=== PATIENT | female | born 1940 | race Caucasian/White ===

== ENCOUNTER → 2016-10-05 | Outpatient (REF) | payer MEDICARE, MEDICAID ==
[~2016-10-05] MED LIST: /ESOM40CA OR; /SUCR1TA OR; ASPI81TA45 OR; CALCTAB22 OR; DRIS50002 PO; TYLE167L PO
[2016-10-05 16:32] LABS: ANION GAP 9 MEQ/L (8-16); BLOOD UREA NITROGEN 12 MG/DL (7-18); CALCIUM LEVEL 8.8 MG/DL (8.8-10.2); CARBON DIOXIDE LEVEL 25 MEQ/L (21-32); CHLORIDE LEVEL 108 MEQ/L (98-107); CREATININE FOR GFR 0.81 MG/DL (0.55-1.02); GLOMERULAR FILTRATION RATE > 60.0 (>39); GLUCOSE, FASTING 89 MG/DL (83-110); POTASSIUM SERUM 4.4 MEQ/L (3.5-5.1); SODIUM LEVEL 142 MEQ/L (136-145)
[2016-10-05 17:11] LABS: BASO % 0.5 % (0.0-1.0); EOS # 0.2 K/mm3 (0.0-0.50); EOS % 3.1 % (0.0-3.0); LARGE UNSTAINED CELL # 0.2 K/mm3 (0.0-0.4); LARGE UNSTAINED CELL % 2.6 % (0.0-4.0); LYMPH # 2.5 K/mm3 (1.5-4.5); LYMPH % 36.2 % (24.0-44.0); MEAN CORPUSCULAR HEMOGLOBIN 28.4 pg (27.0-33.0); MEAN CORPUSCULAR HGB CONC 32.1 g/dl (32.0-36.5); MEAN CORPUSCULAR VOLUME 88.4 fl (80.0-96.0); MONO # 0.5 K/mm3 (0.0-0.8); MONO % 7.6 % (0.0-5.0); NEUTROPHILS # 3.4 K/mm3 (1.8-7.7); NEUTROPHILS % 49.8 % (36.0-66.0); PLATELET COUNT, AUTOMATED 347 k/mm3 (150-450); RED CELL DISTRIBUTION WIDTH 13.1 % (11.5-14.5); WHITE BLOOD COUNT 6.8 K/mm3 (4.0-10.0)
== END ==
LOC: M SFHCPLAZ 13:34
PROVIDERS: ATTEND Physician Assistant Medical
DX: N39.0 Urinary tract infection, site not specified (principal)
CPT/HCPCS: 36415; 80048; 81001; 81002; 85025; 87088; 87186; G0463

== ENCOUNTER → 2016-10-27 | Outpatient (CLI) | payer MEDICARE, MEDICAID ==
--- NOTE | 2016-10-27 11:57 | REPMRS ---
Patient History The patient states she has not had a clinical breast exam in over a year. Patient is postmenopausal. Family history of breast cancer in sister at age 50 or over and ovarian cancer in sister. Digital Woman Screen Mammo: October 27, 2016 - Exam #: [id number] Bilateral CC and MLO view(s) were taken. Technologist: Teri Kaba, Technologist Prior study comparison: November 03, 2015, digital woman screen mammo performed at [facility]. October 31, 2014, digital woman screen mammo performed at [facility]. October 05, 2013, digital woman screen mammo performed at [facility] [place]. FINDINGS: There are scattered fibroglandular densities. There has been no change in the appearance of the mammogram from the prior studies. There is a mild amount of scattered fibroglandular density which is fairly symmetric. There is no interval development of dominant mass, architectural distortion, or clustered microcalcification suggestive of malignancy. ASSESSMENT: BI-RADS/ACR category 1 mammogram. Negative. Recommendation Routine screening mammogram in 1 year (for women over age 40). This mammogram was interpreted with the aid of an FDA-approved computer-aided dectection system. Electronically Signed By: Cosme Lemus MD 10/27/16 0730
== END ==
LOC: M WHC 09:58
PROVIDERS: ATTEND Family Medicine
DX: Z12.31 Encounter for screening mammogram for malignant neoplasm of breast (principal); Z78.0 Asymptomatic menopausal state; Z80.3 Family history of malignant neoplasm of breast
CPT/HCPCS: G0202; G0463

== ENCOUNTER → 2016-12-17 | Outpatient (REF) | payer MEDICARE, MEDICAID ==
[2016-12-17 11:27] LABS: BASO % 0.4 % (0.0-1.0); EOS # 0.3 K/mm3 (0.0-0.50); EOS % 3.9 % (0.0-3.0); LARGE UNSTAINED CELL # 0.1 K/mm3 (0.0-0.4); LARGE UNSTAINED CELL % 1.8 % (0.0-4.0); LYMPH # 2.5 K/mm3 (1.5-4.5); LYMPH % 35.4 % (24.0-44.0); MEAN CORPUSCULAR HEMOGLOBIN 27.4 pg (27.0-33.0); MEAN CORPUSCULAR HGB CONC 31.4 g/dl (32.0-36.5); MEAN CORPUSCULAR VOLUME 87.4 fl (80.0-96.0); MONO # 0.5 K/mm3 (0.0-0.8); MONO % 7.2 % (0.0-5.0); NEUTROPHILS # 3.4 K/mm3 (1.8-7.7); NEUTROPHILS % 51.3 % (36.0-66.0); PLATELET COUNT, AUTOMATED 346 k/mm3 (150-450); RED CELL DISTRIBUTION WIDTH 14.4 % (11.5-14.5); WHITE BLOOD COUNT 6.6 K/mm3 (4.0-10.0)
[2016-12-17 11:39] LABS: ALBUMIN 3.7 GM/DL (3.2-5.2); ALBUMIN/GLOBULIN RATIO 1.19 (1.00-1.93); ALKALINE PHOSPHATASE 92 U/L (45-117); ALT/SGPT 18 U/L (12-78); ANION GAP 7 MEQ/L (8-16); AST/SGOT 13 U/L (15-37); BILIRUBIN,TOTAL 0.4 MG/DL (0.2-1.0); BLOOD UREA NITROGEN 16 MG/DL (7-18); CALCIUM LEVEL 8.8 MG/DL (8.8-10.2); CARBON DIOXIDE LEVEL 28 MEQ/L (21-32); CHLORIDE LEVEL 109 MEQ/L (98-107); CHOLESTEROL LEVEL 176 MG/DL (<200); CREATININE FOR GFR 0.89 MG/DL (0.55-1.02); GLOMERULAR FILTRATION RATE > 60.0 (>39); GLUCOSE, FASTING 85 MG/DL (83-110); POTASSIUM SERUM 4.5 MEQ/L (3.5-5.1); SODIUM LEVEL 144 MEQ/L (136-145); TOTAL PROTEIN 6.8 GM/DL (6.4-8.2); TRIGLYCERIDES LEVEL 73 MG/DL (<150)
== END ==
LOC: M SFHCPLAZ 09:03
PROVIDERS: ATTEND Family Medicine
DX: K21.9 Gastro-esophageal reflux disease without esophagitis (principal); R73.01 Impaired fasting glucose

== ENCOUNTER → 2017-01-25 | Outpatient (REF) | payer MEDICARE, MEDICAID ==
[2017-01-25 18:25] LABS: WHITE BLOOD COUNT 7.5 K/mm3 (4.0-10.0)
[2017-01-25 18:26] LABS: MEAN CORPUSCULAR HEMOGLOBIN 28.7 pg (27.0-33.0); MEAN CORPUSCULAR HGB CONC 32.2 g/dl (32.0-36.5); MEAN CORPUSCULAR VOLUME 89.3 fl (80.0-96.0); RED CELL DISTRIBUTION WIDTH 14.1 % (11.5-14.5)
[2017-01-25 18:53] LABS: ERYTHROCYTE SEDIMENTATION RATE 10 mm/hr (0-30)
[2017-01-25 19:06] LABS: BASOPHILS 1 % (0-4); EOSINOPHILS 4 % (0-5)
[2017-02-03 14:18] LABS: ANTI SCLERODERMA ANTIBODIES <0.2 AI (0.0-0.9)
== END ==
LOC: M SFHCPLAZ 13:36
PROVIDERS: ATTEND Family Medicine
DX: I73.00 Raynaud's syndrome without gangrene (principal); Z79.82 Long term (current) use of aspirin; Z79.899 Other long term (current) drug therapy; M75.41 Impingement syndrome of right shoulder; M16.9 Osteoarthritis of hip, unspecified; M70.61 Trochanteric bursitis, right hip; K21.9 Gastro-esophageal reflux disease without esophagitis; M85.80 Other specified disorders of bone density and structure, unspecified site; E78.2 Mixed hyperlipidemia; R73.01 Impaired fasting glucose; E55.9 Vitamin D deficiency, unspecified; M50.30 Other cervical disc degeneration, unspecified cervical region; Z86.73 Personal history of transient ischemic attack (TIA), and cerebral infarction without residual deficits
CPT/HCPCS: 36415; 83615; 85007; 85027; 85652; 85730; 86021; 86038; 86140; 86235; G0463

== ENCOUNTER → 2017-04-29 | Outpatient (REF) | payer MEDICARE, MEDICAID ==
[2017-04-29 12:13] LABS: ALBUMIN 3.7 GM/DL (3.2-5.2); ALBUMIN/GLOBULIN RATIO 1.32 (1.00-1.93); ALKALINE PHOSPHATASE 71 U/L (45-117); ALT/SGPT 18 U/L (12-78); ANION GAP 8 MEQ/L (8-16); AST/SGOT 10 U/L (15-37); BILIRUBIN,TOTAL 0.4 MG/DL (0.2-1.0); BLOOD UREA NITROGEN 15 MG/DL (7-18); CALCIUM LEVEL 8.5 MG/DL (8.8-10.2); CARBON DIOXIDE LEVEL 27 MEQ/L (21-32); CHLORIDE LEVEL 110 MEQ/L (98-107); CREATININE FOR GFR 0.86 MG/DL (0.55-1.02); FERRITIN 21 NG/ML (8-252); GLOMERULAR FILTRATION RATE > 60.0 (>39); GLUCOSE, FASTING 82 MG/DL (83-110); PERCENT SATURATION 26.4 % (13.2-45.0); POTASSIUM SERUM 4.7 MEQ/L (3.5-5.1); SODIUM LEVEL 145 MEQ/L (136-145); TOTAL IRON BINDING CAPACITY 273 UG/DL (250-450); TOTAL PROTEIN 6.5 GM/DL (6.4-8.2)
== END ==
LOC: M SFHCPLAZ 09:22
PROVIDERS: ATTEND Family Medicine
DX: E55.9 Vitamin D deficiency, unspecified (principal); K21.9 Gastro-esophageal reflux disease without esophagitis; R73.01 Impaired fasting glucose; I44.0 Atrioventricular block, first degree

== ENCOUNTER → 2017-05-11 | Outpatient (REF) | payer MEDICARE, MEDICAID | LOC: M LAB REF 10:41 | PROVIDERS: ATTEND Physician Assistant Medical | DX: J31.0 Chronic rhinitis (principal) ==

== ENCOUNTER → 2017-06-23 | Outpatient (CLI) | payer MEDICARE, MEDICAID ==
--- NOTE | 2017-06-23 14:42 | REP ---
CT of the chest without IV contrast: There are no comparisons. There are no infiltrates, effusions, masses or nodules. There is no mediastinal or axillary adenopathy. No mediastinal hematoma. In the absence of IV contrast the study is insensitive for hilar adenopathy. The thoracic aorta is unremarkable except for occasional calcified atheroma. The cardiac size is normal. There is no pericardial effusion. The visualized upper abdominal contents are unremarkable. Surgical clips in the gallbladder fossa. There is a nondisplaced fracture of the manubrium. There is grade 1 compression deformity of the T3 vertebral body. Impression: Nondisplaced fracture manubrium. Grade 1 compression deformity of the T3 vertebral body. Otherwise, negative CT study of the chest. There is no pneumothorax or hemothorax. No nodules or masses. Signed by Gabriel Mason MD 06/23/2017 02:33 P
== END ==
LOC: M RAD 13:06
PROVIDERS: ATTEND Family Medicine
DX: M79.2 Neuralgia and neuritis, unspecified (principal)

== ENCOUNTER → 2017-08-03 | Outpatient (REF) | payer MEDICARE, MEDICAID | LOC: M LAB REF 16:58 | PROVIDERS: ATTEND Physician Assistant Medical | DX: J31.0 Chronic rhinitis (principal) ==

== ENCOUNTER → 2017-08-31 | Outpatient (REF) | payer MEDICARE, MEDICAID ==
[2017-08-31 11:09] LABS: ALBUMIN 3.8 GM/DL (3.2-5.2); ALBUMIN/GLOBULIN RATIO 1.19 (1.00-1.93); ALKALINE PHOSPHATASE 86 U/L (45-117); ALT/SGPT 17 U/L (12-78); ANION GAP 7 MEQ/L (8-16); AST/SGOT 16 U/L (7-37); BILIRUBIN,TOTAL 0.4 MG/DL (0.2-1.0); BLOOD UREA NITROGEN 13 MG/DL (7-18); CALCIUM LEVEL 8.8 MG/DL (8.8-10.2); CARBON DIOXIDE LEVEL 26 MEQ/L (21-32); CHLORIDE LEVEL 111 MEQ/L (98-107); CHOLESTEROL LEVEL 179 MG/DL (<200); CREATININE FOR GFR 0.72 MG/DL (0.55-1.02); GLOMERULAR FILTRATION RATE > 60.0 (>39); GLUCOSE, FASTING 81 MG/DL (83-110); POTASSIUM SERUM 4.4 MEQ/L (3.5-5.1); SODIUM LEVEL 144 MEQ/L (136-145); TRIGLYCERIDES LEVEL 73 MG/DL (<150)
== END ==
LOC: M SFHCPLAZ 08:49
PROVIDERS: ATTEND Family Medicine
DX: E55.9 Vitamin D deficiency, unspecified (principal); E78.2 Mixed hyperlipidemia; R73.01 Impaired fasting glucose

== ENCOUNTER → 2017-09-05 | Outpatient (REF) | payer MEDICARE, MEDICAID ==
[2017-09-05 16:33] LABS: CALCIUM OXALATE CRYSTALS SMALL
== END ==
LOC: M SFHCPLAZ 12:42
PROVIDERS: ATTEND Family Medicine
DX: R73.01 Impaired fasting glucose (principal); D50.9 Iron deficiency anemia, unspecified; N32.81 Overactive bladder; Z79.82 Long term (current) use of aspirin; Z79.899 Other long term (current) drug therapy

== ENCOUNTER → 2017-09-08 | Outpatient (CLI) | payer MEDICARE, MEDICAID ==
--- NOTE | 2017-09-08 14:48 | REP ---
ULTRASOUND URINARY BLADDER: Real-time sonographic evaluation of the urinary bladder performed. The patient states the bladder is full. It measures 5.5 x 6.7 x 5.7 cm for a total volume of 137 mL. After voiding, volume actually increased, bladder measuring 4.3 x 7.1 x 4.8 cm for a total volume of 147 mL. No bladder wall thickening or mass is seen. No intraluminal calculus is seen. There are bilateral ureteral jets in the urinary bladder with Doppler color evaluation. IMPRESSION: Suboptimal distention of the bladder with no emptying after voiding. No mass or calculus. Signed by Gabriel Hamilton MD 09/08/2017 08:40 P
== END ==
LOC: M RAD 12:28
PROVIDERS: ATTEND Family Medicine
DX: N32.81 Overactive bladder (principal)

== ENCOUNTER 2017-10-10 12:36 | Inpatient (IN) | payer MEDICARE, MEDICAID ==
[2017-10-10] MEDS: PANTOPRAZOLE 40MG TAB (PROTONIX) PO (09:00)
[2017-10-10] MEDS: NS 1,000 ML IV ×3 (13:33→23:33)
[2017-10-10] MEDS: ONDANSETRON 4MG/2ML VIAL (J2405) IV ×2 (13:45→16:23)
[2017-10-10] MEDS ORDERED: MORPHINE 4 MG/ML 1ML SYRINGE IV (13:45)
[2017-10-10] MEDS: fentaNYL 100 MCG/2 ML INJECTION (J3010) IV (13:45)
[2017-10-10] MEDS ORDERED: PERCOCET 5MG/325MG TAB PO (15:30)
[2017-10-10] MEDS ORDERED: BISACODYL 5 MG TAB PO (15:30)
[2017-10-10 15:53] LABS: BASO % 0.3 % (0.0-1.0); EOS % 0.2 % (0.0-3.0); HEMATOCRIT 38.7 % (36.0-47.0); HEMOGLOBIN 12.6 g/dl (12.0-16.0); IMMATURE GRANULOCYTE # 0.1 10^3/uL (0-0); IMMATURE GRANULOCYTE % 0.6 % (0-0); LYMPH % 6.9 % (24.0-44.0); MEAN CORPUSCULAR HEMOGLOBIN 28.6 pg (27.0-33.0); MEAN CORPUSCULAR HGB CONC 32.6 g/dl (32.0-36.5); MONO # 0.8 10^3/uL (0.0-0.8); MONO % 5.3 % (0.0-5.0); NEUTROPHILS # 12.6 10^3/uL (1.8-7.7); NEUTROPHILS % 86.7 % (36.0-66.0); PLATELET COUNT, AUTOMATED 323 10^3/uL (150-450); RED CELL DISTRIBUTION WIDTH 13.5 % (11.5-14.5); WHITE BLOOD COUNT 14.5 10^3/uL (4.0-10.0)
[2017-10-10 15:56] LABS: INR 1.02; PARTIAL THROMBOPLASTIN TIME 28.5 SECONDS (26.8-37.9); PROTHROMBIN TIME 13.5 SECONDS (12.4-14.5)
[2017-10-10 16:11] LABS: ANION GAP 7 MEQ/L (8-16); BLOOD UREA NITROGEN 18 MG/DL (7-18); CALCIUM LEVEL 8.4 MG/DL (8.8-10.2); CARBON DIOXIDE LEVEL 26 MEQ/L (21-32); CHLORIDE LEVEL 108 MEQ/L (98-107); CK-MB VALUE MASS 1.2 NG/ML (0.0-3.6); CPK CREATINE PHOSPHOKINASE 48 U/L (26-192); CREATININE FOR GFR 0.85 MG/DL (0.55-1.02); GLOMERULAR FILTRATION RATE > 60.0 (>39); GLUCOSE, FASTING 114 MG/DL (70-100); POTASSIUM SERUM 3.7 MEQ/L (3.5-5.1); SODIUM LEVEL 141 MEQ/L (136-145); TROPONIN I 0.08 NG/ML (< 0.10)
[2017-10-10] MEDS: PERCOCET 5MG/325MG TAB PO ×2 (16:22→21:16)
[2017-10-10] MEDS: SENOKOT S TAB PO (21:16)
[2017-10-11] MEDS: PERCOCET 5MG/325MG TAB PO ×4 (01:53→18:38)
[2017-10-11] MEDS: NS 1,000 ML IV ×3 (04:22→18:40)
[2017-10-11 07:09] LABS: BASO % 0.5 % (0.0-1.0); EOS # 0.1 10^3/uL (0.0-0.50); EOS % 0.9 % (0.0-3.0); HEMATOCRIT 35.4 % (36.0-47.0); HEMOGLOBIN 11.4 g/dl (12.0-16.0); IMMATURE GRANULOCYTE % 0.2 % (0-0); LYMPH # 1.9 10^3/uL (1.5-4.5); LYMPH % 22.4 % (24.0-44.0); MEAN CORPUSCULAR HEMOGLOBIN 28.4 pg (27.0-33.0); MEAN CORPUSCULAR HGB CONC 32.2 g/dl (32.0-36.5); MEAN CORPUSCULAR VOLUME 88.3 fl (80.0-96.0); MONO # 0.9 10^3/uL (0.0-0.8); MONO % 11.1 % (0.0-5.0); NEUTROPHILS # 5.5 10^3/uL (1.8-7.7); NEUTROPHILS % 64.9 % (36.0-66.0); PLATELET COUNT, AUTOMATED 273 10^3/uL (150-450); RED BLOOD COUNT 4.01 10^6/uL (4.00-5.40); RED CELL DISTRIBUTION WIDTH 13.9 % (11.5-14.5); WHITE BLOOD COUNT 8.5 10^3/uL (4.0-10.0)
[2017-10-11 07:20] LABS: INR 1.07; PROTHROMBIN TIME 14.1 SECONDS (12.4-14.5)
[2017-10-11 07:33] LABS: ANION GAP 4 MEQ/L (8-16); BLOOD UREA NITROGEN 13 MG/DL (7-18); CALCIUM LEVEL 7.8 MG/DL (8.8-10.2); CARBON DIOXIDE LEVEL 27 MEQ/L (21-32); CHLORIDE LEVEL 110 MEQ/L (98-107); CREATININE FOR GFR 0.75 MG/DL (0.55-1.02); GLOMERULAR FILTRATION RATE > 60.0 (>39); GLUCOSE, FASTING 95 MG/DL (70-100); POTASSIUM SERUM 4.2 MEQ/L (3.5-5.1); SODIUM LEVEL 141 MEQ/L (136-145)
[2017-10-11] MEDS: PANTOPRAZOLE 40MG TAB (PROTONIX) PO (09:00)
[2017-10-11] MEDS: MIRALAX *UNIT DOSE* 17GM PACKET PO (09:00)
[2017-10-11] MEDS: SENOKOT S TAB PO (09:00)
[2017-10-11] MEDS: SOLIFENACIN 5 MG TAB PO (09:00)
[2017-10-11] MEDS: ACETAMINOPHEN TAB 650MG DOSE (2X325MG) PO (15:24)
[2017-10-11] MEDS ORDERED: VANCOMYCIN 1000 MG/20 ML VIAL (J3370) As Ordered (19:37)
[2017-10-11] MEDS: VANCOMYCIN HCL 1,000 MG, VIAL MATE ADAPTER 1 EACH in D5W 250 ML IV (19:42)
[2017-10-11] MEDS ORDERED: ePHEDrine INJ 50 MG/ML VIAL As Ordered (21:16)
[2017-10-11] MEDS ORDERED: PROPOFOL 200 MG/20 ML VIAL As Ordered (21:16)
[2017-10-11] MEDS ORDERED: SUCCINYLCHOLINE 100 MG/5 ML SYRINGE (J0330) As Ordered (21:16)
[2017-10-11] MEDS ORDERED: fentaNYL 100 MCG/2 ML INJECTION (J3010) As Ordered ×2 (21:16→22:17)
[2017-10-11] MEDS ORDERED: ONDANSETRON 4MG/2ML VIAL (J2405) As Ordered ×2 (21:43→23:02)
[2017-10-11] MEDS ORDERED: METOCLOPRAMIDE INJ 10MG/2ML VIAL (J2765) As Ordered (23:10)
[2017-10-11] MEDS: ONDANSETRON 4MG/2ML VIAL (J2405) IV (23:15)
[2017-10-11] MEDS: METOCLOPRAMIDE INJ 10MG/2ML VIAL (J2765) IV (23:22)
[2017-10-12] MEDS ORDERED: fentaNYL 100 MCG/2 ML INJECTION (J3010) As Ordered (00:01)
[2017-10-12] MEDS: fentaNYL 100 MCG/2 ML INJECTION (J3010) IV ×2 (00:08→00:15)
[2017-10-12] MEDS: LR 1,000 ML IV ×2 (00:15→00:30)
[2017-10-12] MEDS ORDERED: ONDANSETRON 4MG/2ML VIAL (J2405) IV (00:15)
[2017-10-12] MEDS ORDERED: FLEET ENEMA PR (00:30)
[2017-10-12] MEDS: ACETAMINOPHEN 500 MG TAB PO ×3 (05:28→21:23)
[2017-10-12 05:38] LABS: BASO % 0.1 % (0.0-1.0); EOS % 0.2 % (0.0-3.0); HEMATOCRIT 30.9 % (36.0-47.0); HEMOGLOBIN 9.8 g/dl (12.0-16.0); IMMATURE GRANULOCYTE % 0.3 % (0-0); LYMPH # 1.5 10^3/uL (1.5-4.5); MEAN CORPUSCULAR HEMOGLOBIN 28.2 pg (27.0-33.0); MEAN CORPUSCULAR HGB CONC 31.7 g/dl (32.0-36.5); MEAN CORPUSCULAR VOLUME 88.8 fl (80.0-96.0); MONO # 1.1 10^3/uL (0.0-0.8); MONO % 9.6 % (0.0-5.0); NEUTROPHILS % 76.8 % (36.0-66.0); PLATELET COUNT, AUTOMATED 256 10^3/uL (150-450); RED BLOOD COUNT 3.48 10^6/uL (4.00-5.40); RED CELL DISTRIBUTION WIDTH 13.8 % (11.5-14.5); WHITE BLOOD COUNT 11.8 10^3/uL (4.0-10.0)
[2017-10-12 05:46] LABS: INR 1.24; PROTHROMBIN TIME 15.8 SECONDS (12.4-14.5)
[2017-10-12 06:01] LABS: ANION GAP 6 MEQ/L (8-16); BLOOD UREA NITROGEN 9 MG/DL (7-18); CALCIUM LEVEL 7.6 MG/DL (8.8-10.2); CARBON DIOXIDE LEVEL 27 MEQ/L (21-32); CHLORIDE LEVEL 108 MEQ/L (98-107); CREATININE FOR GFR 0.71 MG/DL (0.55-1.02); GLOMERULAR FILTRATION RATE > 60.0 (>39); GLUCOSE, FASTING 125 MG/DL (70-100); POTASSIUM SERUM 4.1 MEQ/L (3.5-5.1); SODIUM LEVEL 141 MEQ/L (136-145)
[2017-10-12] MEDS: VANCOMYCIN HCL 1,000 MG, VIAL MATE ADAPTER 1 EACH in D5W 250 ML IV (08:11)
[2017-10-12] MEDS: ENOXAPARIN 40 MG/0.4 ML SYRINGE (J1650) SC (08:12)
[2017-10-12] MEDS: MOM 30ML SUSPENSION UDC PO (08:13)
[2017-10-12] MEDS: MIRALAX *UNIT DOSE* 17GM PACKET PO (08:13)
[2017-10-12] MEDS: SENOKOT S TAB PO ×2 (08:13→21:00)
[2017-10-13] MEDS: ACETAMINOPHEN 500 MG TAB PO (05:56)
[2017-10-13 06:55] LABS: BASO % 0.3 % (0.0-1.0); EOS # 0.2 10^3/uL (0.0-0.50); EOS % 1.6 % (0.0-3.0); HEMATOCRIT 28.3 % (36.0-47.0); HEMOGLOBIN 9.1 g/dl (12.0-16.0); IMMATURE GRANULOCYTE % 0.4 % (0-0); LYMPH # 1.3 10^3/uL (1.5-4.5); LYMPH % 13.8 % (24.0-44.0); MEAN CORPUSCULAR HEMOGLOBIN 28.5 pg (27.0-33.0); MEAN CORPUSCULAR HGB CONC 32.2 g/dl (32.0-36.5); MEAN CORPUSCULAR VOLUME 88.7 fl (80.0-96.0); MONO # 0.9 10^3/uL (0.0-0.8); MONO % 9.5 % (0.0-5.0); NEUTROPHILS # 6.9 10^3/uL (1.8-7.7); NEUTROPHILS % 74.4 % (36.0-66.0); PLATELET COUNT, AUTOMATED 225 10^3/uL (150-450); RED BLOOD COUNT 3.19 10^6/uL (4.00-5.40); RED CELL DISTRIBUTION WIDTH 13.8 % (11.5-14.5); WHITE BLOOD COUNT 9.3 10^3/uL (4.0-10.0)
[2017-10-13 07:13] LABS: ANION GAP 6 MEQ/L (8-16); BLOOD UREA NITROGEN 9 MG/DL (7-18); CALCIUM LEVEL 7.5 MG/DL (8.8-10.2); CARBON DIOXIDE LEVEL 24 MEQ/L (21-32); CHLORIDE LEVEL 110 MEQ/L (98-107); CREATININE FOR GFR 0.52 MG/DL (0.55-1.02); GLOMERULAR FILTRATION RATE > 60.0 (>39); GLUCOSE, FASTING 88 MG/DL (70-100); POTASSIUM SERUM 3.9 MEQ/L (3.5-5.1); SODIUM LEVEL 140 MEQ/L (136-145)
[2017-10-13] MEDS: ENOXAPARIN 40 MG/0.4 ML SYRINGE (J1650) SC (08:33)
[2017-10-13] MEDS: traMADol 50 MG TAB PO (08:33)
[2017-10-13] MEDS: MIRALAX *UNIT DOSE* 17GM PACKET PO (08:34)
[2017-10-13] MEDS: MOM 30ML SUSPENSION UDC PO (08:34)
[2017-10-13] MEDS: SENOKOT S TAB PO (08:34)
[2017-10-14] MEDS ORDERED: VITAMIN D 50,000 UNITS CAPSULE (ERGOCALCIFEROL 1.25MG) PO (09:00)
== END 2017-10-13 14:10 | disposition other institution (70) | DRG 482 ==
LOC: M ED 12:36 → M ED INP 16:12 → M MS5PR 21:10
PROC: 0QS606Z Reposition Right Upper Femur with Intramedullary Internal Fixation Device, Open Approach (ICD-10-PCS; principal; 2017-10-11 15:30)
DX: S72.144A Nondisplaced intertrochanteric fracture of right femur, initial encounter for closed fracture (principal); K21.9 Gastro-esophageal reflux disease without esophagitis; J44.9 Chronic obstructive pulmonary disease, unspecified; J30.9 Allergic rhinitis, unspecified; E78.5 Hyperlipidemia, unspecified; Z86.73 Personal history of transient ischemic attack (TIA), and cerebral infarction without residual deficits; W00.0XXA Fall on same level due to ice and snow, initial encounter; Y93.01 Activity, walking, marching and hiking; Z79.899 Other long term (current) drug therapy; Z88.1 Allergy status to other antibiotic agents; Z88.0 Allergy status to penicillin; Z88.2 Allergy status to sulfonamides; Z88.5 Allergy status to narcotic agent; Z88.8 Allergy status to other drugs, medicaments and biological substances; Z87.440 Personal history of urinary (tract) infections; Z90.49 Acquired absence of other specified parts of digestive tract; Z90.710 Acquired absence of both cervix and uterus; Z87.891 Personal history of nicotine dependence

== ENCOUNTER 2017-10-13 14:15 | Inpatient (IN) | payer MEDICARE, MEDICAID ==
[~2017-10-13 14:15] MED LIST changes: -/ESOM40CA OR; -/SUCR1TA OR; -ASPI81TA45 OR; +BISACODYL 5 MG TAB PO; -CALCTAB22 OR; -DRIS50002 PO; +FLEET ENEMA PR; +MIRALAX *UNIT DOSE* 17GM PACKET PO; +MOM 30ML SUSPENSION UDC PO; -TYLE167L PO
[2017-10-13 15:53] LABS: APPEARANCE, URINE CLEAR (CLEAR); BACTERIA, URINE AUTO NEGATIVE (NEGATIVE); BILIRUBIN, URINE AUTO NEGATIVE (NEGATIVE); BLOOD, URINE BLOOD NEGATIVE (NEGATIVE); COLOR, URINE YELLOW (YELLOW); GLUCOSE, URINE (UA) AUTO NEGATIVE (NEGATIVE); KETONE, URINE AUTO 1+ mg/dL (NEGATIVE); LEUKOCYTE ESTERASE, URINE AUTO NEGATIVE (NEGATIVE); MUCUS, URINE SMALL (NEGATIVE); NITRITE, URINE AUTO NEGATIVE (NEGATIVE); PROTEIN, URINE AUTO NEGATIVE (NEGATIVE); RBC, URINE AUTO 2 /HPF (0-3); SPECIFIC GRAVITY URINE AUTO 1.016 (1.002-1.035); SQUAMOUS EPITHELIAL CELL UR AU 2 /HPF (0-6); UROBILINOGEN, URINE AUTO 0.2 mg/dL (0.0-2.0); WBC, URINE AUTO 3 /HPF (0-3)
[2017-10-13] MEDS: OMEPRAZOLE 20 MG CAP PO (16:35)
[2017-10-13] MEDS: ACETAMINOPHEN TAB 650MG DOSE (2X325MG) PO (22:10)
[2017-10-13] MEDS: SENOKOT S TAB PO (22:10)
[2017-10-14] MEDS: ACETAMINOPHEN TAB 650MG DOSE (2X325MG) PO ×2 (06:11→20:22)
[2017-10-14 07:29] LABS: BASO % 0.4 % (0.0-1.0); EOS # 0.2 10^3/uL (0.0-0.50); EOS % 1.9 % (0.0-3.0); HEMATOCRIT 26.4 % (36.0-47.0); HEMOGLOBIN 8.5 g/dl (12.0-16.0); IMMATURE GRANULOCYTE # 0.1 10^3/uL (0-0); IMMATURE GRANULOCYTE % 0.6 % (0-0); LYMPH # 1.7 10^3/uL (1.5-4.5); LYMPH % 18.2 % (24.0-44.0); MEAN CORPUSCULAR HEMOGLOBIN 27.8 pg (27.0-33.0); MEAN CORPUSCULAR HGB CONC 32.2 g/dl (32.0-36.5); MEAN CORPUSCULAR VOLUME 86.3 fl (80.0-96.0); MONO % 10.6 % (0.0-5.0); NEUTROPHILS # 6.4 10^3/uL (1.8-7.7); NEUTROPHILS % 68.3 % (36.0-66.0); PLATELET COUNT, AUTOMATED 275 10^3/uL (150-450); RED BLOOD COUNT 3.06 10^6/uL (4.00-5.40); WHITE BLOOD COUNT 9.4 10^3/uL (4.0-10.0)
[2017-10-14 07:55] LABS: ALBUMIN 2.4 GM/DL (3.2-5.2); ALBUMIN/GLOBULIN RATIO 0.75 (1.00-1.93); ALKALINE PHOSPHATASE 114 U/L (45-117); ALT/SGPT 22 U/L (12-78); ANION GAP 6 MEQ/L (8-16); AST/SGOT 22 U/L (7-37); BILIRUBIN,TOTAL 0.5 MG/DL (0.2-1.0); BLOOD UREA NITROGEN 10 MG/DL (7-18); CALCIUM LEVEL 7.3 MG/DL (8.8-10.2); CARBON DIOXIDE LEVEL 26 MEQ/L (21-32); CHLORIDE LEVEL 108 MEQ/L (98-107); GLOMERULAR FILTRATION RATE > 60.0 (>39); GLUCOSE, FASTING 98 MG/DL (70-100); POTASSIUM SERUM 3.6 MEQ/L (3.5-5.1); SODIUM LEVEL 140 MEQ/L (136-145); TOTAL PROTEIN 5.6 GM/DL (6.4-8.2)
[2017-10-14] MEDS: VITAMIN D 50,000 UNITS CAPSULE (ERGOCALCIFEROL 1.25MG) PO (08:46)
[2017-10-14] MEDS: SENOKOT S TAB PO ×2 (08:46→20:23)
[2017-10-14] MEDS: OMEPRAZOLE 20 MG CAP PO (08:46)
[2017-10-14] MEDS: ENOXAPARIN 40 MG/0.4 ML SYRINGE (J1650) SC (08:47)
[2017-10-15 06:28] LABS: HEMATOCRIT 25.1 % (36.0-47.0); HEMOGLOBIN 8.2 g/dl (12.0-16.0); MEAN CORPUSCULAR HEMOGLOBIN 28.3 pg (27.0-33.0); MEAN CORPUSCULAR HGB CONC 32.7 g/dl (32.0-36.5); MEAN CORPUSCULAR VOLUME 86.6 fl (80.0-96.0); PLATELET COUNT, AUTOMATED 307 10^3/uL (150-450); WHITE BLOOD COUNT 8.5 10^3/uL (4.0-10.0)
[2017-10-15] MEDS: ENOXAPARIN 40 MG/0.4 ML SYRINGE (J1650) SC (08:33)
[2017-10-15] MEDS: OMEPRAZOLE 20 MG CAP PO (08:33)
[2017-10-15] MEDS: SENOKOT S TAB PO ×4 (08:33→21:00)
[2017-10-16] MEDS: ACETAMINOPHEN TAB 650MG DOSE (2X325MG) PO ×2 (02:45→21:31)
[2017-10-16 06:25] LABS: HEMATOCRIT 24.4 % (36.0-47.0); MEAN CORPUSCULAR HEMOGLOBIN 28.3 pg (27.0-33.0); MEAN CORPUSCULAR HGB CONC 32.8 g/dl (32.0-36.5); MEAN CORPUSCULAR VOLUME 86.2 fl (80.0-96.0); PLATELET COUNT, AUTOMATED 365 10^3/uL (150-450); RED BLOOD COUNT 2.83 10^6/uL (4.00-5.40); RED CELL DISTRIBUTION WIDTH 14.1 % (11.5-14.5); WHITE BLOOD COUNT 7.9 10^3/uL (4.0-10.0)
[2017-10-16] MEDS: SENOKOT S TAB PO ×2 (08:15→19:18)
[2017-10-16] MEDS: ENOXAPARIN 40 MG/0.4 ML SYRINGE (J1650) SC (08:15)
[2017-10-16] MEDS: OMEPRAZOLE 20 MG CAP PO (08:15)
[2017-10-17] MEDS: ACETAMINOPHEN TAB 650MG DOSE (2X325MG) PO ×2 (04:07→17:46)
[2017-10-17] MEDS: ENOXAPARIN 40 MG/0.4 ML SYRINGE (J1650) SC (08:35)
[2017-10-17] MEDS: OMEPRAZOLE 20 MG CAP PO (08:35)
[2017-10-17] MEDS: SENOKOT S TAB PO ×2 (08:36→21:00)
[2017-10-17] MEDS: traMADol 50 MG TAB PO (21:14)
[2017-10-18 07:30] LABS: HEMATOCRIT 25.8 % (36.0-47.0); HEMOGLOBIN 8.3 g/dl (12.0-16.0); MEAN CORPUSCULAR HEMOGLOBIN 27.9 pg (27.0-33.0); MEAN CORPUSCULAR HGB CONC 32.2 g/dl (32.0-36.5); MEAN CORPUSCULAR VOLUME 86.6 fl (80.0-96.0); PLATELET COUNT, AUTOMATED 501 10^3/uL (150-450); RED BLOOD COUNT 2.98 10^6/uL (4.00-5.40); RED CELL DISTRIBUTION WIDTH 14.6 % (11.5-14.5); WHITE BLOOD COUNT 7.3 10^3/uL (4.0-10.0)
[2017-10-18] MEDS: ENOXAPARIN 40 MG/0.4 ML SYRINGE (J1650) SC (08:18)
[2017-10-18] MEDS: SENOKOT S TAB PO (08:18)
[2017-10-18] MEDS: OMEPRAZOLE 20 MG CAP PO (08:18)
[2017-10-18] MEDS: traMADol 50 MG TAB PO ×2 (08:18→20:16)
[2017-10-19] MEDS: traMADol 50 MG TAB PO ×3 (02:16→22:19)
[2017-10-19 06:56] LABS: HEMATOCRIT 26.2 % (36.0-47.0); HEMOGLOBIN 8.4 g/dl (12.0-16.0); MEAN CORPUSCULAR HEMOGLOBIN 28.3 pg (27.0-33.0); MEAN CORPUSCULAR HGB CONC 32.1 g/dl (32.0-36.5); MEAN CORPUSCULAR VOLUME 88.2 fl (80.0-96.0); PLATELET COUNT, AUTOMATED 512 10^3/uL (150-450); RED BLOOD COUNT 2.97 10^6/uL (4.00-5.40); RED CELL DISTRIBUTION WIDTH 14.8 % (11.5-14.5); WHITE BLOOD COUNT 8.5 10^3/uL (4.0-10.0)
[2017-10-19] MEDS: OMEPRAZOLE 20 MG CAP PO (08:45)
[2017-10-19] MEDS: ENOXAPARIN 40 MG/0.4 ML SYRINGE (J1650) SC (08:46)
[2017-10-20 06:59] LABS: HEMATOCRIT 25.3 % (36.0-47.0); HEMOGLOBIN 8.1 g/dl (12.0-16.0); MEAN CORPUSCULAR VOLUME 87.5 fl (80.0-96.0); PLATELET COUNT, AUTOMATED 551 10^3/uL (150-450); RED BLOOD COUNT 2.89 10^6/uL (4.00-5.40); RED CELL DISTRIBUTION WIDTH 15.2 % (11.5-14.5); WHITE BLOOD COUNT 8.8 10^3/uL (4.0-10.0)
[2017-10-20 07:18] LABS: ALBUMIN 2.6 GM/DL (3.2-5.2); ALBUMIN/GLOBULIN RATIO 0.81 (1.00-1.93); ALKALINE PHOSPHATASE 100 U/L (45-117); ALT/SGPT 19 U/L (12-78); ANION GAP 6 MEQ/L (8-16); AST/SGOT 14 U/L (7-37); BILIRUBIN,TOTAL 0.6 MG/DL (0.2-1.0); BLOOD UREA NITROGEN 8 MG/DL (7-18); CALCIUM LEVEL 8.3 MG/DL (8.8-10.2); CARBON DIOXIDE LEVEL 28 MEQ/L (21-32); CHLORIDE LEVEL 108 MEQ/L (98-107); CREATININE FOR GFR 0.55 MG/DL (0.55-1.30); GLOMERULAR FILTRATION RATE > 60.0 (>39); GLUCOSE, FASTING 91 MG/DL (70-100); POTASSIUM SERUM 3.5 MEQ/L (3.5-5.1); SODIUM LEVEL 142 MEQ/L (136-145); TOTAL PROTEIN 5.8 GM/DL (6.4-8.2)
[2017-10-20] MEDS: traMADol 50 MG TAB PO (07:26)
[2017-10-20] MEDS: ENOXAPARIN 40 MG/0.4 ML SYRINGE (J1650) SC (08:48)
[2017-10-20] MEDS: OMEPRAZOLE 20 MG CAP PO (08:48)
[2017-10-20] MEDS: SOLIFENACIN 5 MG TAB PO (09:58)
[2017-10-20 14:26] LABS: IMMEDIATE SPIN CROSSMATCH 1 1
[2017-10-20] MEDS: FUROSEMIDE 20 MG TAB PO (15:04)
[2017-10-20] MEDS: ACETAMINOPHEN TAB 650MG DOSE (2X325MG) PO (23:17)
[2017-10-21] MEDS: VITAMIN D 50,000 UNITS CAPSULE (ERGOCALCIFEROL 1.25MG) PO (09:46)
[2017-10-21] MEDS: ENOXAPARIN 40 MG/0.4 ML SYRINGE (J1650) SC (09:46)
[2017-10-21] MEDS: OMEPRAZOLE 20 MG CAP PO (09:46)
[2017-10-21] MEDS: SOLIFENACIN 5 MG TAB PO (09:46)
[2017-10-21 10:52] LABS: HEMATOCRIT 33.1 % (36.0-47.0); MEAN CORPUSCULAR HEMOGLOBIN 28.7 pg (27.0-33.0); MEAN CORPUSCULAR HGB CONC 32.3 g/dl (32.0-36.5); MEAN CORPUSCULAR VOLUME 88.7 fl (80.0-96.0); PLATELET COUNT, AUTOMATED 625 10^3/uL (150-450); RED BLOOD COUNT 3.73 10^6/uL (4.00-5.40); RED CELL DISTRIBUTION WIDTH 15.5 % (11.5-14.5); WHITE BLOOD COUNT 9.3 10^3/uL (4.0-10.0)
[2017-10-21 10:59] LABS: HEMOGLOBIN 10.7 g/dl (12.0-16.0)
[2017-10-21] MEDS: traMADol 50 MG TAB PO (20:07)
[2017-10-22] MEDS: traMADol 50 MG TAB PO (05:44)
[2017-10-22 07:01] LABS: HEMOGLOBIN 10.5 g/dl (12.0-16.0); MEAN CORPUSCULAR HEMOGLOBIN 28.2 pg (27.0-33.0); MEAN CORPUSCULAR HGB CONC 31.8 g/dl (32.0-36.5); MEAN CORPUSCULAR VOLUME 88.5 fl (80.0-96.0); PLATELET COUNT, AUTOMATED 685 10^3/uL (150-450); RED BLOOD COUNT 3.73 10^6/uL (4.00-5.40); RED CELL DISTRIBUTION WIDTH 15.5 % (11.5-14.5); WHITE BLOOD COUNT 8.7 10^3/uL (4.0-10.0)
[2017-10-22 07:17] LABS: ANION GAP 5 MEQ/L (8-16); BLOOD UREA NITROGEN 7 MG/DL (7-18); CALCIUM LEVEL 8.5 MG/DL (8.8-10.2); CARBON DIOXIDE LEVEL 30 MEQ/L (21-32); CHLORIDE LEVEL 107 MEQ/L (98-107); CREATININE FOR GFR 0.69 MG/DL (0.55-1.30); GLOMERULAR FILTRATION RATE > 60.0 (>39); GLUCOSE, FASTING 95 MG/DL (70-100); POTASSIUM SERUM 3.8 MEQ/L (3.5-5.1); SODIUM LEVEL 142 MEQ/L (136-145)
[2017-10-22] MEDS: ENOXAPARIN 40 MG/0.4 ML SYRINGE (J1650) SC (09:42)
[2017-10-22] MEDS: SOLIFENACIN 5 MG TAB PO (09:42)
[2017-10-22] MEDS: OMEPRAZOLE 20 MG CAP PO (09:42)
[2017-10-22] MEDS: ACETAMINOPHEN TAB 650MG DOSE (2X325MG) PO (20:19)
[2017-10-23] MEDS: ENOXAPARIN 40 MG/0.4 ML SYRINGE (J1650) SC (08:44)
[2017-10-23] MEDS: OMEPRAZOLE 20 MG CAP PO (08:45)
[2017-10-23] MEDS: SOLIFENACIN 5 MG TAB PO (08:45)
[2017-10-23] MEDS: traMADol 50 MG TAB PO (20:20)
[2017-10-24] MEDS: OMEPRAZOLE 20 MG CAP PO (08:28)
[2017-10-24] MEDS: SOLIFENACIN 5 MG TAB PO (08:28)
[2017-10-24] MEDS: ENOXAPARIN 40 MG/0.4 ML SYRINGE (J1650) SC (08:29)
== END 2017-10-24 12:30 | disposition home or self-care (01) | DRG 561 ==
LOC: M PM&R 14:15
PROC: 30233N1 Transfusion of Nonautologous Red Blood Cells into Peripheral Vein, Percutaneous Approach (ICD-10-PCS; principal; 2017-10-20)
DX: S72.141D Displaced intertrochanteric fracture of right femur, subsequent encounter for closed fracture with routine healing (principal); K21.9 Gastro-esophageal reflux disease without esophagitis; J44.9 Chronic obstructive pulmonary disease, unspecified; E78.5 Hyperlipidemia, unspecified; I10 Essential (primary) hypertension; L82.1 Other seborrheic keratosis; G43.909 Migraine, unspecified, not intractable, without status migrainosus; M19.90 Unspecified osteoarthritis, unspecified site; Z88.5 Allergy status to narcotic agent; Z79.899 Other long term (current) drug therapy; Z88.0 Allergy status to penicillin; Z88.2 Allergy status to sulfonamides; Z88.8 Allergy status to other drugs, medicaments and biological substances; Z87.891 Personal history of nicotine dependence; I25.10 Atherosclerotic heart disease of native coronary artery without angina pectoris; Z86.73 Personal history of transient ischemic attack (TIA), and cerebral infarction without residual deficits; J32.9 Chronic sinusitis, unspecified; W00.0XXD Fall on same level due to ice and snow, subsequent encounter; Y92.009 Unspecified place in unspecified non-institutional (private) residence as the place of occurrence of the external cause; I70.209 Unspecified atherosclerosis of native arteries of extremities, unspecified extremity; I25.2 Old myocardial infarction; I73.00 Raynaud's syndrome without gangrene; K59.00 Constipation, unspecified; D64.9 Anemia, unspecified

== ENCOUNTER → 2018-01-13 | Outpatient (CLI) | payer MEDICARE, MEDICAID | LOC: M PAIN 08:30 | DX: G89.29 Other chronic pain (principal); M54.2 Cervicalgia; J44.9 Chronic obstructive pulmonary disease, unspecified; K21.9 Gastro-esophageal reflux disease without esophagitis; M85.80 Other specified disorders of bone density and structure, unspecified site; E78.5 Hyperlipidemia, unspecified; R73.01 Impaired fasting glucose; J30.9 Allergic rhinitis, unspecified; M51.36 Other intervertebral disc degeneration, lumbar region; M51.34 Other intervertebral disc degeneration, thoracic region; G43.009 Migraine without aura, not intractable, without status migrainosus; J32.9 Chronic sinusitis, unspecified; I73.00 Raynaud's syndrome without gangrene; M50.31 Other cervical disc degeneration, high cervical region; M50.321 Other cervical disc degeneration at C4-C5 level; M50.322 Other cervical disc degeneration at C5-C6 level; Z79.82 Long term (current) use of aspirin; Z79.899 Other long term (current) drug therapy; Z91.041 Radiographic dye allergy status; Z88.2 Allergy status to sulfonamides; Z88.0 Allergy status to penicillin; Z88.1 Allergy status to other antibiotic agents; Z88.8 Allergy status to other drugs, medicaments and biological substances | CPT/HCPCS: G0463 ==

== ENCOUNTER → 2018-01-17 | Outpatient (REF) | payer MEDICARE, MEDICAID ==
[2018-01-17 15:43] LABS: BASO # 0.1 10^3/uL (0.0-0.2); BASO % 0.8 % (0.0-1.0); EOS # 0.1 10^3/uL (0.0-0.50); EOS % 2.1 % (0.0-3.0); HEMATOCRIT 41.8 % (36.0-47.0); HEMOGLOBIN 13.2 g/dl (12.0-15.5); IMMATURE GRANULOCYTE % 0.2 % (0-3.0); LYMPH # 2.4 10^3/uL (1.5-4.5); LYMPH % 39.6 % (24.0-44.0); MEAN CORPUSCULAR HEMOGLOBIN 27.7 pg (27.0-33.0); MEAN CORPUSCULAR HGB CONC 31.6 g/dl (32.0-36.5); MEAN CORPUSCULAR VOLUME 87.6 fl (80.0-96.0); MONO # 0.5 10^3/uL (0.0-0.8); MONO % 7.6 % (0.0-5.0); NEUTROPHILS # 3.1 10^3/uL (1.8-7.7); NEUTROPHILS % 49.7 % (36.0-66.0); PLATELET COUNT, AUTOMATED 341 10^3/uL (150-450); RED BLOOD COUNT 4.77 10^6/uL (4.00-5.40); RED CELL DISTRIBUTION WIDTH 14.1 % (11.5-14.5); RETICULOCYTE # 20.5 10^9/L (17-77); RETICULOCYTE % 0.4 % (0.5-1.5); WHITE BLOOD COUNT 6.2 10^3/uL (4.0-10.0)
[2018-01-17 16:02] LABS: PTH INTACT 68.6 PG/ML (18.5-88.0); TOTAL 25(OH) VITAMIN D 44.2 NG/ML (30.0-100.0); VITAMIN B12 LEVEL 509 PG/ML (247-911)
[2018-01-17 16:04] LABS: ALBUMIN 3.9 GM/DL (3.2-5.2); ALBUMIN/GLOBULIN RATIO 1.26 (1.00-1.93); ALKALINE PHOSPHATASE 75 U/L (45-117); ALT/SGPT 13 U/L (12-78); ANION GAP 8 MEQ/L (8-16); AST/SGOT 14 U/L (7-37); BILIRUBIN,TOTAL 0.4 MG/DL (0.2-1.0); BLOOD UREA NITROGEN 7 MG/DL (7-18); C REACTIVE PROTEIN QUANTITATIV < 0.30 MG/DL (0.00-0.30); CALCIUM LEVEL 8.9 MG/DL (8.8-10.2); CARBON DIOXIDE LEVEL 29 MEQ/L (21-32); CHLORIDE LEVEL 105 MEQ/L (98-107); CHOLESTEROL LEVEL 158 MG/DL (<200); CHOLESTEROL RISK RATIO 2.872 (<5); CREATININE FOR GFR 0.71 MG/DL (0.55-1.30); ESTIMATED AVERAGE GLUCOSE 117 MG/DL (60-110); FERRITIN 32 NG/ML (8-252); GLOMERULAR FILTRATION RATE > 60.0 (>39); GLUCOSE, FASTING 76 MG/DL (70-100); HDL CHOLESTEROL 55 MG/DL (>40); HEMOGLOBIN A1c 5.7 %; IRON (FE) 69 UG/DL (50-170); LDL CHOLESTEROL 87.8 MG/DL (<100); LIPASE 205 U/L (73-393); NON-HDL-C 103 MG/DL; PERCENT SATURATION 25.7 % (13.2-45.0); POTASSIUM SERUM 3.5 MEQ/L (3.5-5.1); SODIUM LEVEL 142 MEQ/L (136-145); THYROID STIMULATING HORMONE 0.959 uIU/ML (0.358-3.740); TOTAL IRON BINDING CAPACITY 269 UG/DL (250-450); TRIGLYCERIDES LEVEL 76 MG/DL (<150)
[2018-01-17 16:27] LABS: ERYTHROCYTE SEDIMENTATION RATE 6 mm/hr (0-30)
[2018-01-19 14:14] LABS: H PYLORI SERUM QUANT IgG ABY 0.36 (0.00-0.79)
== END ==
LOC: M SFHCPLAZ 13:02
DX: R13.10 Dysphagia, unspecified (principal); E55.9 Vitamin D deficiency, unspecified; R73.01 Impaired fasting glucose; E78.2 Mixed hyperlipidemia; D50.1 Sideropenic dysphagia
CPT/HCPCS: 83550

== ENCOUNTER → 2018-01-26 | Outpatient (REF) | payer MEDICARE, MEDICAID ==
[2018-02-05 14:11] LABS: ACETYLCHOLINE RCPTOR BLOCK AB 44 % (0-25); ACETYLCHOLINE RCPTOR MODULATIN 55 % (0-20); ANTI-SMOOTH MUSCLE ANTIBODY 6 Units (0-19); STRIATIONAL ANTIBODIES Negative (Neg:<1:40)
== END ==
LOC: M SFHCPLAZ 13:11
DX: R13.10 Dysphagia, unspecified (principal)
CPT/HCPCS: 86255

== ENCOUNTER → 2018-02-01 | Outpatient (CLI) | payer MEDICARE, MEDICAID | LOC: M RAD 12:45 | DX: Z86.73 Personal history of transient ischemic attack (TIA), and cerebral infarction without residual deficits (principal); R63.4 Abnormal weight loss; E13.10 Other specified diabetes mellitus with ketoacidosis without coma | CPT/HCPCS: 70551 ==

== ENCOUNTER → 2018-02-03 | Outpatient (CLI) | payer MEDICARE, MEDICAID | LOC: M RAD 13:01 | DX: R13.10 Dysphagia, unspecified (principal); R63.4 Abnormal weight loss | CPT/HCPCS: 71250 ==

== ENCOUNTER → 2018-03-20 | Outpatient (REF) | payer MEDICARE, MEDICAID ==
[2018-03-20 15:59] LABS: BASO # 0.1 10^3/uL (0.0-0.2); BASO % 0.7 % (0.0-1.0); EOS # 0.2 10^3/uL (0.0-0.50); EOS % 2.5 % (0.0-3.0); HEMATOCRIT 39.1 % (36.0-47.0); HEMOGLOBIN 12.4 g/dl (12.0-15.5); IMMATURE GRANULOCYTE % 0.1 % (0-3.0); LYMPH # 2.7 10^3/uL (1.5-4.5); LYMPH % 40.3 % (24.0-44.0); MEAN CORPUSCULAR HGB CONC 31.7 g/dl (32.0-36.5); MEAN CORPUSCULAR VOLUME 88.3 fl (80.0-96.0); MONO # 0.7 10^3/uL (0.0-0.8); MONO % 9.9 % (0.0-5.0); NEUTROPHILS # 3.1 10^3/uL (1.8-7.7); NEUTROPHILS % 46.5 % (36.0-66.0); PLATELET COUNT, AUTOMATED 368 10^3/uL (150-450); RED BLOOD COUNT 4.43 10^6/uL (4.00-5.40); RED CELL DISTRIBUTION WIDTH 15.5 % (11.5-14.5); WHITE BLOOD COUNT 6.7 10^3/uL (4.0-10.0)
[2018-03-20 16:10] LABS: ALBUMIN 3.9 GM/DL (3.2-5.2); ALBUMIN/GLOBULIN RATIO 1.26 (1.00-1.93); ALKALINE PHOSPHATASE 75 U/L (45-117); ALT/SGPT 19 U/L (12-78); ANION GAP 6 MEQ/L (8-16); AST/SGOT 14 U/L (7-37); BILIRUBIN,TOTAL 0.6 MG/DL (0.2-1.0); BLOOD UREA NITROGEN 14 MG/DL (7-18); C REACTIVE PROTEIN QUANTITATIV < 0.30 MG/DL (0.00-0.30); CARBON DIOXIDE LEVEL 31 MEQ/L (21-32); CHLORIDE LEVEL 106 MEQ/L (98-107); CREATININE FOR GFR 0.82 MG/DL (0.55-1.30); GLOMERULAR FILTRATION RATE > 60.0 (>39); GLUCOSE, FASTING 79 MG/DL (70-100); MAGNESIUM LEVEL 2.3 MG/DL (1.8-2.4); SODIUM LEVEL 143 MEQ/L (136-145)
[2018-03-20 16:11] LABS: ESTIMATED AVERAGE GLUCOSE 117 MG/DL (60-110); HEMOGLOBIN A1c 5.7 %
== END ==
LOC: M SFHCPLAZ 12:58
DX: R73.01 Impaired fasting glucose (principal); D50.9 Iron deficiency anemia, unspecified; R63.4 Abnormal weight loss
CPT/HCPCS: 83735

== ENCOUNTER → 2018-08-29 | Outpatient (REF) | payer MEDICARE, MEDICAID ==
[2018-08-29 11:58] LABS: BASO % 0.6 % (0.0-1.0); EOS # 0.3 10^3/uL (0.0-0.50); EOS % 4.7 % (0.0-3.0); HEMATOCRIT 41.5 % (36.0-47.0); HEMOGLOBIN 12.9 g/dl (12.0-15.5); IMMATURE GRANULOCYTE % 0.3 % (0-3.0); LYMPH # 2.3 10^3/uL (1.5-4.5); LYMPH % 35.7 % (24.0-44.0); MEAN CORPUSCULAR HEMOGLOBIN 28.3 pg (27.0-33.0); MEAN CORPUSCULAR HGB CONC 31.1 g/dl (32.0-36.5); MONO # 0.5 10^3/uL (0.0-0.8); MONO % 7.9 % (0.0-5.0); NEUTROPHILS # 3.3 10^3/uL (1.8-7.7); NEUTROPHILS % 50.8 % (36.0-66.0); PLATELET COUNT, AUTOMATED 372 10^3/uL (150-450); RED BLOOD COUNT 4.56 10^6/uL (4.00-5.40); WHITE BLOOD COUNT 6.4 10^3/uL (4.0-10.0)
[2018-08-29 12:18] LABS: INR 0.94; PROTHROMBIN TIME 12.7 SECONDS (12.1-14.4)
[2018-08-29 12:27] LABS: ESTIMATED AVERAGE GLUCOSE 123 MG/DL (60-110); HEMOGLOBIN A1c 5.9 %
[2018-08-29 12:35] LABS: ALBUMIN 3.7 GM/DL (3.2-5.2); ALBUMIN/GLOBULIN RATIO 1.23 (1.00-1.93); ALKALINE PHOSPHATASE 74 U/L (45-117); ALT/SGPT 22 U/L (12-78); ANION GAP 7 MEQ/L (8-16); AST/SGOT 15 U/L (7-37); BILIRUBIN,TOTAL 0.3 MG/DL (0.2-1.0); BLOOD UREA NITROGEN 15 MG/DL (7-18); CALCIUM LEVEL 8.7 MG/DL (8.8-10.2); CARBON DIOXIDE LEVEL 29 MEQ/L (21-32); CHLORIDE LEVEL 107 MEQ/L (98-107); CREATININE FOR GFR 0.74 MG/DL (0.55-1.30); GLOMERULAR FILTRATION RATE > 60.0 (>32); GLUCOSE, FASTING 89 MG/DL (70-100); POTASSIUM SERUM 4.7 MEQ/L (3.5-5.1); SODIUM LEVEL 143 MEQ/L (136-145); TOTAL PROTEIN 6.7 GM/DL (6.4-8.2)
[2018-08-29 12:36] LABS: PTH INTACT 59.1 PG/ML (18.5-88.0)
== END ==
LOC: M SFHCPLAZ 09:33
DX: G70.00 Myasthenia gravis without (acute) exacerbation (principal); R73.01 Impaired fasting glucose; E55.9 Vitamin D deficiency, unspecified; Z79.01 Long term (current) use of anticoagulants
CPT/HCPCS: 80053

== ENCOUNTER 2019-01-12 14:54 | Emergency (ER) | payer MEDICARE, MEDICAID ==
[~2019-01-12] VITALS: Ht 167.6 cm; Wt 57.7 kg
[~2019-01-12 14:54] MED LIST changes: +ACET1TAB55 PO; +ASPI81TA45 OR; -BISACODYL 5 MG TAB PO; +CALCTAB22 OR; +DRIS50003 PO; -FLEET ENEMA PR; -MIRALAX *UNIT DOSE* 17GM PACKET PO; -MOM 30ML SUSPENSION UDC PO; +NEXI1CAP3 PO; +RECL5INJ2 IV; +SUCR1TAB56 OR; +TRAM50TA2 PO; +TYLE167L PO; +VESI5TAB2 PO; +XARE10TA PO
[2019-01-12 17:58] VITALS: BP 142/63
== END 2019-01-12 17:59 | disposition home or self-care (01) ==
LOC: M ED 14:54
DX: M62.838 Other muscle spasm (principal); Z79.02 Long term (current) use of antithrombotics/antiplatelets; Z79.899 Other long term (current) drug therapy; Z88.0 Allergy status to penicillin; Z88.2 Allergy status to sulfonamides; Z88.8 Allergy status to other drugs, medicaments and biological substances; Z91.041 Radiographic dye allergy status

== ENCOUNTER 2019-01-28 11:35 | Inpatient (IN) | payer MEDICARE, MEDICAID ==
[2019-01-28] VITALS (7 sets, daily range): BP systolic 124–160; BP diastolic 61–70
[~2019-01-28] VITALS: Ht 170.2 cm; Wt 54.1 kg
[2019-01-28] MEDS ORDERED: CALCCAP4 PO (11:58)
[2019-01-28] MEDS ORDERED: PYRI60TA2 PO (11:58)
[2019-01-28] MEDS ORDERED: ASPI81TA85 PO (11:58)
[2019-01-28] MEDS ORDERED: NS 500 ML IV ONE (12:30)
[2019-01-28 13:02] LABS: BASO % 0.4 % (0.0-1.0); EOS # 0.1 10^3/uL (0.0-0.50); EOS % 0.8 % (0.0-3.0); HEMOGLOBIN 12.3 g/dl (12.0-15.5); LYMPH # 1.9 10^3/uL (1.5-4.5); LYMPH % 25.5 % (24.0-44.0); MEAN CORPUSCULAR HEMOGLOBIN 26.4 pg (27.0-33.0); MEAN CORPUSCULAR HGB CONC 30.8 g/dl (32.0-36.5); MEAN CORPUSCULAR VOLUME 85.8 fl (80.0-96.0); MONO # 0.7 10^3/uL (0.0-0.8); NEUTROPHILS # 4.7 10^3/uL (1.8-7.7); PLATELET COUNT, AUTOMATED 427 10^3/uL (150-450); RED BLOOD COUNT 4.66 10^6/uL (4.00-5.40); WHITE BLOOD COUNT 7.4 10^3/uL (4.0-10.0)
[2019-01-28 13:18] LABS: ALBUMIN 3.8 GM/DL (3.2-5.2); ALT/SGPT 19 U/L (12-78); BILIRUBIN,DIRECT < 0.1 MG/DL (0.0-0.2); BILIRUBIN,TOTAL 0.4 MG/DL (0.2-1.0); BLOOD UREA NITROGEN 9 MG/DL (7-18); CALCIUM LEVEL 9.1 MG/DL (8.8-10.2); CARBON DIOXIDE LEVEL 28 MEQ/L (21-32); CHLORIDE LEVEL 107 MEQ/L (98-107); CREATININE FOR GFR 0.77 MG/DL (0.55-1.30); GLOMERULAR FILTRATION RATE > 60.0 (>32); GLUCOSE, FASTING 92 MG/DL (70-100); MAGNESIUM LEVEL 2.1 MG/DL (1.8-2.4); POTASSIUM SERUM 4.2 MEQ/L (3.5-5.1); SODIUM LEVEL 142 MEQ/L (136-145); TOTAL PROTEIN 7.3 GM/DL (6.4-8.2)
--- NOTE | 2019-01-28 13:53 | REP ---
CHEST X-RAY: TWO VIEWS. HISTORY: Abdomen pain. FINDINGS: The lungs are well inflated and clear. The pleural angles are sharp. Heart size is normal. EKG electrodes are seen. Pulmonary vasculature is not increased. There are mild degenerative changes in the thoracic spine. IMPRESSION: No active disease. Electronically Signed by Davin Lemus MD 01/28/2019 02:46 P
[2019-01-28] MEDS ORDERED: ACET-897 PO (14:04)
[2019-01-28] MEDS ORDERED: NEXI40CA PO (14:04)
[2019-01-28] MEDS: IMMUNE GLOBULIN 10% 20 GM in APPROPRIATE DILUENT 1 EA IV SCH ×2 (14:46→15:50)
[2019-01-28] MEDS: D5W/0.9% SODIUM CHLORIDE 1,000 ML IV SCH (15:30)
[2019-01-28] MEDS ORDERED: PANTOPRAZOLE 40MG INJ (PROTONIX) (C9113) IV SCH (16:00)
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
[2019-01-28] MEDS: PYRIDOSTIGMINE 60 MG TAB PO SCH ×2 (19:22→20:40)
[2019-01-28] MEDS: ENOXAPARIN 40 MG/0.4 ML SYRINGE (J1650) SC SCH (20:41)
[2019-01-28] MEDS ORDERED: CHLORHEXIDINE GLUCONATE 0.12 % 15ML UDC (PERIDEX ORAL RINSE) MT SCH (21:00)
[2019-01-29] VITALS (11 sets, daily range): BP systolic 111–167; BP diastolic 54–71
[2019-01-29 05:53] LABS: BASO # 0.1 10^3/uL (0.0-0.2); BASO % 1.1 % (0.0-1.0); EOS # 0.2 10^3/uL (0.0-0.50); EOS % 4.5 % (0.0-3.0); HEMATOCRIT 36.2 % (36.0-47.0); HEMOGLOBIN 11.2 g/dl (12.0-15.5); LYMPH # 1.9 10^3/uL (1.5-4.5); LYMPH % 40.6 % (24.0-44.0); MEAN CORPUSCULAR HEMOGLOBIN 27.1 pg (27.0-33.0); MEAN CORPUSCULAR HGB CONC 30.9 g/dl (32.0-36.5); MEAN CORPUSCULAR VOLUME 87.7 fl (80.0-96.0); MONO # 0.4 10^3/uL (0.0-0.8); NEUTROPHILS # 2.1 10^3/uL (1.8-7.7); NEUTROPHILS % 44.6 % (36.0-66.0); PLATELET COUNT, AUTOMATED 331 10^3/uL (150-450); RED BLOOD COUNT 4.13 10^6/uL (4.00-5.40); WHITE BLOOD COUNT 4.7 10^3/uL (4.0-10.0)
[2019-01-29 06:30] LABS: ALT/SGPT 15 U/L (12-78); BILIRUBIN,TOTAL 0.4 MG/DL (0.2-1.0); BLOOD UREA NITROGEN 8 MG/DL (7-18); CALCIUM LEVEL 7.9 MG/DL (8.8-10.2); CARBON DIOXIDE LEVEL 28 MEQ/L (21-32); CHLORIDE LEVEL 113 MEQ/L (98-107); CREATININE FOR GFR 0.65 MG/DL (0.55-1.30); GLOMERULAR FILTRATION RATE > 60.0 (>32); GLUCOSE, FASTING 93 MG/DL (70-100); POTASSIUM SERUM 3.6 MEQ/L (3.5-5.1); SODIUM LEVEL 144 MEQ/L (136-145); TOTAL PROTEIN 6.7 GM/DL (6.4-8.2)
--- NOTE | 2019-01-29 07:47 | IPNPDOC ---
Subjective Date Seen The patient was seen on 01/29/19. Subjective Chief Complaint/HPI Admitted for myasthenia gravis. Events since last encounter Myasthenia gravis flare. Admitted weakness. Patient denies change in dysphagia. Neuro consult placed. Immune globulin ordered daily x 5 days. Patient admits to weakness. Remains NPO with IVF infusing. Constitutional: Denies: Chills, Fever, Night Sweats Pulmonary: Denies: Dyspnea, Cough Cardiovascular: Denies: Chest Pain, Palpitations, Orthopnea, Paroxysmal Noc. Dyspnea, Lt Headedness Gastrointestinal: Denies: Nausea, Vomiting, Abdominal Pain, Diarrhea, Constipation Psych: Reports: Mood Normal; Denies: Depression, Memory Issues Objective Physical Examination General Exam: Positive: Alert, No Acute Distress Neck Exam: Positive: Supple; Negative: JVD, thyromegaly Chest Exam: Positive: Clear to auscultation, Normal air movement Heart Exam: Positive: Rate Normal, Regular Rhythm, Normal S1, Normal S2; Negative: Murmurs, Rubs Telemetry: Positive: No significant arrhythmia Abdomen Exam: Positive: Normal bowel sounds, Soft; Negative: Tenderness, Hepatospenomegaly Extremity Exam: Positive: Normal pulses; Negative: Clubbing, Cyanosis, Edema Neuro Exam: Positive: Normal Speech, Other Psych Exam: Positive: Mental status NL Other physical findings generalized weakness noted. A-FIB/CHADSVASC A-FIB History Current/History of A-Fib/PAF?: No Current Oral Anticoagulant The: No Assessment /Plan Problems (1) Myasthenia exacerbation Status: Acute Problem Specific Plan: Consult Specialist Problem Text: Appreciate Neuro consult. Continue with Immunoglobulin. (2) Raynauds disease Status: Chronic Response to Treatment: Stable (3) GERD (gastroesophageal reflux disease) Status: Chronic Response to Treatment: Stable Problem Text: IV protonix ordered (4) CAD (coronary artery disease) Status: Chronic Response to Treatment: Stable Problem Text: currently on aspirin. Plan/VTE VTE Prophylaxis Ordered?: Yes Plan Family Medicine Attending Note: I saw and examined Ms. Little, discussed with MAYNOR Apodaca. Agree with her note as documented. The patient is making improvements throughout the day. Her NIF is down to -20. She was able to advance her diet to mechanical soft by working with speech pathology again. We confirmed at the pharmacy will have enough doses to give her a full treatment of IVIG. I spoke with Dr. Mejia of neurology. I shared with him what I was able to find on her eCW chart; specifically that we had tested and she had all 3 types of acetylcholinesterase receptor antibody/dysfunction. She did not have the MuSK or striated muscle antibodies. She also had been screened for thymoma with a CT of the chest which was negative. All of this is on the record from January 2018. She had been treated with Mestinon only as far as I am able to tell. He carefully explained to me why symptomatic treatment (Mestinon) must go along with disease guided treatment (CellCept, methotrexate, prednisone). Each of these certainly comes with the symptoms of side effects. He recommended starting CellCept 500 mg by mouth twice a day for at least 2 weeks. At that point may be intensified to 1000 mg twice a day if she is able to tolerate it. I did start this medication today. 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) VS, I&O, 24H, Fishbone Vital Signs/I&O Vital Signs Date Time Temp Pulse Resp B/P (MAP) Pulse Ox O2 Delivery O2 Flow Rate FiO2 01/29/19 04:00 98.1 69 19 140/61 (87) 98 01/28/19 11:36 Room Air I&O- Last 24 Hours up to 6 AM 01/29/19 06:00 Intake Total 910 ml Output Total 600 ml Balance 310 ml Laboratory Data 24H LABS Laboratory Tests 2 01/28/19 12:42: Immature Granulocyte % (Auto) 0.3, White Blood Count 7.4, Red Blood Count 4.66, Hemoglobin 12.3, Hematocrit 40.0, Mean Corpuscular Volume 85.8, Mean Corpuscular Hemoglobin 26.4L, Mean Corpuscular Hemoglobin Concent 30.8L, Red Cell Distribution Width 13.7, Platelet Count 427, Neutrophils (%) (Auto) 64.0, Lymphocytes (%) (Auto) 25.5, Monocytes (%) (Auto) 9.0H, Eosinophils (%) (Auto) 0.8, Basophils (%) (Auto) 0.4, Neutrophils # (Auto) 4.7, Lymphocytes # (Auto) 1.9, Monocytes # (Auto) 0.7, Eosinophils # (Auto) 0.1, Basophils # (Auto) 0.0, Nucleated Red Blood Cells % (auto) 0.0, Anion Gap 7L, Glomerular Filtration Rate > 60.0, Calcium Level 9.1, Magnesium Level 2.1, Aspartate Amino Transf ( AST/SGOT) 15, Alanine Aminotransferase (ALT/SGPT) 19, Alkaline Phosphatase 93, Total Bilirubin 0.4, Direct Bilirubin < 0.1, Total Protein 7.3, Albumin 3.8, Albumin/Globulin Ratio 1.09 01/29/19 05:42: Immature Granulocyte % (Auto) 0.2, White Blood Count 4.7, Red Blood Count 4.13, Hemoglobin 11.2L, Hematocrit 36.2, Mean Corpuscular Volume 87.7, Mean Corpuscular Hemoglobin 27.1, Mean Corpuscular Hemoglobin Concent 30.9L, Red Cell Distribution Width 13.5, Platelet Count 331, Neutrophils (%) (Auto) 44.6, Lymphocytes (%) (Auto) 40.6, Monocytes (%) (Auto) 9.0H, Eosinophils (%) (Auto) 4.5H, Basophils (%) (Auto) 1.1H, Neutrophils # (Auto) 2.1, Lymphocytes # (Auto) 1.9, Monocytes # (Auto) 0.4, Eosinophils # (Auto) 0.2, Basophils # (Auto) 0.1, Nucleated Red Blood Cells % (auto) 0.0, Anion Gap 3L, Glomerular Filtration Rate > 60.0, Calcium Level 7.9L, Magnesium Level 2.0, Aspartate Amino Transf (AST/SGOT) 15, Alanine Aminotransferase (ALT/SGPT) 15, Alkaline Phosphatase 73, Total Bilirubin 0.4, Total Protein 6.7, Albumin 3.0#L, Albumin/Globulin Ratio 0.81L, Blood Urea Nitrogen 8, Creatinine 0.65, Sodium Level 144, Potassium Level 3.6, Chloride Level 113H, Carbon Dioxide Level 28 CBC/BMP Laboratory Tests 01/28/19 12:42 Red Blood Count 4.66, Mean Corpuscular Volume 85.8, Mean Corpuscular Hemoglobin 26.4 L, Mean Corpuscular Hemoglobin Concent 30.8 L, Red Cell Distribution Width 13.7, Neutrophils (%) (Auto) 64.0, Lymphocytes (%) (Auto) 25.5, Monocytes (%) (Auto) 9.0 H, Eosinophils (%) (Auto) 0.8, Basophils (%) (Auto) 0.4, Neutrophils # (Auto) 4.7, Lymphocytes # (Auto) 1.9, Monocytes # (Auto) 0.7, Eosinophils # (Auto) 0.1, Basophils # (Auto) 0.0 01/29/19 05:42 Red Blood Count 4.13, Mean Corpuscular Volume 87.7, Mean Corpuscular Hemoglobin 27.1, Mean Corpuscular Hemoglobin Concent 30.9 L, Red Cell Distribution Width 13.5, Neutrophils (%) (Auto) 44.6, Lymphocytes (%) (Auto) 40.6, Monocytes (%) (Auto) 9.0 H, Eosinophils (%) (Auto) 4.5 H, Basophils (%) (Auto) 1.1 H, Neutrophils # (Auto) 2.1, Lymphocytes # (Auto) 1.9, Monocytes # (Auto) 0.4, Eosinophils # (Auto) 0.2, Basophils # (Auto) 0.1, Calcium Level 7.9 L, Aspartate Amino Transf (AST/SGOT) 15, Alanine Aminotransferase (ALT/SGPT) 15, Alkaline Phosphatase 73, Total Bilirubin 0.4, Total Protein 6.7, Albumin 3.0 #L Microbiology Microbiology 01/28/19 MRSA Screen, Received Pending Mary George January 29, 2019 7:47 am Hubert Anderson MD January 29, 2019 11:34 pm
--- NOTE | 2019-01-29 08:52 | CR ---
DATE OF CONSULTATION: 01/29/2019 REFERRING PROVIDER: Dr. Jaime Guy. REASON FOR CONSULTATION: Emergency evaluation and management for acute myasthenia gravis exacerbation. HISTORY OF PRESENT ILLNESS: Marisol Eric is an 78-year-old female who was diagnosed with IV gravis approximately 1 year ago who became symptomatic with ptosis diplopia, dysarthria approximately a year and a half ago. The patient has been on Mestinon therapy without any supportive immunotherapy for the past year. The patient has had progressive dysphagia throughout the morning. She has been feeling a little bit weak over the last couple days. She does complain of some drooping of the eyelids. The patient has been admitted to [facility]. Her NIF was reported to be low at -15. The patient had so far is breathing well on room air. She does not appear to be any respiratory distress. She has been started on IVIG 20 grams per day for 5 days for the treatment of her myasthenia exacerbation. The patient and her son were both explained that she probably treatment myasthenia gravis Mestinon will likely take away some of the acute symptoms but will not treat the underlying neurological attack on the neuromuscular junction. The patient would benefit from starting medications such as CellCept, methotrexate or prednisone for long-term care. The patient has discussed these options with the primary care team. Dr. Jaime Guy and Dr. Wali Ramsey primary care provider. At the present time the patient feels fairly well. She is able to swallow fairly well at bedside. She did not choke on any with the provided to her by the nursing staff. The patient has a sip of water and swallowed it without complication. PAST MEDICAL HISTORY: Myasthenia gravis unclear which antibodies are positive. Unclear if the patient has been ruled out for thymoma. Urinary tract infection next. Keratosis. Gastroesophageal reflux disease. COPD. Migraine headaches. Hyperlipidemia. Hypertension. History of right sided hemispheric TIA with left-sided symptoms. Allergic rhinitis. Sinusitis. Degenerative joint disease. Partial right supraspinatus tear. Raynaud's phenomenon. PAST SURGICAL HISTORY: Left hip fracture status post open reduction internal fixation, right rotator cuff repair arthroscopy, for gastritis several hernia evaluation. Dermatologic biopsies cholecystectomy in showing diverticulosis, hysterectomy, appendectomy. ALLERGIES: Histamines, diphenhydramine, cephalosporin, clarithromycin, codeine, contrast media, estrogens, famotidine, lidocaine, penicillin, penicillin cross reactors, procaine, quinolones, sulfa, tetracycline, sulfa drugs and cross reactors. MEDICATIONS: Aspirin 81 mg daily, Protonix 40 mg daily, Lovenox 40 mg subcu daily for DVT prophylaxis, Mestinon 60 mg by mouth three times a day, IVIG 20 grams per day. PHYSICAL EXAMINATION: Blood pressure is 132/71, pulse rate 69, respiratory rate is 18, temperature is 97.2 degrees Fahrenheit, oxygenation 96% on room air. Current height 5 feet 7 inches, current weight is 55 kg. The patient is awake, alert, oriented to person, place and time. Speech, repetition are intact. Pupils are 2.5 mm round, reactive to light. Extraocular movements are intact in all directions and end gaze diplopia is noted with fatigue involving the right end gaze, mild ptosis is noted bilateral eyelids there is some bulbar weakness in extension of air within her cheeks, tongue appears midline. The patient is able to whistle there is no pronator drift. Sensation V1, V2-V3 is intact to light touch. There is no facial asymmetry activation. Hearing is subjectively equal to finger rub. Next there is no pronator drift. Strength is appears to be 5/5 in the bilateral deltoids, biceps, triceps, handgrip, iliopsoas, quadriceps, anterior tibialis at this time. Sensory is intact to light touch in all four extremities. Deep tendon reflexes are twos throughout this Achilles reflexes. Coordination: Normal [id number] without any signs of gross ataxia or dysmetria. Gait deferred. ASSESSMENT: 1. Suspected acute exacerbation of myasthenia gravis. PLAN: 1. Recommend monitoring of the NIF every 8 hours. Continue IVIG 20 grams daily for 5 days. PT/OT evaluation. 2. Recommend long-term immunosuppression with either CellCept methotrexate or prednisone. Recommend confirming whether the patient has been ruled out for thymoma recommend confirm presence of receptor antibodies. 3. Continue pyridostigmine 60 mg by mouth three times a day. History obtained from both the patient the patient's son. The patient to follow up in the [facility] in 4-6 weeks after discharge.
[2019-01-29] MEDS: ASPIRIN 81 MG ENTERIC TAB PO SCH (09:57)
[2019-01-29] MEDS: PANTOPRAZOLE 40MG INJ (PROTONIX) (C9113) IV SCH (09:57)
[2019-01-29] MEDS: PYRIDOSTIGMINE 60 MG TAB PO SCH ×3 (09:57→20:02)
[2019-01-29] MEDS: D5W/0.9% SODIUM CHLORIDE 1,000 ML IV SCH ×2 (10:07→23:37)
--- NOTE | 2019-01-29 12:46 | NUR ---
Recommend pureed solids and thin liquids, medications administered crushed in puree assist, please provide Ensure supplements and calorie-dense food options, GERD management w/ Rx. Pt educated on following compensatory strategies: small bite/sip, alternate bite/sip, upright positioning during and 30min post-meal. Addendum: 01/29/[address] [facility] Amended: Links added.
[2019-01-29] MEDS: IMMUNE GLOBULIN 10% 20 GM in APPROPRIATE DILUENT 1 EA IV SCH (15:08)
--- NOTE | 2019-01-29 15:39 | NUR ---
Recommend upgrade to level 2 solids, continue thin liquids, provide Ensure supplements & high calorie food options, energy conservation needs. Addendum: 01/29/19 at [address] [facility] Amended: Links added.
[2019-01-29] MEDS: ENOXAPARIN 40 MG/0.4 ML SYRINGE (J1650) SC SCH (20:02)
[2019-01-29] MEDS: MYCOPHENOLATE MOFETIL 250 MG CAP (J7517) PO SCH (20:34)
[2019-01-30] VITALS (9 sets, daily range): BP systolic 123–153; BP diastolic 59–72
[2019-01-30] MEDS: PYRIDOSTIGMINE 60 MG TAB PO SCH ×3 (08:10→20:12)
[2019-01-30] MEDS: ASPIRIN 81 MG ENTERIC TAB PO SCH (08:10)
[2019-01-30] MEDS: PANTOPRAZOLE 40MG INJ (PROTONIX) (C9113) IV SCH (08:10)
[2019-01-30] MEDS: MYCOPHENOLATE MOFETIL 250 MG CAP (J7517) PO SCH ×2 (08:10→20:13)
--- NOTE | 2019-01-30 09:15 | IPNPDOC ---
Subjective Date Seen The patient was seen on 01/30/19. Subjective Chief Complaint/HPI Patient reports to be feeling better each day. She states she is still weak. She moved her bowels this morning Constitutional: Denies: Chills, Fever Pulmonary: Denies: Dyspnea, Cough Cardiovascular: Denies: Chest Pain, Palpitations, Orthopnea, Edema Gastrointestinal: Denies: Nausea, Vomiting, Abdominal Pain Psych: Reports: Mood Normal Objective Physical Examination General Exam: Positive: Alert, Cooperative, No Acute Distress Neck Exam: Positive: Supple; Negative: JVD, thyromegaly Chest Exam: Positive: Clear to auscultation, Normal air movement Heart Exam: Positive: Rate Normal, Regular Rhythm, Normal S1, Normal S2; Negative: Murmurs, Rubs Telemetry: Positive: No significant arrhythmia Abdomen Exam: Positive: Normal bowel sounds, Soft; Negative: Tenderness, Hepatospenomegaly Extremity Exam: Positive: Normal pulses; Negative: Clubbing, Cyanosis, Edema Neuro Exam: Positive: Normal Speech, Other Psych Exam: Positive: Mental status NL A-FIB/CHADSVASC A-FIB History Current/History of A-Fib/PAF?: No Assessment /Plan Problems (1) Myasthenia exacerbation Status: Acute Problem Specific Plan: Consult Specialist Problem Text: 01/30/19: Neurology consulted. Recommendations below. Day #3 of IVIG. CellCept was started yesterday. PLAN: 1. Recommend monitoring of the NIF every 8 hours. Continue IVIG 20 grams daily for 5 days. PT/OT evaluation. 2. Recommend long-term immunosuppression with either CellCept methotrexate or prednisone. Recommend confirming whether the patient has been ruled out for thymoma recommend confirm presence of receptor antibodies. 3. Continue pyridostigmine 60 mg by mouth three times a day. History obtained from both the patient the patient's son. The patient to follow up in the [facility] in 4-6 weeks after discharge. Appreciate Neuro consult. Continue with Immunoglobulin. (2) Raynauds disease Status: Chronic Response to Treatment: Stable (3) GERD (gastroesophageal reflux disease) Status: Chronic Response to Treatment: Stable Problem Text: IV protonix ordered (4) CAD (coronary artery disease) Status: Chronic Response to Treatment: Stable Problem Text: currently on aspirin. Plan/VTE VTE Prophylaxis Ordered?: Yes (Lovenox ) Plan Family Medicine Attending Note: I saw and examined Ms. Little, discussed with Alyson Benites DNP. Agree with her note as documented. She seems to continue to make slow improvement. Despite this this evening her NIF dropped to -15. I suspect this is more effort related then a decompensation. None the less we need to monitor her closely to make sure that she isn't decompensating. 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
[2019-01-30] MEDS ORDERED: IMMUNE GLOBULIN 10% 20 GM in APPROPRIATE DILUENT 1 EA IV SCH (15:00)
[2019-01-30] MEDS: ENOXAPARIN 40 MG/0.4 ML SYRINGE (J1650) SC SCH (20:13)
[2019-01-31] VITALS: BP 168/74
[2019-01-31 04:00] VITALS: BP 140/70
[2019-01-31 08:00] VITALS: BP 130/67
[2019-01-31] MEDS: MYCOPHENOLATE MOFETIL 250 MG CAP (J7517) PO SCH ×2 (09:01→20:02)
[2019-01-31] MEDS: PYRIDOSTIGMINE 60 MG TAB PO SCH ×3 (09:01→20:03)
[2019-01-31] MEDS: PANTOPRAZOLE 40MG INJ (PROTONIX) (C9113) IV SCH (09:01)
[2019-01-31] MEDS: ASPIRIN 81 MG ENTERIC TAB PO SCH (09:01)
--- NOTE | 2019-01-31 09:19 | IPNPDOC ---
Subjective Date Seen The patient was seen on 01/31/19. Subjective Chief Complaint/HPI Patient reports to be feeling worse today. When questioned further, she stated she just generally doesn't feel as well today compared to yesterday. Per nursing patient has been having a little more difficulty with swallowing foods. She has been taking her oral medications without difficulty. Speech therapy continues to work with patient. Patient refused to see respiratory this morning because she was eating. NIF score yesterday -15 Constitutional: Reports: Weakness; Denies: Chills, Fever Pulmonary: Denies: Dyspnea, Cough, Pleuritic Chest Pain Cardiovascular: Denies: Chest Pain, Palpitations, Orthopnea, Edema Gastrointestinal: Denies: Nausea, Vomiting, Abdominal Pain, Constipation Genitourinary: Denies: Dysuria Objective Physical Examination General Exam: Positive: Alert, Cooperative, No Acute Distress Neck Exam: Positive: Supple; Negative: JVD, thyromegaly Chest Exam: Positive: Clear to auscultation, Normal air movement Heart Exam: Positive: Rate Normal, Regular Rhythm, Normal S1, Normal S2; Negative: Murmurs, Rubs Telemetry: Positive: No significant arrhythmia Abdomen Exam: Positive: Normal bowel sounds, Soft; Negative: Tenderness, Hepatospenomegaly Extremity Exam: Positive: Normal pulses; Negative: Clubbing, Cyanosis, Edema Neuro Exam: Positive: Normal Speech, Other Psych Exam: Positive: Mental status NL, Mood NL A-FIB/CHADSVASC A-FIB History Current/History of A-Fib/PAF?: No Assessment /Plan Problems (1) Myasthenia exacerbation Status: Acute Problem Specific Plan: Consult Specialist Problem Text: 01/31/19: Patient progressing slowly. Day #4 of IVIG. Remains on CellCept. We are awaiting NIF score to be <-25 to downgrade her status and move her out of ICU. PT continues to work with patient. Speech therapy continues to work with patient. She remains on a pureed/mechanical soft diet. We will need to continue to monitor 01/30/19: Neurology consulted. Recommendations below. Day #3 of IVIG. CellCept was started yesterday. PLAN: 1. Recommend monitoring of the NIF every 8 hours. Continue IVIG 20 grams daily for 5 days. PT/OT evaluation. 2. Recommend long-term immunosuppression with either CellCept methotrexate or prednisone. Recommend confirming whether the patient has been ruled out for thymoma recommend confirm presence of receptor antibodies. 3. Continue pyridostigmine 60 mg by mouth three times a day. History obtained from both the patient the patient's son. The patient to follow up in the [facility] in 4-6 weeks after discharge. Appreciate Neuro consult. Continue with Immunoglobulin. (2) Raynauds disease Status: Chronic Response to Treatment: Stable (3) GERD (gastroesophageal reflux disease) Status: Chronic Response to Treatment: Stable Problem Text: IV protonix ordered (4) CAD (coronary artery disease) Status: Chronic Response to Treatment: Stable Problem Text: currently on aspirin. Plan/VTE VTE Prophylaxis Ordered?: Yes (Lovenox ) Plan Family Medicine Attending Note: I saw and examined Ms. Little, discussed with Alyson Benites DNP. Agree with her note as documented. She has generally felt more weak and shaky today. Her negative inspiratory force dropped to as low as -12. She does not visibly seem to be decompensating, I am concerned about some of the signs she is given. She has one more day of IVIG left. We will need to monitor carefully. 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
[2019-01-31 12:00] VITALS: BP 120/62
[2019-01-31] MEDS ORDERED: VARIBAR PUDDING 40% w/v 230ML TUBE As Ordered ONE (12:04)
[2019-01-31] MEDS ORDERED: BARIUM SULFATE 700 MG TABLET (E-Z-DISK) As Ordered ONE (12:04)
[2019-01-31] MEDS ORDERED: VARIBAR NECTAR 40% w/v 240ML SUSP BTL As Ordered ONE (12:04)
[2019-01-31] MEDS ORDERED: E-Z-PAQUE 96% w/w SUSP 176GM BTL As Ordered ONE (12:04)
[2019-01-31 16:00] VITALS: BP 142/74
--- NOTE | 2019-01-31 16:26 | NUR ---
Recommend continue level 2 mechanically altered (NDD) solids and thin liquids, medications w/ puree assist. Recommend the following compensatory strategies: upright positioning w/ chin tuck, small bites/sips, small frequent meals, calorie-dense food options, do not eat when fatigued. Pt w/ moderate oropharyngeal phase dysphagia characterized by penetration and trace aspiration of thin liquids with unrestricted straw sips, premature spillage, and pharyngeal residues requiring multiple swallows and liquid wash to clear. Addendum: 01/31/19 at 1629 by [facility] Amended: Links added. Addendum: 01/31/19 at 1645 by DELGADO THOMPSON [facility] No straws
[2019-01-31] MEDS: IMMUNE GLOBULIN 10% 20GM 200ML 20 GM in APPROPRIATE DILUENT 1 EA IV SCH (16:32)
--- NOTE | 2019-01-31 16:38 | REP ---
Examination Requested: Cookie Swallow Reason For Exam: Dysphasia Upper GI Air Contrast The procedure was performed by ISATU Akers, under the direct supervision of Dr. Lemus. The procedure was performed with Venessa Varela from speech pathology present. 5 ml aliquots of thin, pudding, mixed fruit, soft food, and pill consistency barium was administered. Penetration was noted with thin liquids, penetration with aspiration was noted with thin liquid while drinking from a straw. Mixed fruit consistency demonstrated flash penetration, and a soft food consistencies demonstrated premature spill. The detailed report of this examination will be provided by speech pathology. 3.0 minutes of fluoroscopy time was utilized for this procedure. Reviewed by ISATU Scott 01/31/2019 04:14 P Electronically Signed by Davin Lemus MD 01/31/2019 04:29 P
[2019-01-31] MEDS ORDERED: ACETAMINOPHEN TAB 650MG DOSE (2X325MG) PO PRN (18:30)
[2019-01-31 20:00] VITALS: BP 146/73
[2019-01-31] MEDS: ENOXAPARIN 40 MG/0.4 ML SYRINGE (J1650) SC SCH (20:03)
[2019-02-01] VITALS: BP 136/74
[2019-02-01 04:00] VITALS: BP 130/79
[2019-02-01 05:17] LABS: HEMATOCRIT 39.1 % (36.0-47.0); MEAN CORPUSCULAR HEMOGLOBIN 26.8 pg (27.0-33.0); MEAN CORPUSCULAR HGB CONC 30.7 g/dl (32.0-36.5); MEAN CORPUSCULAR VOLUME 87.3 fl (80.0-96.0); PLATELET COUNT, AUTOMATED 312 10^3/uL (150-450); RED BLOOD COUNT 4.48 10^6/uL (4.00-5.40); WHITE BLOOD COUNT 3.9 10^3/uL (4.0-10.0)
[2019-02-01 05:41] LABS: ALBUMIN 3.1 GM/DL (3.2-5.2); ALT/SGPT 16 U/L (12-78); BILIRUBIN,TOTAL 0.3 MG/DL (0.2-1.0); BLOOD UREA NITROGEN 7 MG/DL (7-18); CALCIUM LEVEL 8.8 MG/DL (8.8-10.2); CARBON DIOXIDE LEVEL 30 MEQ/L (21-32); CHLORIDE LEVEL 108 MEQ/L (98-107); CREATININE FOR GFR 0.66 MG/DL (0.55-1.30); GLOMERULAR FILTRATION RATE > 60.0 (>32); GLUCOSE, FASTING 88 MG/DL (70-100); POTASSIUM SERUM 3.6 MEQ/L (3.5-5.1); SODIUM LEVEL 141 MEQ/L (136-145); TOTAL PROTEIN 8.4 GM/DL (6.4-8.2)
[2019-02-01 08:00] VITALS: BP 127/81
[2019-02-01] MEDS: ASPIRIN 81 MG ENTERIC TAB PO SCH (08:44)
[2019-02-01] MEDS: MYCOPHENOLATE MOFETIL 250 MG CAP (J7517) PO SCH ×2 (08:44→20:37)
[2019-02-01] MEDS: PYRIDOSTIGMINE 60 MG TAB PO SCH ×3 (08:44→20:37)
[2019-02-01] MEDS: PANTOPRAZOLE 40MG INJ (PROTONIX) (C9113) IV SCH (08:44)
--- NOTE | 2019-02-01 11:50 | NUR ---
Recommend downgrade to pureed solids for energy conservation. Continue thin liquids no straws with small sips and chin tuck. Recommend medications in pureed assist. Please provide small portions with calorie-dense food items and encourage snacks throughout the day. Please provide Ensure. Addendum: 02/01/[address] [facility] Amended: Links added.
[2019-02-01 12:00] VITALS: BP 116/67
[2019-02-01] MEDS: IMMUNE GLOBULIN 10% 20GM 200ML 20 GM in APPROPRIATE DILUENT 1 EA IV SCH (15:20)
[2019-02-01 16:00] VITALS: BP 117/66
--- NOTE | 2019-02-01 17:22 | IPNPDOC ---
Subjective Date Seen The patient was seen on 02/01/19. Subjective Chief Complaint/HPI Ms. Little reports that she feels a little stronger than she did yesterday, but she still not feeling great. She reports recurrence of her diplopia, and the nurses report she was requesting an eye patch. Speech pathology felt she might be fatiguing with the mechanical soft diet and found it necessary to reduce her to pureds. General: Reports: Normal Appetite Eyes: Reports: Vision change (diplopia in the afternoon) Pulmonary: Denies: Dyspnea, Cough Neurological: Reports: Weakness Psych: Reports: Mood Normal Objective Physical Examination General Exam: Positive: Alert, Cooperative (sitting up preparing to eat her dinner when I entered the room), No Acute Distress Eye Exam: Positive: Conjunctiva & lids normal, Ptosis (? L slightly greater than R); Negative: Sclera icteric ENT Exam: Positive: Mucous membr. moist/pink Neck Exam: Positive: Supple; Negative: JVD, thyromegaly, Lymphadenopathy Chest Exam: Positive: Clear to auscultation, Normal air movement Heart Exam: Positive: Rate Normal, Regular Rhythm, Normal S1, Normal S2 Telemetry: Positive: No significant arrhythmia Abdomen Exam: Positive: Normal bowel sounds, Soft; Negative: Tenderness, Hepatospenomegaly Extremity Exam: Positive: Normal pulses; Negative: Edema Neuro Exam: Positive: Normal Speech, Other Psych Exam: Positive: Mental status NL, Mood NL A-FIB/CHADSVASC A-FIB History Current/History of A-Fib/PAF?: No Assessment /Plan Problems (1) Myasthenia exacerbation Status: Acute Problem Specific Plan: Consult Specialist Problem Text: 02/01/19: Day #5 of IVIG. Remains on CellCept. Her NIF has fluctuated between -10 and -20 today. She may very well be at her baseline, and I frequently hear the comment that these fluctuations are effort dependent. However, I would expect that the same person performing the same task 3 times a day for 5 days would begin to get better at it. Therefore these inconsistencies concern me that she is truly having fluctuating function. The fact that she has redeveloped diplopia, a symptom which went away 4 days ago, is also concerning. The fact that her diet had to be stepped down for safety and a concern of fatigue also concerns me. I have asked neurology to reevaluate the patient and offer additional suggestions for optimization of her treatment if appropriate. 01/31/19: Patient progressing slowly. Day #4 of IVIG. Remains on CellCept. We are awaiting NIF score to be <-25 to downgrade her status and move her out of ICU. PT continues to work with patient. Speech therapy continues to work with patient. She remains on a pureed/mechanical soft diet. We will need to continue to monitor 01/30/19: Neurology consulted. Recommendations below. Day #3 of IVIG. CellCept was started yesterday. PLAN: 1. Recommend monitoring of the NIF every 8 hours. Continue IVIG 20 grams daily for 5 days. PT/OT evaluation. 2. Recommend long-term immunosuppression with either CellCept methotrexate or prednisone. Recommend confirming whether the patient has been ruled out for thymoma recommend confirm presence of receptor antibodies. 3. Continue pyridostigmine 60 mg by mouth three times a day. History obtained from both the patient the patient's son. The patient to follow up in the [facility] in 4-6 weeks after discharge. Appreciate Neuro consult. Continue with Immunoglobulin. (2) Raynauds disease Status: Chronic Response to Treatment: Stable (3) GERD (gastroesophageal reflux disease) Status: Chronic Response to Treatment: Stable Problem Text: IV protonix ordered (4) CAD (coronary artery disease) Status: Chronic Response to Treatment: Stable Problem Text: currently on aspirin. Plan/VTE VTE Prophylaxis Ordered?: Yes (Lovenox ) VS, I&O, 24H, Fishbone Vital Signs/I&O Vital Signs Date Time Temp Pulse Resp B/P (MAP) Pulse Ox O2 Delivery O2 Flow Rate FiO2 02/01/19 12:00 99.6 102 18 116/67 (83) 98 01/28/19 11:36 Room Air I&O- Last 24 Hours up to 6 AM 02/01/19 06:00 Intake Total 820 ml Output Total 1430 ml Balance -610 ml Laboratory Data 24H LABS Laboratory Tests 2 02/01/19 04:59: Nucleated Red Blood Cells % (auto) 0.0, Anion Gap 3L, Glomerular Filtration Rate > 60.0, Blood Urea Nitrogen 7, Creatinine 0.66, Sodium Level 141, Potassium Level 3.6, Chloride Level 108H, Carbon Dioxide Level 30, Calcium Level 8.8, Aspartate Amino Transf (AST/SGOT) 18, Alanine Aminotransferase (ALT/SGPT) 16, Alkaline Phosphatase 66, Total Bilirubin 0.3, Total Protein 8.4#H, Albumin 3.1L, Albumin/Globulin Ratio 0.58L CBC/BMP Laboratory Tests 02/01/19 04:59 Red Blood Count 4.48, Mean Corpuscular Volume 87.3, Mean Corpuscular Hemoglobin 26.8 L, Mean Corpuscular Hemoglobin Concent 30.7 L, Red Cell Distribution Width 13.6, Calcium Level 8.8, Aspartate Amino Transf (AST/SGOT) 18, Alanine Aminotransferase (ALT/SGPT) 16, Alkaline Phosphatase 66, Total Bilirubin 0.3, Total Protein 8.4 #H, Albumin 3.1 L Microbiology Microbiology 01/28/19 MRSA Screen - Final, Complete Hubert Anderson MD February 01, 2019 17:22
[2019-02-01] MEDS ORDERED: methylPREDNISolone INJ 125 MG/2 ML VIAL (J2930) IV SCH (18:00)
[2019-02-01 20:00] VITALS: BP 126/60
[2019-02-01] MEDS: NS IV SCH (20:36)
[2019-02-01] MEDS: METHYLPREDNISOLONE IV SCH (20:36)
[2019-02-01] MEDS: ENOXAPARIN 40 MG/0.4 ML SYRINGE (J1650) SC SCH (20:37)
[2019-02-01] MEDS ORDERED: SENOKOT S TAB PO PRN (22:30)
[2019-02-02] VITALS: BP 133/71
[2019-02-02 04:00] VITALS: BP 156/77
[2019-02-02 08:00] VITALS: BP 124/63
[2019-02-02] MEDS: ASPIRIN 81 MG ENTERIC TAB PO SCH (09:43)
[2019-02-02] MEDS: PYRIDOSTIGMINE 60 MG TAB PO SCH ×4 (09:43→20:12)
[2019-02-02] MEDS: MYCOPHENOLATE MOFETIL 250 MG CAP (J7517) PO SCH ×2 (09:44→20:12)
[2019-02-02] MEDS: PANTOPRAZOLE 40MG INJ (PROTONIX) (C9113) IV SCH (09:44)
--- NOTE | 2019-02-02 11:45 | IPNPDOC ---
Subjective Date Seen The patient was seen on 02/02/19. Subjective Chief Complaint/HPI Patient sitting in chair speaking with speech therapy as I entered the room. She reports to be feeling well, still a little weak Constitutional: Denies: Chills, Fever Pulmonary: Denies: Dyspnea, Cough, Pleuritic Chest Pain Cardiovascular: Denies: Chest Pain, Palpitations, Orthopnea, Edema Gastrointestinal: Denies: Nausea, Vomiting, Abdominal Pain Psych: Reports: Mood Normal Objective Physical Examination General Exam: Positive: Alert, Cooperative (sitting up preparing to eat her dinner when I entered the room), No Acute Distress Eye Exam: Positive: Conjunctiva & lids normal, Ptosis (? L slightly greater than R); Negative: Sclera icteric ENT Exam: Positive: Mucous membr. moist/pink Neck Exam: Positive: Supple; Negative: JVD, thyromegaly, Lymphadenopathy Chest Exam: Positive: Clear to auscultation, Normal air movement Heart Exam: Positive: Rate Normal, Regular Rhythm, Normal S1, Normal S2 Telemetry: Positive: No significant arrhythmia Abdomen Exam: Positive: Normal bowel sounds, Soft; Negative: Tenderness, Hepatospenomegaly Extremity Exam: Positive: Normal pulses; Negative: Edema Neuro Exam: Positive: Normal Speech, Other Psych Exam: Positive: Mental status NL, Mood NL A-FIB/CHADSVASC A-FIB History Current/History of A-Fib/PAF?: No Assessment /Plan Problems (1) Myasthenia exacerbation Status: Acute Problem Specific Plan: Consult Specialist Problem Text: 02/02/19: Neurology ordered another 2 days of IVIG. She remains on CellCept. We will continue to monitor her NIF. She will continue to work with PT 02/01/19: Day #5 of IVIG. Remains on CellCept. Her NIF has fluctuated between -10 and -20 today. She may very well be at her baseline, and I frequently hear the comment that these fluctuations are effort dependent. However, I would expect that the same person performing the same task 3 times a day for 5 days would begin to get better at it. Therefore these inconsistencies concern me that she is truly having fluctuating function. The fact that she has redeveloped di plopia, a symptom which went away 4 days ago, is also concerning. The fact that her diet had to be stepped down for safety and a concern of fatigue also concerns me. I have asked neurology to reevaluate the patient and offer additional suggestions for optimization of her treatment if appropriate. 01/31/19: Patient progressing slowly. Day #4 of IVIG. Remains on CellCept. We are awaiting NIF score to be <-25 to downgrade her status and move her out of ICU. PT continues to work with patient. Speech therapy continues to work with patient. She remains on a pureed/mechanical soft diet. We will need to continue to monitor 01/30/19: Neurology consulted. Recommendations below. Day #3 of IVIG. CellCept was started yesterday. PLAN: 1. Recommend monitoring of the NIF every 8 hours. Continue IVIG 20 grams daily for 5 days. PT/OT evaluation. 2. Recommend long-term immunosuppression with either CellCept methotrexate or prednisone. Recommend confirming whether the patient has been ruled out for thymoma recommend confirm presence of receptor antibodies. 3. Continue pyridostigmine 60 mg by mouth three times a day. History obtained from both the patient the patient's son. The patient to follow up in the [facility] in 4-6 weeks after discharge. Appreciate Neuro consult. Continue with Immunoglobulin. (2) Raynauds disease Status: Chronic Response to Treatment: Stable (3) GERD (gastroesophageal reflux disease) Status: Chronic Response to Treatment: Stable Problem Text: IV protonix ordered (4) CAD (coronary artery disease) Status: Chronic Response to Treatment: Stable Problem Text: currently on aspirin. Plan/VTE VTE Prophylaxis Ordered?: Yes (Lovenox ) Plan Family Medicine Attending Note: I saw and examined Ms. Little, discussed with Alyson Benites DNP. Agree with her note as documented. She reports she is doing a bit better today than yesterday. I am concerned because she continues to fluctuate between almost stable and questionably unstable. She has received one more dose of IVIG per neurology's recommendations. They were anticipating she received a total of 7, but she will not be able to receive the last one as the facility is completely out of that substance. 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
[2019-02-02 12:00] VITALS: BP 115/59
[2019-02-02] MEDS ORDERED: IMMUNE GLOBULIN IV SCH (15:00)
[2019-02-02] MEDS ORDERED: DILUENT IV SCH (15:00)
[2019-02-02 16:00] VITALS: BP 133/63
[2019-02-02 20:00] VITALS: BP 124/62
[2019-02-02] MEDS: METHYLPREDNISOLONE IV SCH (20:12)
[2019-02-02] MEDS: ENOXAPARIN 40 MG/0.4 ML SYRINGE (J1650) SC SCH (20:12)
[2019-02-02] MEDS: NS IV SCH (20:12)
[2019-02-03] VITALS (7 sets, daily range): BP systolic 111–139; BP diastolic 58–73
[2019-02-03 05:00] LABS: HEMATOCRIT 37.2 % (36.0-47.0); HEMOGLOBIN 11.6 g/dl (12.0-15.5); MEAN CORPUSCULAR HEMOGLOBIN 27.1 pg (27.0-33.0); MEAN CORPUSCULAR HGB CONC 31.2 g/dl (32.0-36.5); MEAN CORPUSCULAR VOLUME 86.9 fl (80.0-96.0); PLATELET COUNT, AUTOMATED 219 10^3/uL (150-450); RED BLOOD COUNT 4.28 10^6/uL (4.00-5.40); WHITE BLOOD COUNT 4.4 10^3/uL (4.0-10.0)
[2019-02-03 05:31] LABS: ALBUMIN 2.8 GM/DL (3.2-5.2); BLOOD UREA NITROGEN 14 MG/DL (7-18); CALCIUM LEVEL 8.1 MG/DL (8.8-10.2); CARBON DIOXIDE LEVEL 27 MEQ/L (21-32); CHLORIDE LEVEL 109 MEQ/L (98-107); CREATININE FOR GFR 0.72 MG/DL (0.55-1.30); GLOMERULAR FILTRATION RATE > 60.0 (>32); GLUCOSE, FASTING 139 MG/DL (70-100); PHOSPHORUS LEVEL 3.3 MG/DL (2.5-4.9); POTASSIUM SERUM 4.3 MEQ/L (3.5-5.1); SODIUM LEVEL 142 MEQ/L (136-145)
[2019-02-03] MEDS: MYCOPHENOLATE MOFETIL 250 MG CAP (J7517) PO SCH ×2 (08:17→21:16)
[2019-02-03] MEDS: ASPIRIN 81 MG ENTERIC TAB PO SCH (08:18)
[2019-02-03] MEDS: PYRIDOSTIGMINE 60 MG TAB PO SCH ×4 (08:18→21:16)
[2019-02-03] MEDS: PANTOPRAZOLE 40MG INJ (PROTONIX) (C9113) IV SCH (08:18)
[2019-02-03] MEDS ORDERED: FLEET ENEMA PR PRN (08:45)
[2019-02-03] MEDS ORDERED: MIRALAX *UNIT DOSE* 17GM PACKET PO PRN (08:45)
--- NOTE | 2019-02-03 16:15 | IPNPDOC ---
Subjective Date Seen The patient was seen on 02/03/19. Subjective Chief Complaint/HPI She states that she is tired, but feeling better than she previously was. She has been up and walking, with no signs of respiratory distress. She has been a bit constipated. Nursing and respiratory both feel that her NIFs have been low mostly secondary to misunderstanding desired technique rather than true respiratory muscle weakness/fatigue. She notes some persistent diplopia, states it is improving. Nursing notes that she was shakey earlier today, which seemed associated with Solumedrol administration; she was stable ambulating, as long as she used a walker. Constitutional: Reports: Weakness, Fatigue; Denies: Chills, Fever ENT: Reports: Other Symptoms (diplopia) Pulmonary: Denies: Dyspnea, Cough Cardiovascular: Denies: Chest Pain Gastrointestinal: Reports: Constipation; Denies: Nausea, Vomiting Psych: Reports: Mood Normal Objective Physical Examination General Exam: Positive: Alert, Cooperative, No Acute Distress Eye Exam: Positive: Conjunctiva & lids normal, Ptosis (? L slightly greater than R); Negative: Sclera icteric ENT Exam: Positive: Mucous membr. moist/pink Neck Exam: Positive: Supple; Negative: JVD, thyromegaly, Lymphadenopathy Chest Exam: Positive: Clear to auscultation, Normal air movement Heart Exam: Positive: Rate Normal, Regular Rhythm, Normal S1, Normal S2 Telemetry: Positive: No significant arrhythmia Abdomen Exam: Positive: Normal bowel sounds, Soft; Negative: Tenderness, Hepatospenomegaly Extremity Exam: Positive: Normal pulses; Negative: Edema Neuro Exam: Positive: Normal Speech, Other Psych Exam: Positive: Mental status NL, Mood NL A-FIB/CHADSVASC A-FIB History Current/History of A-Fib/PAF?: No Assessment /Plan Problems (1) Myasthenia exacerbation Status: Acute Problem Specific Plan: Consult Specialist Problem Text: 02/03: On Solumedrol, per neurology, with plans for a long prednisone taper. Recheck NIF this morning (-18) better than prior (-12) and does not seem to correlate with clinical situation. I watched respiratory therapy try a couple times with her today, getting variable results. She inhales but doesn't seem to understand the desired technique. She can ambulate without dyspnea, and I'll transfer her to the PCU with continuous pulse oximetry. Diplopia persists, but she states it is improving. 02/02/19: Neurology ordered another 2 days of IVIG. She remains on CellCept. We will continue to monitor her NIF. She will continue to work with PT 02/01/19: Day #5 of IVIG. Remains on CellCept. Her NIF has fluctuated between -10 and -20 today. She may very well be at her baseline, and I frequently hear the comment that these fluctuations are effort dependent. However, I would expect that the same person performing the same task 3 times a day for 5 days would begin to get better at it. Therefore these inconsistencies concern me that she is truly having fluctuating function. The fact that she has redeveloped diplopia, a symptom which went away 4 days ago, is also concerning. The fact that her diet had to be stepped down for safety and a concern of fatigue also concerns me. I have asked neurology to reevaluate the patient and offer additional suggestions for optimization of her treatment if appropriate. 01/31/19: Patient progressing slowly. Day #4 of IVIG. Remains on CellCept. We are awaiting NIF score to be <-25 to downgrade her status and move her out of ICU. PT continues to work with patient. Speech therapy continues to work with patient. She remains on a pureed/mechanical soft diet. We will need to continue to monitor 01/30/19: Neurology consulted. Recommendations below. Day #3 of IVIG. CellCept was started yesterday. PLAN: 1. Recommend monitoring of the NIF every 8 hours. Continue IVIG 20 grams daily for 5 days. PT/OT evaluation. 2. Recommend long-term immunosuppression with either CellCept methotrexate or prednisone. Recommend confirming whether the patient has been ruled out for thymoma recommend confirm presence of receptor antibodies. 3. Continue pyridostigmine 60 mg by mouth three times a day. History obtained from both the patient the patient's son. The patient to follow up in the [facility] in 4-6 weeks after discharge. Appreciate Neuro consult. Continue with Immunoglobulin. (2) Constipation Status: Acute Problem Text: 02/04 -- She now has Miralax, Fleet's enema, and Sennokot prn constipation (3) Raynauds disease Status: Chronic Response to Treatment: Stable (4) GERD (gastroesophageal reflux disease) Status: Chronic Response to Treatment: Stable Problem Text: 02/03 -- switched to PO Protonix IV protonix ordered (5) CAD (coronary artery disease) Status: Chronic Response to Treatment: Stable Problem Text: currently on aspirin. Plan/VTE VTE Prophylaxis Ordered?: Yes (Lovenox ) VS, I&O, 24H, Fishbone Vital Signs/I&O Vital Signs Date Time Temp Pulse Resp B/P (MAP) Pulse Ox O2 Delivery O2 Flow Rate FiO2 02/03/19 12:00 99.0 77 20 124/61 (82) 98 01/28/19 11:36 Room Air I&O- Last 24 Hours up to 6 AM 02/03/19 06:00 Intake Total 1094 ml Output Total 1150 ml Balance -56 ml Laboratory Data 24H LABS Laboratory Tests 2 02/03/19 04:41: Nucleated Red Blood Cells % (auto) 0.0, Blood Urea Nitrogen 14#, Creatinine 0.72, Sodium Level 142, Potassium Level 4.3, Chloride Level 109H, Carbon Dioxide Level 27, Anion Gap 6L, Glomerular Filtration Rate > 60.0, Calcium Level 8.1L, Phosphorus Level 3.3, Albumin 2.8L CBC/BMP Laboratory Tests 02/03/19 04:41 Red Blood Count 4.28, Mean Corpuscular Volume 86.9, Mean Corpuscular Hemoglobin 27.1, Mean Corpuscular Hemoglobin Concent 31.2 L, Red Cell Distribution Width 13.8, Anion Gap 6 L Microbiology Microbiology 01/28/19 MRSA Screen - Final, Complete ROXANN ORELLANA DO February 03, 2019 16:15
[2019-02-03] MEDS ORDERED: SLF 3 ML SYR IV PRN (17:15)
[2019-02-03] MEDS: SLF 3 ML SYR IV SCH (21:15)
[2019-02-03] MEDS: ENOXAPARIN 40 MG/0.4 ML SYRINGE (J1650) SC SCH (21:16)
[2019-02-04] VITALS (7 sets, daily range): BP systolic 111–139; BP diastolic 57–65; O2SAT 97–99
[2019-02-04 05:20] LABS: HEMATOCRIT 39.2 % (36.0-47.0); MEAN CORPUSCULAR HEMOGLOBIN 26.8 pg (27.0-33.0); MEAN CORPUSCULAR HGB CONC 30.6 g/dl (32.0-36.5); MEAN CORPUSCULAR VOLUME 87.5 fl (80.0-96.0); PLATELET COUNT, AUTOMATED 305 10^3/uL (150-450); RED BLOOD COUNT 4.48 10^6/uL (4.00-5.40); WHITE BLOOD COUNT 6.9 10^3/uL (4.0-10.0)
[2019-02-04 05:57] LABS: ALBUMIN 2.9 GM/DL (3.2-5.2); ALT/SGPT 22 U/L (12-78); BILIRUBIN,TOTAL 0.5 MG/DL (0.2-1.0); BLOOD UREA NITROGEN 14 MG/DL (7-18); CALCIUM LEVEL 8.4 MG/DL (8.8-10.2); CARBON DIOXIDE LEVEL 31 MEQ/L (21-32); CHLORIDE LEVEL 108 MEQ/L (98-107); CREATININE FOR GFR 0.74 MG/DL (0.55-1.30); GLOMERULAR FILTRATION RATE > 60.0 (>32); GLUCOSE, FASTING 80 MG/DL (70-100); POTASSIUM SERUM 3.7 MEQ/L (3.5-5.1); SODIUM LEVEL 142 MEQ/L (136-145); TOTAL PROTEIN 7.8 GM/DL (6.4-8.2)
[2019-02-04] MEDS: SLF 3 ML SYR IV SCH ×3 (06:08→20:23)
[2019-02-04] MEDS: ASPIRIN 81 MG ENTERIC TAB PO SCH (09:11)
[2019-02-04] MEDS: METOPROLOL TART 25 MG TABLET PO SCH ×2 (09:11→20:22)
[2019-02-04] MEDS: MYCOPHENOLATE MOFETIL 250 MG CAP (J7517) PO SCH ×2 (09:12→20:21)
[2019-02-04] MEDS: PYRIDOSTIGMINE 60 MG TAB PO SCH ×4 (09:12→20:22)
[2019-02-04] MEDS: PANTOPRAZOLE 40MG TAB (PROTONIX) PO SCH (09:12)
[2019-02-04] MEDS: predniSONE 20 MG TAB PO SCH (12:18)
--- NOTE | 2019-02-04 16:09 | IPNPDOC ---
Subjective Date Seen The patient was seen on 02/04/19. Subjective Chief Complaint/HPI She reports that she is feeling OK. Overnight she had an episode of atrial fibrillation, which appears to be her first. She was briefly dyspneic, which resolved while she remained in atrial fibrillation; denies palpitations. Rate remained at most in the low 100s, and she spontaneously converted back to normal sinus rhythm. Chart review suggests that this was her first episode of a. fib. She is eager to return home. Constitutional: Denies: Chills, Fever, Malaise Cardiovascular: Denies: Chest Pain, Palpitations Gastrointestinal: Denies: Nausea, Vomiting, Abdominal Pain, Diarrhea, Constipation Psych: Reports: Mood Normal Objective Physical Examination General Exam: Positive: Alert, Cooperative, No Acute Distress Eye Exam: Positive: Conjunctiva & lids normal, Ptosis (? L slightly greater than R); Negative: Sclera icteric ENT Exam: Positive: Mucous membr. moist/pink Neck Exam: Positive: Supple; Negative: JVD, thyromegaly, Lymphadenopathy Chest Exam: Positive: Clear to auscultation, Normal air movement Heart Exam: Positive: Rate Normal, Regular Rhythm, Normal S1, Normal S2 Telemetry: Positive: No significant arrhythmia Abdomen Exam: Positive: Normal bowel sounds, Soft; Negative: Tenderness, Hepatospenomegaly Extremity Exam: Positive: Normal pulses; Negative: Edema Neuro Exam: Positive: Normal Speech, Other Psych Exam: Positive: Mental status NL, Mood NL A-FIB/CHADSVASC A-FIB History Current/History of A-Fib/PAF?: Yes Current Oral Anticoagulant The: No Age/Risk Factor Scoring CHADSVASC: CHADSVASC Response (Comments) Value Age Risk Factor Age >/= 75 years old 2 Gender Risk Factor Female 1 Hx of CHF No 0 Hx of HTN No 0 Hx of Stroke/TIA/or VTE No 0 Hx of Diabetes No 0 Hx of Vascular Disease No (Xarelto sent to the pharmacy to check coverage) 0 Total 3 Assessment /Plan Problems (1) Paroxysmal atrial fibrillation Status: Acute Problem Text: Spontaneously terminated, now in NSR. I started some metoprolol for rate control, and sent Xarelto to the pharmacy to check her coverage. She is being watched on telemetry, and I've requested an EKG if she goes back into a. fib. (2) Myasthenia exacerbation Status: Acute Problem Specific Plan: Consult Specialist Problem Text: 02/04: She is off Solumedrol, now on oral prednisone. States diplopia unchanged. 02/03: On Solumedrol, per neurology, with plans for a long prednisone taper. Recheck NIF this morning (-18) better than prior (-12) and does not seem to correlate with clinical situation. I watched respiratory therapy try a couple times with her today, getting variable results. She inhales but doesn't seem to understand the desired technique. She can ambulate without dyspnea, and I'll transfer her to the PCU with continuous pulse oximetry. Diplopia persists, but she states it is improving. 02/02/19: Neurology ordered another 2 days of IVIG. She remains on CellCept. We will continue to monitor her NIF. She will continue to work with PT 02/01/19: Day #5 of IVIG. Remains on CellCept. Her NIF has fluctuated between -10 and -20 today. She may very well be at her baseline, and I frequently hear the comment that these fluctuations are effort dependent. However, I would expect that the same person performing the same task 3 times a day for 5 days would begin to get better at it. Therefore these inconsistencies concern me that she is truly having fluctuating function. The fact that she has redeveloped diplopia, a symptom which went away 4 days ago, is also concerning. The fact that her diet had to be stepped down for safety and a concern of fatigue also concerns me. I have asked neurology to reevaluate the patient and offer additional suggestions for optimization of her treatment if appropriate. 01/31/19: Patient progressing slowly. Day #4 of IVIG. Remains on CellCept. We are awaiting NIF score to be <-25 to downgrade her status and move her out of ICU. PT continues to work with patient. Speech therapy continues to work with patient. She remains on a pureed/mechanical soft diet. We will need to continue to monitor 01/30/19: Neurology consulted. Recommendations below. Day #3 of IVIG. CellCept was started yesterday. PLAN: 1. Recommend monitoring of the NIF every 8 hours. Continue IVIG 20 grams daily for 5 days. PT/OT evaluation. 2. Recommend long-term immunosuppression with either CellCept methotrexate or prednisone. Recommend confirming whether the patient has been ruled out for thymoma recommend confirm presence of receptor antibodies. 3. Continue pyridostigmine 60 mg by mouth three times a day. History obtained from both the patient the patient's son. The patient to follow up in the [facility] in 4-6 weeks after discharge. Appreciate Neuro consult. Continue with Immunoglobulin. (3) Constipation Status: Acute Problem Text: 02/04 -- She now has Miralax, Fleet's enema, and Sennokot prn constipation (4) Raynauds disease Status: Chronic Response to Treatment: Stable (5) GERD (gastroesophageal reflux disease) Status: Chronic Response to Treatment: Stable Problem Text: 02/03 -- switched to PO Protonix IV protonix ordered (6) CAD (coronary artery disease) Status: Chronic Response to Treatment: Stable Problem Text: currently on aspirin. Plan/VTE VTE Prophylaxis Ordered?: Yes (Lovenox ) VS, I&O, 24H, Fishbone Vital Signs/I&O Vital Signs Date Time Temp Pulse Resp B/P (MAP) Pulse Ox O2 Delivery O2 Flow Rate FiO2 02/04/19 12:00 97 Room Air 02/04/19 09:11 86 126/68 02/04/19 08:00 98.7 20 I&O- Last 24 Hours up to 6 AM 02/04/19 06:00 Intake Total 1200 ml Output Total 700 ml Balance 500 ml Laboratory Data 24H LABS Laboratory Tests 2 02/04/19 04:59: Nucleated Red Blood Cells % (auto) 0.0, Anion Gap 3L, Glomerular Filtration Rate > 60.0, Blood Urea Nitrogen 14, Creatinine 0.74, Sodium Level 142, Potassium Level 3.7, Chloride Level 108H, Carbon Dioxide Level 31, Calcium Level 8.4L, Aspartate Amino Transf (AST/SGOT) 21, Alanine Aminotransferase (ALT/SGPT) 22, Alkaline Phosphatase 66, Total Bilirubin 0.5#, Total Protein 7.8, Albumin 2.9L, Albumin/Globulin Ratio 0.59L CBC/BMP Laboratory Tests 02/04/19 04:59 Red Blood Count 4.48, Mean Corpuscular Volume 87.5, Mean Corpuscular Hemoglobin 26.8 L, Mean Corpuscular Hemoglobin Concent 30.6 L, Red Cell Distribution Width 14.0, Calcium Level 8.4 L, Aspartate Amino Transf (AST/SGOT) 21, Alanine Aminotransferase (ALT/SGPT) 22, Alkaline Phosphatase 66, Total Bilirubin 0.5 #, Total Protein 7.8, Albumin 2.9 L Microbiology Microbiology 01/28/19 MRSA Screen - Final, Complete ROXANN ORELLANA DO February 04, 2019 16:09
[2019-02-04] MEDS: ENOXAPARIN 40 MG/0.4 ML SYRINGE (J1650) SC SCH (20:23)
[2019-02-05] VITALS (11 sets, daily range): BP systolic 103–153; BP diastolic 51–72; O2SAT 97–100
[2019-02-05] MEDS: SLF 3 ML SYR IV SCH ×3 (05:27→21:04)
[2019-02-05] MEDS: ASPIRIN 81 MG ENTERIC TAB PO SCH ×2 (08:10→09:00)
[2019-02-05] MEDS: predniSONE 20 MG TAB PO SCH (08:10)
[2019-02-05] MEDS: PYRIDOSTIGMINE 60 MG TAB PO SCH ×5 (08:10→21:03)
[2019-02-05] MEDS: PANTOPRAZOLE 40MG TAB (PROTONIX) PO SCH ×2 (08:10→09:00)
[2019-02-05] MEDS: MYCOPHENOLATE MOFETIL 250 MG CAP (J7517) PO SCH ×2 (08:10→21:03)
[2019-02-05] MEDS: METOPROLOL TART 25 MG TABLET PO SCH ×2 (08:11→21:04)
--- NOTE | 2019-02-05 09:18 | IPNPDOC ---
Subjective Date Seen The patient was seen on 02/05/19. Subjective Chief Complaint/HPI Nursing at bedside this morning. Pt didn't sleep well overnight and is quite fatigued this morning. Nursing reports noticing increased difficulty swallowing when more tired. Difficulty getting her pills in her this morning. Pt without concerns except for feeling tired. General: Reports: Fatigue Constitutional: Denies: Chills, Fever ENT: Denies: Head Aches Pulmonary: Denies: Dyspnea, Cough Cardiovascular: Denies: Chest Pain, Palpitations Gastrointestinal: Denies: Nausea, Vomiting, Diarrhea Neurological: Reports: Weakness Psych: Reports: Mood Normal Objective Physical Examination General Exam: Positive: Alert, Cooperative (in bedside chair), No Acute Distress Eye Exam: Positive: Conjunctiva & lids normal, Ptosis (? L slightly greater than R); Negative: Sclera icteric ENT Exam: Positive: Mucous membr. moist/pink Neck Exam: Positive: Supple; Negative: JVD, thyromegaly, Lymphadenopathy Chest Exam: Positive: Clear to auscultation, Normal air movement Heart Exam: Positive: Rate Normal, Regular Rhythm, Normal S1, Normal S2 Telemetry: Positive: No significant arrhythmia Abdomen Exam: Positive: Normal bowel sounds, Soft; Negative: Tenderness, Hepatospenomegaly Extremity Exam: Positive: Normal pulses; Negative: Edema Neuro Exam: Positive: Normal Speech, Other Psych Exam: Positive: Mental status NL, Mood NL A-FIB/CHADSVASC A-FIB History Current/History of A-Fib/PAF?: Yes Current Oral Anticoagulant The: No Age/Risk Factor Scoring CHADSVASC: CHADSVASC Response (Comments) Value Age Risk Factor Age >/= 75 years old 2 Gender Risk Factor Female 1 Hx of CHF No 0 Hx of HTN No 0 Hx of Stroke/TIA/or VTE Yes 2 Hx of Diabetes No 0 Hx of Vascular Disease No (Xarelto sent to the pharmacy to check coverage) 0 Total 5 Treatment Treatment ordered: Rivaroxaban Assessment /Plan Assessment 02/05 -- Agree with below. Patient is pleasantly confused today, which is a change for her. I ordered a UA, though I expect it might be medication related, perhaps secondary to steroids. Most of her pills are now being crushed and mixed with applesauce, as swallowing them was difficult for her. -- CDT Problems (1) Paroxysmal atrial fibrillation Status: Acute Problem Text: 02/05 EUFEMIA 5, start Xarelto. 02/04 Spontaneously terminated, now in NSR. I started some metoprolol for rate control, and sent Xarelto to the pharmacy to check her coverage. She is being watched on telemetry, and I've requested an EKG if she goes back into a. fib. (2) Myasthenia exacerbation Status: Acute Problem Specific Plan: Consult Specialist Problem Text: 02/05 mgmt per Neuro. Now on Pred taper. 02/04: She is off Solumedrol, now on oral prednisone. States diplopia unchanged. 02/03: On Solumedrol, per neurology, with plans for a long prednisone taper. Recheck NIF this morning (-18) better than prior (-12) and does not seem to correlate with clinical situation. I watched respiratory therapy try a couple times with her today, getting variable results. She inhales but doesn't seem to understand the desired technique. She can ambulate without dyspnea, and I'll transfer her to the PCU with continuous pulse oximetry. Diplopia persists, but she states it is improving. 02/02/19: Neurology ordered another 2 days of IVIG. She remains on CellCept. We will continue to monitor her NIF. She will continue to work with PT 02/01/19: Day #5 of IVIG. Remains on CellCept. Her NIF has fluctuated between -10 and -20 today. She may very well be at her baseline, and I frequently hear the comment that these fluctuations are effort dependent. However, I would expect that the same person performing the same task 3 times a day for 5 days would begin to get better at it. Therefore these inconsistencies concern me that she is truly having fluctuating function. The fact that she has redeveloped diplopia, a symptom which went away 4 days ago, is also concerning. The fact that her diet had to be stepped down for safety and a concern of fatigue also concerns me. I have asked neurology to reevaluate the patient and offer additional suggestions for optimization of her treatment if appropriate. 01/31/19: Patient progressing slowly. Day #4 of IVIG. Remains on CellCept. We are awaiting NIF score to be <-25 to downgrade her status and move her out of ICU. PT continues to work with patient. Speech therapy continues to work with patient. She remains on a pureed/mechanical soft diet. We will need to continue to monitor 01/30/19: Neurology consulted. Recommendations below. Day #3 of IVIG. CellCept was started yesterday. PLAN: 1. Recommend monitoring of the NIF every 8 hours. Continue IVIG 20 grams daily for 5 days. PT/OT evaluation. 2. Recommend long-term immunosuppression with either CellCept methotrexate or prednisone. Recommend confirming whether the patient has been ruled out for thymoma recommend confirm presence of receptor antibodies. 3. Continue pyridostigmine 60 mg by mouth three times a day. History obtained from both the patient the patient's son. The patient to follow up in the [facility] in 4-6 weeks after discharge. Appreciate Neuro consult. Continue with Immunoglobulin. (3) Dysphagia Status: Chronic Problem Text: Pt currently being following by ST. Diet adjusted accordingly. (4) Constipation Status: Acute Problem Text: 02/04 -- She now has Miralax, Fleet's enema, and Sennokot prn constipation (5) Raynauds disease Status: Chronic Response to Treatment: Stable (6) GERD (gastroesophageal reflux disease) Status: Chronic Response to Treatment: Stable Problem Text: 02/03 -- switched to PO Protonix IV protonix ordered (7) CAD (coronary artery disease) Status: Chronic Response to Treatment: Stable Problem Text: currently on aspirin. Plan/VTE VTE Prophylaxis Ordered?: Yes (Lovenox ) VS, I&O, 24H, Fishbone Vital Signs/I&O Vital Signs Date Time Temp Pulse Resp B/P (MAP) Pulse Ox O2 Delivery O2 Flow Rate FiO2 02/05/19 08:11 96 153/72 02/05/19 07:56 97.9 19 90 02/05/19 06:00 Room Air I&O- Last 24 Hours up to 6 AM 02/05/19 06:00 Intake Total 1480 ml Output Total 600 ml Balance 880 ml Laboratory Data Microbiology Microbiology 01/28/19 MRSA Screen - Final, Complete ASHLEY RODARTE PA-C February 05, 2019 09:18 ROXANN ORELLANA DO February 05, 2019 17:49
[2019-02-05] MEDS: ASPIRIN 81 MG CHEW TABLET PO SCH (16:17)
--- NOTE | 2019-02-05 16:20 | NUR ---
RN reported increased fatigue & confusion, w/ difficulty swallowing pills whole in puree today. Recommend pills crushed in puree assist moving forward. Addendum: 02/05/19 at 1621 by DELGADO THOMPSON [facility] Amended: Links added.
[2019-02-05] MEDS: diphenhydrAMINE 25 MG CAP PO PRN (21:03)
[2019-02-05] MEDS: ENOXAPARIN 40 MG/0.4 ML SYRINGE (J1650) SC SCH (21:04)
[2019-02-06] MEDS: SLF 3 ML SYR IV SCH ×3 (05:08→20:40)
[2019-02-06 06:08] LABS: BASO % 0.5 % (0.0-1.0); EOS # 0.1 10^3/uL (0.0-0.50); EOS % 0.8 % (0.0-3.0); HEMATOCRIT 36.7 % (36.0-47.0); HEMOGLOBIN 11.4 g/dl (12.0-15.5); LYMPH % 53.1 % (24.0-44.0); MEAN CORPUSCULAR HGB CONC 31.1 g/dl (32.0-36.5); MEAN CORPUSCULAR VOLUME 86.8 fl (80.0-96.0); MONO # 0.7 10^3/uL (0.0-0.8); MONO % 9.3 % (0.0-5.0); NEUTROPHILS # 2.7 10^3/uL (1.8-7.7); NEUTROPHILS % 36.2 % (36.0-66.0); PLATELET COUNT, AUTOMATED 316 10^3/uL (150-450); RED BLOOD COUNT 4.23 10^6/uL (4.00-5.40); WHITE BLOOD COUNT 7.5 10^3/uL (4.0-10.0)
[2019-02-06 06:37] LABS: BLOOD UREA NITROGEN 16 MG/DL (7-18); CALCIUM LEVEL 8.7 MG/DL (8.8-10.2); CARBON DIOXIDE LEVEL 31 MEQ/L (21-32); CHLORIDE LEVEL 107 MEQ/L (98-107); CREATININE FOR GFR 0.71 MG/DL (0.55-1.30); GLOMERULAR FILTRATION RATE > 60.0 (>32); GLUCOSE, FASTING 83 MG/DL (70-100); POTASSIUM SERUM 3.7 MEQ/L (3.5-5.1); SODIUM LEVEL 143 MEQ/L (136-145)
[2019-02-06 08:00] VITALS: BP 126/63
[2019-02-06] MEDS: predniSONE 20 MG TAB PO SCH (08:59)
[2019-02-06] MEDS: ASPIRIN 81 MG CHEW TABLET PO SCH (08:59)
[2019-02-06] MEDS ORDERED: PANTOPRAZOLE 40MG INJ (PROTONIX) (C9113) IV SCH (09:00)
[2019-02-06] MEDS: PYRIDOSTIGMINE 60 MG TAB PO SCH ×4 (09:00→20:40)
[2019-02-06] MEDS: MYCOPHENOLATE MOFETIL 250 MG CAP (J7517) PO SCH ×2 (09:00→20:40)
[2019-02-06] MEDS: METOPROLOL TART 25 MG TABLET PO SCH ×2 (09:00→20:40)
--- NOTE | 2019-02-06 10:19 | IPNPDOC ---
Subjective Date Seen The patient was seen on 02/06/19. Subjective Chief Complaint/HPI Pt this morning states that she is feeling much better. SHe slept well last night. Nursing reports that she has eaten well this morning and did well taking her pills. General: Denies: Fatigue Constitutional: Denies: Chills, Fever ENT: Denies: Head Aches Pulmonary: Denies: Dyspnea, Cough Cardiovascular: Denies: Chest Pain, Palpitations Gastrointestinal: Denies: Nausea, Vomiting, Diarrhea Neurological: Denies: Weakness Psych: Reports: Mood Normal Objective Physical Examination General Exam: Positive: Alert, Cooperative (in bedside chair), No Acute Distress Eye Exam: Negative: Sclera icteric ENT Exam: Positive: Mucous membr. moist/pink Neck Exam: Positive: Supple; Negative: JVD, thyromegaly, Lymphadenopathy Chest Exam: Positive: Clear to auscultation, Normal air movement Heart Exam: Positive: Rate Normal, Regular Rhythm, Normal S1, Normal S2 Telemetry: Positive: No significant arrhythmia Abdomen Exam: Positive: Normal bowel sounds, Soft; Negative: Tenderness, Hepatospenomegaly Extremity Exam: Positive: Normal pulses; Negative: Edema Neuro Exam: Positive: Normal Speech, Other Psych Exam: Positive: Mental status NL, Mood NL A-FIB/CHADSVASC A-FIB History Current/History of A-Fib/PAF?: Yes Current Oral Anticoagulant The: Yes Age/Risk Factor Scoring CHADSVASC: CHADSVASC Response (Comments) Value Age Risk Factor Age >/= 75 years old 2 Gender Risk Factor Female 1 Hx of CHF No 0 Hx of HTN No 0 Hx of Stroke/TIA/or VTE Yes 2 Hx of Diabetes No 0 Hx of Vascular Disease No (Xarelto sent to the pharmacy to check coverage) 0 Total 5 Assessment /Plan Problems (1) Paroxysmal atrial fibrillation Status: Acute Problem Text: 02/06, tele remains NSR, likely can dc tele in AM and transfer to [place] for continued PT 02/05 EUFEMIA 5, start Xarelto. 02/04 Spontaneously terminated, now in NSR. I started some metoprolol for rate control, and sent Xarelto to the pharmacy to check her coverage. She is being watched on telemetry, and I've requested an EKG if she goes back into a. fib. (2) Myasthenia exacerbation Status: Acute Problem Specific Plan: Consult Specialist Problem Text: 02/05 mgmt per Neuro. Now on Pred taper. 02/04: She is off Solumedrol, now on oral prednisone. States diplopia unchanged. 02/03: On Solumedrol, per neurology, with plans for a long prednisone taper. Recheck NIF this morning (-18) better than prior (-12) and does not seem to correlate with clinical situation. I watched respiratory therapy try a couple times with her today, getting variable results. She inhales but doesn't seem to understand the desired technique. She can ambulate without dyspnea, and I'll transfer her to the PCU with continuous pulse oximetry. Diplopia persists, but she states it is improving. 02/02/19: Neurology ordered another 2 days of IVIG. She remains on CellCept. We will continue to monitor her NIF. She will continue to work with PT 02/01/19: Day #5 of IVIG. Remains on CellCept. Her NIF has fluctuated between -10 and -20 today. She may very well be at her baseline, and I frequently hear the comment that these fluctuations are effort dependent. However, I would expect that the same person performing the same task 3 times a day for 5 days would begin to get better at it. Therefore these inconsistencies concern me that she i s truly having fluctuating function. The fact that she has redeveloped diplopia, a symptom which went away 4 days ago, is also concerning. The fact that her diet had to be stepped down for safety and a concern of fatigue also concerns me. I have asked neurology to reevaluate the patient and offer additional suggestions for optimization of her treatment if appropriate. 01/31/19: Patient progressing slowly. Day #4 of IVIG. Remains on CellCept. We are awaiting NIF score to be <-25 to downgrade her status and move her out of ICU. PT continues to work with patient. Speech therapy continues to work with patient. She remains on a pureed/mechanical soft diet. We will need to continue to monitor 01/30/19: Neurology consulted. Recommendations below. Day #3 of IVIG. CellCept was started yesterday. PLAN: 1. Recommend monitoring of the NIF every 8 hours. Continue IVIG 20 grams daily for 5 days. PT/OT evaluation. 2. Recommend long-term immunosuppression with either CellCept methotrexate or prednisone. Recommend confirming whether the patient has been ruled out for thymoma recommend confirm presence of receptor antibodies. 3. Continue pyridostigmine 60 mg by mouth three times a day. History obtained from both the patient the patient's son. The patient to follow up in the [facility] in 4-6 weeks after discharge. Appreciate Neuro consult. Continue with Immunoglobulin. (3) Dysphagia Status: Chronic Problem Text: Pt currently being following by ST. Diet adjusted accordingly. (4) Constipation Status: Acute Problem Text: 02/04 -- She now has Miralax, Fleet's enema, and Sennokot prn constipation (5) Raynauds disease Status: Chronic Response to Treatment: Stable (6) GERD (gastroesophageal reflux disease) Status: Chronic Response to Treatment: Stable Problem Text: 02/03 -- switched to PO Protonix IV protonix ordered (7) CAD (coronary artery disease) Status: Chronic Response to Treatment: Stable Problem Text: currently on aspirin. Plan/VTE VTE Prophylaxis Ordered?: Yes (Lovenox ) VS, I&O, 24H, Fishbone Vital Signs/I&O Vital Signs Date Time Temp Pulse Resp B/P (MAP) Pulse Ox O2 Delivery O2 Flow Rate FiO2 02/06/19 09:00 76 02/06/19 08:00 98.4 20 126/63 (84) 95 02/05/19 06:00 Room Air I&O- Last 24 Hours up to 6 AM 02/06/19 06:00 Intake Total 480 ml Output Total 100 ml Balance 380 ml Laboratory Data 24H LABS Laboratory Tests 2 02/06/19 05:52: Immature Granulocyte % (Auto) 0.1, White Blood Count 7.5, Red Blood Count 4.23, Hemoglobin 11.4L, Hematocrit 36.7, Mean Corpuscular Volume 86.8, Mean Corpuscular Hemoglobin 27.0, Mean Corpuscular Hemoglobin Concent 31.1L, Red Cell Distribution Width 13.7, Platelet Count 316, Neutrophils (%) (Auto) 36.2, Lymphocytes (%) (Auto) 53.1H, Monocytes (%) (Auto) 9.3H, Eosinophils (%) (Auto) 0.8, Basophils (%) (Auto) 0.5, Neutrophils # (Auto) 2.7, Lymphocytes # (Auto) 4.0, Monocytes # (Auto) 0.7, Eosinophils # (Auto) 0.1, Basophils # (Auto) 0.0, Nucleated Red Blood Cells % (auto) 0.0, Anion Gap 5L, Glomerular Filtration Rate > 60.0, Blood Urea Nitrogen 16, Creatinine 0.71, Sodium Level 143, Potassium Level 3.7, Chloride Level 107, Carbon Dioxide Level 31, Calcium Level 8.7L CBC/BMP Laboratory Tests 02/06/19 05:52 Red Blood Count 4.23, Mean Corpuscular Volume 86.8, Mean Corpuscular Hemoglobin 27.0, Mean Corpuscular Hemoglobin Concent 31.1 L, Red Cell Distribution Width 13.7, Neutrophils (%) (Auto) 36.2, Lymphocytes (%) (Auto) 53.1 H, Monocytes (%) (Auto) 9.3 H, Eosinophils (%) (Auto) 0.8, Basophils (%) (Auto) 0.5, Neutrophils # (Auto) 2.7, Lymphocytes # (Auto) 4.0, Monocytes # (Auto) 0.7, Eosinophils # (Auto) 0.1, Basophils # (Auto) 0.0, Calcium Level 8.7 L Microbiology Microbiology 01/28/19 MRSA Screen - Final, Complete ASHLEY RODARTE PA-C February 06, 2019 10:19
[2019-02-06 10:58] LABS: BASO # 0.1 10^3/uL (0.0-0.2); BASO % 0.7 % (0.0-1.0); EOS # 0.1 10^3/uL (0.0-0.50); HEMATOCRIT 38.5 % (36.0-47.0); HEMOGLOBIN 11.7 g/dl (12.0-15.5); LYMPH # 2.8 10^3/uL (1.5-4.5); LYMPH % 39.4 % (24.0-44.0); MEAN CORPUSCULAR HEMOGLOBIN 26.4 pg (27.0-33.0); MEAN CORPUSCULAR HGB CONC 30.4 g/dl (32.0-36.5); MEAN CORPUSCULAR VOLUME 86.9 fl (80.0-96.0); MONO # 0.5 10^3/uL (0.0-0.8); MONO % 6.8 % (0.0-5.0); NEUTROPHILS # 3.7 10^3/uL (1.8-7.7); NEUTROPHILS % 51.8 % (36.0-66.0); PLATELET COUNT, AUTOMATED 379 10^3/uL (150-450); RED BLOOD COUNT 4.43 10^6/uL (4.00-5.40); WHITE BLOOD COUNT 7.1 10^3/uL (4.0-10.0)
[2019-02-06 11:22] LABS: ALBUMIN 3.1 GM/DL (3.2-5.2); ALT/SGPT 33 U/L (12-78); BILIRUBIN,TOTAL 0.4 MG/DL (0.2-1.0); BLOOD UREA NITROGEN 19 MG/DL (7-18); CALCIUM LEVEL 8.7 MG/DL (8.8-10.2); CARBON DIOXIDE LEVEL 27 MEQ/L (21-32); CHLORIDE LEVEL 107 MEQ/L (98-107); CREATININE FOR GFR 0.82 MG/DL (0.55-1.30); GLOMERULAR FILTRATION RATE > 60.0 (>32); GLUCOSE, FASTING 108 MG/DL (70-100); POTASSIUM SERUM 3.5 MEQ/L (3.5-5.1); SODIUM LEVEL 141 MEQ/L (136-145); TOTAL PROTEIN 7.8 GM/DL (6.4-8.2)
[2019-02-06 12:00] VITALS: BP 130/61
[2019-02-06 16:00] VITALS: BP 127/60
[2019-02-06] MEDS: RIVAROXABAN 20 MG TAB (XARELTO) PO SCH (17:17)
--- NOTE | 2019-02-06 18:19 | ECHO ---
DATE OF STUDY: 02/06/2019 REFERRING PHYSICIAN: Dr. Jaime Guy INDICATION: Cardiac dysrhythmia, abnormal ECG. Height: 170 cm Weight: 54 kg DIMENSIONS: IVS: 0.7 LV: 3.6 LVPW: 0.7 LA: 3.0 Aorta: 2.6 IVC: 1.7 Mitral E wave velocity: 81 A wave: 81 E prime septal: 11.4 E prime lateral: 10.4 FINDINGS: The study is of acceptable technical quality. Patient is in sinus rhythm. Left ventricle is of normal size and systolic function with estimated left ventricular ejection fraction (LVEF) 60-65%. No segmental wall motion abnormalities are appreciated. Right ventricle is also normal size and systolic function. Both atria appear normal. Aortic, mitral and tricuspid valves appear normal for patient's age. The pulmonic valve was not well seen. No pericardial effusion is present. Inferior vena cava is normal size. Aortic root and aortic arch appear normal. Abdominal aorta was not visualized. Doppler interrogation of aortic valve reveals no stenosis or insufficiency. There is trace mitral insufficiency and trace tricuspid insufficiency. Estimated pulmonary artery pressure is within normal limits. Mitral inflow pattern and tissue Doppler imaging of mitral annulus revealed normal diastolic function. CONCLUSIONS: 1. Study is of acceptable technical quality. 2. Normal left ventricular (LV) size and systolic function, likely normal diastolic function. 3. No significant valvular disease. 4. Normal central venous pressure and likely normal pulmonary artery pressure. COMMENT: Subacute bacterial endocarditis (SBE) prophylaxis is not recommended.
[2019-02-06 20:00] VITALS: BP 131/73
[2019-02-06] MEDS: diphenhydrAMINE 25 MG CAP PO PRN (20:40)
[2019-02-07] VITALS (7 sets, daily range): BP systolic 113–140; BP diastolic 54–77
[2019-02-07] MEDS: SLF 3 ML SYR IV SCH ×3 (05:22→21:58)
[2019-02-07] MEDS: ASPIRIN 81 MG CHEW TABLET PO SCH (09:24)
[2019-02-07] MEDS: PYRIDOSTIGMINE 60 MG TAB PO SCH ×4 (09:24→21:58)
[2019-02-07] MEDS: predniSONE 20 MG TAB PO SCH (09:24)
[2019-02-07] MEDS: MYCOPHENOLATE MOFETIL 250 MG CAP (J7517) PO SCH ×2 (09:24→21:58)
[2019-02-07] MEDS: METOPROLOL TART 25 MG TABLET PO SCH ×2 (09:25→21:59)
--- NOTE | 2019-02-07 09:28 | IPN ---
DATE: 02/07/2019 Jacqui is making slow, steady progress. I visited with her and her sister and her sister thinks that she is progressing as well. She had an echocardiogram yesterday that was essentially normal. Ejection fraction is 60 to 65%. No valvular disease. She is strikingly normal for someone who is 78. Her strength is improving. Physical therapy (PT) cleared her as well. PHYSICAL EXAMINATION: Vital signs are stable. LUNGS: Clear. HEART: Regular rhythm. ABDOMEN: Soft and nontender. EXTREMITIES: No peripheral edema. LABORATORIES: From yesterday. IMPRESSION: 1. Exacerbation of myasthenia gravis. She is improved and we will probably plan to discharge her tomorrow. 2. Paroxysmal atrial fibrillation. Rate is controlled. She is anticoagulated. She converted to sinus rhythm spontaneously and is maintained in sinus rhythm so we can move her off telemetry.
[2019-02-07] MEDS: PANTOPRAZOLE 40MG TAB (PROTONIX) PO SCH (09:38)
--- NOTE | 2019-02-07 14:36 | NUR ---
Recommend upgrade to level 2 mechanically altered (NDD) solids and continue thin liquids no straw. Will f/u tolerance diet upgrade. Addendum: 02/07/19 at 1436 by [facility] Amended: Links added.
[2019-02-07] MEDS: RIVAROXABAN 20 MG TAB (XARELTO) PO SCH (18:53)
[2019-02-08] MEDS: SLF 3 ML SYR IV SCH ×2 (06:31→14:00)
[2019-02-08 06:35] LABS: HEMATOCRIT 37.7 % (36.0-47.0); HEMOGLOBIN 11.6 g/dl (12.0-15.5); MEAN CORPUSCULAR HEMOGLOBIN 26.4 pg (27.0-33.0); MEAN CORPUSCULAR HGB CONC 30.8 g/dl (32.0-36.5); MEAN CORPUSCULAR VOLUME 85.7 fl (80.0-96.0); PLATELET COUNT, AUTOMATED 356 10^3/uL (150-450); WHITE BLOOD COUNT 10.2 10^3/uL (4.0-10.0)
[2019-02-08 06:57] LABS: BLOOD UREA NITROGEN 14 MG/DL (7-18); CALCIUM LEVEL 8.4 MG/DL (8.8-10.2); CARBON DIOXIDE LEVEL 32 MEQ/L (21-32); CHLORIDE LEVEL 107 MEQ/L (98-107); GLOMERULAR FILTRATION RATE > 60.0 (>32); GLUCOSE, FASTING 91 MG/DL (70-100); MAGNESIUM LEVEL 2.2 MG/DL (1.8-2.4); POTASSIUM SERUM 3.9 MEQ/L (3.5-5.1); SODIUM LEVEL 141 MEQ/L (136-145)
--- NOTE | 2019-02-08 09:32 | NUR ---
Discharge recommendations: pureed solids, thin liquids no straws, Ensure, calorie-dense meals, smaller and more frequent meals, small bite/sip, alternate bite/sip, chin tuck during swallow. Pt has been educated on above compensatory strategies and implements these independently w/ 80% accuracy. Although pt does not prefer pureed solids, attempts at diet upgrade to level 2 mechanically altered (NDD) diet have not been successful. Pt tolerates some level 2 food items, while others are inefficient for intake d/t need for extremely small bite size. Discussed that d/t energy conservation needs, pureed diet is safest and least restrictive at this time. Pt is aware of dysphagia and is cognitively capable of self-modifying her diet as tolerated on discharge from hospital. It was recommended pt that she f/u w/ AUTOTRANSFUSIONIST prn if dysphagia persists. Discharged from dysphagia tx this date. Addendum: 02/08/[address] [facility] Amended: Links added.
[2019-02-08 10:15] VITALS: BP 131/78
[2019-02-08] MEDS: METOPROLOL TART 25 MG TABLET PO SCH (10:15)
[2019-02-08] MEDS: MYCOPHENOLATE MOFETIL 250 MG CAP (J7517) PO SCH (10:15)
[2019-02-08] MEDS: PANTOPRAZOLE 40MG TAB (PROTONIX) PO SCH (10:15)
[2019-02-08] MEDS: PYRIDOSTIGMINE 60 MG TAB PO SCH ×2 (10:15→13:38)
[2019-02-08] MEDS: predniSONE 20 MG TAB PO SCH (10:15)
[2019-02-08] MEDS: ASPIRIN 81 MG CHEW TABLET PO SCH (10:15)
[2019-02-08] MEDS ORDERED: PRED20TA PO (10:46)
[2019-02-08] MEDS ORDERED: MEST60TA PO (10:46)
[2019-02-08] MEDS ORDERED: METO1TAB87 PO (10:46)
[2019-02-08] MEDS ORDERED: CELL250C PO (10:46)
[2019-02-08] MEDS ORDERED: XARE20TA PO (10:46)
[2019-02-08 14:00] VITALS: BP 120/55
--- NOTE | 2019-02-08 21:46 | DSES ---
DATE OF ADMISSION: 01/28/2019 DATE OF DISCHARGE: 02/08/2019 PRIMARY CARE PROVIDER: Dr. Wali Ramsey ATTENDING TODAY: Dr. Omari Mckeon. HISTORY: This is an 78-year-old female patient with a history of myasthenia gravis who was brought by her son to the office on 01/25/2019 with a complaint of increased weakness and some low back pain, as well as difficulty swallowing. Although her speech had been okay, she had trouble with occasional double vision, felt as though her legs, back and upper arms were weaker than normal. She was admitted to the hospital for worsening myasthenia gravis with the concern for airway compromise, difficulty swallowing. She was admitted to the intensive care unit (ICU) and neurology was consulted for further management and monitoring. During her hospitalization, she has, in fact, remained medically stable. Dr. Mejia evaluated the patient. He recommended IVIG. She was also started on Solu-Medrol, which has been successfully transitioned to oral prednisone. Her respiratory status has remained stable. Her strength has improved. She has been cleared by physical therapy. She has been working with speech therapy, who at this time recommends a puree diet with thin liquids. Patient resides at home with her sister who can assist with providing care. During her hospitalization, she underwent echocardiogram, which revealed normal left ventricular (LV) size and function, normal diastolic function, normal central venous pressure (CVP). DISCHARGE DIAGNOSES: Paroxysmal atrial fibrillation. Myasthenia gravis exacerbation. Dysphagia. Constipation. Raynaud's. Gastroesophageal reflux disease. Coronary artery disease. DISCHARGE MEDICATIONS: Include: - metoprolol 25 mg by mouth twice a day - Cellcept 500 mg by mouth twice a day - prednisone 60 mg by mouth daily, taper per neurology or primary care provider (PCP). - Mestinon 60 mg by mouth four times a day - Xarelto 20 mg by mouth daily - acetaminophen 1000 mg by mouth four times a day - aspirin 81 mg daily - calcium with D 600/400 one tablet by mouth twice a day - vitamin D 50,000 units by mouth weekly - Nexium 40 mg by mouth daily - pyridostigmine bromide 60 mg by mouth three times a day - Reclast IV annually DISCHARGE PLAN: Will be to followup with Dr. Ramsey in 1 week, followup with neurology in 1 week. Diet should be pureed with thin liquids. edited: 02/09/2019 0722 millicent CLOUD
== END 2019-02-08 15:18 | disposition home health service (06) | DRG 57 ==
LOC: M ED 11:35 → M ED INP 14:17 → M ICU 15:51 → M PCU 02-03 16:28 → M MSPAV 02-07 11:45
PROVIDERS: ADMIT Family Medicine; ATTEND Family Medicine
DX: G70.01 Myasthenia gravis with (acute) exacerbation (principal); I48.0 Paroxysmal atrial fibrillation; K59.00 Constipation, unspecified; R13.10 Dysphagia, unspecified; K21.9 Gastro-esophageal reflux disease without esophagitis; Z79.899 Other long term (current) drug therapy; G43.909 Migraine, unspecified, not intractable, without status migrainosus; E78.5 Hyperlipidemia, unspecified; Z86.73 Personal history of transient ischemic attack (TIA), and cerebral infarction without residual deficits; M19.90 Unspecified osteoarthritis, unspecified site; Z79.82 Long term (current) use of aspirin; I73.00 Raynaud's syndrome without gangrene; I25.10 Atherosclerotic heart disease of native coronary artery without angina pectoris

== ENCOUNTER 2019-02-28 15:23 | Emergency (ER) | payer MEDICARE, MEDICAID ==
[~2019-02-28] VITALS: Ht 167.6 cm; Wt 53.2 kg
[~2019-02-28 15:23] MED LIST changes: +ACET-897 PO; +ASPI81TA85 PO; +CALCCAP4 PO; +CELL250C PO; +MEST60TA PO; +METO1TAB87 PO; +NEXI40CA PO; +PRED20TA PO; +PYRI60TA2 PO; +XARE20TA PO
[2019-02-28 16:30] VITALS: BP 118/58
[2019-02-28] MEDS ORDERED: PRED20TA PO (17:04)
[2019-02-28] MEDS ORDERED: predniSONE 20 MG TAB PO ONE (17:15)
== END 2019-02-28 17:41 | disposition home or self-care (01) ==
LOC: M ED 15:23
DX: G70.01 Myasthenia gravis with (acute) exacerbation (principal); Z79.82 Long term (current) use of aspirin; Z79.899 Other long term (current) drug therapy; Z88.8 Allergy status to other drugs, medicaments and biological substances; Z88.0 Allergy status to penicillin; Z88.2 Allergy status to sulfonamides; Z88.1 Allergy status to other antibiotic agents; Z91.041 Radiographic dye allergy status

== ENCOUNTER → 2019-03-12 | Outpatient (REF) | payer MEDICARE, MEDICAID ==
[2019-03-12 12:54] LABS: CHOLESTEROL RISK RATIO 2.148 (<5); FREE T4 1.24 NG/DL (0.76-1.46); THYROID STIMULATING HORMONE 2.21 uIU/ML (0.358-3.740)
== END ==
LOC: M SFHCPLAZ 09:45
PROVIDERS: ATTEND Family Medicine
DX: R73.01 Impaired fasting glucose (principal); G70.00 Myasthenia gravis without (acute) exacerbation; R19.7 Diarrhea, unspecified; E78.2 Mixed hyperlipidemia
CPT/HCPCS: 36415; 80061; 84439; 84443; 85025; G0463

== ENCOUNTER → 2019-03-12 | Outpatient (REF) | payer MEDICARE, MEDICAID ==
[2019-03-12 12:40] LABS: BASO # 0.1 10^3/uL (0.0-0.2); BASO % 0.4 % (0.0-1.0); EOS # 0.2 10^3/uL (0.0-0.50); EOS % 1.5 % (0.0-3.0); HEMATOCRIT 39.3 % (36.0-47.0); LYMPH # 2.4 10^3/uL (1.5-4.5); LYMPH % 18.3 % (24.0-44.0); MEAN CORPUSCULAR HEMOGLOBIN 27.2 pg (27.0-33.0); MEAN CORPUSCULAR HGB CONC 30.5 g/dl (32.0-36.5); MEAN CORPUSCULAR VOLUME 89.1 fl (80.0-96.0); MONO # 0.7 10^3/uL (0.0-0.8); MONO % 5.3 % (0.0-5.0); NEUTROPHILS # 9.5 10^3/uL (1.8-7.7); NEUTROPHILS % 73.9 % (36.0-66.0); PLATELET COUNT, AUTOMATED 414 10^3/uL (150-450); RED BLOOD COUNT 4.41 10^6/uL (4.00-5.40); WHITE BLOOD COUNT 12.9 10^3/uL (4.0-10.0)
== END ==
LOC: M LABNEURO 09:58 → M LABDRAWP 09:58
PROVIDERS: ATTEND Psychiatry & Neurology Neurology
DX: G70.00 Myasthenia gravis without (acute) exacerbation (principal)

== ENCOUNTER → 2019-03-14 | Outpatient (REF) | payer MEDICARE, MEDICAID | LOC: M SFHCPLAZ 09:55 | PROVIDERS: ATTEND Family Medicine | DX: R19.7 Diarrhea, unspecified (principal) ==

== ENCOUNTER → 2019-03-19 | Outpatient (CLI) | payer MEDICARE, MEDICAID ==
--- NOTE | 2019-03-19 11:25 | REP ---
Clinical: Diarrhea. Technique: Two supine views of the abdomen and pelvis. Findings: Fecal stasis suggested. No bowel obstruction or evidence for perforation. No organomegaly. No abnormal calcifications. Phleboliths noted in the pelvis. Skeletal structures demonstrate age-related changes. Evidence for prior cholecystectomy and bilateral hip placement. Impression: Fecal stasis. No bowel obstruction or obvious perforation. Electronically Signed by Swapnil Zendejas MD 03/19/2019 11:17 A
== END ==
LOC: M RAD 10:41
PROVIDERS: ATTEND Family Medicine
DX: R19.5 Other fecal abnormalities (principal); I87.8 Other specified disorders of veins; R19.7 Diarrhea, unspecified; G70.00 Myasthenia gravis without (acute) exacerbation

== ENCOUNTER → 2019-03-19 | Outpatient (REF) | payer MEDICARE, MEDICAID ==
[2019-03-19 12:15] LABS: BASO % 0.2 % (0.0-1.0); EOS # 0.1 10^3/uL (0.0-0.50); EOS % 0.3 % (0.0-3.0); HEMOGLOBIN 11.2 g/dl (12.0-15.5); LYMPH # 1.7 10^3/uL (1.5-4.5); LYMPH % 10.3 % (24.0-44.0); MEAN CORPUSCULAR HEMOGLOBIN 26.7 pg (27.0-33.0); MEAN CORPUSCULAR HGB CONC 30.3 g/dl (32.0-36.5); MEAN CORPUSCULAR VOLUME 88.3 fl (80.0-96.0); MONO # 0.6 10^3/uL (0.0-0.8); MONO % 3.6 % (0.0-5.0); NEUTROPHILS # 13.6 10^3/uL (1.8-7.7); NEUTROPHILS % 84.8 % (36.0-66.0); PLATELET COUNT, AUTOMATED 428 10^3/uL (150-450); RED BLOOD COUNT 4.19 10^6/uL (4.00-5.40)
== END ==
LOC: M LABDRAWP 09:58
PROVIDERS: ATTEND Psychiatry & Neurology Neurology
DX: G70.00 Myasthenia gravis without (acute) exacerbation (principal)

== ENCOUNTER → 2019-03-26 | Outpatient (REF) | payer MEDICARE, MEDICAID ==
[2019-03-26 12:52] LABS: BASO % 0.3 % (0.0-1.0); EOS % 0.1 % (0.0-3.0); HEMATOCRIT 37.2 % (36.0-47.0); HEMOGLOBIN 11.3 g/dl (12.0-15.5); LYMPH # 1.2 10^3/uL (1.5-4.5); LYMPH % 8.5 % (24.0-44.0); MEAN CORPUSCULAR HGB CONC 30.4 g/dl (32.0-36.5); MONO # 0.3 10^3/uL (0.0-0.8); MONO % 2.3 % (0.0-5.0); NEUTROPHILS # 12.1 10^3/uL (1.8-7.7); NEUTROPHILS % 87.8 % (36.0-66.0); PLATELET COUNT, AUTOMATED 417 10^3/uL (150-450); RED BLOOD COUNT 4.18 10^6/uL (4.00-5.40); WHITE BLOOD COUNT 13.8 10^3/uL (4.0-10.0)
== END ==
LOC: M LABDRAWP 10:11
PROVIDERS: ATTEND Psychiatry & Neurology Neurology
DX: G70.00 Myasthenia gravis without (acute) exacerbation (principal)

== ENCOUNTER → 2019-04-02 | Outpatient (REF) | payer MEDICARE, MEDICAID ==
[2019-04-02 12:19] LABS: BASO % 0.3 % (0.0-1.0); EOS % 0.3 % (0.0-3.0); HEMATOCRIT 37.2 % (36.0-47.0); HEMOGLOBIN 11.4 g/dl (12.0-15.5); LYMPH # 1.3 10^3/uL (1.5-4.5); LYMPH % 9.5 % (24.0-44.0); MEAN CORPUSCULAR HEMOGLOBIN 26.5 pg (27.0-33.0); MEAN CORPUSCULAR HGB CONC 30.6 g/dl (32.0-36.5); MEAN CORPUSCULAR VOLUME 86.3 fl (80.0-96.0); MONO # 0.5 10^3/uL (0.0-0.8); MONO % 3.3 % (0.0-5.0); NEUTROPHILS % 85.3 % (36.0-66.0); PLATELET COUNT, AUTOMATED 401 10^3/uL (150-450); RED BLOOD COUNT 4.31 10^6/uL (4.00-5.40)
== END ==
LOC: M LABDRAWP 11:49
PROVIDERS: ATTEND Psychiatry & Neurology Neurology
DX: G70.00 Myasthenia gravis without (acute) exacerbation (principal)

== ENCOUNTER → 2019-04-16 | Outpatient (REF) | payer MEDICARE, MEDICAID ==
[2019-04-16 13:08] LABS: BASO # 0.1 10^3/uL (0.0-0.2); BASO % 0.5 % (0.0-1.0); EOS # 0.1 10^3/uL (0.0-0.50); EOS % 0.6 % (0.0-3.0); HEMATOCRIT 38.8 % (36.0-47.0); HEMOGLOBIN 11.8 g/dl (12.0-15.5); LYMPH # 1.3 10^3/uL (1.5-4.5); LYMPH % 10.1 % (24.0-44.0); MEAN CORPUSCULAR HEMOGLOBIN 27.1 pg (27.0-33.0); MEAN CORPUSCULAR HGB CONC 30.4 g/dl (32.0-36.5); MEAN CORPUSCULAR VOLUME 89.2 fl (80.0-96.0); MONO # 0.6 10^3/uL (0.0-0.8); MONO % 4.5 % (0.0-5.0); NEUTROPHILS # 10.8 10^3/uL (1.8-7.7); NEUTROPHILS % 82.9 % (36.0-66.0); PLATELET COUNT, AUTOMATED 391 10^3/uL (150-450); RED BLOOD COUNT 4.35 10^6/uL (4.00-5.40)
== END ==
LOC: M LABDRAWP 11:39
PROVIDERS: ATTEND Psychiatry & Neurology Neurology
DX: G70.00 Myasthenia gravis without (acute) exacerbation (principal)

== ENCOUNTER → 2019-04-26 | Outpatient (REF) | payer MEDICARE, MEDICAID ==
[2019-04-26 18:29] LABS: BASO % 0.3 % (0.0-1.0); EOS % 0.1 % (0.0-3.0); HEMATOCRIT 34.5 % (36.0-47.0); HEMOGLOBIN 10.5 g/dl (12.0-15.5); LYMPH % 10.4 % (24.0-44.0); MEAN CORPUSCULAR HEMOGLOBIN 26.7 pg (27.0-33.0); MEAN CORPUSCULAR HGB CONC 30.4 g/dl (32.0-36.5); MEAN CORPUSCULAR VOLUME 87.8 fl (80.0-96.0); MONO # 0.4 10^3/uL (0.0-0.8); NEUTROPHILS # 8.4 10^3/uL (1.8-7.7); NEUTROPHILS % 83.7 % (36.0-66.0); PLATELET COUNT, AUTOMATED 390 10^3/uL (150-450); RED BLOOD COUNT 3.93 10^6/uL (4.00-5.40)
[2019-04-26 18:36] LABS: ALBUMIN 3.3 GM/DL (3.2-5.2); ALT/SGPT 26 U/L (12-78); BILIRUBIN,TOTAL 0.2 MG/DL (0.2-1.0); BLOOD UREA NITROGEN 18 MG/DL (7-18); C REACTIVE PROTEIN QUANTITATIV 0.37 MG/DL (0.00-0.30); CALCIUM LEVEL 8.4 MG/DL (8.8-10.2); CARBON DIOXIDE LEVEL 29 MEQ/L (21-32); CHLORIDE LEVEL 108 MEQ/L (98-107); CREATININE FOR GFR 0.75 MG/DL (0.55-1.30); GLOMERULAR FILTRATION RATE > 60.0 (>32); GLUCOSE, FASTING 143 MG/DL (70-100); NT-PRO BNP 535 PG/ML (<450); POTASSIUM SERUM 4.4 MEQ/L (3.5-5.1); SODIUM LEVEL 141 MEQ/L (136-145); TOTAL PROTEIN 6.1 GM/DL (6.4-8.2)
== END ==
LOC: M SFHCPLAZ 14:28
PROVIDERS: ATTEND Family Medicine
DX: R60.9 Edema, unspecified (principal)
CPT/HCPCS: 36415; 80053; 83880; 85025; 86140; G0463

== ENCOUNTER → 2019-04-30 | Outpatient (REF) | payer MEDICARE, MEDICAID ==
[2019-04-30 11:59] LABS: BASO % 0.3 % (0.0-1.0); EOS % 0.2 % (0.0-3.0); HEMATOCRIT 36.5 % (36.0-47.0); HEMOGLOBIN 11.4 g/dl (12.0-15.5); LYMPH # 1.1 10^3/uL (1.5-4.5); LYMPH % 9.4 % (24.0-44.0); MEAN CORPUSCULAR HEMOGLOBIN 27.1 pg (27.0-33.0); MEAN CORPUSCULAR HGB CONC 31.2 g/dl (32.0-36.5); MEAN CORPUSCULAR VOLUME 86.7 fl (80.0-96.0); MONO # 0.4 10^3/uL (0.0-0.8); MONO % 3.5 % (0.0-5.0); NEUTROPHILS # 9.8 10^3/uL (1.8-7.7); NEUTROPHILS % 85.4 % (36.0-66.0); PLATELET COUNT, AUTOMATED 421 10^3/uL (150-450); RED BLOOD COUNT 4.21 10^6/uL (4.00-5.40); WHITE BLOOD COUNT 11.4 10^3/uL (4.0-10.0)
== END ==
LOC: M LABDRAWP 10:07
PROVIDERS: ATTEND Psychiatry & Neurology Neurology
DX: G70.00 Myasthenia gravis without (acute) exacerbation (principal)

== ENCOUNTER → 2019-05-04 | Outpatient (REF) | payer MEDICARE, MEDICAID ==
[2019-05-04 12:00] LABS: ALBUMIN 3.9 GM/DL (3.2-5.2); BLOOD UREA NITROGEN 16 MG/DL (7-18); CALCIUM LEVEL 9.2 MG/DL (8.8-10.2); CARBON DIOXIDE LEVEL 33 MEQ/L (21-32); CHLORIDE LEVEL 104 MEQ/L (98-107); CREATININE FOR GFR 0.81 MG/DL (0.55-1.30); GLOMERULAR FILTRATION RATE > 60.0 (>32); GLUCOSE, FASTING 93 MG/DL (70-100); MAGNESIUM LEVEL 2.5 MG/DL (1.8-2.4); NT-PRO BNP 626 PG/ML (<450); PHOSPHORUS LEVEL 3.4 MG/DL (2.5-4.9); POTASSIUM SERUM 4.2 MEQ/L (3.5-5.1); SODIUM LEVEL 142 MEQ/L (136-145)
== END ==
LOC: M SFHCPLAZ 10:26
PROVIDERS: ATTEND Nurse Practitioner Family
DX: R60.9 Edema, unspecified (principal)

== ENCOUNTER → 2019-05-14 | Outpatient (REF) | payer MEDICARE, MEDICAID ==
[2019-05-14 11:12] LABS: BASO % 0.4 % (0.0-1.0); EOS # 0.2 10^3/uL (0.0-0.50); EOS % 1.5 % (0.0-3.0); HEMATOCRIT 36.6 % (36.0-47.0); HEMOGLOBIN 11.3 g/dl (12.0-15.5); LYMPH # 1.2 10^3/uL (1.5-4.5); LYMPH % 12.8 % (24.0-44.0); MEAN CORPUSCULAR HEMOGLOBIN 27.3 pg (27.0-33.0); MEAN CORPUSCULAR HGB CONC 30.9 g/dl (32.0-36.5); MEAN CORPUSCULAR VOLUME 88.4 fl (80.0-96.0); MONO # 0.7 10^3/uL (0.0-0.8); MONO % 7.2 % (0.0-5.0); NEUTROPHILS # 7.5 10^3/uL (1.8-7.7); NEUTROPHILS % 77.3 % (36.0-66.0); PLATELET COUNT, AUTOMATED 408 10^3/uL (150-450); RED BLOOD COUNT 4.14 10^6/uL (4.00-5.40); WHITE BLOOD COUNT 9.7 10^3/uL (4.0-10.0)
== END ==
LOC: M LABDRAWP 09:51
PROVIDERS: ATTEND Psychiatry & Neurology Neurology
DX: G70.00 Myasthenia gravis without (acute) exacerbation (principal)

== ENCOUNTER → 2019-05-28 | Outpatient (REF) | payer MEDICARE, MEDICAID ==
[2019-05-28 14:02] LABS: BASO # 0.1 10^3/uL (0.0-0.2); BASO % 0.4 % (0.0-1.0); EOS # 0.1 10^3/uL (0.0-0.5); EOS % 0.9 % (0.0-3.0); HEMATOCRIT 38.6 % (36.0-47.0); HEMOGLOBIN 11.6 g/dl (12.0-15.5); LYMPH # 1.5 10^3/uL (1.5-5.0); LYMPH % 11.4 % (24.0-44.0); MEAN CORPUSCULAR HEMOGLOBIN 26.9 pg (27.0-33.0); MEAN CORPUSCULAR HGB CONC 30.1 g/dl (32.0-36.5); MEAN CORPUSCULAR VOLUME 89.6 fl (80.0-96.0); MONO # 0.8 10^3/uL (0.0-0.8); NEUTROPHILS # 10.3 10^3/uL (1.5-8.5); NEUTROPHILS % 80.4 % (36.0-66.0); PLATELET COUNT, AUTOMATED 408 10^3/uL (150-450); RED BLOOD COUNT 4.31 10^6/uL (4.00-5.40); WHITE BLOOD COUNT 12.8 10^3/uL (4.0-10.0)
== END ==
LOC: M LABNEURO 10:06
PROVIDERS: ATTEND Psychiatry & Neurology Neurology
DX: G70.00 Myasthenia gravis without (acute) exacerbation (principal)

== ENCOUNTER → 2019-06-18 | Outpatient (CLI) | payer MEDICARE, MEDICAID ==
--- NOTE | 2019-06-18 10:49 | REPMRS ---
Patient History The patient states she has not had a clinical breast exam in over a year. Family history of breast cancer at age 50 or over in sister, ovarian cancer in sister. 3D TOMOSYNTHESIS WAS PERFORMED. [facility] lifetime [facility] for [facility] is 1.8%. Digital Woman Screen Mammo: June 18, 2019 - Exam #: [id number] Bilateral CC and MLO view(s) were taken. Technologist: Kiki Marie Technologist Prior study comparison: October 27, 2016, digital woman screen mammo performed at [facility]. November 03, 2015, digital woman screen mammo performed at [facility]. FINDINGS: The breast tissue is heterogeneously dense. This may lower the sensitivity of mammography. There has been no change in the appearance of the mammogram from the prior studies. There is a moderate amount of residual fibroglandular tissue which is fairly symmetric. There is no interval development of dominant mass, areas of architectural distortion, or clustered microcalcification typical of malignancy. Assessment: BI-RADS/ACR category 1 mammogram. Negative Mammogram. Recommendation Routine screening mammogram in 1 year (for women over age 40). This mammogram was interpreted with the aid of an FDA-approved computer-aided dectection system. Electronically Signed By: Gabriel Hamilton MD 06/18/19 [id number]
--- NOTE | 2019-06-19 14:38 | DEXA ---
AP SPINE L1 - L4 1.008 -1.5 0.3 LT FEMUR TOTAL LT NECK RT FEMUR TOTAL RT NECK TOTAL BODY TOTAL LEFT FOREARM 0.640 -2.7 0.1 COMMENTS: There is low bone density of the spine. 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 The decreased density of the spine does represent a significant change. The density of the spine is increased 6.0% since the initial exam on 05/16/2003. The spine density has decreased 10.7% since the most recent exam on 06/17/2016. FOLLOW-UP: Recommendation for the next bone density exam: 2 years.. JANELLED
== END ==
LOC: M WHC 09:00
PROVIDERS: ATTEND Family Medicine
DX: Z12.31 Encounter for screening mammogram for malignant neoplasm of breast (principal); M85.80 Other specified disorders of bone density and structure, unspecified site; Z80.3 Family history of malignant neoplasm of breast

== ENCOUNTER → 2019-06-25 | Outpatient (REF) | payer MEDICARE, MEDICAID ==
[~2019-06-25] MED LIST changes: +CELL500T PO; +FURO40TA2 PO; +PRED10TA2 PO; +QUET1TAB7 PO
[2019-06-25 13:28] LABS: HEMOGLOBIN A1c 5.9 %
[2019-06-25 13:44] LABS: ALBUMIN 3.7 GM/DL (3.2-5.2); ALT/SGPT 21 U/L (12-78); BILIRUBIN,TOTAL 0.3 MG/DL (0.2-1.0); BLOOD UREA NITROGEN 14 MG/DL (7-18); CALCIUM LEVEL 8.9 MG/DL (8.8-10.2); CARBON DIOXIDE LEVEL 32 MEQ/L (21-32); CHLORIDE LEVEL 104 MEQ/L (98-107); CREATININE FOR GFR 0.94 MG/DL (0.55-1.30); GLOMERULAR FILTRATION RATE > 60.0 (>32); GLUCOSE, FASTING 92 MG/DL (70-100); MAGNESIUM LEVEL 2.1 MG/DL (1.8-2.4); NT-PRO BNP 715 PG/ML (<450); POTASSIUM SERUM 4.1 MEQ/L (3.5-5.1); SODIUM LEVEL 141 MEQ/L (136-145); TOTAL PROTEIN 6.5 GM/DL (6.4-8.2)
== END ==
LOC: M SFHCPLAZ 09:50
PROVIDERS: ATTEND Family Medicine
DX: I50.32 Chronic diastolic (congestive) heart failure (principal); Z79.899 Other long term (current) drug therapy; Z79.82 Long term (current) use of aspirin

== ENCOUNTER → 2019-07-20 | Outpatient (REF) | payer MEDICARE, MEDICAID ==
[~2019-07-20] MED LIST changes: -CELL500T PO; -FURO40TA2 PO; -PRED10TA2 PO; -QUET1TAB7 PO
[2019-07-20 11:57] LABS: BASO # 0.1 10^3/uL (0.0-0.2); BASO % 0.7 % (0.0-1.0); EOS # 0.1 10^3/uL (0.0-0.5); EOS % 1.4 % (0.0-3.0); HEMATOCRIT 38.1 % (36.0-47.0); HEMOGLOBIN 11.1 g/dl (12.0-15.5); LYMPH # 1.9 10^3/uL (1.5-5.0); LYMPH % 20.6 % (24.0-44.0); MEAN CORPUSCULAR HGB CONC 29.1 g/dl (32.0-36.5); MEAN CORPUSCULAR VOLUME 89.2 fl (80.0-96.0); MONO # 0.9 10^3/uL (0.0-0.8); MONO % 9.7 % (0.0-5.0); NEUTROPHILS # 6.1 10^3/uL (1.5-8.5); NEUTROPHILS % 67.2 % (36.0-66.0); PLATELET COUNT, AUTOMATED 441 10^3/uL (150-450); RED BLOOD COUNT 4.27 10^6/uL (4.00-5.40); WHITE BLOOD COUNT 9.1 10^3/uL (4.0-10.0)
[2019-07-20 12:12] LABS: ALBUMIN 3.7 GM/DL (3.2-5.2); ALT/SGPT 22 U/L (12-78); BILIRUBIN,TOTAL 0.4 MG/DL (0.2-1.0); BLOOD UREA NITROGEN 12 MG/DL (7-18); C REACTIVE PROTEIN QUANTITATIV 0.35 MG/DL (0.00-0.30); CALCIUM LEVEL 8.9 MG/DL (8.8-10.2); CARBON DIOXIDE LEVEL 32 MEQ/L (21-32); CHLORIDE LEVEL 105 MEQ/L (98-107); CREATININE FOR GFR 0.89 MG/DL (0.55-1.30); GLOMERULAR FILTRATION RATE > 60.0 (>32); GLUCOSE, FASTING 92 MG/DL (70-100); NT-PRO BNP 421 PG/ML (<450); POTASSIUM SERUM 3.8 MEQ/L (3.5-5.1); SODIUM LEVEL 142 MEQ/L (136-145); TOTAL PROTEIN 6.6 GM/DL (6.4-8.2)
== END ==
LOC: M SFHCPLAZ 09:27
PROVIDERS: ATTEND Family Medicine
DX: M85.80 Other specified disorders of bone density and structure, unspecified site (principal); E78.2 Mixed hyperlipidemia; Z86.73 Personal history of transient ischemic attack (TIA), and cerebral infarction without residual deficits; I50.32 Chronic diastolic (congestive) heart failure
CPT/HCPCS: 36415; 80053; 83880; 85025; 86140; G0463

== ENCOUNTER → 2019-07-30 | Outpatient (REF) | payer MEDICARE, MEDICAID ==
[2019-07-30 12:15] LABS: BASO # 0.1 10^3/uL (0.0-0.2); BASO % 0.7 % (0.0-1.0); EOS # 0.1 10^3/uL (0.0-0.5); HEMATOCRIT 37.1 % (36.0-47.0); HEMOGLOBIN 11.3 g/dl (12.0-15.5); LYMPH # 1.4 10^3/uL (1.5-5.0); LYMPH % 18.7 % (24.0-44.0); MEAN CORPUSCULAR HEMOGLOBIN 26.7 pg (27.0-33.0); MEAN CORPUSCULAR HGB CONC 30.5 g/dl (32.0-36.5); MEAN CORPUSCULAR VOLUME 87.5 fl (80.0-96.0); MONO # 0.5 10^3/uL (0.0-0.8); MONO % 7.3 % (0.0-5.0); NEUTROPHILS # 5.2 10^3/uL (1.5-8.5); NEUTROPHILS % 71.9 % (36.0-66.0); PLATELET COUNT, AUTOMATED 406 10^3/uL (150-450); RED BLOOD COUNT 4.24 10^6/uL (4.00-5.40); WHITE BLOOD COUNT 7.2 10^3/uL (4.0-10.0)
[2019-07-30 12:19] LABS: ALBUMIN 3.9 GM/DL (3.2-5.2); BILIRUBIN,TOTAL 0.4 MG/DL (0.2-1.0); CALCIUM LEVEL 9.5 MG/DL (8.8-10.2); CREATININE FOR GFR 0.98 MG/DL (0.55-1.30); GLOMERULAR FILTRATION RATE 58.1 (>32); POTASSIUM SERUM 3.5 MEQ/L (3.5-5.1)
[2019-07-30 12:25] LABS: TOTAL 25(OH) VITAMIN D 122.1 NG/ML (30.0-100.0)
[2019-07-30 12:26] LABS: PTH INTACT 83.4 PG/ML (18.5-88.0)
== END ==
LOC: M SFHCPLAZ 09:04
PROVIDERS: ATTEND Family Medicine
DX: I50.32 Chronic diastolic (congestive) heart failure (principal); E55.9 Vitamin D deficiency, unspecified; M81.0 Age-related osteoporosis without current pathological fracture
CPT/HCPCS: 36415; 80053; 82306; 82607; 83880; 83970; 85025; 85046; 96372; G0463; J0897

== ENCOUNTER → 2019-08-20 | Outpatient (CLI) | payer MEDICARE, MEDICAID ==
[2019-08-20 13:34] LABS: BASO # 0.1 10^3/uL (0.0-0.2); BASO % 0.5 % (0.0-1.0); EOS # 0.2 10^3/uL (0.0-0.5); EOS % 1.6 % (0.0-3.0); HEMATOCRIT 36.2 % (36.0-47.0); HEMOGLOBIN 10.9 g/dl (12.0-15.5); LYMPH # 2.4 10^3/uL (1.5-5.0); LYMPH % 21.5 % (24.0-44.0); MEAN CORPUSCULAR HGB CONC 30.1 g/dl (32.0-36.5); MEAN CORPUSCULAR VOLUME 86.4 fl (80.0-96.0); MONO # 0.9 10^3/uL (0.0-0.8); MONO % 7.8 % (0.0-5.0); NEUTROPHILS # 7.5 10^3/uL (1.5-8.5); NEUTROPHILS % 68.1 % (36.0-66.0); PLATELET COUNT, AUTOMATED 410 10^3/uL (150-450); RED BLOOD COUNT 4.19 10^6/uL (4.00-5.40)
== END ==
LOC: M PLALAB 10:15
PROVIDERS: ATTEND Psychiatry & Neurology Neurology
DX: G70.00 Myasthenia gravis without (acute) exacerbation (principal)

== ENCOUNTER → 2019-08-23 | Outpatient (REF) | payer MEDICARE, MEDICAID ==
[2019-08-23 12:31] LABS: ALBUMIN 4.1 GM/DL (3.2-5.2); ALT/SGPT 19 U/L (12-78); BILIRUBIN,TOTAL 0.4 MG/DL (0.2-1.0); BLOOD UREA NITROGEN 15 MG/DL (7-18); CALCIUM LEVEL 8.6 MG/DL (8.8-10.2); CARBON DIOXIDE LEVEL 31 MEQ/L (21-32); CHLORIDE LEVEL 104 MEQ/L (98-107); CREATININE FOR GFR 0.94 MG/DL (0.55-1.30); GLOMERULAR FILTRATION RATE > 60.0 (>32); GLUCOSE, FASTING 99 MG/DL (70-100); MAGNESIUM LEVEL 2.3 MG/DL (1.8-2.4); NT-PRO BNP 471 PG/ML (<450); POTASSIUM SERUM 3.3 MEQ/L (3.5-5.1); SODIUM LEVEL 141 MEQ/L (136-145); TOTAL PROTEIN 6.8 GM/DL (6.4-8.2)
[2019-08-23 12:36] LABS: PTH INTACT 238.4 PG/ML (18.5-88.0); TOTAL 25(OH) VITAMIN D 90.7 NG/ML (30.0-100.0)
[2019-08-23 13:22] LABS: HEMOGLOBIN A1c 6.2 %
== END ==
LOC: M SFHCPLAZ 10:01
PROVIDERS: ATTEND Family Medicine
DX: I50.32 Chronic diastolic (congestive) heart failure (principal); R73.01 Impaired fasting glucose; E55.9 Vitamin D deficiency, unspecified; D50.9 Iron deficiency anemia, unspecified

== ENCOUNTER 2019-10-01 10:53 | Emergency (ER) | payer MEDICARE, MEDICAID ==
[~2019-10-01] VITALS: Ht 170.2 cm; Wt 59.7 kg
[2019-10-01] MEDS ORDERED: CELL500T PO (11:57)
[2019-10-01] MEDS ORDERED: PRED10TA2 PO (11:57)
[2019-10-01] MEDS ORDERED: FURO40TA2 PO (12:03)
[2019-10-01] MEDS ORDERED: QUET1TAB7 PO (12:03)
[2019-10-01 14:24] LABS: BASO % 0.2 % (0.0-1.0); EOS % 0.2 % (0.0-3.0); HEMATOCRIT 36.2 % (36.0-47.0); HEMOGLOBIN 10.9 g/dl (12.0-15.5); LYMPH # 1.2 10^3/uL (1.5-5.0); LYMPH % 9.6 % (24.0-44.0); MEAN CORPUSCULAR HEMOGLOBIN 25.9 pg (27.0-33.0); MEAN CORPUSCULAR HGB CONC 30.1 g/dl (32.0-36.5); MONO # 0.7 10^3/uL (0.0-0.8); MONO % 5.5 % (0.0-5.0); NEUTROPHILS # 10.8 10^3/uL (1.5-8.5); PLATELET COUNT, AUTOMATED 414 10^3/uL (150-450); RED BLOOD COUNT 4.21 10^6/uL (4.00-5.40); WHITE BLOOD COUNT 12.8 10^3/uL (4.0-10.0)
[2019-10-01 14:48] LABS: ALT/SGPT 23 U/L (12-78); BILIRUBIN,DIRECT < 0.1 MG/DL (0.0-0.2); BILIRUBIN,TOTAL 0.4 MG/DL (0.2-1.0); LIPASE 296 U/L (73-393); TOTAL PROTEIN 6.9 GM/DL (6.4-8.2)
--- NOTE | 2019-10-01 15:19 | REP ---
RIGHT RIB SERIES WITH PA CHEST X-RAY: FIVE VIEWS. HISTORY: Right rib pain. The patient status post fall. FINDINGS: The lungs are symmetrically aerated and clear. Pleural angles are sharp. Heart is not enlarged. Aorta is calcific and tortuous. Multiple views of the right ribcage show diffuse osteopenia. There are clips in the right upper quadrant of the abdomen, and mild osteoarthritic spurring is seen at the shoulder. No rib fracture or bony destructive rib lesion is appreciated. IMPRESSION: No rib fracture seen. Diffuse osteopenia. Electronically Signed by Davin Lemus MD 10/01/2019 06:56 P
--- NOTE | 2019-10-01 16:53 | REP ---
CT abdomen and pelvis without IV or oral contrast: History: Injury in a fall. Trauma. Findings: Preliminary digital professional builder radiograph demonstrates clips in right upper quadrant, bilateral hip arthroplasties, and a normal bowel gas pattern. The lung bases are essentially clear on axial CT images. The liver and the spleen are normal in size homogeneous in texture. Normal adrenals are noted bilaterally. No abnormalities noted in the pancreas. The gallbladder is surgically absent. The kidneys are morphologically intact. No retroperitoneal hematoma or mass is seen. The small and large bowel loops are unremarkable. The appendix is surgically absent as is the uterus. There is a small low-density cyst in the right pelvis consistent with a right ovarian cyst. This measures 2.3 cm in greatest diameter. There is spray artifact across the pelvic images from the hip prostheses. No pelvic mass lesion is seen. Small and large intestinal bowel loops are unremarkable. Bone window settings show no evidence of collapse or fracture. Impression: No traumatic abnormality noted. Status post cholecystectomy, appendectomy, hysterectomy, and bilateral hip arthroplasties. 2.3 cm cysts right pelvis consistent with right ovarian cyst. No acute abnormality. Electronically Signed by Davin Lemus MD 10/01/2019 06:57 P
[2019-10-01] MEDS ORDERED: ACETAMINOPHEN 500 MG TAB PO ONE (17:15)
[2019-10-01 17:18] VITALS: BP 112/59
== END 2019-10-01 17:29 | disposition home or self-care (01) ==
LOC: M ED 10:53
DX: S20.219A Contusion of unspecified front wall of thorax, initial encounter (principal); S33.5XXA Sprain of ligaments of lumbar spine, initial encounter; W01.190A Fall on same level from slipping, tripping and stumbling with subsequent striking against furniture, initial encounter; Y92.019 Unspecified place in single-family (private) house as the place of occurrence of the external cause; M85.88 Other specified disorders of bone density and structure, other site; N83.291 Other ovarian cyst, right side; I11.9 Hypertensive heart disease without heart failure; K21.9 Gastro-esophageal reflux disease without esophagitis; J44.9 Chronic obstructive pulmonary disease, unspecified; Z86.73 Personal history of transient ischemic attack (TIA), and cerebral infarction without residual deficits; N32.81 Overactive bladder; G70.00 Myasthenia gravis without (acute) exacerbation; Z96.643 Presence of artificial hip joint, bilateral; Z90.49 Acquired absence of other specified parts of digestive tract; Z90.89 Acquired absence of other organs; Z88.9 Allergy status to unspecified drugs, medicaments and biological substances; Z91.041 Radiographic dye allergy status; Z88.0 Allergy status to penicillin; Z88.2 Allergy status to sulfonamides; Z88.1 Allergy status to other antibiotic agents; Z79.82 Long term (current) use of aspirin; Z79.899 Other long term (current) drug therapy

== ENCOUNTER → 2019-10-16 | Outpatient (REF) | payer MEDICARE, MEDICAID ==
[~2019-10-16] MED LIST changes: +CELL500T PO; +FURO40TA2 PO; +PRED10TA2 PO; +QUET1TAB7 PO
[2019-10-16 12:18] LABS: BASO % 0.5 % (0.0-1.0); EOS # 0.1 10^3/uL (0.0-0.5); EOS % 1.4 % (0.0-3.0); HEMOGLOBIN 10.6 g/dl (12.0-15.5); LYMPH # 1.5 10^3/uL (1.5-5.0); LYMPH % 17.8 % (24.0-44.0); MEAN CORPUSCULAR HEMOGLOBIN 25.8 pg (27.0-33.0); MEAN CORPUSCULAR HGB CONC 29.4 g/dl (32.0-36.5); MEAN CORPUSCULAR VOLUME 87.6 fl (80.0-96.0); MONO # 0.7 10^3/uL (0.0-0.8); MONO % 8.9 % (0.0-5.0); NEUTROPHILS # 5.9 10^3/uL (1.5-8.5); NEUTROPHILS % 70.9 % (36.0-66.0); PLATELET COUNT, AUTOMATED 415 10^3/uL (150-450); RED BLOOD COUNT 4.11 10^6/uL (4.00-5.40); WHITE BLOOD COUNT 8.3 10^3/uL (4.0-10.0)
== END ==
LOC: M SFHCPLAZ 10:10
PROVIDERS: ATTEND Nurse Practitioner Family
DX: K64.9 Unspecified hemorrhoids (principal)

== ENCOUNTER 2019-11-07 15:25 | Emergency (ER) | payer MEDICARE, MEDICAID ==
[~2019-11-07] VITALS: Ht 167.6 cm; Wt 59.5 kg
[2019-11-07 15:25] VITALS: BP 116/57
[2019-11-07] MEDS ORDERED: ESOM1CAP5 PO (15:39)
--- NOTE | 2019-11-07 16:13 | REP ---
Clinical: Trauma. Technique: AP, lateral, bilateral oblique views of the left wrist. Findings: Comminuted fractures of the distal radius and ulna with posterior displacement of the fracture fragments is appreciated with overlying soft tissue swelling. The carpal bones are grossly intact and normal. Impression: Comminuted fractures of the distal radius and ulna with posterior displacement. Electronically Signed by Swapnil Zendejas MD 11/07/2019 04:04 P
[2019-11-07] MEDS ORDERED: NS 500 ML IV ONE (17:30)
[2019-11-07] MEDS ORDERED: LIDOCAINE 2% MDV 20 ML VIAL SC ONE (17:30)
[2019-11-07] MEDS ORDERED: MORPHINE 2 MG/ML 1ML VIAL (J2270) IV ONE (18:00)
[2019-11-07] MEDS ORDERED: LIDOCAINE 1% MDV 20ML VIAL SC ONE (18:00)
[2019-11-07] MEDS ORDERED: TYLETAB14 PO (20:30)
--- NOTE | 2019-11-07 20:47 | ECGEPIP ---
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 Order Number: [id number] Reading MD: Wagner Kirkpatrick Measurements Intervals [place]man Rate: 66 P: 97 IN: 202 QRS: -9 QRSD: 86 T: 31 QT: 395 QTc: 414 Interpretive Statements SINUS RHYTHM WITH SINUS ARRHYTHMIA POOR R WAVE PROGRESSION NSTTW ABNORMALITIES SIMILAR TO 10/10/17 Electronically Signed on 11-07-2019 20:47:11 EST by Wagner Kirkpatrick
--- NOTE | 2019-11-08 08:09 | REP ---
Left wrist series: Three views. History: Post reduction. Comparison study is from 3:59 p.m. on this same date. Findings: Three views are obtained through overlying cast material. An impacted comminuted distal radial fracture is again seen. The dorsal displacement is resolved. Alignment is improved. Distal ulnar fracture is again noted essentially unchanged. Electronically Signed by Davin Lemus MD 11/08/2019 10:28 A
--- NOTE | 2019-11-08 08:11 | REP ---
Left wrist series: 12 views. History: Intraprocedural imaging. 12 seconds of fluoroscopy time is reported. Findings: A sequence of 12 last image hold fluoroscopically obtained spot radiographs of the left wrist document closed reduction of distal radial and ulnar fracture. Electronically Signed by Davin Lemus MD 11/08/2019 10:28 A
--- NOTE | 2019-11-08 10:10 | CR ---
DATE OF CONSULTATION: 11/07/2019 INDICATION: Left wrist fracture. HISTORY OF PRESENT ILLNESS: Jacqui is an 79-year-old, [id number] female, a cane ambulator, who suffered a mechanical fall earlier today landing on her outstretched left arm. She had immediate pain and deformity. She suffered abrasions to the DIP joints, but otherwise no open wounds. She denied numbness or tingling. The pain was overall rated at mild despite the deformity. X-rays revealed a significantly displaced and comminuted distal radius and ulna fracture. Past medical history is notable for coronary artery disease with myocardial infarction on Xarelto. For the rest of the patient's full past medical history, past surgical history, medications, allergies, social history and review of systems, please see the ER intake form which was reviewed. PHYSICAL EXAMINATION: Reveals an elderly female in no distress. She was alert and oriented x3. She answered all questions appropriately. She was pleasant to talk to. Pulmonary: Nonlabored breathing. Cardiovascular: 2+ radial pulse. Skin: There are superficial abrasions over the DIP joints of the index and long fingers. No open wounds at the wrist. Musculoskeletal: There is an obvious deformity at the left wrist consistent with a distal radial fracture. She was able to fire EPL, FPL and IO. Sensation to light touch grossly intact. Of note, there is a transverse incision over the dorsal aspect of the radial carpal joint. The patient does not recall any surgery, but there is a clear well-healed incision. The patient had no pain or swelling in her forearm. The elbow was nontender. X-rays of the left wrist from [facility] ER revealed an extensively comminuted fracture of the distal radius as well as a fracture of the distal ulna with significant shortening and angulation. ASSESSMENT/PLAN: Jacqui Little is an 79-year-old female with a badly displaced distal left ulna and radial fracture. I had a long conversation with the patient and her son about operative and nonoperative treatment. This is her nondominant arm. I recommended a closed reduction and hematoma block and casting and, if we could obtain successful alignment, then trying to treat this with a cast. We did discuss external fixation versus open reduction internal fixation with plate and screws. Neither of them were interested in surgery and I agreed. The risks and benefits of the closed reduction and casting of her fracture was discussed and written informed consent obtained. PROCEDURE NOTE: The left wrist was marked. We confirmed the patient's name and medical record number. She received 2 mg of IV morphine. Using sterile technique, I prepped the dorsal aspect of the wrist with chlorhexidine and then I injected a total of 12 mL of 1% lidocaine without epinephrine. Ten mL when into the distal radius fracture via dorsal approach per hematoma block technique. The other 2 mL went into the distal ulna fracture. The medication was allowed to set for 5 minutes. I then confirmed acceptable analgesia. I then applied traction and counter traction to fatigue the musculature. I then performed a closed reduction by exaggerating the deformity, applying distal traction and ulnar deviation and a posterior to anterior force on the distal radial fragment. Successful reduction was heard and felt. The patient was then placed into a well-padded short-arm fiberglass cast and I applied a vigorous three-point mold with axial traction, ulnar deviation and palmar translation of the carpus. Once the cast was set, I obtained postreduction x-rays on the C-arm. This showed excellent alignment on the lateral view, essentially neutral angulation and on AP view dramatically improved radial height and inclination. We got formal post reduction x-rays which show maintained fracture reduction on the lateral view. The angle of the x-ray beam on AP was suboptimal creating the appearance of significant radial shortening, but based on the lateral view and C-arm films there is dramatically improved radial height and inclination. We discussed signs and symptoms of acute carpal tunnel syndrome. I discussed the importance of elevation and keeping the cast clean, dry and intact. The patient will follow up with one of my physician assistants in one week, get x-rays in the cast and show them to the one my partners to make sure there is still acceptable alignment. She will then follow up with me a week later and we will again get repeat x-rays in the cast. The ER provided a script for Tylenol with codeine. I should have mentioned that the patient is on Xarelto. All the patient and son's questions were answered to their satisfaction.
== END 2019-11-07 21:02 | disposition home or self-care (01) ==
LOC: M ED 15:25
DX: S52.501A Unspecified fracture of the lower end of right radius, initial encounter for closed fracture (principal); S52.251A Displaced comminuted fracture of shaft of ulna, right arm, initial encounter for closed fracture; W00.0XXA Fall on same level due to ice and snow, initial encounter; Y92.9 Unspecified place or not applicable; R94.31 Abnormal electrocardiogram [ECG] [EKG]; G70.00 Myasthenia gravis without (acute) exacerbation; Z88.0 Allergy status to penicillin; Z88.1 Allergy status to other antibiotic agents; Z88.2 Allergy status to sulfonamides; Z91.041 Radiographic dye allergy status; Z88.8 Allergy status to other drugs, medicaments and biological substances; Z79.82 Long term (current) use of aspirin; Z79.899 Other long term (current) drug therapy
CPT/HCPCS: 25605; 73100; 73110; 93005; 96372; 96374; 99284; J2270

== ENCOUNTER → 2019-11-22 | Outpatient (REF) | payer MEDICARE, MEDICAID ==
[~2019-11-22] MED LIST changes: +ESOM1CAP5 PO; +TYLETAB14 PO
[2019-11-22 12:57] LABS: BASO % 0.5 % (0.0-1.0); EOS # 0.1 10^3/uL (0.0-0.5); EOS % 1.4 % (0.0-3.0); HEMATOCRIT 34.8 % (36.0-47.0); HEMOGLOBIN 10.4 g/dl (12.0-15.5); LYMPH # 0.9 10^3/uL (1.5-5.0); LYMPH % 10.2 % (24.0-44.0); MEAN CORPUSCULAR HEMOGLOBIN 26.6 pg (27.0-33.0); MEAN CORPUSCULAR HGB CONC 29.9 g/dl (32.0-36.5); MONO # 0.6 10^3/uL (0.0-0.8); MONO % 7.2 % (0.0-5.0); NEUTROPHILS % 80.2 % (36.0-66.0); PLATELET COUNT, AUTOMATED 513 10^3/uL (150-450); RED BLOOD COUNT 3.91 10^6/uL (4.00-5.40); WHITE BLOOD COUNT 8.7 10^3/uL (4.0-10.0)
[2019-11-22 13:02] LABS: ALBUMIN 3.6 GM/DL (3.2-5.2); ALT/SGPT 20 U/L (12-78); BILIRUBIN,TOTAL 0.3 MG/DL (0.2-1.0); BLOOD UREA NITROGEN 15 MG/DL (7-18); CALCIUM LEVEL 8.2 MG/DL (8.8-10.2); CARBON DIOXIDE LEVEL 32 MEQ/L (21-32); CHLORIDE LEVEL 107 MEQ/L (98-107); CREATININE FOR GFR 0.83 MG/DL (0.55-1.30); GLOMERULAR FILTRATION RATE > 60.0 (>32); GLUCOSE, FASTING 95 MG/DL (70-100); NT-PRO BNP 274 PG/ML (<450); POTASSIUM SERUM 3.6 MEQ/L (3.5-5.1); SODIUM LEVEL 143 MEQ/L (136-145); TOTAL PROTEIN 6.4 GM/DL (6.4-8.2)
[2019-11-22 13:11] LABS: PTH INTACT 216.7 PG/ML (18.5-88.0); TOTAL 25(OH) VITAMIN D 96.4 NG/ML (30.0-100.0)
[2019-11-22 14:08] LABS: HEMOGLOBIN A1c 5.8 %
== END ==
LOC: M SFHCPLAZ 10:24
PROVIDERS: ATTEND Family Medicine
DX: D50.9 Iron deficiency anemia, unspecified (principal); E55.9 Vitamin D deficiency, unspecified; R73.01 Impaired fasting glucose; I48.0 Paroxysmal atrial fibrillation; I50.32 Chronic diastolic (congestive) heart failure
CPT/HCPCS: 36415; 80053; 82306; 83036; 83880; 83970; 85025; 85046; G0463

== ENCOUNTER → 2019-11-27 | Outpatient (CLI) | payer MEDICARE, MEDICAID ==
--- NOTE | 2019-11-27 11:49 | REPPI ---
LUMBAR SPINE SERIES: Three views. HISTORY: Hip osteoarthritis. Upright lateral views. FINDINGS: Lumbar vertebral body heights are preserved. Alignment is normal. There is disc space narrowing at L4-5. Slight disc space narrowing is seen and L2-3 and L3-4. There is discogenic spurring at the thoracolumbar junction. Bilateral hip prosthesis sees are noted. Pedicles and posterior elements are intact. There is diffuse osteopenia. There are surgical clips in right upper quadrant and sutures are visible to the right of midline overlying the sacrum on the frontal view. There is no evidence of spondylolysis or spondylolisthesis. IMPRESSION: Degenerative spondylosis changes. Diffuse osteopenia. Electronically Signed by Davin Lemus MD 11/27/2019 12:56 P
--- NOTE | 2019-11-27 11:51 | REPPI ---
PELVIS BILATERAL HIP STUDY: Five views. HISTORY: Hip osteoarthritis. FINDINGS: AP and frog-leg views of both hips and AP of the pelvis demonstrate bilateral total hip arthroplasties in position. There is minimal heterotopic bone formation adjacent to the greater trochanter on the right. There is diffuse osteopenia. The bony pelvic ring is intact. The prosthetic hip joints are normally aligned. Sacrum and SI joints are intact. Symphysis pubis is unremarkable. The visualized bowel gas pattern is normal. IMPRESSION: There is some diffuse osteoporosis. Status post bilateral hip arthroplasties. No acute abnormality. Unreviewed
== END ==
LOC: M PLAIMG 09:14
PROVIDERS: ATTEND Family Medicine
DX: M16.9 Osteoarthritis of hip, unspecified (principal)

== ENCOUNTER → 2020-02-28 | Outpatient (REF) | payer MEDICARE, MEDICAID ==
[2020-02-28 17:44] LABS: ALBUMIN 3.6 GM/DL (3.2-5.2); ALT/SGPT 19 U/L (12-78); BILIRUBIN,TOTAL 0.3 MG/DL (0.2-1.0); BLOOD UREA NITROGEN 11 MG/DL (7-18); CALCIUM LEVEL 8.3 MG/DL (8.8-10.2); CARBON DIOXIDE LEVEL 29 MEQ/L (21-32); CHLORIDE LEVEL 106 MEQ/L (98-107); CREATININE FOR GFR 0.92 MG/DL (0.55-1.30); GLOMERULAR FILTRATION RATE > 60.0 (>32); GLUCOSE, FASTING 92 MG/DL (70-100); POTASSIUM SERUM 4.3 MEQ/L (3.5-5.1); SODIUM LEVEL 139 MEQ/L (136-145); TOTAL PROTEIN 6.3 GM/DL (6.4-8.2)
[2020-02-28 17:45] LABS: FREE T4 1.05 NG/DL (0.76-1.46); MAGNESIUM LEVEL 2.2 MG/DL (1.8-2.4); NT-PRO BNP 480 PG/ML (<450); THYROID STIMULATING HORMONE 0.701 uIU/ML (0.358-3.740)
[2020-02-28 17:47] LABS: VITAMIN B12 LEVEL 565 PG/ML (247-911)
== END ==
LOC: M SFHCPLAZ 14:21
PROVIDERS: ATTEND Family Medicine
DX: I50.32 Chronic diastolic (congestive) heart failure (principal); E78.2 Mixed hyperlipidemia; D50.9 Iron deficiency anemia, unspecified
CPT/HCPCS: 36415; 80053; 82607; 83735; 83880; 84439; 84443; G0463

== ENCOUNTER 2020-06-16 21:44 | Inpatient (IN) | payer MEDICARE, MEDICAID ==
[~2020-06-16] VITALS: Ht 165.1 cm; Wt 55.5 kg
[~2020-06-16 21:44] MED LIST changes: -ACET325C5 PO; -ASPI-161 PO; -ASPI81CH33 PO; -BUDE3CAP PO; -CALC600T18 PO; -ESOM40CA35 PO; -NYST10CR TOP; -PANT40TA29 PO; -PREG50CA PO; -TUMS500C PO; -VALG1TAB PO; -VITA50005 PO
[2020-06-16] MEDS ORDERED: PREG50CA PO (21:59)
--- NOTE | 2020-06-16 22:42 | REPVR ---
PROCEDURE INFORMATION: Exam: XR Chest, 1 View Exam date and time: 06/16/2020 10:07 PM Age: 79 years old Clinical indication: Shortness of breath; Additional info: Chest pain TECHNIQUE: Imaging protocol: XR of the chest Views: 1 view. COMPARISON: CR Ribs uni W-PA CHEST ONLY 10/01/2019 1:42 PM FINDINGS: Lungs: Degree of lung inflation is normal. No evidence of pulmonary edema. No focal consolidation or parenchymal lung mass. Pleural space: No pleural effusion or pneumothorax. Heart/Mediastinum: Cardiac silhouette appears normal. No adenopathy or hilar mass. Bones/joints: Osseous structures show no concerning abnormality. IMPRESSION: No acute or focal cardiopulmonary process. Electronically signed by: Brody Foster On 06/16/2020 22:42:16 PM
[2020-06-16 23:05] LABS: BASO % 0.1 % (0.0-1.0); EOS % 0.2 % (0.0-3.0); HEMATOCRIT 21.3 % (36.0-47.0); LYMPH # 2.1 10^3/uL (1.5-5.0); LYMPH % 23.6 % (24.0-44.0); MEAN CORPUSCULAR HEMOGLOBIN 21.3 pg (27.0-33.0); MEAN CORPUSCULAR HGB CONC 28.2 g/dl (32.0-36.5); MEAN CORPUSCULAR VOLUME 75.5 fl (80.0-96.0); MONO # 0.9 10^3/uL (0.0-0.8); MONO % 10.5 % (0.0-5.0); NEUTROPHILS # 5.7 10^3/uL (1.5-8.5); NEUTROPHILS % 64.7 % (36.0-66.0); PLATELET COUNT, AUTOMATED 502 10^3/uL (150-450); RED BLOOD COUNT 2.82 10^6/uL (4.00-5.40); WHITE BLOOD COUNT 8.8 10^3/uL (4.0-10.0)
[2020-06-16 23:28] LABS: BLOOD UREA NITROGEN 13 MG/DL (7-18); CALCIUM LEVEL 8.2 MG/DL (8.8-10.2); CARBON DIOXIDE LEVEL 30 MEQ/L (21-32); CHLORIDE LEVEL 103 MEQ/L (98-107); CK-MB VALUE MASS < 1.0 NG/ML (<3.6); CPK CREATINE PHOSPHOKINASE 62 U/L (26-192); GLOMERULAR FILTRATION RATE > 60.0 (>32); GLUCOSE, FASTING 86 MG/DL (70-100); MB/CK RELATIVE INDEX 1.61 (< OR =4); POTASSIUM SERUM 3.1 MEQ/L (3.5-5.1); SODIUM LEVEL 138 MEQ/L (136-145); TROPONIN I < 0.02 NG/ML (< 0.10)
[2020-06-17] VITALS (22 sets, daily range): BP systolic 100–126; BP diastolic 43–71
[2020-06-17] MEDS ORDERED: FURO40TA2 PO (00:29)
[2020-06-17] MEDS ORDERED: PREG50CA PO (00:29)
[2020-06-17] MEDS ORDERED: QUET1TAB7 PO (00:29)
[2020-06-17] MEDS ORDERED: ASPI-161 PO (00:29)
[2020-06-17] MEDS ORDERED: CALC600T18 PO (00:29)
[2020-06-17] MEDS ORDERED: VITA50005 PO (00:29)
[2020-06-17] MEDS ORDERED: METO1TAB87 PO (00:29)
[2020-06-17] MEDS ORDERED: MEST60TA PO (00:29)
[2020-06-17] MEDS ORDERED: NEXI40CA PO (00:29)
[2020-06-17] MEDS ORDERED: CELL500T PO (00:29)
[2020-06-17] MEDS ORDERED: PRED20TA PO (00:29)
[2020-06-17] MEDS ORDERED: XARE20TA PO (00:29)
[2020-06-17] MEDS ORDERED: ACETAMINOPHEN TAB 650MG DOSE (2X325MG) PO PRN (00:30)
--- NOTE | 2020-06-17 00:39 | HPEPDOC ---
[facility] Medical History & Physical Date of Admission Jun 16, 2020 Date of Service: Jun 16, 2020 Primary Care Physician: Wali Ramsey M.D. Attending Physician: LINDA MAGANA DO History and Physical CHIEF COMPLAINT: Sent from Dr. Ramsey's office for anemia HISTORY OF PRESENT ILLNESS: Jacqui Little is an 79-year-old female with history of myasthenia gravis, paroxysmal atrial fibrillation on Xarelto who presents to the ED after her primary care provider found low hemoglobin earlier today. The patient reports that for the past 2-3 days she has been feeling more fatigued and lightheaded. She has noticed bright red blood per rectum each time she has had a bowel movement. She has also had very painful bowel movements due to known history of hemorrhoids. She reports that she has previously had her hemorrhoids ligated several times in the past. Recently she noticed that her hemorrhoids if larger and more painful. She denies any black tarry stools, or maroon-colored stools, only bright red blood that drips into the toilet after her bowel movements. Her bowel movements have been soft recently. Otherwise she denies any shortness of breath, chest pain, palpitations. She also denies any nausea, vomiting, hematemesis or hemoptysis. She has been taking all medications as prescribed. She does also report somewhat worsening lower extremity edema. Her son Costa is present on admission and assists in providing history as the patient is hard of hearing. 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 REVIEW OF SYSTEMS: Constitutional: No Weight Change, No Fever, No Chills, No Night Sweats, ports fatigue ENT/Mouth: No Hearing Changes, No Ear Pain, No Nasal Congestion, No Sinus Pain, No Hoarseness, No sore throat, No Rhinorrhea, No Swallowing Difficulty Eyes: No Eye Pain, No Swelling, No Redness, No Foreign Body, No Discharge, No Vision Changes Cardiovascular: No Chest Pain, No SOB, No PND, No Dyspnea on Exertion, No Orthopnea, No Claudication, No Edema, No Palpitations Respiratory: No Cough, No Wheezing, No Smoke Exposure, No Dyspnea Gastrointestinal: No Nausea, No Vomiting, soft stools reported, no constipation, pain with bowel movements, bright red blood per rectum with bowel movements Genitourinary: No Dysmenorrhea, No DUB, No Dyspareunia, No Dysuria Musculoskeletal: No Arthralgias, No Myalgias, No Joint Swelling, No Joint Stiffness, No Back Pain, No Neck Pain, No Injury History Skin: No Skin Lesions, No Pruritis, No Hair Changes, No Breast/Skin Changes, No Nipple Discharge Neuro: No Weakness, No Numbness, No Paresthesias, No Loss of Consciousness, No Syncope, No Dizziness, No Headache, No Coordination Changes, No Recent Falls Psych: No Anxiety/Panic, No Depression, No Insomnia, No Personality Changes, No Delusions Heme/Lymph: No Bruising, No Bleeding, No Transfusions History, No Lymphadenopathy Endocrine: No Polyuria, No Polydipsia, No Temperature Intolerance HOME MEDICATIONS: Please see below. VITAL SIGNS: see below GENERAL: alert and oriented, in no apparent distress, pleasant and conversant in full sentences. HEENT: PERRL, EOMI, Oral mucous membranes are moist without lesions, normocephalic, atraumatic NECK: The patient has no noted JVD. No adenopathy is appreciated. No thyromegaly CHEST/LUNGS: Lungs are clear bilaterally without rhonchi, rales, or wheezes. There is no subcutaneous air appreciated. There is no tenderness to the chest wall. HEART: Regular rate and rhythm. No murmurs, rubs, or gallops are appreciated. Distal pulses are 2+. No carotid bruits appreciated. ABDOMEN: Soft, lightly tender to palpation in all 4 quadrants. Bowel sounds are positive. No organomegaly is appreciated. No masses are appreciated. There are no peritoneal signs. There is no Prescott sign. RECTAL: several medium-sized hemorrhoids present, no active bleeding EXTREMITIES: No peripheral edema. There is no focal long bone tenderness or deformity. SKIN: The patients skin is warm and dry, without rashes or lesions. PSYCHIATRIC: AAO x 3, normal mood/affect NEUROLOGIC: The patient has 5/5 strength to the upper and lower extremities bilaterally. Sensation is intact throughout. Deep tendon reflexes are 2+ in all four extremities. There are no deficits to the cranial nerves. LABORATORY DATA: See below. IMAGING: CXR: FINDINGS: Lungs: Degree of lung inflation is normal. No evidence of pulmonary edema. No focal consolidation or parenchymal lung mass. Pleural space: No pleural effusion or pneumothorax. Heart/Mediastinum: Cardiac silhouette appears normal. No adenopathy or hilar mass. Bones/joints: Osseous structures show no concerning abnormality. IMPRESSION: No acute or focal cardiopulmonary process. MICROBIOLOGY: Please see below. ASSESSMENT: This is an 79-year-old female with myasthenia gravis, paroxysmal atrial fibrillation on Xarelto who presents to the ED after primary care physician found her to be anemic in the setting of ongoing possible hemorrhoidal bleed. PLAN: 1. Symptomatic Anemia secondary to possible bleeding hemorrhoids: -Hemoglobin found to be 6.0. 1 unit PRBC ordered an ED. Will order additional 1 unit. Hgb goal >7 -Consider consultation with GI or surgery in AM. -Holding Xarelto for now 2. Paroxysmal atrial fibrillation: -Continuous telemetry -Patient is in normal sinus rhythm per EKG on admission. -Holding Xarelto as stated above -Continue home metoprolol 25 mg BID 3. History of myasthenia gravis: No signs of acute myasthenia crisis. -Continue home CellCept -Continue home prednisone 20 mg daily. Unsure of whether patient is on daily Prednisone at this point. If so, she will need PCP prophylaxis. -Continue home pyridostigmine bromide 60 mg 4 times a day 4. Mood disorder/Chronic pain: -Continue Seroquel, Lyrica 5. Lower extremity edema: likely 2/2 increased fluid intake -Last Echocardiogram done 01/2019 demonstrates normal LVEF 60-65% and normal systolic/diastolic function, normal pulmonary artery pressure -Will continue home Lasix 40mg daily Ms. Little's son, Costa, has requested updates on the patient periodically. He can be reached at DVT ppx: TEDs/SCDs GI ppx: Protonix Vital Signs Vital Signs Date Time Temp Pulse Resp B/P (MAP) Pulse Ox O2 Delivery O2 Flow Rate FiO2 06/16/20 21:46 98.1 65 16 123/57 (79) 100 Room Air Laboratory Data Labs 24H Laboratory Tests 2 06/16/20 22:58: Immature Granulocyte % (Auto) 0.9, Neutrophils (%) (Auto) 64.7, Lymphocytes (%) (Auto) 23.6L, Monocytes (%) (Auto) 10.5H, Eosinophils (%) (Auto) 0.2, Basophils (%) (Auto) 0.1, Neutrophils # (Auto) 5.7, Lymphocytes # (Auto) 2.1, Monocytes # (Auto) 0.9H, Eosinophils # (Auto) 0.0, Basophils # (Auto) 0.0, Nucleated Red Blood Cells % (auto) 0.0, Anion Gap 5L, Glomerular Filtration Rate > 60.0, Calcium Level 8.2L, Total Creatine Kinase 62, Creatine Kinase MB < 1.0, Creatine Kinase MB Relative Index 1.61, Troponin I < 0.02, RB-Bar-H-Type Natriuretic Peptide 540H CBC/BMP Laboratory Tests 06/16/20 22:58 Home Medications Scheduled Aspirin (Aspirin EC) 81 Mg Tablet.dr, 81 MG PO QHS Calcium Carbonate/Vitamin D3 (Calcium 600-Vit D3 400 Tablet) 1 Each Tablet, 1 TAB PO BID Ergocalciferol (Vitamin D2) (Vitamin D2) 50,000 Units Cap, 50,000 UNITS PO 1XWK ZANE Esomeprazole Magnesium (Nexium) 40 Mg Capsule.dr, 40 MG PO DAILY Furosemide (Furosemide) 40 Mg Tablet, 40 MG PO DAILY Metoprolol Tartrate (Metoprolol Tartrate) 25 Mg Tablet, 25 MG PO BID Mycophenolate Mofetil (Cellcept) 500 Mg Tablet, 1,000 MG PO BID Prednisone (Prednisone) 20 Mg Tablet, 20 MG PO DAILY STARTED ON 06/09/2020 Pregabalin (Lyrica) 50 Mg Capsule, 50 MG PO BID Pyridostigmine [place] (Mestinon) 60 Mg Tablet, 60 MG PO QID Quetiapine Fumarate (Quetiapine Fumarate) 25 Mg Tablet, 25 MG PO QHS Rivaroxaban (Xarelto) 20 Mg Tablet, 20 MG PO QHS Allergies Coded Allergies: Contrast Media (Verified Allergy, Severe, cant breathe, 02/05/19) Penicillins (Verified Allergy, Severe, anaphlaxis, 02/05/19) cephalexin (Verified Allergy, Severe, anaphylaxis, 02/05/19) Sulfa (Sulfonamide Antibiotics) (Verified Allergy, Intermediate, rash, h namita, 02/05/19) levofloxacin (Verified Allergy, Intermediate, hives, 02/05/19) Antihistamines - Alkylamine (Verified Allergy, Mild, rash, 02/05/19) nitrofurantoin (Verified Adverse Reaction, Intermediate, parasthesis, 02/05/19) clarithromycin (Verified Adverse Reaction, Mild, dyspepsia, 02/05/19) doxycycline (Verified Adverse Reaction, Mild, N/V, 02/05/19) famotidine (Verified Adverse Reaction, Mild, Vomiting, 02/05/19) meloxicam (Verified Adverse Reaction, Mild, N/V, 02/05/19) A-FIB/CHADSVASC A-FIB History Current/History of A-Fib/PAF?: Yes Current PO Anticoag Therapy: Yes GME ATTESTATION GME ATTESTATION My faculty preceptor for this patient encounter was physically present during the encounter and was fully available. All aspects of the patient interview, examination, medical decision making process, and medical care plan development were reviewed and approved by the faculty preceptor. The faculty preceptor is aware and concurs with the plan as stated in the body of this note and will attest to such by his/her cosignature. STEVE WAKEFIELD MD Jun 16, 2020 23:34 LINDA MAGANA DO Jun 17, 2020 06:33
[2020-06-17] MEDS: POTASSIUM CHLORIDE 10 MEQ SR TABLET PO SCH ×2 (02:43→03:51)
[2020-06-17] MEDS: QUEtiapine FUMARATE 25 MG TAB PO SCH ×2 (02:44→21:31)
[2020-06-17] MEDS: PREGABALIN 50 MG CAP (LYRICA) PO SCH ×3 (02:44→21:31)
[2020-06-17] MEDS: METOPROLOL TART 25 MG TABLET PO SCH ×3 (02:46→21:32)
[2020-06-17] MEDS: PYRIDOSTIGMINE 60 MG TAB PO SCH ×5 (02:46→21:31)
[2020-06-17] MEDS: MYCOPHENOLATE MOFETIL 250 MG CAP (J7517) PO SCH ×3 (02:46→21:31)
[2020-06-17] MEDS ORDERED: FUROSEMIDE 40 MG TAB PO SCH (09:00)
[2020-06-17 09:13] LABS: BASO % 0.3 % (0.0-1.0); EOS # 0.1 10^3/uL (0.0-0.5); HEMATOCRIT 27.8 % (36.0-47.0); HEMOGLOBIN 8.7 g/dl (12.0-15.5); LYMPH # 1.8 10^3/uL (1.5-5.0); LYMPH % 24.7 % (24.0-44.0); MEAN CORPUSCULAR HEMOGLOBIN 24.2 pg (27.0-33.0); MEAN CORPUSCULAR HGB CONC 31.3 g/dl (32.0-36.5); MEAN CORPUSCULAR VOLUME 77.2 fl (80.0-96.0); MONO # 0.8 10^3/uL (0.0-0.8); NEUTROPHILS # 4.5 10^3/uL (1.5-8.5); NEUTROPHILS % 62.3 % (36.0-66.0); PLATELET COUNT, AUTOMATED 462 10^3/uL (150-450); WHITE BLOOD COUNT 7.2 10^3/uL (4.0-10.0)
[2020-06-17] MEDS: predniSONE 20 MG TAB PO SCH (09:14)
[2020-06-17] MEDS: PANTOPRAZOLE 40MG TAB (PROTONIX) PO SCH (09:14)
[2020-06-17 09:24] LABS: ALBUMIN 2.7 GM/DL (3.2-5.2); ALT/SGPT 13 U/L (12-78); BILIRUBIN,TOTAL 1.3 MG/DL (0.2-1.0); BLOOD UREA NITROGEN 10 MG/DL (7-18); CALCIUM LEVEL 7.7 MG/DL (8.8-10.2); CARBON DIOXIDE LEVEL 27 MEQ/L (21-32); CHLORIDE LEVEL 111 MEQ/L (98-107); CREATININE FOR GFR 0.74 MG/DL (0.55-1.30); GLOMERULAR FILTRATION RATE > 60.0 (>32); GLUCOSE, FASTING 79 MG/DL (70-100); POTASSIUM SERUM 3.8 MEQ/L (3.5-5.1); SODIUM LEVEL 143 MEQ/L (136-145)
--- NOTE | 2020-06-17 09:43 | ECGEPIP ---
[facility] - ED Test Date: 2020-06-16 Pat Name: COLBY MULLER Department: Room: [place] [address] Gender: Female Independent Living Specialist: FRANSISCO : 1940 Requested By: LUKASZ Tovar Order Number: [id number] Reading MD: Wagner Kirkpatrick Measurements Intervals [place] Rate: 60 P: 91 VT: 187 QRS: -9 QRSD: 88 T: 31 QT: 416 QTc: 417 Interpretive Statements SINUS RHYTHM NSTTW ABNORMALITY(S) SIMILAR TO 11/07/19 Electronically Signed on 06-17-2020 9:42:48 EDT by Wagner Kirkpatrick
[2020-06-17] MEDS ORDERED: FUROSEMIDE 20MG/2ML VIAL (J1940) IV ONE ×2 (11:30→18:00)
--- NOTE | 2020-06-17 11:39 | IPNPDOC ---
Date Seen The patient was seen on 06/17/20. Progress Note Hospitalist Attending Physician 06/17/20 Progress note dictated. Dictation job#[id number] If urgent written documentation is needed, please 1) call [facility] [phone] for STAT equipment maintenance supervisor, and 2)Medical Records [phone] to STAT scan into EMR. thank you. VS, I&O, 24H, Fishbone Vital Signs/I&O Vital Signs Date Time Temp Pulse Resp B/P (MAP) Pulse Ox O2 Delivery O2 Flow Rate FiO2 06/17/20 07:28 97.2 76 18 110/54 95 Room Air I&O- Last 24 Hours up to 6 AM 06/17/20 06:00 Intake Total 850 ml Output Total 0 ml Balance 850 ml Laboratory Data 24H LABS Laboratory Tests 2 06/16/20 22:58: Immature Granulocyte % (Auto) 0.9, Neutrophils (%) (Auto) 64.7, Lymphocytes (%) (Auto) 23.6L, Monocytes (%) (Auto) 10.5H, Eosinophils (%) (Auto) 0.2, Basophils (%) (Auto) 0.1, Neutrophils # (Auto) 5.7, Lymphocytes # (Auto) 2.1, Monocytes # (Auto) 0.9H, Eosinophils # (Auto) 0.0, Basophils # (Auto) 0.0, Nucleated Red Blood Cells % (auto) 0.0, Anion Gap 5L, Glomerular Filtration Rate > 60.0, Calcium Level 8.2L, Total Creatine Kinase 62, Creatine Kinase MB < 1.0, Creatine Kinase MB Relative Index 1.61, Troponin I < 0.02, WI-Fue-T-Type Natriuretic Peptide 540H 06/17/20 08:07: Immature Granulocyte % (Auto) 0.7, Neutrophils (%) (Auto) 62.3, Lymphocytes (%) (Auto) 24.7, Monocytes (%) (Auto) 11.0H, Eosinophils (%) (Auto) 1.0, Basophils (%) (Auto) 0.3, Neutrophils # (Auto) 4.5, Lymphocytes # (Auto) 1.8, Monocytes # (Auto) 0.8, Eosinophils # (Auto) 0.1, Basophils # (Auto) 0.0, Nucleated Red Blood Cells % (auto) 0.0, Anion Gap 5L, Glomerular Filtration Rate > 60.0, Calcium Level 7.7L, Total Bilirubin 1.3#H, Aspartate Amino Transf (AST/SGOT) 14, Alanine Aminotransferase (ALT/SGPT) 13, Alkaline Phosphatase 40L, Total Protein 5.0L, Albumin 2.7L, Albumin/Globulin Ratio 1.2 CBC/BMP Laboratory Tests 06/16/20 22:58 06/17/20 08:07 BIB JAMESON MD Jun 17, 2020 11:39
[2020-06-17] MEDS ORDERED: MIRALAX *UNIT DOSE* 17GM PACKET PO PRN (11:45)
[2020-06-17] MEDS: DOCUSATE SODIUM 100 MG CAP PO SCH ×2 (13:01→21:31)
[2020-06-18 06:00] VITALS: BP 113/62
[2020-06-18 06:56] LABS: HEMATOCRIT 36.5 % (36.0-47.0); MEAN CORPUSCULAR HEMOGLOBIN 24.9 pg (27.0-33.0); MEAN CORPUSCULAR VOLUME 80.6 fl (80.0-96.0); PLATELET COUNT, AUTOMATED 431 10^3/uL (150-450); RED BLOOD COUNT 4.53 10^6/uL (4.00-5.40); WHITE BLOOD COUNT 10.8 10^3/uL (4.0-10.0)
[2020-06-18 07:01] LABS: HEMOGLOBIN 11.3 g/dl (12.0-15.5)
[2020-06-18 07:26] LABS: ALBUMIN 2.7 GM/DL (3.2-5.2); ALT/SGPT 15 U/L (12-78); BILIRUBIN,TOTAL 0.6 MG/DL (0.2-1.0); BLOOD UREA NITROGEN 16 MG/DL (7-18); CARBON DIOXIDE LEVEL 25 MEQ/L (21-32); CHLORIDE LEVEL 111 MEQ/L (98-107); CREATININE FOR GFR 0.82 MG/DL (0.55-1.30); GLOMERULAR FILTRATION RATE > 60.0 (>32); GLUCOSE, FASTING 82 MG/DL (70-100); MAGNESIUM LEVEL 2.2 MG/DL (1.8-2.4); POTASSIUM SERUM 3.2 MEQ/L (3.5-5.1); SODIUM LEVEL 140 MEQ/L (136-145); TOTAL PROTEIN 5.5 GM/DL (6.4-8.2)
[2020-06-18] MEDS ORDERED: POTASSIUM CHLORIDE 10 MEQ SR TABLET PO ONE (08:30)
[2020-06-18] MEDS: METOPROLOL TART 25 MG TABLET PO SCH ×3 (09:00→20:46)
[2020-06-18] MEDS: MYCOPHENOLATE MOFETIL 250 MG CAP (J7517) PO SCH ×2 (09:41→21:16)
[2020-06-18] MEDS: predniSONE 20 MG TAB PO SCH (09:41)
[2020-06-18] MEDS: DOCUSATE SODIUM 100 MG CAP PO SCH ×2 (09:41→21:15)
[2020-06-18] MEDS: PREGABALIN 50 MG CAP (LYRICA) PO SCH ×2 (09:41→21:15)
[2020-06-18] MEDS: PYRIDOSTIGMINE 60 MG TAB PO SCH ×4 (09:42→21:18)
[2020-06-18] MEDS: PANTOPRAZOLE 40MG TAB (PROTONIX) PO SCH (09:42)
[2020-06-18 13:36] VITALS: BP 113/57
[2020-06-18] MEDS: QUEtiapine FUMARATE 25 MG TAB PO SCH (21:15)
[2020-06-18 22:00] VITALS: BP 119/58
[2020-06-19 06:00] VITALS: BP 121/58
[2020-06-19 06:32] LABS: HEMATOCRIT 39.1 % (36.0-47.0); HEMOGLOBIN 12.3 g/dl (12.0-15.5); MEAN CORPUSCULAR HEMOGLOBIN 25.6 pg (27.0-33.0); MEAN CORPUSCULAR HGB CONC 31.5 g/dl (32.0-36.5); MEAN CORPUSCULAR VOLUME 81.5 fl (80.0-96.0); PLATELET COUNT, AUTOMATED 490 10^3/uL (150-450); WHITE BLOOD COUNT 10.8 10^3/uL (4.0-10.0)
[2020-06-19 06:48] LABS: ALBUMIN 2.9 GM/DL (3.2-5.2); ALT/SGPT 14 U/L (12-78); BILIRUBIN,TOTAL 0.6 MG/DL (0.2-1.0); BLOOD UREA NITROGEN 12 MG/DL (7-18); CALCIUM LEVEL 8.4 MG/DL (8.8-10.2); CARBON DIOXIDE LEVEL 25 MEQ/L (21-32); CHLORIDE LEVEL 114 MEQ/L (98-107); CREATININE FOR GFR 0.78 MG/DL (0.55-1.30); GLOMERULAR FILTRATION RATE > 60.0 (>32); GLUCOSE, FASTING 77 MG/DL (70-100); POTASSIUM SERUM 3.7 MEQ/L (3.5-5.1); SODIUM LEVEL 142 MEQ/L (136-145); TOTAL PROTEIN 5.7 GM/DL (6.4-8.2)
[2020-06-19] MEDS ORDERED: MOM 30ML SUSPENSION UDC PO ONE (08:00)
[2020-06-19] MEDS: PREGABALIN 50 MG CAP (LYRICA) PO SCH ×2 (09:23→20:52)
[2020-06-19] MEDS: MYCOPHENOLATE MOFETIL 250 MG CAP (J7517) PO SCH ×2 (09:23→20:53)
[2020-06-19] MEDS: DOCUSATE SODIUM 100 MG CAP PO SCH ×2 (09:23→20:52)
[2020-06-19] MEDS: PYRIDOSTIGMINE 60 MG TAB PO SCH ×4 (09:23→20:52)
[2020-06-19] MEDS: PANTOPRAZOLE 40MG TAB (PROTONIX) PO SCH (09:23)
[2020-06-19] MEDS: predniSONE 20 MG TAB PO SCH (09:24)
[2020-06-19] MEDS: METOPROLOL TART 25 MG TABLET PO SCH ×2 (09:29→20:54)
[2020-06-19] MEDS ORDERED: POLYETHYLENE GLYCOL (MIRALAX) 238GM BOTTLE PO ONE (13:00)
[2020-06-19 14:00] VITALS: BP 116/58
[2020-06-19] MEDS: QUEtiapine FUMARATE 25 MG TAB PO SCH (20:52)
[2020-06-19 22:00] VITALS: BP 113/61
[2020-06-20] MEDS ORDERED: POLYETHYLENE GLYCOL (MIRALAX) 238GM BOTTLE PO ONE (05:00)
[2020-06-20 06:00] VITALS: BP 118/58
[2020-06-20 08:15] LABS: HEMATOCRIT 46.2 % (36.0-47.0); HEMOGLOBIN 13.8 g/dl (12.0-15.5); MEAN CORPUSCULAR HEMOGLOBIN 25.2 pg (27.0-33.0); MEAN CORPUSCULAR HGB CONC 29.9 g/dl (32.0-36.5); MEAN CORPUSCULAR VOLUME 84.3 fl (80.0-96.0); PLATELET COUNT, AUTOMATED 268 10^3/uL (150-450); RED BLOOD COUNT 5.48 10^6/uL (4.00-5.40); WHITE BLOOD COUNT 9.6 10^3/uL (4.0-10.0)
[2020-06-20] MEDS: predniSONE 20 MG TAB PO SCH (08:16)
[2020-06-20] MEDS: PYRIDOSTIGMINE 60 MG TAB PO SCH ×3 (08:16→16:52)
[2020-06-20] MEDS: MYCOPHENOLATE MOFETIL 250 MG CAP (J7517) PO SCH (08:16)
[2020-06-20] MEDS: PREGABALIN 50 MG CAP (LYRICA) PO SCH (08:16)
[2020-06-20] MEDS: PANTOPRAZOLE 40MG TAB (PROTONIX) PO SCH (08:16)
[2020-06-20 08:17] VITALS: BP 118/58
[2020-06-20] MEDS: METOPROLOL TART 25 MG TABLET PO SCH (08:17)
[2020-06-20 08:44] LABS: ALBUMIN 3.1 GM/DL (3.2-5.2); ALT/SGPT 16 U/L (12-78); BILIRUBIN,TOTAL 0.6 MG/DL (0.2-1.0); BLOOD UREA NITROGEN 8 MG/DL (7-18); CALCIUM LEVEL 7.9 MG/DL (8.8-10.2); CARBON DIOXIDE LEVEL 25 MEQ/L (21-32); CHLORIDE LEVEL 113 MEQ/L (98-107); GLOMERULAR FILTRATION RATE > 60.0 (>32); GLUCOSE, FASTING 82 MG/DL (70-100); SODIUM LEVEL 141 MEQ/L (136-145); TOTAL PROTEIN 6.1 GM/DL (6.4-8.2)
[2020-06-20] MEDS: DOCUSATE SODIUM 100 MG CAP PO SCH (08:57)
--- NOTE | 2020-06-20 10:58 | IPN ---
DATE: 06/18/2020 SUBJECTIVE: Patient denies any lightheadedness, dizziness, near syncopal episode, chest pain, pressure, tightness, or shortness of breath. She still notes a little bit of blood when she moves her mouth, especially yesterday. No other issues per nursing. No abdominal pain, nausea, or vomiting, dysuria, urgency, frequency, fever, or chills. OBJECTIVE: PHYSICAL EXAMINATION: Vital signs: Temperature 99, pulse 60, respiratory rate 16, blood pressure 110/64, 97% on room air. Generally: Awake, alert, oriented to person, place, and time, answering questions appropriately. No jugular venous distension (JVD), no thyromegaly, no cervical lymphadenopathy. Lungs: Clear to auscultation. No wheezing, rales, or rhonchi. Heart: S1, S2, irregularly irregular. Abdomen: Soft, nontender, nondistended. Positive bowel sounds. Extremities: No pitting edema. LABORATORY DATA: White count 10, hemoglobin 11, hematocrit 36, platelet count 431, sodium 140, potassium 3.2, chloride 111, bicarbonate 25, BUN 16, creatinine 0.82, glucose of 82. ASSESSMENT AND PLAN: This is an 79-year-old female with a history of paroxysmal atrial fibrillation, myasthenia gravis with difficulty swallowing, receives intravenous immunoglobulin (IVIG), Raynauds phenomenon, reflux, migraines, osteopenia, hyperlipidemia, history of transient ischemic attack (TIA) in right hemisphere with small vessel ischemic disease, presents to the emergency room due to severe anemia, fatigue, and lightheadedness for about 3 days, found to have chronic anemia due to hemorrhoidal bleeding with a hemoglobin of 6.0 on admission status post four units red blood cells (RBC) transfusion. CURRENT ISSUES: 1. Chronic gastrointestinal (GI) bleed most likely due to hemorrhoids. 2. Acute blood loss anemia requiring four units red blood cells (RBC) transfusion. 3. Acute gastrointestinal (GI) bleed in the setting of Xarelto. 4. Paroxysmal atrial fibrillation on chronic anticoagulation with Xarelto, currently held. 5. History of myasthenia gravis. 6. History of Raynauds phenomenon. 7. History of migraines. 8. History of reflux. 9. History of hyperlipidemia. 10. History of allergic rhinitis. 11. History of transient ischemic attack (TIA) in right hemisphere. PLAN: Since the patient is off the Xarelto for her paroxysmal atrial fibrillation, she is at increased risk of CVA. After discussion with home health clinical supervisor, Dr. Lopez, and Dr. Amos outpatient schedule, it would be unlikely that patient will be seen as an outpatient any sooner than 1 1/2 months. Therefore, it has been decided that patient should have her scope during this admission in order to resume her Xarelto. She has been off Xarelto since hospital admission. Currently, just on her home medications. Her atrial fibrillation is rate controlled currently. She is kept on her CellCept and Mestinon for her chronic myasthenia gravis. She otherwise has no complaints today. Did not appear to be orthostatic and is agreeable to proceeding with scope. Compression stockings for deep venous thrombosis (DVT) prophylaxis. MTDD
--- NOTE | 2020-06-20 10:59 | IPN ---
DATE: 06/19/2020 SUBJECTIVE: Patient seen and examined at the bedside. Chart has been reviewed. Patient denies any recurrent episodes of bright red blood per rectum, melena, or black, tarry stools. No nausea, vomiting, or abdominal pain. No fever or chills. Denies dysuria, urgency, frequency. Patient says that she walked with physical therapy up and down the hallway yesterday. Whitney comfortable with her walker. She is scheduled to have a colonoscopy done on 06/20/[address] Lopez. OBJECTIVE: PHYSICAL EXAMINATION: VITAL SIGNS: Temperature 98.9, pulse 67, respiratory rate 16, blood pressure 118/50, 92% on room air. GENERAL: Awake, alert, oriented to person, place, and time, answering questions appropriately. No jugular venous distention (JVD). No thyromegaly. No cervical lymphadenopathy. LUNGS: Clear to auscultation. No wheezing, rales, or rhonchi. HEART: S1, S2, irregularly irregular. Nondisplaced point of maximal impulse. ABDOMEN: Soft, nontender, nondistended. Positive bowel sounds. EXTREMITIES: No cyanosis or clubbing. LABORATORY DATA: White count 10.8, hemoglobin 12, hematocrit 39, platelet count 490. Sodium 142, potassium 3.7, chloride 114, bicarbonate 25, BUN 12, creatinine 0.78, glucose 77, albumin 2.9. Microbiology: Hemoccult stool 06/18/2020 negative. ASSESSMENT AND PLAN: This is an 79-year-old female admitted on June 17 with complaints of 2-3 days of lightheadedness and dizziness, found to have a hemoglobin of 6, sent by Dr. Ramsey's office to the emergency room for further evaluation. ACUTE ISSUES: 1. Acute blood loss anemia/symptomatic anemia secondary to gastrointestinal (GI) bleed from possible chronic hemorrhoidal bleeding. Patient is off of the Xarelto currently and has been transfused 4 units of red blood cells (RBC) with resultant hemoglobin of 12. No recurrent episodes of GI bleed. Personnel Consultant, Dr. Lopez, has been consulted for endoscopy. 2. Paroxysmal atrial fibrillation. Patient's Xarelto has been held due to acute blood loss anemia due to acute GI bleed. She is currently rate controlled with her home medications. 3. History of myasthenia gravis with dysphagia, status post IVIG during previous hospital admission. On Mestinon. No other acute issues currently. 4. History of reflux, on proton pump inhibitor (PPI). 5. History of migraines. No acute complaints. 6. Dyslipidemia and impaired fasting glucose. Continue monitoring. No acute issues. 7. History of right hemispheric transient ischemic attack (TIA) with small- vessel disease. Patient's anticoagulant has been held until endoscopy is performed. [facility]
--- NOTE | 2020-06-20 12:31 | IPNPDOC ---
Date Seen The patient was seen on 06/20/20. Progress Note SUBJECTIVE: Patient complains of having a restless night due to bowel prep. She has been having loose stools in order to clear for colonoscopy today. She otherwise denies any dizziness, lightheadedness, chest pain, pressure, tightness or shortness of breath. She's had no recurrent episodes of bright red blood per rectum, melena, black tarry stools. Denies nausea or vomiting. No fever or chills overnight. Patient has passed her physical therapy home safety evaluation and is anxious to go home soon after colonoscopy if okay with group art supervisor, Dr. LOPEZ patient may be discharged home. OBJECTIVE: PHYSICAL EXAMINATION: VITAL SIGNS: see below GENERAL: Awake, alert, oriented to person, place, and time, speaks in full sentences answering questions appropriately. HEENT: Anicteric, no pallor, no jaundice. No pharyngeal erythema No jugular venous distention (JVD). No thyromegaly. No cervical lymphadenopathy. LUNGS: Clear to auscultation. No wheezing, rales, or rhonchi. HEART: S1, S2, irregularly irregular. Nondisplaced point of maximal impulse. ABDOMEN: Soft, nontender, nondistended. Positive bowel sounds. EXTREMITIES: No cyanosis or clubbing. LABORATORY DATA: see below Microbiology: Hemoccult stool 06/18/2020 negative. ASSESSMENT AND PLAN: This is an 79-year-old female admitted on June 17 with complaints of 2-3 days of lightheadedness and dizziness, found to have a hemoglobin of 6, sent by Dr. Ramsey's office to the emergency room for further evaluation. ACUTE ISSUES: 1. Acute blood loss anemia/symptomatic anemia secondary to gastrointestinal (GI)bleed from possible chronic hemorrhoidal bleeding. 2. Paroxysmal atrial fibrillation. 3. History of myasthenia gravis with dysphagia, status post IVIG during previous hospital admission. 4. History of reflux, on proton pump inhibitor (PPI). 5. History of migraines. No acute complaints. 6. Dyslipidemia and impaired fasting glucose. 7. History of right hemispheric transient ischemic attack (TIA) with small- vessel disease. 8. Preoperative medical clearance PLAN: Patient is medically optimized to proceed to endoscopy. She exhibits no acute ischemic symptoms. Denies prior history of IA, CAD, or congestive heart failure. Currently denies any nausea, epigastric discomfort, shortness of breath, chest p ain, pressure, tightness, lightheadedness or dizziness. Patient is off of the Xarelto.currently and has been transfused 4 units of red blood cells (RBC) with resultant hemoglobin of 12. No recurrent episodes of GI bleed. Senior Behavioral Scientist, Dr. Lopez, has been consulted for endoscopy. If okay with group art supervisor, Dr. Schmitt patient may be discharged home since she has been cleared by physical therapy. She'll be continued on her home medications except for her anticoagulant and antiplatelet therapy. VS, I&O, 24H, Fishbone Vital Signs/I&O Vital Signs Date Time Temp Pulse Resp B/P (MAP) Pulse Ox O2 Delivery O2 Flow Rate FiO2 06/20/20 08:17 68 118/58 06/20/20 06:00 97.5 19 97 Room Air I&O- Last 24 Hours up to 6 AM 06/20/20 06:00 Intake Total 2220 ml Output Total 1050 ml Balance 1170 ml Laboratory Data 24H LABS Laboratory Tests 2 06/20/20 08:03: Nucleated Red Blood Cells % (auto) 0.0, Anion Gap 3L, Glomerular Filtration Rate > 60.0, Calcium Level 7.9L, Total Bilirubin 0.6, Aspartate Amino Transf (AST/SGO T) 19, Alanine Aminotransferase (ALT/SGPT) 16, Alkaline Phosphatase 58, Total Protein 6.1L, Albumin 3.1L, Albumin/Globulin Ratio 1.0L 06/20/20 10:47: CBC/BMP Laboratory Tests 06/20/20 08:03 Microbiology Microbiology 06/18/20 Stool Occult Blood ([facility]) - Final, Complete BIB JAMESON MD Jun 20, 2020 12:31
[2020-06-20] MEDS ORDERED: propofoL 500 MG/50 ML VIAL As Ordered ONE (13:21)
[2020-06-20] MEDS ORDERED: LIDOCAINE 2% 100MG/5ML SDV (FOR ANES.) As Ordered ONE (13:21)
--- NOTE | 2020-06-20 15:24 | ROOR ---
Patient Name: Jacqui Little Procedure Date: 06/20/2020 1:43 PM Date of : 1940 Age: 79 Room: [facility] Gender: Female Note Status: Finalized Procedure: Upper GI endoscopy Indications: Acute post hemorrhagic anemia, Functional Dyspepsia, Heartburn Providers: Robin LOPEZ MD Referring MD: 2. Inpatient 2. Inpatient Requesting Provider: Medicines: Monitored Anesthesia Care Complications: No immediate complications. Procedure: Pre-Anesthesia Assessment: - The heart rate, respiratory rate, oxygen saturations, blood pressure, adequacy of pulmonary ventilation, and response to care were monitored throughout the procedure. The Endoscope was introduced through the mouth, and advanced to the second part of duodenum. The upper GI endoscopy was accomplished without difficulty. The patient tolerated the procedure well. Findings: The examined esophagus was normal. Scattered mild inflammation characterized by erosions and erythema was found in the gastric antrum. Biopsies were taken with a cold forceps for histology. The exam of the stomach was otherwise normal. The examined duodenum was normal. Impression: - Normal esophagus. - Mild scattered antral gastritis. Biopsied. - Stomach is otherwise normal. - Normal examined duodenum. -(Source for BRBPR not seen on this exam) Recommendation: - Telephone endoscopist for pathology results in 2 weeks. Robin Lopez MD Robin LOPEZ MD 06/20/2020 3:24:18 PM Electronically signed by Robin LOPEZ MD Number of Addenda: 0 Note Initiated On: 06/20/2020 1:43 PM Estimated Blood Loss: Estimated blood loss: none.
--- NOTE | 2020-06-20 15:34 | ROOR ---
Patient Name: Jacqui Little Procedure Date: 06/20/2020 1:44 PM Date of : 1940 Age: 79 Room: [facility] Gender: Female Note Status: Finalized Procedure: Colonoscopy Indications: Hematochezia Providers: Robin LOPEZ MD Referring MD: 2. Inpatient 2. Inpatient Requesting Provider: Medicines: Monitored Anesthesia Care Complications: No immediate complications. Procedure: Pre-Anesthesia Assessment: - The heart rate, respiratory rate, oxygen saturations, blood pressure, adequacy of pulmonary ventilation, and response to care were monitored throughout the procedure. The Colonoscope was introduced through the anus and advanced to 10 cm into the ileum. The colonoscopy was performed without difficulty. The patient tolerated the procedure well. The quality of the bowel preparation was adequate. Findings: Hemorrhoids were found on perianal exam. Inflammation characterized by erosions, erythema and granularity was found as patches surrounded by normal mucosa in the sigmoid colon, in the descending colon, in the transverse colon, in the ascending colon and in the terminal ileum. This was mild in severity, and when compared to previous examinations, the findings are new. Biopsies were taken with a cold forceps for histology. Internal hemorrhoids were found during retroflexion. The hemorrhoids were large. Impression: - Hemorrhoids found on perianal exam. - Suspect Crohn's disease (probable), with ileitis and colitis. Mild erythema, Inflammation and scattered mucosal ulcerations was found in the sigmoid colon, in the descending colon, in the transverse colon, in the ascending colon and in the terminal ileum. This was mild to moderate in severity. Biopsied to r/o infectious/viral/ischemic. - Large Internal/external hemorrhoids. - The exam was otherwise normal. Recommendation: - Use Pentasa 1 gram PO QID. - Return to my office in 1 month. Robin Lopez MD Robin LOPEZ MD 06/20/2020 3:33:14 PM Electronically signed by Robin LOPEZ MD Number of Addenda: 0 Note Initiated On: 06/20/2020 1:44 PM Estimated Blood Loss: Estimated blood loss: none.
[2020-06-20 16:15] VITALS: BP 116/56
[2020-06-20 16:45] VITALS: BP 115/56
[2020-06-20] MEDS ORDERED: MESALAMINE 250 MG CR CAP PO SCH (21:00)
== END 2020-06-20 18:54 | disposition home or self-care (01) | DRG 813 ==
LOC: M ED 21:44 → M ED INP 06-17 00:24 → ENRESERV 06-17 01:26 → M MSPAV 06-17 02:14
PROVIDERS: ADMIT Internal Medicine; ATTEND General Practice
PROC: 30233N1 Transfusion of Nonautologous Red Blood Cells into Peripheral Vein, Percutaneous Approach (ICD-10-PCS; principal; 2020-06-17)
PROC: 0DB68ZX Excision of Stomach, Via Natural or Artificial Opening Endoscopic, Diagnostic (ICD-10-PCS; 2020-06-20)
PROC: 0DBB8ZX Excision of Ileum, Via Natural or Artificial Opening Endoscopic, Diagnostic (ICD-10-PCS; 2020-06-20)
DX: D68.32 Hemorrhagic disorder due to extrinsic circulating anticoagulants (principal); K92.2 Gastrointestinal hemorrhage, unspecified; D62 Acute posthemorrhagic anemia; K63.3 Ulcer of intestine; G70.00 Myasthenia gravis without (acute) exacerbation; R73.01 Impaired fasting glucose; I48.0 Paroxysmal atrial fibrillation; E78.5 Hyperlipidemia, unspecified; K21.9 Gastro-esophageal reflux disease without esophagitis; G43.909 Migraine, unspecified, not intractable, without status migrainosus; Z86.73 Personal history of transient ischemic attack (TIA), and cerebral infarction without residual deficits; Z87.891 Personal history of nicotine dependence; Z79.82 Long term (current) use of aspirin; Z79.899 Other long term (current) drug therapy; Z88.0 Allergy status to penicillin; Z91.041 Radiographic dye allergy status; Z88.2 Allergy status to sulfonamides; Z88.8 Allergy status to other drugs, medicaments and biological substances; Z79.01 Long term (current) use of anticoagulants; K64.8 Other hemorrhoids; K64.4 Residual hemorrhoidal skin tags

== ENCOUNTER → 2020-06-16 | Outpatient (CLI) | payer MEDICARE, MEDICAID ==
[~2020-06-16] MED LIST changes: +ACET325C5 PO; +ASPI-161 PO; +ASPI81CH33 PO; -ASPI81TA85 PO; +ASPI81TA86 PO; +BUDE3CAP PO; +CALC600T18 PO; +ESOM40CA35 PO; +NYST10CR TOP; +PANT40TA29 PO; +PREG50CA PO; +TUMS500C PO; +VALG1TAB PO; +VITA50005 PO
[2020-06-16 16:28] LABS: BASO % 0.1 % (0.0-1.0); HEMATOCRIT 22.5 % (36.0-47.0); LYMPH # 0.7 10^3/uL (1.5-5.0); LYMPH % 7.6 % (24.0-44.0); MEAN CORPUSCULAR HEMOGLOBIN 21.4 pg (27.0-33.0); MEAN CORPUSCULAR VOLUME 76.3 fl (80.0-96.0); MONO # 0.3 10^3/uL (0.0-0.8); MONO % 3.4 % (0.0-5.0); NEUTROPHILS # 7.7 10^3/uL (1.5-8.5); NEUTROPHILS % 88.1 % (36.0-66.0); PLATELET COUNT, AUTOMATED 568 10^3/uL (150-450); RED BLOOD COUNT 2.95 10^6/uL (4.00-5.40); WHITE BLOOD COUNT 8.7 10^3/uL (4.0-10.0)
[2020-06-16 16:42] LABS: ALBUMIN 3.2 GM/DL (3.2-5.2); ALT/SGPT 15 U/L (12-78); BILIRUBIN,TOTAL 0.3 MG/DL (0.2-1.0); BLOOD UREA NITROGEN 13 MG/DL (7-18); CALCIUM LEVEL 8.2 MG/DL (8.8-10.2); CARBON DIOXIDE LEVEL 31 MEQ/L (21-32); CHLORIDE LEVEL 101 MEQ/L (98-107); CHOLESTEROL LEVEL 143 MG/DL (<200); CHOLESTEROL RISK RATIO 2.803 (<5); FREE T4 1.21 NG/DL (0.76-1.46); GLOMERULAR FILTRATION RATE 56.6 (>32); GLUCOSE, FASTING 110 MG/DL (70-100); HDL CHOLESTEROL 51 MG/DL (>40); LDL CHOLESTEROL 68 MG/DL (<100); NON-HDL-C 92 MG/DL; NT-PRO BNP 852 PG/ML (<450); POTASSIUM SERUM 3.5 MEQ/L (3.5-5.1); SODIUM LEVEL 136 MEQ/L (136-145); THYROID STIMULATING HORMONE 0.792 uIU/ML (0.358-3.740); TOTAL PROTEIN 5.9 GM/DL (6.4-8.2); TRIGLYCERIDES LEVEL 118 MG/DL (<150)
[2020-06-16 16:44] LABS: PTH INTACT 114.5 PG/ML (18.5-88.0); VITAMIN B12 LEVEL 836 PG/ML (247-911)
[2020-06-16 16:45] LABS: FOLATE > 24.0 NG/ML (>5.4)
[2020-06-16 17:07] LABS: HEMOGLOBIN 6.3 g/dl (12.0-15.5)
== END ==
LOC: M PLALAB 12:37
PROVIDERS: ATTEND Nurse Practitioner Family
DX: R60.9 Edema, unspecified (principal); E55.9 Vitamin D deficiency, unspecified; G70.00 Myasthenia gravis without (acute) exacerbation; K64.9 Unspecified hemorrhoids; R63.4 Abnormal weight loss; R73.01 Impaired fasting glucose; R68.0 Hypothermia, not associated with low environmental temperature

== ENCOUNTER → 2020-07-01 | Outpatient (REF) | payer MEDICARE, MEDICAID ==
[~2020-07-01] MED LIST changes: +ACET325C5 PO; +ASPI-161 PO; +ASPI81CH33 PO; +BUDE3CAP PO; +CALC600T18 PO; +ESOM40CA35 PO; +NYST10CR TOP; +PANT40TA29 PO; +PREG50CA PO; +TUMS500C PO; +VALG1TAB PO; +VITA50005 PO
[2020-07-01 15:17] LABS: BASO % 0.3 % (0.0-1.0); EOS % 0.1 % (0.0-3.0); HEMATOCRIT 41.8 % (36.0-47.0); HEMOGLOBIN 12.2 g/dl (12.0-15.5); LYMPH # 0.7 10^3/uL (1.5-5.0); LYMPH % 6.8 % (24.0-44.0); MEAN CORPUSCULAR HEMOGLOBIN 24.8 pg (27.0-33.0); MEAN CORPUSCULAR HGB CONC 29.2 g/dl (32.0-36.5); MEAN CORPUSCULAR VOLUME 85.1 fl (80.0-96.0); MONO # 0.4 10^3/uL (0.0-0.8); MONO % 3.9 % (0.0-5.0); NEUTROPHILS # 8.9 10^3/uL (1.5-8.5); NEUTROPHILS % 87.9 % (36.0-66.0); PLATELET COUNT, AUTOMATED 463 10^3/uL (150-450); RED BLOOD COUNT 4.91 10^6/uL (4.00-5.40); WHITE BLOOD COUNT 10.2 10^3/uL (4.0-10.0)
[2020-07-01 15:46] LABS: ALBUMIN 3.1 GM/DL (3.2-5.2); ALT/SGPT 16 U/L (12-78); BILIRUBIN,TOTAL 0.3 MG/DL (0.2-1.0); BLOOD UREA NITROGEN 10 MG/DL (7-18); CALCIUM LEVEL 8.7 MG/DL (8.8-10.2); CARBON DIOXIDE LEVEL 34 MEQ/L (21-32); CHLORIDE LEVEL 100 MEQ/L (98-107); CREATININE FOR GFR 0.86 MG/DL (0.55-1.30); GLOMERULAR FILTRATION RATE > 60.0 (>32); GLUCOSE, FASTING 110 MG/DL (70-100); NT-PRO BNP 559 PG/ML (<450); POTASSIUM SERUM 3.9 MEQ/L (3.5-5.1); SODIUM LEVEL 140 MEQ/L (136-145); TOTAL PROTEIN 5.9 GM/DL (6.4-8.2)
[2020-07-03 18:08] LABS: Chitobioside Carbohydrat (ACCA 30 units (0-90); H PYLORI SERUM QUANT IgG ABY 0.18 (0.00-0.79); Laminaribioside Carbohyd (ALCA 4 units (0-60); Mannobioside Carbohydrat (AMCA 13 units (0-100); Saccharomyces cerevisiae IgG A 2 units (0-50)
== END ==
LOC: M SFHCPLAZ 12:20
PROVIDERS: ATTEND Family Medicine
DX: K50.10 Crohn's disease of large intestine without complications (principal); I50.32 Chronic diastolic (congestive) heart failure
CPT/HCPCS: 36415; 80053; 83516; 83880; 85025; 85046; 86677; G0463

== ENCOUNTER 2020-07-03 07:57 | Observation (INO) | payer MEDICARE, MEDICAID ==
[~2020-07-03] VITALS: Ht 165.1 cm; Wt 59.1 kg
[~2020-07-03 07:57] MED LIST changes: -ACET325C5 PO; -ASPI81CH33 PO; -BUDE3CAP PO; -ESOM40CA35 PO; -NYST10CR TOP; -PANT40TA29 PO; -TUMS500C PO; -VALG1TAB PO
[2020-07-03] MEDS ORDERED: ASPI81CH33 PO (08:09)
[2020-07-03] MEDS ORDERED: XARE20TA PO (08:09)
[2020-07-03 09:19] LABS: BASO # 0.1 10^3/uL (0.0-0.2); BASO % 0.6 % (0.0-1.0); EOS # 0.1 10^3/uL (0.0-0.5); EOS % 0.7 % (0.0-3.0); HEMATOCRIT 41.1 % (36.0-47.0); HEMOGLOBIN 12.3 g/dl (12.0-15.5); LYMPH % 18.9 % (24.0-44.0); MEAN CORPUSCULAR HEMOGLOBIN 25.4 pg (27.0-33.0); MEAN CORPUSCULAR HGB CONC 29.9 g/dl (32.0-36.5); MEAN CORPUSCULAR VOLUME 84.9 fl (80.0-96.0); MONO % 9.5 % (0.0-5.0); NEUTROPHILS # 7.3 10^3/uL (1.5-8.5); NEUTROPHILS % 68.7 % (36.0-66.0); PLATELET COUNT, AUTOMATED 474 10^3/uL (150-450); RED BLOOD COUNT 4.84 10^6/uL (4.00-5.40); WHITE BLOOD COUNT 10.6 10^3/uL (4.0-10.0)
--- NOTE | 2020-07-03 09:21 | REPVR ---
PROCEDURE INFORMATION: Exam: CT Abdomen And Pelvis Without Contrast Exam date and time: 07/03/2020 8:33 AM Age: 79 years old Clinical indication: Abdominal pain; Localized; Left lower quadrant (LLQ) TECHNIQUE: Imaging protocol: Computed tomography of the abdomen and pelvis without contrast. Coronal and sagittal reformats were created and reviewed. Radiation optimization: All CT scans at this facility use at least one of these dose optimization techniques: automated exposure control; mA and/or kV adjustment per patient size (includes targeted exams where dose is matched to clinical indication); or iterative reconstruction. COMPARISON: CT ABD PELVIS W/O CONTRAST 10/01/2019 2:23 PM FINDINGS: Limitations: Artifacts from the bilateral metallic hip prostheses limit evaluation of the pelvis and its contents. Lungs: The visualized lung bases are unremarkable. Liver: Liver is unremarkable. Gallbladder and bile ducts: The gallbladder is absent. No intrahepatic or extrahepatic bile duct dilation. Pancreas: Pancreas is unremarkable. Spleen: Spleen is unremarkable. Adrenals: Adrenal glands are unremarkable. Kidneys and ureters: No nephrolithiasis. Bilateral extrarenal pelves redemonstrated. New mild bilateral renal pelviectasis. Evaluation of the bilateral distal ureters is markedly limited by streak artifact. No ureteral calculus or abnormal dilation is identified. Stomach and bowel: The stomach is decompressed; this limits evaluation of its wall thickness. Duodenal diverticulum redemonstrated. Liquid stool is present within the colon. A long region of the transverse colon through the descending colon is decompressed with minimal pericolonic fat stranding and suspicion for diffuse colonic wall thickening here. No evidence of bowel obstruction. Appendix: The appendix is not identified. Intraperitoneal space: No free intraperitoneal fluid. No pneumoperitoneum. Vasculature: Aortic root calcifications are present. Abdominal and pelvic atherosclerosis. No abdominal aortic aneurysm. Lymph nodes: No enlarged lymph nodes. Urinary bladder: Evaluation of the urinary bladder is limited by streak artifact. The visualized urinary bladder is unremarkable. Reproductive: The uterus is absent. Unchanged right adnexal 2.4 cm homogeneous hypoattenuating ovoid simple-appearing cyst; no further imaging is recommended for this cyst. (Reference: Espinosa) Bones/joints: Bilateral hip prostheses. The bones are diffusely demineralized. New vertically oriented sclerosis of the right sacral ala consistent with a healing nondisplaced fracture. New sclerosis of the left superior and inferior pubic rami consistent with healing nondisplaced fractures. Degenerative spine disease. Soft tissues: Anterior abdominal wall surgical sutures. IMPRESSION: 1. Suspected colitis involving the transverse and descending colon. Liquid stool is present within the colon. Clinical correlation for diarrheal illness is needed. 2. New mild bilateral renal pelviectasis. 3. Healing fractures of the right sacrum and left pubic rami. 4. Please see the body of the report for other findings as described. REFERENCES: Jesús et al. Management of Incidental Adnexal Findings on CT and MRI: A White Paper of the ACR Incidental Findings Committee, J Am Dave Radiol. 2019;17(2):248-254. Electronically signed by: Caleb Pena On 07/03/2020 09:22:01 AM
[2020-07-03 09:30] LABS: INR 1.09; PROTHROMBIN TIME 14.3 SECONDS (12.5-14.3)
[2020-07-03 09:39] LABS: ALT/SGPT 15 U/L (12-78); BILIRUBIN,DIRECT < 0.1 MG/DL (0.0-0.2); BILIRUBIN,TOTAL 0.2 MG/DL (0.2-1.0); CK-MB VALUE MASS < 1.0 NG/ML (<3.6); CPK CREATINE PHOSPHOKINASE 34 U/L (26-192); LIPASE 213 U/L (73-393); MB/CK RELATIVE INDEX 2.94 (< OR =4); TOTAL PROTEIN 5.8 GM/DL (6.4-8.2); TROPONIN I < 0.02 NG/ML (< 0.10)
[2020-07-03] MEDS: NS 1,000 ML IV SCH ×2 (10:08→22:09)
[2020-07-03] MEDS ORDERED: ASPI-161 PO (10:51)
[2020-07-03] MEDS ORDERED: TUMS500C PO (10:51)
[2020-07-03 14:49] VITALS: BP 107/50
[2020-07-03] MEDS ORDERED: GLUCOSE 4GM CHEW TABLET PO PRN (15:30)
[2020-07-03] MEDS ORDERED: DEXTROSE 50% 50 ML SYRINGE IV PRN (15:30)
[2020-07-03] MEDS ORDERED: GLUCAGON INJ 1MG VIAL SC PRN (15:30)
--- NOTE | 2020-07-03 15:30 | HPEPDOC ---
[facility] Medical History & Physical Date of Admission Jul 03, 2020 Date of Service: Jul 03, 2020 History and Physical CHIEF COMPLAINT: lower gastrointestinal bleeding HISTORY OF PRESENT ILLNESS: Mrs. Little is an 79-year-old female with history of myasthenia gravis, paroxysmal A. fib on Xarelto, hyperlipidemia, TIA, prese nts to [facility] ED complaining of 2-3 day history of bright red blood per rectum as well as copious runny/semi-formed diarrhea, which has improved mildly in past day. Per caregiver at bedside, having episodes of bloody diarrhea with cramping abdominal apin for the past few months. In the past few days noting bright red blood. Blood is seen in the bedside commode during the examination. Patient also complains of 8 out of 10 abdominal pain in the left lower quadrant. She denies fevers, chills, nausea, vomiting. She was last admitted on June 16 for workup of symptomatic anemia. Reviewed colonoscopy report from June [address] Kunz, hemorrhoids found on perianal exam, anil pected Crohn's with ileitis and colitis, mild erythema and inflammation with scattered mucosal ulceration in front of the sigmoid colon, descending colon, transverse colon and ascending colon and the terminal ileum with moderate intensity. Large internal hemorrhoids were seen. She was prescribed Pentasa 1 g 4 times daily. EGD performed on the same date, showed mild scattered antral gastritis, otherwise normal exam. I discussed further with Dr. Cm he aborted. Patient not being able to tolerate mesalamine, thought to be due to diarrhea and for that reason was discontinued. 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 SOCIAL HISTORY: former smoker, quit 50 years ago denies illicits denies etoh use FAMILY HISTORY: Hypertension Heart disease unspecified Cancer in father Mother at 101 years old ALLERGIES: Please see below. REVIEW OF SYSTEMS: CONSTITUTIONAL: patient denies fevers, chills HEENT: patient denies blurred vision, loss of vision, headache,. CARDIOVASCULAR: patient denies chest pain, palpitations. RESPIRATORY: patient denies shortness of breath, cough, hemoptysis. GASTROINTESTINAL: reports bright red blood in stool, abdominal pain in the left lower quadrant. GENITOURINARY: patient denies dysuria, discharge. SKIN: patient denies rashes. MUSCULOSKELETAL: patient denies joint pain, neck pain. NEUROLOGICAL: patient denies focal weakness, numbness, seizures. PSYCHIATRIC: patient denies SI/HI. ENDOCRINE: patient denies polyuria, heat intolerance, cold intolerance. HEMATOLOGIC/LYMPHATIC: patient denies easy bruising. HOME MEDICATIONS: Please see below. PHYSICAL EXAMINATION: VITAL SIGNS: please see below General: comfortable, hard of hearing HEENT: PERRLA, EOMI, sclerae clear Neck: supple, normal ROM, no JVD Respiratory: lungs CTAB, no wheeze, no rales, no crackles CVS: RRR, normal S1, S2, no murmurs Abdo: soft, no masses, no hepatosplenomegaly, BS+, abdomen, painful to palpation left lower quadrant. Extremities: 2+ lower extremity pitting edema, pulses 2+ MSK: no joint deformities, normal ROM Neuro: no focal neuro deficits, moving all 4 extremities, CN2-12 intact. Strength 5/5 in all 4 extremities. No nystagmus. Psych: calm, cooperative, AAO x 3 LABORATORY DATA: See below. IMAGING: CT abdo/pelvis (07/03/20): FINDINGS: Limitations: Artifacts from the bilateral metallic hip prostheses limit evaluation of the pelvis and its contents. Lungs: The visualized lung bases are unremarkable. Liver: Liver is unremarkable. Gallbladder and bile ducts: The gallbladder is absent. No intrahepatic or extrahepatic bile duct dilation. Pancreas: Pancreas is unremarkable. Spleen: Spleen is unremarkable. Adrenals: Adrenal glands are unremarkable. Kidneys and ureters: No nephrolithiasis. Bilateral extrarenal pelves redemonstrated. New mild bilateral renal pelviectasis. Evaluation of the bilateral distal ureters is markedly limited by streak artifact. No ureteral calculus or abnormal dilation is identified. Stomach and bowel: The stomach is decompressed; this limits evaluation of its wall thickness. Duodenal diverticulum redemonstrated. Liquid stool is present within the colon. A long region of the transverse colon through the descending colon is decompressed with minimal pericolonic fat stranding and suspicion for diffuse colonic wall thickening here. No evidence of bowel obstruction. Appendix: The appendix is not identified. Intraperitoneal space: No free intraperitoneal fluid. No pneumoperitoneum. Vasculature: Aortic root calcifications are present. Abdominal and pelvic atherosclerosis. No abdominal aortic aneurysm. Lymph nodes: No enlarged lymph nodes. Urinary bladder: Evaluation of the urinary bladder is limited by streak artifact. The visualized urinary bladder is unremarkable. Reproductive: The uterus is absent. Unchanged right adnexal 2.4 cm homogeneous hypoattenuating ovoid simple-appearing cyst; no further imaging is recommended for this cyst. (Reference: Espinosa) Bones/joints: Bilateral hip prostheses. The bones are diffusely demineralized. New vertically oriented sclerosis of the right sacral ala consistent with a healing nondisplaced fracture. New sclerosis of the left superior and inferior pubic rami consistent with healing nondisplaced fractures. Degenerative spine disease. Soft tissues: Anterior abdominal wall surgical sutures. IMPRESSION: 1. Suspected colitis involving the transverse and descending colon. Liquid stool is present within the colon. Clinical correlation for diarrheal illness is needed. 2. New mild bilateral renal pelviectasis. 3. Healing fractures of the right sacrum and left pubic rami. 4. Please see the body of the report for other findings as described. MICROBIOLOGY: Please see below. ASSESSMENT: 79-year-old female with a history of atrial fibrillation and recurrent GI bleeding, presents to ED with ongoing bloody diarrhea as well as better blood per rectum. Reviewed colonoscopy from June 20, GI suspicion for Crohn's disease. Scattered mucosal ulcerations throughout the colon. Pathology report nonspecific. I discussed this further with Dr. Cm. It is unclear whether the patient has a specific diagnosis for inflammatory bowel disease. Likely nonspecific inflammatory or possibly infectious colitis. At this time. W ill defer antibiotics. Will treat with IV steroids. Monitor progress. PLAN: #Lower GI bleeding: likely multifactorial. bleeding internal hemorrhoids vs colitis (possibly Crohn's/IBD vs idiopathic?) Pathology non diagnostic. Discussed with Dr. Lopez. Patient was discharged on mesalamine, but could not tolerate due to diarrhea, therefore was stopped. Agrees with solumedrol 60 mg IV TID for 1 day, followed by entecort 9 mg PO daily. Will follow up with patient in clinic. C/w mycophenolate. Start solumedol 60 mg IV TID. ISS for expected hyperglycemia. PPI IV. #Diarrhea: ongoing for approximately 1 week. possibly related to mesalamine which was DC. check GI panel, which will be a send out. ordered a c diff pcr test which is quicker. Monitor #paroxysmal Afib: rate controlled on metoprolol 25 mg BID. AC on xarelto. Hold AC given acute GIB. Hold metoprolol as borderline BP. #Myasthenia gravis: home med cellcept, continue on admission. If inflammatory colitis, will help with flare. Hold home prednisone. Solumedrol 60 mg IV TID. c/w pyridostigmine 60 mg qid #Bilateral lower extremity edema: echo shows normal LVEF 60-65%, with normal systolic and diastolic function, no pulm hypertension. Lasix 40 mg PO once BP improves. #Mood disorder: seroquel 25 mg QHS. #GERD: will give protonix IV once daily given solumedrol #hx TIA: takes ASA/stain. will hold asa for now. #DVT ppx: SCDs, TEDs in setting of LGIB. Vital Signs Vital Signs Date Time Temp Pulse Resp B/P (MAP) Pulse Ox O2 Delivery O2 Flow Rate FiO2 07/03/20 14:00 117 07/03/20 13:45 97.1 99/54 (69) 98 07/03/20 07:58 20 Room Air Laboratory Data Labs 24H Laboratory Tests 2 07/03/20 09:01: Prothrombin Time 14.3H, Prothromb Time International Ratio 1.09 07/03/20 09:02: Immature Granulocyte % (Auto) 1.6, Neutrophils (%) (Auto) 68.7H, Lymphocytes (%) (Auto) 18.9L, Monocytes (%) (Auto) 9.5H, Eosinophils (%) (Auto) 0.7, Basophils (%) (Auto) 0.6, Neutrophils # (Auto) 7.3, Lymphocytes # (Auto) 2.0, Monocytes # (Auto) 1.0H, Eosinophils # (Auto) 0.1, Basophils # (Auto) 0.1, Nucleated Red Blood Cells % (auto) 0.0, POC Glucose (Misc Panel) 84, POC Sodium (Misc Panel) 140, POC Potassium (Misc Panel) 4.0, POC Chloride (Misc Panel) 99, POC Total CO2 (Misc Panel) 32.0H, POC Blood Urea Nitrogen (Misc Panel 14, POC Ionized Calcium (Misc Panel) 4.3L, POC Creatinine (Misc Panel) 0.8, POC Hematocrit (Misc Panel) 40.0, Total Bilirubin 0.2, Direct Bilirubin < 0.1, Aspartate Amino Transf (AST/SGOT) 14, Alanine Aminotransferase (ALT/SGPT) 15, Alkaline Phosphatase 57, Total Creatine Kinase 34, Creatine Kinase MB < 1.0, Creatine Kinase MB Relative Index 2.94, Troponin I < 0.02, Total Protein 5.8L, Albumin 3.0L, Albumin/Globulin Ratio 1.1L, Lipase 213 CBC/BMP Laboratory Tests 07/03/20 09:02 Microbiology Microbiology 07/03/20 Campylobacter (PCR), Received Pending 07/03/20 Clostridium difficile Toxin A&B PCR, Received Pending 07/03/20 Plesiomonas shigelloides (PCR), Received Pending 07/03/20 Salmonella (PCR)(BEVERLEY), Received Pending 07/03/20 Vibrio Species (PCR), Received Pending 07/03/20 Vibrio Cholerae (PCR), Received Pending 07/03/20 Yersinia enterocolitica (PCR), Received Pending 07/03/20 Enteroaggregative E. coli (PCR), Received Pending 07/03/20 Enteropathogenic E. coli (PCR), Received Pending 07/03/20 Enterotoxigenic E. coli (PCR), Received Pending 07/03/20 E. coli Shiga-like Toxin (PCR), Received Pending 07/03/20 Escherichia coli 0157 (PCR), Received Pending 07/03/20 Enteroinvasive E. coli/Shigella PCR, Received Pending 07/03/20 Cryptosporidium (PCR), Received Pending 07/03/20 Cyclospora cayetanensis (PCR), Received Pending 07/03/20 Entamoeba histolytica (PCR), Received Pending 07/03/20 Giardia lamblia (PCR), Received Pending 07/03/20 Adenovirus Type F 40/41 (PCR), Received Pending 07/03/20 Astrovirus (PCR), Received Pending 07/03/20 Norovirus GI/GII (PCR), Received Pending 07/03/20 Rotavirus A (PCR), Received Pending 07/03/20 Sapovirus I/II/IV/V (PCR), Received Pending Home Medications Scheduled Aspirin (Aspirin EC) 81 Mg Tablet.dr, 81 MG PO QHS Calcium Carbonate (Tums) 200 Mg Tab.chew, 500 MG PO BID LUNCH AND BEDTIME Ergocalciferol (Vitamin D2) (Vitamin D2) 50,000 Units Cap, 50,000 UNITS PO 1XWK ZANE Esomeprazole Magnesium (Nexium) 40 Mg Capsule.dr, 40 MG PO DAILY Furosemide (Furosemide) 40 Mg Tablet, 40 MG PO DAILY Metoprolol Tartrate (Metoprolol Tartrate) 25 Mg Tablet, 25 MG PO BID Mycophenolate Mofetil (Cellcept) 500 Mg Tablet, 1,000 MG PO BID Prednisone (Prednisone) 20 Mg Tablet, 20 MG PO DAILY Pyridostigmine [place] (Mestinon) 60 Mg Tablet, 60 MG PO QID Quetiapine Fumarate (Quetiapine Fumarate) 25 Mg Tablet, 25 MG PO QHS Rivaroxaban (Xarelto) 20 Mg Tablet, 20 MG PO QPM JUST RESTARTED TAKING ON 07/01/20 Allergies Coded Allergies: Contrast Media (Verified Allergy, Severe, cant breathe, 07/03/20) Penicillins (Verified Allergy, Severe, anaphlaxis, 07/03/20) cephalexin (Verified Allergy, Severe, anaphylaxis, 07/03/20) Sulfa (Sulfonamide Antibiotics) (Verified Allergy, Intermediate, rash, hives, 07/03/20) levofloxacin (Verified Allergy, Intermediate, hives, 07/03/20) Antihistamines - Alkylamine (Verified Allergy, Mild, rash, 07/03/20) nitrofurantoin (Verified Adverse Reaction, Intermediate, parasthesis, 07/03/20) clarithromycin (Verified Adverse Reaction, Mild, dyspepsia, 07/03/20) doxycycline (Verified Adverse Reaction, Mild, N/V, 07/03/20) famotidine (Verified Adverse Reaction, Mild, Vomiting, 07/03/20) meloxicam (Verified Adverse Reaction, Mild, N/V, 07/03/20) A-FIB/CHADSVASC A-FIB History Current/History of A-Fib/PAF?: No Current PO Anticoag Therapy: No HANNAH MACEDO MD Jul 03, 2020 15:30
[2020-07-03 16:33] LABS: HEMATOCRIT 36.1 % (36.0-47.0); HEMOGLOBIN 10.7 g/dl (12.0-15.5)
[2020-07-03] MEDS: HumaLOG INSULIN (NovoLOG) PER UNIT SC SCH (18:32)
[2020-07-03] MEDS: methylPREDNISolone 125MG 2ML VIAL IV SCH (18:37)
[2020-07-03] MEDS: PANTOPRAZOLE 40MG VIAL (C9113 PER 1) IV SCH (18:37)
[2020-07-03] MEDS: PYRIDOSTIGMINE 60 MG TAB PO SCH ×2 (18:59→22:08)
--- NOTE | 2020-07-03 19:26 | ECGEPIP ---
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
[2020-07-03] MEDS ORDERED: QUEtiapine FUMARATE 25 MG TAB PO SCH (21:00)
[2020-07-03] MEDS ORDERED: METOPROLOL TART 25 MG TABLET PO SCH (21:00)
[2020-07-03] MEDS ORDERED: HumaLOG INSULIN (NovoLOG) PER UNIT SC SCH (21:00)
[2020-07-03 22:00] VITALS: BP 110/50
[2020-07-03] MEDS: CALCIUM CARBONATE 500 MG CHEW U/D PO SCH (22:07)
[2020-07-03] MEDS: MYCOPHENOLATE MOFETIL 250 MG CAP (J7517) PO SCH (22:08)
[2020-07-04] MEDS: methylPREDNISolone 125MG 2ML VIAL IV SCH ×3 (00:25→16:00)
[2020-07-04 04:04] LABS: CLOSTRIDIUM DIFFICILE PCR NEGATIVE (NEGATIVE)
[2020-07-04 06:00] VITALS: BP 114/53
[2020-07-04 06:37] LABS: BASO % 0.1 % (0.0-1.0); HEMATOCRIT 39.1 % (36.0-47.0); HEMOGLOBIN 11.8 g/dl (12.0-15.5); LYMPH # 0.9 10^3/uL (1.5-5.0); LYMPH % 9.7 % (24.0-44.0); MEAN CORPUSCULAR HEMOGLOBIN 25.1 pg (27.0-33.0); MEAN CORPUSCULAR HGB CONC 30.2 g/dl (32.0-36.5); MEAN CORPUSCULAR VOLUME 83.2 fl (80.0-96.0); MONO # 0.2 10^3/uL (0.0-0.8); MONO % 2.4 % (0.0-5.0); NEUTROPHILS # 8.3 10^3/uL (1.5-8.5); NEUTROPHILS % 86.2 % (36.0-66.0); PLATELET COUNT, AUTOMATED 423 10^3/uL (150-450); WHITE BLOOD COUNT 9.6 10^3/uL (4.0-10.0)
[2020-07-04 07:00] LABS: ALBUMIN 2.3 GM/DL (3.2-5.2); ALT/SGPT 13 U/L (12-78); BILIRUBIN,TOTAL 0.2 MG/DL (0.2-1.0); BLOOD UREA NITROGEN 7 MG/DL (7-18); CALCIUM LEVEL 7.5 MG/DL (8.8-10.2); CARBON DIOXIDE LEVEL 26 MEQ/L (21-32); CHLORIDE LEVEL 114 MEQ/L (98-107); CREATININE FOR GFR 0.59 MG/DL (0.55-1.30); GLOMERULAR FILTRATION RATE > 60.0 (>32); GLUCOSE, FASTING 125 MG/DL (70-100); MAGNESIUM LEVEL 2.1 MG/DL (1.8-2.4); POTASSIUM SERUM 3.5 MEQ/L (3.5-5.1); SODIUM LEVEL 145 MEQ/L (136-145); TOTAL PROTEIN 5.2 GM/DL (6.4-8.2)
[2020-07-04] MEDS: NS 1,000 ML IV SCH (07:27)
[2020-07-04 09:00] VITALS: BP 96/50
[2020-07-04] MEDS ORDERED: FUROSEMIDE 40 MG TAB PO SCH (09:00)
[2020-07-04] MEDS ORDERED: predniSONE 20 MG TAB PO SCH (09:00)
[2020-07-04] MEDS: MYCOPHENOLATE MOFETIL 250 MG CAP (J7517) PO SCH (09:09)
[2020-07-04] MEDS: PYRIDOSTIGMINE 60 MG TAB PO SCH ×3 (09:09→17:27)
[2020-07-04] MEDS: HumaLOG INSULIN (NovoLOG) PER UNIT SC SCH ×3 (09:10→17:25)
[2020-07-04] MEDS: PANTOPRAZOLE 40MG VIAL (C9113 PER 1) IV SCH (09:10)
[2020-07-04] MEDS: CALCIUM CARBONATE 500 MG CHEW U/D PO SCH (13:21)
[2020-07-04 14:00] VITALS: BP 118/48
[2020-07-04] MEDS ORDERED: PANT40TA29 PO (15:25)
[2020-07-04] MEDS ORDERED: BUDE3CAP PO (15:25)
--- NOTE | 2020-07-04 15:27 | DS.PDOC ---
Discharge Summary General Date of Admission Jul 03, 2020 at 12:21 Discharge Summary PROCEDURES PERFORMED DURING STAY: [None]. ADMITTING DIAGNOSES: 1. . DISCHARGE DIAGNOSES: 1. . COMPLICATIONS/CHIEF COMPLAINT: Colitis, Gi Bleeding. HISTORY OF PRESENT ILLNESS: . HOSPITAL COURSE: . DISCHARGE MEDICATIONS: Please see below. ALLERGIES: Please see below. PHYSICAL EXAMINATION ON DISCHARGE: VITAL SIGNS: Please see below. GENERAL: HEENT: NECK: CARDIOVASCULAR EXAMINATION: RESPIRATORY EXAMINATION: ABDOMINAL EXAMINATION: EXTREMITIES: SKIN: NEUROLOGICAL EXAMINATION: PSYCHIATRIC EXAMINATION: LABORATORY DATA: Please see below. IMAGING: PROGNOSIS: ACTIVITY: [As tolerated]. DIET: DISCHARGE PLAN: DISPOSITION: . DISCHARGE INSTRUCTIONS: 1. . ITEMS TO FOLLOWUP ON ON OUTPATIENT: 1. . DISCHARGE CONDITION: [Stable]. TIME SPENT ON DISCHARGE: Greater than minutes. Vital Signs/I&Os Vital Signs Date Time Temp Pulse Resp B/P (MAP) Pulse Ox O2 Delivery O2 Flow Rate FiO2 07/04/20 14:00 97.4 55 16 118/48 (71) 96 Room Air I&O- Last 24 Hours up to 6 AM 07/04/20 06:00 Intake Total 3215 ml Output Total 475 ml Balance 2740 ml Laboratory Data Labs 24H Laboratory Tests 2 07/03/20 16:42: Bedside Glucose (Misc Panel) 112H 07/03/20 20:13: Bedside Glucose (Misc Panel) 96 07/04/20 02:57: Clostridium difficile [id number] PRESUMPTIVE NEGATIVE, Clostridium difficile Toxin (PCR) NEGATIVE 07/04/20 06:22: Immature Granulocyte % (Auto) 1.6, Neutrophils (%) (Auto) 86.2H, Lymphocytes (%) (Auto) 9.7L, Monocytes (%) (Auto) 2.4, Eosinophils (%) (Auto) 0.0, Basophils (%) (Auto) 0.1, Neutrophils # (Auto) 8.3, Lymphocytes # (Auto) 0.9L, Monocytes # (Auto) 0.2, Eosinophils # (Auto) 0.0, Basophils # (Auto) 0.0, Nucleated Red Blood Cells % (auto) 0.0, Anion Gap 5L, Glomerular Filtration Rate > 60.0, Calcium Level 7.5L, Magnesium Level 2.1, Total Bilirubin 0.2, Aspartate Amino Transf (AST/SGOT) 10, Alanine Aminotransferase (ALT/SGPT) 13, Alkaline Phosphatase 54, Total Protein 5.2L, Albumin 2.3#L, Albumin/Globulin Ratio 0.8L 07/04/20 11:45: Bedside Glucose (Misc Panel) 140H CBC/BMP Laboratory Tests 07/03/20 16:21 07/04/20 06:22 FSBS Laboratory Tests Test 07/03/20 16:42 07/03/20 20:13 07/04/20 11:45 Range/Units Bedside Glucose (Misc Panel) 112 96 140 83-110 MG/DL Microbiology Microbiology 07/03/20 Campylobacter (PCR), Received Pending 07/03/20 Clostridium difficile Toxin A&B PCR, Received Pending 07/03/20 Plesiomonas shigelloides (PCR), Received Pending 07/03/20 Salmonella (PCR)(BEVERLEY), Received Pending 07/03/20 Vibrio Species (PCR), Received Pending 07/03/20 Vibrio Cholerae (PCR), Received Pending 07/03/20 Yersinia enterocolitica (PCR), Received Pending 07/03/20 Enteroaggregative E. coli (PCR), Received Pending 07/03/20 Enteropathogenic E. coli (PCR), Received Pending 07/03/20 Enterotoxigenic E. coli (PCR), Received Pending 07/03/20 E. coli Shiga-like Toxin (PCR), Received Pending 07/03/20 Escherichia coli 0157 (PCR), Received Pending 07/03/20 Enteroinvasive E. coli/Shigella PCR, Received Pending 07/03/20 Cryptosporidium (PCR), Received Pending 07/03/20 Cyclospora cayetanensis (PCR), Received Pending 07/03/20 Entamoeba histolytica (PCR), Received Pending 07/03/20 Giardia lamblia (PCR), Received Pending 07/03/20 Adenovirus Type F 40/41 (PCR), Received Pending 07/03/20 Astrovirus (PCR), Received Pending 07/03/20 Norovirus GI/GII (PCR), Received Pending 07/03/20 Rotavirus A (PCR), Received Pending 07/03/20 Sapovirus I/II/IV/V (PCR), Received Pending Discharge Medications Scheduled Aspirin (Aspirin EC) 81 Mg Tablet.dr, 81 MG PO QHS, (Reported) Budesonide (Budesonide EC) 3 Mg Capdr...er, 3 CAP PO DAILY Calcium Carbonate (Tums) 200 Mg Tab.chew, 500 MG PO BID, (Reported) LUNCH AND BEDTIME Ergocalciferol (Vitamin D2) (Vitamin D2) 50,000 Units Cap, 50,000 UNITS PO 1XWK, (Reported) TUESDAY Esomeprazole Magnesium (Nexium) 40 Mg Capsule.dr, 40 MG PO DAILY, (Reported) Furosemide (Furosemide) 40 Mg Tablet, 40 MG PO DAILY, (Reported) Metoprolol Tartrate (Metoprolol Tartrate) 25 Mg Tablet, 25 MG PO BID, (Reported) Mycophenolate Mofetil (Cellcept) 500 Mg Tablet, 1,000 MG PO BID, (Reported) Pantoprazole Sodium (Pantoprazole Sodium) 40 Mg Tablet.dr, 40 MG PO BID Prednisone (Prednisone) 20 Mg Tablet, 20 MG PO DAILY, (Reported) Pyridostigmine [place] (Mestinon) 60 Mg Tablet, 60 MG PO QID, (Reported) Quetiapine Fumarate (Quetiapine Fumarate) 25 Mg Tablet, 25 MG PO QHS, (Reported) Allergies Coded Allergies: Contrast Media (Verified Allergy, Severe, cant breathe, 07/03/20) Penicillins (Verified Allergy, Severe, anaphlaxis, 07/03/20) cephalexin (Verified Allergy, Severe, anaphylaxis, 07/03/20) Sulfa (Sulfonamide Antibiotics) (Verified Allergy, Intermediate, rash, hives, 07/03/20) levofloxacin (Verified Allergy, Intermediate, hives, 07/03/20) Antihistamines - Alkylamine (Verified Allergy, Mild, rash, 07/03/20) nitrofurantoin (Verified Adverse Reaction, Intermediate, parasthesis, 07/03/20) clarithromycin (Verified Adverse Reaction, Mild, dyspepsia, 07/03/20) doxycycline (Verified Adverse Reaction, Mild, N/V, 07/03/20) famotidine (Verified Adverse Reaction, Mild, Vomiting, 07/03/20) meloxicam (Verified Adverse Reaction, Mild, N/V, 07/03/20) HANNAH MACEDO MD Jul 04, 2020 15:27
--- NOTE | 2020-07-07 10:07 | CR ---
DATE OF CONSULTATION: 07/03/2020 REASON FOR CONSULTATION: Probable hemorrhoidal bleeding. HISTORY OF PRESENT ILLNESS: The patient is an 79-year-old woman who has an underlying history of myasthenia gravis and paroxysmal atrial fibrillation. She has hyperlipidemia, a history of a transient ischemic attack (TIA), and presented to the emergency department complaining of a 2-3 day history of red blood per rectum as well as some diarrhea. The patient had been admitted back on June 17 with anemia after being seen in her primary physician's office. At that time, her hemoglobin and hematocrit were 6 and 21, and she received transfusion. She underwent evaluation with an esophagogastroduodenoscopy (EGD) and colonoscopy by Dr. Lopez on June 20. The upper endoscopy showed some minimal scattered antral gastritis. The colonoscopy revealed some inflammation of the colon and terminal ileum and patchy in distribution. She was also noted to have large internal hemorrhoids. Biopsies taken at that time showed fragments of mucosa with some inflammatory changes of unclear etiology. Because of her recurrent bleeding I was asked to see her. She describes primarily bleeding when she strains to have a bowel movement. She does have some hemorrhoidal tags exteriorly. MEDICATIONS: Prior to admission include: - 81 mg aspirin - budesonide - calcium carbonate chews - vitamin D - esomeprazole - Lasix - metoprolol tartrate - mycophenolate mofetil - pantoprazole - prednisone 20 mg daily - Mestinon - quetiapine fumarate ALLERGIES: Multiple and as listed in her [facility] record. MEDICAL HISTORY: Significant for: 1. Myasthenia gravis. 2. She has a history of paroxysmal atrial fibrillation. 3. She has gastroesophageal reflux. 4. She has a history of migraines. 5. She has osteopenia and hyperlipidemia. 6. She has a history of right hemispheric transient ischemic attack (TIA). SURGICAL HISTORY: Significant for: 1. Total hip replacement. 2. Cholecystectomy. 3. Hysterectomy with unilateral salpingo-oophorectomy. 4. Intertrochanteric nail for a fracture in September 2017. SOCIAL HISTORY: Patient is a former smoker who quit many years ago. She denies any alcohol use. FAMILY HISTORY: Without evidence of significant heritable disease. Her mother had lived to be 101 years old. REVIEW OF SYSTEMS: Patient denies any chest pain or palpitations. She has had no cough, wheezing, or sputum production. She denies any neurologic symptoms. She has noted red blood, which would drip when straining for a bowel movement. She is a little unclear as to how much tissue might prolapse with straining. She has been having bowel movements that have been recently somewhat loose. She denies urinary symptoms. PHYSICAL EXAMINATION: Reveals an elderly woman who is alert and seems to be appropriately oriented. She often asks me to repeat things, and I do not know if this is related to hearing or difficulty understanding me in my mask. Skin is warm and dry. Sclerae are anicteric. Heart exam reveals a regular rate and rhythm. The lungs are clear bilaterally. The abdomen is soft. The abdomen is nontender to palpation. There is no appreciable mass and no definite hernia is identified. Examination of the perineum shows three skin tags protruding at the anal verge. The largest of these is about 1.5 cm maximally. I see no evidence of definite fissure, and there are no definite external hemorrhoids present. I did not perform a digital exam given her recent colonoscopy. IMPRESSION: History of recent rectal bleeding with a colonoscopy 2 weeks ago, showing large internal hemorrhoids and some patchy inflammatory changes. I suspect based on her history that the bleeding occurs primarily with straining, that it is her hemorrhoids that are causing her bleeding. Her hematocrit has not dropped significantly, and she is not having any bleeding at this time. PLAN: I discussed with the patient that her bleeding is likely to be from her hemorrhoids. I discussed with her that for large hemorrhoids, it may be necessary to consider an operative hemorrhoidectomy in the operating room. She does not express enthusiasm at having surgery for her hemorrhoids at this point. We discussed that if she does not have further bleeding while off Xarelto, that it would be reasonable to at least address the possibility of stopping the Xarelto with her primary physician. It may not be possible to do so, and it may be that even stopping the Xarelto will not stop her bleeding. We agreed that we will monitor for any further bleeding overnight and re-discuss plans in the morning of July 04. AI
--- NOTE | 2020-07-07 11:15 | IPN ---
DATE: 07/04/2020 HISTORY: Patient is an 79-year-old woman who was admitted on the with evidence for rectal bleeding. I saw her yesterday evening in consultation. She had undergone colonoscopy about 2-1/2 weeks earlier for rectal bleeding and was found to have some patchy areas of inflammation in the terminal ileum and colon. She was also noted to have what were described as large internal hemorrhoids. Patient is normally on Xarelto for atrial fibrillation. Her Xarelto has been on hold at least since admission to the hospital. She reports no further bleeding since admission. VITAL SIGNS: Show that she has been afebrile. Her pulse is in the 60s generally. Blood pressure is good. INTAKE AND OUTPUT: Show that yesterday she had 2,400 in, half of it oral, and 475 of urine output was measured. She had two bowel movements overnight and this morning, which were described as small loose brown bowel movements. PHYSICAL EXAMINATION: Patient is sitting up looking quite comfortable in a chair at the bedside. She is alert and appears oriented. Repeat perineal exam is not performed today. LABORATORY STUDIES: CBC this morning showed white count 10, hemoglobin 12, hematocrit 39, which is actually slightly improved from yesterday evening. IMPRESSION: Patient was admitted because of a history of rectal bleeding with a drop in her hematocrit from recent levels. She has not had any bleeding overnight while off her Xarelto. It is likely that her bleeding is from her internal hemorrhoids. She does describe that when she strains to have a bowel movement, she will note bleeding, which is red blood dripping in the toilet. PLAN: The patient and I discussed the option of proceeding with some sort of surgical treatment for her hemorrhoids. She is not currently having any bleeding while off her Xarelto, so this is not an urgent requirement for treatment. I think it is likely that she will require something done to prevent recurrence of her bleeding. She indicated she would like to go home before considering any intervention. I recommended that she monitor for further bleeding. She should follow-up with her primary physician, who I believe is Dr. Ramsey to discuss the strength of her need for Xarelto ongoing into the future. If he feels that the Xarelto is necessary and she wishes to avoid further bleeding, then she should follow-up with me in the office to arrange for either banding of her hemorrhoids or possible hemorrhoidectomy. AI
[2020-07-08 16:08] LABS: CYTOMEGALOVIRUS IgG ANTIBODY >10.00 U/mL (0.00-0.59); CYTOMEGALOVIRUS IgM ANTIBODY <30.0 AU/mL (0.0-29.9); HSV TYPE I IgG SPECIFIC >62.20 index (0.00-0.90); HSV TYPE I IgM AB <1:10 titer (<1:10); HSV TYPE II IgM ABY <1:10 titer (<1:10)
[2020-07-09 15:08] LABS: CYTOMEGALOVIRUS IgM ANTIBODY <30.0 AU/mL (0.0-29.9); HSV TYPE I IgM AB <1:10 titer (<1:10); HSV TYPE II IgM ABY <1:10 titer (<1:10)
== END 2020-07-04 18:02 | disposition home or self-care (01) ==
LOC: M ED 07:57 → M ED INP 12:21 → ENRESERV 14:40 → M MSPAV 14:49
PROVIDERS: ADMIT Family Medicine; ATTEND Family Medicine
DX: K92.2 Gastrointestinal hemorrhage, unspecified (principal); G70.00 Myasthenia gravis without (acute) exacerbation; I48.0 Paroxysmal atrial fibrillation; Z79.01 Long term (current) use of anticoagulants; E78.5 Hyperlipidemia, unspecified; Z86.73 Personal history of transient ischemic attack (TIA), and cerebral infarction without residual deficits; K21.9 Gastro-esophageal reflux disease without esophagitis; R10.32 Left lower quadrant pain; R73.01 Impaired fasting glucose; Z87.891 Personal history of nicotine dependence; Z79.52 Long term (current) use of systemic steroids; Z79.82 Long term (current) use of aspirin; Z79.899 Other long term (current) drug therapy; Z91.041 Radiographic dye allergy status; Z88.0 Allergy status to penicillin; Z88.2 Allergy status to sulfonamides; Z88.8 Allergy status to other drugs, medicaments and biological substances
CPT/HCPCS: 36415; 74176; 80047; 80053; 80076; 82550; 82553; 83690; 83735; 84484; 85014; 85018; 85025; 85610; 86644; 86645; 86695; 86696; 86850; 86900; 86901; 87493; 87507; 93005; 93041; 96361; 96374; 96376; 97161; 99285; C9113; G0378; J2930; J7517

== ENCOUNTER → 2020-07-14 | Outpatient (REF) | payer MEDICARE, MEDICAID ==
[~2020-07-14] MED LIST changes: +ASPI81CH33 PO; +BUDE3CAP PO; +ESOM40CA35 PO; +NYST10CR TOP; +PANT40TA29 PO; +TUMS500C PO; +VALG1TAB PO
[2020-07-14 14:14] LABS: BASO % 0.3 % (0.0-1.0); EOS # 0.1 10^3/uL (0.0-0.5); EOS % 0.7 % (0.0-3.0); HEMATOCRIT 37.7 % (36.0-47.0); HEMOGLOBIN 11.3 g/dl (12.0-15.5); LYMPH # 1.4 10^3/uL (1.5-5.0); LYMPH % 11.8 % (24.0-44.0); MEAN CORPUSCULAR HEMOGLOBIN 25.5 pg (27.0-33.0); MEAN CORPUSCULAR VOLUME 85.1 fl (80.0-96.0); MONO # 0.9 10^3/uL (0.0-0.8); MONO % 7.3 % (0.0-5.0); NEUTROPHILS # 9.3 10^3/uL (1.5-8.5); NEUTROPHILS % 79.2 % (36.0-66.0); PLATELET COUNT, AUTOMATED 356 10^3/uL (150-450); RED BLOOD COUNT 4.43 10^6/uL (4.00-5.40); WHITE BLOOD COUNT 11.7 10^3/uL (4.0-10.0)
[2020-07-14 14:23] LABS: ALBUMIN 2.9 GM/DL (3.2-5.2); ALT/SGPT 16 U/L (12-78); BILIRUBIN,TOTAL 0.3 MG/DL (0.2-1.0); BLOOD UREA NITROGEN 15 MG/DL (7-18); C REACTIVE PROTEIN QUANTITATIV 1.86 MG/DL (0.00-0.30); CALCIUM LEVEL 8.2 MG/DL (8.8-10.2); CARBON DIOXIDE LEVEL 34 MEQ/L (21-32); CHLORIDE LEVEL 100 MEQ/L (98-107); GLOMERULAR FILTRATION RATE > 60.0 (>32); GLUCOSE, FASTING 116 MG/DL (70-100); NT-PRO BNP 499 PG/ML (<450); SODIUM LEVEL 140 MEQ/L (136-145); TOTAL PROTEIN 5.5 GM/DL (6.4-8.2)
[2020-07-14 14:57] LABS: ERYTHROCYTE SEDIMENTATION RATE 10 mm/hr (0-30)
== END ==
LOC: M PLALAB 11:13
PROVIDERS: ATTEND Family Medicine
DX: B25.8 Other cytomegaloviral diseases (principal)

== ENCOUNTER → 2020-07-18 | Outpatient (REF) | payer MEDICARE, MEDICAID ==
[~2020-07-18] MED LIST changes: +ACET325C5 PO
[2020-07-18 13:03] LABS: BASO % 0.3 % (0.0-1.0); EOS # 0.1 10^3/uL (0.0-0.5); EOS % 0.5 % (0.0-3.0); HEMOGLOBIN 11.1 g/dl (12.0-15.5); LYMPH # 0.9 10^3/uL (1.5-5.0); LYMPH % 8.3 % (24.0-44.0); MEAN CORPUSCULAR HEMOGLOBIN 25.2 pg (27.0-33.0); MEAN CORPUSCULAR HGB CONC 29.2 g/dl (32.0-36.5); MEAN CORPUSCULAR VOLUME 86.4 fl (80.0-96.0); MONO # 0.1 10^3/uL (0.0-0.8); MONO % 1.1 % (0.0-5.0); NEUTROPHILS # 9.3 10^3/uL (1.5-8.5); PLATELET COUNT, AUTOMATED 414 10^3/uL (150-450); WHITE BLOOD COUNT 10.5 10^3/uL (4.0-10.0)
[2020-07-18 13:32] LABS: ALBUMIN 2.9 GM/DL (3.2-5.2); ALT/SGPT 14 U/L (12-78); BILIRUBIN,TOTAL 0.3 MG/DL (0.2-1.0); BLOOD UREA NITROGEN 10 MG/DL (7-18); C REACTIVE PROTEIN QUANTITATIV 0.72 MG/DL (0.00-0.30); CALCIUM LEVEL 8.7 MG/DL (8.8-10.2); CARBON DIOXIDE LEVEL 34 MEQ/L (21-32); CHLORIDE LEVEL 104 MEQ/L (98-107); GLOMERULAR FILTRATION RATE > 60.0 (>32); GLUCOSE, FASTING 90 MG/DL (70-100); MAGNESIUM LEVEL 2.3 MG/DL (1.8-2.4); POTASSIUM SERUM 3.5 MEQ/L (3.5-5.1); SODIUM LEVEL 142 MEQ/L (136-145); TOTAL PROTEIN 5.7 GM/DL (6.4-8.2)
== END ==
LOC: M SFHCPLAZ 10:41
PROVIDERS: ATTEND Family Medicine
DX: B25.8 Other cytomegaloviral diseases (principal)
CPT/HCPCS: 36415; 80053; 83735; 85025; 86140; G0463

== ENCOUNTER 2020-07-23 06:33 | Inpatient (IN) | payer MEDICARE, MEDICAID ==
[~2020-07-23] VITALS: Ht 165.1 cm; Wt 59.3 kg
[~2020-07-23 06:33] MED LIST changes: -ACET325C5 PO; -ESOM40CA35 PO; -NYST10CR TOP; -VALG1TAB PO
[2020-07-23] MEDS ORDERED: ESOM40CA35 PO (07:05)
--- NOTE | 2020-07-23 08:39 | REP ---
INDICATION: FALL. COMPARISON: 06/16/2020.. TECHNIQUE: Single AP view. FINDINGS: The lungs are symmetrically aerated. No infiltrate is seen. Pulmonary vasculature slightly cephalized. Heart size is borderline. Pleural angles are sharp. No acute bony abnormality. There clips in right upper quadrant of the abdomen. IMPRESSION: No active cardiopulmonary disease seen. Mild cephalization of the pulmonary vasculature. Borderline heart size. <Electronically signed by Cosme Lemus > 07/23/20 0844
--- NOTE | 2020-07-23 08:41 | REP ---
INDICATION: pain/fall. COMPARISON: Comparison radiographs October 12, 2017.. TECHNIQUE: Four views. FINDINGS: Four views of the right femur demonstrate a right hip arthroplasty in place with components in good position with respect to each other in the [place] bones. No proximal femur fracture is seen.. However, there is a obliquely oriented fracture in the distal femoral diametaphyseal region with override. There is diffuse osteopenia.. . IMPRESSION: Obliquely oriented acute fracture of the distal femoral diametaphyseal region with slight override. Status post right hip arthroplasty.. <Electronically signed by Cosme Lemus > 07/23/20 0837
[2020-07-23 09:30] LABS: HEMATOCRIT 30.1 % (36.0-47.0); HEMOGLOBIN 8.9 g/dl (12.0-15.5); MEAN CORPUSCULAR HEMOGLOBIN 25.7 pg (27.0-33.0); MEAN CORPUSCULAR HGB CONC 29.6 g/dl (32.0-36.5); PLATELET COUNT, AUTOMATED 308 10^3/uL (150-450); RED BLOOD COUNT 3.46 10^6/uL (4.00-5.40); WHITE BLOOD COUNT 12.4 10^3/uL (4.0-10.0)
[2020-07-23 09:43] LABS: INR 0.96
[2020-07-23 09:44] LABS: PARTIAL THROMBOPLASTIN TIME 21.6 SECONDS (24.2-38.5)
--- NOTE | 2020-07-23 09:47 | REP ---
INDICATION: fall. COMPARISON: MRI brain 02/01/2018. TECHNIQUE: Standard noncontrast brain protocol with coronal reconstructions in soft tissue windows. FINDINGS: Lateral ventricles are midline, symmetric and moderately dilated, in proportion to the diffuse cerebral atrophy. Some heterogeneous low-attenuation white matter changes are noted bilaterally. Third and 4th ventricles were unremarkable. There is no evidence of an acute infarct, intracranial hemorrhage, mass or mass effect. Basal cisterns are intact. The cerebellum shows some atrophy but no hemorrhage or mass the posterior fossa bone windows show the mastoids frontal and sphenoid sinuses clear. There is some minor ethmoid sinus mucosal thickening. No fracture or focal bone lesion of the skull base or calvarium. Nasal septum is deviated towards the right. The orbits and contents unremarkable. IMPRESSION: 1. Cerebral and cerebellar atrophy with proportionate ventricular size and no acute infarct, intracranial hemorrhage mass or edema. 2. Chronic small vessel white matter ischemic changes. 3. No fracture skull base or calvarium. Some minor ethmoid sinus mucosal thickening. <Electronically signed by Flaco Ortiz > 07/23/20 0911
--- NOTE | 2020-07-23 09:49 | REP ---
INDICATION: fall. COMPARISON: Comparison CT study is from May 15, 2018.. TECHNIQUE: Helical scanning is acquired and overlapping 2 mm high resolution axial images were generated and reviewed at bone and soft tissue window settings. Coronal and sagittal multiplanar re-formations images are generated. FINDINGS: There is no evidence of cervical spine element fracture. No skull base fracture is seen. Cervical vertebral body heights are preserved. Alignment is normal. Facet joints are normally aligned bilaterally at each cervical level on multiplanar re-formations images. There is no evidence of intraspinal or paraspinal hematoma. No extra vertebral abnormality is seen. Degenerative disc disease is noted, most pronounced at C4-5 C5-6 and C6-7. There is osteoarthritis at the articulation between the dens and anterior arch of C1. Mild osteoarthritic facet hypertrophy is present diffusely. There is a small arthritis associated subcortical cyst on the left at C7. These findings are unchanged from the 2018 prior study. IMPRESSION: Degenerative spondylosis changes as noted above. No traumatic abnormality noted. No fracture seen. <Electronically signed by Cosme Lemus > 07/23/20 0913
[2020-07-23 10:21] LABS: ALBUMIN 2.6 GM/DL (3.2-5.2); ALT/SGPT 15 U/L (12-78); BILIRUBIN,TOTAL 0.5 MG/DL (0.2-1.0); BLOOD UREA NITROGEN 16 MG/DL (7-18); CALCIUM LEVEL 8.3 MG/DL (8.8-10.2); CARBON DIOXIDE LEVEL 31 MEQ/L (21-32); CHLORIDE LEVEL 107 MEQ/L (98-107); CK-MB VALUE MASS < 1.0 NG/ML (<3.6); CPK CREATINE PHOSPHOKINASE 34 U/L (26-192); GLOMERULAR FILTRATION RATE > 60.0 (>32); GLUCOSE, FASTING 109 MG/DL (70-100); MB/CK RELATIVE INDEX 2.94 (< OR =4); SODIUM LEVEL 143 MEQ/L (136-145); TOTAL PROTEIN 4.9 GM/DL (6.4-8.2); TROPONIN I < 0.02 NG/ML (< 0.10)
[2020-07-23] MEDS ORDERED: NS 1,000 ML IV ONE (10:30)
--- NOTE | 2020-07-23 10:32 | REP ---
INDICATION: fall. COMPARISON: X-ray 07/23/2020 TECHNIQUE: Axial CT images with coronal and sagittal reconstructions in bone window setting FINDINGS: There is no bleed fracture of the distal femoral diaphysis with a small butterfly fragment anteriorly. The distal fragment is displaced anteriorly the fracture line extends from the diaphysis into the metaphysis of the lateral femoral condyle. It does not extend into the intercondylar notch. The medial femoral condyle is preserved. Tibial plateau and proximal fibula show no fracture. There is no patellar subluxation or dislocation. Small joint effusion noted. IMPRESSION: 1. Linear oblique fracture of the distal femur from the distal diaphysis into the metaphysis of the lateral femoral condyle extending from medial to lateral. There is a small butterfly fragment anteriorly. The distal fragment is displaced anteriorly by about a half shaft width on the axial images and is slightly angulated medially. Patella, proximal tibia and fibula were intact. There is a small joint effusion. No other findings. <Electronically signed by Flaco Ortiz > 07/23/20 1020
[2020-07-23] MEDS ORDERED: NYST10CR TOP (10:49)
[2020-07-23] MEDS ORDERED: VALG1TAB PO (10:49)
[2020-07-23] MEDS ORDERED: MOM 30ML SUSPENSION UDC PO PRN (11:15)
--- NOTE | 2020-07-23 12:38 | HPEPDOC ---
General Date of Admission 07/23/20 Date of Service: Jul 23, 2020 Chief Complaint The patient is a 79-year-old female admitted with a reason for visit of FELL. 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 She complains of right thigh pain and stiffness, and muscle spasms on mild movement. She had 8/10 pain, sharp throbbing pain on moving her right leg. She was found to have right distal femoral fracture. Home Medications Scheduled Aspirin (Aspirin EC) 81 Mg Tablet.dr, 81 MG PO QHS, (Reported) Calcium Carbonate (Tums) 200 Mg Tab.chew, 500 MG PO BID, (Reported) LUNCH AND BEDTIME Ergocalciferol (Vitamin D2) (Vitamin D2) 50,000 Units Cap, 50,000 UNITS PO 1XWK, (Reported) TUESDAY Esomeprazole Magnesium (Esomeprazole Magnesium Dr) 40 Mg Capsule.dr, 40 MG PO DAILY, (Reported) Furosemide (Furosemide) 40 Mg Tablet, 40 MG PO DAILY, (Reported) Metoprolol Tartrate (Metoprolol Tartrate) 25 Mg Tablet, 25 MG PO BID, (Reported) Mycophenolate Mofetil (Cellcept) 500 Mg Tablet, 1,000 MG PO BID, (Reported) Nystatin (Nystatin) 15 Gm Cream..g., 1 DOSE TOP TID, (Reported) APPLY TO PERIANAL AREA Prednisone (Prednisone) 20 Mg Tablet, 20 MG PO DAILY, (Reported) Pyridostigmine [place] (Mestinon) 60 Mg Tablet, 60 MG PO QID, (Reported) Quetiapine Fumarate (Quetiapine Fumarate) 25 Mg Tablet, 25 MG PO QHS, (Reported) Valganciclovir HCl (Valganciclovir HCl) 450 Mg Tablet, 900 MG PO BID, (Reported) FILLED 07/11 FOR 21 DAYS Allergies Coded Allergies: Contrast Media (Verified Allergy, Severe, cant breathe, 07/03/20) Penicillins (Verified Allergy, Severe, anaphlaxis, 07/03/20) cephalexin (Verified Allergy, Severe, anaphylaxis, 07/03/20) Sulfa (Sulfonamide Antibiotics) (Verified Allergy, Intermediate, rash, hives, 07/03/20) levofloxacin (Verified Allergy, Intermediate, hives, 07/03/20) Antihistamines - Alkylamine (Verified Allergy, Mild, rash, 07/03/20) nitrofurantoin (Verified Adverse Reaction, Intermediate, parasthesis, 07/03/20) clarithromycin (Verified Adverse Reaction, Mild, dyspepsia, 07/03/20) doxycycline (Verified Adverse Reaction, Mild, N/V, 07/03/20) famotidine (Verified Adverse Reaction, Mild, Vomiting, 07/03/20) meloxicam (Verified Adverse Reaction, Mild, N/V, 07/03/20) Past Medical History Medical History 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 Gastritis Hemorrhoids MG, GENERALIZED-ONSET 01/2018 ATRIAL FIBRILLATION, PAROXYSMAL-NEW ONSET 01/2019-NORMAL TTE (LA 30)- [facility] 01/2019 GERD/DYSPEPSIA HIATAL HERNIA, MILD TERTIARY WAVES/ MIGRAINE HEADACHE OSTEOPENIA HYPERLIPIDEMIA 2B IMPAIRED FASTING GLUCOSE H/O RIGHT HEMISPHERIC TIA-2008 ALLERGIC RHINITIS THORACIC/LUMBER DJD CERVICAL [id number] C3-7, R C5/6 MILD NF NARROWING BY 09/2015 XRAY RIGHT SHOULDER PARTIAL SUPRASPINATUS TEAR, A.C. JOINT ARTHRITIS AND IMPINGEMENT BY MRI FEBRUARY 2011 B MARKED HIP OA SP B/L THR RAYNAUD'S PHENOMENON L DISTAL RADIUS, ULNA COMMINUTED FX C POSTERIOR DISPLACEMENT 11/07/19 S/P MECHANICAL FALL ON ICE Had Cast. Surgical History TOTAL HYSTERECTOMY, WITH USO CHOLECYSTECTOMY APPENDECTOMY COLONOSCOPY/EGD WITH GASTRITIS, GASTRIC POLYP, DUODENITIS, REDUNDANT COLON, INTERNAL HEMORRHOIDS-SADE 07/2006 EGD/COLONOSCOPY-GRADE II INTERNAL HEMORRHOIDS, BILE GASTRITIS-MILD CHRONIC GASTRITIS, - H PYLORI-SADE 12/2013 R ROTATOR CUFF REPAIR-DEVANTE 06/2012 L [id number] 06/29/2016 OPEN REDUCTION R HIP IT FRACTURE C CEPHALOMEDDULLARY NAIL PLACEMENT- JUSTIN (SONYA) 10/11/17 R THR AND REMOVAL OF INTRAMEDULLARY DEVICE-DR. UZMA LONGO 11/20/18 Family History FATHER: , DIAGNOSED WITH HYPERTENSION, HEART DISEASE, LUNG CA MOTHER: 101 YRS, 2 LUNG CANCER Social History * Smoker: Denies Alcohol: Denies Drugs: denies A-FIB/CHADSVASC A-FIB History Current/History of A-Fib/PAF?: Yes Current PO Anticoag Therapy: No Review of Systems Constitutional: Denies: Chills, Fever, Night Sweats Eyes: Denies: Pain, Vision change ENT: Reports: Sinus Congestion, Post Nasal Drip Skin: Denies: Rash, Lesions, Breakdown Pulmonary: Denies: Dyspnea, Cough Cardiovascular: Denies: Chest Pain, Palpitations, Orthopnea, Paroxysmal Noc. Dyspnea Gastrointestinal: Denies: Nausea, Vomiting, Abdominal Pain, Diarrhea Genitourinary: Denies: Dysuria, Frequency, Incontinence, Retention Hematologic: Denies: Bruising, Bleeding Excessively Musculoskeletal: Reports: Leg Pain (right) Physical Examination General Exam: Positive: Alert, Cooperative, No Acute Distress Eye Exam: Positive: PERRLA, Conjunctiva & lids normal, EOMI; Negative: Sclera icteric ENT Exam: Positive: Atraumatic, Mucous membr. moist/pink, Pharynx Normal Neck Exam: Positive: Supple; Negative: JVD, thyromegaly Chest Exam: Positive: Clear to auscultation, Normal air movement Heart Exam: Positive: Bradycardic, Regular Rhythm, Normal S1, Normal S2; Negative: Murmurs, Rubs Abdomen Exam: Positive: Normal bowel sounds, Soft; Negative: Tenderness, Hepatospenomegaly Extremity Exam: Positive: Edema, Swelling (right thigh) Skin Exam: Positive: Nl turgor and temperature; Negative: Breakdown, Lesion Vital Signs Vital Signs Date Time Temp Pulse Resp B/P (MAP) Pulse Ox O2 Delivery O2 Flow Rate FiO2 07/23/20 07:00 96.9 57 19 98 Room Air 07/23/20 06:46 143/64 Laboratory Data Labs 24H Laboratory Tests 2 07/23/20 08:15: Nucleated Red Blood Cells % (auto) 0.0, Prothrombin Time 13.0, Prothromb Time International Ratio 0.96, Activated Partial Thromboplast Time 21.6L, Anion Gap 5L, Glomerular Filtration Rate > 60.0, Calcium Level 8.3L, Total Bilirubin 0.5, Aspartate Amino Transf (AST/SGOT) 10, Alanine Aminotransferase (ALT/SGPT) 15, Alkaline Phosphatase 38L, Total Creatine Kinase 34, Creatine Kinase MB < 1.0, Creatine Kinase MB Relative Index 2.94, Troponin I < 0.02, Total Protein 4.9L, Albumin 2.6L, Albumin/Globulin Ratio 1.1L, Thyroid Stimulating Hormone (TSH) 1.520 CBC/BMP Laboratory Tests 07/23/20 08:15 Assessment/Plan 79 year old female with multiple medical problems including Paroxysmal Afib,TIA, Myasthenia gravis on chronic immunosuppression, 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 She complains of right thigh pain and stiffness, and muscle spasms on mild movement. She had 8/10 pain, sharp throbbing pain on moving her right leg. She was found to have right distal femoral fracture. Medical clearance patient has h/o TIA, No h/o CAD, No CHF, no CKD, no DM Moderate risk for cardiac events. EKG sinus bradycardia Patient will need stress dose steroids 1 dose before surgery then for 24 hours after surgery as she is on chronic prednisone therapy. Patient medically optimized for surgery Right distal femoral fracture planned for OR today by Dr Rowdy Tolbert Post op dvt prophylaxis and pain control as per orhto Paroxysmal Afib now with sinus bradycardia will hold metoprolol Acute blood loss Anemia due to blood loss in fracture hematoma will transfuse 2 units. Myasthenia gravis continue steroid and pyridostigmine will hold cellcept for 1 week for wound healing CMV ileocolitis continue Valganciclovir GERD/Hiatal hernia continue PPI Plan / VTE VTE Prophylaxis Ordered?: Yes CRISTIN ROMAN MD Jul 23, 2020 10:39
[2020-07-23] MEDS ORDERED: HYDROCORTISONE 100 MG/2 ML VIAL (J1720 PER 1) IV ONE (14:00)
[2020-07-23] MEDS: PYRIDOSTIGMINE 60 MG TAB PO SCH ×3 (14:14→22:54)
[2020-07-23] MEDS ORDERED: ceFAZolin 1GM VIAL (J0690 PER 500MG) As Ordered ONE (14:31)
[2020-07-23 15:10] VITALS: BP 121/53
[2020-07-23] MEDS ORDERED: MIDAZOLAM INJ 2MG/2ML VIAL (J2250 PER 1MG) As Ordered ONE (15:16)
[2020-07-23] MEDS ORDERED: LIDOCAINE 2% 100MG/5ML SDV (FOR ANES.) As Ordered ONE (15:16)
[2020-07-23] MEDS ORDERED: fentaNYL 100 MCG/2 ML INJECTION (J3010) As Ordered ONE (15:16)
[2020-07-23] MEDS ORDERED: propofoL 200 MG/20 ML VIAL As Ordered ONE ×2 (15:16→18:09)
[2020-07-23] MEDS ORDERED: KETAMINE HCL 200 MG/20 ML VIAL As Ordered ONE (15:16)
[2020-07-23 15:29] VITALS: BP 105/47
[2020-07-23] MEDS ORDERED: VANCOMYCIN 1000MG/20ML VIAL As Ordered ONE (16:15)
[2020-07-23] MEDS ORDERED: CLINDAMYCIN INJ 900MG/6ML VIAL As Ordered ONE (16:17)
[2020-07-23] MEDS ORDERED: VANCOMYCIN HCL 1,000 MG, VIAL MATE ADAPTER 1 EACH in D5W 250 ML IV ONE (16:20)
[2020-07-23] MEDS ORDERED: ePHEDrine SULFATE 25 MG/5 ML(5MG/ML) SYRINGE As Ordered ONE (17:09)
[2020-07-23] MEDS ORDERED: PHENYLephrine HCL 500 MCG/5 ML (100MCG/ML) SYRINGE (J2370) As Ordered ONE ×2 (17:09→18:01)
[2020-07-23] MEDS ORDERED: ONDANSETRON 4MG/2ML VIAL As Ordered ONE (17:15)
[2020-07-23] MEDS ORDERED: ACETAMINOPHEN 1000MG 100ML IV BTL (OFIRMEV) (J0131 PER 10MG) As Ordered ONE (17:17)
[2020-07-23] MEDS ORDERED: LR 1,000 ML IV SCH ×2 (20:00→20:30)
[2020-07-23] MEDS ORDERED: ONDANSETRON 4MG/2ML VIAL IV PRN (20:00)
[2020-07-23] MEDS ORDERED: fentaNYL 100 MCG/2 ML INJECTION (J3010) IV PRN (20:00)
--- NOTE | 2020-07-23 20:02 | REP ---
INDICATION: POST OP ORIF PACU 2239. COMPARISON: Earlier same day TECHNIQUE: AP and lateral views FINDINGS: Internal fixation plate and multiple of fixing screws are seen with the fixing wires reducing a previously described distal femoral fracture. The alignment is near anatomical. A skin staple line is seen laterally. IMPRESSION: Status post ORIF <Electronically signed by Thierry Hill > 07/23/201957
[2020-07-23 20:30] VITALS: BP 120/54
[2020-07-23] MEDS ORDERED: MORPHINE 2 MG/ML 1ML VIAL (J2270) IV PRN (20:30)
[2020-07-23] MEDS ORDERED: NORCO, ANEXSIA 5/325MG TABLET (HYDROcodone/ACETAMINOPHEN) PO PRN ×2 (20:30)
--- NOTE | 2020-07-23 20:38 | ECGEPIP ---
[facility] - ED Test Date: 2020-07-23 Pat Name: COLBY MULLER Department: Room: - Gender: Female Materials Director: sergio : 1940 Requested By: LUKASZ Tovar Order Number: [id number] Reading MD: Lukasz Phoenix Measurements Intervals [place] Rate: 50 P: NE: 0 QRS: -10 QRSD: 84 T: 5 QT: 428 QTc: 392 Interpretive Statements Sinus bradycardia Electronically Signed on 07-23-2020 20:38:22 EST by Lukasz Phoenix
[2020-07-23 21:00] VITALS: BP 119/54
[2020-07-23 22:00] VITALS: BP 114/55
[2020-07-23] MEDS: QUEtiapine FUMARATE 25 MG TAB PO SCH (22:54)
[2020-07-23] MEDS: ValGANciclovir HYDROCHLORIDE 450MG TABLET PO SCH (22:56)
[2020-07-23] MEDS: HYDROCORTISONE 100 MG/2 ML VIAL (J1720 PER 1) IV SCH (22:56)
[2020-07-23] MEDS: SENOKOT S TAB PO SCH (22:56)
[2020-07-23 23:00] VITALS: BP 118/58
[2020-07-24] VITALS: BP 122/60
[2020-07-24 02:00] VITALS: BP 120/62
[2020-07-24] MEDS: VANCOMYCIN HCL 1,000 MG, VIAL MATE ADAPTER 1 EACH in D5W 250 ML IV SCH ×2 (03:28→16:30)
[2020-07-24] MEDS: HYDROCORTISONE 100 MG/2 ML VIAL (J1720 PER 1) IV SCH ×3 (05:53→21:04)
[2020-07-24 06:00] VITALS: BP 112/45
[2020-07-24] MEDS: ACETAMINOPHEN 500 MG TAB PO SCH ×3 (06:23→21:05)
--- NOTE | 2020-07-24 06:56 | CR ---
DATE OF CONSULTATION: 07/23/2020 REASON FOR CONSULTATION: Right distal femur fracture. HISTORY OF PRESENT ILLNESS: She is an 79-year-old female who took a fall at home where she lives with her two sons and complains of pain and soreness of her right knee. She was brought to the Emergency Room and was seen by Dr. Robin Phoenix, the Emergency Room physician. X-rays showed a distal femur fracture and he called me because of that injury. She complains only of isolated soreness of the right hip. Denies loss of consciousness or other injury or other complaints of pain or soreness. Relevant orthopedic history is she two years ago underwent open reduction, internal fixation (ORIF) of a right intertrochanteric hip fracture and that healed but subsequently went on to needing a right total hip replacement on the same side. 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 She is on some antiviral medications for that presently. She has been on it for about ten days. PAST MEDICAL HISTORY: Otherwise significant for myasthenia gravis, history of atrial fibrillation, but she is no longer in atrial fibrillation. History of hyperlipidemia, history of a TIA. PAST SURGICAL HISTORY: She had a right hip ORIF followed by total hip replacement. She has had a cholecystectomy and a total abdominal hysterectomy. SOCIAL HISTORY: She does not smoke or drink alcohol excessively. Lives with her sons as mentioned. ALLERGIES: There are multiple, PENICILLIN, CEPHALEXINS, SULFA as well as to LEVOFLOXACIN, ANTIHISTAMINES, NITROFURANTOIN, CLARITHROMYCIN, DOXYCYCLINE, FAMOTIDINE, MELOXICAM, CONTRAST MEDIA. MEDICATIONS: - Baby aspirin - Calcium - Vitamin D - Omeprazole - Furosemide - Metoprolol - CellCept - Nystatin - Prednisone - Mestinon - Quetiapine - Valganciclovir She is not on anticoagulants. PHYSICAL EXAMINATION: She is an elderly pleasant female lying in her bed in the Emergency Room. She does not seem to be in much acute distress. She is alert. She answers her questions but somewhat hard of hearing. Vital signs: Temperature 96.9, pulse 57, respirations 19, O2 saturations were 98%, blood pressure 143/64. HEENT: She is normocephalic, atraumatic. Extraocular muscles grossly unremarkable. Oropharynx is benign. There is no trauma or tenderness noted to her neck or head. She can elevate her arms up over her head. There is no acute pain of her shoulders, elbows, wrists, or hands. Abdomen was nontender. Chest was nontender. Pelvis was nontender but her right leg was externally rotated with some tenderness and swelling of the distal thigh. The skin was intact distally. She had dorsalis pedis pulses and she could actually dorsiflex and plantar flex her ankle and her toes, and she has sensation to the dorsum and plantar surface of her foot. It was well perfused. LABORATORY DATA: Hematocrit was 30.1, white count 12.4, platelets 308. Sodium 143, potassium 3.0, chloride 107, bicarb 31, BUN 10, creatinine 0.7, glucose 109, calcium 8.3. Albumin 2.6. EKG showed bradycardia. Chest x-ray showed no acute disease. Head CT showed no acute disease. C spine CT scan showed no acute disease. Her femur x-ray however showed the long oblique fracture of the distal femur. It seemed to be metaphyseal. It does not seem to enter into the intercondylar notch. The CT scan confirmed that there is no intercondylar displacement or fracture. IMPRESSION: Right distal femur fracture in an elderly female. This is below a total hip replacement stem. She is on immune suppressants and she is high risk for infection. She is also on Prednisone which I failed to mention in her medication report for myasthenia. PLAN: I discussed the case with Dr. Ocampo but she feels that she is medically optimized presently for surgery. I do recommended getting her some blood transfusion given her relatively low hematocrit. This operation will likely lose some blood. I discussed this also with her son and that there is a risk of doing these types of surgeries in elderly patients, the risk of infection, damage to nerves, blood vessels, anesthetic complications, phlebitis, embolism, heart attack, and amongst others. He understands that but we got a telephone consent from the son with Catherine Silverman the nurse to help with the telephone consent witness as well as permission to do blood transfusion if needed. I asked Dr. Ocampo if it is okay to hold her immune suppressant medications in the perioperative period to help minimize risk of infection and to help and allow better chance for wound and bone healing, and I also discussed with her managing the steroids perioperatively. AI
[2020-07-24 07:33] LABS: BASO % 0.2 % (0.0-1.0); HEMATOCRIT 30.3 % (36.0-47.0); HEMOGLOBIN 9.3 g/dl (12.0-15.5); LYMPH # 1.3 10^3/uL (1.5-5.0); LYMPH % 11.1 % (24.0-44.0); MEAN CORPUSCULAR HEMOGLOBIN 26.1 pg (27.0-33.0); MEAN CORPUSCULAR HGB CONC 30.7 g/dl (32.0-36.5); MEAN CORPUSCULAR VOLUME 84.9 fl (80.0-96.0); MONO # 0.1 10^3/uL (0.0-0.8); MONO % 0.7 % (0.0-5.0); NEUTROPHILS # 10.5 10^3/uL (1.5-8.5); NEUTROPHILS % 87.4 % (36.0-66.0); PLATELET COUNT, AUTOMATED 223 10^3/uL (150-450); RED BLOOD COUNT 3.57 10^6/uL (4.00-5.40)
[2020-07-24 07:55] LABS: BLOOD UREA NITROGEN 8 MG/DL (7-18); CALCIUM LEVEL 7.9 MG/DL (8.8-10.2); CARBON DIOXIDE LEVEL 28 MEQ/L (21-32); CHLORIDE LEVEL 110 MEQ/L (98-107); GLOMERULAR FILTRATION RATE > 60.0 (>32); GLUCOSE, FASTING 122 MG/DL (70-100); POTASSIUM SERUM 3.2 MEQ/L (3.5-5.1); SODIUM LEVEL 144 MEQ/L (136-145)
--- NOTE | 2020-07-24 07:56 | REP ---
INDICATION: ORIF RIGHT DISTAL FEMUR. FINDINGS: Internal fixation plate with multiple internally fixing screws and wires are noted affixing a previously described femoral fracture. The alignment is near anatomical. 38.9 seconds of fluoroscopy time was provided for the examination. IMPRESSION: As above <Electronically signed by Thierry Hill > 07/24/20 0751
[2020-07-24] MEDS ORDERED: POTASSIUM CHLORIDE 10 MEQ SR TABLET PO ONE (08:30)
[2020-07-24] MEDS: PYRIDOSTIGMINE 60 MG TAB PO SCH ×4 (08:40→21:04)
[2020-07-24] MEDS: ValGANciclovir HYDROCHLORIDE 450MG TABLET PO SCH ×2 (08:40→17:10)
[2020-07-24] MEDS: PANTOPRAZOLE 40MG TAB (PROTONIX) PO SCH (08:40)
[2020-07-24] MEDS: MIRALAX *UNIT DOSE* 17GM PACKET PO SCH (08:51)
[2020-07-24] MEDS: SENOKOT S TAB PO SCH ×2 (08:52→21:00)
--- NOTE | 2020-07-24 10:21 | RO ---
DATE OF OPERATION: 07/23/2020 PREOPERATIVE DIAGNOSIS: Right distal femur fracture. POSTOPERATIVE DIAGNOSIS: Right distal femur fracture. PROCEDURE: Open reduction, internal fixation of right distal femur fracture using a Synthes distal femoral locking condylar plate with eight holes. SURGEON: Petr Johnson MD PLANTING MATERIAL CARRIER: Dr. Silvestre Bertrand and Ms. Shira Ruelas ANESTHESIA: Spinal. ESTIMATED BLOOD LOSS: 300 mL; Replaced two units of packed red blood cells. COMPLICATIONS: None. FINDINGS: She had a long, oblique, comminuted fracture of the distal femur. DESCRIPTION OF PROCEDURE: Vancomycin was given intravenously preoperatively. Discussion with the hospitalist regarding need for stress-dose steroids and holding immunosuppressant medications was made and she was felt to be cleared for the operating room. She was taken to the operating room where she underwent a spinal anesthetic. She was placed on a Geraldo table with a bump under the right hip and then the right lower extremity was very carefully prepped and draped in the usual sterile fashion. Stockinette was used over the foot. Ioban covered any exposed skin of the femur. After appropriate timeout, we then made a longitudinal incision laterally beginning just at the lateral joint line extending proximally. Bovie cautery was used to coagulate crossing vessels down to the deep fascia. The deep tensor fascia was then divided and underlying this, the vastus lateralis musculature was identified. Distally, an arthrotomy was performed. The distal spike of the fracture was protruding just at the lateral epicondyle. Then, I carefully worked from distal to proximal carefully reflecting the vastus lateralis muscle over the anterior aspect of the femur. I carefully removed the muscle tissue from the posterior ostium septum and I advanced proximally taking great care to identify any perforating neurovascular bundles. I did identify one computer customer support specialist very proximally which was clamped and then tied with a Vicryl reel and Bovie cauterized. Once adequate exposure of the entire fracture site was felt to be obtained adequately, we copiously irrigated out the fracture fragment. There was an anterior comminuted, long oblique spike anteriorly and a bit medially and proximally, and there was a cortical piece absent more distally and laterally. Dr. Silvestre Bertrand was present at this point in the procedure and to help me perform an anatomic open reduction of the fracture. Initially, we could get an anatomic reduction, held it with two bone clamps and actually was able to piece in the loose cortical proximal anterior fragment such that we used that as a template to make sure our reduction was anatomic. It actually keyed in anatomically once we had adequate reduction of the fracture. At this point, then I estimated an eight-hole plate would be adequate and then we had to secure the stability of the fracture to release the clamps to allow the plate to be applied. It looked as if the oblique nature of this fracture would allow lag fixation through the plate. Thus, I felt it best to hold the fracture reduced was to place two 18-gauge cerclage wires circumferentially around the femur using the cable-passing set. Very carefully, I first placed the proximal cerclage wire making sure I ran it against bone posteriorly and then used the Jet Wire small business director to secure the fracture site and then more distally to this I secured a second 18-gauge wire. At this point, we could release the clamps and then confirmed anatomic reduction with the fluoroscope both in the AP plane and the lateral plane. I then applied the plate across the fracture site and held it with a plate- holding clamp and adjusted the plate proximally and distally, and anteriorly and posteriorly with the help of the fluoroscope to make sure it was anatomically placed. Once I was satisfied with the placement, the distal locking holes were filled with the K-wire guides and threaded into the anterior distal hole as well as the central condylar hole and then K-wires placed and under fluoroscopic imaging, we confirmed that they were in good position with a true lateral of the knee and an AP view of the knee. I measured with the assistance of the fluoroscope as well as the measuring guide and first placed the locking screw distally and anteriorly and then the condylar locking screw was then placed. I then placed a third locking screw more posteriorly. I avoided the far posterior flange because it appeared it might go through the posterior intercondylar notch. This was done again using the K-wire drill guides and then measuring under fluoroscopic guidance and then placing the screw. At this point then we secured most proximal hole using a 4.5 cortical screw thereby securing the plate solidly to the bone across the fracture site. I then addressed the lag screw fixation through the plate distally. This was done by using the drill and by palpating digitally along the medial side of the femur. Three 4.5 cortical lag screws were placed across the fracture site in this location. And then I placed two locking screws more proximally using the drill guides and then the measuring devices, and then another locking screw was placed more distally right at the metaphyseal flange again using the K-wire and the measuring guide and confirming good position with the fluoroscope. Excellent secure fixation of the fracture was felt to have been obtained. At this point, the knee was stable as I brought the knee through a range of motion and rotation. Fluoroscopic final images were then provided in both AP and lateral planes confirming a good reduction. A copious amount of sterile saline irrigant solution with clindamycin was instilled in the wound throughout the operation as well as at the conclusion making sure there was a good thorough debridement and then we closed the tensor fascia with a running and interrupted #1 PDS sutures including distally the joint was closed using #1 PDS sutures. Subdermal tissues were closed with interrupted 2-0 PDS sutures and gregoria were used in the skin covered by adaptic; dry, sterile, bulky dressing and a large knee immobilizer applied. She was then transferred to the recovery room in stable condition. There were no intraoperative complications. Dr. Bertrand was critical for the success of this very difficult and long operation by helping with the reduction of the fracture, helping hold the clamps, held the drill, measure and help to pass screws as needed so I could perform the operating smoothly, efficiently and safely, and accurately as was Ms. Shira Ruelas. AI
--- NOTE | 2020-07-24 11:46 | IPNPDOC ---
Subjective Date Seen The patient was seen on 07/24/20. Subjective Chief Complaint/HPI No issues overnight. Appeared a little confused this morning was trying to pull down the dressing thinking it is her pants. I reminded her about her surgery but did not seem to comprehend it. Had difficulty with PT difficulty in remembering instructions and learning. Pain controlled Objective Physical Examination General Exam: Positive: Alert, Cooperative, No Acute Distress Eye Exam: Positive: PERRLA, Conjunctiva & lids normal, EOMI; Negative: Sclera icteric ENT Exam: Positive: Atraumatic, Mucous membr. moist/pink, Pharynx Normal Neck Exam: Positive: Supple; Negative: JVD, thyromegaly Chest Exam: Positive: Clear to auscultation, Normal air movement Heart Exam: Positive: Bradycardic, Regular Rhythm, Normal S1, Normal S2; Negative: Murmurs, Rubs Abdomen Exam: Positive: Normal bowel sounds, Soft; Negative: Tenderness, Hepatospenomegaly Extremity Exam: Positive: Edema, Swelling (right thigh) Skin Exam: Positive: Nl turgor and temperature; Negative: Breakdown, Lesion Assessment /Plan Assessment 79 year old female with multiple medical problems including Paroxysmal Afib,TIA, Myasthenia gravis on chronic immunosuppression, 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 She complains of right thigh pain and stiffness, and muscle spasms on mild movement. She had 8/10 pain, sharp throbbing pain on moving her right leg. She was found to have right distal femoral fracture. Right distal femoral long comminuted fracture s/p OR on 07/23/20 Open reduction, internal fixation of right distal femur fracture using a Synthes distal femoral locking condylar plate with eight holes. Post op dvt prophylaxis and pain control as per ortho Paroxysmal Afib now with sinus bradycardia will hold metoprolol Acute blood loss Anemia due to blood loss in fracture hematoma transfused 1 units. post op HH stable Myasthenia gravis continue steroid and pyridostigmine will hold cellcept for 1 week for wound healing current on stress dose steroid for today then will change to prednisone from tomorrow. CMV ileocolitis continue Valganciclovir GERD/Hiatal hernia continue PPI Delirium with age related dementia On iv steroid which can cause some delirium and recently postoperative. As per son she does have some memory issues worse in the morning. Plan/VTE VTE Prophylaxis Ordered?: Yes VS, I&O, 24H, Fishbone Vital Signs/I&O Vital Signs Date Time Temp Pulse Resp B/P (MAP) Pulse Ox O2 Delivery O2 Flow Rate FiO2 07/24/20 06:00 98.4 71 18 112/45 (67) 98 Room Air 07/23/20 19:50 2 I&O- Last 24 Hours up to 6 AM 07/24/20 06:00 Intake Total 6460 ml Output Total 1500 ml Balance 4960 ml Laboratory Data 24H LABS Laboratory Tests 2 07/23/20 11:56: Urine Color YELLOW, Urine Appearance TURBIDH, Urine pH 7.0, Urine Specific [place] 1.013, Urine Protein NEGATIVE, Urine Glucose (UA) NEGATIVE, Urine Ketones NEGATIVE, Urine Blood NEGATIVE, Urine Nitrite NEGATIVE, Urine Bilirubin NEGATIVE, Urine Urobilinogen 0.2, Urine Leukocyte Esterase NEGATIVE, Urine WBC (Auto) 1, Urine RBC (Auto) 1, Urine Hyaline Casts (Auto) 0, Urine Bacteria (Auto) 2+H, Urine Squamous Epithelial Cells 0, Urine Amorphous Sediment SMALLH, Urine Sperm (Auto) 07/24/20 06:20: Immature Granulocyte % (Auto) 0.6, Neutrophils (%) (Auto) 87.4H, Lymphocytes (%) (Auto) 11.1L, Monocytes (%) (Auto) 0.7, Eosinophils (%) (Auto) 0.0, Basophils (%) (Auto) 0.2, Neutrophils # (Auto) 10.5H, Lymphocytes # (Auto) 1.3L, Monocytes # (Auto) 0.1, Eosinophils # (Auto) 0.0, Basophils # (Auto) 0.0, Nucleated Red Blood Cells % (auto) 0.0, Anion Gap 6L, Glomerular Filtration Rate > 60.0, Calcium Level 7.9L CBC/BMP Laboratory Tests 07/24/20 06:20 CRISTIN ROMAN MD Jul 24, 2020 11:46
[2020-07-24 14:00] VITALS: BP 120/70
[2020-07-24] MEDS ORDERED: OLANZapine 5 MG TAB PO ONE (16:15)
[2020-07-24] MEDS: traMADol 50 MG TAB PO PRN (17:10)
[2020-07-24 20:00] VITALS: BP 136/71
[2020-07-24] MEDS: QUEtiapine FUMARATE 25 MG TAB PO SCH (21:05)
[2020-07-25] MEDS: traMADol 50 MG TAB PO PRN (02:53)
[2020-07-25] MEDS: ACETAMINOPHEN 500 MG TAB PO SCH ×4 (06:03→22:00)
[2020-07-25] MEDS: HYDROCORTISONE 100 MG/2 ML VIAL (J1720 PER 1) IV SCH (06:03)
[2020-07-25 07:48] LABS: BASO % 0.1 % (0.0-1.0); EOS % 0.1 % (0.0-3.0); HEMATOCRIT 28.8 % (36.0-47.0); HEMOGLOBIN 8.9 g/dl (12.0-15.5); LYMPH # 1.4 10^3/uL (1.5-5.0); LYMPH % 10.7 % (24.0-44.0); MEAN CORPUSCULAR HEMOGLOBIN 26.4 pg (27.0-33.0); MEAN CORPUSCULAR HGB CONC 30.9 g/dl (32.0-36.5); MEAN CORPUSCULAR VOLUME 85.5 fl (80.0-96.0); MONO # 0.1 10^3/uL (0.0-0.8); MONO % 0.9 % (0.0-5.0); NEUTROPHILS # 11.1 10^3/uL (1.5-8.5); NEUTROPHILS % 87.4 % (36.0-66.0); PLATELET COUNT, AUTOMATED 198 10^3/uL (150-450); RED BLOOD COUNT 3.37 10^6/uL (4.00-5.40); WHITE BLOOD COUNT 12.7 10^3/uL (4.0-10.0)
[2020-07-25 08:05] LABS: BLOOD UREA NITROGEN 8 MG/DL (7-18); CALCIUM LEVEL 7.8 MG/DL (8.8-10.2); CARBON DIOXIDE LEVEL 27 MEQ/L (21-32); CHLORIDE LEVEL 115 MEQ/L (98-107); CREATININE FOR GFR 0.64 MG/DL (0.55-1.30); GLOMERULAR FILTRATION RATE > 60.0 (>32); GLUCOSE, FASTING 84 MG/DL (70-100); POTASSIUM SERUM 3.4 MEQ/L (3.5-5.1); SODIUM LEVEL 147 MEQ/L (136-145)
[2020-07-25] MEDS: MIRALAX *UNIT DOSE* 17GM PACKET PO SCH (09:00)
[2020-07-25] MEDS: predniSONE 20 MG TAB PO SCH ×2 (09:00→10:09)
[2020-07-25] MEDS: SENOKOT S TAB PO SCH ×2 (09:00→21:00)
[2020-07-25] MEDS: PYRIDOSTIGMINE 60 MG TAB PO SCH ×5 (10:09→21:00)
[2020-07-25] MEDS: PANTOPRAZOLE 40MG TAB (PROTONIX) PO SCH (10:09)
[2020-07-25] MEDS: OLANZapine 2.5MG TABLET PO SCH ×2 (10:09→21:00)
[2020-07-25] MEDS: ValGANciclovir HYDROCHLORIDE 450MG TABLET PO SCH ×2 (10:10→17:04)
--- NOTE | 2020-07-25 12:45 | IPNPDOC ---
Subjective Date Seen The patient was seen on 07/25/20. Subjective Chief Complaint/HPI Was very agitated, combative trying to get out of bed, trying to hit nurses worse since yesterday afternoon . Needed olanzepine and seroquel. No fevers overnight. Still very confused this am. Son has been allowed to stay at beds [facility]. Objective Physical Examination General Exam: Positive: Alert, No Acute Distress, Other (intermittently combative. ) Eye Exam: Positive: PERRLA, Conjunctiva & lids normal, EOMI; Negative: Sclera icteric ENT Exam: Positive: Atraumatic, Mucous membr. moist/pink, Pharynx Normal Neck Exam: Positive: Supple; Negative: JVD, thyromegaly Chest Exam: Positive: Clear to auscultation, Normal air movement Heart Exam: Positive: Bradycardic, Regular Rhythm, Normal S1, Normal S2; Negative: Murmurs, Rubs Abdomen Exam: Positive: Normal bowel sounds, Soft; Negative: Tenderness, Hepatospenomegaly Extremity Exam: Positive: Edema, Other (right lateral thingh surgical incision with gregoria. 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 She complains of right thigh pain and stiffness, and muscle spasms on mild movement. She had 8/10 pain, sharp throbbing pain on moving her right leg. She was found to have right distal femoral fracture. Right distal femoral long comminuted fracture s/p OR on 07/23/20 Open reduction, internal fixation of right distal femur fracture using a Synthes distal femoral locking condylar plate with eight holes. Post op dvt prophylaxis and pain control as per ortho Acute Delirium on the background of dementia. On iv steroid which can cause some delirium and recently postoperative. As per son she does have memory issues worse in the morning. will put on olanzepine. Paroxysmal Afib now with sinus bradycardia will hold metoprolol Acute blood loss Anemia due to blood loss in fracture hematoma transfused 1 units. post op HH stable Myasthenia gravis continue steroid and pyridostigmine will hold cellcept for 1 week for wound healing prednisone. CMV ileocolitis continue Valganciclovir GERD/Hiatal hernia continue PPI Plan/VTE VTE Prophylaxis Ordered?: Yes VS, I&O, 24H, Fishbone Vital Signs/I&O Vital Signs Date Time Temp Pulse Resp B/P (MAP) Pulse Ox O2 Delivery O2 Flow Rate FiO2 07/24/20 20:00 98.1 72 20 136/71 (92) 96 Room Air 07/23/20 19:50 2 I&O- Last 24 Hours up to 6 AM 07/25/20 07:00 Intake Total 770 ml Output Total 800 ml Balance -30 ml CRISTIN ROMAN MD Jul 25, 2020 07:10
[2020-07-25 14:00] VITALS: BP 129/69
[2020-07-25] MEDS ORDERED: POTASSIUM CHLORIDE 10 MEQ SR TABLET PO ONE (14:00)
[2020-07-25 20:32] VITALS: BP 156/72
[2020-07-25] MEDS: QUEtiapine FUMARATE 25 MG TAB PO SCH (21:00)
[2020-07-26] MEDS: ACETAMINOPHEN 500 MG TAB PO SCH ×3 (06:00→22:22)
[2020-07-26] MEDS: ValGANciclovir HYDROCHLORIDE 450MG TABLET PO SCH ×2 (08:00→18:13)
[2020-07-26] MEDS: SENOKOT S TAB PO SCH ×2 (08:19→22:23)
[2020-07-26] MEDS: MIRALAX *UNIT DOSE* 17GM PACKET PO SCH (08:19)
[2020-07-26 08:27] VITALS: BP 134/61
[2020-07-26] MEDS: OLANZapine 2.5MG TABLET PO SCH ×2 (08:30→18:13)
[2020-07-26] MEDS: predniSONE 20 MG TAB PO SCH (08:30)
[2020-07-26] MEDS: PYRIDOSTIGMINE 60 MG TAB PO SCH ×4 (08:30→22:23)
[2020-07-26] MEDS: PANTOPRAZOLE 40MG TAB (PROTONIX) PO SCH (08:30)
[2020-07-26 09:05] LABS: BASO % 0.2 % (0.0-1.0); EOS % 0.3 % (0.0-3.0); HEMATOCRIT 29.6 % (36.0-47.0); HEMOGLOBIN 8.9 g/dl (12.0-15.5); LYMPH # 1.1 10^3/uL (1.5-5.0); LYMPH % 9.1 % (24.0-44.0); MEAN CORPUSCULAR HEMOGLOBIN 26.3 pg (27.0-33.0); MEAN CORPUSCULAR HGB CONC 30.1 g/dl (32.0-36.5); MEAN CORPUSCULAR VOLUME 87.6 fl (80.0-96.0); MONO # 0.1 10^3/uL (0.0-0.8); MONO % 0.8 % (0.0-5.0); NEUTROPHILS % 88.7 % (36.0-66.0); PLATELET COUNT, AUTOMATED 240 10^3/uL (150-450); RED BLOOD COUNT 3.38 10^6/uL (4.00-5.40); WHITE BLOOD COUNT 12.4 10^3/uL (4.0-10.0)
[2020-07-26 09:30] LABS: BLOOD UREA NITROGEN 12 MG/DL (7-18); CALCIUM LEVEL 7.9 MG/DL (8.8-10.2); CARBON DIOXIDE LEVEL 26 MEQ/L (21-32); CHLORIDE LEVEL 116 MEQ/L (98-107); CREATININE FOR GFR 0.61 MG/DL (0.55-1.30); GLOMERULAR FILTRATION RATE > 60.0 (>32); GLUCOSE, FASTING 70 MG/DL (70-100); SODIUM LEVEL 150 MEQ/L (136-145)
[2020-07-26] MEDS ORDERED: dexameTHASONE 4 MG/ML 1ML VIAL (J1100 PER 1MG) IV ONE (10:30)
--- NOTE | 2020-07-26 10:32 | IPNPDOC ---
Subjective Date Seen The patient was seen on 07/26/20. Subjective Chief Complaint/HPI Deeply asleep this morning. On trying to wake her up her she is pushing away my hand and turning her face to the other side and mumbling some thing. No fever or chills. Refusing breakfast she is too somnolent to be given her morning medications and her breakfast Objective Physical Examination General Exam: Positive: Other (somnolent) Eye Exam: Positive: Conjunctiva & lids normal; Negative: Sclera icteric Neck Exam: Positive: Supple; Negative: JVD, thyromegaly Chest Exam: Positive: Clear to auscultation, Normal air movement Heart Exam: Positive: Rate Normal, Regular Rhythm, Normal S1, Normal S2; Negative: Murmurs, Rubs Abdomen Exam: Positive: Normal bowel sounds, Soft; Negative: Tenderness, Hepatospenomegaly Extremity Exam: Positive: Edema, Other (right lateral thigh surgical incision with gregoria. 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 She complains of right thigh pain and stiffness, and muscle spasms on mild movement. She had 8/10 pain, sharp throbbing pain on moving her right leg. She was found to have right distal femoral fracture. Hypernatremia and hypokalemia due to poor oral intake patient has been agitated for 2 days with minimal oral intake and now she is sleeping deeply and refusing breakfast. will start on dex and K IV. Acute Delirium on the background of dementia. On iv steroid which can cause some delirium and recently postoperative. As per son she does have memory issues worse in the morning. Sleeping since last night after 2 days. Had received olanzapine and seroquel yesterday morning and the night before Right distal femoral long comminuted fracture s/p OR on 07/23/20 Open reduction, internal fixation of right distal femur fracture using a Synthes distal femoral locking condylar plate with eight holes. Post op dvt prophylaxis and pain control as per ortho Paroxysmal Afib now with sinus bradycardia will hold metoprolol Acute blood loss Anemia due to blood loss in fracture hematoma transfused 1 units. post op HH stable Myasthenia gravis continue steroid and pyridostigmine will hold cellcept for 1 week for wound healing prednisone. CMV ileocolitis continue Valganciclovir GERD/Hiatal hernia continue PPI Plan/VTE VTE Prophylaxis Ordered?: Yes VS, I&O, 24H, Fishbone Vital Signs/I&O Vital Signs Date Time Temp Pulse Resp B/P (MAP) Pulse Ox O2 Delivery O2 Flow Rate FiO2 07/26/20 08:27 99.8 81 18 134/61 (85) 99 Room Air 07/23/20 19:50 2 I&O- Last 24 Hours up to 6 AM 07/26/20 05:59 Intake Total 0 ml Output Total 0 ml Balance 0 ml Laboratory Data 24H LABS Laboratory Tests 2 07/26/20 08:36: Immature Granulocyte % (Auto) 0.9, Neutrophils (%) (Auto) 88.7H, Lymphocytes (%) (Auto) 9.1L, Monocytes (%) (Auto) 0.8, Eosinophils (%) (Auto) 0.3, Basophils (%) (Auto) 0.2, Neutrophils # (Auto) 11.0H, Lymphocytes # (Auto) 1.1L, Monocytes # (Auto) 0.1, Eosinophils # (Auto) 0.0, Basophils # (Auto) 0.0, Nucleated Red Blood Cells % (auto) 0.0, Anion Gap 8, Glomerular Filtration Rate > 60.0, Calcium Level 7.9L CBC/BMP Laboratory Tests 07/26/20 08:36 CRISTIN ROMAN MD Jul 26, 2020 10:32
[2020-07-26] MEDS: POTASSIUM CHLORIDE INJ 40 MEQ in D5W 1,000 ML IV SCH (11:32)
[2020-07-26 14:00] VITALS: BP 126/61
[2020-07-26 18:20] LABS: CLOSTRIDIUM DIFFICILE PCR NEGATIVE (NEGATIVE)
[2020-07-26 22:00] VITALS: BP 131/65
[2020-07-26] MEDS: traMADol 50 MG TAB PO PRN (22:23)
[2020-07-27] MEDS: POTASSIUM CHLORIDE INJ 40 MEQ in D5W 1,000 ML IV SCH (00:45)
[2020-07-27 06:00] VITALS: BP 152/65
[2020-07-27] MEDS: ACETAMINOPHEN 500 MG TAB PO SCH ×5 (06:00→22:01)
[2020-07-27 06:52] LABS: BASO % 0.2 % (0.0-1.0); EOS # 0.1 10^3/uL (0.0-0.5); EOS % 0.5 % (0.0-3.0); HEMATOCRIT 29.1 % (36.0-47.0); HEMOGLOBIN 8.7 g/dl (12.0-15.5); LYMPH # 1.7 10^3/uL (1.5-5.0); LYMPH % 16.4 % (24.0-44.0); MEAN CORPUSCULAR HGB CONC 29.9 g/dl (32.0-36.5); MEAN CORPUSCULAR VOLUME 87.1 fl (80.0-96.0); MONO # 0.1 10^3/uL (0.0-0.8); MONO % 1.1 % (0.0-5.0); NEUTROPHILS # 8.4 10^3/uL (1.5-8.5); NEUTROPHILS % 81.3 % (36.0-66.0); PLATELET COUNT, AUTOMATED 251 10^3/uL (150-450); RED BLOOD COUNT 3.34 10^6/uL (4.00-5.40); WHITE BLOOD COUNT 10.3 10^3/uL (4.0-10.0)
[2020-07-27 07:12] LABS: BLOOD UREA NITROGEN 7 MG/DL (7-18); CALCIUM LEVEL 7.8 MG/DL (8.8-10.2); CARBON DIOXIDE LEVEL 27 MEQ/L (21-32); CHLORIDE LEVEL 114 MEQ/L (98-107); CREATININE FOR GFR 0.62 MG/DL (0.55-1.30); GLOMERULAR FILTRATION RATE > 60.0 (>32); GLUCOSE, FASTING 102 MG/DL (70-100); POTASSIUM SERUM 3.1 MEQ/L (3.5-5.1); SODIUM LEVEL 145 MEQ/L (136-145)
[2020-07-27] MEDS: SENOKOT S TAB PO SCH ×3 (09:00→22:02)
[2020-07-27] MEDS: MIRALAX *UNIT DOSE* 17GM PACKET PO SCH (09:00)
[2020-07-27] MEDS: ValGANciclovir HYDROCHLORIDE 450MG TABLET PO SCH ×2 (09:57→17:23)
[2020-07-27] MEDS: METOPROLOL TART 25 MG TABLET PO SCH ×3 (09:58→22:02)
[2020-07-27] MEDS: PANTOPRAZOLE 40MG TAB (PROTONIX) PO SCH (09:58)
[2020-07-27] MEDS: predniSONE 20 MG TAB PO SCH (09:58)
[2020-07-27] MEDS: PYRIDOSTIGMINE 60 MG TAB PO SCH ×5 (09:58→22:01)
--- NOTE | 2020-07-27 10:09 | IPNPDOC ---
Subjective Date Seen The patient was seen on 07/27/20. Subjective Chief Complaint/HPI Has been calm and cooperative overnight, better than before. Took her night time meds. Cooperative and more lucid this morning. Still says something is wrong with her leg and does not remember having surgery. Barrier to understanding is that she is very hard of hearing also. Needs to be frequently reoriented. Objective Physical Examination General Exam: Positive: Alert, Cooperative, No Acute Distress, Other (pleasantly confused today) Eye Exam: Positive: Conjunctiva & lids normal; Negative: Sclera icteric Neck Exam: Positive: Supple; Negative: JVD, thyromegaly Chest Exam: Positive: Clear to auscultation, Normal air movement Heart Exam: Positive: Rate Normal, Regular Rhythm, Normal S1, Normal S2; Negative: Murmurs, Rubs Abdomen Exam: Positive: Normal bowel sounds, Soft; Negative: Tenderness, Hepatospenomegaly Extremity Exam: Positive: Edema, Other (right lateral thigh surgical incision with gregoria. 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 She complains of right thigh pain and stiffness, and muscle spasms on mild movement. She had 8/10 pain, sharp throbbing pain on moving her right leg. She was found to have right distal femoral fracture. Hypernatremia and hypokalemia patient had been agitated for 2 days with minimal oral intake Hypernatremia better today will sotp IVF po potassium. Acute Delirium on the background of dementia. On iv steroid which can cause some delirium and recently postoperative. Sleeping since last night after 2 days. Had received olanzapine and seroquel yesterday morning and the night before Now will continue only olanzapine at night. Right distal femoral long comminuted fracture s/p OR on 07/23/20 Open reduction, internal fixation of right distal femur fracture using a Synthes distal femoral locking condylar plate with eight holes. Post op dvt prophylaxis and pain control as per ortho Paroxysmal Afib now with sinus metoprolol Acute blood loss Anemia due to blood loss in fracture hematoma transfused 1 units. post op HH stable Myasthenia gravis continue steroid and pyridostigmine will hold cellcept for 1 week for wound healing prednisone continued CMV ileocolitis continue Valganciclovir GERD/Hiatal hernia continue PPI Plan/VTE VTE Prophylaxis Ordered?: Yes VS, I&O, 24H, Fishbone Vital Signs/I&O Vital Signs Date Time Temp Pulse Resp B/P (MAP) Pulse Ox O2 Delivery O2 Flow Rate FiO2 07/27/20 06:00 99.3 82 20 152/65 (94) 92 Room Air 07/23/20 19:50 2 I&O- Last 24 Hours up to 6 AM 07/27/20 07:00 Intake Total 940 ml Output Total 200 ml Balance 740 ml Laboratory Data 24H LABS Laboratory Tests 2 07/26/20 08:36: Immature Granulocyte % (Auto) 0.9, Neutrophils (%) (Auto) 88.7H, Lymphocytes (%) (Auto) 9.1L, Monocytes (%) (Auto) 0.8, Eosinophils (%) (Auto) 0.3, Basophils (%) (Auto) 0.2, Neutrophils # (Auto) 11.0H, Lymphocytes # (Auto) 1.1L, Monocytes # (Auto) 0.1, Eosinophils # (Auto) 0.0, Basophils # (Auto) 0.0, Nucleated Red Blood Cells % (auto) 0.0, Anion Gap 8, Glomerular Filtration Rate > 60.0, Calcium Level 7.9L 07/26/20 17:30: Clostridium difficile [id number] PRESUMPTIVE NEGATIVE, Clostridium difficile Toxin (PCR) NEGATIVE CBC/BMP Laboratory Tests 07/26/20 08:36 CRISTIN ROMAN MD Jul 27, 2020 06:34
[2020-07-27] MEDS ORDERED: POTASSIUM CHLORIDE 10 MEQ SR TABLET PO ONE (10:15)
[2020-07-27 14:00] VITALS: BP 102/53
[2020-07-27] MEDS: OLANZapine 2.5MG TABLET PO SCH (17:23)
[2020-07-27] MEDS: traMADol 50 MG TAB PO PRN (17:30)
[2020-07-27 22:00] VITALS: BP 156/69
[2020-07-28 06:00] VITALS: BP 157/70
[2020-07-28] MEDS: ACETAMINOPHEN 500 MG TAB PO SCH (06:00)
[2020-07-28] MEDS ORDERED: ACET325C5 PO (07:33)
[2020-07-28] MEDS ORDERED: TRAM50TA2 PO (07:33)
[2020-07-28] MEDS ORDERED: XARE10TA PO (07:35)
[2020-07-28 08:56] LABS: BASO % 0.2 % (0.0-1.0); EOS # 0.1 10^3/uL (0.0-0.5); EOS % 0.7 % (0.0-3.0); HEMATOCRIT 29.1 % (36.0-47.0); HEMOGLOBIN 8.9 g/dl (12.0-15.5); LYMPH % 18.2 % (24.0-44.0); MEAN CORPUSCULAR HEMOGLOBIN 26.7 pg (27.0-33.0); MEAN CORPUSCULAR HGB CONC 30.6 g/dl (32.0-36.5); MEAN CORPUSCULAR VOLUME 87.4 fl (80.0-96.0); MONO # 0.2 10^3/uL (0.0-0.8); MONO % 1.9 % (0.0-5.0); NEUTROPHILS # 8.4 10^3/uL (1.5-8.5); NEUTROPHILS % 78.3 % (36.0-66.0); PLATELET COUNT, AUTOMATED 309 10^3/uL (150-450); RED BLOOD COUNT 3.33 10^6/uL (4.00-5.40); WHITE BLOOD COUNT 10.8 10^3/uL (4.0-10.0)
[2020-07-28] MEDS: MIRALAX *UNIT DOSE* 17GM PACKET PO SCH (09:00)
[2020-07-28] MEDS ORDERED: QUEtiapine FUMARATE 12.5 MG HALF-TAB PO SCH (09:00)
[2020-07-28] MEDS: SENOKOT S TAB PO SCH (09:00)
[2020-07-28] MEDS: ValGANciclovir HYDROCHLORIDE 450MG TABLET PO SCH (09:24)
[2020-07-28] MEDS: PANTOPRAZOLE 40MG TAB (PROTONIX) PO SCH (09:25)
[2020-07-28] MEDS: PYRIDOSTIGMINE 60 MG TAB PO SCH (09:25)
[2020-07-28] MEDS: predniSONE 20 MG TAB PO SCH (09:25)
[2020-07-28 09:26] LABS: BLOOD UREA NITROGEN 8 MG/DL (7-18); CARBON DIOXIDE LEVEL 25 MEQ/L (21-32); CHLORIDE LEVEL 115 MEQ/L (98-107); CREATININE FOR GFR 0.56 MG/DL (0.55-1.30); GLOMERULAR FILTRATION RATE > 60.0 (>32); GLUCOSE, FASTING 73 MG/DL (70-100); POTASSIUM SERUM 3.6 MEQ/L (3.5-5.1); SODIUM LEVEL 146 MEQ/L (136-145)
[2020-07-28 09:29] VITALS: BP 130/81
[2020-07-28] MEDS: METOPROLOL TART 25 MG TABLET PO SCH (09:29)
[2020-07-28] MEDS ORDERED: CELL500T PO (10:42)
--- NOTE | 2020-07-29 03:00 | DS.PDOC ---
Discharge Summary General Date of Admission Jul 23, 2020 at 11:13 Date of Discharge 07/28/20 Discharge Summary PROCEDURES PERFORMED DURING STAY: Open reduction, internal fixation of right distal femur fracture using a Synthes distal femoral locking condylar plate with eight holes on 07/23/20 DISCHARGE DIAGNOSES: Right distal femoral fracture s/p ORIF Acute delirium on the background of Dementia Hypernatremia and hypokalemia Acute Blood loss anemia SECONDARY DIAGNOSIS: Dementia Paroxysmal Afib Myasthenia Gravis CMV ileocolitis TIA GERD Hiatal Hernia COMPLICATIONS/CHIEF COMPLAINT: Femur Fracture, Right. 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 She was found to have right distal femoral fracture. Right distal femoral long comminuted fracture s/p OR on 07/23/20 Open reduction, internal fixation of right distal femur fracture using a Synthes distal femoral locking condylar plate with eight holes. Post op dvt prophylaxis and pain control as per ortho Hypernatremia and hypokalemia patient had been agitated for 2 days with minimal oral intake better Acute Delirium on the background of dementia. Was On iv steroid which can cause some delirium and recently postoperative. will continue seroquel. Paroxysmal Afib now with sinus metoprolol Acute blood loss Anemia due to blood loss in fracture hematoma transfused 1 units. post op HH stable Myasthenia gravis continue steroid and pyridostigmine will hold Cellcept for 1 week for wound healing prednisone continued CMV ileocolitis continue Valganciclovir till 08/01/[address] Lopez. GERD/Hiatal hernia continue PPI DISCHARGE MEDICATIONS: Please see below. ALLERGIES: Please see below. PHYSICAL EXAMINATION ON DISCHARGE: VITAL SIGNS: Please see below. General Exam: Positive: Alert, Cooperative, No Acute Distress, Other (pleasantly confused today) Eye Exam: Positive: Conjunctiva & lids normal; Negative: Sclera icteric Neck Exam: Positive: Supple; Negative: JVD, thyromegaly Chest Exam: Positive: Clear to auscultation, Normal air movement Heart Exam: Positive: Rate Normal, Regular Rhythm, Normal S1, Normal S2; Negative: Murmurs, Rubs Abdomen Exam: Positive: Normal bowel sounds, Soft; Negative: Tenderness, Hepatosplenomegaly Extremity Exam: Positive: Edema, Other (right lateral thigh surgical incision with gregoria. ) Skin Exam: Positive: Nl turgor and temperature; Negative: Breakdown, Lesion Psych Exam: Positive: Other (dementia) LABORATORY DATA: Please see below. ACTIVITY: [As tolerated]. DIET: As tolerated DISPOSITION: [facility]. DISCHARGE INSTRUCTIONS: Follow up with Orthopedics in 2 weeks DISCHARGE CONDITION: [Stable]. TIME SPENT ON DISCHARGE: 35 minutes. Vital Signs/I&Os Vital Signs Date Time Temp Pulse Resp B/P (MAP) Pulse Ox O2 Delivery O2 Flow Rate FiO2 07/28/20 09:29 83 130/81 07/28/20 06:00 98.8 20 93 Room Air 07/23/20 19:50 2 I&O- Last 24 Hours up to 6 AM0 07/29/20 07:00 Intake Total 60 ml Balance 60 ml Laboratory Data Labs 24H Laboratory Tests 2 07/28/20 08:14: Immature Granulocyte % (Auto) 0.7, Neutrophils (%) (Auto) 78.3H, Lymphocytes (%) (Auto) 18.2L, Monocytes (%) (Auto) 1.9, Eosinophils (%) (Auto) 0.7, Basophils (%) (Auto) 0.2, Neutrophils # (Auto) 8.4, Lymphocytes # (Auto) 2.0, Monocytes # (Auto) 0.2, Eosinophils # (Auto) 0.1, Basophils # (Auto) 0.0, Nucleated Red Blood Cells % (auto) 0.0, Anion Gap 6L, Glomerular Filtration Rate > 60.0, Calcium Level 8.0L CBC/BMP Laboratory Tests 07/28/20 08:14 Discharge Medications Scheduled Calcium Carbonate (Tums) 200 Mg Tab.chew, 500 MG PO BID, (Reported) LUNCH AND BEDTIME Ergocalciferol (Vitamin D2) (Vitamin D2) 50,000 Units Cap, 50,000 UNITS PO 1XWK, (Reported) TUESDAY Esomeprazole Magnesium (Esomeprazole Magnesium Dr) 40 Mg Capsule.dr, 40 MG PO DAILY, (Reported) Metoprolol Tartrate (Metoprolol Tartrate) 25 Mg Tablet, 25 MG PO BID, (Reported) Mycophenolate Mofetil (Cellcept) 500 Mg Tablet, 1,000 MG PO BID restart on 08/01/20 Nystatin (Nystatin) 15 Gm Cream..g., 1 DOSE TOP TID, (Reported) APPLY TO PERIANAL AREA Prednisone (Prednisone) 20 Mg Tablet, 20 MG PO DAILY, (Reported) Pyridostigmine [place] (Mestinon) 60 Mg Tablet, 60 MG PO QID, (Reported) Quetiapine Fumarate (Quetiapine Fumarate) 25 Mg Tablet, 25 MG PO QHS, (Reported) Rivaroxaban (Xarelto) 10 Mg Tablet, 10 MG PO DAILY Valganciclovir HCl (Valganciclovir HCl) 450 Mg Tablet, 900 MG PO BID, (Reported) FILLED 07/11 FOR 21 DAYS Scheduled PRN Acetaminophen (Tylenol) 325 Mg Capsule, 1,000 MG PO Q8H PRN for SCHEDULED Tramadol HCl (Tramadol HCl) 50 Mg Tablet, 1-2 TAB PO Q4H PRN for PAIN Allergies Coded Allergies: Contrast Media (Verified Allergy, Severe, cant breathe, 07/03/20) Penicillins (Verified Allergy, Severe, anaphlaxis, 07/03/20) cephalexin (Verified Allergy, Severe, anaphylaxis, 07/03/20) Sulfa (Sulfonamide Antibiotics) (Verified Allergy, Intermediate, rash, hives, 07/03/20) levofloxacin (Verified Allergy, Intermediate, hives, 07/03/20) Antihistamines - Alkylamine (Verified Allergy, Mild, rash, 07/03/20) nitrofurantoin (Verified Adverse Reaction, Intermediate, parasthesis, 07/03/20) clarithromycin (Verified Adverse Reaction, Mild, dyspepsia, 07/03/20) doxycycline (Verified Adverse Reaction, Mild, N/V, 07/03/20) famotidine (Verified Adverse Reaction, Mild, Vomiting, 07/03/20) meloxicam (Verified Adverse Reaction, Mild, N/V, 07/03/20) CRISTIN ROMAN MD Jul 29, 2020 03:00
== END 2020-07-28 11:55 | DRG 481 ==
LOC: M ED 06:33 → EDBD 06:33 → M ED INP 11:13 → ENRESERV 12:48 → M MS5PR 13:16
PROVIDERS: ADMIT Internal Medicine Nephrology; ATTEND Internal Medicine Nephrology
PROC: 30233N1 Transfusion of Nonautologous Red Blood Cells into Peripheral Vein, Percutaneous Approach (ICD-10-PCS; 2020-07-23)
PROC: 0QSB04Z Reposition Right Lower Femur with Internal Fixation Device, Open Approach (ICD-10-PCS; principal; 2020-07-23 15:30)
DX: S72.401A Unspecified fracture of lower end of right femur, initial encounter for closed fracture (principal); B25.8 Other cytomegaloviral diseases; D62 Acute posthemorrhagic anemia; E87.0 Hyperosmolality and hypernatremia; F03.91 Unspecified dementia, unspecified severity, with behavioral disturbance; E87.1 Hypo-osmolality and hyponatremia; G70.00 Myasthenia gravis without (acute) exacerbation; I48.0 Paroxysmal atrial fibrillation; Z79.82 Long term (current) use of aspirin; Z79.899 Other long term (current) drug therapy; Z88.0 Allergy status to penicillin; Z91.041 Radiographic dye allergy status; Z88.2 Allergy status to sulfonamides; Z88.8 Allergy status to other drugs, medicaments and biological substances; K21.9 Gastro-esophageal reflux disease without esophagitis; E78.5 Hyperlipidemia, unspecified; Z96.643 Presence of artificial hip joint, bilateral; K44.9 Diaphragmatic hernia without obstruction or gangrene; Z86.73 Personal history of transient ischemic attack (TIA), and cerebral infarction without residual deficits; E87.6 Hypokalemia; W18.30XA Fall on same level, unspecified, initial encounter; Y92.009 Unspecified place in unspecified non-institutional (private) residence as the place of occurrence of the external cause

== ENCOUNTER → 2020-07-31 | Outpatient (REF) ==
[~2020-07-31] MED LIST changes: +ACET325C5 PO; +ESOM40CA35 PO; +NYST10CR TOP; +VALG1TAB PO
== END ==
LOC: SKLAB3 10:59
DX: Z20.828 Contact with and (suspected) exposure to other viral communicable diseases (principal)

== ENCOUNTER → 2020-08-04 | Outpatient (REF) | payer MEDICAID, MEDICARE ==
[2020-08-04 13:34] LABS: HEMATOCRIT 34.9 % (36.0-47.0); HEMOGLOBIN 10.4 g/dl (12.0-15.5); MEAN CORPUSCULAR HEMOGLOBIN 27.4 pg (27.0-33.0); MEAN CORPUSCULAR HGB CONC 29.8 g/dl (32.0-36.5); MEAN CORPUSCULAR VOLUME 91.8 fl (80.0-96.0); PLATELET COUNT, AUTOMATED 743 10^3/uL (150-450)
[2020-08-04 14:03] LABS: BLOOD UREA NITROGEN 16 MG/DL (7-18); CALCIUM LEVEL 8.3 MG/DL (8.8-10.2); CARBON DIOXIDE LEVEL 23 MEQ/L (21-32); CHLORIDE LEVEL 113 MEQ/L (98-107); CREATININE FOR GFR 0.63 MG/DL (0.55-1.30); GLOMERULAR FILTRATION RATE > 60.0 (>32); GLUCOSE, FASTING 129 MG/DL (70-100); POTASSIUM SERUM 4.3 MEQ/L (3.5-5.1); SODIUM LEVEL 143 MEQ/L (136-145)
[2020-08-04 14:14] LABS: TOTAL 25(OH) VITAMIN D 87.6 NG/ML (30.0-100.0)
== END ==
LOC: SKLAB3 07:00
DX: M81.0 Age-related osteoporosis without current pathological fracture (principal); E87.8 Other disorders of electrolyte and fluid balance, not elsewhere classified

== ENCOUNTER → 2020-08-09 | Outpatient (REF) | payer MEDICAID, MEDICARE ==
[2020-08-09 09:21] LABS: HEMATOCRIT 36.5 % (36.0-47.0); HEMOGLOBIN 10.8 g/dl (12.0-15.5); MEAN CORPUSCULAR HEMOGLOBIN 27.9 pg (27.0-33.0); MEAN CORPUSCULAR HGB CONC 29.6 g/dl (32.0-36.5); MEAN CORPUSCULAR VOLUME 94.3 fl (80.0-96.0); PLATELET COUNT, AUTOMATED 774 10^3/uL (150-450); RED BLOOD COUNT 3.87 10^6/uL (4.00-5.40); WHITE BLOOD COUNT 12.6 10^3/uL (4.0-10.0)
[2020-08-09 11:38] LABS: BASO # 0.1 10^3/uL (0.0-0.2); BASO % 0.8 % (0.0-1.0); EOS # 0.1 10^3/uL (0.0-0.5); EOS % 0.4 % (0.0-3.0); LYMPH # 3.2 10^3/uL (1.5-5.0); LYMPH % 26.2 % (24.0-44.0); MONO # 0.7 10^3/uL (0.0-0.8); MONO % 5.4 % (0.0-5.0); NEUTROPHILS # 7.9 10^3/uL (1.5-8.5); NEUTROPHILS % 65.3 % (36.0-66.0)
[2020-08-09 15:56] LABS: APPEARANCE, URINE HAZY (CLEAR); BACTERIA, URINE AUTO 1+ (NEGATIVE); BILIRUBIN, URINE AUTO NEGATIVE (NEGATIVE); BLOOD, URINE BLOOD 1+ (NEGATIVE); COLOR, URINE YELLOW (YELLOW); GLUCOSE, URINE (UA) AUTO NEGATIVE (NEGATIVE); KETONE, URINE AUTO NEGATIVE (NEGATIVE); LEUKOCYTE ESTERASE, URINE AUTO NEGATIVE (NEGATIVE); NITRITE, URINE AUTO POSITIVE (NEGATIVE); PROTEIN, URINE AUTO NEGATIVE (NEGATIVE); RBC, URINE AUTO 3 /HPF (0-3); SPECIFIC GRAVITY URINE AUTO 1.008 (1.002-1.035); SQUAMOUS EPITHELIAL CELL UR AU 0 /HPF (0-6); UROBILINOGEN, URINE AUTO 0.2 mg/dL (0.0-2.0); WBC, URINE AUTO 1 /HPF (0-3)
== END ==
LOC: SKLAB3 15:38
PROVIDERS: ATTEND Nurse Practitioner Adult Health
DX: R30.9 Painful micturition, unspecified (principal)

== ENCOUNTER → 2020-08-11 | Outpatient (REF) ==
[2020-08-11 10:12] LABS: BLOOD UREA NITROGEN 19 MG/DL (7-18); CALCIUM LEVEL 8.3 MG/DL (8.8-10.2); CARBON DIOXIDE LEVEL 26 MEQ/L (21-32); CHLORIDE LEVEL 111 MEQ/L (98-107); CREATININE FOR GFR 0.77 MG/DL (0.55-1.30); GLOMERULAR FILTRATION RATE > 60.0 (>32); GLUCOSE, FASTING 124 MG/DL (70-100); POTASSIUM SERUM 4.2 MEQ/L (3.5-5.1); SODIUM LEVEL 141 MEQ/L (136-145)
== END ==
LOC: SKLAB3 07:00
DX: I10 Essential (primary) hypertension (principal); D64.9 Anemia, unspecified

== ENCOUNTER → 2020-08-13 | Outpatient (REF) | LOC: SKLAB3 08:00 | DX: Z20.828 Contact with and (suspected) exposure to other viral communicable diseases (principal) ==

== ENCOUNTER → 2020-08-18 | Outpatient (REF) | payer MEDICAID, MEDICARE ==
[2020-08-18 11:46] LABS: HEMATOCRIT 38.9 % (36.0-47.0); HEMOGLOBIN 11.5 g/dl (12.0-15.5); MEAN CORPUSCULAR HEMOGLOBIN 27.9 pg (27.0-33.0); MEAN CORPUSCULAR HGB CONC 29.6 g/dl (32.0-36.5); MEAN CORPUSCULAR VOLUME 94.4 fl (80.0-96.0); PLATELET COUNT, AUTOMATED 400 10^3/uL (150-450); RED BLOOD COUNT 4.12 10^6/uL (4.00-5.40); WHITE BLOOD COUNT 15.1 10^3/uL (4.0-10.0)
[2020-08-18 12:24] LABS: BLOOD UREA NITROGEN 16 MG/DL (7-18); CALCIUM LEVEL 8.6 MG/DL (8.8-10.2); CARBON DIOXIDE LEVEL 24 MEQ/L (21-32); CHLORIDE LEVEL 109 MEQ/L (98-107); CREATININE FOR GFR 0.69 MG/DL (0.55-1.30); GLOMERULAR FILTRATION RATE > 60.0 (>32); GLUCOSE, FASTING 96 MG/DL (70-100); POTASSIUM SERUM 4.5 MEQ/L (3.5-5.1); SODIUM LEVEL 138 MEQ/L (136-145)
== END ==
LOC: SKLAB3 07:00
PROVIDERS: ATTEND Internal Medicine
DX: D64.9 Anemia, unspecified (principal)

== ENCOUNTER → 2020-08-20 | Outpatient (REF) | LOC: SKLAB3 08:00 | DX: Z20.828 Contact with and (suspected) exposure to other viral communicable diseases (principal) ==

== ENCOUNTER → 2020-08-25 | Outpatient (REF) ==
[2020-08-25 08:42] LABS: HEMATOCRIT 36.2 % (36.0-47.0); HEMOGLOBIN 10.9 g/dl (12.0-15.5); MEAN CORPUSCULAR HGB CONC 30.1 g/dl (32.0-36.5); MEAN CORPUSCULAR VOLUME 96.3 fl (80.0-96.0); PLATELET COUNT, AUTOMATED 299 10^3/uL (150-450); RED BLOOD COUNT 3.76 10^6/uL (4.00-5.40); WHITE BLOOD COUNT 12.9 10^3/uL (4.0-10.0)
[2020-08-25 09:09] LABS: BLOOD UREA NITROGEN 12 MG/DL (7-18); CARBON DIOXIDE LEVEL 29 MEQ/L (21-32); CHLORIDE LEVEL 112 MEQ/L (98-107); GLOMERULAR FILTRATION RATE > 60.0 (>32); GLUCOSE, FASTING 82 MG/DL (70-100); POTASSIUM SERUM 3.8 MEQ/L (3.5-5.1); SODIUM LEVEL 143 MEQ/L (136-145)
== END ==
LOC: SKLAB3 07:00
DX: D64.9 Anemia, unspecified (principal); I10 Essential (primary) hypertension

== ENCOUNTER → 2020-08-27 | Outpatient (REF) | LOC: SKLAB3 06:51 | DX: Z20.828 Contact with and (suspected) exposure to other viral communicable diseases (principal) ==

== ENCOUNTER → 2020-09-03 | Outpatient (REF) | LOC: SKLAB3 10:03 | DX: Z20.828 Contact with and (suspected) exposure to other viral communicable diseases (principal) ==

== ENCOUNTER → 2020-09-10 | Outpatient (REF) | LOC: SKLAB3 07:00 | DX: Z20.828 Contact with and (suspected) exposure to other viral communicable diseases (principal) ==

== ENCOUNTER → 2020-09-17 | Outpatient (REF) | LOC: SKLAB3 06:58 | DX: Z20.828 Contact with and (suspected) exposure to other viral communicable diseases (principal) ==

== ENCOUNTER → 2020-09-24 | Outpatient (REF) | LOC: SKLAB3 09:34 | PROVIDERS: ATTEND Internal Medicine | DX: Z11.52 Encounter for screening for COVID-19 (principal) ==

== ENCOUNTER → 2020-10-01 | Outpatient (REF) | LOC: SKLAB3 07:00 | PROVIDERS: ATTEND Internal Medicine | DX: Z20.822 Contact with and (suspected) exposure to COVID-19 (principal) ==

== ENCOUNTER → 2020-11-05 | Outpatient (REF) | payer MEDICARE, MEDICAID ==
[~2020-11-05] MED LIST changes: +MYCO500T PO; +PROC1CRE5 PR; -QUET1TAB7 PO; +QUET25TA3 PO; +[UNRECOGNIZED DRUG - REMARK]
[2020-11-05 15:32] LABS: BASO % 0.3 % (0.0-1.0); EOS % 0.2 % (0.0-3.0); HEMOGLOBIN 7.6 g/dl (12.0-15.5); LYMPH # 0.9 10^3/uL (1.5-5.0); LYMPH % 8.4 % (24.0-44.0); MEAN CORPUSCULAR HEMOGLOBIN 25.2 pg (27.0-33.0); MEAN CORPUSCULAR HGB CONC 28.1 g/dl (32.0-36.5); MEAN CORPUSCULAR VOLUME 89.7 fl (80.0-96.0); MONO # 0.4 10^3/uL (0.0-0.8); MONO % 3.7 % (2.0-8.0); NEUTROPHILS # 9.3 10^3/uL (1.5-8.5); NEUTROPHILS % 85.6 % (36.0-66.0); PLATELET COUNT, AUTOMATED 544 10^3/uL (150-450); RED BLOOD COUNT 3.01 10^6/uL (4.00-5.40); WHITE BLOOD COUNT 10.9 10^3/uL (4.0-10.0)
[2020-11-05 15:56] LABS: HEMOGLOBIN A1c 5.9 %
[2020-11-05 15:58] LABS: ERYTHROCYTE SEDIMENTATION RATE 64 mm/hr (0-30)
[2020-11-05 15:59] LABS: ALBUMIN 3.2 GM/DL (3.2-5.2); ALT/SGPT 19 U/L (12-78); BILIRUBIN,TOTAL 0.1 MG/DL (0.2-1.0); BLOOD UREA NITROGEN 20 MG/DL (7-18); C REACTIVE PROTEIN QUANTITATIV 0.54 MG/DL (0.00-0.30); CALCIUM LEVEL 8.1 MG/DL (8.8-10.2); CARBON DIOXIDE LEVEL 33 MEQ/L (21-32); CHLORIDE LEVEL 106 MEQ/L (98-107); FERRITIN 12 NG/ML (8-252); GLOMERULAR FILTRATION RATE > 60.0 (>32); GLUCOSE, FASTING 123 MG/DL (70-100); NT-PRO BNP 657 PG/ML (<450); POTASSIUM SERUM 3.9 MEQ/L (3.5-5.1); SODIUM LEVEL 143 MEQ/L (136-145)
[2020-11-05 16:06] LABS: PTH INTACT 107.3 PG/ML (18.5-88.0); TOTAL 25(OH) VITAMIN D 65.7 NG/ML (30.0-100.0)
[2020-11-07 06:11] LABS: CYTOMEGALOVIRUS IgG ANTIBODY >10.00 U/mL (0.00-0.59); CYTOMEGALOVIRUS IgM ANTIBODY <30.0 AU/mL (0.0-29.9)
== END ==
LOC: M SFHCPLAZ 13:49
PROVIDERS: ATTEND Family Medicine
DX: I50.32 Chronic diastolic (congestive) heart failure (principal); R73.01 Impaired fasting glucose; D50.9 Iron deficiency anemia, unspecified; E55.9 Vitamin D deficiency, unspecified; B25.8 Other cytomegaloviral diseases

== ENCOUNTER 2020-11-06 11:14 | Inpatient (IN) | payer MEDICARE, MEDICAID ==
[~2020-11-06] VITALS: Ht 157.5 cm; Wt 56.8 kg
[2020-11-06] VITALS (8 sets, daily range): BP systolic 116–137; BP diastolic 56–74
[~2020-11-06 11:14] MED LIST changes: -MYCO500T PO; -PROC1CRE5 PR; -[UNRECOGNIZED DRUG - REMARK]
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
--- OUTSIDE RECORDS SUMMARY | 2020-11-06 11:41 | CCD | Continuity of Care Document ---
Author Author [facility] Organization [facility] Address [address] [place] [address] Phone Support Name Relationship Address Phone Wali Ramsey PRS [address] [place] [address] Max Coffey PRS [address] [place] [address] Alexis Spangler PRS [address] [place] [address] Allergies, Adverse Reactions, Alerts Allergen Type Severity Reaction Last Updated Verified Status Antihistamines - Alkylamine Allergy Rash October 04, 2020 4:05pm Yes Active cephalexin Allergy Anaphylaxis October 04, 2020 4:05pm Yes Active clarithromycin Allergy Nausea/Vomit/Gastric October 04, 2020 4:05pm Yes Active doxycycline Allergy Nausea/Vomit/Gastric October 04, 2020 4:05pm Yes Active famotidine Allergy Nausea/Vomit/Gastric October 04, 2020 4:05pm Yes Active gabapentin Allergy Rash October 04, 2020 4:05pm Yes Active Iodinated Contrast Media Allergy Anaphylaxis October 04, 2020 4:05p m Yes Active levofloxacin Allergy Hives October 04, 2020 4:05pm Yes Active meloxicam Allergy Nausea/Vomit/Gastric October 04, 2020 4:05pm Yes Active nitrofurantoin Allergy Other, not listed October 04, 2020 4:05pm Yes Active Penicillins Allergy Anaphylaxis October 04, 2020 4:05pm Yes Active procaine Allergy October 04, 2020 4:05pm Yes Active Sulfa (Sulfonamide Antibiotics) Allergy Hives October 04, 2020 4:05pm Yes Active Medications Medication Status Dose Units Route Directions Qty Days Start Date End Date Instructions Prednisone Active 20 MG PO Once Per Day October 04, 2020 2:53pm Quetiapine Active 12.5 MG PO At Bedtime October 04, 2020 2:56pm Furosemide Active 40 MG PO Once Per Day October 04, 2020 2:56pm Mycophenolate Mofetil Active 1000 MG PO 2 Times Per Day October 04, 2020 2 :56pm Pyridostigmine [place] Active 60 MG PO Four Times a Day October 04, 2020 2 :56pm Calcium Carbonate (Tums) 200 mg calcium (500 mg) Tablet,Chewable Active 400 MG PO 2 Times Per Day October 04, 2020 2:56pm Aspirin Active 81 MG PO At Bedtime October 04, 2020 2:56pm Ergocalciferol (Vitamin D2) (Vitamin D2) 1,250 mcg (50,000 unit) Capsule Active 1250 MCG PO Every Week October 04, 2020 2:56pm Metoprolol Tartrate Active 25 MG PO 2 Times Per Day October 04, 2020 2:56pm Rivaroxaban (Xarelto) 20 mg tablet Active 20 MG PO Once Per Day October 04, 2020 2 :56pm Esomeprazole Magnesium Active 40 MG PO Once Per Day October 04, 2020 3:48pm L. Acidophilus-L. Rhamnosus (Probiotic) 15 billion cell capsule Active 1 CAP PO Once Per Day October 06, 2020 10:38am Metronidazole Active 500 MG PO Every 8 hours October 06, 2020 11:00am Cefpodoxime Active 200 MG PO 2 Times Per Day October 06, 2020 11:05am must administer with a meal/food start at 9 pm on 10/06/20 to complete the course of antibiotics. Problems No problem information available. Procedures Procedure Date Performed Status Xray Chest One View October 04 10:09am completed CT Abd/pel w/o contrast September 5:41pm completed CT Thorax without contrast September 192020 5:43pm completed Blood Culture October 04, 2020 active Influenza-Like Illness (PCR) October 04, 2020 completed October 04, 2020 com pleted Relevant Diagnostic Tests and/or Laboratory Data Laboratory Results Test Date/Time Result Interpretation Reference Range Result Comment Performing Site White Blood Count October 06, 2020 5:43a m 7.9 10e3/uL 4.45-10.71 [facility], [address] [place] [address] Red Blood Count October 06, 2020 5:43am 3.17 10e6/uL 4.20-5.40 [facility], [address] [place] [address] Hemoglobin October 06, 2020 5:43am 9.1 g/dL 10.7-15.4 [facility], [address] [place] [address] Hematocrit October 06, 2020 5:43am 30.0 % 37-47 [facility], [address] [place] [address] Mean Corpuscular Volume September 5:43am 94.6 fl 80-96 [facility], [address] [place] [address] Mean Corpuscular Hemoglobin October 06, 2020 5:43am 28.7 pg 27-31 [facility], [address] [place] [address] Mean Corpuscular Hemoglobin Concent October 06, 2020 5:43am 30.3 g/dl 33-37 [facility], [address] [place] [address] Red Cell Distribution Width October 06, 2020 5:43am 15 % 11-15 [facility], [address] [place] [address] Platelet Count October 06, 2020 5:43am 454 10e3/ul 130-472 [facility], [address] [place] [address] Mean Platelet Volume October 06 021 5:43am 9.5 fl 9.1-13.1 [facility], [address] [place] [address] Neutrophils (%) (Auto) October 06, 2020 5:43am 71.2 % 41-77 [facility], [address] [place] [address] Absolute Neutrophil October 06 5:43am 5.6 # 1.7-7.6 [facility], [address] [place] [address] Lymphocytes (%) (Auto) October 06, 2020 5:43am 18.7 % 14-46 [facility], [address] [place] [address] Lymphocytes # (Auto) October 06, 021 5:43am 1.5 # 0.6-4.6 [facility], [address] [place] [address] Monocytes (%) (Auto) October 06 5:43am 8.5 % 4-12 [facility], [address] [place] [address] Monocytes # October 06, 2020 5:43am 0.7 # 0.2-1.2 [facility], [address] [place] [address] Eosinophils (%) (Auto) October 06, 2020 5:43am 0.5 % 0-7 [facility], [address] [place] [address] Absolute Eosinophils (CBC) September 192020 5:43am 0.0 # 0.0-0.5 [facility], [address] [place] [address] Basophils (%) (Auto) October 06 5:43am 0.1 % 0.4-1.3 [facility], [address] [place] [address] Absolute Basophils (CBC) September 5:43am 0.0 # 0.0-0.2 [facility], [address] [place] [address] Immature Granulocyte % (Auto) 2020 5:43am 1.0 % 0-2 [facility], [address] [place] [address] Absolute Immature Granulocyte (auto October 06, 2020 5:43am 0.1 # 0-0.1 [facility], [address] [place], [place] [id number] Add Manual Differential September 5:43am No [facility], [address] [place] [address] Differential Total Cells Counted Sep 10:40am 100 [facility], [address] [place] [address] Neutrophils (Manual) October 04 10:40am 83 % 41-77 [facility], [address] [place] [address]605 Band Neutrophils October 04, 2020 10:40a m 2 % 0-5 [facility], [address] [place] [address] Lymphocytes (Manual) October 04 10:40am 10 % 14-46 [facility], [address] [place] [address] 17827 Monocytes (Manual) October 04 10:40am 4 % 4-12 [facility], [address] [place] [address] 07560 Eosinophils (Manual) October 04, 021 10:40am 1 % 0-7 [facility], [address] [place] [address]98[address] Platelet Estimate October 04, 2020 10:40am Appears normal NORMAL [facility], [address] [place] [address] 38869 RBC Morphology 2 October 04, 2020 10:40a m Appears normal NORMAL [facility], [address] [place] [address]40 Prothrombin Time October 04, 2020 10:40a m 11.4 SECONDS 9.6-12.3 [facility], [address] [place] [address] 42989 INR International Normalized Ratio J anuary 2020 10:40am 1.1 0.9-1.1 THE INR IS OPERATIONALLY DEFINED FOR [place] SH PLASMA FROMPATIENTS STABILIZED ON ORAL ANTICOAGULANTS. ROUTINE ANTICOAGULANT THERAPY 2.0-3.0RECURRENT SYSTEMIC EMBOLISM/HEART VALVE REPLACEMENT 2.5-3.5 [facility], [address] [place] [address] 60753 Partial Thromboplastin Time - Arabella J anuary 2020 10:40am 25.5 SECONDS 22.7-31.6 [facility], [address] [place] [address] 24341 Blood Urea Nitrogen October 06 5:43am 9 mg/dL 06-11 [facility], [address] [place] [address] Sodium Level October 06, 2020 5:43am 142 mmol/L 132-146 [facility], [address] [place] [address] 78127 Potassium Level October 06, 2020 5:43am 3.2 mmol/L 3.5-5.5 [facility], [address] [place] [address] Chloride Level October 06, 2020 5:43am 108 mmol/l 99-109 [facility], [address] [place] [address] 93630 Carbon Dioxide Level October 06 5:43am 28 mmol/l [facility], [address] [place] [address] 31248 Anion Gap October 06, 2020 5:43am 9 mmol/l - [facility], [address] [place] [address] 43572 Glucose Level October 06, 2020 5:43am 80 mg/dL 74-106 [facility], [address] [place] [address] 65166 Bedside Glucose October 05, 2020 4:45pm 309 70-110 PATEL PCX (POC GLUCOSE) Creatinine October 06, 2020 5:43am 0.6 mg/dL 0.5-1.1 [facility], [address] [place] [address] 02288 Glomerular Filtration Rate Calc Louis ferrell 2020 5:43am Greater than 60 ml/min ABOVE 60 [facility], [address] [place] [address] 92687 Alanine Aminotransferase (ALT/SGPT) October 06, 2020 5:43am 13 U/L 10-49 [facility], [address] [place] [address] 21255 Aspartate Amino Transf (AST/SGOT) [facility] 2020 5:43am 11 U/L 0-33 [facility], [address] [place] [address] 98807 Alkaline Phosphatase October 06 5:43am 49 U/L 45-129 [facility], [address] [place] [address] 17211 Calcium Level October 06, 2020 5:43am 7.9 mg/dL 8.5-10.1 [facility], [address] [place] [address] 39635 Total Bilirubin October 06, 2020 5:43am 0.2 mg/dL 0.3-1.2 [facility], [address] [place] [address] 52110 Albumin October 06, 2020 5:43am 2.4 g/dL 3.2-4.8 [facility], [address] [place] [address] 28470 Serum Total Protein October 06 5:43am 5.0 g/dL 5.7-8.2 [facility], [address] [place] [address] 75923 Lactic Acid Level October 04, 2020 12:40pm 2.0 mmol/L 0.5-2.2 [facility], [address] [place] [address] 19895 Troponin I October 04, 2020 10:40am Less than 0.015 ng/mL 0.00-0.09 Less than 0.09 NG/ML Negative0.10 - 0.77 NG/ML High Risk0.78 NG/ML or Greater Positive The WHO defined the cutoff (definition for diagnosis of IA)for this method as 0.78 ng/ml. [facility], [address] [place] [address] 28216 Microbiology Results Procedure Source Result Collection Date/Time Result Date/Time Result Comment Performing Site Influenza-Like Illness (PCR) Nasopharyngea l No Organisms Detected October 04, 2020 10:45am October 04, 2020 11:17am [facility], [address] [place], [place] [address] Nasopharyngeal October 04, 2020 10:45am October 04, 2020 11:17am [facility], [address] [place] [address] 39296 Diagnostic Imaging Reports Report Dictated Date/Time Dictated By Status Radiology Report October 04, 2020 10:59a m Papo Montoya MD [place] [address] [place] [place] [id number] [phone] NAME SEX PT STATUS ACCOUNT NUMBER [facility] ER [id number] ORDERING PHYSICIAN LOCATION MEDICAL RECORD NO. Max Coffey MD ER [id number] ATTENDING PHYSICIAN DATE OF DATE OF EXAM/TIME BraulioWali 1940 10[birth year]/201008 TYPE / EXAM Xray Chest One View REASON FOR EXAM r/o pneumonia; covid pending Clinical History/Indication for Exam: r/o pneumonia; covid pending RADIOGRAPH OF THE CHEST 1 VIEW INDICATION: r/o pneumonia; covid pending COMPARISON: No relevant prior studies available. FINDINGS: Lungs: Suspect perihilar infiltrates. Pleural space: Left effusion No pneumothorax. Heart: Unremarkable. No cardiomegaly. Mediastinum: Unremarkable. Bones/joints: Unremarkable. IMPRESSION: Suspect perihilar infiltrates. REPORT SIGNATURE ON FILE 10/04/2020 (10:59 Eastern Time ) Signed by: Papo Montoya M.D. Reported By Papo Montoya MD on 10/04/20 105 Signed By Papo Montoya MD on 10/04/201058 Date Time CC: Wali Ramsey M.D.; Papo Montoya MD Techn: EBEBR Trans Dt/Tm: Trans by: DT Prt Dt/Tm: 6043-1050: Total DLP = 0.00 mGy-cm Fluoroscopy Time (in secs): Health Concerns Health Concerns may be documented in an alternate section. Advance Directives Advance Directive Response Recorded Date/Time Advanced Directive No Jose Raul herb 2020 2:35pm Does Patient have a DNR? No October 04, 2020 2:35pm Healthcare Proxy No Louis mariaelena 2020 2:35pm Health Care Proxy Name Costa Villalobos October 04, 2020 2:35pm Health Care Proxy October 04, 2020 2:35pm Living Will No November 02, 2017 6:13pm Chief Complaint and Reason for Visit Chief Complaint PNEUMONIA Encounters Encounter Location(s) Ar rival/Admit Date Discharge/Depart Date Provider(s) Discharged Inpatient [facility] October 04, 2020 12:07pm September 192020 12:50pm Alexis Spangler MD Assessments No Assessments Information Available Functional Status Observation Response Ignacio e Recorded Functional Status Moderate Assistance October 04, 2020 2:35pm Goals Goals may be documented in an alternate section. Immunizations No Immunization Information Available Mental Status Observation Response Ignacio e Recorded Impairments Mental/Cognitive October 04, 2020 9:58am Medical Equipment No Medical Equipment Information available Insurance Providers Guarantor Colby Little Address [address] [place] [address] Contact Info. Home Phone: Payer Policy Id Coverage Id Subscriber's Name Subscriber Id Effective Date Expiration Date MEDICARE [employer] [id number] [employer] [id number] MEDICAID [place] [id number] [employer] [id number] MEDICAID [id number] [employer] [id number] MEDICARE [id number] [employer] [id number] Self Pay Self N/A Plan of Treatment Future Tests Future scheduled test information is unavailable Pending Tests Pending diagnostic test information is unavailable Future Visits Future appointment information is unavailable Referrals to Other Providers Reason for Referral Referral Start Date Provider Provider Conta ct Information Provider Address We will call you with an appointment Wali Ramsey Work Phone: [phone] [facility] [address] Future Procedures Future procedure information is unavailable Future Medications Future medication information is unavailable Patient Instructions Pneumonia (DC) Social History Smoking Status Status Date of Observation Unknown if ever smoked October 06, 2020 11:09am Observation Status Observation Response Ignacio e of Response Smoking Status Unknown if ever smoked October 06, 2020 11:09am Assigned Sex Female Vital Signs Vital Reading Result Ref erence Range Collection Date/Time Height 64 [in_i] October 06, 2020 11:09am Weight 123.00 [lb_av] October 06, 2020 11:09am Body Temperature 98.4 [degF] 97.6-99.5 October 06, 2020 9:00am Heart Rate 78 /min 60-100 October 06, 2020 9:38am Respiratory rate 18 /min 12-24 October 06, 2020 9:00am Oxygen saturation by Pulse oximetry 98 % 95- 100 October 06, 2020 9:00am BP Systolic 131 mm[Hg] October 06, 2020 9:38am BP Diastolic 60 mm[Hg] October 06, 2020 9:38am BMI (Body Mass Index) 21.1 kg/m2 October 06, 2020 11:09am Hospital Discharge Instructions Additional Instructions f/u with PMD for stool culture result f/u with PMD for pulmonary referral for CT finding of "Right middle lobe 8.6 mm and medial left lung base 9.7 mm noncalcified nodules" take medication as prescribed
--- OUTSIDE RECORDS SUMMARY | 2020-11-06 11:41 | CCD | Continuity of Care Document ---
Author Author Jacqui EPPS MD Organization Unknown Address [address] [place] [address], [address] [address] Phone [phone] Care Team Providers Care Pullman Clerk Name Role Phone Wali Ramsey MD [facility] [phone] Wagner Kirkpatrick MD [facility] Unavailable Problems Active Problems Provider Date Anemia Onset: Constipation Onset: Contusion of rib Onset: Coronary arteriosclerosis Onset: 000 Dysphagia Onset: Patient encounter status Onset: 00 Fall Onset: Gastroesophageal reflux disease Onset: 0 Intertrochanteric fracture Onset: Migraine Onset: Strain of back muscle Onset: Myasthenic crisis Onset: Paroxysmal atrial fibrillation Onset: Raynaud's disease Onset: Raynaud's phenomenon Onset: Spasm of cervical paraspinous muscle Ons et: History of operative procedure on hip On set: History of myocardial infarction Onset: Low back strain Onset: Social History Type Date Description Comments Sex Unknown ETOH Use Denies alcohol use Tobacco Use Start: Unknown End: Unknown Patient is a former smoker Allergies, Adverse Reactions, Alerts Active Allergies Reaction Severity Comments Date Contrast Dye 10/22/2015 Meloxicam N/V Mild 10/02/2019 Doxycycline 10/22/2015 Nitrofurantoin parasthesis Moderate 10/02/2019 Gabapentin 10/22/2015 Pepcid 10/22/2015 Levaquin 10/22/2015 sulfa drugs 10/22/2015 Biaxin 10/22/2015 Novocain 10/22/2015 Penicillins 10/22/2015 Keflex 10/22/2015 Antihistamines 10/22/2015 Medications Active Medications SIG Qnty Indications Ordering Provide r Date Voltaren 1% Gel Apply 2 grams to left wrist 4 times a day as needed 200gm S52.512D Silvestre Bertrand MD 02/18/2020 Metoprolol Tartrate 25mg Tablets Twice A Day 20tabs Unknown 02/08/2019 Pyridostigmine Eudora 60mg Tablet s Four Times Daily 40tabs Unknown 02/08/2019 Xarelto 20mg Tablets Daily@18 10tabs Unknown 02/08/2019 Zoledronic Acid 5mg/100ML Solution As Directed Unknown Quetiapine Fumarate 25mg Tablets Every Evening 30tabs Unknown Prednisone 10mg Tablets Daily 5tabs Unknown Mycophenolate Mofetil 500mg Tablet s Twice A Day 120tabs Unknown Furosemide 40mg Tablets Daily 30tabs Unknown Aspirin 81mg Tablets DR Daily At Bedtime Unknown Vesicare 5mg Tablets Unknown Tramadol HCL 50mg Tablets 1 every 4-6 hours as needed pain Unknown Xarelto 10mg Tablets 1 by mouth every day Unknown Drisdol [id number] Capsules take 1 tab by mouth once weekly. Unknown Nexium 40mg Capsules DR 1 by mouth every day Unknown Reclast 5mg/100ML Solution iv yearly Unknown Acetaminophen Extra Strength 500mg/15ML Liquid Unknown Immunizations Description No Information Available Vital Signs Date Vital Result Comment 09/15/2020 11:15am Body Temperature 97.5 F 10/01/2019 10:54am Weight 131.62 lb BMI (Body Mass Index) 20.0 kg/m2 Results Description No Information Available Procedures Date Code Description Status 10/27/2020 78639 X-Ray Femur Minimum 2 Views Comp leted 09/15/2020 56563 X-Ray Femur Minimum 2 Views Comp leted 08/21/2020 84700 X-Ray Femur Minimum 2 Views Comp leted 07/23/2020 11132 FX Femur Shaft W/Plate/Screws Co mpleted 07/23/2020 65023 FX Femur Shaft W/Plate/Screws Co mpleted Medical Devices Description No Information Available Encounters Type Date Location Provider Dx Diagnosis Office Visit 07/23/2020 3:44p [facility] Petr Epps MD S7 2.331A Displaced oblique fracture of shaft of right femur, init Assessments Date Code Description Provider 10/27/2020 S72.331D Displaced oblique fr acture of shaft of right femur, subsequent encounter for closed fracture with routine healing Petr Epps MD 09/15/2020 S72.331D Displaced oblique fr acture of shaft of right femur, subsequent encounter for closed fracture with routine healing Petr Epps MD 08/21/2020 S72.331D Displaced oblique fr acture of shaft of right femur, subsequent encounter for closed fracture with routine healing Petr Epps MD 07/23/2020 S72.331A Displaced oblique fr acture of shaft of right femur, initial encounter for closed fracture Silvestre Bertrand MD 07/23/2020 S72.331A Displaced oblique fr acture of shaft of right femur, initial encounter for closed fracture Petr Epps MD Plan of Treatment 10/27/2020 - Petr Epps MD* S72.331D Displaced oblique fracture of shaft of right femur, subsequent encounter for closed fracture with routine healing* Follow up:* 8 weeks with DPV rt femur re-check w/xrays Functional Status Description No Information Available Mental Status Description No Information Available Referrals Description No Information Available
--- OUTSIDE RECORDS SUMMARY | 2020-11-06 11:41 | CCD ---
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 Active confirmed 297910053 Problem Overactive bladder N32.81 Active confirmed 2 54531472 Problem Post-traumatic osteoarthritis of left hand M19.142 Active confirmed 102363373 Problem Hand pain, left M79.642 Active confirmed 316 521147667621 Problem 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 Active confirmed 57999855 Problem Closed fracture of right hip with routin e healing, subsequent encounter S72.001D Active confirmed 686638867 Problem Constipation, chronic K59.09 Active confirmed 201272698 Problem Impingement syndrome of right shoulder M75.41 A ctive confirmed 408676568 Problem Hallucination R44.3 Active confirmed 598847 1 Problem Sensorineural hearing loss (SNHL) of both ears H90 .3 Active confirmed 102325515 Problem Raynaud's phenomenon (secondary) I73.00 Active confirmed 515826203 Problem H/O TIA (transient ischemic attack) and stroke Z86 .73 Active confirmed 213005080 Problem Recurrent sinusitis J32.9 Active confirmed 695043337 Problem Myasthenia gravis G70.00 Active confirmed 91 891230 Problem Muscle spasticity M62.838 Active confirmed 2 61507403 Problem DJD (degenerative joint disease), cervical M50.30 Active confirmed 11193325 Problem Primary osteoarthritis of both knees M17.0 Act srikanth confirmed 789971032 Problem Vitamin D deficiency E55.9 Active confirmed 22880179 Problem Bilateral hearing loss, unspecified hearing loss type H91.93 Active confirmed 78915383 Problem Trochanteric bursitis of both hips M70.61 Activ e confirmed 5696318 Problem Non-seasonal allergic rhinitis, unspecified trigger J30.89 Active confirmed 04468390 Problem IFG (impaired fasting glucose) R73.01 Active confir med 288823082 Problem Chronic diastolic congestive heart failure I50.32 Active confirmed 254018196 Problem First degree atrioventricular block I44.0 Acti ve confirmed 902906483 Problem Paroxysmal atrial fibrillation I48.0 Active confir med 206628048 Problem Hip osteoarthritis M16.9 Active confirmed 2 60949026 Problem Leukocytosis, unspecified type D72.829 Active confi rmed 604797248 Problem Age related osteoporosis M81.0 Active confirmed 72351930 Problem Peripheral sensory neuropathy G62.9 Active confirm ed 160952087 Problem Metatarsalgia, right foot M77.41 Active confir med 17246134728157826 Problem Dysphagia R13.10 Active confirmed 36075186 Problem Mixed hyperlipidemia E78.2 Active confirmed 107858820 Problem Other cytomegaloviral diseases B25.8 Active confir med 09252532 Problem Esophageal dysphagia R13.10 Active confirmed 24621343 Problem Osteopenia M85.80 Active confirmed 379709751 Problem Ptosis of both eyelids H02.403 Active confirmed 52249986 Problem Gastro-esophageal reflux disease without esophagitis K21.9 Active confirmed 271642441 Problem Bleeding hemorrhoids K64.9 Active confirmed 85971510 Problem Sensory peripheral neuropathy G62.9 Active confirm ed 846028689 Problem Breast cancer screening Z12.39 Active confirmed 940512038 Problem Perleche K13.0 Active confirmed 905311023 Problem Candidiasis of skin B37.2 Active confirmed 35813352 ALLERGIES Allergen (clinical drug ingredient) Drug/Non Drug Allergy do cumented on EMR Reaction Allergy Type Onset Date Status macrodantin , paresthesias Non Drug Allergy Act srikanth Sulfa (for allergy use only) Rash, Hives Drug Allergy Active Gabapentin 100 Rash Drug Allergy Active famotidine Pepcid(NDC Code:[address]-90) vomiting Drug Allergy Active Novocain passed out Drug Allergy Active cephalexin Keflex(NDC Code:[address]-24) Anaphylaxis Drug Allergy Active meloxicam Mobic([facility] Code:[address]-65) Nausea/Vomiting Drug Allergy Active clarithromycin Biaxin dyspepsia Drug Allergy Active Penicillin (For Allergies Use Only) Anaphylaxis Drug Aller gy Active doxycycline Doxycycline Hyclate([facility] Code:[address]-92) N/V Dr ug Allergy Active antihistamines Rash Non Drug Allergy Acti ve contrast dye can't breathe Non Drug Allergy Act srikanth Levaquin Hives Drug Allergy Active ENCOUNTERS from 1940 to 2020-10-20 Encounter Location Date Provider Diagnosis [facility] [place] [address] Oct, Wali Ramsey IMMUNIZATIONS Vaccine Route Administration Date [...] Education Language: Question Answer Notes Languages spoken: [place] Sudanese Taoist: Question Answer Notes Taoist 13 Judaism Sexual Hx: Question Answer Notes Had sex [...] % as directed Orally Daily Active Pyridostigmine [place] 60 MG 1 tablet Orally qid for [...] a day for 90 day(s) Active Ergocalciferol 31575 UNIT 1 capsule Orally weekly Active Nystatin 044816 UNIT/GM 1 application Externally TID perianal for [...] Information RESULTS No Results REASON FOR VISIT PA prednisone 20mg tab, QD MEDICAL (GENERAL) HISTORY Type Description Date Medical [...] 06/2016 Dr. 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, -serology Surgical History hysterectomy, total with USO Surgical History cholecystectomy Surgical History appendectomy Surgical History colonoscopy/EGD with gastrit is, gastric polyp, duodenitis, redundant colon, internal hemorrhoids-Davina 07/2006 Surgical History R rotator cuff repair-Moraima 06/2012 Surgical History EGD/colonoscopy-grade II int ernal hemorrhoids, bile gastritis- mild chronic gastritis, - H pylori-Davina 12/2013 Surgical History L ZYI-Jkznphg-LOM 06/29/2016 Surgical History open reduction R hip IT frac ture c cephalomeddullary nail placement-Aiden ([facility]) 10/11/17 Surgical History R THR and removal [...] PRBC t o 13.8 and -HO at ri, EGD/colon c scattered ileal/colonic ulcer, gastritis-by path cw apthous stomatitis, rivarox held at ri, CXR PA/LAT NAD 06/16-06/20/2020 Hospitalization History 3D persistent diarrhea c BRB s FC, abdomina pain, CT AP liquid stool in transv/desc colon, mild diffuse colonic wall thickening, no drop in hgb, WBC 10.6stool PCR CX 07/03- Hospitalization History [facility]-mechancial fall c R dist al humeral fx sp ORIF-Van, then rehab -10/01/20 Hospitalization History [facility] 10/04- Goals Section No Information Health [...] a day for 90 da y(s) Pyridostigmine [place] 60 MG 1 tablet Orally qid for 90 day(s) Anusol-HC 2.5 % 1 application Rectal tid for 90 day(s) Dec, 020 Quetiapine Fumarate 25 MG 1 tab Orally at bedtime for 90 day(s) Depend Pant Medium 1 ea dx code n32/81 Weight 131 da vinny size M MDD 25 for 30 days Nov, Ergocalciferol 31761 UNIT 1 capsule Orally weekly Tums Ultra 1000 1000 MG 1 tablet Orally bid for 90 day(s) Prolia 60 MG/ML as directed Subcutaneous Metoprolol Tartrate 25 mg 1 tablet with food Orally Twice a day for 90 day(s) Nystatin 348803 UNIT/GM 1 application Externally TID perianal fo r 30 Days Metamucil 48.57 % as directed Orally Daily Esomeprazole Magnesium 40 MG 1 capsule Orally every morning for 30 days Next Appt Details Provider Name:Wali Ramsey, 2020-12-22 0 3:00:00 PM, [address] [place], [address], Insurance Providers Payer Name Payer Address Payer Phone Insured Name Patient Relati onship to Insured Coverage Start Date Coverage End Date MEDICARE Part A and B [address] [facility] [address] COLBY MULLER MEDICAID [employer] [address] [facility] [address] COLBY MULLER
--- OUTSIDE RECORDS SUMMARY | 2020-11-06 11:41 | CCD ---
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 Active 741200663 Problem Overactive bladder N32.81 Active 237083534 Problem Post-traumatic osteoarthritis of left hand M19.142 Active 541890740 Problem Hand pain, left M79.642 Active 521738188762374 Problem 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 Active 62708835 Problem Closed fracture of right hip with routin e healing, subsequent encounter S72.001D Active 817058076 Problem Constipation, chronic K59.09 Active 058400120 Problem Impingement syndrome of right shoulder M75.41 A ctive 386000906 Problem Hallucination R44.3 Active 4095320 Problem Sensorineural hearing loss (SNHL) of both ears H90 .3 Active 034111506 Problem Raynaud's phenomenon (secondary) I73.00 Active 403489111 Problem H/O TIA (transient ischemic attack) and stroke Z86 .73 Active 807814687 Problem Recurrent sinusitis J32.9 Active 017072553 Problem Myasthenia gravis G70.00 Active 17123348 Problem Muscle spasticity M62.838 Active 596697848 Problem DJD (degenerative joint disease), cervical M50.30 Active 69751898 Problem Primary osteoarthritis of both knees M17.0 Act srikanth 407316782 Problem Vitamin D deficiency E55.9 Active 29948424 Problem Bilateral hearing loss, unspecified hearing loss type H91.93 Active 29104813 Problem Trochanteric bursitis of both hips M70.61 Activ e 5321092 Problem Non-seasonal allergic rhinitis, unspecified trigger J30.89 Active 48423249 Problem IFG (impaired fasting glucose) R73.01 Active 3 57223044 Problem Chronic diastolic congestive heart failure I50.32 Active 026862423 Problem First degree atrioventricular block I44.0 Acti ve 034752289 Problem Paroxysmal atrial fibrillation I48.0 Active 2 54375361 Problem Hip osteoarthritis M16.9 Active 766363916 Problem Leukocytosis, unspecified type D72.829 Active 1 17311014 Problem Age related osteoporosis M81.0 Active 9533127 1 Problem Peripheral sensory neuropathy G62.9 Active 23 9165681 Problem Metatarsalgia, right foot M77.41 Active 875331 33170437578 Problem Dysphagia R13.10 Active 81183558 Problem Mixed hyperlipidemia E78.2 Active 744179903 Problem Other cytomegaloviral diseases B25.8 Active 2 6622622 Problem Esophageal dysphagia R13.10 Active 05375016 Problem Osteopenia M85.80 Active 655505975 Problem Ptosis of both eyelids H02.403 Active 94012846 Problem Gastro-esophageal reflux disease without esophagitis K21.9 Active 911883328 Problem Bleeding hemorrhoids K64.9 Active 33773073 Problem Sensory peripheral neuropathy G62.9 Active 26 7226211 Problem Breast cancer screening Z12.39 Active 36847306 8 Problem Perleche K13.0 Active 239405888 Problem Candidiasis of skin B37.2 Active 72241121 ALLERGIES Allergen (clinical drug ingredient) Drug/Non Drug Allergy do cumented on EMR Reaction Allergy Type Onset Date Status macrodantin , paresthesias Non Drug Allergy Act srikanth Sulfa (for allergy use only) Rash, Hives Drug Allergy Active Gabapentin 100 Rash Drug Allergy Active famotidine Pepcid([facility]C Code:[address]-59) vomiting Drug Allergy Active Novocain passed out Drug Allergy Active cephalexin Keflex([facility]C Code:[address]-00) Anaphylaxis Drug Allergy Active meloxicam Mobic([facility] Code:[address]-45) Nausea/Vomiting Drug Allergy Active clarithromycin Biaxin dyspepsia Drug Allergy Active Penicillin (For Allergies Use Only) Anaphylaxis Drug Aller gy Active doxycycline Doxycycline Hyclate([facility] Code:[address]-81) N/V Dr alexis Allergy Active antihistamines Rash Non Drug Allergy Acti ve contrast dye can't breathe Non Drug Allergy Act srikanth Levaquin Hives Drug Allergy Active ENCOUNTERS from 1940 to 2020-10-07 Encounter Location Date Provider Diagnosis [address] [place] [address] Sep, Wali Ramsey IMMUNIZATIONS Vaccine Route Administration Date Status Influenza (Denied) Unknown Jul 20, 2019 Administered [...] Education Language: Question Answer Notes Languages spoken: French Samaritan: Question Answer Notes Samaritan 13 Buddhism Sexual Hx: Question Answer Notes Had sex [...] Notes Start Da te End Date Status Metamucil 48.57 % as directed Orally Daily Active Esomeprazole Magnesium 40 MG 1 capsule Orally every morning Active PredniSONE 20 MG 1 tablet Orally Once a day Active Aspirin EC 81 MG 1 tablet by mouth Once a day Active Metoprolol Tartrate 25 MG 1 tablet with food Orally Twice a day Active Ergocalciferol 15446 UNIT 1 capsule Orally weekly Active Prolia 60 MG/ML as directed Subcutaneous Active Furosemide 40 MG 1 tablet Orally every morning for 90 day(s) Active Tums Ultra 1000 1000 MG 1 tablet Orally bid for 90 day(s) Active Nystatin 851211 UNIT/GM 1 application Externally TID perianal for 30 Days Active Acetaminophen 500 MG 1 capsule by mouth bid prn, MDD 2 Active Quetiapine Fumarate 25 MG 1 tab Orally at bedtime for 90 day(s) Active Diclofenac Sodium 1 % 4 gm Transdermal QID to B knees for 30 day(s) Active Mycophenolate Mofetil 250 MG 2 capsules Orally bid Active Esomeprazole Magnesium 40 MG 1 capsule Orally every morning for 30 da ys Active Depend Pant Medium 1 ea Dx Code Weight 123 as needed for MDD 24 for 30 days Nov, Active Fluticasone Propionate 50 MCG/ACT 2 sprays each nostri l qam Nasally every morning for 90 day(s) Active Valganciclovir HCl 450 MG 2 tablets with a meal Orally bid for 21 day s Active Ensure - 240 ml Orally bid for 90 day(s) Active Pyridostigmine Chadron 60 MG 1 tablet Orally qid Active Anusol-HC 2.5 % 1 application Rectal Twice a day for 30 day(s) Dec, Active PROCEDURES No Information RESULTS No Results REASON FOR VISIT Eye closing MEDICAL (GENERAL) HISTORY Type Description Date Medical History MG, 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 joint arthritis and impingement by MRI February 2011 Medical History B marked hip OA sp L THR 06/2016 Dr. Guillermo mosley Medical History cervical TLT-cpzhc-gxsxj C3- 7, R C5/6 mild NF narrowing [...] - H pylori-Davina 12/2013 Surgical History L UQX-Seyouxc-IYV 06/29/2016 Surgical History open reduction R hip IT frac ture c cephalomeddullary nail placement-Aiden ([facility]) 10/11/17 Surgical History R THR and removal of intramedullary swapna ce-Dr. Burt Ruiz 11/20/18 Hospitalization History R IT hip fracture sp [...] in hgb, WBC 10.6stool PCR CX 07/03- Goals Section No Information Health Concerns No Information MEDICAL EQUIPMENT No Information MENTAL STATUS No Information FUNCTIONAL STATUS No Information ASSESSMENTS No Information PLAN OF TREATMENT Medication Medication Name Sig Start Date Stop Date Nystatin 322545 UNIT/GM 1 application Externally TID perianal fo r 30 Days Ensure - 240 ml Orally bid for 90 day(s) Tums Ultra 1000 1000 MG 1 tablet Orally bid for 90 day(s) Furosemide 40 MG 1 tablet Orally every morning for 90 day(s) Acetaminophen 500 MG 1 capsule by mouth bid prn, MDD 2 Valganciclovir HCl 450 MG 2 tablets with a meal Orally bid for 2 1 days Quetiapine Fumarate 25 MG 1 tab Orally at bedtime for 90 day(s) Prolia 60 MG/ML as directed Subcutaneous Esomeprazole Magnesium 40 MG 1 capsule Orally every morning for 30 days Diclofenac Sodium 1 % 4 gm Transdermal QID to B knees for 30 day (s) Ergocalciferol 94892 UNIT 1 capsule Orally weekly Aspirin EC 81 MG 1 tablet by mouth Once a day Pyridostigmine Chadron 60 MG 1 tablet Orally qid Fluticasone Propionate 50 MCG/ACT 2 sprays each nostri l qam Nasally every morning for 90 day(s) Metamucil 48.57 % as directed Orally Daily Mycophenolate Mofetil 250 MG 2 capsules Orally bid PredniSONE 20 MG 1 tablet Orally Once a day Metoprolol Tartrate 25 MG 1 tablet with food Orally Twice a day Next Appt Details Provider Name:Wali Ramsey, 2020-10-17 0 2:00:00 PM, [facility] [place], [address], Insurance Providers Payer Name Payer Address Payer Phone Insured Name Patient Relati onship to Insured Coverage Start Date Coverage End Date MEDICARE Part A and B [address] [facility] [address] COLBY MULLER MEDICAID [employer] [address] [facility] [address] COLBY MULLER
--- OUTSIDE RECORDS SUMMARY | 2020-11-06 11:41 | CCD ---
Author Author [facility] Organization 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 Active 12055889 Problem Closed fracture of right hip with routin e healing, subsequent encounter S72.001D Active 742900510 Problem Constipation, chronic K59.09 Active 344629106 Problem Impingement syndrome of right shoulder M75.41 A ctive 207877011 Problem Hallucination R44.3 Active 8555739 Problem Sensorineural hearing loss (SNHL) of both ears H90 .3 Active 942180585 Problem Raynaud's phenomenon (secondary) I73.00 Active 433777555 Problem H/O TIA (transient ischemic attack) and stroke Z86 .73 Active 610259598 Problem Recurrent sinusitis J32.9 Active 740878202 Problem Myasthenia gravis G70.00 Active 12232508 Problem Muscle spasticity M62.838 Active 322512059 Problem DJD (degenerative joint disease), cervical M50.30 Active 41965935 Problem Primary osteoarthritis of both knees M17.0 Act srikanth 320075172 Problem Vitamin D deficiency E55.9 Active 33631148 Problem Bilateral hearing loss, unspecified hearing loss type H91.93 Active 43042484 Problem Trochanteric bursitis of both hips M70.61 Activ e 2944114 Problem Non-seasonal allergic rhinitis, unspecified trigger J30.89 Active 19804730 Problem IFG (impaired fasting glucose) R73.01 Active 3 74688514 Problem Chronic diastolic congestive heart failure I50.32 Active 593479128 Problem First degree atrioventricular block I44.0 Acti ve 455928341 Problem Paroxysmal atrial fibrillation I48.0 Active 2 90186054 Problem Hip osteoarthritis M16.9 Active 464605811 Problem Leukocytosis, unspecified type D72.829 Active 1 08425831 Problem Age related osteoporosis M81.0 Active 9606819 1 Problem Peripheral sensory neuropathy G62.9 Active 23 8955216 Problem Metatarsalgia, right foot M77.41 Active 605997 19223589306 Problem Dysphagia R13.10 Active 37937685 Problem Mixed hyperlipidemia E78.2 Active 273627336 Problem Other cytomegaloviral diseases 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.8 Active 2 8002273 Problem Esophageal dysphagia R13.10 Active 46332336 Problem Osteopenia M85.80 Active 760722204 Problem Ptosis of both eyelids H02.403 Active 22342976 Problem Gastro-esophageal reflux disease without esophagitis K21.9 Active 060735925 Problem Bleeding hemorrhoids K64.9 Active 04286169 Problem Sensory peripheral neuropathy G62.9 Active 26 5240292 Problem Breast cancer screening Z12.39 Active 48556358 8 Problem Perleche K13.0 Active 871026568 Problem Candidiasis of skin B37.2 Active 51310250 ALLERGIES Allergen (clinical drug ingredient) Drug/Non Drug Allergy do cumented on EMR Reaction Allergy Type Onset Date Status macrodantin , paresthesias Non Drug Allergy Act srikanth Sulfa (for allergy use only) Rash, Hives Drug Allergy Active Gabapentin 100 Rash Drug Allergy Active famotidine Pepcid(NDC Code:[address]-41) vomiting Drug Allergy Active Novocain passed out Drug Allergy Active cephalexin Keflex([facility]C Code:[address]-96) Anaphylaxis Drug Allergy Active meloxicam Mobic([facility] Code:[address]-51) Nausea/Vomiting Drug Allergy Active clarithromycin Biaxin dyspepsia Drug Allergy Active Penicillin (For Allergies Use Only) Anaphylaxis Drug Aller gy Active doxycycline Doxycycline Hyclate([facility] Code:[address]-15) N/V Dr alexis Allergy Active antihistamines Rash Non Drug Allergy Acti ve contrast dye can't breathe Non Drug Allergy Act srikanth Levaquin Hives Drug Allergy Active ENCOUNTERS from 1940 to 2020-10-17 Encounter Location Date Provider Diagnosis [address] [address] Sep, Wali Ramsey IMMUNIZATIONS Vaccine Route Administration [...] Education Language: Question Answer Notes Languages spoken: Lao Cheondoism: Question Answer Notes Cheondoism 13 Religion Sexual Hx: Question Answer Notes Had sex [...] % as directed Orally Daily Active Pyridostigmine [place] 60 MG 1 tablet Orally qid for [...] a day for 90 day(s) Active Ergocalciferol 96518 UNIT 1 capsule Orally weekly Active Nystatin 675229 UNIT/GM 1 application Externally TID perianal for [...] Information RESULTS No Results REASON FOR VISIT change date on order MEDICAL (GENERAL) HISTORY Type Description Date Medical [...] 06/2016 Dr. Guillermo mosley Medical History cervical BNI-gzski-jnucp C3- 7, R C5/6 mild NF narrowing [...] - H pylori-Davina 12/2013 Surgical History L EPE-Tewrdrq-JFB 06/29/2016 Surgical History open reduction R hip IT frac ture c cephalomeddullary nail placement-Aiden ([facility]) 10/11/17 Surgical History R THR and removal of intramedullary swapna ce-Dr. Burt Ruiz 11/20/18 Surgical History R distal femur fracture sp mechanical fa ll sp ORIF c plate-[facility] 07/23/21 Hospitalization History R IT hip fracture [...] sp ORIF-[facility], then rehab -10/01/20 Hospitalization History [facility] 10/04- Goals Section No Information Health Concerns [...] a day for 90 da y(s) Pyridostigmine [place] 60 MG 1 tablet Orally qid for 90 day(s) Anusol-HC 2.5 % 1 application Rectal tid for 90 day(s) 20 Apr, 2 020 Quetiapine Fumarate 25 MG 1 tab Orally at bedtime for 90 day(s) Depend Pant Medium 1 ea dx code n32/81 Weight 131 da vinny size M MDD 25 for 30 days Nov, Ergocalciferol 86382 UNIT 1 capsule Orally weekly Tums Ultra 1000 1000 MG 1 tablet Orally bid for 90 day(s) Prolia 60 MG/ML as directed Subcutaneous Metoprolol Tartrate 25 mg 1 tablet with food Orally Twice a day for 90 day(s) Nystatin 175866 UNIT/GM 1 application Externally TID perianal fo r 30 Days Metamucil 48.57 % as directed Orally Daily Esomeprazole Magnesium 40 MG 1 capsule Orally every morning for 30 days Next Appt Details Provider Name:Wali Ramsey, 2020-12-22 0 3:00:00 PM, [address] [place], [address], Insurance Providers Payer Name Payer Address Payer Phone Insured Name Patient Relati onship to Insured Coverage Start Date Coverage End Date MEDICAID [employer] [address] [facility] [id number] COLBY MULLER MEDICARE Part A and B [address] [facility] [address] [phone] COLBY MULLER self
--- OUTSIDE RECORDS SUMMARY | 2020-11-06 11:42 | CCD | Continuity of Care Document ---
Author Author [facility] Address [address] [place] [address] Phone Support Name Relationship Address Phone Wali Ramsey PRS [address] [place] [address] Max Coffey PRS [address] [place] [address] Alexis Spangler PRS [address] [place] [address] Allergies, Adverse Reactions, Alerts No known allergies. Medications No medication information available. Problems No problem information available. Procedures Procedure Date Performed Status Xray Chest One View October 04 10:09am completed Blood Culture October 04, 2020 active Influenza-Like Illness (PCR) October 04, 2020 completed October 04, 2020 com pleted Relevant Diagnostic Tests and/or Laboratory Data Laboratory Results Test Date/Time Result Interpretation Reference Range Result Comment Performing Site White Blood Count October 04, 2020 10:40am 11.5 10e3/uL 4.45-10.71 [facility], [address] [place] [address]76 Red Blood Count October 04, 2020 10:40am 3.61 10e6/uL 4.20-5.40 [facility], [address] [place] [address] 14351 Hemoglobin October 04, 2020 10:40am 10.3 g/dL 10.7-15.4 [facility], [address] [place] [address] 82823 Hematocrit October 04, 2020 10:40am 33.9 % 37-47 [facility], [address] [place] [address] 66915 Mean Corpuscular Volume September 10:40am 93.9 fl 80-96 [facility], [address] [place] [address] 18207 Mean Corpuscular Hemoglobin October 04, 2020 10:40am 28.5 pg 27-31 [facility], [address] [place] [address] 78152 Mean Corpuscular Hemoglobin Concent October 04, 2020 10:40am 30.4 g/dl 33-37 [facility], [address] [place] [address] 11306 Red Cell Distribution Width October 04, 2020 10:40am 15 % 11-15 [facility], [address] [place] [address] 60643 Platelet Count October 04, 2020 10:40am 430 10e3/ul 130-472 [facility], [address] [place], [place] [address] Mean Platelet Volume October 04 10:40am 9.1 fl 9.1-13.1 [facility], [address] [place] [address] 39390 Neutrophils (%) (Auto) October 04, 2020 10:40am 87.0 % 41-77 [facility], [address] [place] [address] 35004 Absolute Neutrophil October 04 10:40am 10.0 # 1.7-7.6 [facility], [address] [place] [address] 07380 Lymphocytes (%) (Auto) October 04, 2020 10:40am 6.8 % 14-46 [facility], [address] [place] [address] 41946 Lymphocytes # (Auto) October 04 10:40am 0.8 # 0.6-4.6 [facility], [address] [place] [address] 05094 Monocytes (%) (Auto) October 04 10:40am 4.5 % 4-12 [facility], [address] [place] [address] 81885 Monocytes # October 04, 2020 10:40am 0.5 # 0.2-1.2 [facility], [address] [place] [address] 16217 Eosinophils (%) (Auto) October 04, 2020 10:40am 0.1 % 0-7 [facility], [address] [place] [address] 84407 Absolute Eosinophils (CBC) September 192020 10:40am 0.0 # 0.0-0.5 [facility], [address] [place] [address] 02682 Basophils (%) (Auto) October 04 10:40am 0.3 % 0.4-1.3 [facility], [address] [place] [address] 60581 Absolute Basophils (CBC) September 10:40am 0.0 # 0.0-0.2 [facility], [address] [place] [address] 78521 Immature Granulocyte % (Auto) Sepuar y 2020 10:40am 1.3 % 0-2 [facility], [address] [place] [address] 20213 Absolute Immature Granulocyte (auto October 04, 2020 10:40am 0.2 # 0-0.1 [facility], [address] [place] [address] 76220 Add Manual Differential September 10:40am Manual diff added [facility], [address] [place] [address] 12031 Differential Total Cells Counted Jose A uary 2020 10:40am 100 [facility], [address] [place] [address] 63216 Neutrophils (Manual) October 04 10:40am 83 % 41-77 [facility], [address] [place] [address] 24674 Band Neutrophils October 04, 2020 10:40a m 2 % 0-5 [facility], [address] [place] [address] 05236 Lymphocytes (Manual) October 04 10:40am 10 % 14-46 [facility], [address] [place] [address] 49175 Monocytes (Manual) October 04 10:40am 4 % 4-12 [facility], [address] [place] [address] 40720 Eosinophils (Manual) October 04 10:40am 1 % 0-7 [facility], [address] [place] [address] 38008 Platelet Estimate October 04, 2020 10:40am Appears normal NORMAL [facility], [address] [place] [address] 88467 RBC Morphology 2 October 04, 2020 10:40a m Appears normal NORMAL [facility], [address] [place] [address] 99924 Prothrombin Time October 04, 2020 10:40a m 11.4 SECONDS 9.6-12.3 [facility], [address] [place] [address] 59252 INR International Normalized Ratio J anuary 2020 10:40am 1.1 0.9-1.1 THE INR IS OPERATIONALLY DEFINED FOR EMERSON SH PLASMA FROMPATIENTS STABILIZED ON ORAL ANTICOAGULANTS. ROUTINE ANTICOAGULANT THERAPY 2.0-3.0RECURRENT SYSTEMIC EMBOLISM/HEART VALVE REPLACEMENT 2.5-3.5 [facility], [address] [place] [address] 77954 Partial Thromboplastin Time - Arabella Zabala [facility] 2020 10:40am 25.5 SECONDS 22.7-31.6 [facility], [address] [place] [address] 77310 Blood Urea Nitrogen October 04 10:40am 10 mg/dL 9-23 [facility], [address] [place] [address] 58565 Sodium Level October 04, 2020 10:40am 137 mmol/L 132-146 [facility], [address] [place] [address] 17715 Potassium Level October 04, 2020 10:40am 3.4 mmol/L 3.5-5.5 [facility], [address] [place] [address] 30826 Chloride Level October 04, 2020 10:40am 104 mmol/l 99-109 [facility], [address] [place] [address] 63258 Carbon Dioxide Level October 04, 021 10:40am 25 mmol/l 20-31 [facility], [address] [place] [address] 18405 Anion Gap October 04, 2020 10:40am 11 mmol/l 8-16 [facility], [address] [place] [address] 60236 Glucose Level October 04, 2020 10:40am 100 mg/dL 74-106 [facility], [address] [place] [address] 50627 Creatinine October 04, 2020 10:40am 0.8 mg/dL 0.5-1.1 [facility], [address] [place] [address] 25661 Glomerular Filtration Rate Deepak ferrell 2020 10:40am Greater than 60 ml/min ABOVE 60 [facility], [address] [place] [address] 46895 Alanine Aminotransferase (ALT/SGPT) October 04, 2020 10:40am 16 U/L 10-49 [facility], [address] [place] [address] 51270 Aspartate Amino Transf (AST/SGOT) Jose Raul estevez 2020 10:40am 9 U/L 0-33 [facility], [address] [place] [address] Alkaline Phosphatase October 04 021 10:40am 55 U/L 45-129 [facility], [address] [place] [address] Calcium Level October 04, 2020 10:40am 7.7 mg/dL 8.5-10.1 [facility], [address] [place] [address] Total Bilirubin October 04, 2020 10:40am 0.3 mg/dL 0.3-1.2 [facility], [address] [place] [address] Albumin October 04, 2020 10:40am 2.5 g/dL 3.2-4.8 [facility], [address] [place] [address] Serum Total Protein October 04 10:40am 5.5 g/dL 5.7-8.2 [facility], [address] [place] [address] Lactic Acid Level October 04, 2020 12:40pm 2.0 mmol/L 0.5-2.2 [facility], [address] [place] [address] Troponin I October 04, 2020 10:40am Less than 0.015 ng/mL 0.00-0.09 Less than 0.09 NG/ML Negative0.10 - 0.77 NG/ML High Risk0.78 NG/ML or Greater Positive The WHO defined the cutoff (definition for diagnosis of AL)for this method as 0.78 ng/ml. [facility], [address] [place] [address] Microbiology Results Procedure Source Result Collection Date/Time Result Date/Time Result Comment Performing Site Influenza-Like Illness (PCR) Nasopharyngea l No Organisms Detected October 04, 2020 10:45am October 04, 2020 11:17am [facility], [address] [place], [place] [address] Nasopharyngeal October 04, 2020 10:45am October 04, 2020 11:17am [facility], [address] [place] [address] Health Concerns Health Concerns may be documented in an alternate section. Advance Directives Advance Directive Response Recorded Date/Time Advanced Directive No Jose Raul estevez 16th, 2021 11:22am Does Patient have a DNR? No October 04, 2020 11:22am Healthcare Proxy No Louis mariaelena 2020 11:22am Living Will No November 02, 2017 6:13pm Chief Complaint and Reason for Visit Chief Complaint PNEUMONIA Encounters Encounter Location(s) Ar rival/Admit Date Discharge/Depart Date Provider(s) Admitted Inpatient [facility] October 04, 2020 12:07pm lAexis Spangler MD Assessments No Assessments Information Available Functional Status No Functional Status information available Goals Goals may be documented in an alternate section. Immunizations No Immunization Information Available Mental Status Observation Response Ignacio e Recorded Impairments Mental/Cognitive October 04, 2020 9:58am Medical Equipment No Medical Equipment Information available Insurance Providers Guarantor Colby wDyerlivan Address [address] [place] [address] Contact Info. Home Phone: Payer Policy Id Coverage Id Subscriber's Name Subscriber Id Effective Date Expiration Date MEDICARE [employer] [id number] COLBY LITTLE [id number] MEDICAID [place] [id number] COLBY LITTLE [id number] MEDICAID [id number] COLBY LITTLE [id number] MEDICARE [id number] COLBY LITTLE [id number] Self Pay Self N/A Social History Smoking Status Status Date of Observation Unknown if ever smoked October 04, 2020 11:22am Observation Status Observation Response Ignacio e of Response Smoking Status Unknown if ever smoked October 04, 2020 11:22am Assigned Sex Female Vital Signs Vital Reading Result Ref erence Range Collection Date/Time Height 64 [in_i] October 04, 2020 11:22am Weight 135.00 [lb_av] October 04, 2020 11:22am Body Temperature 102.2 [degF] 97.6-99.5 October 04, 2020 9:58am Heart Rate 72 /min 60-100 October 04, 2020 9:58am Respiratory rate 16 /min 12-24 October 04, 2020 9:58am Oxygen saturation by Pulse oximetry 98 % 95- 100 Brandie 16th, 2021 9:58am BP Systolic 104 mm[Hg] October 04, 2020 9:58am BP Diastolic 54 mm[Hg] October 04, 2020 9:58am
--- OUTSIDE RECORDS SUMMARY | 2020-11-06 11:42 | CCD ---
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 Active 769937826 Problem Overactive bladder N32.81 Active 856379976 Problem Post-traumatic osteoarthritis of left hand M19.142 Active 520812602 Problem Hand pain, left M79.642 Active 852751927437205 Problem 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 Active 53780234 Problem Closed fracture of right hip with routin e healing, subsequent encounter S72.001D Active 298005585 Problem Constipation, chronic K59.09 Active 812324086 Problem Impingement syndrome of right shoulder M75.41 A ctive 970368872 Problem Hallucination R44.3 Active 1825312 Problem Sensorineural hearing loss (SNHL) of both ears H90 .3 Active 636233300 Problem Raynaud's phenomenon (secondary) I73.00 Active 844241730 Problem H/O TIA (transient ischemic attack) and stroke Z86 .73 Active 494747954 Problem Recurrent sinusitis J32.9 Active 089976206 Problem Myasthenia gravis G70.00 Active 71028448 Problem Muscle spasticity M62.838 Active 641957698 Problem DJD (degenerative joint disease), cervical M50.30 Active 53362299 Problem Primary osteoarthritis of both knees M17.0 Act srikanth 540003702 Problem Vitamin D deficiency E55.9 Active 08653953 Problem Bilateral hearing loss, unspecified hearing loss type H91.93 Active 08823914 Problem Trochanteric bursitis of both hips M70.61 Activ e 6806078 Problem Non-seasonal allergic rhinitis, unspecified trigger J30.89 Active 20645764 Problem IFG (impaired fasting glucose) R73.01 Active 3 79324338 Problem Chronic diastolic congestive heart failure I50.32 Active 478020254 Problem First degree atrioventricular block I44.0 Acti ve 387826087 Problem Paroxysmal atrial fibrillation I48.0 Active 2 49594970 Problem Hip osteoarthritis M16.9 Active 470551849 Problem Leukocytosis, unspecified type D72.829 Active 1 96056438 Problem Age related osteoporosis M81.0 Active 8365205 1 Problem Peripheral sensory neuropathy G62.9 Active 23 9129219 Problem Metatarsalgia, right foot M77.41 Active 441562 96351167299 Problem Dysphagia R13.10 Active 45295201 Problem Mixed hyperlipidemia E78.2 Active 529563160 Problem Other cytomegaloviral diseases B25.8 Active 2 1155765 Problem Esophageal dysphagia R13.10 Active 91744474 Problem Osteopenia M85.80 Active 487115924 Problem Ptosis of both eyelids H02.403 Active 76527627 Problem Gastro-esophageal reflux disease without esophagitis K21.9 Active 776152311 Problem Bleeding hemorrhoids K64.9 Active 15970629 Problem Sensory peripheral neuropathy G62.9 Active 26 2145770 Problem Breast cancer screening Z12.39 Active 73729070 8 Problem Perleche K13.0 Active 170240063 Problem Candidiasis of skin B37.2 Active 34134057 ALLERGIES Allergen (clinical drug ingredient) Drug/Non Drug Allergy do cumented on EMR Reaction Allergy Type Onset Date Status macrodantin , paresthesias Non Drug Allergy Act srikanth Sulfa (for allergy use only) Rash, Hives Drug Allergy Active Gabapentin 100 Rash Drug Allergy Active famotidine Pepcid(NDC Code:[address]-22) vomiting Drug Allergy Active Novocain passed out Drug Allergy Active cephalexin Keflex(NDC Code:[address]-07) Anaphylaxis Drug Allergy Active meloxicam Mobic(NDC Code:[address]-37) Nausea/Vomiting Drug Allergy Active clarithromycin Biaxin dyspepsia Drug Allergy Active Penicillin (For Allergies Use Only) Anaphylaxis Drug Aller gy Active doxycycline Doxycycline Hyclate([facility] Code:[address]-23) N/V Dr alexis Allergy Active antihistamines Rash Non Drug Allergy Acti ve contrast dye can't breathe Non Drug Allergy Act srikanth Levaquin Hives Drug Allergy Active ENCOUNTERS from 1938 to 2020-10-03 Encounter Location Date Provider Diagnosis [address] [place] [address] Sep, Wali Ramsey IMMUNIZATIONS Vaccine Route Administration [...] Education Language: Question Answer Notes Languages spoken: Greenlandic Shinto: Question Answer Notes Shinto 13 Catholic Sexual Hx: Question Answer Notes Had sex [...] food Orally Twice a day Active Ergocalciferol 93697 UNIT 1 capsule Orally weekly Active Prolia 60 MG/ML as directed Subcutaneous Active Furosemide 40 MG 1 tablet Orally every morning for 90 day(s) Active Tums Ultra 1000 1000 MG 1 tablet Orally bid for 90 day(s) Active Nystatin 070430 UNIT/GM 1 application Externally TID perianal for [...] Orally bid for 90 day(s) Active Pyridostigmine Purdys 60 MG 1 tablet Orally qid Active Anusol-HC 2.5 % 1 application Rectal Twice a day for 30 day(s) Dec, Active PROCEDURES No Information RESULTS No Results REASON FOR VISIT medication Tums MEDICAL (GENERAL) HISTORY Type Description Date Medical [...] 06/2016 Dr. Guillermo mosley Medical History cervical UFF-tjrqk-qtpbq C3- 7, R C5/6 mild NF narrowing [...] fibrillation, paroxys mal-new onset 01/2019-normal TTE (LA 30)-Ayleenka 01/2019 Medical History L distal radius, ulna [...] hemorrhoids-[facility] 07/2006 Surgical History R rotator cuff repair-[facility] 06/2012 Surgical History EGD/colonoscopy-grade II int ernal hemorrhoids, bile gastritis- mild chronic gastritis, - H pylori-[facility] 12/2013 Surgical History L UCL-Lijoidm-[facility] 06/29/2016 Surgical History open reduction R hip [...] Name Sig Start Date Stop Date Nystatin 617912 UNIT/GM 1 application Externally TID perianal fo [...] B knees for 30 day (s) Ergocalciferol 39873 UNIT 1 capsule Orally weekly Aspirin EC 81 MG 1 tablet by mouth Once a day Pyridostigmine Purdys 60 MG 1 tablet Orally qid Fluticasone Propionate 50 MCG/ACT 2 sprays each nostri l qam Nasally every morning for 90 day(s) Metamucil 48.57 % as directed Orally Daily Mycophenolate Mofetil 250 MG 2 capsules Orally bid PredniSONE 20 MG 1 tablet Orally Once a day Metoprolol Tartrate 25 MG 1 tablet with food Orally Twice a day Next Appt Details Provider Name:Wali Nunezer, 2020-10-17 0 2:00:00 PM, [address] [place] [address], [phone], Insurance Providers Payer Name Payer Address Payer Phone Insured Name Patient Relati onship to Insured Coverage Start Date Coverage End Date MEDICAID Money Forward [address] [facility] [address] COLBY MULLER MEDICARE Part A and B [address] [facility] [address] COLBY MULELR
--- OUTSIDE RECORDS SUMMARY | 2020-11-06 11:42 | CCD | Continuity of Care Document ---
Author Author Jacqui EPPS MD Organization Unknown Address [address] [place] [address], [address] [address] Phone [phone] Care Team Providers Care Content Development Specialist Name Role Phone Wali Ramsey MD AUTM [phone] Wagner Kirkpatrick MD AUTM Unavailable Problems Active [...] Twice A Day 20tabs Unknown 02/08/2019 Pyridostigmine Daykin 60mg Tablet s Four Times Daily 40tabs [...] 1 by mouth every day Unknown Drisdol [id number] Capsules take 1 tab by mouth once [...] Information Available Procedures Date Code Description Status 09/15/2020 48152 X-Ray Femur Minimum 2 Views Comp leted 08/21/2020 64694 X-Ray Femur Minimum 2 Views Comp leted 07/23/2020 88627 FX Femur Shaft W/Plate/Screws Co mpleted 07/23/2020 23245 FX Femur Shaft W/Plate/Screws Co mpleted Medical Devices Description No Information Available Encounters Type Date Location Provider Dx Diagnosis Office Visit 07/23/2020 3:44p [place] Petr Epps MD S7 2.331A Displaced oblique fracture of shaft of right femur, init Assessments Date Code Description Provider 09/15/2020 S72.331D Displaced oblique fr acture of shaft of right femur, subsequent encounter for closed fracture with routine healing Petr Epps MD 08/21/2020 S72.331D Displaced oblique fr acture of shaft of right femur, subsequent encounter for closed fracture with routine healing Petr Epps MD 07/23/2020 S72.331A Displaced oblique fr acture of shaft of right femur, initial encounter for closed fracture Silvestre eBrtrand MD 07/23/2020 S72.331A Displaced oblique fr acture of shaft of right femur, initial encounter for closed fracture Petr Epps MD Plan of Treatment Future Appointment(s):* 10/06/2020 10:45 am - Petr Epps MD at [place] 09/15/2020 - Petr Epps MD* S72.331D Displaced oblique fracture of shaft of right femur, subsequent encounter for closed fracture with routine healing* Follow up:* in 3 weeks with DPV with xrays Functional Status Description No Information Available Mental Status Description No Information Available Referrals Description No Information Available
--- OUTSIDE RECORDS SUMMARY | 2020-11-06 11:42 | CCD | Continuity of Care Document ---
Author Author Jacqui EPPS MD Organization Unknown Address [address] [place] [address], [address] [address] Phone [phone] Care Team Providers Care Research And Development Manager Name Role Phone Wali Ramsey MD AUTM [phone] Wagner Kirkpatrick MD AUTM Unavailable Problems Active [...] Twice A Day 20tabs Unknown 02/08/2019 Pyridostigmine [place] 60mg Tablet s Four Times Daily 40tabs [...] 1 by mouth every day Unknown Drisdol [id number] Capsules take 1 tab by mouth once [...] Available Procedures Date Code Description Status 09/15/2020 88944 X-Ray Femur Minimum 2 Views Comp leted 08/21/2020 15658 X-Ray Femur Minimum 2 Views Comp leted 07/23/2020 62750 FX Femur Shaft W/Plate/Screws Co mpleted 07/23/2020 28627 FX Femur Shaft W/Plate/Screws Co mpleted 03/25/2020 12221 X-Ray Wrist Ap & Lateral 2 Views Completed Medical Devices Description No Information Available Encounters Type Date Location Provider Dx Diagnosis Office Visit 07/23/2020 3:44p [facility] Vistakavita Epps MD S7 2.331A Displaced oblique fracture of shaft of right femur, init Office Visit 03/25/2020 10:30a Bella Vistakavita Bertrand MD S52. 512D Disp fx of l radial styloid pro, 7thD S52.612D Disp fx of l ulna styloid pr o, subs for clos fx w routn heal M25.532 Pain in left wrist Assessments Date Code Description Provider 09/15/2020 S72.331D [...] encounter for closed fracture Petr Epps MD 03/25/2020 S52.512D Displaced fracture o f left radial styloid process, subsequent encounter for closed fracture with routine healing Silvestre Bertrand MD 03/25/2020 S52.612D Displaced fracture o f left ulna styloid process, subsequent encounter for closed fracture with routine healing Silvestre Bertrand MD 03/25/2020 M25.532 Pain in left wrist Silvestre davis MD Plan of Treatment Future Appointment(s):* 10/06/2020 10:45 am - Petr Epps MD at [place] 09/15/2020 - Petr Epps MD* S72.331D Displaced oblique fracture of shaft of right femur, subsequent encounter for closed fracture with routine healing* Follow up:* in 3 weeks with DPV with xrays Functional Status Description No Information Available Mental Status Description No Information Available Referrals Description No Information Available
--- OUTSIDE RECORDS SUMMARY | 2020-11-06 11:42 | CCD ---
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 Active 813485058 Problem Overactive bladder N32.81 Active 949645700 Problem Post-traumatic osteoarthritis of left hand M19.142 Active 021572207 Problem Hand pain, left M79.642 Active 112717232857164 Problem 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 Active 43315460 Problem Closed fracture of right hip with routin e healing, subsequent encounter S72.001D Active 049944664 Problem Constipation, chronic K59.09 Active 868764500 Problem Impingement syndrome of right shoulder M75.41 A ctive 412333772 Problem Hallucination R44.3 Active 0308523 Problem Sensorineural hearing loss (SNHL) of both ears H90 .3 Active 679148415 Problem Raynaud's phenomenon (secondary) I73.00 Active 423079652 Problem H/O TIA (transient ischemic attack) and stroke Z86 .73 Active 735704242 Problem Recurrent sinusitis J32.9 Active 930450412 Problem Myasthenia gravis G70.00 Active 48323896 Problem Muscle spasticity M62.838 Active 362197197 Problem DJD (degenerative joint disease), cervical M50.30 Active 78788086 Problem Primary osteoarthritis of both knees M17.0 Act srikanth 694152123 Problem Vitamin D deficiency E55.9 Active 51609305 Problem Bilateral hearing loss, unspecified hearing loss type H91.93 Active 51266600 Problem Trochanteric bursitis of both hips M70.61 Activ e 4866208 Problem Non-seasonal allergic rhinitis, unspecified trigger J30.89 Active 42248708 Problem IFG (impaired fasting glucose) R73.01 Active 3 80676527 Problem Chronic diastolic congestive heart failure I50.32 Active 982544533 Problem First degree atrioventricular block I44.0 Acti ve 465994090 Problem Paroxysmal atrial fibrillation I48.0 Active 2 45197894 Problem Hip osteoarthritis M16.9 Active 358236147 Problem Leukocytosis, unspecified type D72.829 Active 1 71085490 Problem Age related osteoporosis M81.0 Active 0566312 1 Problem Peripheral sensory neuropathy G62.9 Active 23 1250684 Problem Metatarsalgia, right foot M77.41 Active 378353 40492197527 Problem Dysphagia R13.10 Active 83919331 Problem Mixed hyperlipidemia E78.2 Active 231158374 Problem Other cytomegaloviral diseases B25.8 Active 2 9959605 Problem Esophageal dysphagia R13.10 Active 96359312 Problem Osteopenia M85.80 Active 356262465 Problem Ptosis of both eyelids H02.403 Active 74676025 Problem Gastro-esophageal reflux disease without esophagitis K21.9 Active 726682112 Problem Bleeding hemorrhoids K64.9 Active 56275858 Problem Sensory peripheral neuropathy G62.9 Active 26 6277546 Problem Breast cancer screening Z12.39 Active 67826588 8 Problem Perleche K13.0 Active 497240682 Problem Candidiasis of skin B37.2 Active 13956493 ALLERGIES Allergen (clinical drug ingredient) Drug/Non Drug Allergy do cumented on EMR Reaction Allergy Type Onset Date Status macrodantin , paresthesias Non Drug Allergy Act srikanth Sulfa (for allergy use only) Rash, Hives Drug Allergy Active Gabapentin 100 Rash Drug Allergy Active famotidine Pepcid([facility] Code:[address]-36) vomiting Drug Allergy Active Novocain passed out Drug Allergy Active cephalexin Keflex([facility]C Code:[address]-85) Anaphylaxis Drug Allergy Active meloxicam Mobic([facility] Code:[address]-02) Nausea/Vomiting Drug Allergy Active clarithromycin Biaxin dyspepsia Drug Allergy Active Penicillin (For Allergies Use Only) Anaphylaxis Drug Aller gy Active doxycycline Doxycycline Hyclate([facility] Code:[address]-23) N/V Dr alexis Allergy Active antihistamines Rash Non Drug Allergy Acti ve contrast dye can't breathe Non Drug Allergy Act srikanth Levaquin Hives Drug Allergy Active ENCOUNTERS from 1938 to 2020-09-05 Encounter Location Date Provider Diagnosis [address] [address] Aug, 020 Wali Ramsey IMMUNIZATIONS Vaccine Route Administration Date [...] Education Language: Question Answer Notes Languages spoken: Persian Oriental Orthodox: Question Answer Notes Oriental Orthodox 13 Yazidi Sexual Hx: Question Answer Notes Had sex [...] food Orally Twice a day Active Ergocalciferol 65182 UNIT 1 capsule Orally weekly Active Prolia 60 MG/ML as directed Subcutaneous Active Furosemide 40 MG 1 tablet Orally every morning for 90 day(s) Active Tums Ultra 1000 1000 MG 1 tablet Orally bid for 90 day(s) Active Nystatin 057969 UNIT/GM 1 application Externally TID perianal for [...] Orally bid for 90 day(s) Active Pyridostigmine Crozier 60 MG 1 tablet Orally qid Active Anusol-HC 2.5 % 1 application Rectal Twice a day for 30 day(s) Dec, Active PROCEDURES No Information RESULTS No Results REASON FOR VISIT covid 19 vaccine MEDICAL (GENERAL) HISTORY Type Description Date Medical [...] 06/2016 Dr. Guillermo mosley Medical History cervical ABC-obiih-ejnxc C3- 7, R C5/6 mild NF narrowing [...] - H pylori-Davina 12/2013 Surgical History L [id number] 06/29/2016 Surgical History open reduction R hip [...] Name Sig Start Date Stop Date Nystatin 654118 UNIT/GM 1 application Externally TID perianal fo [...] B knees for 30 day (s) Ergocalciferol 20125 UNIT 1 capsule Orally weekly Aspirin EC 81 MG 1 tablet by mouth Once a day Pyridostigmine Crozier 60 MG 1 tablet Orally qid Fluticasone Propionate 50 MCG/ACT 2 sprays each nostri l qam Nasally every morning for 90 day(s) Metamucil 48.57 % as directed Orally Daily Mycophenolate Mofetil 250 MG 2 capsules Orally bid PredniSONE 20 MG 1 tablet Orally Once a day Metoprolol Tartrate 25 MG 1 tablet with food Orally Twice a day Insurance Providers Payer Name Payer Address Payer Phone Insured Name Patient Relati onship to Insured Coverage Start Date Coverage End Date MEDICARE Part A and B [address] [facility] [id number] [phone] [employer] MEDICAID [place] [address] [facility] [id number] COLBY MULLER Y judy
--- OUTSIDE RECORDS SUMMARY | 2020-11-06 11:43 | CCD ---
Author Author [facility] Organization [facility] Address Unknown Phone Unavailable Care Team Providers Care Senior Accounting Specialist Name Role Phone WILLIAM, H KENJI FURNACE CHARGING MACHINE OPERATOR Unavailable Unavailable WILLIAM, H KENJI FURNACE CHARGING MACHINE OPERATOR Unavailable Unavailable WILLIAM, H KENJI FURNACE CHARGING MACHINE OPERATOR Unavailable Unavailable WILLIAM, H KENJI FURNACE CHARGING MACHINE OPERATOR Unavailable Unavailable WILLIAM, H KENJI FURNACE CHARGING MACHINE OPERATOR Unavailable Unavailable WILLIAM, H KENJI FURNACE CHARGING MACHINE OPERATOR Unavailable Unavailable WILLIAM, H KENJI FURNACE CHARGING MACHINE OPERATOR Unavailable Unavailable WILLIAM, H KENJI FURNACE CHARGING MACHINE OPERATOR Unavailable Unavailable WILLIAM, H KENJI FURNACE CHARGING MACHINE OPERATOR Unavailable Unavailable WILLIAM, H KENJI FURNACE CHARGING MACHINE OPERATOR Unavailable Unavailable WILLIAM, H KENJI FURNACE CHARGING MACHINE OPERATOR Unavailable Unavailable WILLIAM, H KENJI FURNACE CHARGING MACHINE OPERATOR Unavailable Unavailable WILLIAM, H KENJI FURNACE CHARGING MACHINE OPERATOR Unavailable Unavailable WILLIAM, H KENJI FURNACE CHARGING MACHINE OPERATOR Unavailable Unavailable WILLIAM, H KENJI FURNACE CHARGING MACHINE OPERATOR Unavailable Unavailable WILLIAM, H KENJI FURNACE CHARGING MACHINE OPERATOR Unavailable Unavailable WILLIAM, H KENJI FURNACE CHARGING MACHINE OPERATOR Unavailable Unavailable WILLIAM, H KENJI FURNACE CHARGING MACHINE OPERATOR Unavailable Unavailable WILLIAM, H KENJI FURNACE CHARGING MACHINE OPERATOR Unavailable Unavailable WILLIAM, H KENJI FURNACE CHARGING MACHINE OPERATOR Unavailable Unavailable WILLIAM, H KENJI FURNACE CHARGING MACHINE OPERATOR Unavailable Unavailable WILLIAM, H KENJI FURNACE CHARGING MACHINE OPERATOR Unavailable Unavailable WILLIAM, H KENJI FURNACE CHARGING MACHINE OPERATOR Unavailable Unavailable WILLIAM, H KENJI FURNACE CHARGING MACHINE OPERATOR Unavailable Unavailable WILLIAM, H KENJI FURNACE CHARGING MACHINE OPERATOR Unavailable Unavailable WILLIAM, H KENJI FURNACE CHARGING MACHINE OPERATOR Unavailable Unavailable WILLIAM, H KENJI FURNACE CHARGING MACHINE OPERATOR Unavailable Unavailable WILLIAM, H KENJI FURNACE CHARGING MACHINE OPERATOR Unavailable Unavailable WILLIAM, H KENJI FURNACE CHARGING MACHINE OPERATOR Unavailable Unavailable WILLIAM, H KENJI FURNACE CHARGING MACHINE OPERATOR Unavailable Unavailable WILLIAM, H KENJI FURNACE CHARGING MACHINE OPERATOR Unavailable Unavailable WILLIAM, H KENJI FURNACE CHARGING MACHINE OPERATOR Unavailable Unavailable WILLIAM, H KENJI FURNACE CHARGING MACHINE OPERATOR Unavailable Unavailable WILLIAM, H KENJI FURNACE CHARGING MACHINE OPERATOR Unavailable Unavailable WILLIAM, H KENJI FURNACE CHARGING MACHINE OPERATOR Unavailable Unavailable WILLIAM, H KENJI FURNACE CHARGING MACHINE OPERATOR Unavailable Unavailable WILLIAM, H KENJI FURNACE CHARGING MACHINE OPERATOR Unavailable Unavailable WILLIAM, H KENJI FURNACE CHARGING MACHINE OPERATOR Unavailable Unavailable WILLIAM, H KENJI FURNACE CHARGING MACHINE OPERATOR Unavailable Unavailable WILLIAM, H KENJI FURNACE CHARGING MACHINE OPERATOR Unavailable Unavailable WILLIAM, H KENJI FURNACE CHARGING MACHINE OPERATOR Unavailable Unavailable WILLIAM, H KENJI FURNACE CHARGING MACHINE OPERATOR Unavailable Unavailable WILLIAM, H KENJI FURNACE CHARGING MACHINE OPERATOR Unavailable Unavailable WILLIAM, H KENJI FURNACE CHARGING MACHINE OPERATOR Unavailable Unavailable WILLIAM, H KENJI FURNACE CHARGING MACHINE OPERATOR Unavailable Unavailable WILLIAM, H KENJI FURNACE CHARGING MACHINE OPERATOR Unavailable Unavailable WILLIAM, H KENJI FURNACE CHARGING MACHINE OPERATOR Unavailable Unavailable WILLIAM, H KENJI FURNACE CHARGING MACHINE OPERATOR Unavailable Unavailable WILLIAM, H KENJI FURNACE CHARGING MACHINE OPERATOR Unavailable Unavailable WILLIAM, H KENJI FURNACE CHARGING MACHINE OPERATOR Unavailable Unavailable WILLIAM, H KENJI FURNACE CHARGING MACHINE OPERATOR Unavailable Unavailable WILLIAM, H KENJI FURNACE CHARGING MACHINE OPERATOR Unavailable Unavailable WILLIAM, H KENJI FURNACE CHARGING MACHINE OPERATOR Unavailable Unavailable WILLIAM, H KENJI FURNACE CHARGING MACHINE OPERATOR Unavailable Unavailable WILLIAM, H KENJI FURNACE CHARGING MACHINE OPERATOR Unavailable Unavailable BraulioClaire wong MD Unavailable Unavailable BraulioClaire wong MD Unavailable Unavailable BraulioClaire wong MD Unavailable Unavailable BraulioClaire wong MD Unavailable Unavailable BraulioClaire wong MD Unavailable Unavailable BraulioClaire wong MD Unavailable Unavailable BraulioClaire wong MD Unavailable Unavailable BraulioClaire wong MD Unavailable Unavailable BraulioClaire wong MD Unavailable Unavailable BraulioClaire wong MD Unavailable Unavailable BraulioClaire wong MD Unavailable Unavailable BraulioClaire wong MD Unavailable Unavailable BraulioClaire wong MD Unavailable Unavailable BraulioClaire wong MD Unavailable Unavailable BraulioClaire wong MD Unavailable Unavailable BraulioClaire wong MD Unavailable Unavailable BraulioClaire wong MD Unavailable Unavailable BraulioClaire wong MD Unavailable Unavailable BraulioClaire wong MD Unavailable Unavailable BraulioClaire wong MD Unavailable Unavailable BraulioClaire wong MD Unavailable Unavailable BraulioClaire wong MD Unavailable Unavailable BraulioClaire wong MD Unavailable Unavailable BraulioClaire wong MD Unavailable Unavailable BraulioClaire wong MD Unavailable Unavailable BraulioClaire wong MD Unavailable Unavailable BraulioClaire wong MD Unavailable Unavailable BraulioClaire wong MD Unavailable Unavailable Claire Ramsey MD Unavailable Unavailable BraulioClaire wong MD Unavailable Unavailable BraulioClaire wong MD Unavailable Unavailable BraulioClaire wong MD Unavailable Unavailable BraulioClaire wong MD Unavailable Unavailable BraulioClaire wong MD Unavailable Unavailable BraulioClaire wong MD Unavailable Unavailable BraulioClaire wong MD Unavailable Unavailable BraulioClaire wong MD Unavailable Unavailable BraulioClaire wong MD Unavailable Unavailable BraulioClaire wong MD Unavailable Unavailable BraulioClaire wong MD Unavailable Unavailable Braulio, E Wali MD Unavailable Unavailable Claire Ramsey MD Unavailable Unavailable Claire Ramsey MD Unavailable Unavailable Claire Ramsey MD Unavailable Unavailable Claire Ramsey MD Unavailable Unavailable Claire Ramsey MD Unavailable Unavailable Claire Ramsey MD Unavailable Unavailable Claire Ramsey MD Unavailable Unavailable Claire Ramsey MD Unavailable Unavailable Claire Ramsey MD Unavailable Unavailable Claire Ramsey MD Unavailable Unavailable Claire Ramsey MD Unavailable Unavailable Claire Ramsey MD Unavailable Unavailable Claire Ramsey MD Unavailable Unavailable Claire Ramsey MD Unavailable Unavailable Claire Ramsey MD Unavailable Unavailable Claire Ramsey MD Unavailable Unavailable Dipti Mejia MD Unavailable Unavailable Dipti Mejia MD Unavailable Unavailable Dipti Mejia MD Unavailable Unavailable Dipti Mejia MD Unavailable Unavailable Dipti Mejia MD Unavailable Unavailable Dipti Mejia MD Unavailable Unavailable Dipti Mejia MD Unavailable Unavailable Dipti Mejia MD Unavailable Unavailable Dipti Mejia MD Unavailable Unavailable Dipti Mejia MD Unavailable Unavailable Dipti Mejia MD Unavailable Unavailable Dipti Mejia MD Unavailable Unavailable Dipti Mejia MD Unavailable Unavailable Dipti Mejia MD Unavailable Unavailable Dipti Mejia MD Unavailable Unavailable Dipti Mejia MD Unavailable Unavailable Dipti Mejia MD Unavailable Unavailable Dipti Mejia MD Unavailable Unavailable Dipti Mejia MD Unavailable Unavailable Dipti Mejia MD Unavailable Unavailable Dipti Mejia MD Unavailable Unavailable Dipti Mejia MD Unavailable Unavailable Dipti Mejia MD Unavailable Unavailable Dipti Mejia MD Unavailable Unavailable Dipti Mejia MD Unavailable Unavailable Dipti Mejia MD Unavailable Unavailable Dipti Mejia MD Unavailable Unavailable Dipti Mejia MD Unavailable Unavailable Dipti Mejia MD Unavailable Unavailable Dipti Mejia MD Unavailable Unavailable Dipti Mejia MD Unavailable Unavailable Dipti Mejia MD Unavailable Unavailable Dipti Mejia MD Unavailable Unavailable Dipti Mejia MD Unavailable Unavailable Dipti Mejia MD Unavailable Unavailable Dipti Mejia MD Unavailable Unavailable Dipti Mejia MD Unavailable Unavailable Dipti Mejia MD Unavailable Unavailable Dipti Mejia MD Unavailable Unavailable Dipti Mejia MD Unavailable Unavailable Dipti Mejia MD Unavailable Unavailable Dipti Mejia MD Unavailable Unavailable Dipti Mejia MD Unavailable Unavailable Dipti Mejia MD Unavailable Unavailable Dipti Mejia MD Unavailable Unavailable Dipti Mejia MD Unavailable Unavailable Dipti Mejia MD Unavailable Unavailable Dipti Mejia MD Unavailable Unavailable Dipti Mejia MD Unavailable Unavailable Dipti Mejia MD Unavailable Unavailable Dipti Mejia MD Unavailable Unavailable Dipti Mejia MD Unavailable Unavailable Dipti Mejia MD Unavailable Unavailable Dipti Mejia MD Unavailable Unavailable iDpti Mejia MD Unavailable Unavailable Dipti Mejia MD Unavailable Unavailable Dipti Mejia MD Unavailable Unavailable Dipti Mejia MD Unavailable Unavailable Dipti Mejia MD Unavailable Unavailable Dipti Mejia MD Unavailable Unavailable Dipti Mejia MD Unavailable Unavailable Dipti Mejia MD Unavailable Unavailable Dipti Mejia MD Unavailable Unavailable Dipti Mejia MD Unavailable Unavailable Dipti Mejia MD Unavailable Unavailable Dipti Mejia MD Unavailable Unavailable Dipti Mejia MD Unavailable Unavailable Dipti Mejia MD Unavailable Unavailable Dipti Mejia MD Unavailable Unavailable Dipti Mejia MD Unavailable Unavailable Dipti Mejia MD Unavailable Unavailable Dipti Mejia MD Unavailable Unavailable Dipti Mejia MD Unavailable Unavailable Dipti Mejia MD Unavailable Unavailable Dipti Mejia MD Unavailable Unavailable Roberto O Sami BHARDWAJ Unavailable Unavailable Max Coffey MD Unavailable Unavailable Chela Epps MD Unavailable Unavailable Chela Epps MD Unavailable Unavailable Vaneenenaam, Chela Reno MD Unavailable Unavailable Vaneenenaam, Chela Reno MD Unavailable Unavailable Vaneenenaam, Chela Reno MD Unavailable Unavailable Vaneenenaam, Chela Reno MD Unavailable Unavailable Vaneenenaam, Chela Reno MD Unavailable Unavailable Vaneenenaam, Chela Reno MD Unavailable Unavailable Vaneenenaam, Chela Reno MD Unavailable Unavailable Vaneenenaam, Chela Reno MD Unavailable Unavailable Vaneenenaam, Chela Reno MD Unavailable Unavailable Vaneenenaam, Chela Reno MD Unavailable Unavailable Vaneenenaam, Chela Reno MD Unavailable Unavailable Vaneenenaam, Chela Reno MD Unavailable Unavailable Vaneenenaam, Chela Reno MD Unavailable Unavailable Vaneenenaam, Chela Reno MD Unavailable Unavailable Vaneenenaam, Chela Reno MD Unavailable Unavailable Vaneenenaam, Chela Reno MD Unavailable Unavailable Vaneenenaam, Chela Reno MD Unavailable Unavailable Vaneenenaam, Chela Reno MD Unavailable Unavailable Vaneenenaam, Chela Reno MD Unavailable Unavailable Vaneenenaam, Chela Reno MD Unavailable Unavailable Vaneenenaam, Chela Reno MD Unavailable Unavailable Vaneenenaam, Chela Reno MD Unavailable Unavailable Vaneenenaam, Chela Reno MD Unavailable Unavailable Vaneenenaam, Chela Reno MD Unavailable Unavailable Vaneenenaam, Chela Reno MD Unavailable Unavailable Vaneenenaam, Chela Reno MD Unavailable Unavailable Vaneenenaam, Chela Reno MD Unavailable Unavailable Vaneenenaam, Chela Reno MD Unavailable Unavailable Vaneenenaam, Chela Reno MD Unavailable Unavailable Vaneenenaam, Chela Reno MD Unavailable Unavailable Vaneenenaam, Chela Reno MD Unavailable Unavailable Vaneenenaam, Chela Reno MD Unavailable Unavailable Vaneenenaam, Chela Reno MD Unavailable Unavailable Vaneenenaam, Chela Reno MD Unavailable Unavailable Vaneencinthiaam, Chela Reno MD Unavailable Unavailable Vaneenenaam, Chela Reno MD Unavailable Unavailable Vaneenenaam, Chela Reno MD Unavailable Unavailable Vaneenenaam, Chela Reno MD Unavailable Unavailable Vaneencinthiaam, Chela Reno MD Unavailable Unavailable Vaneencinthiaam, Chela Reno MD Unavailable Unavailable Dipti Mejia MD Unavailable Unavailable Dipti Mejia MD Unavailable Unavailable Dipti Mejia MD Unavailable Unavailable Dipti Mejia MD Unavailable Unavailable Dipti Mejia MD Unavailable Unavailable Dipti Mejia MD Unavailable Unavailable Dipti Mejia MD Unavailable Unavailable Dipti Mejia MD Unavailable Unavailable Dipti Mejia MD Unavailable Unavailable Dipti Mejia MD Unavailable Unavailable Dipti Mejia MD Unavailable Unavailable Dipti Mejia MD Unavailable Unavailable Dipti Mejia MD Unavailable Unavailable Dipti Mejia MD Unavailable Unavailable Dipti Mejia MD Unavailable Unavailable Dipti Mejia MD Unavailable Unavailable Dipti Mejia MD Unavailable Unavailable Dipti Mejia MD Unavailable Unavailable Dipti Mejia MD Unavailable Unavailable Dipti Mejia MD Unavailable Unavailable Dipti Mejia MD Unavailable Unavailable Dipti Mejia MD Unavailable Unavailable Dipti Mejia MD Unavailable Unavailable Dipti Mejia MD Unavailable Unavailable Dipti Mejia MD Unavailable Unavailable Dipti Mejia MD Unavailable Unavailable Dipti Mejia MD Unavailable Unavailable Dipti Mejia MD Unavailable Unavailable Dipti Mejia MD Unavailable Unavailable Dipti Mejia MD Unavailable Unavailable Dipti Mejia MD Unavailable Unavailable Dipti Mejia MD Unavailable Unavailable Dipti Mejia MD Unavailable Unavailable Dipti Mejia MD Unavailable Unavailable Dipti Mejia MD Unavailable Unavailable Dipti Mejia MD Unavailable Unavailable Dipti Mejia MD Unavailable Unavailable Dipti Mejia MD Unavailable Unavailable Dipti Mejia MD Unavailable Unavailable Dipti Mejia MD Unavailable Unavailable Dipti Mejia MD Unavailable Unavailable Dipti Mejia MD Unavailable Unavailable Dipti Mejia MD Unavailable Unavailable Dipti Mejia MD Unavailable Unavailable Dipti Mejia MD Unavailable Unavailable Dipti Mejia MD Unavailable Unavailable Dipti Mejia MD Unavailable Unavailable Dipti Mejia MD Unavailable Unavailable Dipti Mejia MD Unavailable Unavailable Dipti Mejia MD Unavailable Unavailable Dipti Mejia MD Unavailable Unavailable Dipti Mejia MD Unavailable Unavailable Dipti Mejia MD Unavailable Unavailable Dipti Mejia MD Unavailable Unavailable Roberto, O Samah MD Unavailable Unavailable Roberto, O Samah MD Unavailable Unavailable Roberto, O Samah MD Unavailable Unavailable Roberto, O Samah MD Unavailable Unavailable Roberto, O Samah MD Unavailable Unavailable Roberto, O Samah MD Unavailable Unavailable Roberto, O Samah MD Unavailable Unavailable Roberto, O Samah MD Unavailable Unavailable Roberto, O Samah MD Unavailable Unavailable Roberot, O Samah MD Unavailable Unavailable Roberto, O Samah MD Unavailable Unavailable Roberto, O Samah MD Unavailable Unavailable Roberto, O Samah MD Unavailable Unavailable Roberto, O Samah MD Unavailable Unavailable Roberto, O Samah MD Unavailable Unavailable Roberto, O Samah MD Unavailable Unavailable Roberto, O Samah MD Unavailable Unavailable Roberto, O Samah MD Unavailable Unavailable Roberto, O Samah MD Unavailable Unavailable Roberto, O Samah MD Unavailable Unavailable Roberto, O Samah MD Unavailable Unavailable Roberto, O Samah MD Unavailable Unavailable JERRELL SPANGLER MD Unavailable Unavailable JERRELL SPANGLER MD Unavailable Unavailable BALWINDERJERRELL MCNEAL MD Unavailable Unavailable BALWINDERJERRELL MCNEAL MD Unavailable Unavailable BALWINDERJERRELL MCNEAL MD Unavailable Unavailable JERRELL SPANGLER MD Unavailable Unavailable JRERELL SPANGLER MD Unavailable Unavailable DARLENE NARANJO MD Unavailable Unavailable DARLENE NARANJO MD Unavailable Unavailable DARLENE NARANJO MD Unavailable Unavailable DARLENE NARANJO MD Unavailable Unavailable DARLENE NARANJO MD Unavailable Unavailable DARLENE NARANJO MD Unavailable Unavailable DARLENE NARANJO MD Unavailable Unavailable DARLENE NARANJO MD Unavailable Unavailable DARLENE NARANJO MD Unavailable Unavailable DARLENE NARANJO MD Unavailable Unavailable DARLENE NARANJO MD Unavailable Unavailable DARLENE NARANJO MD Unavailable Unavailable DARLENE NARANJO MD Unavailable Unavailable DARLENE NARANJO MD Unavailable Unavailable DARLENE NARANJO MD Unavailable Unavailable DARLENE NARANJO MD Unavailable Unavailable DARLENE NARANJO MD Unavailable Unavailable DARLENE NARANJO MD Unavailable Unavailable DARLENE NARAJNO MD Unavailable Unavailable DARLENE NARANJO MD Unavailable Unavailable DARLENE NARANJO MD Unavailable Unavailable DARLENE NARANJO MD Unavailable Unavailable DARLENE NARANJO MD Unavailable Unavailable DARLENE NARANJO MD Unavailable Unavailable DARLENE NARANJO MD Unavailable Unavailable MARKWITH, DARLENE BHARDWAJ Unavailable Unavailable MARKWITH, DARLENE BHARDWAJ Unavailable Unavailable MARKWITH, DARLENE BHARDWAJ Unavailable Unavailable MARKWITH, DARLENE BHARDWAJ Unavailable Unavailable MARKWITH, DARLENE BHARDWAJ Unavailable Unavailable MARKWITH, DARLENE BHARDWAJ Unavailable Unavailable MARKWITH, DARLENE BHARDWAJ Unavailable Unavailable MARKWITH, DARLENE BHARDWAJ Unavailable Unavailable Re-disclosure Warning The records that you are about to access may contain information from federally-assisted alcohol or drug abuse programs. If such information is present, then the following federally mandated warning applies: This information has been disclosed to you from records protected by federal confidentiality rules (42 CFR part 2). The federal rules prohibit you from making any further disclosure of this information unless further disclosure is expressly permitted by the written consent of the person to whom it pertains or as otherwise permitted by 42 CFR part 2. A general authorization for the release of medical or other information is NOT sufficient for this purpose. The Federal rules restrict any use of the information to criminally investigate or prosecute any alcohol or drug abuse patient.The records that you are about to access may contain highly sensitive health information, the redisclosure of which is protected by Article 27-F of the [facility] Public Health law. If you continue you may have access to information: Regarding HIV / AIDS; Provided by facilities licensed or operated by the [facility] Office of Mental Health; or Provided by the [facility] Office for People With Developmental Disabilities. If such information is present, then the following [facility] mandated warning applies: This information has been disclosed to you from confidential records which are protected by state law. State law prohibits you from making any further disclosure of this information without the specific written consent of the person to whom it pertains, or as otherwise permitted by law. Any unauthorized further disclosure in violation of state law may result in a fine or custodial sentence or both. A general authorization for the release of medical or other information is NOT sufficient authorization for further disc losure. Allergies and Adverse Reactions Type Description Substance Reaction Status Data Source(s ) Drug allergy levofloxacin Levofloxacin Hives [facility] Drug allergy meloxicam meloxicam Nausea/Vomit/Gastric U [facility] Drug allergy procaine procaine [facility] Drug allergy gabapentin gabapentin Rash U [facility] Drug allergy clarithromycin Clarithromycin Nausea/Vomit/Gastric U [facility] Drug allergy famotidine famotidine Nausea/Vomit/Gastric U [facility] Drug allergy nitrofurantoin nitrofurantoin Other, not listed [facility] Drug allergy doxycycline doxycycline Nausea/Vomit/Gastric U [facility] Drug allergy cephalexin cephalexin Anaphylaxis U [facility] Drug allergy Antihistamines - Alkylamine Antihistamines - Alkylamine Rash U [facility] Drug allergy Sulfa (Sulfonamide Antibiotics) Sulfa (Sulfonami de Antibiotics) [facility] Penicillins Penicillin Anaphylaxis [facility] Drug allergy Iodinated Contrast Media Iodinated Contrast Media Anaphy laxis U [facility] Drug allergy No Known Drug Allergies No Known Drug Allergies [facility] Drug allergy contrast dye contrast dye [facility] BRANDNAME ANTIHISTAMINE ANTIHISTAMINE [facility] BRANDNAME PEPCID PEPCID [facility] BRANDNAME NOVOCAIN NOVOCAIN [facility] BRANDNAME LEVUIN LEVUIN [facility] BRANDNAME KEFLEX KEFLEX [facility] BRANDNAME BIAXIN BIAXIN [facility] Drug allergy DOXYCYCLINE DOXYCYCLINE [facility] CLASS PENICILLINS (CLASS) PENICILLINS (CLASS) [facility] CLASS SULFA (sulfonamide) SULFA (sulfonamide) [facility] Drug allergy Levaquin Drug allergy Hives Active eCW1 ([facility]) Drug allergy Doxycycline Hyclate Doxycycline N/V Active eC W1 ([facility]) Drug allergy Mobic meloxicam Nausea/Vomiting Active eCW1 ( [facility]) Drug allergy Pepcid Famotidine vomiting Active eCW1 ([facility]) Drug allergy Keflex Cephalexin Anaphylaxis Active eCW1 ([facility]) Novocain Novocain Novocain passed out Active eCW1 ([facility]) Biaxin Biaxin Clarithromycin 250 MG Oral Tablet [Biaxin] dysp epsia Active eCW1 ([facility]) antihistamines antihistamines antihistamines Rash Active eC W1 ([facility]) contrast dye contrast dye contrast dye can't breathe Active eCW1 ([facility]) macrodantin macrodantin NITROFURANTOIN, MACR OCRYSTALS 50 MG Oral Capsule [Macrodantin] , paresthesias Active eCW1 ([facility]) Novocain Novocain Novocain passed out Active eCW1 ([facility]) Biaxin Biaxin Clarithromycin 250 MG Oral Tablet [Biaxin] dysp epsia Active eCW1 ([facility]) Levaquin Levaquin Levofloxacin 750 MG Oral Tablet [Levaquin] Hive s Active eCW1 ([facility]) macrodantin macrodantin NITROFURANTOIN, MACR OCRYSTALS 50 MG Oral Capsule [Macrodantin] , paresthesias Active eCW1 ([facility]) antihistamines antihistamines antihistamines Rash Active eC W1 ([facility]) contrast dye contrast dye contrast dye can't breathe Active eCW1 ([facility]) Novocain Novocain Novocain passed out Active eCW1 ([facility]) Biaxin Biaxin Biaxin dyspepsia Active eCW1 ([facility]) contrast dye contrast dye contrast dye can't breathe Active eCW1 ([facility]) antihistamines antihistamines antihistamines Rash Active eC W1 ([facility]) macrodantin macrodantin macrodantin , paresthesias Active eCW1 ( [facility]) Novocain Novocain Novocain passed out Active eCW1 ([facility]) Biaxin Biaxin Clarithromycin 250 MG Oral Tablet [Biaxin] dysp epsia Active eCW1 ([facility]) antihistamines antihistamines antihistamines Rash Active eC W1 ([facility]) contrast dye contrast dye contrast dye can't breathe Active eCW1 ([facility]) macrodantin macrodantin NITROFURANTOIN, MACR OCRYSTALS 50 MG Oral Capsule [Macrodantin] , paresthesias Active eCW1 ([facility]) Family History Family Member Name Family Member Gender Family Member Status Date o f Status Description Data Source(s) Unknown Unknown Problem [facility] ([facility] Unknown Female Problem [facility] ([facility]) Unknown Female Problem [facility] ([facility]) Unknown Female Problem [facility] ([facility]) Encounters Encounter Providers Location Date Indications Data Source(s ) Unknown [id number] [facility] [address] 10/20/2020 12:00:00 AM EST eCW1 ([facility]) [place] [id number] [facility] [address] 10/17/2020 12:00:00 AM EST eCW1 ([facility]) [place] [address] [facility] [address] 10/17/2020 12:00:00 AM EST eCW1 ([facility]) Unknown [address] [facility] [address] 10/16/2020 12:00:00 AM EST eCW1 ([facility]) Unknown [address] [facility] [address] 10/09/2020 12:00:00 AM EST eCW1 ([facility]) Inpatient Attender: JERRELL Mallory nder: Max Coffey MDAdmitter: JERRELL SPANGLER MD 10/04/2020 12:07:00 PM EST - 10/06/2020 12:50:00 PM EST PNEUMONIA [facility] PNEUMONIA Patient discharged. Unknown [address] [facility] [address] 10/03/2020 12:00:00 AM EST eCW1 ([facility]) Unknown [address] [facility] [address] 10/03/2020 12:00:00 AM EST eCW1 ([facility]) Unknown [address] [facility] [address] 09/04/2020 12:00:00 AM EST eCW1 ([facility]) Unknown [address] [facility] [address] 07/29/2020 12:00:00 AM EST eCW1 ([facility]) Outpatient Attender: Chela Epps MD Physical Therap y 07/23/2020 02:44:00 PM EST MEDENT ([facility]) Office Visit Attender: Sami Mejia MD Main office - [facility] 07/22/2020 12:15:00 PM EST MEDENT ([facility]) Outpatient [address] [facility] [address] 07/18/2020 12:00:00 AM EDT eCW1 ([facility]) Unknown [address] [facility] [address] 07/18/2020 12:00:00 AM EDT eCW1 ([facility]) Unknown [address] [facility] [address] 07/14/2020 12:00:00 AM EDT eCW1 ([facility]) Unknown [address] [facility] [address] 07/14/2020 12:00:00 AM EDT eCW1 ([facility]) Unknown [address] [facility] [address] 07/11/2020 12:00:00 AM EDT eCW1 ([facility]) Outpatient [address] [facility] [address] 07/10/2020 12:00:00 AM EDT eCW1 ([facility]) Unknown [address] [facility] [address] 07/09/2020 12:00:00 AM EDT eCW1 ([facility]) Unknown [address] [facility] [address] 07/04/2020 12:00:00 AM EDT eCW1 ([facility]) Outpatient [address] [facility] [address] 07/01/2020 12:00:00 AM EDT eCW1 ([facility]) Unknown [address] [facility] [address] 06/27/2020 12:00:00 AM EDT eCW1 ([facility]) Outpatient Attender: Sami Mejia MDConsultant: Wail wong MD 04/30/2020 10:25:54 AM EDT [facility] Office Visit Attender: Sami Mejia MD Main office - [facility] 04/16/2020 10:30:00 AM EDT MEDENT ([facility]) Unknown [address] [facility] [address] 04/07/2020 12:00:00 AM EDT eCW1 ([facility]) Unknown [address] [facility] [address] 03/28/2020 12:00:00 AM EDT eCW1 ([facility]) Outpatient Attender: DARLENE NARANJO MD Physical Therapy 10:30:00 AM EDT MEDENT ([facility]) Office Visit Attender: Sami Mejia MD [facility] office - [facility] 03/03/2020 01:45:00 PM EDT MEDENT ([facility]) Unknown [address] [facility] [address] 02/29/2020 12:00:00 AM EDT eCW1 ([facility]) Unknown [address] [facility] [address] 02/28/2020 12:00:00 AM EDT eCW1 ([facility]) Outpatient [address] [facility] [address] 02/28/2020 12:00:00 AM EDT eCW1 ([facility]) [place] [address] [facility] [address] 02/26/2020 12:00:00 AM EDT eCW1 ([facility]) Unknown [address] [facility] [address] 02/25/2020 12:00:00 AM EDT eCW1 ([facility]) Outpatient Attender: DARLENE NARANJO MD Physical Therapy 10:00:00 AM EDT MEDENT ([facility]) [address] [address] 02/07/2020 12:00:00 AM EDT eCW1 ([facility]) [address] [address] 01/24/2020 12:00:00 AM EDT eCW1 ([facility]) [address] [address] 01/14/2020 12:00:00 AM EDT eCW1 ([facility]) [address] [address] 01/14/2020 12:00:00 AM EDT eCW1 ([facility]) [address] [address] 01/10/2020 12:00:00 AM EDT eCW1 ([facility]) [address] [address] 01/07/2020 12:00:00 AM EDT eCW1 ([facility]) [address] [address] 12/24/2019 12:00:00 AM EDT eCW1 ([facility]) [address] [address] 12/06/2019 12:00:00 AM EDT eCW1 ([facility]) Outpatient Attender: Sami Mejia MD Main office [facility] 11/30/2019 11:30:00 AM EDT MEDENT ([facility]) [address] [address] 11/28/2019 12:00:00 AM EDT eCW1 ([facility]) [address] [address] 11/23/2019 12:00:00 AM EST eCW1 ([facility]) [address] [address] 11/22/2019 12:00:00 AM EST [facility] [address] [address] 11/22/2019 12:00:00 AM EST eCW1 ([facility]) [address] [address] 11/22/2019 12:00:00 AM EST eCW1 ([facility]) [address] [address] 11/22/2019 12:00:00 AM EST eCW1 ([facility]) Outpatient Referrer: KENJI WILLIAM NP 11/15/2019 06:29:00 PM E [facility] [address] [address] 11/08/2019 12:00:00 AM EST eCW1 ([facility]) Emergency Attender: DARLENE NARANJO MD Physical Therapy 03:26:00 PM EST MEDENT ([facility]) [address] [address] 11/01/2019 12:00:00 AM EST eCW1 ([facility]) [address] [address] 11/01/2019 12:00:00 AM EST eCW1 ([facility]) [address] [address] 10/25/2019 12:00:00 AM EST eCW1 ([facility]) [address] [address] 10/16/2019 12:00:00 AM EST eCW1 ([facility]) [address] [address] 10/16/2019 12:00:00 AM EST eCW1 ([facility]) [facility] [address] [place] [address], [place] [address] 10/15/2019 12:00:00 AM EST eCW1 ([facility]) [facility] [address] [place] [address], [place] [address] 10/03/2019 12:00:00 AM EST eCW1 (Count includes the [facility]) [facility] [address] [place] [address], [place] [address] 10/02/2019 12:00:00 AM EST eCW1 ([facility]) [address] [address] 10/01/2019 12:00:00 AM EST eCW1 ([facility]) [facility] [address] [place] [address], [place] [address] 09/28/2019 12:00:00 AM EST eCW1 ([facility]) [address] [address] 09/20/2019 12:00:00 AM EST eCW1 ([facility]) [address] [address] 09/11/2019 12:00:00 AM EST eCW1 ([facility]) [address] [address] 09/10/2019 12:00:00 AM EST eCW1 ([facility]) Functional Status Immunizations Vaccine Date Status Description Data Source(s) COVID-19(given elsewhere) Unspecified 10/14/2020 02:53:00 PM EST co mpleted eCW1 ([facility]) COVID-19(given elsewhere) Unspecified 10/14/2020 02:53:00 PM EST co mpleted eCW1 ([facility]) COVID-19(given elsewhere) Unspecified 10/14/2020 02:53:00 PM EST co mpleted eCW1 ([facility]) COVID-19(given elsewhere) Unspecified 10/14/2020 02:53:00 PM EST co mpleted eCW1 ([facility]) COVID-19(given elsewhere) Unspecified 09/19/2020 02:52:00 PM EST co mpleted eCW1 ([facility]) COVID-19(given elsewhere) Unspecified 09/19/2020 02:52:00 PM EST co mpleted eCW1 ([facility]) COVID-19(given elsewhere) Unspecified 09/19/2020 02:52:00 PM EST co mpleted eCW1 ([facility]) COVID-19(given elsewhere) Unspecified 09/19/2020 02:52:00 PM EST co mpleted eCW1 ([facility]) Prolia 60mg/1mL (Denosumab) 01/24/2020 05:16:00 PM EDT completed eCW1 ([facility]) Prolia 60mg/1mL (Denosumab) 01/24/2020 05:16:00 PM EDT completed eCW1 ([facility]) Prolia 60mg/1mL (Denosumab) 01/24/2020 05:16:00 PM EDT completed eCW1 ([facility]) Prolia 60mg/1mL (Denosumab) 01/24/2020 05:16:00 PM EDT completed eCW1 ([facility]) Prolia 60mg/1mL (Denosumab) 01/24/2020 05:16:00 PM EDT completed eCW1 ([facility]) Prolia 60mg/1mL (Denosumab) 01/24/2020 05:16:00 PM EDT completed eCW1 ([facility]) Prolia 60mg/1mL (Denosumab) 01/24/2020 05:16:00 PM EDT completed eCW1 ([facility]) Prolia 60mg/1mL (Denosumab) 01/24/2020 05:16:00 PM EDT completed eCW1 ([facility]) Prolia 60mg/1mL (Denosumab) 01/24/2020 05:16:00 PM EDT completed eCW1 ([facility]) Prolia 60mg/1mL (Denosumab) 01/24/2020 05:16:00 PM EDT completed eCW1 ([facility]) Prolia 60mg/1mL (Denosumab) 01/24/2020 05:16:00 PM EDT completed eCW1 ([facility]) Prolia 60mg/1mL (Denosumab) 01/24/2020 05:16:00 PM EDT completed eCW1 ([facility]) Prolia 60mg/1mL (Denosumab) 01/24/2020 05:16:00 PM EDT completed eCW1 ([facility]) Prolia 60mg/1mL (Denosumab) 01/24/2020 05:16:00 PM EDT completed eCW1 ([facility]) Prolia 60mg/1mL (Denosumab) 01/24/2020 05:16:00 PM EDT completed eCW1 ([facility]) Prolia 60mg/1mL (Denosumab) 01/24/2020 05:16:00 PM EDT completed eCW1 ([facility]) Prolia 60mg/1mL (Denosumab) 01/24/2020 05:16:00 PM EDT completed eCW1 ([facility]) Prolia 60mg/1mL (Denosumab) 01/24/2020 05:16:00 PM EDT completed eCW1 ([facility]) Prolia 60mg/1mL (Denosumab) 01/24/2020 05:16:00 PM EDT completed eCW1 ([facility]) Prolia 60mg/1mL (Denosumab) 01/24/2020 05:16:00 PM EDT completed eCW1 ([facility]) Prolia 60mg/1mL (Denosumab) 01/24/2020 05:16:00 PM EDT completed eCW1 ([facility]) Prolia 60mg/1mL (Denosumab) 01/24/2020 05:16:00 PM EDT completed eCW1 ([facility]) Medications Medication Brand Name Start Date Product Form Dose Route Admi nistrative Instructions Pharmacy Instructions Status Indications Reaction Description Data Source(s) cefpodoxime 200 MG Oral Tablet Cefpodoxime Cefpodoxime 10/06/2020 11:05:51 AM EST 200 MG [facility] Metronidazole 500 MG Oral Tablet Metronidazole 10/06/2020 11:00:36 AM EST 500 MG [facility] L. Acidophilus-L. Rhamnosus (Probiotic) 15 billion cell caps ule 10/06/2020 10:38:24 AM EST 1 CAP active [facility] Esomeprazole 40 MG Delayed Release Oral Capsule Esomep razole Magnesium Esomeprazole Magnesium 10/04/2020 03:48:00 PM EST 40 MG [facility] mycophenolate mofetil 500 MG Oral Tablet Mycophenolate Mofetil Mycophenolate Mofetil 10/04/2020 02:56:16 PM EST 1000 MG [facility] Ergocalciferol 03167 UNT Oral Capsule Er gocalciferol (Vitamin D2) (Vitamin D2) 1,250 mcg (50,000 unit) Capsule Ergocalciferol (Vitamin D2) (Vitamin D2) 1,250 mcg (50,000 unit) Capsule 10/04/2020 02:56:16 PM EST [address] [facility] Cal[facility] Carbonate 500 MG Chewable Tablet Calcium Carbonate (Tums) 200 mg calcium (500 mg) Tablet,Chewable Calcium Carbonate (Tums) 200 mg calcium (500 mg) Tablet,Chewable 10/04/2020 02:56:16 PM EST 400 MG [facility] Aspirin 10/04/2020 02:56:16 PM EST 81 MG [facility] rivaroxaban 20 MG Oral Tablet Rivaroxaban (Xarelto) 20 mg tablet Rivaroxaban (Xarelto) 20 mg tablet 10/04/2020 02:56:16 PM EST 20 MG [facility] quetiapine 25 MG Oral Tablet Quetiapine Quetiapine 10/04/2020 02: 56:16 PM EST 12.5 MG [facility] Pyridostigmine [place] 60 MG Oral Tablet Pyridostigmine Brom kelvin 10/04/2020 02:56:16 PM EST 60 MG [facility] Furosemide 40 MG Oral Tablet Furosemide 10/04/2020 02:56:16 PM EST 40 MG active [facility] Metoprolol Tartrate 25 MG Oral Tablet Metoprolol Tartrate 02:56:16 PM EST 25 MG active [facility] Prednisone 20 MG Oral Tablet Prednisone 10/04/2020 02:53:54 PM EST 20 MG active [facility] valganciclovir 450 MG Oral Tablet Valganciclovir HCl 4 50 MG Valganciclovir HCl 450 MG 07/10/2020 12:00:00 AM EDT 2.0 {tablets_with_a_meal} active Valganciclovir HCl 450 MG eCW1 ([facility]) valganciclovir 450 MG Oral Tablet Valganciclovir HCl 4 50 MG Valganciclovir HCl 450 MG 07/10/2020 12:00:00 AM EDT 2.0 {tablets_with_a_meal} active Valganciclovir HCl 450 MG eCW1 ([facility]) valganciclovir 450 MG Oral Tablet Valganciclovir HCl 4 50 MG Valganciclovir HCl 450 MG 07/10/2020 12:00:00 AM EDT 2.0 {tablets_with_a_meal} active Valganciclovir HCl 450 MG eCW1 ([facility]) Nystatin 516031 UNT/ML Topical Cream Nystatin 528297 U NIT/GM Nystatin 858041 UNIT/GM 07/10/2020 12:00:00 AM EDT 1.0 {application} active Nystatin 758731 UNIT/GM eCW1 ([facility]) valganciclovir 450 MG Oral Tablet Valganciclovir HCl 4 50 MG Valganciclovir HCl 450 MG 07/10/2020 12:00:00 AM EDT 2.0 {tablets_with_a_meal} active Valganciclovir HCl 450 MG eCW1 ([facility]) Nystatin 503320 UNT/ML Topical Cream Nystatin 612072 U NIT/GM Nystatin 618428 UNIT/GM 07/10/2020 12:00:00 AM EDT 1.0 {application} active Nystatin 365593 UNIT/GM eCW1 ([facility]) Nystatin 776495 UNT/ML Topical Cream Nystatin 522081 U NIT/GM Nystatin 216586 UNIT/GM 07/10/2020 12:00:00 AM EDT 1.0 {application} active Nystatin 374953 UNIT/GM eCW1 ([facility]) Nystatin 961086 UNT/ML Topical Cream Nystatin 933883 U NIT/GM Nystatin 339149 UNIT/GM 07/10/2020 12:00:00 AM EDT 1.0 {application} active Nystatin 737344 UNIT/GM eCW1 ([facility]) Nystatin 769760 UNT/ML Topical Cream Nystatin 952784 U NIT/GM Nystatin 516964 UNIT/GM 07/10/2020 12:00:00 AM EDT 1.0 {application} active Nystatin 397301 UNIT/GM eCW1 ([facility]) valganciclovir 450 MG Oral Tablet Valganciclovir HCl 4 50 MG Valganciclovir HCl 450 MG 07/10/2020 12:00:00 AM EDT 2.0 {tablets_with_a_meal} active Valganciclovir HCl 450 MG eCW1 ([facility]) Rivaroxaban 20 MG UNK 07/01/2020 12:00:00 AM EDT 1.0 {tablet _with_food} active Rivaroxaban 20 MG eCW1 ([facility]) Rivaroxaban 20 MG UNK 07/01/2020 12:00:00 AM EDT 1.0 {tablet _with_food} active Rivaroxaban 20 MG eCW1 ([facility]) mesalamine 1200 MG Delayed Release Oral Tablet Mesalam ine 1.2 GM Mesalamine 1.2 GM 06/24/2020 12:00:00 AM EDT 2.0 {tablets} acti ve Mesalamine 1.2 GM eCW1 ([facility]) Diazepam 5 MG Oral Tablet Diazepam 04/17/2020 12:00:00 AM EDT active MEDENT ([facility]) Prednisone 20 MG Oral Tablet Prednisone 04/16/2020 12:00:00 AM EDT active MEDENT ([facility]) pregabalin 50 MG Oral Capsule [Lyrica] Lyrica 50 MG Lyrica 5 0 MG 04/01/2020 12:00:00 AM EDT 1.0 {capsule} active L yrica 50 MG eCW1 ([facility]) pregabalin 50 MG Oral Capsule [Lyrica] Lyrica 50 MG Lyrica 5 0 MG 04/01/2020 12:00:00 AM EDT 1.0 {capsule} active L yrica 50 MG eCW1 ([facility]) pregabalin 50 MG Oral Capsule [Lyrica] Lyrica 50 MG Lyrica 5 0 MG 04/01/2020 12:00:00 AM EDT 1.0 {capsule} active L yrica 50 MG eCW1 ([facility]) Diclofenac Sodium 0.01 MG/MG Topical Gel Voltaren 02/18/2020 12 :00:00 AM EDT active MEDENT ([facility]) Docusate Sodium 100 MG Oral Capsule [Colace] Colace 100 MG C olace 100 MG 01/14/2020 12:00:00 AM EDT 1.0 {capsule_as_needed} active Colace 100 MG eCW1 ([facility]) Docusate Sodium 100 MG Oral Capsule [Colace] Colace 100 MG C olace 100 MG 01/14/2020 12:00:00 AM EDT active 1 capsule as needed eCW1 ([facility]) Hydrocortisone 25 MG/ML Topical Cream [Anusol HC] Anus ol-HC 2.5 % Anusol-HC 2.5 % 01/07/2020 12:00:00 AM EDT 1.0 {application} active Anusol-HC 2.5 % eCW1 ([facility]) Hydrocortisone 25 MG/ML Topical Cream [Anusol HC] Anus ol-HC 2.5 % Anusol-HC 2.5 % 01/07/2020 12:00:00 AM EDT 1.0 {application} active Anusol-HC 2.5 % eCW1 ([facility]) Hydrocortisone 25 MG/ML Topical Cream [Anusol HC] Anus ol-HC 2.5 % Anusol-HC 2.5 % 01/07/2020 12:00:00 AM EDT 1.0 {application} active Anusol-HC 2.5 % eCW1 ([facility]) Hydrocortisone 25 MG/ML Topical Cream [Anusol HC] Anus ol-HC 2.5 % Anusol-HC 2.5 % 01/07/2020 12:00:00 AM EDT 1.0 {application} active Anusol-HC 2.5 % eCW1 ([facility]) Hydrocortisone 25 MG/ML Topical Cream [Anusol HC] Anus ol-HC 2.5 % Anusol-HC 2.5 % 01/07/2020 12:00:00 AM EDT 1.0 {application} active Anusol-HC 2.5 % eCW1 ([facility]) Hydrocortisone 25 MG/ML Topical Cream [Anusol HC] Anus ol-HC 2.5 % Anusol-HC 2.5 % 01/07/2020 12:00:00 AM EDT active 1 application eCW1 ([facility]) Hydrocortisone 25 MG/ML Topical Cream [Anusol HC] Anus ol-HC 2.5 % Anusol-HC 2.5 % 01/07/2020 12:00:00 AM EDT 1.0 {application} active Anusol-HC 2.5 % eCW1 ([facility]) Hydrocortisone 25 MG/ML Topical Cream [Anusol HC] Anus ol-HC 2.5 % Anusol-HC 2.5 % 01/07/2020 12:00:00 AM EDT 1.0 {application} active Anusol-HC 2.5 % eCW1 ([facility]) Hydrocortisone 25 MG/ML Topical Cream [Anusol HC] Anus ol-HC 2.5 % Anusol-HC 2.5 % 01/07/2020 12:00:00 AM EDT 1.0 {application} active Anusol-HC 2.5 % eCW1 ([facility]) Hydrocortisone 25 MG/ML Topical Cream [Anusol HC] Anus ol-HC 2.5 % Anusol-HC 2.5 % 01/07/2020 12:00:00 AM EDT 1.0 {application} active Anusol-HC 2.5 % eCW1 ([facility]) Hydrocortisone 25 MG/ML Topical Cream [Anusol HC] Anus ol-HC 2.5 % Anusol-HC 2.5 % 01/07/2020 12:00:00 AM EDT 1.0 {application} active Anusol-HC 2.5 % eCW1 ([facility]) Hydrocortisone 25 MG/ML Topical Cream [Anusol HC] Anus ol-HC 2.5 % Anusol-HC 2.5 % 01/07/2020 12:00:00 AM EDT 1.0 {application} active Anusol-HC 2.5 % eCW1 ([facility]) Hydrocortisone 25 MG/ML Topical Cream [Anusol HC] Anus ol-HC 2.5 % Anusol-HC 2.5 % 01/07/2020 12:00:00 AM EDT 1.0 {application} active Anusol-HC 2.5 % eCW1 ([facility]) Hydrocortisone 25 MG/ML Topical Cream [Anusol HC] Anus ol-HC 2.5 % Anusol-HC 2.5 % 01/07/2020 12:00:00 AM EDT 1.0 {application} active Anusol-HC 2.5 % eCW1 ([facility]) Hydrocortisone 25 MG/ML Topical Cream [Anusol HC] Anus ol-HC 2.5 % Anusol-HC 2.5 % 01/07/2020 12:00:00 AM EDT 1.0 {application} active Anusol-HC 2.5 % eCW1 ([facility]) Hydrocortisone 25 MG/ML Topical Cream [Anusol HC] Anus ol-HC 2.5 % Anusol-HC 2.5 % 01/07/2020 12:00:00 AM EDT 1.0 {application} active Anusol-HC 2.5 % eCW1 ([facility]) Hydrocortisone 25 MG/ML Topical Cream [Anusol HC] Anus ol-HC 2.5 % Anusol-HC 2.5 % 01/07/2020 12:00:00 AM EDT 1.0 {application} active Anusol-HC 2.5 % eCW1 ([facility]) Hydrocortisone 25 MG/ML Topical Cream [Anusol HC] Anus ol-HC 2.5 % Anusol-HC 2.5 % 01/07/2020 12:00:00 AM EDT 1.0 {application} active Anusol-HC 2.5 % eCW1 ([facility]) Hydrocortisone 25 MG/ML Topical Cream [Anusol HC] Anus ol-HC 2.5 % Anusol-HC 2.5 % 01/07/2020 12:00:00 AM EDT 1.0 {application} active Anusol-HC 2.5 % eCW1 ([facility]) Hydrocortisone 25 MG/ML Topical Cream [Anusol HC] Anus ol-HC 2.5 % Anusol-HC 2.5 % 01/07/2020 12:00:00 AM EDT 1.0 {application} active Anusol-HC 2.5 % eCW1 ([facility]) Hydrocortisone 25 MG/ML Topical Cream [Anusol HC] Anus ol-HC 2.5 % Anusol-HC 2.5 % 01/07/2020 12:00:00 AM EDT 1.0 {application} active Anusol-HC 2.5 % eCW1 ([facility]) Hydrocortisone 25 MG/ML Topical Cream [Anusol HC] Anus ol-HC 2.5 % Anusol-HC 2.5 % 01/07/2020 12:00:00 AM EDT 1.0 {application} active Anusol-HC 2.5 % eCW1 ([facility]) Hydrocortisone 25 MG/ML Topical Cream [Anusol HC] Anus ol-HC 2.5 % Anusol-HC 2.5 % 01/07/2020 12:00:00 AM EDT 1.0 {application} active Anusol-HC 2.5 % eCW1 ([facility]) Hydrocortisone 25 MG/ML Topical Cream [Anusol HC] Anus ol-HC 2.5 % Anusol-HC 2.5 % 01/07/2020 12:00:00 AM EDT 1.0 {application} active Anusol-HC 2.5 % eCW1 ([facility]) Hydrocortisone 25 MG/ML Topical Cream [Anusol HC] Anus ol-HC 2.5 % Anusol-HC 2.5 % 01/07/2020 12:00:00 AM EDT 1.0 {application} active Anusol-HC 2.5 % eCW1 ([facility]) Hydrocortisone 25 MG/ML Topical Cream [Anusol HC] Anus ol-HC 2.5 % Anusol-HC 2.5 % 01/07/2020 12:00:00 AM EDT 1.0 {application} active Anusol-HC 2.5 % eCW1 ([facility]) doxycycline hyclate 100 MG Oral Capsule Doxycycline Hy clate 100 MG Doxycycline Hyclate 100 MG 12/24/2019 12:00:00 AM EDT 1.0 {capsule} active Doxycycline Hyclate 100 MG eCW1 ([facility]) doxycycline hyclate 100 MG Oral Capsule Doxycycline Hy clate 100 MG Doxycycline Hyclate 100 MG 12/24/2019 12:00:00 AM EDT 1.0 {capsule} active Doxycycline Hyclate 100 MG eCW1 ([facility]) Depend Pant Medium 1 ea [facility] 11/22/2019 12:00:00 AM EST active Depend Pant Medium 1 ea eCW1 ([facility]) Depend Pant Medium 1 ea [facility] 11/22/2019 12:00:00 AM EST active Depend Pant Medium 1 ea eCW1 ([facility]) Depend Pant Medium 1 ea [facility] 11/22/2019 12:00:00 AM EST active Depend Pant Medium 1 ea eCW1 ([facility]) Depend Pant Medium 1 ea K 11/22/2019 12:00:00 AM EST active Depend Pant Medium 1 ea eCW1 ([facility]) Depend Pant Medium 1 ea K 11/22/2019 12:00:00 AM EST active Depend Pant Medium 1 ea eCW1 ([facility]) Depend Pant Medium 1 ea K 11/22/2019 12:00:00 AM EST active Depend Pant Medium 1 ea eCW1 ([facility]) Depend Pant Medium 1 ea K 11/22/2019 12:00:00 AM EST active Depend Pant Medium 1 ea eCW1 ([facility]) Depend Pant Medium 1 ea UNK 11/22/2019 12:00:00 AM EST active Depend Pant Medium 1 ea eCW1 ([facility]) Depend Pant Medium 1 ea UNK 11/22/2019 12:00:00 AM EST active Depend Pant Medium 1 ea eCW1 ([facility]) Depend Pant Medium 1 ea UNK 11/22/2019 12:00:00 AM EST active Depend Pant Medium 1 ea eCW1 ([facility]) Depend Pant Medium 1 ea UNK 11/22/2019 12:00:00 AM EST active Depend Pant Medium 1 ea eCW1 ([facility]) Depend Pant Medium 1 ea UNK 11/22/2019 12:00:00 AM EST active Depend Pant Medium 1 ea eCW1 ([facility]) Depend Pant Medium 1 ea UNK 11/22/2019 12:00:00 AM EST active Depend Pant Medium 1 ea eCW1 ([facility]) Depend Pant Medium 1 ea UNK 11/22/2019 12:00:00 AM EST active Depend Pant Medium 1 ea eCW1 ([facility]) Depend Pant Medium 1 ea UNK 11/22/2019 12:00:00 AM EST active Depend Pant Medium 1 ea eCW1 ([facility]) Depend Pant Medium 1 ea UNK 11/22/2019 12:00:00 AM EST active Dx Code eCW1 ([facility]) Depend Pant Medium 1 ea UNK 11/22/2019 12:00:00 AM EST active Depend Pant Medium 1 ea eCW1 ([facility]) Calcium Carbonate 1000 MG Chewable Tablet [Tums] Tums Ultra 1000 1000 MG Tums Ultra 1000 1000 MG 11/22/2019 12:00:00 AM EST 1.0 {tablet} active Tums Ultra 1000 1000 MG eCW1 ([facility]) Depend Pant Medium 1 ea UNK 11/22/2019 12:00:00 AM EST active Depend Pant Medium 1 ea eCW1 ([facility]) Depend Pant Medium 1 ea UNK 11/22/2019 12:00:00 AM EST active Depend Pant Medium 1 ea eCW1 ([facility]) Depend Pant Medium 1 ea UNK 11/22/2019 12:00:00 AM EST active Depend Pant Medium 1 ea eCW1 ([facility]) Depend Pant Medium 1 ea UNK 11/22/2019 12:00:00 AM EST active Depend Pant Medium 1 ea eCW1 ([facility]) Depend Pant Medium 1 ea UNK 11/22/2019 12:00:00 AM EST active Depend Pant Medium 1 ea eCW1 ([facility]) Depend Pant Medium 1 ea UNK 11/22/2019 12:00:00 AM EST active Depend Pant Medium 1 ea eCW1 ([facility]) Calcium Carbonate 1000 MG Chewable Tablet [Tums] Tums Ultra 1000 1000 MG Tums Ultra 1000 1000 MG 11/22/2019 12:00:00 AM EST acti ve 1 tablet eCW1 ([facility]) Depend Pant Medium 1 ea UNK 11/22/2019 12:00:00 AM EST active Depend Pant Medium 1 ea eCW1 ([facility]) Depend Pant Medium 1 ea UNK 11/22/2019 12:00:00 AM EST active Depend Pant Medium 1 ea eCW1 ([facility]) Depend Pant Medium 1 ea UNK 11/22/2019 12:00:00 AM EST active Depend Pant Medium 1 ea eCW1 ([facility]) Hydrocortisone 25 MG/ML Topical Cream [Anusol HC] Anus ol-HC 2.5 % Anusol-HC 2.5 % 10/16/2019 12:00:00 AM EST active 1 application eCW1 ([facility]) calcium polycarbophil 625 MG Oral Tablet [FiberCon] Fi berCon 625 MG FiberCon 625 MG 10/16/2019 12:00:00 AM EST active 2 tablets as needed eCW1 ([facility]) Calamine 80 MG/ML / Pramoxine hydrochlor kelvin 10 MG/ML Topical Lotion [Caladryl] Caladryl 1-8 % Caladryl 1-8 % 09/11/2019 12:00:00 AM EST active 1 application to left lower back as needed eCW1 ([facility]) Valcyclovir-1000 mg TID 500 mg UNK 09/11/2019 12:00:00 AM EST active 2 tabs eCW1 ([facility]) Insurance Providers Payer name Policy type / Coverage type Policy ID Covered green party ID Covered green party's relationship to benitez Policy Benitez Plan Information EMEDNY [id number] SP [id number] MEDICARE [id number] SP [id number] [id number] SELF PAY MEDICARE C [id number] S [id number] U94 MEDICAID M [id number] S [id number] MEDICARE [id number] SP [id number] MEDICARE -RECURRING [id number] 18 [id number] MEDICAID -RECURRING [id number] 1 [id number] MEDICAID [id number] SP [id number] ANSI-Medicaid [id number] ANSI-Medicare Part B [id number] ANSI-Medicare Part B [id number] ANSI-Medicaid [id number] ANSI-Medicaid [id number] ANSI-Medicare Part B [id number] ANSI-Medicare Part B [id number] ANSI-Medicaid [id number] [facility]-Medicaid [id number] ANSI-Medicare Part B [id number] [facility] [id number] ANSI-Medicaid [id number] [facility]-Medicaid [id number] ANSI-Medicare Part B [id number] [facility]-Medicaid [id number] ANSI-Medicare Part B [id number] [facility]-Medicaid [id number] ANSI-Medicare Part B [id number] ANSI-Medicare Part B [id number] ANSI-Medicaid [id number] ANSI-Medicare Part B [id number] ANSI-Medicaid [id number] ANSI-Medicaid [id number] ANSI-Medicare Part B [id number] ANSI-Medicare Part B [id number] ANSI-Medicaid [id number] ANSI-Medicaid [id number] ANSI-Medicare Part B [id number] ANSI-Medicare Part B [id number] ANSI-Medicaid [id number] ANSI-Medicaid [id number] ANSI-Medicare Part B [id number] ANSI-Medicaid [id number] ANSI-Medicare Part B [id number] ANSI-Medicare Part B [id number] ANSI-Medicaid [id number] ANSI-Medicare Part B [id number] ANSI-Medicaid [id number] ANSI-Medicare Part B [id number] ANSI-Medicaid [id number] ANSI-Medicaid [id number] ANSI-Medicare Part B [id number] ANSI-Medicaid [id number] ANSI-Medicare Part B [id number] ANSI-Medicaid [id number] ANSI-Medicare Part B [id number] Medicaid [place] [id number] Self [id number] [place] Medicare Primary [id number] Self [id number] ANSI-Medicare Part B [id number] ANSI-Medicaid [id number] ANSI-Medicaid [id number] ANSI-Medicare Part B [id number] ANSI-Medicare Part B [id number] ANSI-Medicaid [id number] ANSI-Medicare Part B [id number] ANSI-Medicaid [id number] ANSI-Medicare Part B [id number] ANSI-Medicaid [id number] ANSI-Medicaid [id number] ANSI-Medicare Part B [id number] ANSI-Medicaid [id number] ANSI-Medicare Part B [id number] ANSI-Medicaid [id number] ANSI-Medicare Part B [id number] Medicaid [facility] Healthcare S D [id number] SELF [id number] Medicare C [id number] SELF [id number] U94 DME Jurisdiction A NHIC C [id number] SELF [id number] ANSI-Medicare Part B [id number] ANSI-Medicaid [id number] MEDICARE PART A-O/P [id number] MEDICARE [id number] Diana [id number] U94 MEDICAID [id number] Diana [id number] MEDICARE [id number] Diana [id number] ANSI-Medicaid [id number] ANSI-Medicare Part B [id number] ANSI-Medicare Part B [id number] ANSI-Medicaid [id number] ANSI-Medicare Part B [id number] ANSI-Medicaid [id number] ANSI-Medicare Part B [id number] ANSI-Medicaid [id number] ANSI-Medicaid [id number] ANSI-Medicare Part B [id number] ANSI-Medicaid [id number] ANSI-Medicare Part B [id number] MEDICAID PI PI MEDICARE PI PI Medicaid [facility] Healthcare S D [id number] SELF [id number] ANSI-Medicare Part B [id number] ANSI-Medicaid [id number] ANSI-Medicare Part B [id number] ANSI-Medicaid [id number] ANSI-Medicaid [id number] ANSI-Medicare Part B [id number] ANSI-Medicare Part B [id number] ANSI-Medicaid [id number] Medicaid [place] [id number] Self [id number] [place] Primary [id number] Self [id number] ANSI-Medicaid [id number] ANSI-Medicare Part B [id number] ANSI-Medicare Part B [id number] ANSI-Medicaid [id number] ANSI-Medicare Part B [id number] ANSI-Medicaid [id number] ANSI-Medicaid [id number] ANSI-Medicare Part B [id number] Medicare C [id number] SELF [id number] ANSI-Medicaid [id number] ANSI-Medicare Part B [id number] ANSI-Medicare Part B [id number] ANSI-Medicaid [id number] MEDICAID -RECURRING [id number] MEDICARE -RECURRING [id number] 18 [id number] ANSI-Medicare Part B [id number] ANSI-Medicaid [id number] ANSI-Medicare Part B [id number] ANSI-Medicaid [id number] ANSI-Medicare Part B [id number] ANSI-Medicaid [id number] ANSI-Medicaid [id number] ANSI-Medicare Part B [id number] Ghi FHP-(DO Not Use) Medigap Part B [id number] Self [id number] [place] [id number] Self [id number] [place] [id number] Self [id number] ANSI-Medicare Part B [id number] ANSI-Medicaid [id number] ANSI-Medicare Part B [id number] ANSI-Medicaid [id number] ANSI-Medicaid [id number] ANSI-Medicare Part B [id number] ANSI-Medicaid [id number] ANSI-Medicare Part B [id number] MEDICARE [id number] SP [id number] DME Jurisdiction A [facility] C [id number] SELF [id number] Medicare C [id number] SELF [id number] MEDICARE C [id number] S [id number] Ghi FHP-(DO Not Use) Medigap Part B [id number] Self [id number] [place] [id number] Self [id number] MEDICAID-O/P [id number] Ghi FHP-(DO Not Use) Medigap Part B [id number] Self [id number] [place] [id number] Self [id number] MEDICAID M [id number] MEDICAID [id number] SP [id number] [place] Part B [id number] Self [id number] [place] Medicare Primary [id number] Self [id number] [place] [id number] Self [id number] [place] Medicare Primary [id number] Self [id number] [place] NO FAULT O [id number] S [id number] [place] [id number] Self [id number] [place] Medicare Primary [id number] Self [id number] [place] [id number] Self [id number] [place] Primary [id number] Self [id number] [place] Medicare Primary Self Ghi FHP-(DO Not Use) [place] Part B [place] Self [employer] PPO [id number] SP [id number] MEDICAID-PHYSICIAN [id number] 18 A [id number] MEDICARE PART B-PHYSICIAN [id number] 18 [id number] MEDICAID - CLINIC [id number] AM [id number] MEDICARE PART A-CLINIC [id number] 18 [id number] [employer] GOLD P [id number] S [id number] [employer] PPO [id number] SP [id number] [employer] GOLD [id number] MEDICAID - O/P EMERGENCY ROOM [id number] Problems, Conditions, and Diagnoses Code Display Name Description Problem Type Effective Dates Data Source(s) B37.2 [id number] Candidiasis of skin Problem 07/10/2020 12:00 :00 AM EDT eCW1 ([facility]) K13.0 [id number] Perleche Problem 07/10/2020 12:00:00 AM ED T eCW1 ([facility]) B25.8 Cytomegalovirus infection Other cytomegaloviral diseas es Problem 07/10/2020 12:00:00 AM EDT eCW1 ([facility]) M77.41 [id number] Metatarsalgia, right foot Problem 07/10/2020 12:00:00 AM EDT eCW1 ([facility]) 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 Sensory peripheral n europathy Problem 07/01/2020 12:00:00 AM EDT eCW1 ([facility]) K50.10 Crohn's disease of colon Crohn's disease of colon Prob gerri 07/01/2020 12:00:00 AM EDT eCW1 ([facility]) K64.9 [id number] Bleeding hemorrhoids Problem 11/22/2019 12:0 0:00 AM EST eCW1 ([facility]) K64.9 [id number] Bleeding hemorrhoids Problem 11/22/2019 12:0 0:00 AM EST eCW1 ([facility]) J30.9 Allergic rhinitis Allergic rhinitis Problem 10/03/2019 12:00:00 AM EST eCW1 ([facility]) J30.9 Allergic rhinitis Allergic rhinitis Problem 10/03/2019 12:00:00 AM EST eCW1 ([facility]) G7001 Myasthenia gravis with (acute) exacerbat ion Myasthenia gravis with (acute) exacerbation Diagnosis 04/30/2020 10:28:00 AM EDT [facility] Surgeries/Procedures Procedure Description Date Indications Data Source(s) X-Ray Femur Minimum 2 Views 10/27/2020 12:00:00 AM EST [facility] ([facility]) CT Thorax without contrast 10/04/2020 05:43:[address] [facility] [address] Abd/pel w/o contrast 10/04/2020 05:41:00 PM [facility] Plain chest X-ray (procedure) 10/04/2020 10:09:00 AM E [facility] Plain chest X-ray (procedure) 10/04/2020 10:09:00 AM E [facility] 10/04/2020 12:00:00 AM [facility] Influenza-Like Illness (PCR) 10/04/2020 12:00:00 AM [facility] Blood culture for bacteria, including anaerobic screen (proc edure) 10/04[facility]2020 [facility] Influenza-Like Illness (PCR) 10/04/2020 12:00:00 AM [facility] Blood Culture 10/04/2020 12:00:00 AM [facility] X-Ray Femur Minimum 2 Views 09/15/2020 12:00:00 AM EST [facility] ([facility]) X-Ray Femur Minimum 2 Views 08/21/2020 12:00:00 AM EST [facility] ([facility]) FX Femur Shaft W/Plate/Screws 07/23/2020 12:00:[address] [facility] ([facility]) FX Femur Shaft W/Plate/Screws 07/23/2020 12:00:[address] [facility] ([facility]) Magnetic Resonance Angiogtaphy Head W/O Contrast Material(S) 04/25/2020 12:00:00 AM EDT [facility] ([facility]) Magnetic Resonance Angiogtaphy Head W/O Contrast Material(S) 04/25/2020 12:00:00 AM EDT [facility] ([facility]) Magnetic Resonance Angiography Neck W/O Contrast Materials 04/25/2020 12:00:00 AM EDT [facility] ([facility]) Magnetic Resonance Angiography Neck W/O Contrast Materials 04/25/2020 12:00:00 AM EDT [facility] ([facility]) MRI BRAIN BRAIN STEM W/O CONTRAST MATERIAL 04/25/2020 12:00:00 AM EDT [facility] ([facility] ) MRI BRAIN BRAIN STEM W/O CONTRAST MATERIAL 04/25/2020 12:00:00 AM EDT [facility] ([facility] ) RADEX WRIST 2 VIEWS 03/25/2020 12:00:00 AM EDT [facility] ([facility] ) RADEX WRIST COMPLETE MINIMUM 3 VIEWS 02/18/2020 12:00: 00 AM EDT [facility] ([facility] ) THER/PROPH/DIAG INJ, SC/IM 01/24/2020 12:00:00 AM EDT eCW1 ([facility]) Injection, denosumab, 1 mg 01/24/2020 12:00:00 AM EDT eCW1 ([facility]) RADEX WRIST COMPLETE MINIMUM 3 VIEWS 12/17/2019 12:00: 00 AM EDT [facility] ([facility]) RADEX WRIST COMPLETE MINIMUM 3 VIEWS 12/12/2019 12:00: 00 AM EDT [facility] ([facility]) APPLICATION CAST ELBOW FINGER SHORT ARM 11/27/2019 12: 00:00 AM EDT [facility] ([facility]) RADEX WRIST COMPLETE MINIMUM 3 VIEWS 11/27/2019 12:00: 00 AM EDT [facility] ([facility]) Office Visit, Est Pt., Level 4 PC 11/22/2019 12:00:00 AM EST eCW1 ([facility]) Office Visit, Est Pt., Level 2 FC 11/22/2019 12:00:00 AM EST eCW1 ([facility]) RADEX WRIST COMPLETE MINIMUM 3 VIEWS 11/21/2019 12:00: 00 AM EST [facility] ([facility]) CLTX DSTL RDL FX/EPIPHYSL SEP W/MANJ WHEN PERF 020 12:00:00 AM EST [facility] ([facility] ) Office Visit, Est Pt., Level 3 PC 10/16/2019 12:00:00 AM EST eCW1 ([facility]) Results ID Date Data Source [id number] 10/06/2020 11:15:00 AM EST [facility] Therapy Department COLBY MULLER: 1940 Date: 10/06/20 [id number] Attending: Jerrell Spangler MD Physical Therapy Inpatient [facility] - Therapy Evaluation Date PT Order Received:: 10/04/20 Time:: 17:44 Date Started:: 10/06/20 Time Started:: 09:20 Diagnosis:: Pneumonia Reason for Evaluation: New Admission Rehab Diagnosis:: Difficulty walking PMH and Social Hx. Reviewed per MD, Nursing, and ER Assess.: Yes - Subjective/History Subjective:: Pt states she is used to using a walker with 2 wheels. Reports she is feeling better this AM. Hx pertinent to PT concerns:: S/p Right femoral fx ORIF (recently d/c'd on 10-01-[address] [facility]), Afib, Dementia, Myasthenia gravis Prior Level of Function:: Pt is a poor historian. Based on pt report: lives with son/sons who assistwith meals and IADL's. Using 2WW for mobility. Type of Dwelling: unclear Does the patient have pain?: No - Objective Heari ng Ability: Use of Hearing Aid - Pt remains LOWER [place] with B hearing aids. Visual Assistive Devices: None Observations: Cooperative - Unable to determine if pt confused vs unable to correctly hear questions, therefore difficulty giving appropriate response. - Transfer Sit<>Stand:: Supervision Bed<>Chair:: Stand By Assistance Supine<>Sit:: Independent Bed Mobility:: Independent - Ambulation Ambulation Assistance:: Stand By Assistance # Required to Assist:: 1 - Assist needed for IV pole as well. Assistive Devices: Standard Walker Distance (ft):: 60 Ambulation Comments: Pt uses a 2WW at home, none available at time of this Eval. Pt slowed by need to roller picker walker, however demonstrates good safety. Amb distance also limited by use of pick-up walker, not fatigue or pain. - Balance Balance comments: Pt demonstrates good static and dynamic sit. Demonstrates good static stand without UE support, and good dynamic with B UE support of walker. - Assessment Physical Therapy Impressions/Assessment: Pt is an 80 y/o female seen for PT eval to assess safety to return home. Pt demonstrates need for SBA with standing mobility at this time. Pt I'ly completed bed mobility and transfers. No further inpatient PT needs are a nticipated at this time and Supervision for home amb is recommended. - Plan of Care Short Term Goal #1: - Short Term Goal #2: - Short Term Goal #3: - correction goal #1: - Records Section Supervisor Goal #2: - correction goal #3: - - End Date Ended:: 10/06/20 Time Ended:: 09:55 Elapsed Time (minutes): 35 Elapsed Time Minutes: 35 - PT Orders Current Equipment: Walker - 2WW per pt. ROM - ROM Extremities: Leg ROM: Active and Passive ROM Reason Not Measured: Within Functional Limits Therapist Angela Mayes 10/06/20 1115 I certify this plan of care Jerrell Bowers MD 10/06/20 1336 Date Time LAST EDIT: Name Value Range Interpretation Code Description Data Poonam rce(s) Supporting Document(s) ID Date Data Source [id number] 10/06/2020 11:08:00 AM [facility] Name: COLBY MULLER : 1940 Age: 80 MR#: [id number] Admit Date: 10/04/20 Provider: Jerrell Spangler MD Room #: 291 Consulting Provider: Dictation Date: 10/06/20 Discharge Summary Discharge Summary Admit Info/Diagnoses/Course Date of service:: 10/06/20 Admission Information: Patient, COLBY MULLER, a 80 year old F, admitted on 10/04/20 12:07 by Jerrell Spangler MD for PNEUMONIA Family Wali Terrazas M.D. Discharge Date: 10/06/20 Most Recent Lab Results: 10/06/20 05:43 10/06/20 05:43 Laboratory Results Last 24 hours 10/05/20 16:45: POC Glucose 309 H 10/06/20 05:43: WBC 7.9, RBC 3.17 L, Hgb 9.1 L, Hct 30.0 L, MCV 94.6, MCH 28.7, MCHC 30.3 L, RDW 15,Plt Count 454, MPV 9.5, Immature Gran % (Auto) 1.0, Neut % (Auto) 71.2, Lymph % (Auto) 18.7, Green % (Auto) 8.5, Eos % (Auto) 0.5, Baso % (Auto) 0.1 L, Lymph # (Auto) 1.5, Abs Immat Gran (auto) 0.1, Add Manual Diff No, Absolute Neutrophils 5.6, Monocytes # 0.7, Absolute Eosinophils 0.0, Absolute Basophils 0.0 10/06/20 05:43: Sodium 142, Potassium 3.2 L, Chloride 108, Carbon Dioxide 28, Anion Gap 9, BUN 9, Creatinine 0.6, GFR Calculation Greater than 60, Glucose 80, Calcium 7.9 L, Total Bilirubin 0.2 L, AST 11, ALT 13, Alkaline Phosphatase 49, Serum Total Protein 5.0 L, Albumin 2.4 L Microbiology 10/04/20 12:40 Venous blood Blood Culture - Preliminary NO GROWTH AFTER 24 HOURS 10/04/20 12:40 Venous blood Blood Culture - Preliminary NO GROWTH AFTER 24 HOURS 10/04/20 10:45 Nasopharyngeal Influenza-Like Illness (PCR) - Final No Organisms Detected 10/04/20 10:45 Nasopharyngeal - Final INR Results 10/04/20 10:40 INR 1.1 (0.9- 1.1) Hospital Course: 80 y/o F was brought to ER c/o cough, diarrhea and abdominal pain at home. CT chest did not show any infiltrate but showed Right middle lobe 8.6 mm and medial left lung base 9.7 mm noncalcified nodules are indeterminant. CT abdomen was suggestive of colitis. Pt was started on IV Ceftriaxone for suspected pneumonia and oral Metronidazole for colitis. Over the course of treatment pt' clinical condition improved. Throughout hospital stay pt remained asymptomatic, did not have diarrhea and regular bowel movement. Pt was also evaluated by PT and was found stable to be discharged home. Pt was seen and examined at bedside on day of discharge. Pt stated that she is feeling fine and did not have any complaint. Pt was oriented to person only- at her baseline mental status. I called pt's son Mr Muller and updated him about hospital stay and instructed him to f/u with PMDfor pending stool culture result. Pt was clinically and vitally stable at the time of discharge. I spent 35 minutes in coordinating discharge. Exam Condition Vital Signs - Most Recent: Last Vital Signs Temp 97.5 F L 10/05/20 19:00 Pulse 78 10/06/20 09:38 Resp 18 10/05/20 19:00 BP 131/60 10/06/20 09:38 Pulse Ox 99 10/05/20 19:00 Ht Wt BMI Current Height 5 ft 4 in Current Weight 123 lb Body Mass Index (BMI) 21.1 Body Mass Index (BMI) Normal Classification General: positive Alert, positive Cooperative and positive No acute distress HEENT: Mucous membr. moist/pink Neck: Supple Lungs: Clear to auscultation Cardiovascular: Regular rate, Normal S1 and Normal S2 Abdomen: Normal bowel sounds and Soft; negative for Tend erness Extremities: No edema Skin: Skin warm and dry, Mucus membranes moist Neurological: Normal speech and Strength at 5/5 X4 ext Psych/Mental Status: Mood NL Discharge Plan Discharge Education Printouts: Pneumonia (DC) Medications Home Medications Xarelto 20 mg PO DAILY 10/04/20 [History] aspirin 81 mg PO HS 10/04/20 [History] calcium carbonate [Tums] 400 mg PO BID 10/04/20 [History] ergocalciferol (vitamin D2) [Vitamin D2] 1,250 mcg PO QWEEK 10/04/20 [History] esomeprazole magnesium 40 mg PO DAILY 10/04/20 [History] furosemide 40 mg PO DAILY 10/04/20 [History] metoprolol tartrate 25 mg PO BID 10/04/20 [History] mycophenolate mofetil 1,000 mg PO BID 10/04/20 [History] prednisone 20 mg PO DAILY 10/04/20 [History] pyridostigmine bromide 60 mg PO QID 10/04/20 [History] quetiapine 12.5 mg PO HS 10/04/20 [History] L. acidophilus-L. rhamnosus [Probiotic] 1 cap PO DAILY #10 cap 10/06/20 [Rx] cefpodoxime 200 mg PO BID #3 tab 10/06/20 [Rx] metronidazole 500 mg PO Q8HR #27 tab 10/06/20 [Rx] Quality Measures Tobacco Use Smoking Status: Unknown if ever smoked BMI Screening: Current Height: 5 ft 4 in Current Weight: 123 lb Body Mass Index (BMI): 21.1 Safety Future fall risk?: Patient screens as a future fall risk Diabetes Care Measures Glucose/POC Glucose: POC Glucose last 48 hrs 10/05/20 16:45 POC Glucose 309 H Glucose last 48 hrs 10/04/20 10/05/20 10/06/20 10:40 07:05 05:43 Glucose 100 92 80 Discharge Plan Admission/Discharge Dx Primary DC Diagnosis: Improved suspected pneumonia and colitis Condition Condition: Good Discharge Detail Disposition: Home, Self-Care Med Rec New Prescriptions: New Probiotic 15 billion cell capsule 1 cap PO DAILY Qty: 10 RF: 0 metronidazole 500 mg Tablet 500 mg PO Q8HR Qty: 27 RF: 0 cefpodoxime 200 mg tablet 200 mg PO BID Qty: 3 RF: 0 Continued prednisone 20 mg tablet 20 mg PO DAILY RF: 0 quetiapine 25 mg Tablet 12.5 mg PO HS RF: 0 furosemide 40 mg Tablet 40 mg PO DAILY RF: 0 mycophenolate mofetil 500 mg Tablet 1,000 mg PO BID RF: 0 pyridostigmine bromide 60 mg Tablet 60 mg PO QID RF: 0 calcium carbonate [Tums] 200 mg calcium (500 mg) Tablet,Chewable 400 mg PO BID RF: 0 aspirin 81 mg Tablet 81 mg PO HS RF: 0 ergocalciferol (vitamin D2) [Vitamin D2] 1,250 mcg (50,000 unit) Capsule 1,250 mcg PO QWEEK RF: 0 metoprolol tartrate 25 mg Tablet 25 mg PO BID RF: 0 Xarelto 20 mg tablet 20 mg PO DAILY RF: 0 esomeprazole magnesium 40 mg Capsule,Delayed Release(Dr/Ec) 40 mg PO DAILY RF: 0 Discharge Education Printouts: Pneumonia (DC) Follow Up Visit/Referrals: Wali Ramsey [Primary Care Provider] - 1 Week (We will call you with an appointment) Medications Medication reconciliation performed by provider at discharge: Yes Follow Up Care/Instructions Diet/Activity/Wound Care..: f/u with PMD for stool culture result f/u with PMD for pulmonary referral for CT finding of "Right middle lobe 8.6 mm and medial left lungbase 9.7 mm noncalcified nodules" take medication as prescribed *Discharge Patient* Discharge Orders: Discharge Order (Routine); Ordered 10/06/20 Ordered By: Jerrell Spangler Discharge Date/Time: 10/06/20 12:50 Dictated by: <Electronically signed by Jerrell Spangler MD> Jerrell Spangler MD 10/06/20 1457 Jerrell Spangler MD SIGNATURE DA Report Cosigners: D: MARIETTA 10/06/20 1108 T: MARIETTA 10/06/208 CC: Name Value Range Interpretation Code Description Data Poonam rce(s) Supporting Document(s) ID Date Data Source [id number] 10/06/2020 06:14:00 AM EST [facility] Name Value Range Interpretation Code Description Data Poonam rce(s) Supporting Document(s) Leukocytes [#/volume] in Blood by Automated count 7.9 10*3/uL 4.45-10 .71 N [facility] Erythrocytes [#/volume] in Blood by Automated count 3.17 10*6/uL 4.20-5.40 Below low normal [facility] Hemoglobin [Moles/volume] in Blood 9.1 g/dL 10.7-15.4 Below low no rmal [facility] Hematocrit [Volume Fraction] of Blood by Automated count 30.0 % 37-47 Below low normal [facility] Erythrocyte mean corpuscular volume [Ent itic volume] in Cord blood by Automated count 94.6 fL 80-96 N [facility] Erythrocyte mean corpuscular hemoglobin [Entitic mass] by Automated count 28.7 pg 27-31 N [facility] l Erythrocyte mean corpuscular hemoglobin concentration [Mass/volume] in Cord blood 30.3 g/dL 33-37 Below low normal [facility] Erythrocyte distribution width [Entitic volume] by Automated count 15 % 11-15 N [facility] Platelets [#/volume] in Blood by Automated count 454 10*3/uL 130-472 N [facility] Platelet mean volume [Entitic volume] in Blood 9.5 fL 9.1-13.1 N [facility] Neutrophils/100 leukocytes in Blood by Automated count 71.2 % 41- 77 N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 supportive care 6. h/o ambulatory dysfunction pt uses a walker at home PT eval fall precautions 7. in view of h/o diverticulitis, c/o abdominal pain and diarrhea will get CT abdomen/pelvis will f/u stool studies 8. h/o HTN will continue home med 9. Hypokalemia will replete as needed will get medical records from PMD DVT ppx- Xarelto Dictated by: <Electronically signed by Jerrell Spangler MD> Jerrell Spangler MD 10/04/201809 Jerrell Spangler MD SIGNATURE DA Report Cosigners: D: MARIETTA 10/04/201621 T: MARIETTA 10/04/201621 CC: Name Value Range Interpretation Code Description Data Poonam rce(s) Supporting Document(s) ID Date Data Source [id number] 10/04/2020 01:06:00 PM [facility] Special Instructions: Lab may order repe at test if initial test elevatedPhysician If elevated, reflex second test in 4-6 hrs Name Value Range Interpretation Code Description Data Poonam rce(s) Supporting Document(s) Lactic w Rfx (if elevated) 2.0 mmol/L 0.5-2.0 [facility] ID Date Data Source [id number] 10/09/2020 12:44:00 PM [facility] Special Instructions: Lab may order repe at test if initial test elevatedPhysician If elevated, reflex second test in 4-6 hrs Name Value Range Interpretation Code Description Data Poonam rce(s) Supporting Document(s) Bacteria identified in Blood by Culture [facility] NO GROWTH AFTER 5 DAYS ID Date Data Source [id number] 10/04/2020 10:59:00 AM [facility] [address] [place] [address] [phone] NAME SEX PT STATUS ACCOUNT NUMBER COLBY MULLER [facility] ER [id number] ORDERING PHYSICIAN LOCATION MEDICAL RECORD NO. Max Coffey MD ER [id number] ATTENDING PHYSICIAN DATE OF DATE OF EXAM/TIME [...] Trans Dt/Tm: Trans by: DT Prt Dt/Tm: [id number]: Total DLP = 0.00 mGy-cm Fluoroscopy Time (in secs): Name Value Range Interpretation Code Description Data Poonam rce(s) Supporting Document(s) ID Date Data Source [id number] 10/04/2020 10:53:00 AM [facility] ED Physician Documentation NAME: COLBY MULLER : 1940 AGE: 80 MR#: [id number] SERVICE DATE: 10/04/[address]: Max Coffey MD PRIMARY CARE DR: Wali Ramsey M.D. ROOM#: 291 HPI (Adult, General) General Chief Complaint: Multi system (Adult) Stated Complaint: WEAKNESS Resident LTC, travel outisde home, exposure to hot tubs:: No Time Seen by Provider: 10/04/20 10:00 Source: patient Exam Limitations: no limitations History of Present Illness Narrative: 80 yo woman with mild dementia, brought to the ER today by family due to weakness for the past few days associated with diarrhea and SOB. The patient says shehas diarrhea for the past 2 weeks. She denies cough but is actively coughing in the ER. Allergies/Home Meds Allergies Allergy/AdvReac Type Severity Reaction Status Date / Time Antihistamines - Alkylamine Allergy Rash Verified 10/04/20 16:05 cephalexin [From Keflex] Allergy Anaphylaxis Verified 10/04/20 16:05 clarithromycin [From Biaxin] Allergy Nausea/Vomi Verified 10/04/20 16:05 t/Gastric doxycycline Allergy Nausea/Vomi Verified 10/04/20 16:05 t/Gastric famotidine [From Pepcid] Allergy Nausea/Vomi Verified 10/04/20 16:05 t/Gastric gabapentin Allergy Rash Verified 10/04/20 16:05 Iodinated Contrast Media Allergy Anaphylaxis Verified 10/04/20 16:05 levofloxacin [From Levaquin] Allergy Hives Verified 10/04/20 16:05 meloxicam [From Mobic] Allergy Nausea/Vomi Verified 10/04/20 16:05 t/Gastric nitrofurantoin Allergy Other, not Verified 10/04/20 16:05 listed Penicillins Allergy Anaphylaxis Verified 10/04/20 16:05 procaine [From Novocain] Allergy Verified 10/04/20 16:05 Sulfa (Sulfonamide Allergy Hives Verified 10/04/20 16:05 Antibiotics) Home Medications Medication Instructions Recorded Confirmed Last Taken Type aspirin 81 mg PO HS 10/04/20 10/04/20 10/03/20 21:00 History calciu m carbonate [Tums] 400 mg PO BID 10/04/20 10/04/20 10/04/20 History ergocalciferol (vitamin D2) 1,250 mcg PO QWEEK 10/04/20 10/04/20 10/03/20 History [Vitamin D2] esomeprazole magnesium 40 mg PO DAILY 10/04/20 10/04/20 10/04/20 08:00 History furosemide 40 mg PO DAILY 10/04/20 10/04/20 10/04/20 History metoprolol tartrate 25 mg PO BID 10/04/20 10/04/20 10/04/20 08:00 History mycophenolate mofetil 1,000 mg PO BID 10/04/20 10/04/20 10/04/20 08:00 History prednisone 20 mg PO DAILY 10/04/20 10/04/20 10/04/20 08:00 History pyridostigmine bromide 60 mg PO QID 10/04/20 10/04/20 10/04/20 08:00 History quetiapine 12.5 mg PO HS 10/04/20 10/04/20 10/03/20 History rivaroxaban [Xarelto] 20 mg PO DAILY 10/04/20 10/04/20 10/04/20 08:00 History PMH (from Triage) Patient Medical History PMH Reviewed/Updated as Needed: Yes PMH/PSH from Triage: Medical History (Updated 10/04/20 @ 12:34 by Alyson Higgins) Dementia (Medical) F03.90 Diverticula of colon (Medical) K57.30 Myasthenia gravis (Medical) G70.00 PFSH Medical History Dementia Diverticula of colon Myasthenia gravis Social History Does the Patient have a Healthcare Proxy: No (PNP) Does Patient have a DNR?: No (PNP) Does Patient have a Living Will?: No Hx Recent Travel (where): No Smoking Status: Unknown if ever smoked Sickle cell Sickle Cell Screening:: Not indicated ROS Review of Systems Limitations: ROS limited due to patients medical condition Constitutional: Reports weakness; Denies fever Respiratory: Reports cough and SOB Gastrointestinal: Reports diarrhea; Denies vomiting Skin/Breasts: Denies rash Allergic/Immunologic: Denies rash Physical Exam General Physical Exam Narrative: Very thin elderly woman, awake and alert, sitting upright on the stretcher, coughing noted but no respiratory distress Limitations: no limitations General appearance: alert and in no apparent distress Head Head exam: Present atraumatic, normocephalic and normal inspection Eye Eye exam: Present normal apperance and EOMI; Absent scleral icterus and conjunctival injection ENT ENT exam: Present mucous membranes dry; Absent normal exam Neck Neck exam: Present normal inspection and tenderness; Absent full ROM Respiratory Respiratory exam: Present normal lung sounds bilaterally; Absent respiratory distress, wheezes, rales and rhonchi Cardiovascular Cardiovascular Exam: Present regular rate and normal rhythm GI/Abdominal GI/Abdominal exam: Present Abd soft, bowel sounds present all quadrents; Absent tenderness Extremities Exam Extremities exam: Present normal inspection and full ROM; Absent tenderness Back Exam Back exam: Present normal inspection and full ROM; Absent tenderness Neurological Exam Neurological exam: Present alert; Absent oriented X3 and motor sensory deficit Psychiatric Psychiatric exam: Present normal affect and normal mood Skin Skin exam: Present warm, dry, intact and normal color Vital Signs Vital Signs: Vital Signs 10/04/20 09:58 10/04/20 14:35 Temperature 102.2 F H 98.7 F Pulse Rate 72 75 Respiratory Rate 16 18 Blood Pressure 104/54 94/55 O2 Sat by Pulse Oximetry 98 100 MDM (comprehensive) Lab Data Labs: 10/04/20 10:40 10/04/20 10:40 Laboratory Results Last 24 hours 10/04/20 10:40: WBC 11.5 H, RBC 3.61 L, Hgb 10.3 L, Hct 33.9 L, MCV 93.9, MCH 28.5, MCHC 30.4 L, RDW 15, Plt Count 430, MPV 9.1, Immature Gran % (Auto) 1.3, Neut % (Auto) 87.0 H, Lymph % (Auto) 6.8 L, Green % (Auto) 4.5, Eos % (Auto) 0.1, Baso % (Auto) 0.3 L, Lymph # (Auto) 0.8, Abs Immat Gran (auto) 0.2 H, Add Manual Diff Manual diff added, Total Counted 100, Neutrophils (Manual) 83 H, Absolute Neutrophils 10.0 H, Band Neutrophils 2, Lymphocytes (Manual) 10 L, Monocytes (Manual) 4, Monocytes # 0.5, Eosinophils (Manual) 1, Absolute Eosinophils 0.0, Absolute Basophils 0.0, Platelet Estimate Appears normal, RBC Morphology Appears normal 10/04/20 10:40: PT 11.4, INR 1.1, PTT ([place]) 25.5 10/04/20 10:40: Sodium 137, Potassium 3.4 L, Chloride 104, Carbon Dioxide 25, Anion Gap 11, BUN 10, Creatinine 0.8, GFR Calculation Greater than 60, Glucose 100, Calcium 7.7 L, Total Bilirubin 0.3, AST 9, ALT 16, Alkaline Phosphatase 55, Troponin I Less than 0.015, Serum Total Protein 5.5 L, Albumin 2.5 L Microbiology 10/04/20 10:45 Nasopharyngeal Influenza-Like Illness (PCR) - Final No Organisms Detected 10/04/20 10:45 Nasopharyngeal - Final Radiology Data Radiology results: report reviewed Medical Decision Making Free Text/Narative:: The patient was evaluated for constitutional symptoms. The PE was significant for elevated temperature and dry oral mucosa. CXR showed b/l infiltrates. COVID testing was negative. The patient will be started on Ceftriaxone and admitted to the medical service for CAP. Plan Plan Plan: Admit to Medical Service Plan of care: Plan of care discussed with patient and or family, Patient encouraged to ask questions about plan and Patient agrees with plan of care Visit Medications Administered ED medications:: Medications Discontinued Medications Generic Name Dose Route Start Last Admin Trade Name Freq PRN Reason Stop Dose Admin Ceftriaxone Sodium/Dextrose 1 gm in 50 mls @ 100 mls/hr 10/04/20 11:23 10/04/20 12:14 Rocephin 1gm (Premix) Piggyback IV 10/04/20 11:52 Infused ONCE ONE Infusion Sodium Chloride 1,000 mls @ 999 mls/hr 10/04/20 11:23 10/04/20 11:44 Ns 0.9% IV 10/04/20 12:23 999 mls/hr .Q1H1M ONE Administration Discharge Plan Admission/Discharge Dx Primary (Admit) Diagnosis: CAP ED Provider: Max Coffey ED Status: Discharge to ADM Time Seen by Provider: 10/04/20 10:00 Triaged At: 10/04/20 09:58 Condition Condition: Stable Discharge Detail Disposition: Admit to [facility] Medications Medication reconciliation performed by provider at discharge: Yes *Discharge Patient* Discharge Orders: Provider hand off (NOW); Ordered 10/04/20 Ordered By: Max Coffey Discharge Date/Time: 10/04/20 14:51 Interventions Interventions: ED Admission/Handoff Last Done: 10/04/20 14:52 ED General Adult Last Done: 10/04/20 11:22 Report Signers: <Electronically signed by Max Coffey MD> Max Coffey MD 10/04/20 1716 Max Coffey MD SIGNATURE DA Report Cosigners: D: YADIRA 10/04/20 1053 T: YADIRA 10/04/20 1053 CC: Wali Ramsey M.D. Name Value Range Interpretation Code Description Data Poonam rce(s) Supporting Document(s) ID Date Data Source [id number] 10/04/2020 11:17:00 AM [facility] Diana Marie is a rapid, automated qualita tive anddifferentiation of Influenza type A,B and QPGO-CIF-9HCFD-RT-PCR testNORMAL VALUE IS "NOT DETECTED".Limitations of the diana marie Influenza A/B & PKXH-BYB-2wqwdh method.Modifications to manufacturers recommendation and proceduresmay alter performance of the test.Negative results do not preclude Influenza A,B or SARS- DUB2btetizxqgt and should not be used as the sole basis fortreatment or other management decisions. Results from theCobas Marie Influenza A/B & COV2 should be interpeted inconjunction with other laboratory and clinical dataavailable to the clinician.False negative results may occur if a specimen is improperlycollected, transported or handled. False negatives may occurif inadequate numbers of organisms are present in thespecimen.This test has not been evaluated for patients without signsand systoms of influenza and SARS-COV-2 infection.This assay has not been evaluated for patients receivingintranasal administered influenza vaccine.This assay has not been evaluated for immunocompromisedindividuals.This test cannot rule out diseases caused by other bacterialor viral pathogens.SARS-CoV-2 RNA Resp Ql VEE+probe Name Value Range Interpretation Code Description Data Poonam rce(s) Supporting Document(s) ID Date Data Source [id number] 10/04/2020 11:17:00 AM [facility] Diana Marie is a rapid, automated qualita tive anddifferentiation of Influenza type A,B and ILSI-BQK-7OFCN-RT-PCR testNORMAL VALUE IS "NOT DETECTED".Limitations of the diana marie Influenza A/B & DJVE-GPP-2cjyfp method.Modifications to manufacturers recommendation and proceduresmay alter performance of the test.Negative results do not preclude Influenza A,B or SARS- GAR9iibmlnraoi and should not be used as the sole basis fortreatment or other management decisions. Results from theCobas Marie Influenza A/B & COV2 should be interpeted inconjunction with other laboratory and clinical dataavailable to the clinician.False negative results may occur if a specimen is improperlycollected, transported or handled. False negatives may occurif inadequate numbers of organisms are present in thespecimen.This test has not been evaluated for patients without signsand systoms of influenza and SARS-COV-2 infection.This assay has not been evaluated for patients receivingintranasal administered influenza vaccine.This assay has not been evaluated for immunocompromisedindividuals.This test cannot rule out diseases caused by other bacterialor viral pathogens.SARS-CoV-2 RNA Resp Ql VEE+probe Name Value Range Interpretation Code Description Data Poonam rce(s) Supporting Document(s) Extended hours FLU/COV2 NAAT [facility] ID Date Data Source [id number] 10/04/2020 11:08:00 AM [facility] @10/04/20 1101: MANUAL DIFF added. RFLXG = DIFF. @10/04/20 1101: MANUAL DIFF added. RFLXG = DIFF. Name Value Range Interpretation Code Description Data Poonam rce(s) Supporting Document(s) Prothrombin Time (Patient) 11.4 s 9.6-12.3 N [facility] INR 1.1 0.9-1.1 N [facility] THE INR IS OPERATIONALLY DEFINED FOR EMERSON SH PLASMA FROMPATIENTS STABILIZED ON ORAL ANTICOAGULANTS.ROUTINE ANTICOAGULANT THERAPY 2.0-3.0RECURRENT SYSTEMIC EMBOLISM/HEART VALVE REPLACEMENT 2.5-3.5 aPTT.lupus sensitive (LA screen) 25.5 s 22.7-31.6 N [facility] ID Date Data Source [id number] 10/04/2020 11:14:00 AM EST [facility] @10/04/20 1101: MANUAL DIFF added. RFLXG = DIFF. @10/04/20 1101: MANUAL DIFF added. RFLXG = DIFF. Name Value Range Interpretation Code Description Data Poonam rce(s) Supporting Document(s) Urea nitrogen [Mass/volume] in Serum or Plasma 10 mg/dL 9-23 [facility] Sodium [Moles/volume] in Serum or Plasma 137 mmol/L 132-146 [facility] Potassium [Moles/volume] in Serum or Plasma 3.4 mmol/L 3.5-5.5 Below low normal [facility] Chloride [Moles/volume] in Serum or Plasma 104 mmol/L 99-109 [facility] Carbon dioxide, total [Moles/volume] in Serum or Plasma 25 mmol/L 20 -31 [facility] Anion gap in Serum or Plasma 11 mmol/L 8-16 [facility] Glucose [Mass/volume] in Serum or Plasma 100 mg/dL 74-106 [facility] Creatinine 0.8 mg/dL 0.5-1.1 [facility] Glomerular filtration rate/1.73 sq M.pre dicted [Volume Rate/Area] in Serum or Plasma Greater Than 60 ABOVE 60 [facility] Alanine aminotransferase [Enzymatic acti vity/volume] in Serum or Plasma by With P-5'-P 16 U/L 10-49 [facility] ital Aspartate aminotransferase [Enzymatic ac tivity/volume] in Serum or Plasma by With P-5'-P 9 U/L 0-33 [facility] Alkaline phosphatase [Enzymatic activity/volume] in Serum or Plasma 55 U/L 45-129 [facility] Calcium [Mass/volume] in Serum or Plasma 7.7 mg/dL 8.5-10.1 Below low normal [facility] Bilirubin.total [Mass/volume] in Serum or Plasma 0.3 mg/dL 0.3-1.2 [facility] Albumin [Mass/volume] in Serum or Plasma by Bromocresol purple (BCP) dye binding method 2.5 g/dL 3.2-4.8 Below low normal [facility] Protein [Mass/volume] in Serum or Plasma 5.5 g/dL 5.7-8.2 Below low normal [facility] ID Date Data Source [id number] 10/04/2020 11:37:00 AM EST [facility] @10/04/20 1101: MANUAL DIFF added. RFLXG = DIFF. @10/04/20 1101: MANUAL DIFF added. RFLXG = DIFF. Name Value Range Interpretation Code Description Data Poonam rce(s) Supporting Document(s) Leukocytes [#/volume] in Blood by Automated count 11.5 10*3/uL 4.45-10.71 Above high normal [facility] Erythrocytes [#/volume] in Blood by Automated count 3.61 10*6/uL 4.20-5.40 Below low normal [facility] Hemoglobin [Moles/volume] in Blood 10.3 g/dL 10.7-15.4 Below low no rmal [facility] Hematocrit [Volume Fraction] of Blood by Automated count 33.9 % 37-47 Below low normal [facility] Erythrocyte mean corpuscular volume [Ent itic volume] in Cord blood by Automated count 93.9 fL 80-96 [facility] Erythrocyte mean corpuscular hemoglobin [Entitic mass] by Automated count 28.5 pg 27-31 [facility] Erythrocyte mean corpuscular hemoglobin concentration [Mass/volume] in Cord blood 30.4 g/dL 33-37 Below low normal [facility] Erythrocyte distribution width [Entitic volume] by Automated count 15 % 11-15 [facility] Platelets [#/volume] in Blood by Automated count 430 10*3/uL 130-472 [facility] Platelet mean volume [Entitic volume] in Blood 9.1 fL 9.1-13.1 [facility] Neutrophils/100 leukocytes in Blood by Automated count 87.0 % 41-77 Above high normal [facility] Neutrophils [#/volume] in Blood by Automated count 10.0 U 1.7-7.6 Above high normal [facility] Lymphocytes/100 leukocytes in Blood by Automated count 6.8 % 14-46 Below low normal [facility] Lymphocytes [#/volume] in Blood by Automated count 0.8 U 0.6-4.6 [facility] Monocytes/100 leukocytes in Blood by Automated count 4.5 % 4-12 [facility] Monocytes [#/volume] in Blood by Automated count 0.5 U 0.2-1.2 [facility] Eosinophils/100 leukocytes in Blood by Automated count 0.1 % 0-7 [facility] Eosinophils [#/volume] in Blood by Automated count 0.0 U 0.0-0.5 [facility] Basophils/100 leukocytes in Blood by Automated count 0.3 % 0.4-1.3 Below low normal [facility] Basophils [#/volume] in Blood by Automated count 0.0 U 0.0-0.2 [facility] NUCLEATED RED BLOOD CELL 0 % [facility] NUCLEATED RED BLOOD CELL# [address] [facility] Immature granulocytes [Presence] in Blood by Automated count 0-2 [facility] Immature granulocytes [#/volume] in Blood by Automated count 0.2 U 0-0.1 Above high normal [facility] Manual Differential panel - Blood Manual Diff Added [facility] ID Date Data Source [id number] 10/04/2020 11:14:00 AM EST [facility] @10/04/20 1101: MANUAL DIFF added. RFLXG = DIFF. @10/04/20 1101: MANUAL DIFF added. RFLXG = DIFF. Name Value Range Interpretation Code Description Data Poonam rce(s) Supporting Document(s) Troponin I.cardiac [Mass/volume] in Serum or Plasma Less Than 0.015 0.00-0.09 [facility] Less than 0.09 NG/ML Negative0.10 - 0.77 NG/ML High Risk0.78 NG/ML or Greater PositiveThe WHO defined the cutoff (definition for diagnosis of [place])for this method as 0.78 ng/ml. ID Date Data Source [id number] 10/04/2020 11:37:00 AM EST [facility] @10/04/20 1101: MANUAL DIFF added. RFLXG = DIFF. @10/04/20 1101: MANUAL DIFF added. RFLXG = DIFF. Name Value Range Interpretation Code Description Data Poonam rce(s) Supporting Document(s) Cells counted [#] 100 [facility] Neutrophils [#/volume] in Blood by Manual count 83 % 41-77 Above high normal [facility] Band form neutrophils [#/volume] in Blood by Manual count 2 % 0-5 [facility] Lymphocytes [#/volume] in Blood by Manual count 10 % 14-46 Below low normal [facility] Monocytes [#/volume] in Blood by Manual count 4 % 4-12 [facility] Eosinophils [#/volume] in Blood by Manual count 1 % 0-7 [facility] Platelets [#/volume] in Blood by Estimate APPEARS NORMAL NORMAL [facility] Morphology [Interpretation] in Blood Narrative APPEARS NORMAL NORMAL [facility] ID Date Data Source [id number] 10/04/2020 12:00:00 [facility] Name Value Range Interpretation Code Description Data Poonam rce(s) Supporting Document(s) SARS-CoV2 Rapid PCR Not Detected [facility] This lab was ordered by [facility] and reported by [facility]. ID Date Data Source [id number] 09/24/2020 07:36:00 AM EST [facility] Name Value Range Interpretation Code Description Data Poonam rce(s) Supporting Document(s) SARS coronavirus 2 RNA Not Detected [facility] This lab was ordered by [facility] and reported by [facility]. ID Date Data Source [id number] 09/17/2020 09:00:00 AM EST [facility] Name Value Range Interpretation Code Description Data Poonam rce(s) Supporting Document(s) SARS coronavirus 2 RNA [facility] This lab was ordered by [facility] and reported by [facility]. ID Date Data Source [id number] 09/10/2020 10:00:00 AM EST [facility] Name Value Range Interpretation Code Description Data Poonam rce(s) Supporting Document(s) SARS coronavirus 2 RNA [facility] This lab was ordered by [facility] and reported by [facility]. ID Date Data Source [id number] 09/03/2020 07:30:00 AM EST [facility] Name Value Range Interpretation Code Description Data Poonam rce(s) Supporting Document(s) SARS coronavirus 2 RNA [facility] This lab was ordered by [facility] and reported by [facility]. ID Date Data Source [id number] 08/27/2020 06:15:00 AM EST [facility] Name Value Range Interpretation Code Description Data Poonam rce(s) Supporting Document(s) SARS coronavirus 2 RNA [facility] This lab was ordered by [facility] and reported by [facility]. ID Date Data Source [id number] 08/20/2020 10:10:00 AM EST [facility] Name Value Range Interpretation Code Description Data Poonam rce(s) Supporting Document(s) SARS coronavirus 2 RNA [facility] This lab was ordered by [facility] and reported by [facility]. ID Date Data Source [id number] 08/13/2020 11:00:00 AM EST [facility] Name Value Range Interpretation Code Description Data Poonam rce(s) Supporting Document(s) SARS coronavirus 2 RNA [facility] This lab was ordered by [facility] and reported by [facility]. ID Date Data Source [id number] 08/06/2020 08:00:00 AM EST [facility] Name Value Range Interpretation Code Description Data Poonam rce(s) Supporting Document(s) SARS coronavirus 2 RNA [facility] This lab was ordered by [facility] and reported by [facility]. ID Date Data Source [id number] 07/31/2020 11:55:00 AM EST [facility] Name Value Range Interpretation Code Description Data Poonam rce(s) Supporting Document(s) SARS coronavirus 2 RNA [facility] This lab was ordered by [facility] and reported by [facility]. ID Date Data Source [id number] LEVEL 07/18/2020 04:55:10 AM EDT eCW1 ([facility]) Name Value Range Interpretation Code Description Data Poonam rce(s) Supporting Document(s) 2.3 MAGNESIUM LEVEL eCW1 ([facility]) ID Date Data Source C REACTIVE PROTEIN QUANTITATIV (At [facility]) 07/18/2020 04:55 :07 AM EDT eCW1 ([facility]) Name Value Range Interpretation Code Description Data Poonam rce(s) Supporting Document(s) 0.72 C REACTIVE PROTEIN QUANTITATIV eCW1 ([facility]) ID Date Data Source Comprehensive Metabolic Profile (CMP) 07/18/2020 04:55:05 AM EDT eCW1 ([facility]) Name Value Range Interpretation Code Description Data Poonam rce(s) Supporting Document(s) 10 BLOOD UREA NITROGEN eCW1 ([facility]) 90 GLUCOSE, FASTING eCW1 ([facility]) 142 SODIUM LEVEL eCW1 ([facility]) > 60.0 GLOMERULAR FILTRATION RATE eCW 1 ([facility]) 0.80 CREATININE FOR GFR eCW1 ([facility]) 34 CARBON DIOXIDE LEVEL eCW1 ([facility]) 104 CHLORIDE LEVEL eCW1 ([facility]) 8.7 CALCIUM LEVEL eCW1 ([facility]) 3.5 POTASSIUM SERUM eCW1 ([facility]) 52 ALKALINE PHOSPHATASE eCW1 ([facility]) 11 AST/SGOT eCW1 ([facility]) 14 ALT/SGPT eCW1 ([facility]) 0.3 BILIRUBIN,TOTAL eCW1 ([facility]) 1.0 ALBUMIN/GLOBULIN RATIO eCW1 ([facility]) 2.9 ALBUMIN eCW1 ([facility]) 5.7 TOTAL PROTEIN eCW1 ([facility]) ID Date Data Source CBC with Differential 07/18/2020 02:29:56 AM EDT eCW1 ([facility]) Name Value Range Interpretation Code Description Data Poonam rce(s) Supporting Document(s) 10.5 WHITE BLOOD COUNT eCW1 ([facility]) 4.40 RED BLOOD COUNT eCW1 ([facility]) 86.4 MEAN CORPUSCULAR VOLUME eCW1 ( [facility]) 11.1 HEMOGLOBIN eCW1 ([facility]) 38.0 HEMATOCRIT eCW1 ([facility]) 20.8 RED CELL DISTRIBUTION WIDTH eC W1 ([facility]) 25.2 MEAN CORPUSCULAR HEMOGLOBIN eC W1 ([facility]) 414 PLATELET COUNT, AUTOMATED eCW1 ([facility]) 29.2 MEAN CORPUSCULAR HGB CONC eCW1 ([facility]) 8.3 LYMPH % eCW1 ([facility]) 0.5 EOS % eCW1 ([facility]) 89.0 NEUTROPHILS % eCW1 ([facility]) 1.1 MONO % eCW1 ([facility]) 0.3 BASO % eCW1 ([facility]) 0.9 LYMPH # eCW1 ([facility]) 9.3 NEUTROPHILS # eCW1 ([facility]) 0.1 MONO # eCW1 ([facility]) 0.1 EOS # eCW1 ([facility]) 0.0 BASO # eCW1 ([facility]) ID Date Data Source H PYLORI SERUM QUANT IgG LAST 07/04/2020 03:11:07 AM EDT eCW1 ([facility]) Name Value Range Interpretation Code Description Data Poonam rce(s) Supporting Document(s) 0.18 H PYLORI SERUM QUANT IgG LAST e CW1 ([facility]) ID Date Data Source IBD SEROLOGY PANEL 07/04/2020 03:11:03 AM EDT eCW1 ([facility]) Name Value Range Interpretation Code Description Data Poonam rce(s) Supporting Document(s) IBD SEROLOGY PANEL eCW1 ([facility]) ID Date Data Source NT-PRO BNP 07/01/2020 07:56:13 AM EDT eCW1 ([facility]) Name Value Range Interpretation Code Description Data Poonam rce(s) Supporting Document(s) 559 NT-PRO BNP eCW1 ([facility]) ID Date Data Source Reticulocyte Count [employer]mex 07/01/2020 07:56:04 AM EDT eCW1 ([facility]) Name Value Range Interpretation Code Description Data Poonam rce(s) Supporting Document(s) 0.8 RETICULOCYTE % eCW1 ([facility]) ID Date Data Source VITAMIN [id number] 11/22/2019 12:00:00 AM EST eCW1 ([facility]) Name Value Range Interpretation Code Description Data Poonam rce(s) Supporting Document(s) 96.4 30.0-100.0 TOTAL 25(OH) VITAMIN D eC W1 ([facility]) ID Date Data Source PTH INTACT 11/22/2019 12:00:00 AM EST eCW1 ([facility]) Name Value Range Interpretation Code Description Data Poonam rce(s) Supporting Document(s) 216.7 18.5-88.0 PTH INTACT eCW1 ([facility]) ID Date Data Source [id number] 11/22/2019 12:00:00 AM EST eCW1 ([facility]) Name Value Range Interpretation Code Description Data Poonam rce(s) Supporting Document(s) Hemoglobin A1c/Hemoglobin.total in Blood 5.8 HEMOGLOBIN A1c eCW1 ([facility]) ID Date Data Source [id number] 10/01/2019 02:04:00 PM EST [facility] ([facility]) Name Value Range Interpretation Code Description Data Poonam rce(s) Supporting Document(s) Creatinine [Mass/volume] in Blood 1.1 0.6-1.3 [facility] ([facility]) ID Date Data Source [id number] 10/01/2019 02:04:00 PM EST [facility] ([facility]) Name Value Range Interpretation Code Description Data Poonam rce(s) Supporting Document(s) Urea nitrogen [Mass/volume] in Blood 15 8-26 [facility] ([facility]) ID Date Data Source [id number] 10/01/2019 02:04:00 PM EST [facility] ([facility]) Name Value Range Interpretation Code Description Data Poonam rce(s) Supporting Document(s) Carbon dioxide, total [Moles/volume] in Blood 30.0 23.0-27.0 [facility] ([facility]) ID Date Data Source [id number] 10/01/2019 02:04:00 PM EST [facility] ([facility] ) Name Value Range Interpretation Code Description Data Poonam rce(s) Supporting Document(s) Chloride [Moles/volume] in Blood 100 98-109 [facility] ([facility]) ID Date Data Source [id number] 10/01/2019 02:04:00 PM EST [facility] ([facility] ) Name Value Range Interpretation Code Description Data Poonam rce(s) Supporting Document(s) Calcium.ionized [Moles/volume] in Blood 4.2 4.5-5.3 [facility] ([facility] ) ID Date Data Source [id number] 10/01/2019 02:04:00 PM EST [facility] ([facility] ) Name Value Range Interpretation Code Description Data Poonam rce(s) Supporting Document(s) Potassium [Moles/volume] in Blood 3.6 3.5-5.1 [facility] ([facility] ) ID Date Data Source [id number] 10/01/2019 02:04:00 PM EST [facility] ([facility] ) Name Value Range Interpretation Code Description Data Poonam rce(s) Supporting Document(s) Sodium [Moles/volume] in Blood 139 136-145 [facility] ([facility] ) ID Date Data Source [id number] 10/01/2019 02:04:00 PM EST [facility] ([facility] ) Name Value Range Interpretation Code Description Data Poonam rce(s) Supporting Document(s) Glucose [Mass/volume] in Blood 107 70-105 [facility] ([facility]) ID Date Data Source [id number] 10/01/2019 02:04:00 PM EST [facility] ([facility] ) Name Value Range Interpretation Code Description Data Poonam rce(s) Supporting Document(s) Hematocrit [Volume Fraction] of Blood 35.0 38.0-51.0 [facility] ([facility]) ID Date Data Source [id number] 10/01/2019 01:58:00 PM EST [facility] ([facility] ) Name Value Range Interpretation Code Description Data Poonam rce(s) Supporting Document(s) Basophils/100 leukocytes in Blood by Automated count 0.2 0.0-1 .0 [facility] ([facility]) ID Date Data Source [id number] 10/01/2019 01:58:00 PM EST [facility] ([facility]) Name Value Range Interpretation Code Description Data Poonam rce(s) Supporting Document(s) Eosinophils/100 leukocytes in Blood by Automated count 0.2 0.0 -3.0 [facility] ([facility]) ID Date Data Source [id number] 10/01/2019 01:58:00 PM EST [facility] ([facility]) Name Value Range Interpretation Code Description Data Poonam rce(s) Supporting Document(s) Monocytes/100 leukocytes in Blood by Automated count 5.5 0.0-5 .0 [facility] ([facility]) ID Date Data Source [id number] 10/01/2019 01:58:00 PM EST [facility] ([facility]) Name Value Range Interpretation Code Description Data Poonam rce(s) Supporting Document(s) Lymphocytes/100 leukocytes in Blood by Automated count 9.6 24. 0-44.0 [facility] ([facility]) ID Date Data Source [id number] 10/01/2019 01:58:00 PM EST [facility] ([facility]) Name Value Range Interpretation Code Description Data Poonam rce(s) Supporting Document(s) Neutrophils [#/volume] in Blood by Automated count 84.0 36.0-66 .0 [facility] ([facility]) ID Date Data Source [id number] 10/01/2019 01:58:00 PM EST [facility] ([facility]) Name Value Range Interpretation Code Description Data Poonam rce(s) Supporting Document(s) Platelets [#/volume] in Blood by Automated count 414 150-450 [facility] ([facility]) ID Date Data Source [id number] 10/01/2019 01:58:00 PM EST [facility] ([facility]) Name Value Range Interpretation Code Description Data Poonam rce(s) Supporting Document(s) Erythrocyte distribution width [Ratio] by Automated count 16.9 11.5-14.5 [facility] ([facility]) ID Date Data Source [id number] 10/01/2019 01:58:00 PM EST [facility] ([facility]) Name Value Range Interpretation Code Description Data Poonam rce(s) Supporting Document(s) Erythrocyte mean corpuscular hemoglobin concentration [Mass/volume] by Automated count 30.1 32.0-36.5 [facility] ID Date Data Source [id number] 10/01/2019 01:58:00 PM EST [facility] ([facility]) Name Value Range Interpretation Code Description Data Poonam rce(s) Supporting Document(s) Erythrocyte mean corpuscular hemoglobin [Entitic mass] by Au tomated count 25.9 27.0-33.0 [facility] ([facility]) ID Date Data Source [id number] 10/01/2019 01:58:00 PM EST [facility] ([facility]) Name Value Range Interpretation Code Description Data Poonam rce(s) Supporting Document(s) Erythrocyte mean corpuscular volume [Entitic volume] by Auto mated count 86.0 80.0-96.0 [facility] ([facility]) ID Date Data Source [id number] 10/01/2019 01:58:00 PM EST [facility] ([facility]) Name Value Range Interpretation Code Description Data Poonam rce(s) Supporting Document(s) Hematocrit [Volume Fraction] of Blood by Automated count 36.2 3 6.0-47.0 [facility] ([facility]) ID Date Data Source [id number] 10/01/2019 01:58:00 PM EST [facility] ([facility]) Name Value Range Interpretation Code Description Data Poonam rce(s) Supporting Document(s) Hemoglobin [Mass/volume] in Blood 10.9 12.0-15.5 [facility] ([facility]) ID Date Data Source [id number] 10/01/2019 01:58:00 PM EST [facility] ([facility]) Name Value Range Interpretation Code Description Data Poonam rce(s) Supporting Document(s) Erythrocytes [#/volume] in Blood by Automated count 4.21 4.00-5 .40 [facility] ([facility]) ID Date Data Source [id number] 10/01/2019 01:58:00 PM EST [facility] ([facility]) Name Value Range Interpretation Code Description Data Poonam rce(s) Supporting Document(s) Leukocytes [#/volume] in Blood by Automated count 12.8 4.0-10.0 [facility] ([facility]) ID Date Data Source [id number] 10/01/2019 01:58:00 PM EST [facility] ([facility]) Name Value Range Interpretation Code Description Data Poonam rce(s) Supporting Document(s) Lipase [Enzymatic activity/volume] in Serum or Plasma 296 73-3 93 [facility] ([facility]) ID Date Data Source [id number] 10/01/2019 01:58:00 PM EST [facility] ([facility]) Name Value Range Interpretation Code Description Data Poonam rce(s) Supporting Document(s) Albumin/Globulin [Mass Ratio] in Serum or Plasma 1.38 1.00-1.93 [facility] ([facility]) ID Date Data Source [id number] 10/01/2019 01:58:00 PM EST [facility] ([facility]) Name Value Range Interpretation Code Description Data Poonam rce(s) Supporting Document(s) Albumin [Mass/volume] in Serum or Plasma 4.0 3.2-5.2 [facility] ([facility]) ID Date Data Source [id number] 10/01/2019 01:58:00 PM EST [facility] ([facility]) Name Value Range Interpretation Code Description Data Poonam rce(s) Supporting Document(s) Protein [Mass/volume] in Serum or Plasma 6.9 6.4-8.2 [facility] ([facility]) ID Date Data Source [id number] 10/01/2019 01:58:00 PM EST [facility] ([facility]) Name Value Range Interpretation Code Description Data Poonam rce(s) Supporting Document(s) Bilirubin.direct [Mass/volume] in Serum or Plasma Laboratory test result 0.0-0.2 [facility] ([facility]) ID Date Data Source [id number] 10/01/2019 01:58:00 PM EST [facility] ([facility]) Name Value Range Interpretation Code Description Data Poonam rce(s) Supporting Document(s) Bilirubin.total [Mass/volume] in Serum or Plasma 0.4 0.2-1.0 [facility] ([facility]) ID Date Data Source [id number] 10/01/2019 01:58:00 PM EST [facility] ([facility]) Name Value Range Interpretation Code Description Data Poonam rce(s) Supporting Document(s) Alkaline phosphatase [Enzymatic activity/volume] in Serum or [place] sma 43 45-117 [facility] ([facility]) ID Date Data Source [id number] 10/01/2019 01:58:00 PM EST [facility] ([facility]) Name Value Range Interpretation Code Description Data Poonam rce(s) Supporting Document(s) Alanine aminotransferase [Enzymatic activity/volume] in Seru m or Plasma 23 12-78 [facility] ([facility]) ID Date Data Source [id number] 10/01/2019 01:58:00 PM EST [facility] ([facility]) Name Value Range Interpretation Code Description Data Poonam rce(s) Supporting Document(s) Aspartate aminotransferase [Enzymatic activity/volume] in Se rum or Plasma 15 7-37 [facility] ([facility]) ID Date Data Source [id number] 10/01/2019 01:58:00 PM EST [facility] ([facility]) Name Value Range Interpretation Code Description Data Poonam rce(s) Supporting Document(s) Neutrophils [#/volume] in Blood by Automated count 10.8 1.5-8.5 [facility] ([facility]) ID Date Data Source [id number] 10/01/2019 01:58:00 PM EST [facility] ([facility]) Name Value Range Interpretation Code Description Data Poonam rce(s) Supporting Document(s) Nucleated erythrocytes/100 leukocytes [Ratio] in Blood by Au tomated count 0.0 0-0 [facility] ([facility]) ID Date Data Source [id number] 10/01/2019 01:58:00 PM EST [facility] ([facility]) Name Value Range Interpretation Code Description Data Poonam rce(s) Supporting Document(s) Immature granulocytes/100 leukocytes in Blood by Automated count 0.5 0-3.0 MEDENT ([facility]) ID Date Data Source [id number] 10/01/2019 01:58:00 PM EST MEDENT ([facility]) Name Value Range Interpretation Code Description Data Poonam rce(s) Supporting Document(s) Urine Color Laboratory test result MEDEN T ([facility]) Urine Appearance Laboratory test result MEDENT ([facility]) pH of Urine 8.0 5.0-9.0 MEDENT ([facility]) Urine Protein Laboratory test result MEDENT ([facility]) Urine Specific Serena 1.002 1.002-1.035 M EDENT ([facility]) Urine Glucose (Ua) Laboratory test result MEDENT ([facility]) Urine Bilirubin Laboratory test result MEDENT ([facility]) Urine Ketones Laboratory test result MEDENT ([facility] ) Urine Urobilinogen 0.2 0.0-2.0 MEDENT ([facility]) Urine Nitrite Laboratory test result MEDENT ([facility]) Urine Leukocyte Esterase Laboratory test result MEDENT ([facility]) Urine Blood Laboratory test result MEDEN T ([facility]) Urine Bacteria (Auto) Laboratory test result MEDENT ([facility]) Urine RBC (Auto) 0 0-3 MEDENT ([facility]) Urine WBC (Auto) 0 0-3 MEDENT ([facility]) Urine Squamous Epithelial Cells 0 0-6 MEDENT ([facility]) Urine Mucus (Auto) Laboratory test result MEDENT ([facility]) Urine Hyaline Casts (Auto) 0 0-1 MED ENT ([facility]) Amorphous sediment [Presence] in Urine sediment by Lig ht microscopy Laboratory test result MEDENT ([facility]) ID Date Data Source [id number] 10/01/2019 01:58:00 PM EST MEDENT ([facility]) Name Value Range Interpretation Code Description Data Poonam rce(s) Supporting Document(s) Basophils [#/volume] in Blood by Automated count 0.0 0.0-0.2 MEDENT ([facility]) ID Date Data Source [id number] 10/01/2019 01:58:00 PM EST MEDENT ([facility]) Name Value Range Interpretation Code Description Data Poonam rce(s) Supporting Document(s) Eosinophils [#/volume] in Blood by Automated count 0.0 0.0-0.5 MEDENT ([facility]) ID Date Data Source [id number] 10/01/2019 01:58:00 PM EST MEDENT ([facility]) Name Value Range Interpretation Code Description Data Poonam rce(s) Supporting Document(s) Monocytes [#/volume] in Blood by Automated count 0.7 0.0-0.8 MEDENT ([facility]) ID Date Data Source [id number] 10/01/2019 01:58:00 PM EST MEDENT ([facility]) Name Value Range Interpretation Code Description Data Poonam rce(s) Supporting Document(s) Lymphocytes [#/volume] in Blood by Automated count 1.2 1.5-5.0 MEDENT ([facility]) Procedure Social History Code Duration Value Status Description Data Source(s ) Smoking 10/17/2020 12:00:00 AM EST Never Smoker completed Never S moker eCW1 ([facility]) Smoking 10/17/2020 12:00:00 AM EST Never Smoker completed Never S moker eCW1 ([facility]) Smoking 10/17/2020 12:00:00 AM EST Never Smoker completed Never S moker eCW1 ([facility]) Smoking 10/17/2020 12:00:00 AM EST Never Smoker completed Never S moker eCW1 ([facility]) 10/06/2020 11:09:21 AM EST Unknown if ever smoked comp leted Unknown if ever smoked [facility] Smoking 10/06/2020 11:09:00 AM EST Unknown if ever smoked comp leted Unknown if ever smoked [facility] 10/04/2020 11:22:00 AM EST Unknown if ever smoked comp leted Unknown if ever smoked [facility] Smoking 10/04/2020 11:22:00 AM EST Unknown if ever smoked comp leted Unknown if ever smoked [facility] Smoking 07/18/2020 12:00:00 AM EDT Never Smoker completed Never S moker eCW1 ([facility]) Smoking 07/18/2020 12:00:00 AM EDT Never Smoker completed Never S moker eCW1 ([facility]) Smoking 07/18/2020 12:00:00 AM EDT Never Smoker completed Never S moker eCW1 ([facility]) Smoking 07/18/2020 12:00:00 AM EDT Never Smoker completed Never S moker eCW1 ([facility]) Smoking 07/18/2020 12:00:00 AM EDT Never Smoker completed Never S moker eCW1 ([facility]) Smoking 07/18/2020 12:00:00 AM EDT Never Smoker completed Never S moker eCW1 ([facility]) Smoking 07/18/2020 12:00:00 AM EDT Never Smoker completed Never S moker eCW1 ([facility]) Smoking 07/10/2020 12:00:00 AM EDT Never Smoker completed Never S moker eCW1 ([facility]) Smoking 07/10/2020 12:00:00 AM EDT Never Smoker completed Never S moker eCW1 ([facility]) Smoking 07/10/2020 12:00:00 AM EDT Never Smoker completed Never S moker eCW1 ([facility]) Smoking 07/10/2020 12:00:00 AM EDT Never Smoker completed Never S moker eCW1 ([facility]) Smoking 07/10/2020 12:00:00 AM EDT Never Smoker completed Never S moker eCW1 ([facility]) Smoking 07/01/2020 12:00:00 AM EDT Never Smoker completed Never S moker eCW1 ([facility]) Smoking 07/01/2020 12:00:00 AM EDT Never Smoker completed Never S moker eCW1 ([facility]) Smoking 02/28/2020 12:00:00 AM EDT Never Smoker completed Never S moker eCW1 ([facility]) Smoking 02/28/2020 12:00:00 AM EDT Never Smoker completed Never S moker eCW1 ([facility]) Smoking 02/28/2020 12:00:00 AM EDT Never Smoker completed Never S moker eCW1 ([facility]) Smoking 02/28/2020 12:00:00 AM EDT Never Smoker completed Never S moker eCW1 ([facility]) Smoking 02/28/2020 12:00:00 AM EDT Never Smoker completed Never S moker eCW1 ([facility]) Smoking 02/28/2020 12:00:00 AM EDT Never Smoker completed Never S moker eCW1 ([facility]) Smoking 11/22/2019 12:00:00 AM EST Never Smoker completed Never S moker eCW1 ([facility]) Vital Signs ID Date Data Source UNK Name Value Range Interpretation Code Description Data Source(s) Diastolic blood pressure 58 mm[Hg] 58 mm[Hg] eCW1 ([facility]) Systolic blood pressure 102 mm[Hg] 102 mm[Hg] e CW1 ([facility]) Body temperature 97.8 [degF] 97.8 [degF] eCW1 ( [facility]) Respiratory rate 20 /min 20 /min eCW[facility] Heart rate 87 /min 87 /min eCW1 ([facility]) Body mass index (BMI) [Ratio] 20.64 kg/m2 20.64 kg/m2 eCW1 ([facility]) Body height 67 [in_i] 67 [in_i] eCW1 ([facility]) Body weight 131.8 [lb_av] 131.8 [lb_av] eCW1 ([facility]) Body temperature 97.5 [degF] 97.5 [degF] MEDENT ([facility] ) [place] body weight 135 [lb_av] 135 [lb_av] MEDEN T ([facility] ) Body mass index (BMI) [Ratio] 20.4 kg/m2 20.4 k g/m2 MEDENT ([facility] ) Body weight 130.00 [lb_av] 130.00 [lb_av] MEDEN T ([facility] ) Body height 67 [in_i] 67 [in_i] MEDENT ([facility] ) 5'7" Respiratory rate 12 /min 12 /min MEDENT ( [facility] ) Diastolic blood pressure 58 mm[Hg] 58 mm[Hg] eCW1 ([facility]) Systolic blood pressure 100 mm[Hg] 100 mm[Hg] e CW1 ([facility]) Body temperature 98.2 [degF] 98.2 [degF] eCW1 ( [facility]) Respiratory rate 20 /min 20 /min eCW1 ([facility] Heart rate 71 /min 71 /min eCW1 ([facility]) Body mass index (BMI) [Ratio] 20.20 kg/m2 20.20 kg/m2 eCW1 ([facility]) Body height 67 [in_i] 67 [in_i] eCW1 ([facility]) Body weight 129.0 [lb_av] 129.0 [lb_av] eCW1 ([facility]) Diastolic blood pressure 70 mm[Hg] 70 mm[Hg] eCW1 ([facility]) Systolic blood pressure 112 mm[Hg] 112 mm[Hg] e CW1 ([facility]) Body temperature 98.1 [degF] 98.1 [degF] eCW1 ( [facility]) Respiratory rate 20 /min 20 /min eCW1 ([facility]) Heart rate 84 /min 84 /min eCW1 ([facility]) Body mass index (BMI) [Ratio] 20.20 kg/m2 20.20 kg/m2 eCW1 ([facility]) Body height 67 [in_i] 67 [in_i] eCW1 ([facility]) Body weight 129.0 [lb_av] 129.0 [lb_av] eCW1 ([facility]) Diastolic blood pressure 62 mm[Hg] 62 mm[Hg] eCW1 ([facility]) Systolic blood pressure 100 mm[Hg] 100 mm[Hg] e CW1 ([facility]) Body temperature 97.4 [degF] 97.4 [degF] eCW1 ( [facility]) Respiratory rate 20 /min 20 /min eCW1 ([facility]) Heart rate 76 /min 76 /min eCW1 ([facility]) Body mass index (BMI) [Ratio] 20.05 kg/m2 20.05 kg/m2 eCW1 ([facility]) Body height 67 [in_i] 67 [in_i] eCW1 ([facility]) Body weight 128.0 [lb_av] 128.0 [lb_av] eCW1 ([facility]) [place] body weight 135 [lb_av] 135 [lb_av] MEDEN T ([facility]) Body mass index (BMI) [Ratio] 20.4 kg/m2 20.4 k g/m2 MEDENT ([facility]) Body weight 130.00 [lb_av] 130.00 [lb_av] MEDEN T ([facility]) Body height 67 [in_i] 67 [in_i] MEDENT ([facility]) 5'7" Respiratory rate 12 /min 12 /min MEDENT ( [facility]) [place] body weight 135 [lb_av] 135 [lb_av] MEDEN T ([facility]) Body mass index (BMI) [Ratio] 20.4 kg/m2 20.4 k g/m2 MEDENT ([facility]) Body weight 130.00 [lb_av] 130.00 [lb_av] MEDEN T ([facility]) Body height 67 [in_i] 67 [in_i] MEDENT ([facility]) 5'7" Respiratory rate 12 /min 12 /min MEDENT ( [facility]) Body temperature 97.2 [degF] 97.2 [degF] eCW1 ( [facility]) Respiratory rate 20 /min 20 /min eCW1 ([facility]) Heart rate 92 /min 92 /min eCW1 ([facility]) Body mass index (BMI) [Ratio] 20.23 kg/m2 20.23 kg/m2 W1 ([facility]) Body height 67 [in_i] 67 [in_i] eCW1 ([facility]) Body weight 129.2 [lb_av] 129.2 [lb_av] eCW1 ([facility]) Diastolic blood pressure 64 mm[Hg] 64 mm[Hg] eCW1 ([facility]) Systolic blood pressure 108 mm[Hg] 108 mm[Hg] e CW1 ([facility]) Body weight 55.793 kg 55.793 kg MEDENT ([facility]) Body mass index (BMI) [Ratio] 19.3 kg/m2 19.3 k g/m2 MEDENT ([facility]) Body weight 123.00 [lb_av] 123.00 [lb_av] MEDEN T ([facility], ) Body height 67 [in_i] 67 [in_i] MEDENT ([facility], ) 5'7" Body mass index (BMI) [Ratio] 18.3 kg/m2 18.3 k g/m2 MEDENT ([facility], ) Body weight 117.00 [lb_av] 117.00 [lb_av] MEDEN T ([facility] ) Body height 67 [in_i] 67 [in_i] MEDENT ([facility], ) 5'7" Respiratory rate 12 /min 12 /min MEDENT ( [facility] ) Heart rate 68 /min 68 /min MEDENT ([facility] ) Diastolic blood pressure 64 mm[Hg] 64 mm[Hg] MEDENT ([facility] ) Systolic blood pressure 120 mm[Hg] 120 mm[Hg] M EDENT ([facility] ) Respiratory rate 20 /min 20 /min eCW1 ([facility]) Heart rate 83 /min 83 /min eCW1 ([facility]) Body mass index (BMI) [Ratio] 20.70 kg/m2 20.70 kg/m2 [facility] ([facility]) Body height 67 [in_us] 67 [in_us] eCW1 ([facility]) Body weight Measured 132.2 [lb_av] 132.2 [lb_av ] eCW1 ([facility]) Diastolic blood pressure 62 mm[Hg] 62 mm[Hg] eCW1 ([facility]) Systolic blood pressure 110 mm[Hg] 110 mm[Hg] e CW1 ([facility]) Body temperature 98.1 [degF] 98.1 [degF] eCW1 ( [facility]) Diastolic blood pressure 76 mm[Hg] 76 mm[Hg] eCW1 ([facility]) Systolic blood pressure 126 mm[Hg] 126 mm[Hg] e CW1 ([facility]) Body temperature 97.0 [degF] 97.0 [degF] eCW1 ( [facility]) Respiratory rate 18 /min 18 /min eCW1 ([facility]) Heart rate 87 /min 87 /min eCW1 ([facility]) Body mass index (BMI) [Ratio] 20.67 kg/m2 20.67 kg/m2 eCW1 ([facility]) Body height 67 [in_us] 67 [in_us] eCW1 ([facility]) Body weight Measured 132.0 [lb_av] 132.0 [lb_av ] eCW1 ([facility]) Diastolic blood pressure 64 mm[Hg] 64 mm[Hg] eCW1 ([facility]) Systolic blood pressure 116 mm[Hg] 116 mm[Hg] e CW1 ([facility]) Body temperature 97.0 [degF] 97.0 [degF] eCW1 ( [facility]) Respiratory rate 18 /min 18 /min eCW1 ([facility]) Heart rate 89 /min 89 /min eCW1 ([facility]) Body mass index (BMI) [Ratio] 20.36 kg/m2 20.36 kg/m2 eCW1 ([facility]) Body height 67 [in_us] 67 [in_us] eCW1 ([facility]) Body weight Measured 130.0 [lb_av] 130.0 [lb_av ] eCW1 ([facility]) Body mass index (BMI) [Ratio] 20.0 kg/m2 20.0 k g/m2 MEDENT ([facility]) Body weight 131.62 [lb_av] 131.62 [lb_av] MEDEN T ([facility]) Diastolic blood pressure 68 mm[Hg] 68 mm[Hg] eCW1 ([facility]) Systolic blood pressure 104 mm[Hg] 104 mm[Hg] e CW1 ([facility]) Body temperature 97.4 [degF] 97.4 [degF] eCW1 ( [facility]) Respiratory rate 16 /min 16 /min eCW1 ([facility]) Heart rate 83 /min 83 /min eCW1 ([facility]) Body mass index (BMI) [Ratio] 20.52 kg/m2 20.52 kg/m2 eCW1 ([facility]) Body height 67 [in_us] 67 [in_us] eCW1 ([facility]) Body weight Measured 131 [lb_av] 131 [lb_av] eC W1 ([facility]) Patient Treatment Plan of Care Planned Activity Planned Date Details Description Data Source (s) Nystatin [id number] UNT/ML Topical Cream 07/10/2020 12:00:00 AM EDT eCW1 ([facility]) valganciclovir 450 MG Oral Tablet 07/10/2020 12:00:00 AM EDT eCW1 ([facility]) Nystatin [id number] UNT/ML Topical Cream 07/10/2020 12:00:00 AM EDT eCW1 ([facility]) valganciclovir 450 MG Oral Tablet 07/10/2020 12:00:00 AM EDT eCW1 ([facility]) Nystatin [id number] UNT/ML Topical Cream 07/10/2020 12:00:00 AM EDT eCW1 ([facility]) valganciclovir 450 MG Oral Tablet 07/10/2020 12:00:00 AM EDT eCW1 ([facility]) Nystatin [id number] UNT/ML Topical Cream 07/10/2020 12:00:00 AM EDT eCW1 ([facility]) valganciclovir 450 MG Oral Tablet 07/10/2020 12:00:00 AM EDT eCW1 ([facility]) Nystatin [id number] UNT/ML Topical Cream 07/10/2020 12:00:00 AM EDT eCW1 ([facility]) valganciclovir 450 MG Oral Tablet 07/10/2020 12:00:00 AM EDT eCW1 ([facility]) Rivaroxaban 20 MG 07/01/2020 12:00:00 AM EDT eCW1 ([facility]) Rivaroxaban 20 MG 07/01/2020 12:00:00 AM EDT eCW1 ([facility]) mesalamine 1200 MG Delayed Release Oral Tablet 06/24/2020 12:00:00 AM EDT eCW1 ([facility]) pregabalin 50 MG Oral Capsule [Lyrica] 04/01/2020 12:00:00 AM EDT eCW1 ([facility]) pregabalin 50 MG Oral Capsule [Lyrica] 04/01/2020 12:00:00 AM EDT eCW1 ([facility]) pregabalin 50 MG Oral Capsule [Lyrica] 04/01/2020 12:00:00 AM EDT eCW1 ([facility]) Docusate Sodium 100 MG Oral Capsule [Colace] 01/14/2020 12:00:00 AM EDT eCW1 ([facility]) Docusate Sodium 100 MG Oral Capsule [Colace] 01/14/2020 12:00:00 AM EDT eCW1 ([facility]) Hydrocortisone 25 MG/ML Topical Cream [Anusol HC] 01/07/2020 12: 00:00 AM EDT eCW1 ([facility]) Hydrocortisone 25 MG/ML Topical Cream [Anusol HC] 01/07/2020 12: 00:00 AM EDT eCW1 ([facility]) Hydrocortisone 25 MG/ML Topical Cream [Anusol HC] 01/07/2020 12: 00:00 AM EDT eCW1 ([facility]) Hydrocortisone 25 MG/ML Topical Cream [Anusol HC] 01/07/2020 12: 00:00 AM EDT eCW1 ([facility]) Hydrocortisone 25 MG/ML Topical Cream [Anusol HC] 01/07/2020 12: 00:00 AM EDT eCW1 ([facility]) Hydrocortisone 25 MG/ML Topical Cream [Anusol HC] 01/07/2020 12: 00:00 AM EDT eCW1 ([facility]) doxycycline hyclate 100 MG Oral Capsule 12/24/2019 12:00:00 AM EDT eCW1 ([facility]) doxycycline hyclate 100 MG Oral Capsule 12/24/2019 12:00:00 AM EDT eCW1 ([facility]) Depend Pant Medium 1 ea 11/22/2019 12:00:00 AM EST eCW1 ([facility]) Depend Pant Medium 1 ea 11/22/2019 12:00:00 AM EST eCW1 ([facility]) Depend Pant Medium 1 ea 11/22/2019 12:00:00 AM EST eCW1 ([facility]) Depend Pant Medium 1 ea 11/22/2019 12:00:00 AM EST eCW1 ([facility]) Calcium Carbonate 1000 MG Chewable Tablet [Tums] 11/22/2019 12:00:0 0 AM EST eCW1 ([facility]) Depend Pant Medium 1 ea 11/22/2019 12:00:00 AM EST eCW1 ([facility]) Calcium Carbonate 1000 MG Chewable Tablet [Tums] 11/22/2019 12:00:0 0 AM EST eCW1 ([facility]) Depend Pant Medium 1 ea 11/22/2019 12:00:00 AM EST eCW1 ([facility]) Hydrocortisone 25 MG/ML Topical Cream [Anusol HC] 10/16/2019 12: 00:00 AM EST eCW1 ([facility]) calcium polycarbophil 625 MG Oral Tablet [FiberCon] 10/16/19 12:00:00 AM EST eCW1 (Count includes the [facility]) Calamine 80 MG/ML / Pramoxine hydrochloride 10 MG/ML T opical Lotion [Caladryl] 09/11/2019 12:00:00 AM EST eCW1 ([facility]) Valcyclovir-1000 mg TID 500 mg 09/11/2019 12:00:00 AM EST eCW1 ([facility])
[2020-11-06] MEDS ORDERED: FURO40TA2 PO (11:44)
[2020-11-06] MEDS ORDERED: ASPI81CH33 PO (11:44)
--- OUTSIDE RECORDS SUMMARY | 2020-11-06 12:40 | CCD ---
Author Author [facility] Organization [facility] Address Unknown Phone Unavailable Care Team Providers Care Sharebroker Name Role Phone WILLIAM, H KENJI BAR STEWARD Unavailable Unavailable WILLIAM, H KENJI BAR STEWARD Unavailable Unavailable WILLIAM, H KENJI BAR STEWARD Unavailable Unavailable WILLIAM, H KENJI BAR STEWARD Unavailable Unavailable WILLIAM, H KENJI BAR STEWARD Unavailable Unavailable WILLIAM, H KENJI BAR STEWARD Unavailable Unavailable WILLIAM, H KENJI BAR STEWARD Unavailable Unavailable WILLIAM, H KENJI BAR STEWARD Unavailable Unavailable WILLIAM, H KENJI BAR STEWARD Unavailable Unavailable WILLIAM, H KENJI BAR STEWARD Unavailable Unavailable WILLIAM, H KENJI BAR STEWARD Unavailable Unavailable WILLIAM, H KENJI BAR STEWARD Unavailable Unavailable WILLIAM, H KENJI BAR STEWARD Unavailable Unavailable WILLIAM, H KENJI BAR STEWARD Unavailable Unavailable WILLIAM, H KENJI BAR STEWARD Unavailable Unavailable WILLIAM, H KENJI BAR STEWARD Unavailable Unavailable WILLIAM, H KENJI BAR STEWARD Unavailable Unavailable WILLIAM, H KENJI BAR STEWARD Unavailable Unavailable WILLIAM, H KENJI BAR STEWARD Unavailable Unavailable WILLIAM, H KENJI BAR STEWARD Unavailable Unavailable WILLIAM, H KENJI BAR STEWARD Unavailable Unavailable WILLIAM, H KENJI BAR STEWARD Unavailable Unavailable WILLIAM, H KENJI BAR STEWARD Unavailable Unavailable WILLIAM, H KENJI BAR STEWARD Unavailable Unavailable WILLIAM, H KENJI BAR STEWARD Unavailable Unavailable WILLIAM, H KENJI BAR STEWARD Unavailable Unavailable WILLIAM, H KENJI BAR STEWARD Unavailable Unavailable WILLIAM, H KENJI BAR STEWARD Unavailable Unavailable WILLIAM, H KENJI BAR STEWARD Unavailable Unavailable WILLIAM, H KENJI BAR STEWARD Unavailable Unavailable WILLIAM, H KENJI BAR STEWARD Unavailable Unavailable WILLIAM, H KENJI BAR STEWARD Unavailable Unavailable WILLIAM, H KENJI BAR STEWARD Unavailable Unavailable WILLIAM, H KENJI BAR STEWARD Unavailable Unavailable WILLIAM, H KENJI BAR STEWARD Unavailable Unavailable WILLIAM, H KENJI BAR STEWARD Unavailable Unavailable WILLIAM, H KENJI BAR STEWARD Unavailable Unavailable WILLIAM, H KENJI BAR STEWARD Unavailable Unavailable WILLIAM, H KENJI BAR STEWARD Unavailable Unavailable WILLIAM, H KENJI BAR STEWARD Unavailable Unavailable WILLIAM, H KENJI BAR STEWARD Unavailable Unavailable WILLIAM, H KENJI BAR STEWARD Unavailable Unavailable WILLIAM, H KENJI BAR STEWARD Unavailable Unavailable WILLIAM, H KENJI BAR STEWARD Unavailable Unavailable WILLIAM, H KENJI BAR STEWARD Unavailable Unavailable WILLIAM, H KENJI BAR STEWARD Unavailable Unavailable WILLIAM, H KENJI BAR STEWARD Unavailable Unavailable WILLIAM, H KENJI BAR STEWARD Unavailable Unavailable WILLIAM, H KENJI BAR STEWARD Unavailable Unavailable WILLIAM, H KENJI BAR STEWARD Unavailable Unavailable WILLIAM, H KENJI BAR STEWARD Unavailable Unavailable WILLIAM, H KENJI BAR STEWARD Unavailable Unavailable WILLIAM, H KENJI BAR STEWARD Unavailable Unavailable WILLIAM, H KENJI BAR STEWARD Unavailable Unavailable WILLIAM, H KENJI BAR STEWARD Unavailable Unavailable BraulioClaire wong MD Unavailable Unavailable [...] Unavailable Unavailable Dipti Mejia MD Unavailable Unavailable Dipit Mejia MD Unavailable Unavailable Dipti Mejia MD Unavailable Unavailable Dipti Mejia MD Unavailable Unavailable Dipti Mejia MD Unavailable Unavailable Dipti Mejia MD Unavailable Unavailable Dipti Mejia MD Unavailable Unavailable Dipti Mejia MD Unavailable Unavailable Dipti Mejia MD Unavailable Unavailable Dipti eMjia MD Unavailable Unavailable Dipti Mejia MD Unavailable Unavailable Dipti Mejia MD Unavailable Unavailable Dipti Mejia MD Unavailable Unavailable Dipti Mejia MD Unavailable Unavailable Dipti Mejia MD Unavailable Unavailable Dipti Mejia MD Unavailable Unavailable Dipti Mejia MD Unavailable Unavailable Dipti Mejia MD Unavailable Unavailable Dipti Mejia MD Unavailable Unavailable Dipti Mejia MD Unavailable Unavailable Dipti Mejia MD Unavailable Unavailable Ditpi Mejia MD Unavailable Unavailable Dipti Mejia MD [...] Unavailable Unavailable Dipti Mejia MD Unavailable Unavailable Dpiti Mejia MD Unavailable Unavailable Dipti Mejia MD [...] Unavailable Dipti Mejia MD Unavailable Unavailable Dipti Mjeia MD Unavailable Unavailable Dipti Mejia MD Unavailable [...] Unavailable Unavailable JERRELL SPANGLER MD Unavailable Unavailable DARLENE NARANJO MD [...] is protected by Article 27-F of the [facility] Public Health law. If you continue you may have access to information: Regarding HIV / AIDS; Provided by facilities licensed or operated by the [facility] Office of Mental Health; or Provided by the [facility] Office for People With Developmental Disabilities. If such information is present, then the following [facility] mandated warning applies: This information has [...] law may result in a fine or retirement sentence or both. A general authorization for the release of medical or other information is NOT sufficient authorization for further disc losure. Allergies and Adverse Reactions Type Description Substance Reaction Status Data Source(s ) Drug allergy levofloxacin Levofloxacin Hives [facility] Drug allergy meloxicam meloxicam Nausea/Vomit/Gastric U [facility] Drug allergy procaine procaine [facility] Drug allergy gabapentin gabapentin Rash U [facility] Drug allergy clarithromycin Clarithromycin Nausea/Vomit/Gastric U [facility] Drug allergy famotidine famotidine Nausea/Vomit/Gastric U [facility] Drug allergy nitrofurantoin nitrofurantoin Other, not listed U [facility] Drug allergy doxycycline doxycycline Nausea/Vomit/Gastric U [facility] Drug allergy cephalexin cephalexin Anaphylaxis U [facility] Drug allergy Antihistamines - Alkylamine Antihistamines - Alkylamine Rash U [facility] Drug allergy Sulfa (Sulfonamide Antibiotics) Sulfa (Sulfonami de Antibiotics) [facility] Penicillins Penicillin Anaphylaxis [facility] Drug allergy Iodinated Contrast Media Iodinated Contrast Media Anaphy laxis U [facility] Drug allergy No Known Drug Allergies No Known Drug Allergies [facility] Drug allergy contrast dye contrast dye [facility] BRANDNAME ANTIHISTAMINE ANTIHISTAMINE [facility] BRANDNAME PEPCID PEPCID [facility] BRANDNAME NOVOCAIN NOVOCAIN [facility] BRANDNAME LEVUIN LEVUIN [facility] BRANDNAME KEFLEX KEFLEX [facility] BRANDNAME BIAXIN BIAXIN [facility] Drug allergy DOXYCYCLINE DOXYCYCLINE [facility] CLASS PENICILLINS (CLASS) PENICILLINS (CLASS) [facility] CLASS SULFA (sulfonamide) SULFA (sulfonamide) [facility] Drug allergy Levaquin Drug allergy Hives Active eCW1 ([facility]) Drug allergy Doxycycline Hyclate Doxycycline N/V Active eC W1 ([facility]) Drug allergy Mobic meloxicam Nausea/Vomiting Active eCW1 ( [facility]) Drug allergy Pepcid Famotidine vomiting Active eCW1 ([facility]) Drug allergy Keflex Cephalexin Anaphylaxis Active eCW1 ([facility]) Novocain Novocain Novocain passed out Active eCW1 ([facility]) Biaxin Biaxin Clarithromycin 250 MG Oral Tablet [Biaxin] dysp epsia Active eCW1 ([facility]) antihistamines antihistamines antihistamines Rash Active eC W1 ([facility]) contrast dye contrast dye contrast dye can't breathe Active eCW1 ([facility]) macrodantin macrodantin NITROFURANTOIN, MACR OCRYSTALS 50 MG Oral Capsule [Macrodantin] , paresthesias Active eCW1 ([facility]) Novocain Novocain Novocain passed out Active eCW1 ([facility]) Biaxin Biaxin Clarithromycin 250 MG Oral Tablet [Biaxin] dysp epsia Active eCW1 ([facility]) Levaquin Levaquin Levofloxacin 750 MG Oral Tablet [Levaquin] Hive s Active eCW1 ([facility]) macrodantin macrodantin NITROFURANTOIN, MACR OCRYSTALS 50 MG Oral Capsule [Macrodantin] , paresthesias Active eCW1 ([facility]) antihistamines antihistamines antihistamines Rash Active eC W1 ([facility]) contrast dye contrast dye contrast dye can't breathe Active eCW1 ([facility]) Novocain Novocain Novocain passed out Active eCW1 ([facility]) Biaxin Biaxin Biaxin dyspepsia Active eCW1 ([facility]) contrast dye contrast dye contrast dye can't breathe Active eCW1 ([facility]) antihistamines antihistamines antihistamines Rash Active eC W1 ([facility]) macrodantin macrodantin macrodantin , paresthesias Active eCW1 ( [facility]) Novocain Novocain Novocain passed out Active eCW1 ([facility]) Biaxin Biaxin Clarithromycin 250 MG Oral Tablet [Biaxin] dysp epsia Active eCW1 ([facility]) antihistamines antihistamines antihistamines Rash Active eC W1 ([facility]) contrast dye contrast dye contrast dye can't breathe Active eCW1 ([facility]) macrodantin macrodantin NITROFURANTOIN, MACR OCRYSTALS 50 MG Oral Capsule [Macrodantin] , paresthesias Active eCW1 ([facility]) Family History Family Member Name Family Member Gender Family Member Status Date o f Status Description Data Source(s) Unknown Unknown Problem MEDENT ([facility]) Unknown Female Problem MEDENT ([facility]) Unknown Female Problem MEDENT ([facility]) Unknown Female Problem MEDENT ([facility]) Encounters Encounter Providers Location Date Indications Data Source(s ) [place] [address] [facility] [address] 10/20/2020 12:00:00 AM EST eCW1 ([facility]) [place] [address] [facility] [address] 10/17/2020 12:00:00 AM EST eCW1 ([facility]) [place] [address] [facility] [address] 10/17/2020 12:00:00 AM EST eCW1 ([facility]) [place] [address] [facility] [address] 10/16/2020 12:00:00 AM EST eCW1 ([facility]) [place] [address] [facility] [address] 10/09/2020 12:00:00 AM EST eCW1 ([facility]) Inpatient Attender: JERRELL Mallory nder: Max Coffey MDAdmitter: JERRELL SPANGLER MD 10/04/2020 12:07:00 PM EST - 10/06/2020 12:50:00 PM EST PNEUMONIA [facility] PNEUMONIA Patient discharged. Unknown [address] [facility] [address] 10/03/2020 12:00:00 AM EST eCW1 ([facility]) [place] [address] [facility] [address] 10/03/2020 12:00:00 AM EST eCW1 ([facility]) [place] [address] [facility] [address] 09/04/2020 12:00:00 AM EST eCW1 ([facility]) [place] [address] [facility] [address] 07/29/2020 12:00:00 AM EST eCW1 ([facility]) Outpatient Attender: Chela Epps MD Physical Therap y 07/23/2020 02:44:00 PM EST MED[facility] ([facility]) Office Visit Attender: Sami Mejia MD Main office - [facility] 07/22/2020 12:15:00 PM EST MED[facility] ([facility]) Out[place] [address] [facility] [address] 07/18/2020 12:00:00 AM EDT eCW1 ([facility]) [place] [address] [facility] [address] 07/18/2020 12:00:00 AM EDT eCW1 ([facility]) [place] [address] [facility] [address] 07/14/2020 12:00:00 AM EDT eCW1 ([facility]) [place] [address] [facility] [address] 07/14/2020 12:00:00 AM EDT eCW1 ([facility]) [place] [address] [facility] [address] 07/11/2020 12:00:00 AM EDT eCW1 ([facility]) Out[place] [address] [facility] [address] 07/10/2020 12:00:00 AM EDT eCW1 ([facility]) [place] [address] [facility] [address] 07/09/2020 12:00:00 AM EDT eCW1 ([facility]) [place] [address] [facility] [address] 07/04/2020 12:00:00 AM EDT eCW1 ([facility]) [place] [address] [facility] [address] 07/01/2020 12:00:00 AM EDT eCW1 ([facility]) [place] [address] [facility] [address] 06/27/2020 12:00:00 AM EDT eCW1 ([facility]) Outpatient Attender: Sami Mejia MDConsultant: Wali wong MD 04/30/2020 10:25:54 AM EDT [facility] Office Visit Attender: Sami Mejia MD Main office - [facility] 04/16/2020 10:30:00 AM EDT MEDENT ([facility]) [place] [address] [facility] [address] 04/07/2020 12:00:00 AM EDT eCW1 ([facility]) [place] [address] [facility] [address] 03/28/2020 12:00:00 AM EDT eCW1 ([facility]) Outpatient Attender: DARLENE NARANJO MD Physical Therapy 10:30:00 AM EDT MEDENT ([facility]) Office Visit Attender: Sami Mejia MD [facility] office - [facility] 03/03/2020 01:45:00 PM EDT MED[facility] ([facility]) Unknown [address] [facility] [address] 02/29/2020 12:00:00 AM EDT eCW1 ([facility]) Unknown [address] [facility] [address] 02/28/2020 12:00:00 AM EDT eCW1 ([facility]) Out[place] [address] [facility] [address] 02/28/2020 12:00:00 AM EDT eCW1 ([facility]) [place] [address] [facility] [address] 02/26/2020 12:00:00 AM EDT eCW1 ([facility]) Unknown [address] [facility] [address] 02/25/2020 12:00:00 AM EDT eCW1 ([facility]) Outpatient Attender: DARLENE NARANJO MD Physical Therapy 10:00:00 AM EDT MED[facility] ([facility]) [address] [address] 02/07/2020 12:00:00 AM EDT eCW1 ([facility]) [address] [address] 01/24/2020 12:00:00 AM EDT eCW1 ([facility]) [address] [address] 01/14/2020 12:00:00 AM EDT eCW1 ([facility]) [address] [address] 01/14/2020 12:00:00 AM EDT eCW1 ([facility]) [address] [address] 01/10/2020 12:00:00 AM EDT eCW1 ([facility]) [address] [address] 01/07/2020 12:00:00 AM EDT eCW1 ([facility]) [address] [address] 12/24/2019 12:00:00 AM EDT eCW1 ([facility]) [address] [address] 12/06/2019 12:00:00 AM EDT eCW1 ([facility]) Outpatient Attender: Sami Mejia MD Main office [facility] 11/30/2019 11:30:00 AM EDT MEDENT ([facility]) [address] [address] 11/28/2019 12:00:00 AM EDT eCW1 ([facility]) [address] [address] 11/23/2019 12:00:00 AM EST eCW1 ([facility]) [address] [address] 11/22/2019 12:00:00 AM EST [facility] [address] [address] 11/22/2019 12:00:00 AM EST [facility]CW[facility] [address] [address] 11/22/2019 12:00:00 AM EST [facility]CW1 [facility]) [address] [address] 11/22/2019 12:00:00 AM EST [facility]CW1 [facility]) Outpatient Referrer: KENJI WILLIAM NP 11/15/2019 06:29:00 PM E [facility] [address] [address] 11/08/2019 12:00:00 AM EST eCW1 [facility] Emergency Attender: DARLENE NARANJO MD Physical Therapy 03:26:00 PM EST MEDENT ([facility]) [address] [address] 11/01/2019 12:00:00 AM EST eCW1 ([facility]) [address] [address] 11/01/2019 12:00:00 AM EST eCW1 ([facility]) [address] [address] 10/25/2019 12:00:00 AM EST eCW1 ([facility]) [address] [address] 10/16/2019 12:00:00 AM EST eCW1 ([facility]) [address] [address] 10/16/2019 12:00:00 AM EST eCW1 ([facility]) [facility] [address] [place] [address], [place] [address] 10/15/2019 12:00:00 AM EST eCW1 ([facility]) [facility] [address] [place] [address], [place] [address] 10/03/2019 12:00:00 AM EST eCW1 ([facility]) [facility] [address] [place] [address], [place] [address] 10/02/2019 12:00:00 AM EST eCW1 ([facility]) [address] [address] 10/01/2019 12:00:00 AM EST eCW1 ([facility]) [facility] [address] [place] [address], [place] [address] 09/28/2019 12:00:00 AM EST eCW1 ([facility] [address] [address] 09/20/2019 12:00:00 AM EST eCW1 ([facility]) [address] [address] 09/11/2019 12:00:00 AM EST eCW1 ([facility]) [address] [address] 09/10/2019 12:00:00 AM EST eCW1 ([facility]) Functional Status Immunizations Vaccine Date Status Description Data Source(s) COVID-19(given elsewhere) Unspecified 10/14/2020 02:53:00 PM EST co mpleted eCW1 ([facility]) COVID-19(given elsewhere) Unspecified 10/14/2020 02:53:00 PM EST co mpleted eCW1 ([facility]) COVID-19(given elsewhere) Unspecified 10/14/2020 02:53:00 PM EST co mpleted eCW1 ([facility]) COVID-19(given elsewhere) Unspecified 10/14/2020 02:53:00 PM EST co mpleted eCW1 ([facility]) COVID-19(given elsewhere) Unspecified 09/19/2020 02:52:00 PM EST co mpleted eCW1 ([facility]) COVID-19(given elsewhere) Unspecified 09/19/2020 02:52:00 PM EST co mpleted eCW1 ([facility]) COVID-19(given elsewhere) Unspecified 09/19/2020 02:52:00 PM EST co mpleted eCW1 ([facility]) COVID-19(given elsewhere) Unspecified 09/19/2020 02:52:00 PM EST co mpleted eCW1 ([facility]) Prolia 60mg/1mL (Denosumab) 01/24/2020 05:16:00 PM EDT completed eCW1 ([facility]) Prolia 60mg/1mL (Denosumab) 01/24/2020 05:16:00 PM EDT completed eCW1 ([facility]) Prolia 60mg/1mL (Denosumab) 01/24/2020 05:16:00 PM EDT completed eCW1 ([facility]) Prolia 60mg/1mL (Denosumab) 01/24/2020 05:16:00 PM EDT completed eCW1 ([facility]) Prolia 60mg/1mL (Denosumab) 01/24/2020 05:16:00 PM EDT completed eCW1 ([facility]) Prolia 60mg/1mL (Denosumab) 01/24/2020 05:16:00 PM EDT completed eCW1 ([facility]) Prolia 60mg/1mL (Denosumab) 01/24/2020 05:16:00 PM EDT completed eCW1 ([facility]) Prolia 60mg/1mL (Denosumab) 01/24/2020 05:16:00 PM EDT completed eCW1 ([facility]) Prolia 60mg/1mL (Denosumab) 01/24/2020 05:16:00 PM EDT completed eCW1 ([facility]) Prolia 60mg/1mL (Denosumab) 01/24/2020 05:16:00 PM EDT completed eCW1 ([facility]) Prolia 60mg/1mL (Denosumab) 01/24/2020 05:16:00 PM EDT completed eCW1 ([facility]) Prolia 60mg/1mL (Denosumab) 01/24/2020 05:16:00 PM EDT completed eCW1 ([facility]) Prolia 60mg/1mL (Denosumab) 01/24/2020 05:16:00 PM EDT completed eCW1 ([facility]) Prolia 60mg/1mL (Denosumab) 01/24/2020 05:16:00 PM EDT completed eCW1 ([facility]) Prolia 60mg/1mL (Denosumab) 01/24/2020 05:16:00 PM EDT completed eCW1 ([facility]) Prolia 60mg/1mL (Denosumab) 01/24/2020 05:16:00 PM EDT completed eCW1 ([facility]) Prolia 60mg/1mL (Denosumab) 01/24/2020 05:16:00 PM EDT completed eCW1 ([facility]) Prolia 60mg/1mL (Denosumab) 01/24/2020 05:16:00 PM EDT completed eCW1 ([facility]) Prolia 60mg/1mL (Denosumab) 01/24/2020 05:16:00 PM EDT completed eCW1 ([facility]) Prolia 60mg/1mL (Denosumab) 01/24/2020 05:16:00 PM EDT completed eCW1 ([facility]) Prolia 60mg/1mL (Denosumab) 01/24/2020 05:16:00 PM EDT completed eCW1 ([facility]) Prolia 60mg/1mL (Denosumab) 01/24/2020 05:16:00 PM EDT completed eCW1 ([facility]) Medications Medication Brand Name Start Date Product Form Dose Route Admi nistrative Instructions Pharmacy Instructions Status Indications Reaction Description Data Source(s) cefpodoxime 200 MG Oral Tablet Cefpodoxime Cefpodoxime 10/06/2020 11:05:51 AM EST 200 MG [facility] Metronidazole 500 MG Oral Tablet Metronidazole 10/06/2020 11:00:36 AM EST [address] [facility] L. Acidophilus-L. Rhamnosus (Probiotic) 15 billion cell caps ule 10/06/2020 10:38:24 AM EST [address] [facility] Esomeprazole 40 MG Delayed Release Oral Capsule Esomep razole Magnesium Esomeprazole Magnesium 10/04/2020 03:48:00 PM EST 40 MG [facility] mycophenolate mofetil 500 MG Oral Tablet Mycophenolate Mofetil Mycophenolate Mofetil 10/04/2020 02:56:16 PM EST 1000 MG [facility] Ergocalciferol 34001 UNT Oral Capsule Er gocalciferol (Vitamin D2) (Vitamin D2) 1,250 mcg (50,000 unit) Capsule Ergocalciferol (Vitamin D2) (Vitamin D2) 1,250 mcg (50,000 unit) Capsule 10/04/2020 02:56:16 PM EST 1250 [facility] Cal[facility] Carbonate 500 MG Chewable Tablet Calcium Carbonate (Tums) 200 mg calcium (500 mg) Tablet,Chewable Calcium Carbonate (Tums) 200 mg calcium (500 mg) Tablet,Chewable 10/04/2020 02:56:16 PM EST 400 MG [facility] Aspirin 10/04/2020 02:56:16 PM EST 81 MG [facility] rivaroxaban 20 MG Oral Tablet Rivaroxaban (Xarelto) 20 mg tablet Rivaroxaban (Xarelto) 20 mg tablet 10/04/2020 02:56:16 PM EST 20 MG [facility] quetiapine 25 MG Oral Tablet Quetiapine Quetiapine 10/04/2020 02: 56:16 PM EST [address] [facility] Pyridostigmine [place] 60 MG Oral Tablet Pyridostigmine Brom kelvin 10/04/2020 02:56:16 PM EST 60 MG [facility] Furosemide 40 MG Oral Tablet Furosemide 10/04/2020 02:56:16 PM EST 40 MG active [facility] Metoprolol Tartrate 25 MG Oral Tablet Metoprolol Tartrate 02:56:16 PM EST 25 MG active [facility] Prednisone 20 MG Oral Tablet Prednisone 10/04/2020 02:53:54 PM EST 20 MG active [facility] valganciclovir 450 MG Oral Tablet Valganciclovir HCl 4 50 MG Valganciclovir HCl 450 MG 07/10/2020 12:00:00 AM EDT 2.0 {tablets_with_a_meal} active Valganciclovir HCl 450 MG eCW1 ([facility]) valganciclovir 450 MG Oral Tablet Valganciclovir HCl 4 50 MG Valganciclovir HCl 450 MG 07/10/2020 12:00:00 AM EDT 2.0 {tablets_with_a_meal} active Valganciclovir HCl 450 MG eCW1 ([facility]) valganciclovir 450 MG Oral Tablet Valganciclovir HCl 4 50 MG Valganciclovir HCl 450 MG 07/10/2020 12:00:00 AM EDT 2.0 {tablets_with_a_meal} active Valganciclovir HCl 450 MG eCW1 ([facility]) Nystatin 275921 UNT/ML Topical Cream Nystatin 066696 U NIT/GM Nystatin 583469 UNIT/GM 07/10/2020 12:00:00 AM EDT 1.0 {application} active Nystatin 946822 UNIT/GM eCW1 ([facility]) valganciclovir 450 MG Oral Tablet Valganciclovir HCl 4 50 MG Valganciclovir HCl 450 MG 07/10/2020 12:00:00 AM EDT 2.0 {tablets_with_a_meal} active Valganciclovir HCl 450 MG eCW1 ([facility]) Nystatin 027931 UNT/ML Topical Cream Nystatin 476254 U NIT/GM Nystatin 182253 UNIT/GM 07/10/2020 12:00:00 AM EDT 1.0 {application} active Nystatin 069511 UNIT/GM eCW1 ([facility]) Nystatin 947020 UNT/ML Topical Cream Nystatin 044723 U NIT/GM Nystatin 225233 UNIT/GM 07/10/2020 12:00:00 AM EDT 1.0 {application} active Nystatin 914457 UNIT/GM eCW1 ([facility]) Nystatin 154566 UNT/ML Topical Cream Nystatin 518546 U NIT/GM Nystatin 177663 UNIT/GM 07/10/2020 12:00:00 AM EDT 1.0 {application} active Nystatin 047575 UNIT/GM eCW1 ([facility]) Nystatin 868115 UNT/ML Topical Cream Nystatin 178272 U NIT/GM Nystatin 344644 UNIT/GM 07/10/2020 12:00:00 AM EDT 1.0 {application} active Nystatin 208279 UNIT/GM eCW1 ([facility]) valganciclovir 450 MG Oral Tablet Valganciclovir HCl 4 50 MG Valganciclovir HCl 450 MG 07/10/2020 12:00:00 AM EDT 2.0 {tablets_with_a_meal} active Valganciclovir HCl 450 MG eCW1 ([facility]) Rivaroxaban 20 MG UNK 07/01/2020 12:00:00 AM EDT 1.0 {tablet _with_food} active Rivaroxaban 20 MG eCW1 ([facility]) Rivaroxaban 20 MG UNK 07/01/2020 12:00:00 AM EDT 1.0 {tablet _with_food} active Rivaroxaban 20 MG eCW1 ([facility]) mesalamine 1200 MG Delayed Release Oral Tablet Mesalam ine 1.2 GM Mesalamine 1.2 GM 06/24/2020 12:00:00 AM EDT 2.0 {tablets} acti ve Mesalamine 1.2 GM eCW1 ([facility]) Diazepam 5 MG Oral Tablet Diazepam 04/17/2020 12:00:00 AM EDT active MEDENT ([facility]) Prednisone 20 MG Oral Tablet Prednisone 04/16/2020 12:00:00 AM EDT active [facility]ENT ([facility]) pregabalin 50 MG Oral Capsule [Lyrica] Lyrica 50 MG Lyrica 5 0 MG 04/01/2020 12:00:00 AM EDT 1.0 {capsule} active L yrica 50 MG eCW1 ([facility]) pregabalin 50 MG Oral Capsule [Lyrica] Lyrica 50 MG Lyrica 5 0 MG 04/01/2020 12:00:00 AM EDT 1.0 {capsule} active L yrica 50 MG eCW1 ([facility]) pregabalin 50 MG Oral Capsule [Lyrica] Lyrica 50 MG Lyrica 5 0 MG 04/01/2020 12:00:00 AM EDT 1.0 {capsule} active L yrica 50 MG eCW1 ([facility]) Diclofenac Sodium 0.01 MG/MG Topical Gel Voltaren 02/18/2020 12 :00:00 AM EDT active [facility]ENT ([facility]) Docusate Sodium 100 MG Oral Capsule [Colace] Colace 100 MG C olace 100 MG 01/14/2020 12:00:00 AM EDT 1.0 {capsule_as_needed} active Colace 100 MG eCW1 ([facility]) Docusate Sodium 100 MG Oral Capsule [Colace] Colace 100 MG C olace 100 MG 01/14/2020 12:00:00 AM EDT active 1 capsule as needed eCW1 ([facility]) Hydrocortisone 25 MG/ML Topical Cream [Anusol HC] Anus ol-HC 2.5 % Anusol-HC 2.5 % 01/07/2020 12:00:00 AM EDT 1.0 {application} active Anusol-HC 2.5 % eCW1 ([facility]) Hydrocortisone 25 MG/ML Topical Cream [Anusol HC] Anus ol-HC 2.5 % Anusol-HC 2.5 % 01/07/2020 12:00:00 AM EDT 1.0 {application} active Anusol-HC 2.5 % eCW1 ([facility]) Hydrocortisone 25 MG/ML Topical Cream [Anusol HC] Anus ol-HC 2.5 % Anusol-HC 2.5 % 01/07/2020 12:00:00 AM EDT 1.0 {application} active Anusol-HC 2.5 % eCW1 ([facility]) Hydrocortisone 25 MG/ML Topical Cream [Anusol HC] Anus ol-HC 2.5 % Anusol-HC 2.5 % 01/07/2020 12:00:00 AM EDT 1.0 {application} active Anusol-HC 2.5 % eCW1 ([facility]) Hydrocortisone 25 MG/ML Topical Cream [Anusol HC] Anus ol-HC 2.5 % Anusol-HC 2.5 % 01/07/2020 12:00:00 AM EDT 1.0 {application} active Anusol-HC 2.5 % eCW1 ([facility]) Hydrocortisone 25 MG/ML Topical Cream [Anusol HC] Anus ol-HC 2.5 % Anusol-HC 2.5 % 01/07/2020 12:00:00 AM EDT active 1 application eCW1 ([facility]) Hydrocortisone 25 MG/ML Topical Cream [Anusol HC] Anus ol-HC 2.5 % Anusol-HC 2.5 % 01/07/2020 12:00:00 AM EDT 1.0 {application} active Anusol-HC 2.5 % eCW1 ([facility]) Hydrocortisone 25 MG/ML Topical Cream [Anusol HC] Anus ol-HC 2.5 % Anusol-HC 2.5 % 01/07/2020 12:00:00 AM EDT 1.0 {application} active Anusol-HC 2.5 % eCW1 ([facility]) Hydrocortisone 25 MG/ML Topical Cream [Anusol HC] Anus ol-HC 2.5 % Anusol-HC 2.5 % 01/07/2020 12:00:00 AM EDT 1.0 {application} active Anusol-HC 2.5 % eCW1 ([facility]) Hydrocortisone 25 MG/ML Topical Cream [Anusol HC] Anus ol-HC 2.5 % Anusol-HC 2.5 % 01/07/2020 12:00:00 AM EDT 1.0 {application} active Anusol-HC 2.5 % eCW1 ([facility]) Hydrocortisone 25 MG/ML Topical Cream [Anusol HC] Anus ol-HC 2.5 % Anusol-HC 2.5 % 01/07/2020 12:00:00 AM EDT 1.0 {application}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 Pt is a poor historian. Based on pt report: lives with son/sons who assistwith meals and IADL's. Using 2WW for mobility. Type of Dwelling: unclear Does the patient have pain?: No - Objective Heari ng Ability: Use of Hearing Aid - Pt remains [place] with B hearing aids. Visual Assistive Devices: [...] this Eval. Pt slowed by need to bean picker walker, however demonstrates good safety. Amb [...] #2: - Short Term Goal #3: - MCFP goal #1: - Fiscal Technician Goal #2: - MCFP goal #3: - - End Date Ended:: [...] rce(s) Supporting Document(s) ID Date Data Source [id number] 10/06/2020 11:08:00 AM [facility] Name: COLBY MULLER : 1940 Age: 80 MR#: [id number] Admit Date: 10/04/20 Provider: Jerrell Spangler MD [...] % (Auto) 71.2, Lymph % (Auto) 18.7, [place] % (Auto) 8.5, Eos % (Auto) 0.5, [...] rce(s) Supporting Document(s) ID Date Data Source [id number] 10/06/2020 06:14:00 AM EST [facility] Name Value Range Interpretation Code Description Data Poonam rce(s) Supporting Document(s) Leukocytes [#/volume] in Blood by Automated count 7.9 10*3/uL 4.45-10 .71 N [facility] Erythrocytes [#/volume] in Blood by Automated count 3.17 10*6/uL 4.20-5.40 Below low normal [facility] Hemoglobin [Moles/volume] in Blood 9.1 g/dL 10.7-15.4 Below low no rmal [facility] Hematocrit [Volume Fraction] of Blood by Automated count 30.0 % 37-47 Below low normal [facility] Erythrocyte mean corpuscular volume [Ent itic volume] in Cord blood by Automated count 94.6 fL 80-96 N [facility] Erythrocyte mean corpuscular hemoglobin [Entitic mass] by Automated count 28.7 pg 27-31 N [facility] l Erythrocyte mean corpuscular hemoglobin concentration [Mass/volume] in Cord blood 30.3 g/dL 33-37 Below low normal [facility] Erythrocyte distribution width [Entitic volume] by Automated count 15 % 11-15 N [facility] Platelets [#/volume] in Blood by Automated count 454 10*3/uL 130-472 N [facility] Platelet mean volume [Entitic volume] in Blood 9.5 fL 9.1-13.1 N [facility] Neutrophils/100 leukocytes in Blood by Automated count 71.2 % 41- 77 N [facility] Neutrophils [#/volume] in Blood by Automated count 5.6 U 1.7-7.6 N [facility] Lymphocytes/100 leukocytes in Blood by Automated count 18.7 % 14- 46 N [facility] Lymphocytes [#/volume] in Blood by Automated count 1.5 U 0.6-4.6 N [facility] Monocytes/100 leukocytes in Blood by Automated count 8.5 % 4-12 N [facility] Monocytes [#/volume] in Blood by Automated count 0.7 U 0.2-1.2 N [facility] Eosinophils/100 leukocytes in Blood by Automated count 0.5 % 0-7 N [facility] Eosinophils [#/volume] in Blood by Automated count 0.0 U 0.0-0.5 N [facility] Basophils/100 leukocytes in Blood by Automated count 0.1 % 0.4-1.3 Below low normal [facility] Basophils [#/volume] in Blood by Automated count 0.0 U 0.0-0.2 N [facility] NUCLEATED RED BLOOD CELL 0 % [facility] NUCLEATED RED BLOOD CELL# 0 U [facility] Immature granulocytes [Presence] in Blood by Automated count 0-2 N [facility] Immature granulocytes [#/volume] in Blood by Automated count 0.1 U 0-0.1 N [facility] Manual Differential panel - Blood NO [facility] ID Date Data Source [id number] 10/06/2020 07:00:00 AM EST [facility] Name Value Range Interpretation Code Description Data Poonam rce(s) Supporting Document(s) Urea nitrogen [Mass/volume] in Serum or Plasma 9 mg/dL 9-23 N [facility] Sodium [Moles/volume] in Serum or Plasma 142 mmol/L 132-146 N [facility] Potassium [Moles/volume] in Serum or Plasma 3.2 mmol/L 3.5-5.5 Below low normal [facility] Chloride [Moles/volume] in Serum or Plasma 108 mmol/L 99-109 N [facility] Carbon dioxide, total [Moles/volume] in Serum or Plasma 28 mmol/L 20 -31 N [facility] Anion gap in Serum or Plasma 9 mmol/L 8-16 N [facility] Glucose [Mass/volume] in Serum or Plasma 80 mg/dL 74-106 N [facility] Creatinine 0.6 mg/dL 0.5-1.1 N [facility] Glomerular filtration rate/1.73 sq M.pre dicted [Volume Rate/Area] in Serum or Plasma Greater Than 60 ABOVE 60 [facility] Alanine aminotransferase [Enzymatic acti vity/volume] in Serum or Plasma by With P-5'-P 13 U/L 10-49 N [facility] Aspartate aminotransferase [Enzymatic ac tivity/volume] in Serum or Plasma by With P-5'-P 11 U/L 0-33 N [facility] pital Alkaline phosphatase [Enzymatic activity/volume] in Serum or Plasma 49 U/L 45-129 N [facility] Calcium [Mass/volume] in Serum or Plasma 7.9 mg/dL 8.5-10.1 Below low normal [facility] Bilirubin.total [Mass/volume] in Serum or Plasma 0.2 mg/dL 0.3-1.2 Below low normal [facility] Albumin [Mass/volume] in Serum or Plasma by Bromocresol purple (BCP) dye binding method 2.4 g/dL 3.2-4.8 Below low normal [facility] Protein [Mass/volume] in Serum or Plasma 5.0 g/dL 5.7-8.2 Below low normal [facility] ID Date Data Source [id number] 10/09/2020 09:31:00 AM [facility] Name Value Range Interpretation Code Description Data Poonam rce(s) Supporting Document(s) Clostridium difficile glutamate dehydrogenase [Presence] in Stool [facility] CLOSTRIDIUM DIFFICILE TOXIN/GDH W/REFL TO PCR Micro Number: [id number] Test Status: Final Specimen Source: STOOL Specimen Quality: Adequate GDH Antigen: Not Detected Toxin A and B: Not Detected COMMENT: No toxigenic C. difficile detected For additional information, please refer to [email or web address]/faq/YTT354 (This link is being provided for informational/educational purposes only.)THIS TEST WAS PERFORMED AT:[employer] [id number] MERATI,MD ID Date Data Source [id number] 10/05/2020 03:23:00 PM [facility] Name: COLBY MULLER : 1940 Age: 80 MR#: [id number] Admit Date: 10/04/20 Provider: Jerrell Spangler MD Room #: 291 Consulting Provider: Dictation Date: 10/05/20 Progress Note Subjective-ROS Date of service Date of service:: 10/05/20 Review of Systems Attestation/Length Of Stay: 10/04/20 12:07 Admit to Inpatient, Acute [STATUS] Routine Location: [facility] Primary diagnosis: pneumonia Isolation: Standard precautions [...] % (Auto) 72.0, Lymph % (Auto) 15.8, [place] % (Auto) 9.7, Eos % (Auto) 0.5, [...] rce(s) Supporting Document(s) ID Date Data Source [id number] 10/05/2020 08:03:00 AM EST [facility] Name Value Range Interpretation Code Description Data Poonam rce(s) Supporting Document(s) Leukocytes [#/volume] in Blood by Automated count 7.7 10*3/uL 4.45-10 .71 N [facility] Erythrocytes [#/volume] in Blood by Automated count 3.10 10*6/uL 4.20-5.40 Below low normal [facility] Hemoglobin [Moles/volume] in Blood 8.8 g/dL 10.7-15.4 Below low no rmal [facility] Hematocrit [Volume Fraction] of Blood by Automated count 29.7 % 37-47 Below low normal [facility] Erythrocyte mean corpuscular volume [Ent itic volume] in Cord blood by Automated count 95.8 fL 80-96 N [facility] Erythrocyte mean corpuscular hemoglobin [Entitic mass] by Automated count 28.4 pg 27-31 N [facility] Erythrocyte mean corpuscular hemoglobin concentration [Mass/volume] in Cord blood 29.6 g/dL 33-37 Below low normal [facility] Erythrocyte distribution width [Entitic volume] by Automated count 15 % 11-15 N [facility] Platelets [#/volume] in Blood by Automated count 414 10*3/uL 130-472 N [facility] Platelet mean volume [Entitic volume] in Blood 9.4 fL 9.1-13.1 N [facility] Neutrophils/100 leukocytes in Blood by Automated count 72.0 % 41- 77 N [facility] Neutrophils [#/volume] in Blood by Automated count 5.5 U 1.7-7.6 N [facility] Lymphocytes/100 leukocytes in Blood by Automated count 15.8 % 14- 46 N [facility] Lymphocytes [#/volume] in Blood by Automated count 1.2 U 0.6-4.6 N [facility] Monocytes/100 leukocytes in Blood by Automated count 9.7 % 4-12 N [facility] Monocytes [#/volume] in Blood by Automated count 0.8 U 0.2-1.2 N [facility] Eosinophils/100 leukocytes in Blood by Automated count 0.5 % 0-7 N [facility] Eosinophils [#/volume] in Blood by Automated count 0.0 U 0.0-0.5 N [facility] Basophils/100 leukocytes in Blood by Automated count 0.4 % 0.4-1 .3 N [facility] Basophils [#/volume] in Blood by Automated count 0.0 U 0.0-0.2 N [facility] NUCLEATED RED BLOOD CELL 0 % [facility] NUCLEATED RED BLOOD CELL# 0 U [facility] Immature granulocytes [Presence] in Blood by Automated count 0-2 N [facility] Immature granulocytes [#/volume] in Blood by Automated count 0.1 U 0-0.1 N [facility] Manual Differential panel - Blood NO [facility] ID Date Data Source [id number] 10/05/2020 08:30:00 AM EST [facility] Name Value Range Interpretation Code Description Data Poonam rce(s) Supporting Document(s) Urea nitrogen [Mass/volume] in Serum or Plasma 6 mg/dL 9-23 Below low normal [facility] Sodium [Moles/volume] in Serum or Plasma 142 mmol/L 132-146 [facility] Potassium [Moles/volume] in Serum or Plasma 3.5 mmol/L 3.5-5.5 [facility] Chloride [Moles/volume] in Serum or Plasma 108 mmol/L 99-109 [facility] Carbon dioxide, total [Moles/volume] in Serum or Plasma 27 mmol/L 20 -31 N [facility] Anion gap in Serum or Plasma 11 mmol/L 8-[address] [facility] Glucose [Mass/volume] in Serum or Plasma 92 mg/dL 74-106 N [facility] Creatinine 0.6 mg/dL 0.5-1.1 [facility] Glomerular filtration rate/1.73 sq M.pre dicted [Volume Rate/Area] in Serum or Plasma Greater Than 60 ABOVE 60 [facility] Alanine aminotransferase [Enzymatic acti vity/volume] in Serum or Plasma by With P-5'-P 14 U/L 10-49 N [facility] ital Aspartate aminotransferase [Enzymatic ac tivity/volume] in Serum or Plasma by With P-5'-P 12 U/L 0-33 N [facility] pital Alkaline phosphatase [Enzymatic activity/volume] in Serum or Plasma 49 U/L 45-129 N [facility] Calcium [Mass/volume] in Serum or Plasma 7.2 mg/dL 8.5-10.1 Below low normal [facility] Bilirubin.total [Mass/volume] in Serum or Plasma 0.2 mg/dL 0.3-1.2 Below low normal [facility] Albumin [Mass/volume] in Serum or Plasma by Bromocresol purple (BCP) dye binding method 2.3 g/dL 3.2-4.8 Below low normal [facility] Protein [Mass/volume] in Serum or Plasma 4.7 g/dL 5.7-8.2 Below low normal [facility] ID Date Data Source [id number] 10/04/2020 07:50:00 PM EST [facility] [address] [place] [id number] [phone] NAME SEX PT STATUS ACCOUNT NUMBER COLBY MULLER ADM IN [id number] ORDERING PHYSICIAN LOCATION MEDICAL RECORD NO. Jerrell Spangler MD [id number] ATTENDING PHYSICIAN DATE OF DATE OF EXAM/TIME [...] rce(s) Supporting Document(s) ID Date Data Source [id number] 10/04/2020 07:49:00 PM EST [facility] [address] [place] [address] [phone] NAME SEX PT STATUS ACCOUNT NUMBER COLBY MULLER ADM IN [id number] ORDERING PHYSICIAN LOCATION MEDICAL RECORD NO. Jerrell Spangler MD EW [id number] ATTENDING PHYSICIAN DATE OF DATE OF EXAM/TIME [...] rce(s) Supporting Document(s) ID Date Data Source [id number] 10/04/2020 04:22:00 PM [facility] Name: COLBY MULLER : 1940 Age: 80 MR#: [id number] Admit Date: 10/04/20 Provider: Jerrell Spangler MD [...] I called pt's son Mr Angel Muller [phone], cell [phone]; pt was recently discharged on 10-01-20. from [facility] after right femur surgery. Pt does [...] Smoking Status: Unknown if ever smoked Additional [facility] information Additional Family History: pt is unable [...] 87.0 H, Lymph % (Auto) 6.8 L, [place] % (Auto) 4.5, Eos % (Auto) 0.1, [...] 10/04/20 10:40: PT 11.4, INR 1.1, PTT ([place]) 25.5 10/04/20 10:40: Sodium 137, Potassium 3.4 [...] Xarelto Dictated by: <Electronically signed by Jerrell Spangelr MD> Jerrell Spangler MD 10/04/201809 Jerrell Spangler MD SIGNATURE DA Report Cosigners: D: MARIETTA 10/04/201621 T: MARIETTA 10/04/201621 CC: Name Value Range Interpretation Code Description Data Poonam rce(s) Supporting Document(s) ID Date Data Source [id number] 10/04/2020 01:06:00 PM [facility] Special Instructions: Lab may order repe at test if initial test elevatedPhysician If elevated, reflex second test in 4-6 hrs Name Value Range Interpretation Code Description Data Poonam rce(s) Supporting Document(s) Lactic w Rfx (if elevated) 2.0 mmol/L 0.5-2.0 N [facility] ID Date Data Source [id number] 10/09/2020 12:44:00 PM [facility] Special Instructions: Lab may order repe at test if initial test elevatedPhysician If elevated, reflex second test in 4-6 hrs Name Value Range Interpretation Code Description Data Poonam rce(s) Supporting Document(s) Bacteria identified in Blood by Culture [facility] NO GROWTH AFTER 5 DAYS ID Date Data Source [id number] 10/04/2020 10:59:00 AM [facility] [address] [place] [address] [phone] NAME SEX PT STATUS ACCOUNT NUMBER COLBY MULLER [facility] ER [id number] ORDERING PHYSICIAN LOCATION MEDICAL RECORD NO. Max Coffey MD ER [id number] ATTENDING PHYSICIAN DATE OF DATE OF EXAM/TIME [...] Trans Dt/Tm: Trans by: DT Prt Dt/Tm: 2393-3444: Total DLP = 0.00 mGy-cm Fluoroscopy Time (in secs): Name Value Range Interpretation Code Description Data Poonam rce(s) Supporting Document(s) ID Date Data Source [id number] 10/04/2020 10:53:00 AM [facility] ED Physician Documentation NAME: COLBY MULLER : 1940 AGE: 80 MR#: [id number] SERVICE DATE: 10/04/[address]: Max Coffey [...] 87.0 H, Lymph % (Auto) 6.8 L, [place] % (Auto) 4.5, Eos % (Auto) 0.1, [...] rce(s) Supporting Document(s) ID Date Data Source [id number] 10/04/2020 11:17:00 AM [facility] Diana Marie is a rapid, automated qualita tive anddifferentiation of Influenza type A,B and GZSF-[id number]-RT-PCR testNORMAL VALUE IS "NOT DETECTED".Limitations of the diana marie Influenza A/B & [id number] method.Modifications to manufacturers recommendation and proceduresmay alter performance of the test.Negative results do not preclude Influenza A,B or SARS- WLL6szsdzlzick and should not be used as the [...] rce(s) Supporting Document(s) ID Date Data Source [id number] 10/04/2020 11:17:00 AM [facility] Diana Marie is a rapid, automated qualita tive anddifferentiation of Influenza type A,B and LZWF-XNM-[id number]-RT-PCR testNORMAL VALUE IS "NOT DETECTED".Limitations of the diana marie Influenza A/B & [id number] method.Modifications to manufacturers recommendation and proceduresmay alter performance of the test.Negative results do not preclude Influenza A,B or SARS- NJG4weudkuvpvf and should not be used as the [...] rce(s) Supporting Document(s) Extended hours FLU/COV2 NAAT [facility] ID Date Data Source [id number] 10/04/2020 11:08:00 AM [facility] @10/04/20 1101: MANUAL DIFF added. RFLXG = DIFF. @10/04/20 1101: MANUAL DIFF added. RFLXG = DIFF. Name Value Range Interpretation Code Description Data Poonam rce(s) Supporting Document(s) Prothrombin Time (Patient) 11.4 s 9.6-12.3 N [facility] INR 1.1 0.9-1.1 N [facility] THE INR IS OPERATIONALLY DEFINED FOR EMERSON SH PLASMA FROMPATIENTS STABILIZED ON ORAL ANTICOAGULANTS.ROUTINE ANTICOAGULANT THERAPY 2.0-3.0RECURRENT SYSTEMIC EMBOLISM/HEART VALVE REPLACEMENT 2.5-3.5 aPTT.lupus sensitive (LA screen) 25.5 s 22.7-31.6 N [facility] ID Date Data Source [id number] 10/04/2020 11:14:00 AM EST [facility] @10/04/20 1101: MANUAL DIFF added. RFLXG = DIFF. @10/04/20 1101: MANUAL DIFF added. RFLXG = DIFF. Name Value Range Interpretation Code Description Data Poonam rce(s) Supporting Document(s) Urea nitrogen [Mass/volume] in Serum or Plasma 10 mg/dL 9-23 N [facility] Sodium [Moles/volume] in Serum or Plasma 137 mmol/L 132-146 [facility] Potassium [Moles/volume] in Serum or Plasma 3.4 mmol/L 3.5-5.5 Below low normal [facility] Chloride [Moles/volume] in Serum or Plasma 104 mmol/L 99-109 [facility] Carbon dioxide, total [Moles/volume] in Serum or Plasma 25 mmol/L 20 -31 N [facility] Anion gap in Serum or Plasma 11 mmol/L 8-16 [facility] Glucose [Mass/volume] in Serum or Plasma 100 mg/dL 74-106 N [facility] Creatinine 0.8 mg/dL 0.5-1.1 [facility] Glomerular filtration rate/1.73 sq M.pre dicted [Volume Rate/Area] in Serum or Plasma Greater Than 60 ABOVE 60 [facility] Alanine aminotransferase [Enzymatic acti vity/volume] in Serum or Plasma by With P-5'-P 16 U/L 10-49 N [facility] ital Aspartate aminotransferase [Enzymatic ac tivity/volume] in Serum or Plasma by With P-5'-P 9 U/L 0-33 N [facility] pital Alkaline phosphatase [Enzymatic activity/volume] in Serum or Plasma 55 U/L 45-129 N [facility] Calcium [Mass/volume] in Serum or Plasma 7.7 mg/dL 8.5-10.1 Below low normal [facility] Bilirubin.total [Mass/volume] in Serum or Plasma 0.3 mg/dL 0.3-1.2 N [facility] Albumin [Mass/volume] in Serum or Plasma by Bromocresol purple (BCP) dye binding method 2.5 g/dL 3.2-4.8 Below low normal [facility] Protein [Mass/volume] in Serum or Plasma 5.5 g/dL 5.7-8.2 Below low normal [facility] ID Date Data Source [id number] 10/04/2020 11:37:00 AM EST [facility] @10/04/20 1101: MANUAL DIFF added. RFLXG = DIFF. @10/04/20 1101: MANUAL DIFF added. RFLXG = DIFF. Name Value Range Interpretation Code Description Data Poonam rce(s) Supporting Document(s) Leukocytes [#/volume] in Blood by Automated count 11.5 10*3/uL 4.45-10.71 Above high normal [facility] Erythrocytes [#/volume] in Blood by Automated count 3.61 10*6/uL 4.20-5.40 Below low normal [facility] Hemoglobin [Moles/volume] in Blood 10.3 g/dL 10.7-15.4 Below low no rmal [facility] Hematocrit [Volume Fraction] of Blood by Automated count 33.9 % 37-47 Below low normal [facility] Erythrocyte mean corpuscular volume [Ent itic volume] in Cord blood by Automated count 93.9 fL 80-96 N [facility] Erythrocyte mean corpuscular hemoglobin [Entitic mass] by Automated count 28.5 pg 27-31 N [facility] l Erythrocyte mean corpuscular hemoglobin concentration [Mass/volume] in Cord blood 30.4 g/dL 33-37 Below low normal [facility] Erythrocyte distribution width [Entitic volume] by Automated count 15 % 11-15 N [facility] Platelets [#/volume] in Blood by Automated count 430 10*3/uL 130-472 N [facility] Platelet mean volume [Entitic volume] in Blood 9.1 fL 9.1-13.1 N [facility] Neutrophils/100 leukocytes in Blood by Automated count 87.0 % 41-77 Above high normal [facility] Neutrophils [#/volume] in Blood by Automated count 10.0 U 1.7-7.6 Above high normal [facility] Lymphocytes/100 leukocytes in Blood by Automated count 6.8 % 14-46 Below low normal [facility] Lymphocytes [#/volume] in Blood by Automated count 0.8 U 0.6-4.6 N [facility] Monocytes/100 leukocytes in Blood by Automated count 4.5 % 4-12 N [facility] Monocytes [#/volume] in Blood by Automated count 0.5 U 0.2-1.2 N [facility] Eosinophils/100 leukocytes in Blood by Automated count 0.1 % 0-7 N [facility] Eosinophils [#/volume] in Blood by Automated count 0.0 U 0.0-0.5 N [facility] Basophils/100 leukocytes in Blood by Automated count 0.3 % 0.4-1.3 Below low normal [facility] Basophils [#/volume] in Blood by Automated count 0.0 U 0.0-0.2 N [facility] NUCLEATED RED BLOOD CELL 0 % [facility] NUCLEATED RED BLOOD CELL# 0 U [facility] Immature granulocytes [Presence] in Blood by Automated count 0-2 N [facility] Immature granulocytes [#/volume] in Blood by Automated count 0.2 U 0-0.1 Above high normal [facility] Manual Differential panel - Blood Manual Diff Added [facility] ID Date Data Source [id number] 10/04/2020 11:14:00 AM EST [facility] @10/04/20 1101: MANUAL DIFF added. RFLXG = DIFF. @10/04/20 1101: MANUAL DIFF added. RFLXG = DIFF. Name Value Range Interpretation Code Description Data Poonam rce(s) Supporting Document(s) Troponin I.cardiac [Mass/volume] in Serum or Plasma Less Than 0.015 0.00-0.09 [facility] Less than 0.09 NG/ML Negative0.10 - 0.77 NG/ML High Risk0.78 NG/ML or Greater PositiveThe WHO defined the cutoff (definition for diagnosis of ME)for this method as 0.78 ng/ml. ID Date Data Source [id number] 10/04/2020 11:37:00 AM EST [facility] @10/04/20 1101: MANUAL DIFF added. RFLXG = DIFF. @10/04/20 1101: MANUAL DIFF added. RFLXG = DIFF. Name Value Range Interpretation Code Description Data Poonam rce(s) Supporting Document(s) Cells counted [#] 100 [facility] Neutrophils [#/volume] in Blood by Manual count 83 % 41-77 Above high normal [facility] Band form neutrophils [#/volume] in Blood by Manual count 2 % 0-5 N [facility] Lymphocytes [#/volume] in Blood by Manual count 10 % 14-46 Below low normal [facility] Monocytes [#/volume] in Blood by Manual count 4 % 4-12 N [facility] Eosinophils [#/volume] in Blood by Manual count 1 % 0-7 N [facility] Platelets [#/volume] in Blood by Estimate APPEARS NORMAL NORMAL [facility] Morphology [Interpretation] in Blood Narrative APPEARS NORMAL NORMAL [facility] ID Date Data Source [id number] 10/04/2020 12:00:00 AM EST [facility] Name Value Range Interpretation Code Description Data Poonam rce(s) Supporting Document(s) SARS-CoV2 Rapid PCR Not Detected [facility] This lab was ordered by [facility] and reported by [facility]. ID Date Data Source [id number] 09/24/2020 07:36:00 AM EST [facility] Name Value Range Interpretation Code Description Data Poonam rce(s) Supporting Document(s) SARS coronavirus 2 RNA Not Detected [facility] This lab was ordered by [facility] and reported by [facility]. ID Date Data Source [id number] 09/17/2020 09:00:00 AM EST [facility] Name Value Range Interpretation Code Description Data Poonam rce(s) Supporting Document(s) SARS coronavirus 2 RNA [facility] This lab was ordered by [facility] and reported by [facility]. ID Date Data Source [id number] 09/10/2020 10:00:00 AM EST [facility] Name Value Range Interpretation Code Description Data Poonam rce(s) Supporting Document(s) SARS coronavirus 2 RNA [facility] This lab was ordered by [facility] and reported by [facility]. ID Date Data Source [id number] 09/03/2020 07:30:00 AM EST [facility] Name Value Range Interpretation Code Description Data Poonam rce(s) Supporting Document(s) SARS coronavirus 2 RNA [facility] This lab was ordered by [facility] and reported by [facility]. ID Date Data Source [id number] 08/27/2020 06:15:00 AM EST [facility] Name Value Range Interpretation Code Description Data Poonam rce(s) Supporting Document(s) SARS coronavirus 2 RNA [facility] This lab was ordered by [facility] and reported by [facility]. ID Date Data Source [id number] 08/20/2020 10:10:00 AM EST [facility] Name Value Range Interpretation Code Description Data Poonam rce(s) Supporting Document(s) SARS coronavirus 2 RNA [facility] This lab was ordered by [facility] and reported by [facility]. ID Date Data Source [id number] 08/13/2020 11:00:00 AM EST [facility] Name Value Range Interpretation Code Description Data Poonam rce(s) Supporting Document(s) SARS coronavirus 2 RNA [facility] This lab was ordered by [facility] and reported by [facility]. ID Date Data Source [id number] 08/06/2020 08:00:00 AM EST [facility] Name Value Range Interpretation Code Description Data Poonam rce(s) Supporting Document(s) SARS coronavirus 2 RNA [facility] This lab was ordered by [facility] and reported by [facility]. ID Date Data Source [id number] 07/31/2020 11:55:00 AM EST [facility] Name Value Range Interpretation Code Description Data Poonam rce(s) Supporting Document(s) SARS coronavirus 2 RNA [facility] This lab was ordered by [facility] and reported by [facility]. ID Date Data Source [id number] LEVEL 07/18/2020 04:55:10 AM EDT eCW1 ([facility]) Name Value Range Interpretation Code Description Data Poonam rce(s) Supporting Document(s) 2.3 MAGNESIUM LEVEL eCW1 ([facility]) ID Date Data Source C REACTIVE PROTEIN QUANTITATIV (At [facility]) 07/18/2020 04:55 :07 AM EDT eCW1 ([facility]) Name Value Range Interpretation Code Description Data Poonam rce(s) Supporting Document(s) 0.72 C REACTIVE PROTEIN QUANTITATIV eCW1 ([facility]) ID Date Data Source Comprehensive Metabolic Profile (CMP) 07/18/2020 04:55:05 AM EDT eCW1 ([facility]) Name Value Range Interpretation Code Description Data Poonam rce(s) Supporting Document(s) 10 BLOOD UREA NITROGEN eCW1 ([facility]) 90 GLUCOSE, FASTING eCW1 ([facility]) 142 SODIUM LEVEL eCW1 ([facility]) > 60.0 GLOMERULAR FILTRATION RATE eCW 1 ([facility]) 0.80 CREATININE FOR GFR eCW1 ([facility]) 34 CARBON DIOXIDE LEVEL eCW1 ([facility]) 104 CHLORIDE LEVEL eCW1 ([facility]) 8.7 CALCIUM LEVEL eCW1 ([facility]) 3.5 POTASSIUM SERUM eCW1 ([facility]) 52 ALKALINE PHOSPHATASE eCW1 ([facility]) 11 AST/SGOT eCW1 ([facility]) 14 ALT/SGPT eCW1 ([facility]) 0.3 BILIRUBIN,TOTAL eCW1 ([facility]) 1.0 ALBUMIN/GLOBULIN RATIO eCW1 ([facility]) 2.9 ALBUMIN eCW1 ([facility]) 5.7 TOTAL PROTEIN eCW1 ([facility]) ID Date Data Source CBC with Differential 07/18/2020 02:29:56 AM EDT eCW1 ([facility]) Name Value Range Interpretation Code Description Data Poonam rce(s) Supporting Document(s) 10.5 WHITE BLOOD COUNT eCW1 ([facility]) 4.40 RED BLOOD COUNT eCW1 ([facility]) 86.4 MEAN CORPUSCULAR VOLUME eCW1 ( [facility]) 11.1 HEMOGLOBIN eCW1 ([facility]) 38.0 HEMATOCRIT eCW1 ([facility]) 20.8 RED CELL DISTRIBUTION WIDTH eC W1 ([facility]) 25.2 MEAN CORPUSCULAR HEMOGLOBIN eC W1 ([facility]) 414 PLATELET COUNT, AUTOMATED eCW1 ([facility]) 29.2 MEAN CORPUSCULAR HGB CONC eCW1 ([facility]) 8.3 LYMPH % eCW1 ([facility]) 0.5 EOS % eCW1 ([facility]) 89.0 NEUTROPHILS % eCW1 ([facility]) 1.1 MONO % eCW1 ([facility]) 0.3 BASO % eCW1 ([facility]) 0.9 LYMPH # eCW1 ([facility]) 9.3 NEUTROPHILS # eCW1 ([facility]) 0.1 MONO # eCW1 ([facility]) 0.1 EOS # eCW1 ([facility]) 0.0 BASO # eCW1 ([facility]) ID Date Data Source H PYLORI SERUM QUANT IgG LAST 07/04/2020 03:11:07 AM EDT eCW1 ([facility]) Name Value Range Interpretation Code Description Data Poonam rce(s) Supporting Document(s) 0.18 H PYLORI SERUM QUANT IgG LAST e CW1 ([facility]) ID Date Data Source IBD SEROLOGY PANEL 07/04/2020 03:11:03 AM EDT eCW1 ([facility]) Name Value Range Interpretation Code Description Data Poonam rce(s) Supporting Document(s) IBD SEROLOGY PANEL eCW1 ([facility]) ID Date Data Source NT-PRO BNP 07/01/2020 07:56:13 AM EDT eCW1 ([facility]) Name Value Range Interpretation Code Description Data Poonam rce(s) Supporting Document(s) 559 NT-PRO BNP eCW1 ([facility]) ID Date Data Source Reticulocyte Count Sysmex 07/01/2020 07:56:04 AM EDT eCW1 ([facility]) Name Value Range Interpretation Code Description Data Poonam rce(s) Supporting Document(s) 0.8 RETICULOCYTE % eCW1 ([facility]) ID Date Data Source VITAMIN D [id number] 11/22/2019 12:00:00 AM EST eCW1 ([facility]) Name Value Range Interpretation Code Description Data Poonam rce(s) Supporting Document(s) 96.4 30.0-100.0 TOTAL 25(OH) VITAMIN D eC W1 ([facility]) ID Date Data Source PTH INTACT 11/22/2019 12:00:00 AM EST eCW1 ([facility]) Name Value Range Interpretation Code Description Data Poonam rce(s) Supporting Document(s) 216.7 18.5-88.0 PTH INTACT eCW1 ([facility]) ID Date Data Source [id number] 11/22/2019 12:00:00 AM EST eCW1 ([facility]) Name Value Range Interpretation Code Description Data Poonam rce(s) Supporting Document(s) Hemoglobin A1c/Hemoglobin.total in Blood 5.8 HEMOGLOBIN A1c eCW1 ([facility]) ID Date Data Source [id number] 10/01/2019 02:04:00 PM EST [facility] ([facility]) Name Value Range Interpretation Code Description Data Poonam rce(s) Supporting Document(s) Creatinine [Mass/volume] in Blood 1.1 0.6-1.3 [facility] ([facility]) ID Date Data Source [id number] 10/01/2019 02:04:00 PM EST [facility] ([facility]) Name Value Range Interpretation Code Description Data Poonma rce(s) Supporting Document(s) Urea nitrogen [Mass/volume] in Blood 15 8-26 [facility] ([facility]) ID Date Data Source [id number] 10/01/2019 02:04:00 PM EST [facility] ([facility]) Name Value Range Interpretation Code Description Data Poonam rce(s) Supporting Document(s) Carbon dioxide, total [Moles/volume] in Blood 30.0 23.0-27.0 [facility] ([facility]) ID Date Data Source [id number] 10/01/2019 02:04:00 PM EST [facility] ([facility] ) Name Value Range Interpretation Code Description Data Poonam rce(s) Supporting Document(s) Chloride [Moles/volume] in Blood 100 98-109 [facility] ([facility]) ID Date Data Source [id number] 10/01/2019 02:04:00 PM EST [facility] ([facility] ) Name Value Range Interpretation Code Description Data Poonam rce(s) Supporting Document(s) Calcium.ionized [Moles/volume] in Blood 4.2 4.5-5.3 [facility] ([facility] ) ID Date Data Source [id number] 10/01/2019 02:04:00 PM EST [facility] ([facility] ) Name Value Range Interpretation Code Description Data Poonam rce(s) Supporting Document(s) Potassium [Moles/volume] in Blood 3.6 3.5-5.1 [facility] ([facility] ) ID Date Data Source [id number] 10/01/2019 02:04:00 PM EST [facility] ([facility] ) Name Value Range Interpretation Code Description Data Poonam rce(s) Supporting Document(s) Sodium [Moles/volume] in Blood 139 136-145 [facility] ([facility] ) ID Date Data Source [id number] 10/01/2019 02:04:00 PM EST [facility] ([facility] ) Name Value Range Interpretation Code Description Data Poonam rce(s) Supporting Document(s) Glucose [Mass/volume] in Blood 107 70-105 [facility] ([facility]) ID Date Data Source [id number] 10/01/2019 02:04:00 PM EST [facility] ([facility] ) Name Value Range Interpretation Code Description Data Poonam rce(s) Supporting Document(s) Hematocrit [Volume Fraction] of Blood 35.0 38.0-51.0 [facility] ([facility]) ID Date Data Source [id number] 10/01/2019 01:58:00 PM EST [facility] ([facility] ) Name Value Range Interpretation Code Description Data Poonam rce(s) Supporting Document(s) Basophils/100 leukocytes in Blood by Automated count 0.2 0.0-1 .0 [facility] ([facility]) ID Date Data Source [id number] 10/01/2019 01:58:00 PM EST [facility] ([facility]) Name Value Range Interpretation Code Description Data Poonam rce(s) Supporting Document(s) Eosinophils/100 leukocytes in Blood by Automated count 0.2 0.0 -3.0 [facility] ([facility]) ID Date Data Source [id number] 10/01/2019 01:58:00 PM EST [facility] ([facility]) Name Value Range Interpretation Code Description Data Poonam rce(s) Supporting Document(s) Monocytes/100 leukocytes in Blood by Automated count 5.5 0.0-5 .0 [facility] ([facility]) ID Date Data Source [id number] 10/01/2019 01:58:00 PM EST [facility] ([facility]) Name Value Range Interpretation Code Description Data Poonam rce(s) Supporting Document(s) Lymphocytes/100 leukocytes in Blood by Automated count 9.6 24. 0-44.0 [facility] ([facility]) ID Date Data Source [id number] 10/01/2019 01:58:00 PM EST [facility] ([facility]) Name Value Range Interpretation Code Description Data Poonam rce(s) Supporting Document(s) Neutrophils [#/volume] in Blood by Automated count 84.0 36.0-66 .0 [facility] ([facility]) ID Date Data Source [id number] 10/01/2019 01:58:00 PM EST [facility] ([facility]) Name Value Range Interpretation Code Description Data Poonam rce(s) Supporting Document(s) Platelets [#/volume] in Blood by Automated count 414 150-450 [facility] ([facility]) ID Date Data Source [id number] 10/01/2019 01:58:00 PM EST [facility] ([facility]) Name Value Range Interpretation Code Description Data Poonam rce(s) Supporting Document(s) Erythrocyte distribution width [Ratio] by Automated count 16.9 11.5-14.5 [facility] ([facility]) ID Date Data Source [id number] 10/01/2019 01:58:00 PM EST [facility] ([facility]) Name Value Range Interpretation Code Description Data Poonam rce(s) Supporting Document(s) Erythrocyte mean corpuscular hemoglobin concentration [Mass/volume] by Automated count 30.1 32.0-36.5 [facility] ID Date Data Source [id number] 10/01/2019 01:58:00 PM EST [facility] ([facility]) Name Value Range Interpretation Code Description Data Poonam rce(s) Supporting Document(s) Erythrocyte mean corpuscular hemoglobin [Entitic mass] by Au tomated count 25.9 27.0-33.0 [facility] ([facility]) ID Date Data Source [id number] 10/01/2019 01:58:00 PM EST [facility] ([facility]) Name Value Range Interpretation Code Description Data Poonam rce(s) Supporting Document(s) Erythrocyte mean corpuscular volume [Entitic volume] by Auto mated count 86.0 80.0-96.0 [facility] ([facility]) ID Date Data Source [id number] 10/01/2019 01:58:00 PM EST [facility] ([facility]) Name Value Range Interpretation Code Description Data Poonam rce(s) Supporting Document(s) Hematocrit [Volume Fraction] of Blood by Automated count 36.2 3 6.0-47.0 [facility] ([facility]) ID Date Data Source [id number] 10/01/2019 01:58:00 PM EST [facility] ([facility]) Name Value Range Interpretation Code Description Data Poonam rce(s) Supporting Document(s) Hemoglobin [Mass/volume] in Blood 10.9 12.0-15.5 [facility] ([facility]) ID Date Data Source [id number] 10/01/2019 01:58:00 PM EST [facility] ([facility]) Name Value Range Interpretation Code Description Data Poonam rce(s) Supporting Document(s) Erythrocytes [#/volume] in Blood by Automated count 4.21 4.00-5 .40 [facility] ([facility]) ID Date Data Source [id number] 10/01/2019 01:58:00 PM EST [facility] ([facility]) Name Value Range Interpretation Code Description Data Poonam rce(s) Supporting Document(s) Leukocytes [#/volume] in Blood by Automated count 12.8 4.0-10.0 [facility] ([facility]) ID Date Data Source [id number] 10/01/2019 01:58:00 PM EST [facility] ([facility]) Name Value Range Interpretation Code Description Data Poonam rce(s) Supporting Document(s) Lipase [Enzymatic activity/volume] in Serum or Plasma 296 73-3 93 [facility] ([facility]) ID Date Data Source [id number] 10/01/2019 01:58:00 PM EST [facility] ([facility]) Name Value Range Interpretation Code Description Data Poonam rce(s) Supporting Document(s) Albumin/Globulin [Mass Ratio] in Serum or Plasma 1.38 1.00-1.93 [facility] ([facility]) ID Date Data Source [id number] 10/01/2019 01:58:00 PM EST [facility] ([facility]) Name Value Range Interpretation Code Description Data Poonam rce(s) Supporting Document(s) Albumin [Mass/volume] in Serum or Plasma 4.0 3.2-5.2 [facility] ([facility]) ID Date Data Source [id number] 10/01/2019 01:58:00 PM EST MEDENT ([facility]) Name Value Range Interpretation Code Description Data Poonam rce(s) Supporting Document(s) Protein [Mass/volume] in Serum or Plasma 6.9 6.4-8.2 MED[facility] ([facility]) ID Date Data Source [id number] 10/01/2019 01:58:00 PM EST MEDENT ([facility]) Name Value Range Interpretation Code Description Data Poonam rce(s) Supporting Document(s) Bilirubin.direct [Mass/volume] in Serum or Plasma Laboratory test result 0.0-0.2 [facility] ([facility]) ID Date Data Source [id number] 10/01/2019 01:58:00 PM EST MEDENT ([facility]) Name Value Range Interpretation Code Description Data Poonam rce(s) Supporting Document(s) Bilirubin.total [Mass/volume] in Serum or Plasma 0.4 0.2-1.0 [facility] ([facility]) ID Date Data Source [id number] 10/01/2019 01:58:00 PM EST MEDENT ([facility]) Name Value Range Interpretation Code Description Data Poonam rce(s) Supporting Document(s) Alkaline phosphatase [Enzymatic activity/volume] in Serum or [place] sma 43 45-117 [facility] ([facility]) ID Date Data Source [id number] 10/01/2019 01:58:00 PM EST MEDENT ([facility]) Name Value Range Interpretation Code Description Data Poonam rce(s) Supporting Document(s) Alanine aminotransferase [Enzymatic activity/volume] in Seru m or Plasma 23 12-78 [facility] ([facility]) ID Date Data Source [id number] 10/01/2019 01:58:00 PM EST MED[facility] ([facility]) Name Value Range Interpretation Code Description Data Poonam rce(s) Supporting Document(s) Aspartate aminotransferase [Enzymatic activity/volume] in Se rum or Plasma 15 7-37 [facility] ([facility]) ID Date Data Source [id number] 10/01/2019 01:58:00 PM EST MED[facility] ([facility]) Name Value Range Interpretation Code Description Data Poonam rce(s) Supporting Document(s) Neutrophils [#/volume] in Blood by Automated count 10.8 1.5-8.5 [facility] ([facility]) ID Date Data Source [id number] 10/01/2019 01:58:00 PM EST MED[facility] ([facility]) Name Value Range Interpretation Code Description Data Poonam rce(s) Supporting Document(s) Nucleated erythrocytes/100 leukocytes [Ratio] in Blood by Au tomated count 0.0 0-0 [facility] ([facility]) ID Date Data Source [id number] 10/01/2019 01:58:00 PM EST MED[facility] ([facility]) Name Value Range Interpretation Code Description Data Poonam rce(s) Supporting Document(s) Immature granulocytes/100 leukocytes in Blood by Automated count 0.5 0-3.0 [facility] ([facility]) ID Date Data Source [id number] 10/01/2019 01:58:00 PM EST MED[facility] ([facility]) Name Value Range Interpretation Code Description Data Poonam rce(s) Supporting Document(s) Urine Color Laboratory test result MEDEN T ([facility]) Urine Appearance Laboratory test result MED[facility] ([facility]) pH of Urine 8.0 5.0-9.0 [facility] ([facility]) Urine Protein Laboratory test result [facility] ([facility]) Urine Specific [place] 1.002 1.002-1.035 M EDENT ([facility]) Urine Glucose (Ua) Laboratory test result MED[facility] ([facility]) Urine Bilirubin Laboratory test result [facility] ([facility]) Urine Ketones Laboratory test result [facility] ([facility] Urine Urobilinogen 0.2 0.0-2.0 MED[facility] ([facility]) Urine Nitrite Laboratory test result MED[facility] ([facility]) Urine Leukocyte Esterase Laboratory test result MED[facility] ([facility]) Urine Blood Laboratory test result MEDEN T ([facility]) Urine Bacteria (Auto) Laboratory test result [facility] ([facility]) Urine RBC (Auto) 0 0-3 [facility] ([facility]) Urine WBC (Auto) 0 0-3 [facility] ([facility]) Urine Squamous Epithelial Cells 0 0-6 [facility] ([facility]) Urine Mucus (Auto) Laboratory test result MED[facility] ([facility]) Urine Hyaline Casts (Auto) 0 0-1 MED ENT ([facility]) Amorphous sediment [Presence] in Urine sediment by Lig ht microscopy Laboratory test result [facility] ([facility]) ID Date Data Source [id number] 10/01/2019 01:58:00 PM EST MED[facility] ([facility]) Name Value Range Interpretation Code Description Data Poonam rce(s) Supporting Document(s) Basophils [#/volume] in Blood by Automated count 0.0 0.0-0.2 [facility] ([facility]) ID Date Data Source [id number] 10/01/2019 01:58:00 PM EST MED[facility] ([facility]) Name Value Range Interpretation Code Description Data Poonam rce(s) Supporting Document(s) Eosinophils [#/volume] in Blood by Automated count 0.0 0.0-0.5 [facility] ([facility]) ID Date Data Source [id number] 10/01/2019 01:58:00 PM EST MED[facility] ([facility]) Name Value Range Interpretation Code Description Data Poonam rce(s) Supporting Document(s) Monocytes [#/volume] in Blood by Automated count 0.7 0.0-0.8 [facility] ([facility]) ID Date Data Source [id number] 10/01/2019 01:58:00 PM EST MED[facility] ([facility]) Name Value Range Interpretation Code Description Data Poonam rce(s) Supporting Document(s) Lymphocytes [#/volume] in Blood by Automated count 1.2 1.5-5.0 [facility] ([facility]) Procedure Social History Code Duration Value Status Description Data Source(s ) Smoking 10/17/2020 12:00:00 AM EST Never Smoker completed Never S moker eCW1 ([facility]) Smoking 10/17/2020 12:00:00 AM EST Never Smoker completed Never S moker eCW1 ([facility]) Smoking 10/17/2020 12:00:00 AM EST Never Smoker completed Never S moker eCW1 ([facility]) Smoking 10/17/2020 12:00:00 AM EST Never Smoker completed Never S moker eCW1 ([facility]) 10/06/2020 11:09:21 AM EST Unknown if ever smoked comp leted Unknown if ever smoked [facility] Smoking 10/06/2020 11:09:00 AM EST Unknown if ever smoked comp leted Unknown if ever smoked [facility] 10/04/2020 11:22:00 AM EST Unknown if ever smoked comp leted Unknown if ever smoked [facility] Smoking 10/04/2020 11:22:00 AM EST Unknown if ever smoked comp leted Unknown if ever smoked [facility] Smoking 07/18/2020 12:00:00 AM EDT Never Smoker completed Never S moker eCW1 ([facility]) Smoking 07/18/2020 12:00:00 AM EDT Never Smoker completed Never S moker eCW1 ([facility]) Smoking 07/18/2020 12:00:00 AM EDT Never Smoker completed Never S moker eCW1 ([facility]) Smoking 07/18/2020 12:00:00 AM EDT Never Smoker completed Never S moker eCW1 ([facility]) Smoking 07/18/2020 12:00:00 AM EDT Never Smoker completed Never S moker eCW1 ([facility]) Smoking 07/18/2020 12:00:00 AM EDT Never Smoker completed Never S moker eCW1 ([facility]) Smoking 07/18/2020 12:00:00 AM EDT Never Smoker completed Never S moker eCW1 ([facility]) Smoking 07/10/2020 12:00:00 AM EDT Never Smoker completed Never S moker eCW1 ([facility]) Smoking 07/10/2020 12:00:00 AM EDT Never Smoker completed Never S moker eCW1 ([facility]) Smoking 07/10/2020 12:00:00 AM EDT Never Smoker completed Never S moker eCW1 ([facility]) Smoking 07/10/2020 12:00:00 AM EDT Never Smoker completed Never S moker eCW1 ([facility]) Smoking 07/10/2020 12:00:00 AM EDT Never Smoker completed Never S moker eCW1 ([facility]) Smoking 07/01/2020 12:00:00 AM EDT Never Smoker completed Never S moker eCW1 ([facility]) Smoking 07/01/2020 12:00:00 AM EDT Never Smoker completed Never S moker eCW1 ([facility]) Smoking 02/28/2020 12:00:00 AM EDT Never Smoker completed Never S moker eCW1 ([facility]) Smoking 02/28/2020 12:00:00 AM EDT Never Smoker completed Never S moker eCW1 ([facility]) Smoking 02/28/2020 12:00:00 AM EDT Never Smoker completed Never S moker eCW1 ([facility]) Smoking 02/28/2020 12:00:00 AM EDT Never Smoker completed Never S moker eCW1 ([facility]) Smoking 02/28/2020 12:00:00 AM EDT Never Smoker completed Never S moker eCW1 ([facility]) Smoking 02/28/2020 12:00:00 AM EDT Never Smoker completed Never S moker eCW1 ([facility]) Smoking 11/22/2019 12:00:00 AM EST Never Smoker completed Never S moker eCW1 ([facility]) Vital Signs ID Date Data Source UNK Name Value Range Interpretation Code Description Data Source(s) Diastolic blood pressure 58 mm[Hg] 58 mm[Hg] eCW1 ([facility]) Systolic blood pressure 102 mm[Hg] 102 mm[Hg] e CW1 ([facility]) Body temperature 97.8 [degF] 97.8 [degF] eCW1 ( [facility]) Respiratory rate 20 /min 20 /min eCW1 ([facility]) Heart rate 87 /min 87 /min eCW1 ([facility]) Body mass index (BMI) [Ratio] 20.64 kg/m2 20.64 kg/m2 eCW1 ([facility]) Body height 67 [in_i] 67 [in_i] eCW1 ([facility]) Body weight 131.8 [lb_av] 131.8 [lb_av] eCW1 ([facility]) Body temperature 97.5 [degF] 97.5 [degF] [facility] ([facility] [place] body weight 135 [lb_av] 135 [lb_av] MEDEN T ([facility] ) Body mass index (BMI) [Ratio] 20.4 kg/m2 20.4 k g/m2 MED[facility] ([facility] ) Body weight 130.00 [lb_av] 130.00 [lb_av] MEDEN T ([facility] ) Body height 67 [in_i] 67 [in_i] MED[facility] ([facility] ) 5'7" Respiratory rate 12 /min 12 /min MED[facility] ( [facility] ) Diastolic blood pressure 58 mm[Hg] 58 mm[Hg] eCW1 ([facility]) Systolic blood pressure 100 mm[Hg] 100 mm[Hg] e CW1 ([facility]) Body temperature 98.2 [degF] 98.2 [degF] eCW1 ( [facility]) Respiratory rate 20 /min 20 /min eCW1 ([facility]) Heart rate 71 /min 71 /min eCW1 ([facility]) Body mass index (BMI) [Ratio] 20.20 kg/m2 20.20 kg/m2 eCW1 ([facility]) Body height 67 [in_i] 67 [in_i] eCW1 ([facility]) Body weight 129.0 [lb_av] 129.0 [lb_av] eCW1 ([facility]) Diastolic blood pressure 70 mm[Hg] 70 mm[Hg] eCW1 ([facility]) Systolic blood pressure 112 mm[Hg] 112 mm[Hg] e CW1 ([facility]) Body temperature 98.1 [degF] 98.1 [degF] eCW1 ( [facility]) Respiratory rate 20 /min 20 /min eCW1 ([facility]) Heart rate 84 /min 84 /min eCW1 ([facility]) Body mass index (BMI) [Ratio] 20.20 kg/m2 20.20 kg/m2 eCW1 ([facility]) Body height 67 [in_i] 67 [in_i] eCW1 ([facility]) Body weight 129.0 [lb_av] 129.0 [lb_av] eCW1 ([facility]) Diastolic blood pressure 62 mm[Hg] 62 mm[Hg] eCW1 ([facility]) Systolic blood pressure 100 mm[Hg] 100 mm[Hg] e CW1 ([facility]) Body temperature 97.4 [degF] 97.4 [degF] eCW1 ( [facility]) Respiratory rate 20 /min 20 /min eCW1 ([facility]) Heart rate 76 /min 76 /min eCW1 ([facility]) Body mass index (BMI) [Ratio] 20.05 kg/m2 20.05 kg/m2 eCW1 ([facility]) Body height 67 [in_i] 67 [in_i] eCW1 ([facility]) Body weight 128.0 [lb_av] 128.0 [lb_av] eCW1 ([facility]) [place] body weight 135 [lb_av] 135 [lb_av] MEDEN T ([facility]) Body mass index (BMI) [Ratio] 20.4 kg/m2 20.4 k g/m2 MED[facility] ([facility]) Body weight 130.00 [lb_av] 130.00 [lb_av] MEDEN T ([facility]) Body height 67 [in_i] 67 [in_i] MEDENT ([facility]) 5'7" Respiratory rate 12 /min 12 /min MED[facility] ( [facility]) [place] body weight 135 [lb_av] 135 [lb_av] MEDEN T ([facility]) Body mass index (BMI) [Ratio] 20.4 kg/m2 20.4 k g/m2 MED[facility] ([facility]) Body weight 130.00 [lb_av] 130.00 [lb_av] MEDEN T ([facility]) Body height 67 [in_i] 67 [in_i] MEDENT ([facility]) 5'7" Respiratory rate 12 /min 12 /min MEDENT ( [facility]) Body temperature 97.2 [degF] 97.2 [degF] eCW1 ( [facility]) Respiratory rate 20 /min 20 /min eCW1 ([facility]) Heart rate 92 /min 92 /min eCW1 ([facility]) Body mass index (BMI) [Ratio] 20.23 kg/m2 20.23 kg/m2 W1 ([facility]) Body height 67 [in_i] 67 [in_i] eCW1 ([facility]) Body weight 129.2 [lb_av] 129.2 [lb_av] eCW1 ([facility]) Diastolic blood pressure 64 mm[Hg] 64 mm[Hg] eCW1 ([facility]) Systolic blood pressure 108 mm[Hg] 108 mm[Hg] e CW1 ([facility]) Body weight 55.793 kg 55.793 kg MEDENT ([facility]) Body mass index (BMI) [Ratio] 19.3 kg/m2 19.3 k g/m2 MEDENT ([facility]) Body weight 123.00 [lb_av] 123.00 [lb_av] MEDEN T ([facility], ) Body height 67 [in_i] 67 [in_i] MEDENT ([facility] ) 5'7" Body mass index (BMI) [Ratio] 18.3 kg/m2 18.3 k g/m2 MEDENT ([facility], ) Body weight 117.00 [lb_av] 117.00 [lb_av] MEDEN T ([facility] ) Body height 67 [in_i] 67 [in_i] MEDENT ([facility], ) 5'7" Respiratory rate 12 /min 12 /min MED[facility] ( [facility] ) Heart rate 68 /min 68 /min MED[facility] ([facility] ) Diastolic blood pressure 64 mm[Hg] 64 mm[Hg] MED[facility] ([facility] ) Systolic blood pressure 120 mm[Hg] 120 mm[Hg] M EDENT ([facility] ) Respiratory rate 20 /min 20 /min eCW1 ([facility]) Heart rate 83 /min 83 /min eCW1 ([facility]) Body mass index (BMI) [Ratio] 20.70 kg/m2 20.70 kg/m2 [facility] ([facility]) Body height 67 [in_us] 67 [in_us] eCW1 ([facility]) Body weight Measured 132.2 [lb_av] 132.2 [lb_av ] eCW1 ([facility]) Diastolic blood pressure 62 mm[Hg] 62 mm[Hg] eCW1 ([facility]) Systolic blood pressure 110 mm[Hg] 110 mm[Hg] e CW1 ([facility]) Body temperature 98.1 [degF] 98.1 [degF] eCW1 ( [facility]) Diastolic blood pressure 76 mm[Hg] 76 mm[Hg] eCW1 ([facility]) Systolic blood pressure 126 mm[Hg] 126 mm[Hg] e CW1 ([facility]) Body temperature 97.0 [degF] 97.0 [degF] eCW1 ( [facility]) Respiratory rate 18 /min 18 /min eCW1 ([facility]) Heart rate 87 /min 87 /min eCW1 ([facility]) Body mass index (BMI) [Ratio] 20.67 kg/m2 20.67 kg/m2 eCW1 ([facility]) Body height 67 [in_us] 67 [in_us] eCW1 ([facility]) Body weight Measured 132.0 [lb_av] 132.0 [lb_av ] eCW1 ([facility]) Diastolic blood pressure 64 mm[Hg] 64 mm[Hg] eCW1 ([facility]) Systolic blood pressure 116 mm[Hg] 116 mm[Hg] e CW1 ([facility]) Body temperature 97.0 [degF] 97.0 [degF] eCW1 ( [facility]) Respiratory rate 18 /min 18 /min eCW1 ([facility]) Heart rate 89 /min 89 /min eCW1 ([facility]) Body mass index (BMI) [Ratio] 20.36 kg/m2 20.36 kg/m2 eCW1 ([facility]) Body height 67 [in_us] 67 [in_us] eCW1 ([facility]) Body weight Measured 130.0 [lb_av] 130.0 [lb_av ] eCW1 ([facility]) Body mass index (BMI) [Ratio] 20.0 kg/m2 20.0 k g/m2 [facility] ([facility]) Body weight 131.62 [lb_av] 131.62 [lb_av] MEDEN T ([facility]) Diastolic blood pressure 68 mm[Hg] 68 mm[Hg] eCW1 ([facility]) Systolic blood pressure 104 mm[Hg] 104 mm[Hg] e CW1 ([facility]) Body temperature 97.4 [degF] 97.4 [degF] eCW1 ( [facility]) Respiratory rate 16 /min 16 /min eCW1 ([facility]) Heart rate 83 /min 83 /min eCW1 ([facility]) Body mass index (BMI) [Ratio] 20.52 kg/m2 20.52 kg/m2 eCW1 ([facility]) Body height 67 [in_us] 67 [in_us] eCW1 ([facility]) Body weight Measured 131 [lb_av] 131 [lb_av] eC W1 ([facility]) Patient Treatment Plan of Care Planned Activity Planned Date Details Description Data Source (s) Nystatin [id number] UNT/ML Topical Cream 07/10/2020 12:00:00 AM EDT eCW1 ([facility]) valganciclovir 450 MG Oral Tablet 07/10/2020 12:00:00 AM EDT eCW1 ([facility]) Nystatin [id number] UNT/ML Topical Cream 07/10/2020 12:00:00 AM EDT eCW1 ([facility]) valganciclovir 450 MG Oral Tablet 07/10/2020 12:00:00 AM EDT eCW1 ([facility]) Nystatin [id number] UNT/ML Topical Cream 07/10/2020 12:00:00 AM EDT eCW1 ([facility]) valganciclovir 450 MG Oral Tablet 07/10/2020 12:00:00 AM EDT eCW1 ([facility]) Nystatin [id number] UNT/ML Topical Cream 07/10/2020 12:00:00 AM EDT eCW1 ([facility]) valganciclovir 450 MG Oral Tablet 07/10/2020 12:00:00 AM EDT eCW1 ([facility]) Nystatin [id number] UNT/ML Topical Cream 07/10/2020 12:00:00 AM EDT eCW1 ([facility]) valganciclovir 450 MG Oral Tablet 07/10/2020 12:00:00 AM EDT eCW1 ([facility]) Rivaroxaban 20 MG 07/01/2020 12:00:00 AM EDT eCW1 ([facility]) Rivaroxaban 20 MG 07/01/2020 12:00:00 AM EDT eCW1 ([facility]) mesalamine 1200 MG Delayed Release Oral Tablet 06/24/2020 12:00:00 AM EDT eCW1 ([facility]) pregabalin 50 MG Oral Capsule [Lyrica] 04/01/2020 12:00:00 AM EDT eCW1 ([facility]) pregabalin 50 MG Oral Capsule [Lyrica] 04/01/2020 12:00:00 AM EDT eCW1 ([facility]) pregabalin 50 MG Oral Capsule [Lyrica] 04/01/2020 12:00:00 AM EDT eCW1 ([facility]) Docusate Sodium 100 MG Oral Capsule [Colace] 01/14/2020 12:00:00 AM EDT eCW1 ([facility]) Docusate Sodium 100 MG Oral Capsule [Colace] 01/14/2020 12:00:00 AM EDT eCW1 ([facility]) Hydrocortisone 25 MG/ML Topical Cream [Anusol HC] 01/07/2020 12: 00:00 AM EDT eCW1 ([facility]) Hydrocortisone 25 MG/ML Topical Cream [Anusol HC] 01/07/2020 12: 00:00 AM EDT eCW1 ([facility]) Hydrocortisone 25 MG/ML Topical Cream [Anusol HC] 01/07/2020 12: 00:00 AM EDT eCW1 ([facility]) Hydrocortisone 25 MG/ML Topical Cream [Anusol HC] 01/07/2020 12: 00:00 AM EDT eCW1 ([facility]) Hydrocortisone 25 MG/ML Topical Cream [Anusol HC] 01/07/2020 12: 00:00 AM EDT eCW1 ([facility]) Hydrocortisone 25 MG/ML Topical Cream [Anusol HC] 01/07/2020 12: 00:00 AM EDT eCW1 ([facility]) doxycycline hyclate 100 MG Oral Capsule 12/24/2019 12:00:00 AM EDT eCW1 ([facility]) doxycycline hyclate 100 MG Oral Capsule 12/24/2019 12:00:00 AM EDT eCW1 ([facility]) Depend Pant Medium 1 ea 11/22/2019 12:00:00 AM EST eCW1 ([facility]) Depend Pant Medium 1 ea 11/22/2019 12:00:00 AM EST eCW1 ([facility]) Depend Pant Medium 1 ea 11/22/2019 12:00:00 AM EST eCW1 ([facility]) Depend Pant Medium 1 ea 11/22/2019 12:00:00 AM EST eCW1 ([facility]) Calcium Carbonate 1000 MG Chewable Tablet [Tums] 11/22/2019 12:00:0 0 AM EST eCW1 ([facility]) Depend Pant Medium 1 ea 11/22/2019 12:00:00 AM EST eCW1 ([facility]) Calcium Carbonate 1000 MG Chewable Tablet [Tums] 11/22/2019 12:00:0 0 AM EST eCW1 ([facility]) Depend Pant Medium 1 ea 11/22/2019 12:00:00 AM EST eCW1 ([facility]) Hydrocortisone 25 MG/ML Topical Cream [Anusol HC] 10/16/2019 12: 00:00 AM EST eCW1 ([facility]) calcium polycarbophil 625 MG Oral Tablet [FiberCon] 10/16/19 12:00:00 AM EST eCW1 ([facility]) Calamine 80 MG/ML / Pramoxine hydrochloride 10 MG/ML T opical Lotion [Caladryl] 09/11/2019 12:00:00 AM EST eCW1 ([facility]) Valcyclovir-1000 mg TID 500 mg 09/11/2019 12:00:00 AM EST eCW1 ([facility])
[2020-11-06 12:43] LABS: BASO % 0.3 % (0.0-1.0); EOS % 0.3 % (0.0-3.0); HEMATOCRIT 28.8 % (36.0-47.0); HEMOGLOBIN 8.2 g/dl (12.0-15.5); LYMPH # 0.9 10^3/uL (1.5-5.0); LYMPH % 9.3 % (24.0-44.0); MEAN CORPUSCULAR HEMOGLOBIN 25.2 pg (27.0-33.0); MEAN CORPUSCULAR HGB CONC 28.5 g/dl (32.0-36.5); MEAN CORPUSCULAR VOLUME 88.6 fl (80.0-96.0); MONO # 0.3 10^3/uL (0.0-0.8); MONO % 3.4 % (2.0-8.0); NEUTROPHILS # 8.5 10^3/uL (1.5-8.5); NEUTROPHILS % 85.3 % (36.0-66.0); RED BLOOD COUNT 3.25 10^6/uL (4.00-5.40); WHITE BLOOD COUNT 9.9 10^3/uL (4.0-10.0)
[2020-11-06 13:00] LABS: INR 0.92; PARTIAL THROMBOPLASTIN TIME 23.3 SECONDS (24.2-38.5); PROTHROMBIN TIME 12.5 SECONDS (12.5-14.3)
[2020-11-06 13:06] LABS: PLATELET COUNT, AUTOMATED 405 10^3/uL (150-450)
--- NOTE | 2020-11-06 13:07 | REP ---
INDICATION: gi bleeding COMPARISON: Comparison CT study July 03, 2020.. TECHNIQUE: Helical scanning is acquired in 4 mm axial images were reformatted. Coronal and sagittal MPR images were generated and reviewed. 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 The lung bases show no evidence of infiltrate or pleural effusion. The liver and the spleen are normal in size homogeneous in texture. There is a descending duodenal diverticulum. No abnormality is noted in the pancreas. The gallbladder is surgically absent. Normal adrenal glands are visible bilaterally. There are 2 intrarenal calculi in the lower pole the right kidney, the largest of which measures 4 mm in greatest diameter. No intrarenal calculi are noted on the left. There is mild bilateral hydronephrosis and hydroureter. No etiology is seen for this. There is considerable spray artifact obscuring the distal ureters and ureterovesical junction from the hip arthroplasties. The finding is unchanged from the study July 03, 2020. The visualized portions of the bladder are unremarkable. No retroperitoneal mass or adenopathy is seen. No ureteral calculus is observed. There is a small cyst in the iliac fossa on the right which may be ovarian. This measures 2.5 x 1.7 cm. It is essentially unchanged from the July 03, 2020 study. Uterus is surgically absent. No left adnexal abnormality is observed. Sclerotic changes are again noted in the left pubic bone and in the sacrum question Paget's disease versus healed fractured. This is unchanged. No acute bony abnormality is observed. Small and large bowel loops are unremarkable in the abdomen and pelvis. No bowel mass or evidence of obstruction is seen. The appendix is surgically absent. IMPRESSION: Mild bilateral pelviectasis and ureterectasis unchanged from the prior study. No abnormality noted in the gastrointestinal tract. Intrarenal nephrolithiasis on the right. Post cholecystectomy and hysterectomy. <Electronically signed by Cosme Lemus > 11/06/20 [id number]
[2020-11-06 13:44] LABS: ALBUMIN 3.3 GM/DL (3.2-5.2); ALT/SGPT 18 U/L (12-78); AMYLASE 110 U/L (25-115); BILIRUBIN,DIRECT < 0.1 MG/DL (0.0-0.2); BILIRUBIN,TOTAL 0.1 MG/DL (0.2-1.0); LIPASE 338 U/L (73-393); TOTAL PROTEIN 6.4 GM/DL (6.4-8.2)
[2020-11-06] MEDS ORDERED: MYCO500T PO (15:05)
[2020-11-06] MEDS ORDERED: XARE20TA PO (15:05)
[2020-11-06] MEDS ORDERED: PROC1CRE5 PR (15:05)
[2020-11-06] MEDS ORDERED: [UNRECOGNIZED DRUG - REMARK] (15:08)
--- OUTSIDE RECORDS SUMMARY | 2020-11-06 16:02 | CCD ---
Author Author [facility] Organization [facility] Address Unknown Phone Unavailable Care Team Providers Care Employment Consultant Name Role Phone WILLIAM, H KENJI INSTRUCTOR WATCH ASSEMBLY Unavailable Unavailable WILLIAM, H KENJI INSTRUCTOR WATCH ASSEMBLY Unavailable Unavailable WILLIAM, H KENJI INSTRUCTOR WATCH ASSEMBLY Unavailable Unavailable WILLIAM, H KENJI INSTRUCTOR WATCH ASSEMBLY Unavailable Unavailable WILLIAM, H KENJI INSTRUCTOR WATCH ASSEMBLY Unavailable Unavailable WILLIAM, H KENJI INSTRUCTOR WATCH ASSEMBLY Unavailable Unavailable WILLIAM, H KENJI INSTRUCTOR WATCH ASSEMBLY Unavailable Unavailable WILLIAM, H KENJI INSTRUCTOR WATCH ASSEMBLY Unavailable Unavailable WILLIAM, H KENJI INSTRUCTOR WATCH ASSEMBLY Unavailable Unavailable WILLIAM, H KENJI INSTRUCTOR WATCH ASSEMBLY Unavailable Unavailable WILLIAM, H KENJI INSTRUCTOR WATCH ASSEMBLY Unavailable Unavailable WILLIAM, H KENJI INSTRUCTOR WATCH ASSEMBLY Unavailable Unavailable WILLIAM, H KENJI INSTRUCTOR WATCH ASSEMBLY Unavailable Unavailable WILLIAM, H KENJI INSTRUCTOR WATCH ASSEMBLY Unavailable Unavailable WILLIAM, H KENJI INSTRUCTOR WATCH ASSEMBLY Unavailable Unavailable WILLIAM, H KENJI INSTRUCTOR WATCH ASSEMBLY Unavailable Unavailable WILLIAM, H KENJI INSTRUCTOR WATCH ASSEMBLY Unavailable Unavailable WILLIAM, H KENJI INSTRUCTOR WATCH ASSEMBLY Unavailable Unavailable WILLIAM, H KENJI INSTRUCTOR WATCH ASSEMBLY Unavailable Unavailable WILLIAM, H KENJI INSTRUCTOR WATCH ASSEMBLY Unavailable Unavailable WILLIAM, H KENJI INSTRUCTOR WATCH ASSEMBLY Unavailable Unavailable WILLIAM, H KENJI INSTRUCTOR WATCH ASSEMBLY Unavailable Unavailable WILLIAM, H KENJI INSTRUCTOR WATCH ASSEMBLY Unavailable Unavailable WILLIAM, H KENJI INSTRUCTOR WATCH ASSEMBLY Unavailable Unavailable WILLIAM, H KENJI INSTRUCTOR WATCH ASSEMBLY Unavailable Unavailable WILLIAM, H KENJI INSTRUCTOR WATCH ASSEMBLY Unavailable Unavailable WILLIAM, H KENJI INSTRUCTOR WATCH ASSEMBLY Unavailable Unavailable WILLIAM, H KENJI INSTRUCTOR WATCH ASSEMBLY Unavailable Unavailable WILLIAM, H KENJI INSTRUCTOR WATCH ASSEMBLY Unavailable Unavailable WILLIAM, H KENJI INSTRUCTOR WATCH ASSEMBLY Unavailable Unavailable WILLIAM, H KENJI INSTRUCTOR WATCH ASSEMBLY Unavailable Unavailable WILLIAM, H KENJI INSTRUCTOR WATCH ASSEMBLY Unavailable Unavailable WILLIAM, H KENJI INSTRUCTOR WATCH ASSEMBLY Unavailable Unavailable WILLIAM, H KENJI INSTRUCTOR WATCH ASSEMBLY Unavailable Unavailable WILLIAM, H KENJI INSTRUCTOR WATCH ASSEMBLY Unavailable Unavailable WILLIAM, H KENJI INSTRUCTOR WATCH ASSEMBLY Unavailable Unavailable WILLIAM, H KENJI INSTRUCTOR WATCH ASSEMBLY Unavailable Unavailable WILLIAM, H KENJI INSTRUCTOR WATCH ASSEMBLY Unavailable Unavailable WILLIAM, H KENJI INSTRUCTOR WATCH ASSEMBLY Unavailable Unavailable WILLIAM, H KENJI INSTRUCTOR WATCH ASSEMBLY Unavailable Unavailable WILLIAM, H KENJI INSTRUCTOR WATCH ASSEMBLY Unavailable Unavailable WILLIAM, H KENJI INSTRUCTOR WATCH ASSEMBLY Unavailable Unavailable WILLIAM, H KENJI INSTRUCTOR WATCH ASSEMBLY Unavailable Unavailable WILLIAM, H KENJI INSTRUCTOR WATCH ASSEMBLY Unavailable Unavailable WILLIAM, H KENJI INSTRUCTOR WATCH ASSEMBLY Unavailable Unavailable WILLIAM, H KENJI INSTRUCTOR WATCH ASSEMBLY Unavailable Unavailable WILLIAM, H KENJI INSTRUCTOR WATCH ASSEMBLY Unavailable Unavailable WILLIAM, H KENJI INSTRUCTOR WATCH ASSEMBLY Unavailable Unavailable WILLIAM, H KENJI INSTRUCTOR WATCH ASSEMBLY Unavailable Unavailable WILLIAM, H KENJI INSTRUCTOR WATCH ASSEMBLY Unavailable Unavailable WILLIAM, H KENJI INSTRUCTOR WATCH ASSEMBLY Unavailable Unavailable WILLIAM, H KENJI INSTRUCTOR WATCH ASSEMBLY Unavailable Unavailable WILLIAM, H KENJI INSTRUCTOR WATCH ASSEMBLY Unavailable Unavailable WILLIAM, H KENJI INSTRUCTOR WATCH ASSEMBLY Unavailable Unavailable WILLIAM, H KENJI INSTRUCTOR WATCH ASSEMBLY Unavailable Unavailable BraulioClaire wong MD Unavailable Unavailable BraulioClaire wong MD Unavailable Unavailable BraulioClaire wong MD Unavailable Unavailable BraulioClaire wong MD Unavailable Unavailable BraulioClaire wong MD Unavailable Unavailable BraulioClaire wong MD Unavailable Unavailable BraulioClaire wong MD Unavailable Unavailable RbaulioClaire wong MD Unavailable Unavailable BraulioClaire wong MD [...] Unavailable Roberto O Sami BHARDWAJ Unavailable Unavailable Roberto O Saim BHARDWAJ Unavailable Unavailable Roberto O Anoopah Unavailable Unavailable Dipti Mejia MD Unavailable Unavailable Dipti Mejia MD Unavailable Unavailable Dipti Mejia MD Unavailable Unavailable Dipti Mejia MD Unavailable Unavailable Roberto O Anoopah Unavailable Unavailable Roberto O Sami BHARDWAJ Unavailable Unavailable Dipti Mejia MD Unavailable Unavailable [...] Unavailable Roberto O Sami BHARDWAJ Unavailable Unavailable Dipti Mejia MD Unavailable Unavailable Dipti Mejia MD Unavailable Unavailable Dipti Mejia MD Unavailable Unavailable Dipti Mejia MD Unavailable Unavailable Roberto O Sami BHARDWAJ Unavailable Unavailable Roberto O Anoopah Unavailable Unavailable Max Coffey MD Unavailable Unavailable [...] Unavailable Vaneenenaam, Chela Reno MD Unavailable Unavailable Vaneenpuneet, Chela Reno MD Unavailable Unavailable Vaneenenaam, Chela Reno MD Unavailable Unavailable Vaneencinthiaam, Chela Reno MD Unavailable Unavailable Vaneenenaam, Chela Reno MD Unavailable Unavailable Vaneenenaam, Chela Reno MD Unavailable Unavailable Vaneencinthiaam, Chela Reno MD Unavailable Unavailable VanmarcelaamChela MD Unavailable Unavailable Vanmarcelaam, Chela Reno MD Unavailable Unavailable Dipti Mejia [...] Unavailable Unavailable MARKWITH, DARLENE BHARDWAJ Unavailable Unavailable MARKWITHDARLENE MD Unavailable Unavailable MARKDARLENE COMBS MD Unavailable Unavailable Re-disclosure Warning The records that [...] is protected by Article 27-F of the [facility] Public Health law. If you continue you may have access to information: Regarding HIV / AIDS; Provided by facilities licensed or operated by the [facility] Office of Mental Health; or Provided by the [facility] Office for People With Developmental Disabilities. If such information is present, then the following [facility] mandated warning applies: This information has been [...] law may result in a fine or nursing home sentence or both. A general authorization for the release of medical or other information is NOT sufficient authorization for further disc losure. Allergies and Adverse Reactions Type Description Substance Reaction Status Data Source(s ) Drug allergy levofloxacin Levofloxacin Hives U [facility] Drug allergy meloxicam meloxicam Nausea/Vomit/Gastric U [facility] Drug allergy procaine procaine [facility] Drug allergy gabapentin gabapentin Rash U [facility] Drug allergy clarithromycin Clarithromycin Nausea/Vomit/Gastric U [facility] Drug allergy famotidine famotidine Nausea/Vomit/Gastric U [facility] Drug allergy nitrofurantoin nitrofurantoin Other, not listed U [facility] Drug allergy doxycycline doxycycline Nausea/Vomit/Gastric U [facility] Drug allergy cephalexin cephalexin Anaphylaxis U [facility] Drug allergy Antihistamines - Alkylamine Antihistamines - Alkylamine Rash U [facility] Drug allergy Sulfa (Sulfonamide Antibiotics) Sulfa (Sulfonami de Antibiotics) [facility] Drug allergy Penicillins Penicillin Anaphylaxis U [facility] Drug allergy Iodinated Contrast Media Iodinated Contrast Media Anaphy laxis U [facility] Drug allergy No Known Drug Allergies No Known Drug Allergies [facility] Drug allergy contrast dye contrast dye [facility] BRANDNAME ANTIHISTAMINE ANTIHISTAMINE [facility] BRANDNAME PEPCID PEPCID [facility] BRANDNAME NOVOCAIN NOVOCAIN [facility] BRANDNAME LEVAQUIN LEVUIN [facility] BRANDNAME KEFLEX KEFLEX [facility] BRANDNAME BIAXIN BIAXIN [facility] Drug allergy DOXYCYCLINE DOXYCYCLINE [facility] CLASS PENICILLINS (CLASS) PENICILLINS (CLASS) [facility] CLASS SULFA (sulfonamide) SULFA (sulfonamide) [facility] Drug allergy Levaquin Drug allergy Hives Active eCW1 ([facility]) Drug allergy Doxycycline Hyclate Doxycycline N/V Active eC W1 ([facility]) Drug allergy Mobic meloxicam Nausea/Vomiting Active eCW1 ( [facility]) Drug allergy Pepcid Famotidine vomiting Active eCW1 ([facility]) Drug allergy Keflex Cephalexin Anaphylaxis Active eCW1 ([facility]) Novocain Novocain Novocain passed out Active eCW1 ([facility]) Biaxin Biaxin Clarithromycin 250 MG Oral Tablet [Biaxin] dysp epsia Active eCW1 ([facility]) antihistamines antihistamines antihistamines Rash Active eC W1 ([facility]) contrast dye contrast dye contrast dye can't breathe Active eCW1 ([facility]) macrodantin macrodantin NITROFURANTOIN, MACR OCRYSTALS 50 MG Oral Capsule [Macrodantin] , paresthesias Active eCW1 ([facility]) Novocain Novocain Novocain passed out Active eCW1 ([facility]) Biaxin Biaxin Clarithromycin 250 MG Oral Tablet [Biaxin] dysp epsia Active eCW1 ([facility]) Levaquin Levaquin Levofloxacin 750 MG Oral Tablet [Levaquin] Hive s Active eCW1 ([facility]) macrodantin macrodantin NITROFURANTOIN, MACR OCRYSTALS 50 MG Oral Capsule [Macrodantin] , paresthesias Active eCW1 ([facility]) antihistamines antihistamines antihistamines Rash Active eC W1 ([facility]) contrast dye contrast dye contrast dye can't breathe Active eCW1 ([facility]) Novocain Novocain Novocain passed out Active eCW1 ([facility]) Biaxin Biaxin Biaxin dyspepsia Active eCW1 ([facility]) contrast dye contrast dye contrast dye can't breathe Active eCW1 ([facility]) antihistamines antihistamines antihistamines Rash Active eC W1 ([facility]) macrodantin macrodantin macrodantin , paresthesias Active eCW1 ( [facility]) Novocain Novocain Novocain passed out Active eCW1 ([facility]) Biaxin Biaxin Clarithromycin 250 MG Oral Tablet [Biaxin] dysp epsia Active eCW1 ([facility]) antihistamines antihistamines antihistamines Rash Active eC W1 ([facility]) contrast dye contrast dye contrast dye can't breathe Active eCW1 ([facility]) macrodantin macrodantin NITROFURANTOIN, MACR OCRYSTALS 50 MG Oral Capsule [Macrodantin] , paresthesias Active eCW1 ([facility]) Family History Family Member Name Family Member Gender Family Member Status Date o f Status Description Data Source(s) Unknown Unknown Problem MEDENT ([facility]) Unknown Female Problem MEDENT ([facility]) Unknown Female Problem [facility] ([facility]) Unknown Female Problem [facility] ([facility]) Encounters Encounter Providers Location Date Indications Data Source(s ) [place] [address] [facility] [address] 10/20/2020 12:00:00 AM EST eCW1 ([facility]) [place] [address] [facility] [address] 10/17/2020 12:00:00 AM EST eCW1 ([facility]) [place] [address] [facility] [address] 10/17/2020 12:00:00 AM EST eCW1 ([facility]) [place] [address] [facility] [address] 10/16/2020 12:00:00 AM EST eCW1 [facility] [place] [address] [facility] [address] 10/09/2020 12:00:00 AM EST eCW1 ([facility]) Inpatient Attender: JERRELL Mallory nder: Max Coffey MDAdmitter: JERRELL SPANGLER MD 10/04/2020 12:07:00 PM EST - 10/06/2020 12:50:00 PM EST PNEUMONIA [facility] PNEUMONIA Patient discharged. Unknown [address] [facility] [address] 10/03/2020 12:00:00 AM EST eCW1 ([facility]) [place] [address] [facility] [address] 10/03/2020 12:00:00 AM EST eCW1 ([facility]) [place] [address] [facility] [address] 09/04/2020 12:00:00 AM EST eCW1 ([facility]) [place] [address] [facility] [address] 07/29/2020 12:00:00 AM EST eCW1 ([facility]) Outpatient Attender: Chela Epps MD Physical Therap y 07/23/2020 02:44:00 PM EST [facility] ([facility]) Office Visit Attender: Sami Mejia MD Main office - [facility] 07/22/2020 12:15:00 PM EST [facility] ([facility]) [place] [address] [facility] [address] 07/18/2020 12:00:00 AM EDT eCW1 ([facility]) [place] [address] [facility] [address] 07/18/2020 12:00:00 AM EDT eCW1 ([facility]) [place] [address] [facility] [address] 07/14/2020 12:00:00 AM EDT eCW1 ([facility]) [place] [address] [facility] [address] 07/14/2020 12:00:00 AM EDT eCW1 ([facility]) [place] [address] [facility] [address] 07/11/2020 12:00:00 AM EDT eCW1 ([facility]) [place] [address] [facility] [address] 07/10/2020 12:00:00 AM EDT eCW1 ([facility]) [place] [address] [facility] [address] 07/09/2020 12:00:00 AM EDT eCW1 ([facility]) [place] [address] [facility] [address] 07/04/2020 12:00:00 AM EDT eCW1 ([facility]) [place] [address] [facility] [address] 07/01/2020 12:00:00 AM EDT eCW1 ([facility]) [place] [address] [facility] [address] 06/27/2020 12:00:00 AM EDT eCW1 ([facility]) Outpatient Attender: Sami Mejia MDConsultant: Wali wong MD 04/30/2020 10:25:54 AM EDT [facility] Office Visit Attender: Sami Mejia MD Main office - [facility] 04/16/2020 10:30:00 AM EDT MED[facility] ([facility]) [place] [address] [facility] [address] 04/07/2020 12:00:00 AM EDT eCW1 ([facility]) [place] [address] [facility] [address] 03/28/2020 12:00:00 AM EDT eCW1 ([facility]) Outpatient Attender: DARLENE NARANJO MD Physical Therapy 10:30:00 AM EDT MED[facility] ([facility]) Office Visit Attender: Sami Mejia MD [facility] office - [facility] 03/03/2020 01:45:00 PM EDT [facility] ([facility]) [place] [address] [facility] [address] 02/29/2020 12:00:00 AM EDT eCW1 ([facility]) Unknown [address] [facility] [address] 02/28/2020 12:00:00 AM EDT eCW1 ([facility]) [place] [address] [facility] [address] 02/28/2020 12:00:00 AM EDT eCW1 ([facility]) [facility] [address] [facility] [address] 02/26/2020 12:00:00 AM EDT eCW1 ([facility]) Unknown [address] [facility] [address] 02/25/2020 12:00:00 AM EDT eCW1 ([facility]) Outpatient Attender: DARLENE NARANJO MD Physical Therapy 10:00:00 AM EDT [facility] ([facility]) [facility] [address] [place] [address] [address] 02/07/2020 12:00:00 AM EDT eCW1 ([facility]) [address] [address] 01/24/2020 12:00:00 AM EDT eCW1 ([facility]) [address] [address] 01/14/2020 12:00:00 AM EDT eCW1 ([facility]) [address] [address] 01/14/2020 12:00:00 AM EDT eCW1 ([facility]) [address] [address] 01/10/2020 12:00:00 AM EDT eCW1 ([facility]) [address] [address] 01/07/2020 12:00:00 AM EDT eCW1 ([facility]) [address] [address] 12/24/2019 12:00:00 AM EDT eCW1 ([facility]) [address] [address] 12/06/2019 12:00:00 AM EDT eCW1 ([facility]) Outpatient Attender: Sami Mejia MD Main office - [facility] 11/30/2019 11:30:00 AM EDT MEDENT ([facility]) [address] [address] 11/28/2019 12:00:00 AM EDT eCW1 ([facility]) [address] [address] 11/23/2019 12:00:00 AM EST eCW1 ([facility]) [address] [address] 11/22/2019 12:00:00 AM EST [facility]CW[facility] [address] [address] 11/22/2019 12:00:00 AM EST eCW1 ([facility]) [address] [address] 11/22/2019 12:00:00 AM EST eCW1 ([facility]) [address] [address] 11/22/2019 12:00:00 AM EST eCW1 ([facility]) Outpatient Referrer: KENJI WILLIAM NP 11/15/2019 06:29:00 PM E [facility] [address] [address] 11/08/2019 12:00:00 AM EST eCW1 ([facility]) Emergency Attender: DARLENE NARANJO MD Physical Therapy 03:26:00 PM EST MED[facility] ([facility]) [address] [address] 11/01/2019 12:00:00 AM EST eCW1 ([facility]) [address] [address] 11/01/2019 12:00:00 AM EST eCW1 ([facility]) [address] [address] 10/25/2019 12:00:00 AM EST eCW1 ([facility]) [address] [address] 10/16/2019 12:00:00 AM EST eCW1 ([facility]) [address] [address] 10/16/2019 12:00:00 AM EST eCW1 ([facility]) [address] [address] 10/15/2019 12:00:00 AM EST eCW1 ([facility]) [address] [address] 10/03/2019 12:00:00 AM EST eCW1 ([facility]) [address] [address] 10/02/2019 12:00:00 AM EST eCW1 ([facility]) [address] [address] 10/01/2019 12:00:00 AM EST eCW1 ([facility]) [address] [address] 09/28/2019 12:00:00 AM EST eCW1 ([facility]) [address] [address] 09/20/2019 12:00:00 AM EST eCW1 ([facility]) [address] [address] 09/11/2019 12:00:00 AM EST eCW1 ([facility]) [address] [address] 09/10/2019 12:00:00 AM EST eCW1 ([facility]) Functional Status Immunizations Vaccine Date Status Description Data Source(s) COVID-19(given elsewhere) Unspecified 10/14/2020 02:53:00 PM EST co mpleted eCW1 ([facility]) COVID-19(given elsewhere) Unspecified 10/14/2020 02:53:00 PM EST co mpleted eCW1 ([facility]) COVID-19(given elsewhere) Unspecified 10/14/2020 02:53:00 PM EST co mpleted eCW1 ([facility]) COVID-19(given elsewhere) Unspecified 10/14/2020 02:53:00 PM EST co mpleted eCW1 ([facility]) COVID-19(given elsewhere) Unspecified 09/19/2020 02:52:00 PM EST co mpleted eCW1 ([facility]) COVID-19(given elsewhere) Unspecified 09/19/2020 02:52:00 PM EST co mpleted eCW1 ([facility]) COVID-19(given elsewhere) Unspecified 09/19/2020 02:52:00 PM EST co mpleted eCW1 ([facility]) COVID-19(given elsewhere) Unspecified 09/19/2020 02:52:00 PM EST co mpleted eCW1 ([facility]) Prolia 60mg/1mL (Denosumab) 01/24/2020 05:16:00 PM EDT completed eCW1 ([facility]) Prolia 60mg/1mL (Denosumab) 01/24/2020 05:16:00 PM EDT completed eCW1 ([facility]) Prolia 60mg/1mL (Denosumab) 01/24/2020 05:16:00 PM EDT completed eCW1 ([facility]) Prolia 60mg/1mL (Denosumab) 01/24/2020 05:16:00 PM EDT completed eCW1 ([facility]) Prolia 60mg/1mL (Denosumab) 01/24/2020 05:16:00 PM EDT completed eCW1 ([facility]) Prolia 60mg/1mL (Denosumab) 01/24/2020 05:16:00 PM EDT completed eCW1 ([facility]) Prolia 60mg/1mL (Denosumab) 01/24/2020 05:16:00 PM EDT completed eCW1 ([facility]) Prolia 60mg/1mL (Denosumab) 01/24/2020 05:16:00 PM EDT completed eCW1 ([facility]) Prolia 60mg/1mL (Denosumab) 01/24/2020 05:16:00 PM EDT completed eCW1 ([facility]) Prolia 60mg/1mL (Denosumab) 01/24/2020 05:16:00 PM EDT completed eCW1 ([facility]) Prolia 60mg/1mL (Denosumab) 01/24/2020 05:16:00 PM EDT completed eCW1 ([facility]) Prolia 60mg/1mL (Denosumab) 01/24/2020 05:16:00 PM EDT completed eCW1 ([facility]) Prolia 60mg/1mL (Denosumab) 01/24/2020 05:16:00 PM EDT completed eCW1 ([facility]) Prolia 60mg/1mL (Denosumab) 01/24/2020 05:16:00 PM EDT completed eCW1 ([facility]) Prolia 60mg/1mL (Denosumab) 01/24/2020 05:16:00 PM EDT completed eCW1 ([facility]) Prolia 60mg/1mL (Denosumab) 01/24/2020 05:16:00 PM EDT completed eCW1 ([facility]) Prolia 60mg/1mL (Denosumab) 01/24/2020 05:16:00 PM EDT completed eCW1 ([facility]) Prolia 60mg/1mL (Denosumab) 01/24/2020 05:16:00 PM EDT completed eCW1 ([facility]) Prolia 60mg/1mL (Denosumab) 01/24/2020 05:16:00 PM EDT completed eCW1 ([facility]) Prolia 60mg/1mL (Denosumab) 01/24/2020 05:16:00 PM EDT completed eCW1 ([facility]) Prolia 60mg/1mL (Denosumab) 01/24/2020 05:16:00 PM EDT completed eCW1 ([facility]) Prolia 60mg/1mL (Denosumab) 01/24/2020 05:16:00 PM EDT completed eCW1 ([facility]) Medications Medication Brand Name Start Date Product Form Dose Route Admi nistrative Instructions Pharmacy Instructions Status Indications Reaction Description Data Source(s) cefpodoxime 200 MG Oral Tablet Cefpodoxime Cefpodoxime 10/06/2020 11:05:51 AM EST 200 MG [facility] Metronidazole 500 MG Oral Tablet Metronidazole 10/06/2020 11:00:36 AM EST 500 MG [facility] L. Acidophilus-L. Rhamnosus (Probiotic) 15 billion cell caps ule 10/06/2020 10:38:24 AM EST 1 CAP [facility] Esomeprazole 40 MG Delayed Release Oral Capsule Esomep razole Magnesium Esomeprazole Magnesium 10/04/2020 03:48:00 PM EST 40 [facility] mycophenolate mofetil 500 MG Oral Tablet Mycophenolate Mofetil Mycophenolate Mofetil 10/04/2020 02:56:16 PM EST 1000 [facility] Ergocalciferol 51058 UNT Oral Capsule Er gocalciferol (Vitamin D2) (Vitamin D2) 1,250 mcg (50,000 unit) Capsule Ergocalciferol (Vitamin D2) (Vitamin D2) 1,250 mcg (50,000 unit) Capsule 10/04/2020 02:56:16 PM EST [facility] Carbon[facility] 500 MG Chewable Tablet Calcium Carbonate (Tums) 200 mg calcium (500 mg) Tablet,Chewable Calcium Carbonate (Tums) 200 mg calcium (500 mg) Tablet,Chewable 10/04/2020 02:56:16 PM EST 400 MG [facility] Aspirin 10/04/2020 02:56:16 PM EST 81 MG [facility] rivaroxaban 20 MG Oral Tablet Rivaroxaban (Xarelto) 20 mg tablet Rivaroxaban (Xarelto) 20 mg tablet 10/04/2020 02:56:16 PM EST 20 MG [facility] quetiapine 25 MG Oral Tablet Quetiapine Quetiapine 10/04/2020 02: 56:16 PM EST 12.5 MG [facility] Pyridostigmine Stokes 60 MG Oral Tablet Pyridostigmine Brom kelvin 10/04/2020 02:56:16 PM EST 60 MG [facility] Furosemide 40 MG Oral Tablet Furosemide 10/04/2020 02:56:16 PM EST 40 MG active Health system Metoprolol Tartrate 25 MG Oral Tablet Metoprolol Tartrate 02:56:16 PM EST [address] [facility] Prednisone 20 MG Oral Tablet Prednisone 10/04/2020 02:53:54 PM EST 20 MG active Health system valganciclovir 450 MG Oral Tablet Valganciclovir HCl 4 50 MG Valganciclovir HCl 450 MG 07/10/2020 12:00:00 AM EDT 2.0 {tablets_with_a_meal} active Valganciclovir HCl 450 MG eCW1 ([facility]) valganciclovir 450 MG Oral Tablet Valganciclovir HCl 4 50 MG Valganciclovir HCl 450 MG 07/10/2020 12:00:00 AM EDT 2.0 {tablets_with_a_meal} active Valganciclovir HCl 450 MG eCW1 ([facility]) valganciclovir 450 MG Oral Tablet Valganciclovir HCl 4 50 MG Valganciclovir HCl 450 MG 07/10/2020 12:00:00 AM EDT 2.0 {tablets_with_a_meal} active Valganciclovir HCl 450 MG eCW1 ([facility]) Nystatin 133285 UNT/ML Topical Cream Nystatin 293583 U NIT/GM Nystatin 830578 UNIT/GM 07/10/2020 12:00:00 AM EDT 1.0 {application} active Nystatin 927675 UNIT/GM eCW1 ([facility]) valganciclovir 450 MG Oral Tablet Valganciclovir HCl 4 50 MG Valganciclovir HCl 450 MG 07/10/2020 12:00:00 AM EDT 2.0 {tablets_with_a_meal} active Valganciclovir HCl 450 MG eCW1 ([facility]) Nystatin 730296 UNT/ML Topical Cream Nystatin 301117 U NIT/GM Nystatin 998565 UNIT/GM 07/10/2020 12:00:00 AM EDT 1.0 {application} active Nystatin 741571 UNIT/GM eCW1 ([facility]) Nystatin 791045 UNT/ML Topical Cream Nystatin 309596 U NIT/GM Nystatin 887981 UNIT/GM 07/10/2020 12:00:00 AM EDT 1.0 {application} active Nystatin 796923 UNIT/GM eCW1 ([facility]) Nystatin 893739 UNT/ML Topical Cream Nystatin 238786 U NIT/GM Nystatin 400354 UNIT/GM 07/10/2020 12:00:00 AM EDT 1.0 {application} active Nystatin 401967 UNIT/GM eCW1 ([facility]) Nystatin 263601 UNT/ML Topical Cream Nystatin 058720 U NIT/GM Nystatin 840951 UNIT/GM 07/10/2020 12:00:00 AM EDT 1.0 {application} active Nystatin 804085 UNIT/GM eCW1 ([facility]) valganciclovir 450 MG Oral Tablet Valganciclovir HCl 4 50 MG Valganciclovir HCl 450 MG 07/10/2020 12:00:00 AM EDT 2.0 {tablets_with_a_meal} active Valganciclovir HCl 450 MG eCW1 ([facility]) Rivaroxaban 20 MG UNK 07/01/2020 12:00:00 AM EDT 1.0 {tablet _with_food} active Rivaroxaban 20 MG eCW1 ([facility]) Rivaroxaban 20 MG UNK 07/01/2020 12:00:00 AM EDT 1.0 {tablet _with_food} active Rivaroxaban 20 MG eCW1 ([facility]) mesalamine 1200 MG Delayed Release Oral Tablet Mesalam ine 1.2 GM Mesalamine 1.2 GM 06/24/2020 12:00:00 AM EDT 2.0 {tablets} acti ve Mesalamine 1.2 GM eCW1 ([facility]) Diazepam 5 MG Oral Tablet Diazepam 04/17/2020 12:00:00 AM EDT active [facility] ([facility], ) Prednisone 20 MG Oral Tablet Prednisone 04/16/2020 12:00:00 AM EDT active [facility] ([facility], ) pregabalin 50 MG Oral Capsule [Lyrica] Lyrica 50 MG Lyrica 5 0 MG 04/01/2020 12:00:00 AM EDT 1.0 {capsule} active L yrica 50 MG eCW1 ([facility]) pregabalin 50 MG Oral Capsule [Lyrica] Lyrica 50 MG Lyrica 5 0 MG 04/01/2020 12:00:00 AM EDT 1.0 {capsule} active L yrica 50 MG eCW1 ([facility]) pregabalin 50 MG Oral Capsule [Lyrica] Lyrica 50 MG Lyrica 5 0 MG 04/01/2020 12:00:00 AM EDT 1.0 {capsule} active L yrica 50 MG eCW1 ([facility]) Diclofenac Sodium 0.01 MG/MG Topical Gel Voltaren 02/18/2020 12 :00:00 AM EDT active [facility] ([facility]) Docusate Sodium 100 MG Oral Capsule [Colace] Colace 100 MG C olace 100 MG 01/14/2020 12:00:00 AM EDT 1.0 {capsule_as_needed} active Colace 100 MG eCW1 ([facility]) Docusate Sodium 100 MG Oral Capsule [Colace] Colace 100 MG C olace 100 MG 01/14/2020 12:00:00 AM EDT active 1 capsule as needed eCW1 ([facility]) Hydrocortisone 25 MG/ML Topical Cream [Anusol HC] Anus ol-HC 2.5 % Anusol-HC 2.5 % 01/07/2020 12:00:00 AM EDT 1.0 {application} active Anusol-HC 2.5 % eCW1 ([facility]) Hydrocortisone 25 MG/ML Topical Cream [Anusol HC] Anus ol-HC 2.5 % Anusol-HC 2.5 % 01/07/2020 12:00:00 AM EDT 1.0 {application} active Anusol-HC 2.5 % eCW1 ([facility]) Hydrocortisone 25 MG/ML Topical Cream [Anusol HC] Anus ol-HC 2.5 % Anusol-HC 2.5 % 01/07/2020 12:00:00 AM EDT 1.0 {application} active Anusol-HC 2.5 % eCW1 ([facility]) Hydrocortisone 25 MG/ML Topical Cream [Anusol HC] Anus ol-HC 2.5 % Anusol-HC 2.5 % 01/07/2020 12:00:00 AM EDT 1.0 {application} active Anusol-HC 2.5 % eCW1 ([facility]) Hydrocortisone 25 MG/ML Topical Cream [Anusol HC] Anus ol-HC 2.5 % Anusol-HC 2.5 % 01/07/2020 12:00:00 AM EDT 1.0 {application} active Anusol-HC 2.5 % eCW1 ([facility]) Hydrocortisone 25 MG/ML Topical Cream [Anusol HC] Anus ol-HC 2.5 % Anusol-HC 2.5 % 01/07/2020 12:00:00 AM EDT active 1 application eCW1 ([facility]) Hydrocortisone 25 MG/ML Topical Cream [Anusol HC] Anus ol-HC 2.5 % Anusol-HC 2.5 % 01/07/2020 12:00:00 AM EDT 1.0 {application} active Anusol-HC 2.5 % eCW1 ([facility]) Hydrocortisone 25 MG/ML Topical Cream [Anusol HC] Anus ol-HC 2.5 % Anusol-HC 2.5 % 01/07/2020 12:00:00 AM EDT 1.0 {application} active Anusol-HC 2.5 % eCW1 ([facility]) Hydrocortisone 25 MG/ML Topical Cream [Anusol HC] Anus ol-HC 2.5 % Anusol-HC 2.5 % 01/07/2020 12:00:00 AM EDT 1.0 {application} active Anusol-HC 2.5 % eCW1 ([facility]) Hydrocortisone 25 MG/ML Topical Cream [Anusol HC] Anus ol-HC 2.5 % Anusol-HC 2.5 % 01/07/2020 12:00:00 AM EDT 1.0 {application} active Anusol-HC 2.5 % eCW1 ([facility]) Hydrocortisone 25 MG/ML Topical Cream [Anusol HC] Anus ol-HC 2.5 % Anusol-HC 2.5 % 01/07/2020 12:00:00 AM EDT 1.0 {application} active Anusol-HC 2.5 % eCW1 ([facility]) Hydrocortisone 25 MG/ML Topical Cream [Anusol HC] Anus ol-HC 2.5 % Anusol-HC 2.5 % 01/07/2020 12:00:00 AM EDT 1.0 {application} active Anusol-HC 2.5 % eCW1 ([facility]) Hydrocortisone 25 MG/ML Topical Cream [Anusol HC] Anus ol-HC 2.5 % Anusol-HC 2.5 % 01/07/2020 12:00:00 AM EDT 1.0 {application} active Anusol-HC 2.5 % eCW1 ([facility]) Hydrocortisone 25 MG/ML Topical Cream [Anusol HC] Anus ol-HC 2.5 % Anusol-HC 2.5 % 01/07/2020 12:00:00 AM EDT 1.0 {application} active Anusol-HC 2.5 % eCW1 ([facility]) Hydrocortisone 25 MG/ML Topical Cream [Anusol HC] Anus ol-HC 2.5 % Anusol-HC 2.5 % 01/07/2020 12:00:00 AM EDT 1.0 {application} active Anusol-HC 2.5 % eCW1 ([facility]) Hydrocortisone 25 MG/ML Topical Cream [Anusol HC] Anus ol-HC 2.5 % Anusol-HC 2.5 % 01/07/2020 12:00:00 AM EDT 1.0 {application} active Anusol-HC 2.5 % eCW1 ([facility]) Hydrocortisone 25 MG/ML Topical Cream [Anusol HC] Anus ol-HC 2.5 % Anusol-HC 2.5 % 01/07/2020 12:00:00 AM EDT 1.0 {application} active Anusol-HC 2.5 % eCW1 ([facility]) Hydrocortisone 25 MG/ML Topical Cream [Anusol HC] Anus ol-HC 2.5 % Anusol-HC 2.5 % 01/07/2020 12:00:00 AM EDT 1.0 {application} active Anusol-HC 2.5 % eCW1 ([facility]) Hydrocortisone 25 MG/ML Topical Cream [Anusol HC] Anus ol-HC 2.5 % Anusol-HC 2.5 % 01/07/2020 12:00:00 AM EDT 1.0 {application} active Anusol-HC 2.5 % eCW1 ([facility]) Hydrocortisone 25 MG/ML Topical Cream [Anusol HC] Anus ol-HC 2.5 % Anusol-HC 2.5 % 01/07/2020 12:00:00 AM EDT 1.0 {application} active Anusol-HC 2.5 % eCW1 ([facility]) Hydrocortisone 25 MG/ML Topical Cream [Anusol HC] Anus ol-HC 2.5 % Anusol-HC 2.5 % 01/07/2020 12:00:00 AM EDT 1.0 {application} active Anusol-HC 2.5 % eCW1 ([facility]) Hydrocortisone 25 MG/ML Topical Cream [Anusol HC] Anus ol-HC 2.5 % Anusol-HC 2.5 % 01/07/2020 12:00:00 AM EDT 1.0 {application} active Anusol-HC 2.5 % eCW1 ([facility]) Hydrocortisone 25 MG/ML Topical Cream [Anusol HC] Anus ol-HC 2.5 % Anusol-HC 2.5 % 01/07/2020 12:00:00 AM EDT 1.0 {application} active Anusol-HC 2.5 % eCW1 ([facility]) Hydrocortisone 25 MG/ML Topical Cream [Anusol HC] Anus ol-HC 2.5 % Anusol-HC 2.5 % 01/07/2020 12:00:00 AM EDT 1.0 {application} active Anusol-HC 2.5 % eCW1 ([facility]) Hydrocortisone 25 MG/ML Topical Cream [Anusol HC] Anus ol-HC 2.5 % Anusol-HC 2.5 % 01/07/2020 12:00:00 AM EDT 1.0 {application} active Anusol-HC 2.5 % eCW1 ([facility]) Hydrocortisone 25 MG/ML Topical Cream [Anusol HC] Anus ol-HC 2.5 % Anusol-HC 2.5 % 01/07/2020 12:00:00 AM EDT 1.0 {application} active Anusol-HC 2.5 % eCW1 ([facility]) doxycycline hyclate 100 MG Oral Capsule Doxycycline Hy clate 100 MG Doxycycline Hyclate 100 MG 12/24/2019 12:00:00 AM EDT 1.0 {capsule} active Doxycycline Hyclate 100 MG eCW1 ([facility]) doxycycline hyclate 100 MG Oral Capsule Doxycycline Hy clate 100 MG Doxycycline Hyclate 100 MG 12/24/2019 12:00:00 AM EDT 1.0 {capsule} active Doxycycline Hyclate 100 MG eCW1 ([facility]) Depend Pant Medium 1 ea [facility] 11/22/2019 12:00:00 AM EST active Depend Pant Medium 1 ea eCW1 ([facility]) Depend Pant Medium 1 ea [facility] 11/22/2019 12:00:00 AM EST active Depend Pant Medium 1 ea eC1 ([facility]) Depend Pant Medium 1 ea [facility] 11/22/2019 12:00:00 AM EST active Depend Pant Medium 1 ea eCW1 ([facility]) Depend Pant Medium 1 ea [facility] 11/22/2019 12:00:00 AM EST active Depend Pant Medium 1 ea eCW1 ([facility]) Depend Pant Medium 1 ea [facility] 11/22/2019 12:00:00 AM EST active Depend Pant Medium 1 ea eCW1 ([facility]) Depend Pant Medium 1 ea [facility] 11/22/2019 12:00:00 AM EST active Depend Pant Medium 1 ea eC1 ([facility]) Depend Pant Medium 1 ea [facility] 11/22/2019 12:00:00 AM EST active Depend Pant Medium 1 ea eCW1 ([facility]) Depend Pant Medium 1 ea [facility] 11/22/2019 12:00:00 AM EST active Depend Pant Medium 1 ea eCW1 ([facility]) Depend Pant Medium 1 ea UNK 11/22/2019 12:00:00 AM EST active Depend Pant Medium 1 ea eCW1 ([facility]) Depend Pant Medium 1 ea UNK 11/22/2019 12:00:00 AM EST active Depend Pant Medium 1 ea eCW1 ([facility]) Depend Pant Medium 1 ea UNK 11/22/2019 12:00:00 AM EST active Depend Pant Medium 1 ea eCW1 ([facility]) Depend Pant Medium 1 ea UNK 11/22/2019 12:00:00 AM EST active Depend Pant Medium 1 ea eCW1 ([facility]) Depend Pant Medium 1 ea UNK 11/22/2019 12:00:00 AM EST active Depend Pant Medium 1 ea eCW1 ([facility]) Depend Pant Medium 1 ea UNK 11/22/2019 12:00:00 AM EST active Depend Pant Medium 1 ea eCW1 ([facility]) Depend Pant Medium 1 ea UNK 11/22/2019 12:00:00 AM EST active Depend Pant Medium 1 ea eCW1 ([facility]) Depend Pant Medium 1 ea UNK 11/22/2019 12:00:00 AM EST active Dx Code eCW1 ([facility]) Depend Pant Medium 1 ea UNK 11/22/2019 12:00:00 AM EST active Depend Pant Medium 1 ea eCW1 ([facility]) Calcium Carbonate 1000 MG Chewable Tablet [Tums] Tums Ultra 1000 1000 MG Tums Ultra 1000 1000 MG 11/22/2019 12:00:00 AM EST 1.0 {tablet} active Tums Ultra 1000 1000 MG eCW1 ([facility]) Depend Pant Medium 1 ea UNK 11/22/2019 12:00:00 AM EST active Depend Pant Medium 1 ea eCW1 ([facility]) Depend Pant Medium 1 ea UNK 11/22/2019 12:00:00 AM EST active Depend Pant Medium 1 ea eCW1 ([facility]) Depend Pant Medium 1 ea UNK 11/22/2019 12:00:00 AM EST active Depend Pant Medium 1 ea eCW1 ([facility]) Depend Pant Medium 1 ea UNK 11/22/2019 12:00:00 AM EST active Depend Pant Medium 1 ea eCW1 ([facility]) Depend Pant Medium 1 ea UNK 11/22/2019 12:00:00 AM EST active Depend Pant Medium 1 ea eCW1 ([facility]) Depend Pant Medium 1 ea UNK 11/22/2019 12:00:00 AM EST active Depend Pant Medium 1 ea eCW1 ([facility]) Calcium Carbonate 1000 MG Chewable Tablet [Tums] Tums Ultra 1000 1000 MG Tums Ultra 1000 1000 MG 11/22/2019 12:00:00 AM EST acti ve 1 tablet eCW1 ([facility]) Depend Pant Medium 1 ea UNK 11/22/2019 12:00:00 AM EST active Depend Pant Medium 1 ea eCW1 ([facility]) Depend Pant Medium 1 ea UNK 11/22/2019 12:00:00 AM EST active Depend Pant Medium 1 ea eCW1 ([facility]) Depend Pant Medium 1 ea UNK 11/22/2019 12:00:00 AM EST active Depend Pant Medium 1 ea eCW1 ([facility]) Hydrocortisone 25 MG/ML Topical Cream [Anusol HC] Anus ol-HC 2.5 % Anusol-HC 2.5 % 10/16/2019 12:00:00 AM EST active 1 application eCW1 ([facility]) calcium polycarbophil 625 MG Oral Tablet [FiberCon] Fi berCon 625 MG FiberCon 625 MG 10/16/2019 12:00:00 AM EST active 2 tablets as needed eCW1 ([facility]) Calamine 80 MG/ML / Pramoxine hydrochlor kelvin 10 MG/ML Topical Lotion [Caladryl] Caladryl 1-8 % Caladryl 1-8 % 09/11/2019 12:00:00 AM EST active 1 application to left lower back as needed eCW1 ([facility]) Valcyclovir-1000 mg TID 500 mg UNK 09/11/2019 12:00:00 AM EST active 2 tabs eCW1 ([facility]) Insurance Providers Payer name Policy type / Coverage type Policy ID Covered democrat ID Covered democrat's relationship to benitez Policy Benitez Plan Information JAMEYEDCORRIE [id number] SP [id number] MEDICARE [id number] SP [id number] [id number] MEDICARE [id number] SP [id number] SELF PAY MEDICARE C [id number] S [id number] U94 MEDICAID M [id number] S [id number] MEDICARE -RECURRING [id number] MEDICAID -RECURRING [id number] MEDICAID [id number] SP [id number] ANSI-Medicaid [id number] ANSI-Medicare Part B [id number] ANSI-Medicare Part B [id number] ANSI-Medicaid [id number] ANSI-Medicaid [id number] ANSI-Medicare Part B [id number] ANSI-Medicare Part B [id number] ANSI-Medicaid [id number] ANSI-Medicaid [id number] ANSI-Medicare Part B [id number] ANSI-Medicare Part B [id number] ANSI-Medicaid [id number] ANSI-Medicaid [id number] ANSI-Medicare Part B [id number] ANSI-Medicaid [id number] ANSI-Medicare Part B [id number] ANSI-Medicaid [id number] ANSI-Medicare Part B [id number] ANSI-Medicare Part B [id number] ANSI-Medicaid [id number] ANSI-Medicare Part B [id number] ANSI-Medicaid [id number] ANSI-Medicaid [id number] ANSI-Medicare Part B [id number] ANSI-Medicare Part B [id number] ANSI-Medicaid [id number] ANSI-Medicaid [id number] ANSI-Medicare Part B [id number] ANSI-Medicare Part B [id number] ANSI-Medicaid [id number] ANSI-Medicaid [id number] ANSI-Medicare Part B [id number] ANSI-Medicaid [id number] ANSI-Medicare Part B [id number] ANSI-Medicare Part B [id number] ANSI-Medicaid [id number] ANSI-Medicare Part B [id number] ANSI-Medicaid [id number] ANSI-Medicare Part B [id number] ANSI-Medicaid [id number] ANSI-Medicaid [id number] ANSI-Medicare Part B [id number] ANSI-Medicaid [id number] ANSI-Medicare Part B [id number] ANSI-Medicaid [id number] ANSI-Medicare Part B [id number] Medicaid [place] Medigap Part B [id number] Self [id number] [place] Primary [id number] Self [id number] ANSI-Medicare Part B [id number] ANSI-Medicaid [id number] ANSI-Medicaid [id number] ANSI-Medicare Part B [id number] ANSI-Medicare Part B [id number] ANSI-Medicaid [id number] ANSI-Medicare Part B [id number] ANSI-Medicaid [id number] ANSI-Medicare Part B [id number] ANSI-Medicaid [id number] ANSI-Medicaid [id number] ANSI-Medicare Part B [id number] ANSI-Medicaid [id number] ANSI-Medicare Part B [id number] ANSI-Medicaid [id number] ANSI-Medicare Part B [id number] Medicaid [facility] Healthcare S D [id number] SELF [id number] Medicare C [id number] SELF [id number] DME Jurisdiction A NHIC C [id number] SELF [id number] ANSI-Medicare Part B [id number] ANSI-Medicaid [id number] MEDICARE PART A-O/P [id number] MEDICARE [id number] Diana [id number] U94 MEDICAID [id number] Diana [id number] MEDICARE [id number] Diana [id number] ANSI-Medicaid [id number] ANSI-Medicare Part B [id number] ANSI-Medicare Part B [id number] ANSI-Medicaid [id number] ANSI-Medicare Part B [id number] ANSI-Medicaid [id number] ANSI-Medicare Part B [id number] ANSI-Medicaid [id number] ANSI-Medicaid [id number] ANSI-Medicare Part B [id number] ANSI-Medicaid [id number] ANSI-Medicare Part B [id number] MEDICAID PI PI MEDICARE PI PI Medicaid [facility] Healthcare S D [id number] SELF [id number] ANSI-Medicare Part B [id number] ANSI-Medicaid [id number] ANSI-Medicare Part B [id number] ANSI-Medicaid [id number] ANSI-Medicaid [id number] ANSI-Medicare Part B [id number] ANSI-Medicare Part B [id number] ANSI-Medicaid [id number] Medicaid [place] Medigap Part B [id number] Medicare [place] Medicare Primary [id number] Self [id number] ANSI-Medicaid [id number] ANSI-Medicare Part B [id number] ANSI-Medicare Part B [id number] ANSI-Medicaid [id number] ANSI-Medicare Part B [id number] ANSI-Medicaid [id number] ANSI-Medicaid [id number] ANSI-Medicare Part B [id number] Medicare C [id number] SELF [id number] ANSI-Medicaid [id number] ANSI-Medicare Part B [id number] ANSI-Medicare Part B [id number] ANSI-Medicaid [id number] MEDICAID -RECURRING [id number] MEDICARE -RECURRING [id number] ANSI-Medicare Part B [id number] ANSI-Medicaid [id number] ANSI-Medicare Part B [id number] ANSI-Medicaid [id number] ANSI-Medicare Part B [id number] ANSI-Medicaid [id number] ANSI-Medicaid [id number] ANSI-Medicare Part B [id number] Ghi FHP-(DO Not Use) Medigap Part B [id number] Self [id number] [place] [id number] Self [id number] Medicaid [place] Medig[place] Part [place] [id number] Self [id number] ANSI-Medicare Part B [id number] ANSI-Medicaid [id number] ANSI-Medicare Part B [id number] ANSI-Medicaid [id number] ANSI-Medicaid [id number] ANSI-Medicare Part B [id number] ANSI-Medicaid [id number] ANSI-Medicare Part B [id number] MEDICARE [id number] SP [id number] DME Jurisdiction A [facility] C [id number] SELF [id number] Medicare C [id number] SELF [id number] MEDICARE C [id number] S [id number] Ghi FHP-(DO Not Use) Medigap Part B [id number] Self [id number] Medicare [facility] Medicare Primary [id number] Self [id number] MEDICAID-O/P [id number] 18 [id number] Ghi FHP-(DO Not Use) Medigap Part B [id number] Self [id number] Medicare [facility] Medicare Primary [id number] Self [id number] MEDICAID M [id number] MEDICAID [id number] SP [id number] Medicaid [place]ig[place] Part B [id number] Self [id number] Medicare [facility] Medicare Primary [id number] Self [id number] [place] Part B [id number] Self [id number] Medicare [facility] Medicare Primary [id number] Self [id number] [place] NO FAULT O [id number] S [id number] [place] [id number] Self [id number] [place] Medicare Primary [id number] Self [id number] [place] [id number] Self [id number] [place] Medicare Primary [id number] Self [id number] [place] Part B Self Medicare [facility] Medicare Primary Self Ghi FHP-(DO Not Use) Medig[place] Part B Self [place] Part B Self Medicare [facility] Medicare Primary Self [employer] PPO [id number] SP [id number] MEDICAID-PHYSICIAN [id number] A [id number] MEDICARE PART B-PHYSICIAN [id number] 18 [id number] MEDICAID - CLINIC [id number] MEDICARE PART A-CLINIC [id number] 18 [id number] [employer] GOLD P [id number] S [id number] [employer] PPO [id number] SP [id number] [employer] GOLD [id number] SP [id number] MEDICAID - O/P EMERGENCY ROOM [id number] 18 [id number] Problems, Conditions, and Diagnoses Code Display Name Description Problem Type Effective Dates Data Source(s) B37.2 03171107 Candidiasis of skin Problem 07/10/2020 12:00 :00 AM EDT eCW1 ([facility]) K13.0 656160303 Perleche Problem 07/10/2020 12:00:00 AM ED T eCW1 ([facility]) B25.8 Cytomegalovirus infection Other cytomegaloviral diseas es Problem 07/10/2020 12:00:00 AM EDT eCW1 ([facility]) M77.41 [id number] Metatarsalgia, right foot Problem 07/10/2020 12:00:00 AM EDT eCW1 ([facility]) 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 Sensory peripheral n europathy Problem 07/01/2020 12:00:00 AM EDT eCW1 ([facility]) K50.10 Crohn's disease of colon Crohn's disease of colon Prob gerri 07/01/2020 12:00:00 AM EDT eCW1 ([facility]) K64.9 28176808 Bleeding hemorrhoids Problem 11/22/2019 12:0 0:00 AM EST eCW1 ([facility]) K64.9 [id number] Bleeding hemorrhoids Problem 11/22/2019 12:0 0:00 AM EST eCW1 ([facility]) J30.9 Allergic rhinitis Allergic rhinitis Problem 10/03/2019 12:00:00 AM EST eCW1 ([facility]) J30.9 Allergic rhinitis Allergic rhinitis Problem 10/03/2019 12:00:00 AM EST eCW1 ([facility]) G7001 Myasthenia gravis with (acute) exacerbat ion Myasthenia gravis with (acute) exacerbation Diagnosis 04/30/2020 10:28:00 AM EDT [facility] Surgeries/Procedures Procedure Description Date Indications Data Source(s) X-Ray Femur Minimum 2 Views 10/27/2020 12:00:00 AM EST [facility] ([facility] ) CT Thorax without contrast 10/04/2020 05:43:00 PM [facility] CT Abd/pel w/o contrast 10/04/2020 05:41:00 PM [facility] Plain chest X-ray (procedure) 10/04/2020 10:09:00 AM E [facility] Plain chest X-ray (procedure) 10/04/2020 10:09:00 AM E [facility] 10/04/2020 12:00:00 AM [facility] Influenza-Like Illness (PCR) 10/04/2020 12:00:00 AM [facility] Blood culture for bacteria, including anaerobic screen (proc edure) 10/04/2020 [facility]:00:00 AM [facility] Influenza-Like Illness (PCR) 10/04/2020 12:00:00 AM [facility] Blood Culture 10/04/2020 12:00:00 AM [facility] X-Ray Femur Minimum 2 Views 09/15/2020 12:00:00 AM EST [facility] ([facility]) X-Ray Femur Minimum 2 Views 08/21/2020 12:00:00 AM EST [facility] ([facility]) FX Femur Shaft W/Plate/Screws 07/23/2020 12:00:[address] [facility] ([facility]) FX Femur Shaft W/Plate/Screws 07/23/2020 12:00:[address] [facility] ([facility]) Magnetic Resonance Angiogtaphy Head W/O Contrast Material(S) 04/25/2020 12:00:00 AM EDT [facility] ([facility]) Magnetic Resonance Angiogtaphy Head W/O Contrast Material(S) 04/25/2020 12:00:00 AM EDT [facility] ([facility]) Magnetic Resonance Angiography Neck W/O Contrast Materials 04/25/2020 12:00:00 AM EDT [facility] ([facility]) Magnetic Resonance Angiography Neck W/O Contrast Materials 04/25/2020 12:00:00 AM EDT [facility] ([facility]) MRI BRAIN BRAIN STEM W/O CONTRAST MATERIAL 04/25/2020 12:00:00 AM EDT [facility] ([facility] ) MRI BRAIN BRAIN STEM W/O CONTRAST MATERIAL 04/25/2020 12:00:00 AM EDT [facility] ([facility] ) RADEX WRIST 2 VIEWS 03/25/2020 12:00:00 AM EDT [facility] ([facility] ) RADEX WRIST COMPLETE MINIMUM 3 VIEWS 02/18/2020 12:00: 00 AM EDT [facility] ([facility] ) THER/PROPH/DIAG INJ, SC/IM 01/24/2020 12:00:00 AM EDT eCW1 ([facility]) Injection, denosumab, 1 mg 01/24/2020 12:00:00 AM EDT eCW1 ([facility]) RADEX WRIST COMPLETE MINIMUM 3 VIEWS 12/17/2019 12:00: 00 AM EDT [facility] ([facility] ) RADEX WRIST COMPLETE MINIMUM 3 VIEWS 12/12/2019 12:00: 00 AM EDT [facility] ([facility] ) APPLICATION CAST ELBOW FINGER SHORT ARM 11/27/2019 12: 00:00 AM EDT [facility] ([facility] ) RADEX WRIST COMPLETE MINIMUM 3 VIEWS 11/27/2019 12:00: 00 AM EDT [facility] ([facility] ) Office Visit, Est Pt., Level 4 PC 11/22/2019 12:00:00 AM EST eCW1 ([facility]) Office Visit, Est Pt., Level 2 FC 11/22/2019 12:00:00 AM EST eCW1 ([facility]) RADEX WRIST COMPLETE MINIMUM 3 VIEWS 11/21/2019 12:00: 00 AM EST [facility] ([facility] ) CLTX DSTL RDL FX/EPIPHYSL SEP W/MANJ WHEN PERF 020 12:00:00 AM EST [facility] ([facility] ) Office Visit, Est Pt., Level 3 PC 10/16/2019 12:00:00 AM EST eCW1 ([facility]) Results ID Date Data Source [id number] 10/06/2020 11:15:00 AM EST [facility] Therapy Department COLBY MULLER: 1940 Date: 10/06/20 [id number] Attending: Jerrell Spangler MD Physical Therapy Inpatient [...] fx ORIF (recently d/c'd on 10-01-20 from [facility]), Afib, Dementia, Myasthenia gravis Prior Level of Function:: Pt is a poor historian. Based on pt report: lives with son/sons who assistwith meals and IADL's. Using 2WW for mobility. Type of Dwelling: unclear Does the patient have pain?: No - Objective Heari ng Ability: Use of Hearing Aid - Pt remains [place] with B hearing aids. Visual Assistive Devices: [...] this Eval. 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 #2: - alf goal #3: - - End Date Ended:: [...] rce(s) Supporting Document(s) ID Date Data Source [id number] 10/06/2020 11:08:00 AM [facility] Name: COLBY MULLER : 1940 Age: 80 MR#: [id number] Admit Date: 10/04/20 Provider: Jerrell Spangler MD [...] % (Auto) 71.2, Lymph % (Auto) 18.7, Jenkins % (Auto) 8.5, Eos % (Auto) 0.5, [...] MD SIGNATURE DA Report Cosigners: D: MARIETTA 10/06/208 T: MARIETTA 10/06/201107 CC: Name Value Range Interpretation Code Description Data Poonam rce(s) Supporting Document(s) ID Date Data Source [id number] 10/06/2020 06:14:00 AM EST [facility] Name Value Range Interpretation Code Description Data Poonam rce(s) Supporting Document(s) Leukocytes [#/volume] in Blood by Automated count 7.9 10*3/uL 4.45-10 .71 N [facility] Erythrocytes [#/volume] in Blood by Automated count 3.17 10*6/uL 4.20-5.40 Below low normal [facility] Hemoglobin [Moles/volume] in Blood 9.1 g/dL 10.7-15.4 Below low no rmal [facility] Hematocrit [Volume Fraction] of Blood by Automated count 30.0 % 37-47 Below low normal [facility] Erythrocyte mean corpuscular volume [Ent itic volume] in Cord blood by Automated count 94.6 fL 80-96 N [facility] Erythrocyte mean corpuscular hemoglobin [Entitic mass] by Automated count 28.7 pg 27-31 N [facility] Erythrocyte mean corpuscular hemoglobin concentration [Mass/volume] in Cord blood 30.3 g/dL 33-37 Below low normal [facility] Erythrocyte distribution width [Entitic volume] by Automated count 15 % 11-15 N [facility] Platelets [#/volume] in Blood by Automated count 454 10*3/uL 130-472 N [facility] Platelet mean volume [Entitic volume] in Blood 9.5 fL 9.1-13.1 N [facility] Neutrophils/100 leukocytes in Blood by Automated count 71.2 % 41- 77 N [facility] Neutrophils [#/volume] in Blood by Automated count 5.6 U 1.7-7.6 N [facility] Lymphocytes/100 leukocytes in Blood by Automated count 18.7 % 14- 46 N [facility] Lymphocytes [#/volume] in Blood by Automated count 1.5 U 0.6-4.6 N [facility] Monocytes/100 leukocytes in Blood by Automated count 8.5 % 4-12 N [facility] Monocytes [#/volume] in Blood by Automated count 0.7 U 0.2-1.2 N [facility] Eosinophils/100 leukocytes in Blood by Automated count 0.5 % 0-7 N [facility] Eosinophils [#/volume] in Blood by Automated count 0.0 U 0.0-0.5 N [facility] Basophils/100 leukocytes in Blood by Automated count 0.1 % 0.4-1.3 Below low normal [facility] Basophils [#/volume] in Blood by Automated count 0.0 U 0.0-0.2 N [facility] NUCLEATED RED BLOOD CELL 0 % [facility] NUCLEATED RED BLOOD CELL# 0 U [facility] Immature granulocytes [Presence] in Blood by Automated count 0-2 N [facility] Immature granulocytes [#/volume] in Blood by Automated count 0.1 U 0-0.1 N [facility] Manual Differential panel - Blood NO [facility] ID Date Data Source [id number] 10/06/2020 07:00:00 AM EST [facility] Name Value Range Interpretation Code Description Data Poonam rce(s) Supporting Document(s) Urea nitrogen [Mass/volume] in Serum or Plasma 9 mg/dL 9-23 N [facility] Sodium [Moles/volume] in Serum or Plasma 142 mmol/L 132-146 N [facility] Potassium [Moles/volume] in Serum or Plasma 3.2 mmol/L 3.5-5.5 Below low normal [facility] Chloride [Moles/volume] in Serum or Plasma 108 mmol/L 99-109 N [facility] Carbon dioxide, total [Moles/volume] in Serum or Plasma 28 mmol/L 20 -31 N [facility] Anion gap in Serum or Plasma 9 mmol/L 8-16 N L [facility] Glucose [Mass/volume] in Serum or Plasma 80 mg/dL 74-106 N [facility] Creatinine 0.6 mg/dL 0.5-1.1 N [facility] Glomerular filtration rate/1.73 sq M.pre dicted [Volume Rate/Area] in Serum or Plasma Greater Than 60 ABOVE 60 [facility] Alanine aminotransferase [Enzymatic acti vity/volume] in Serum or Plasma by With P-5'-P 13 U/L 10-49 N [facility] ital Aspartate aminotransferase [Enzymatic ac tivity/volume] in Serum or Plasma by With P-5'-P 11 U/L 0-33 N [facility] pital Alkaline phosphatase [Enzymatic activity/volume] in Serum or Plasma 49 U/L 45-129 N [facility] Calcium [Mass/volume] in Serum or Plasma 7.9 mg/dL 8.5-10.1 Below low normal [facility] Bilirubin.total [Mass/volume] in Serum or Plasma 0.2 mg/dL 0.3-1.2 Below low normal [facility] Albumin [Mass/volume] in Serum or Plasma by Bromocresol purple (BCP) dye binding method 2.4 g/dL 3.2-4.8 Below low normal [facility] Protein [Mass/volume] in Serum or Plasma 5.0 g/dL 5.7-8.2 Below low normal [facility] ID Date Data Source [id number] 10/09/2020 09:31:00 AM [facility] Name Value Range Interpretation Code Description Data Poonam rce(s) Supporting Document(s) Clostridium difficile glutamate dehydrogenase [Presence] in Stool [facility] CLOSTRIDIUM DIFFICILE TOXIN/GDH W/REFL TO PCR Micro Number: [id number] Test Status: Final Specimen Source: STOOL Specimen Quality: Adequate GDH Antigen: Not Detected Toxin A and B: Not Detected COMMENT: No toxigenic C. difficile detected For additional information, please refer to [email or web address] (This link is being provided for informational/educational purposes only.)THIS TEST WAS PERFORMED AT:[address] [id number] MERATI,MD ID Date Data Source [id number] 10/05/2020 03:23:00 PM [facility] Name: COLBY MULLER : 1940 Age: 80 MR#: [id number] Admit Date: 10/04/20 Provider: Jerrell Spangler MD Room #: 291 Consulting Provider: Dictation Date: 10/05/20 Progress Note Subjective-ROS Date of service Date of service:: 10/05/20 Review of Systems Attestation/Length Of Stay: 10/04/20 12:07 Admit to Inpatient, Acute [STATUS] Routine Location: [facility] Primary diagnosis: pneumonia Isolation: Standard precautions [...] % (Auto) 72.0, Lymph % (Auto) 15.8, Jenkins % (Auto) 9.7, Eos % (Auto) 0.5, [...] DA Report Cosigners: D: ARYVI 10/05/201522 T: ARYVI 10/05/201522 CC: Name Value Range Interpretation Code Description Data Poonam rce(s) Supporting Document(s) ID Date Data Source [id number] 10/05/2020 08:03:00 AM EST [facility] Name Value Range Interpretation Code Description Data Poonam rce(s) Supporting Document(s) Leukocytes [#/volume] in Blood by Automated count 7.7 10*3/uL 4.45-10 .71 N [facility] Erythrocytes [#/volume] in Blood by Automated count 3.10 10*6/uL 4.20-5.40 Below low normal [facility] Hemoglobin [Moles/volume] in Blood 8.8 g/dL 10.7-15.4 Below low no rmal [facility] Hematocrit [Volume Fraction] of Blood by Automated count 29.7 % 37-47 Below low normal [facility] Erythrocyte mean corpuscular volume [Ent itic volume] in Cord blood by Automated count 95.8 fL 80-96 N [facility] Erythrocyte mean corpuscular hemoglobin [Entitic mass] by Automated count 28.4 pg 27-31 N [facility] Erythrocyte mean corpuscular hemoglobin concentration [Mass/volume] in Cord blood 29.6 g/dL 33-37 Below low normal [facility] Erythrocyte distribution width [Entitic volume] by Automated count 15 % 11-15 N [facility] Platelets [#/volume] in Blood by Automated count 414 10*3/uL 130-472 N [facility] Platelet mean volume [Entitic volume] in Blood 9.4 fL 9.1-13.1 N [facility] Neutrophils/100 leukocytes in Blood by Automated count 72.0 % 41- 77 [facility] Neutrophils [#/volume] in Blood by Automated count 5.5 U 1.7-7.6 N [facility] Lymphocytes/100 leukocytes in Blood by Automated count 15.8 % 14- 46 N [facility] Lymphocytes [#/volume] in Blood by Automated count 1.2 U 0.6-4.6 N [facility] Monocytes/100 leukocytes in Blood by Automated count 9.7 % 4-12 N [facility] Monocytes [#/volume] in Blood by Automated count 0.8 U 0.2-1.2 N [facility] Eosinophils/100 leukocytes in Blood by Automated count 0.5 % 0-7 N [facility] Eosinophils [#/volume] in Blood by Automated count 0.0 U 0.0-0.5 N [facility] Basophils/100 leukocytes in Blood by Automated count 0.4 % 0.4-1 .3 N [facility] Basophils [#/volume] in Blood by Automated count 0.0 U 0.0-0.2 N [facility] NUCLEATED RED BLOOD CELL 0 % [facility] NUCLEATED RED BLOOD CELL# 0 U [facility] Immature granulocytes [Presence] in Blood by Automated count 0-2 N [facility] Immature granulocytes [#/volume] in Blood by Automated count 0.1 U 0-0.1 N [facility] Manual Differential panel - Blood NO [facility] ID Date Data Source [id number] 10/05/2020 08:30:00 AM EST [facility] Name Value Range Interpretation Code Description Data Poonam rce(s) Supporting Document(s) Urea nitrogen [Mass/volume] in Serum or Plasma 6 mg/dL 9-23 Below low normal [facility] Sodium [Moles/volume] in Serum or Plasma 142 mmol/L 132-146 [facility] Potassium [Moles/volume] in Serum or Plasma 3.5 mmol/L 3.5-5.5 [facility] Chloride [Moles/volume] in Serum or Plasma 108 mmol/L 99-109 [facility] Carbon dioxide, total [Moles/volume] in Serum or Plasma 27 mmol/L 20 -31 N [facility] Anion gap in Serum or Plasma 11 mmol/L 8-16 N [facility] Glucose [Mass/volume] in Serum or Plasma 92 mg/dL 74-106 N [facility] Creatinine 0.6 mg/dL 0.5-1.1 Health system Glomerular filtration rate/1.73 sq M.pre dicted [Volume Rate/Area] in Serum or Plasma Greater Than 60 ABOVE 60 [facility] Alanine aminotransferase [Enzymatic acti vity/volume] in Serum or Plasma by With P-5'-P 14 U/L 10-49 N [facility] ital Aspartate aminotransferase [Enzymatic ac tivity/volume] in Serum or Plasma by With P-5'-P 12 U/L 0-33 N [facility] pital Alkaline phosphatase [Enzymatic activity/volume] in Serum or Plasma 49 U/L 45-129 N [facility] Calcium [Mass/volume] in Serum or Plasma 7.2 mg/dL 8.5-10.1 Below low normal [facility] Bilirubin.total [Mass/volume] in Serum or Plasma 0.2 mg/dL 0.3-1.2 Below low normal [facility] Albumin [Mass/volume] in Serum or Plasma by Bromocresol purple (BCP) dye binding method 2.3 g/dL 3.2-4.8 Below low normal [facility] Protein [Mass/volume] in Serum or Plasma 4.7 g/dL 5.7-8.2 Below low normal [facility] ID Date Data Source [id number] 10/04/2020 07:50:00 PM EST [facility] [address] [place] [id number] [phone] NAME SEX PT STATUS ACCOUNT NUMBER COLBY MULLER ADM IN [id number] ORDERING PHYSICIAN LOCATION MEDICAL RECORD NO. Jerrell Spangler MD [id number] ATTENDING PHYSICIAN DATE OF DATE OF EXAM/TIME [...] rce(s) Supporting Document(s) ID Date Data Source [id number] 10/04/2020 07:49:00 PM EST [facility] [address] [place] [address] [phone] NAME SEX PT STATUS ACCOUNT NUMBER COLBY MULLER ADM IN [id number] ORDERING PHYSICIAN LOCATION MEDICAL RECORD NO. Jerrell Spangler MD EW [id number] ATTENDING PHYSICIAN DATE OF DATE OF EXAM/TIME [...] Copeland MD on 10/04/201948 Date Time CC: Carloe Copeland MD; Wali Ramsey M.D. Techn: VAUGHN Trans Dt/Tm: Trans by: SINTIA Prt Dt/Tm: : T otal DLP = 200.00 mGy-cm : Total Radiation Dose = 3.0000 mSv Lifetime Dose: 4.7810 mSv Name Value Range Interpretation Code Description Data Poonam rce(s) Supporting Document(s) ID Date Data Source [id number] 10/04/2020 04:22:00 PM [facility] Name: COLBY MULLER : 1940 Age: 80 MR#: [id number] Admit Date: 10/04/20 Provider: Jerrell Spangler MD [...] I called pt's son Mr Angel Muller [phone], cell [phone]; pt was recently discharged on 10-01-20. from [facility] after right femur surgery. Pt does [...] History Medication list updated and reviewed:: Yes [facility] Medical History (Updated 10/04/20 @ 17:52 by Jerrell Spangler MD) Afib Dementia Diverticula of colon Myasthenia gravis Right femoral fracture Social History Does the Patient have a Healthcare Proxy: No (PNP) Does Patient have a DNR?: No (PNP) Does Patient have a Living Will?: No Hx Recent Travel (where): No Smoking Status: Unknown if ever smoked Additional [facility] information Additional Family History: pt is [...] 87.0 H, Lymph % (Auto) 6.8 L, Jenkins % (Auto) 4.5, Eos % (Auto) 0.1, [...] L 10/04/20 12:40: Lactic Acid 2.0 Microbiology 10/04/20 10:45 Nasopharyngeal Influenza-Like Illness (PCR) [...] by Jerrell Spangler MD> Jerrell Spangler MD 10/04/20 181 Jerrell Spangler MD SIGNATURE DA Report Cosigners: D: MARIETTA 10/04/201621 T: MARIETTA 10/04/201621 CC: Name Value Range Interpretation Code Description Data Poonam rce(s) Supporting Document(s) ID Date Data Source [id number] 10/04/2020 01:06:00 PM [facility] Special Instructions: Lab may order repe at test if initial test elevatedPhysician If elevated, reflex second test in 4-6 hrs Name Value Range Interpretation Code Description Data Poonam rce(s) Supporting Document(s) Lactic w Rfx (if elevated) 2.0 mmol/L 0.5-2.0 N [facility] ID Date Data Source [id number] 10/09/2020 12:44:00 PM [facility] Special Instructions: Lab may order repe at test if initial test elevatedPhysician If elevated, reflex second test in 4-6 hrs Name Value Range Interpretation Code Description Data Poonam rce(s) Supporting Document(s) Bacteria identified in Blood by Culture [facility] NO GROWTH AFTER 5 DAYS ID Date Data Source [id number] 10/04/2020 10:59:00 AM [facility] [address] [place] [address] [phone] NAME SEX PT STATUS ACCOUNT NUMBER COLBY MULLER [facility] ER [id number] ORDERING PHYSICIAN LOCATION MEDICAL RECORD NO. Max Coffey MD ER [id number] ATTENDING PHYSICIAN DATE OF DATE OF EXAM/TIME Wali Ramsey 1940 10/04/201008 TYPE / EXAM Xray Chest [...] M.D. Reported By Papo Montoya MD on 10/04/201058 Signed By Papo Montoya MD on 10/04/201058 Date Time CC: Wali Ramsey M.D.; Papo Montoya MD Techn: EBEBR Trans Dt/Tm: Trans by: DT Prt Dt/Tm: [id number]: Total DLP = 0.00 mGy-cm Fluoroscopy Time (in secs): Name Value Range Interpretation Code Description Data Poonam rce(s) Supporting Document(s) ID Date Data Source [id number] 10/04/2020 10:53:00 AM [facility] ED Physician Documentation NAME: COLBY MULLER : 1940 AGE: 80 MR#: [id number] SERVICE DATE: 10/04/[address]: Max Coffey MD PRIMARY CARE DR: Wali Ramsey M.D. ROOM#: [id number] [facility] (Adult, General) General Chief Complaint: Multi system [...] 87.0 H, Lymph % (Auto) 6.8 L, Jenkins % (Auto) 4.5, Eos % (Auto) 0.1, [...] rce(s) Supporting Document(s) ID Date Data Source [id number] 10/04/2020 11:17:00 AM [facility] Diana Marie is a rapid, automated qualita tive anddifferentiation of Influenza type A,B and VBWO-[id number]-RT-PCR testNORMAL VALUE IS "NOT DETECTED".Limitations of the diana marie Influenza A/B & IKCZ-YNC-9mnbzu method.Modifications to manufacturers recommendation and proceduresmay alter performance of the test.Negative results do not preclude Influenza A,B or SARS- NRP3mslayxuxsm and should not be used as the [...] rce(s) Supporting Document(s) ID Date Data Source [id number] 10/04/2020 11:17:00 AM [facility] Diana Marie is a rapid, automated qualita tive anddifferentiation of Influenza type A,B and SJQH-[id number]-RT-PCR testNORMAL VALUE IS "NOT DETECTED".Limitations of the diana marie Influenza A/B & RRYY-IPX-4dczag method.Modifications to manufacturers recommendation and proceduresmay alter performance of the test.Negative results do not preclude Influenza A,B or SARS- XWI1elvpaxoerq and should not be used as the [...] Name Value Range Interpretation Code Description Data [facility] rce(s) Supporting Document(s) Extended hours FLU/COV2 NAAT [facility] ID Date Data Source [id number] 10/04/2020 11:08:00 AM [facility] @10/04/20 1101: MANUAL DIFF added. RFLXG = DIFF. @10/04/20 1101: MANUAL DIFF added. RFLXG = DIFF. Name Value Range Interpretation Code Description Data Poonam rce(s) Supporting Document(s) Prothrombin Time (Patient) 11.4 s 9.6-12.3 N [facility] INR 1.1 0.9-1.1 N [facility] THE INR IS OPERATIONALLY DEFINED FOR [facility]ERSON SH PLASMA FROMPATIENTS STABILIZED ON ORAL ANTICOAGULANTS.ROUTINE ANTICOAGULANT THERAPY 2.0-3.0RECURRENT SYSTEMIC EMBOLISM/HEART VALVE REPLACEMENT 2.5-3.5 aPTT.lupus sensitive (LA screen) 25.5 s 22.7-31.6 N [facility] ID Date Data Source [id number] 10/04/2020 11:14:00 AM EST [facility] @10/04/20 1101: MANUAL DIFF added. RFLXG = DIFF. @10/04/20 1101: MANUAL DIFF added. RFLXG = DIFF. Name Value Range Interpretation Code Description Data Poonam rce(s) Supporting Document(s) Urea nitrogen [Mass/volume] in Serum or Plasma 10 mg/dL 9-23 N [facility] Sodium [Moles/volume] in Serum or Plasma 137 mmol/L 132-146 [facility] Potassium [Moles/volume] in Serum or Plasma 3.4 mmol/L 3.5-5.5 Below low normal [facility] Chloride [Moles/volume] in Serum or Plasma 104 mmol/L 99-109 [facility] Carbon dioxide, total [Moles/volume] in Serum or Plasma 25 mmol/L 20 -31 N [facility] Anion gap in Serum or Plasma 11 mmol/L 8-16 N [facility] Glucose [Mass/volume] in Serum or Plasma 100 mg/dL 74-106 N [facility] Creatinine 0.8 mg/dL 0.5-1.1 Health system Glomerular filtration rate/1.73 sq M.pre dicted [Volume Rate/Area] in Serum or Plasma Greater Than 60 ABOVE 60 [facility] Alanine aminotransferase [Enzymatic acti vity/volume] in Serum or Plasma by With P-5'-P 16 U/L 10-49 N [facility] ital Aspartate aminotransferase [Enzymatic ac tivity/volume] in Serum or Plasma by With P-5'-P 9 U/L 0-33 N [facility] pital Alkaline phosphatase [Enzymatic activity/volume] in Serum or Plasma 55 U/L 45-129 N [facility] Calcium [Mass/volume] in Serum or Plasma 7.7 mg/dL 8.5-10.1 Below low normal [facility] Bilirubin.total [Mass/volume] in Serum or Plasma 0.3 mg/dL 0.3-1.2 N [facility] Albumin [Mass/volume] in Serum or Plasma by Bromocresol purple (BCP) dye binding method 2.5 g/dL 3.2-4.8 Below low normal [facility] Protein [Mass/volume] in Serum or Plasma 5.5 g/dL 5.7-8.2 Below low normal [facility] ID Date Data Source [id number] 10/04/2020 11:37:00 AM EST [facility] @10/04/20 1101: MANUAL DIFF added. RFLXG = DIFF. @10/04/20 1101: MANUAL DIFF added. RFLXG = DIFF. Name Value Range Interpretation Code Description Data Poonam rce(s) Supporting Document(s) Leukocytes [#/volume] in Blood by Automated count 11.5 10*3/uL 4.45-10.71 Above high normal [facility] Erythrocytes [#/volume] in Blood by Automated count 3.61 10*6/uL 4.20-5.40 Below low normal [facility] Hemoglobin [Moles/volume] in Blood 10.3 g/dL 10.7-15.4 Below low no rmal [facility] Hematocrit [Volume Fraction] of Blood by Automated count 33.9 % 37-47 Below low normal [facility] Erythrocyte mean corpuscular volume [Ent itic volume] in Cord blood by Automated count 93.9 fL 80-96 N [facility] Erythrocyte mean corpuscular hemoglobin [Entitic mass] by Automated count 28.5 pg 27-31 N [facility] Erythrocyte mean corpuscular hemoglobin concentration [Mass/volume] in Cord blood 30.4 g/dL 33-37 Below low normal [facility] Erythrocyte distribution width [Entitic volume] by Automated count 15 % 11-15 [facility] Platelets [#/volume] in Blood by Automated count 430 10*3/uL 130-472 N [facility] Platelet mean volume [Entitic volume] in Blood 9.1 fL 9.1-13.1 N [facility] Neutrophils/100 leukocytes in Blood by Automated count 87.0 % 41-77 Above high normal [facility] Neutrophils [#/volume] in Blood by Automated count 10.0 U 1.7-7.6 Above high normal [facility] Lymphocytes/100 leukocytes in Blood by Automated count 6.8 % 14-46 Below low normal [facility] Lymphocytes [#/volume] in Blood by Automated count 0.8 U 0.6-4.6 N [facility] Monocytes/100 leukocytes in Blood by Automated count 4.5 % 4-12 N [facility] Monocytes [#/volume] in Blood by Automated count 0.5 U 0.2-1.2 N [facility] Eosinophils/100 leukocytes in Blood by Automated count 0.1 % 0-7 N [facility] Eosinophils [#/volume] in Blood by Automated count 0.0 U 0.0-0.5 [facility] Basophils/100 leukocytes in Blood by Automated count 0.3 % 0.4-1.3 Below low normal [facility] Basophils [#/volume] in Blood by Automated count 0.0 U 0.0-0.2 N [facility] NUCLEATED RED BLOOD CELL 0 % [facility] NUCLEATED RED BLOOD CELL# 0 U [facility] Immature granulocytes [Presence] in Blood by Automated count 0-2 N [facility] Immature granulocytes [#/volume] in Blood by Automated count 0.2 U 0-0.1 Above high normal [facility] Manual Differential panel - Blood Manual Diff Added [facility] ID Date Data Source [id number] 10/04/2020 11:14:00 AM EST [facility] @10/04/20 1101: MANUAL DIFF added. RFLXG = DIFF. @10/04/20 1101: MANUAL DIFF added. RFLXG = DIFF. Name Value Range Interpretation Code Description Data Poonam rce(s) Supporting Document(s) Troponin I.cardiac [Mass/volume] in Serum or Plasma Less Than 0.015 0.00-0.09 [facility] Less than 0.09 NG/ML Negative0.10 - 0.77 NG/ML High Risk0.78 NG/ML or Greater PositiveThe WHO defined the cutoff (definition for diagnosis of MO)for this method as 0.78 ng/ml. ID Date Data Source [id number] 10/04/2020 11:37:00 AM EST [facility] @10/04/20 1101: MANUAL DIFF added. RFLXG = DIFF. @10/04/20 1101: MANUAL DIFF added. RFLXG = DIFF. Name Value Range Interpretation Code Description Data Poonam rce(s) Supporting Document(s) Cells counted [#] 100 [facility] Neutrophils [#/volume] in Blood by Manual count 83 % 41-77 Above high normal [facility] Band form neutrophils [#/volume] in Blood by Manual count 2 % 0-5 N [facility] Lymphocytes [#/volume] in Blood by Manual count 10 % 14-46 Below low normal [facility] Monocytes [#/volume] in Blood by Manual count 4 % 4-12 N [facility] Eosinophils [#/volume] in Blood by Manual count 1 % 0-7 N [facility] Platelets [#/volume] in Blood by Estimate APPEARS NORMAL NORMAL [facility] Morphology [Interpretation] in Blood Narrative APPEARS NORMAL NORMAL [facility] ID Date Data Source [id number] 10/04/2020 12:00:00 AM EST [facility] Name Value Range Interpretation Code Description Data Poonam rce(s) Supporting Document(s) SARS-CoV2 Rapid PCR Not Detected [facility] This lab was ordered by [facility] and reported by [facility]. ID Date Data Source [id number] 09/24/2020 07:36:00 AM EST [facility] Name Value Range Interpretation Code Description Data Poonam rce(s) Supporting Document(s) SARS coronavirus 2 RNA Not Detected [facility] This lab was ordered by [facility] and reported by [facility]. ID Date Data Source [id number] 09/17/2020 09:00:00 AM EST [facility] Name Value Range Interpretation Code Description Data Poonam rce(s) Supporting Document(s) [facility] by [facility] and reported by [facility]. ID Date Data Source [id number] 09/10/2020 10:00:00 AM EST [facility] Name Value Range Interpretation Code Description Data Poonam rce(s) Supporting Document(s) SARS coronavirus 2 RNA [facility] This lab was ordered by [facility] and reported by [facility]. ID Date Data Source [id number] 09/03/2020 07:30:00 AM EST [facility] Name Value Range Interpretation Code Description Data Poonam rce(s) Supporting Document(s) SARS coronavirus 2 RNA [facility] This lab was ordered by [facility] and reported by [facility]. ID Date Data Source [id number] 08/27/2020 06:15:00 AM EST [facility] Name Value Range Interpretation Code Description Data Poonam rce(s) Supporting Document(s) SARS coronavirus 2 RNA [facility] This lab was ordered by [facility] and reported by [facility]. ID Date Data Source [id number] 08/20/2020 10:10:00 AM EST [facility] Name Value Range Interpretation Code Description Data Poonam rce(s) Supporting Document(s) SARS coronavirus 2 RNA [facility] This lab was ordered by [facility] and reported by [facility]. ID Date Data Source [id number] 08/13/2020 11:00:00 AM EST [facility] Name Value Range Interpretation Code Description Data Poonam rce(s) Supporting Document(s) SARS coronavirus 2 RNA [facility] This lab was ordered by [facility] and reported by [facility]. ID Date Data Source [id number] 08/06/2020 08:00:00 AM EST [facility] Name Value Range Interpretation Code Description Data Poonam rce(s) Supporting Document(s) SARS coronavirus 2 RNA [facility] This lab was ordered by [facility] and reported by [facility]. ID Date Data Source [id number] 07/31/2020 11:55:00 AM EST [facility] Name Value Range Interpretation Code Description Data Poonam rce(s) Supporting Document(s) SARS coronavirus 2 RNA [facility] This lab was ordered by [facility] and reported by [facility]. ID Date Data Source [id number] 07/18/2020 04:55:10 AM EDT eCW1 ([facility]) Name Value Range Interpretation Code Description Data Poonam rce(s) Supporting Document(s) 2.3 MAGNESIUM LEVEL eCW1 ([facility]) ID Date Data Source C REACTIVE PROTEIN QUANTITATIV (At [facility]) 07/18/2020 04:55 :07 AM EDT eCW1 ([facility]) Name Value Range Interpretation Code Description Data Poonam rce(s) Supporting Document(s) 0.72 C REACTIVE PROTEIN QUANTITATIV eCW1 ([facility]) ID Date Data Source Comprehensive Metabolic Profile (CMP) 07/18/2020 04:55:05 AM EDT eCW1 ([facility]) Name Value Range Interpretation Code Description Data Poonam rce(s) Supporting Document(s) 10 BLOOD UREA NITROGEN eCW1 ([facility]) 90 GLUCOSE, FASTING eCW1 ([facility]) 142 SODIUM LEVEL eCW1 ([facility]) > 60.0 GLOMERULAR FILTRATION RATE eCW 1 ([facility]) 0.80 CREATININE FOR GFR eCW1 ([facility]) 34 CARBON DIOXIDE LEVEL eCW1 ([facility]) 104 CHLORIDE LEVEL eCW1 ([facility]) 8.7 CALCIUM LEVEL eCW1 ([facility]) 3.5 POTASSIUM SERUM eCW1 ([facility]) 52 ALKALINE PHOSPHATASE eCW1 ([facility]) 11 AST/SGOT eCW1 ([facility]) 14 ALT/SGPT eCW1 ([facility]) 0.3 BILIRUBIN,TOTAL eCW1 ([facility]) 1.0 ALBUMIN/GLOBULIN RATIO eCW1 (Critical access hospital) 2.9 ALBUMIN eCW1 ([facility]) 5.7 TOTAL PROTEIN eCW1 ([facility]) ID Date Data Source CBC with Differential 07/18/2020 02:29:56 AM EDT eCW1 ([facility]) Name Value Range Interpretation Code Description Data Poonam rce(s) Supporting Document(s) 10.5 WHITE BLOOD COUNT eCW1 ([facility]) 4.40 RED BLOOD COUNT eCW1 ([facility]) 86.4 MEAN CORPUSCULAR VOLUME eCW1 ( [facility]) 11.1 HEMOGLOBIN eCW1 (Replaced by [facility]) 38.0 HEMATOCRIT eCW1 (Replaced by [facility]) 20.8 RED CELL DISTRIBUTION WIDTH eC W1 ([facility]) 25.2 MEAN CORPUSCULAR HEMOGLOBIN eC W1 ([facility]) 414 PLATELET COUNT, AUTOMATED eCW1 ([facility]) 29.2 MEAN CORPUSCULAR HGB CONC eCW1 ([facility]) 8.3 LYMPH % eCW1 ([facility]) 0.5 EOS % eCW1 ([facility]) 89.0 NEUTROPHILS % eCW1 ([facility]) 1.1 MONO % eCW1 ([facility]) 0.3 BASO % eCW1 ([facility]) 0.9 LYMPH # eCW1 ([facility]) 9.3 NEUTROPHILS # eCW1 ([facility]) 0.1 MONO # eCW1 ([facility]) 0.1 EOS # eCW1 ([facility]) 0.0 BASO # eCW1 ([facility]) ID Date Data Source H PYLORI SERUM QUANT IgG LAST 07/04/2020 03:11:07 AM EDT eCW1 ([facility]) Name Value Range Interpretation Code Description Data Poonam rce(s) Supporting Document(s) 0.18 H PYLORI SERUM QUANT IgG LAST e CW1 ([facility]) ID Date Data Source IBD SEROLOGY PANEL 07/04/2020 03:11:03 AM EDT eCW1 ([facility]) Name Value Range Interpretation Code Description Data Poonam rce(s) Supporting Document(s) IBD SEROLOGY PANEL eCW1 ([facility]) ID Date Data Source NT-PRO BNP 07/01/2020 07:56:13 AM EDT eCW1 ([facility]) Name Value Range Interpretation Code Description Data Poonam rce(s) Supporting Document(s) 559 NT-PRO BNP eCW1 (Replaced by [facility]) ID Date Data Source Reticulocyte Count Sysmex 07/01/2020 07:56:04 AM EDT eCW1 (Critical access hospital) Name Value Range Interpretation Code Description Data Poonam rce(s) Supporting Document(s) 0.8 RETICULOCYTE % eCW1 ([facility]) ID Date Data Source VITAMIN D [id number] 11/22/2019 12:00:00 AM EST eCW1 ([facility]) Name Value Range Interpretation Code Description Data Poonam rce(s) Supporting Document(s) 96.4 30.0-100.0 TOTAL 25(OH) VITAMIN D eC W1 ([facility]) ID Date Data Source PTH INTACT 11/22/2019 12:00:00 AM EST eCW1 ([facility]) Name Value Range Interpretation Code Description Data Poonam rce(s) Supporting Document(s) 216.7 18.5-88.0 PTH INTACT eCW1 (Replaced by [facility]) ID Date Data Source [id number] 11/22/2019 12:00:00 AM EST eCW1 ([facility]) Name Value Range Interpretation Code Description Data Poonam rce(s) Supporting Document(s) Hemoglobin A1c/Hemoglobin.total in Blood 5.8 HEMOGLOBIN A1c eCW1 ([facility]) ID Date Data Source [id number] 10/01/2019 02:04:00 PM EST [facility] ([facility]) Name Value Range Interpretation Code Description Data Poonam rce(s) Supporting Document(s) Creatinine [Mass/volume] in Blood 1.1 0.6-1.3 [facility] ([facility]) ID Date Data Source [id number] 10/01/2019 02:04:00 PM EST [facility] ([facility]) Name Value Range Interpretation Code Description Data Poonam rce(s) Supporting Document(s) Urea nitrogen [Mass/volume] in Blood 15 8-26 [facility] ([facility]) ID Date Data Source [id number] 10/01/2019 02:04:00 PM EST [facility] ([facility]) Name Value Range Interpretation Code Description Data Poonam rce(s) Supporting Document(s) Carbon dioxide, total [Moles/volume] in Blood 30.0 23.0-27.0 [facility] ([facility]) ID Date Data Source [id number] 10/01/2019 02:04:00 PM EST [facility] ([facility] ) Name Value Range Interpretation Code Description Data Poonam rce(s) Supporting Document(s) Chloride [Moles/volume] in Blood 100 98-109 [facility] ([facility]) ID Date Data Source [id number] 10/01/2019 02:04:00 PM EST [facility] ([facility] ) Name Value Range Interpretation Code Description Data Poonam rce(s) Supporting Document(s) Calcium.ionized [Moles/volume] in Blood 4.2 4.5-5.3 [facility] ([facility] ) ID Date Data Source [id number] 10/01/2019 02:04:00 PM EST [facility] ([facility] ) Name Value Range Interpretation Code Description Data Poonam rce(s) Supporting Document(s) Potassium [Moles/volume] in Blood 3.6 3.5-5.1 [facility] ([facility] ) ID Date Data Source [id number] 10/01/2019 02:04:00 PM EST [facility] ([facility] ) Name Value Range Interpretation Code Description Data Poonam rce(s) Supporting Document(s) Sodium [Moles/volume] in Blood 139 136-145 [facility] ([facility] ) ID Date Data Source [id number] 10/01/2019 02:04:00 PM EST [facility] ([facility] ) Name Value Range Interpretation Code Description Data Poonam rce(s) Supporting Document(s) Glucose [Mass/volume] in Blood 107 70-105 [facility] ([facility]) ID Date Data Source [id number] 10/01/2019 02:04:00 PM EST [facility] ([facility] ) Name Value Range Interpretation Code Description Data Poonam rce(s) Supporting Document(s) Hematocrit [Volume Fraction] of Blood 35.0 38.0-51.0 [facility] ([facility]) ID Date Data Source [id number] 10/01/2019 01:58:00 PM EST [facility] ([facility] ) Name Value Range Interpretation Code Description Data Poonam rce(s) Supporting Document(s) Basophils/100 leukocytes in Blood by Automated count 0.2 0.0-1 .0 [facility] ([facility]) ID Date Data Source [id number] 10/01/2019 01:58:00 PM EST [facility] ([facility]) Name Value Range Interpretation Code Description Data Poonam rce(s) Supporting Document(s) Eosinophils/100 leukocytes in Blood by Automated count 0.2 0.0 -3.0 [facility] ([facility]) ID Date Data Source [id number] 10/01/2019 01:58:00 PM EST [facility] ([facility]) Name Value Range Interpretation Code Description Data Poonam rce(s) Supporting Document(s) Monocytes/100 leukocytes in Blood by Automated count 5.5 0.0-5 .0 [facility] ([facility]) ID Date Data Source [id number] 10/01/2019 01:58:00 PM EST [facility] ([facility]) Name Value Range Interpretation Code Description Data Poonam rce(s) Supporting Document(s) Lymphocytes/100 leukocytes in Blood by Automated count 9.6 24. 0-44.0 [facility] ([facility]) ID Date Data Source [id number] 10/01/2019 01:58:00 PM EST [facility] ([facility]) Name Value Range Interpretation Code Description Data Poonam rce(s) Supporting Document(s) Neutrophils [#/volume] in Blood by Automated count 84.0 36.0-66 .0 [facility] ([facility]) ID Date Data Source [id number] 10/01/2019 01:58:00 PM EST [facility] ([facility]) Name Value Range Interpretation Code Description Data Poonam rce(s) Supporting Document(s) Platelets [#/volume] in Blood by Automated count 414 150-450 [facility] ([facility]) ID Date Data Source [id number] 10/01/2019 01:58:00 PM EST [facility] ([facility]) Name Value Range Interpretation Code Description Data Poonam rce(s) Supporting Document(s) Erythrocyte distribution width [Ratio] by Automated count 16.9 11.5-14.5 [facility] ([facility]) ID Date Data Source [id number] 10/01/2019 01:58:00 PM EST [facility] ([facility]) Name Value Range Interpretation Code Description Data Poonam rce(s) Supporting Document(s) Erythrocyte mean corpuscular hemoglobin concentration [Mass/volume] by Automated count 30.1 32.0-36.5 [facility] ID Date Data Source [id number] 10/01/2019 01:58:00 PM EST [facility] ([facility]) Name Value Range Interpretation Code Description Data Poonam rce(s) Supporting Document(s) Erythrocyte mean corpuscular hemoglobin [Entitic mass] by Au tomated count 25.9 27.0-33.0 [facility] ([facility]) ID Date Data Source [id number] 10/01/2019 01:58:00 PM EST [facility] ([facility]) Name Value Range Interpretation Code Description Data Poonam rce(s) Supporting Document(s) Erythrocyte mean corpuscular volume [Entitic volume] by Auto mated count 86.0 80.0-96.0 [facility] ([facility]) ID Date Data Source [id number] 10/01/2019 01:58:00 PM EST [facility] ([facility]) Name Value Range Interpretation Code Description Data Poonam rce(s) Supporting Document(s) Hematocrit [Volume Fraction] of Blood by Automated count 36.2 3 6.0-47.0 [facility] ([facility]) ID Date Data Source [id number] 10/01/2019 01:58:00 PM EST [facility] ([facility]) Name Value Range Interpretation Code Description Data Poonam rce(s) Supporting Document(s) Hemoglobin [Mass/volume] in Blood 10.9 12.0-15.5 [facility] ([facility]) ID Date Data Source [id number] 10/01/2019 01:58:00 PM EST [facility] ([facility]) Name Value Range Interpretation Code Description Data Poonam rce(s) Supporting Document(s) Erythrocytes [#/volume] in Blood by Automated count 4.21 4.00-5 .40 [facility] ([facility]) ID Date Data Source [id number] 10/01/2019 01:58:00 PM EST [facility] ([facility]) Name Value Range Interpretation Code Description Data Poonam rce(s) Supporting Document(s) Leukocytes [#/volume] in Blood by Automated count 12.8 4.0-10.0 [facility] ([facility]) ID Date Data Source [id number] 10/01/2019 01:58:00 PM EST [facility] ([facility]) Name Value Range Interpretation Code Description Data Poonam rce(s) Supporting Document(s) Lipase [Enzymatic activity/volume] in Serum or Plasma 296 [id number] 93 MEDENT ([facility]) ID Date Data Source [id number] 10/01/2019 01:58:00 PM EST MEDENT ([facility]) Name Value Range Interpretation Code Description Data Poonam rce(s) Supporting Document(s) Albumin/Globulin [Mass Ratio] in Serum or Plasma 1.38 1.00-1.93 MEDENT ([facility]) ID Date Data Source [id number] 10/01/2019 01:58:00 PM EST MEDENT ([facility]) Name Value Range Interpretation Code Description Data Poonam rce(s) Supporting Document(s) Albumin [Mass/volume] in Serum or Plasma 4.0 3.2-5.2 MEDENT ([facility]) ID Date Data Source [id number] 10/01/2019 01:58:00 PM EST MEDENT ([facility]) Name Value Range Interpretation Code Description Data Poonam rce(s) Supporting Document(s) Protein [Mass/volume] in Serum or Plasma 6.9 6.4-8.2 MEDENT ([facility]) ID Date Data Source [id number] 10/01/2019 01:58:00 PM EST MEDENT ([facility]) Name Value Range Interpretation Code Description Data Poonam rce(s) Supporting Document(s) Bilirubin.direct [Mass/volume] in Serum or Plasma Laboratory test result 0.0-0.2 MEDENT ([facility]) ID Date Data Source [id number] 10/01/2019 01:58:00 PM EST MEDENT ([facility]) Name Value Range Interpretation Code Description Data Poonam rce(s) Supporting Document(s) Bilirubin.total [Mass/volume] in Serum or Plasma 0.4 0.2-1.0 MEDENT ([facility]) ID Date Data Source [id number] 10/01/2019 01:58:00 PM EST MEDENT ([facility]) Name Value Range Interpretation Code Description Data Poonam rce(s) Supporting Document(s) Alkaline phosphatase [Enzymatic activity/volume] in Serum or Soledad sma 43 45-117 MEDENT ([facility]) ID Date Data Source [id number] 10/01/2019 01:58:00 PM EST MEDENT ([facility]) Name Value Range Interpretation Code Description Data Poonam rce(s) Supporting Document(s) Alanine aminotransferase [Enzymatic activity/volume] in Seru m or Plasma 23 12-78 MED[facility] ([facility]) ID Date Data Source [id number] 10/01/2019 01:58:00 PM EST MEDENT ([facility]) Name Value Range Interpretation Code Description Data Poonam rce(s) Supporting Document(s) Aspartate aminotransferase [Enzymatic activity/volume] in Se rum or Plasma 15 7-37 MED[facility] ([facility]) ID Date Data Source [id number] 10/01/2019 01:58:00 PM EST MEDENT ([facility]) Name Value Range Interpretation Code Description Data Poonam rce(s) Supporting Document(s) Neutrophils [#/volume] in Blood by Automated count 10.8 1.5-8.5 MEDENT ([facility]) ID Date Data Source [id number] 10/01/2019 01:58:00 PM EST MEDENT ([facility]) Name Value Range Interpretation Code Description Data Poonam rce(s) Supporting Document(s) Nucleated erythrocytes/100 leukocytes [Ratio] in Blood by Au tomated count 0.0 0-0 MEDENT ([facility]) ID Date Data Source [id number] 10/01/2019 01:58:00 PM EST MEDENT ([facility]) Name Value Range Interpretation Code Description Data Poonam rce(s) Supporting Document(s) Immature granulocytes/100 leukocytes in Blood by Automated count 0.5 0-3.0 MEDENT ([facility]) ID Date Data Source [id number] 10/01/2019 01:58:00 PM EST MEDENT ([facility]) Name Value Range Interpretation Code Description Data Poonam rce(s) Supporting Document(s) Urine Color Laboratory test result MEDEN T ([facility]) Urine Appearance Laboratory test result MEDENT ([facility]) pH of Urine 8.0 5.0-9.0 MEDENT ([facility]) Urine Protein Laboratory test result MEDENT ([facility] Urine Specific Peggs 1.002 1.002-1.035 M EDENT ([facility] ) Urine Glucose (Ua) Laboratory test result MEDENT ([facility]) Urine Bilirubin Laboratory test result MEDENT ([facility] ) Urine Ketones Laboratory test result MEDENT ([facility] ) Urine Urobilinogen 0.2 0.0-2.0 MEDENT ([facility]) Urine Nitrite Laboratory test result MEDENT ([facility]) Urine Leukocyte Esterase Laboratory test result MEDENT ([facility] Urine Blood Laboratory test result MEDEN T ([facility] Urine Bacteria (Auto) Laboratory test result MEDENT ([facility] Urine RBC (Auto) 0 0-3 MED[facility] ([facility]) Urine WBC (Auto) 0 0-3 MED[facility] ([facility] Urine Squamous Epithelial Cells 0 0-6 MEDENT ([facility] Urine Mucus (Auto) Laboratory test result MEDENT ([facility] ) Urine Hyaline Casts (Auto) 0 0-1 MED ENT ([facility] ) Amorphous sediment [Presence] in Urine sediment by Lig ht microscopy Laboratory test result MEDENT ([facility]) ID Date Data Source [id number] 10/01/2019 01:58:00 PM EST MEDENT ([facility]) Name Value Range Interpretation Code Description Data Poonam rce(s) Supporting Document(s) Basophils [#/volume] in Blood by Automated count 0.0 0.0-0.2 MED[facility] ([facility]) ID Date Data Source [id number] 10/01/2019 01:58:00 PM EST MEDENT ([facility]) Name Value Range Interpretation Code Description Data Poonam rce(s) Supporting Document(s) Eosinophils [#/volume] in Blood by Automated count 0.0 0.0-0.5 MEDENT ([facility]) ID Date Data Source [id number] 10/01/2019 01:58:00 PM EST MEDENT ([facility]) Name Value Range Interpretation Code Description Data Poonam rce(s) Supporting Document(s) Monocytes [#/volume] in Blood by Automated count 0.7 0.0-0.8 MED[facility] ([facility]) ID Date Data Source [id number] 10/01/2019 01:58:00 PM EST MEDENT ([facility]) Name Value Range Interpretation Code Description Data Poonam rce(s) Supporting Document(s) Lymphocytes [#/volume] in Blood by Automated count 1.2 1.5-5.0 MEDENT ([facility]) Procedure Social History Code Duration Value Status Description Data Source(s ) Smoking 10/17/2020 12:00:00 AM EST Never Smoker completed Never S moker eCW1 ([facility]) Smoking 10/17/2020 12:00:00 AM EST Never Smoker completed Never S moker eCW1 ([facility]) Smoking 10/17/2020 12:00:00 AM EST Never Smoker completed Never S moker eCW1 ([facility]) Smoking 10/17/2020 12:00:00 AM EST Never Smoker completed Never S moker eCW1 ([facility]) 10/06/2020 11:09:21 AM EST Unknown if ever smoked comp leted Unknown if ever smoked [facility] Smoking 10/06/2020 11:09:00 AM EST Unknown if ever smoked comp leted Unknown if ever smoked [facility] 10/04/2020 11:22:00 AM EST Unknown if ever smoked comp leted Unknown if ever smoked [facility] Smoking 10/04/2020 11:22:00 AM EST Unknown if ever smoked comp leted Unknown if ever smoked [facility] Smoking 07/18/2020 12:00:00 AM EDT Never Smoker completed Never S moker eCW1 ([facility]) Smoking 07/18/2020 12:00:00 AM EDT Never Smoker completed Never S moker eCW1 ([facility]) Smoking 07/18/2020 12:00:00 AM EDT Never Smoker completed Never S moker eCW1 ([facility]) Smoking 07/18/2020 12:00:00 AM EDT Never Smoker completed Never S moker eCW1 ([facility]) Smoking 07/18/2020 12:00:00 AM EDT Never Smoker completed Never S moker eCW1 ([facility]) Smoking 07/18/2020 12:00:00 AM EDT Never Smoker completed Never S moker eCW1 ([facility]) Smoking 07/18/2020 12:00:00 AM EDT Never Smoker completed Never S moker eCW1 ([facility]) Smoking 07/10/2020 12:00:00 AM EDT Never Smoker completed Never S moker eCW1 ([facility]) Smoking 07/10/2020 12:00:00 AM EDT Never Smoker completed Never S moker eCW1 ([facility]) Smoking 07/10/2020 12:00:00 AM EDT Never Smoker completed Never S moker eCW1 ([facility]) Smoking 07/10/2020 12:00:00 AM EDT Never Smoker completed Never S moker eCW1 ([facility]) Smoking 07/10/2020 12:00:00 AM EDT Never Smoker completed Never S moker eCW1 ([facility]) Smoking 07/01/2020 12:00:00 AM EDT Never Smoker completed Never S moker eCW1 ([facility]) Smoking 07/01/2020 12:00:00 AM EDT Never Smoker completed Never S moker eCW1 ([facility]) Smoking 02/28/2020 12:00:00 AM EDT Never Smoker completed Never S moker eCW1 ([facility]) Smoking 02/28/2020 12:00:00 AM EDT Never Smoker completed Never S moker eCW1 ([facility]) Smoking 02/28/2020 12:00:00 AM EDT Never Smoker completed Never S moker eCW1 ([facility]) Smoking 02/28/2020 12:00:00 AM EDT Never Smoker completed Never S moker eCW1 ([facility]) Smoking 02/28/2020 12:00:00 AM EDT Never Smoker completed Never S moker eCW1 ([facility]) Smoking 02/28/2020 12:00:00 AM EDT Never Smoker completed Never S moker eCW1 ([facility]) Smoking 11/22/2019 12:00:00 AM EST Never Smoker completed Never S moker eCW1 ([facility]) Vital Signs ID Date Data Source UNK Name Value Range Interpretation Code Description Data Source(s) Diastolic blood pressure 58 mm[Hg] 58 mm[Hg] eCW1 ([facility]) Systolic blood pressure 102 mm[Hg] 102 mm[Hg] e CW1 ([facility]) Body temperature 97.8 [degF] 97.8 [degF] eCW1 ( [facility]) Respiratory rate 20 /min 20 /min eCW1 ([facility]) Heart rate 87 /min 87 /min eCW1 ([facility]) Body mass index (BMI) [Ratio] 20.64 kg/m2 20.64 kg/m2 eCW1 ([facility]) Body height 67 [in_i] 67 [in_i] eCW1 ([facility]) Body weight 131.8 [lb_av] 131.8 [lb_av] eCW1 ([facility] Body temperature 97.5 [degF] 97.5 [degF] MEDENT ([facility] [place] body weight 135 [lb_av] 135 [lb_av] MEDEN T ([facility] Body mass index (BMI) [Ratio] 20.4 kg/m2 20.4 k g/m2 MEDENT ([facility] Body weight 130.00 [lb_av] 130.00 [lb_av] MEDEN T ([facility] ) Body height 67 [in_i] 67 [in_i] MEDENT ([facility] 5'7" Respiratory rate 12 /min 12 /min MEDENT ( [facility] ) Diastolic blood pressure 58 mm[Hg] 58 mm[Hg] eCW1 ([facility]) Systolic blood pressure 100 mm[Hg] 100 mm[Hg] e CW1 ([facility]) Body temperature 98.2 [degF] 98.2 [degF] eCW1 ( [facility]) Respiratory rate 20 /min 20 /min eCW1 ([facility]) Heart rate 71 /min 71 /min eCW1 ([facility]) Body mass index (BMI) [Ratio] 20.20 kg/m2 20.20 kg/m2 eCW1 ([facility]) Body height 67 [in_i] 67 [in_i] eCW1 ([facility]) Body weight 129.0 [lb_av] 129.0 [lb_av] eCW1 ([facility]) Diastolic blood pressure 70 mm[Hg] 70 mm[Hg] eCW1 ([facility]) Systolic blood pressure 112 mm[Hg] 112 mm[Hg] e CW1 ([facility]) Body temperature 98.1 [degF] 98.1 [degF] eCW1 ( [facility]) Respiratory rate 20 /min 20 /min eCW1 ([facility]) Heart rate 84 /min 84 /min eCW1 ([facility]) Body mass index (BMI) [Ratio] 20.20 kg/m2 20.20 kg/m2 eCW1 ([facility]) Body height 67 [in_i] 67 [in_i] eCW1 ([facility]) Body weight 129.0 [lb_av] 129.0 [lb_av] eCW1 ([facility]) Diastolic blood pressure 62 mm[Hg] 62 mm[Hg] eCW1 ([facility]) Systolic blood pressure 100 mm[Hg] 100 mm[Hg] e CW1 ([facility]) Body temperature 97.4 [degF] 97.4 [degF] eCW1 ( [facility]) Respiratory rate 20 /min 20 /min eCW1 ([facility]) Heart rate 76 /min 76 /min eCW1 ([facility]) Body mass index (BMI) [Ratio] 20.05 kg/m2 20.05 kg/m2 eCW1 ([facility]) Body height 67 [in_i] 67 [in_i] eCW1 ([facility]) Body weight 128.0 [lb_av] 128.0 [lb_av] eCW1 ([facility]) [place] body weight 135 [lb_av] 135 [lb_av] MEDEN T ([facility]) Body mass index (BMI) [Ratio] 20.4 kg/m2 20.4 k g/m2 MEDENT ([facility]) Body weight 130.00 [lb_av] 130.00 [lb_av] MEDEN T ([facility]) Body height 67 [in_i] 67 [in_i] MEDENT ([facility]) 5'7" Respiratory rate 12 /min 12 /min MEDENT ( [facility]) [place] body weight 135 [lb_av] 135 [lb_av] MEDEN T ([facility]) Body mass index (BMI) [Ratio] 20.4 kg/m2 20.4 k g/m2 MEDENT ([facility]) Body weight 130.00 [lb_av] 130.00 [lb_av] MEDEN T ([facility]) Body height 67 [in_i] 67 [in_i] MEDENT ([facility]) 5'7" Respiratory rate 12 /min 12 /min MEDENT ( [facility]) Body temperature 97.2 [degF] 97.2 [degF] eCW1 ( [facility]) Respiratory rate 20 /min 20 /min eCW1 ([facility]) Heart rate 92 /min 92 /min eCW1 ([facility]) Body mass index (BMI) [Ratio] 20.23 kg/m2 20.23 kg/m2 eCW1 ([facility]) Body height 67 [in_i] 67 [in_i] eCW1 ([facility]) Body weight 129.2 [lb_av] 129.2 [lb_av] eCW1 ([facility]) Diastolic blood pressure 64 mm[Hg] 64 mm[Hg] eCW1 ([facility]) Systolic blood pressure 108 mm[Hg] 108 mm[Hg] e CW1 ([facility]) Body weight 55.793 kg 55.793 kg MEDENT ([facility]) Body mass index (BMI) [Ratio] 19.3 kg/m2 19.3 k g/m2 MEDENT ([facility]) Body weight 123.00 [lb_av] 123.00 [lb_av] MEDEN T ([facility], ) Body height 67 [in_i] 67 [in_i] MEDENT (Health system, ) 5'7" Body mass index (BMI) [Ratio] 18.3 kg/m2 18.3 k g/m2 MEDENT ([facility] ) Body weight 117.00 [lb_av] 117.00 [lb_av] MEDEN T ([facility], ) Body height 67 [in_i] 67 [in_i] MEDENT ([facility], ) 5'7" Respiratory rate 12 /min 12 /min MEDENT ( [facility] ) Heart rate 68 /min 68 /min MEDENT ([facility], ) Diastolic blood pressure 64 mm[Hg] 64 mm[Hg] MEDENT ([facility], ) Systolic blood pressure 120 mm[Hg] 120 mm[Hg] M EDENT ([facility], ) Respiratory rate 20 /min 20 /min eCW1 ([facility]) Heart rate 83 /min 83 /min eCW1 ([facility]) Body mass index (BMI) [Ratio] 20.70 kg/m2 20.70 kg/m2 W1 ([facility]) Body height 67 [in_us] 67 [in_us] eCW1 ([facility]) Body weight Measured 132.2 [lb_av] 132.2 [lb_av ] eCW1 ([facility]) Diastolic blood pressure 62 mm[Hg] 62 mm[Hg] eCW1 ([facility]) Systolic blood pressure 110 mm[Hg] 110 mm[Hg] e CW1 ([facility]) Body temperature 98.1 [degF] 98.1 [degF] eCW1 ( [facility]) Diastolic blood pressure 76 mm[Hg] 76 mm[Hg] eCW1 ([facility]) Systolic blood pressure 126 mm[Hg] 126 mm[Hg] e CW1 ([facility]) Body temperature 97.0 [degF] 97.0 [degF] eCW1 ( [facility]) Respiratory rate 18 /min 18 /min eCW1 ([facility]) Heart rate 87 /min 87 /min eCW1 ([facility]) Body mass index (BMI) [Ratio] 20.67 kg/m2 20.67 kg/m2 eCW1 ([facility]) Body height 67 [in_us] 67 [in_us] eCW1 ([facility]) Body weight Measured 132.0 [lb_av] 132.0 [lb_av ] eCW1 ([facility]) Diastolic blood pressure 64 mm[Hg] 64 mm[Hg] eCW1 ([facility]) Systolic blood pressure 116 mm[Hg] 116 mm[Hg] e CW1 ([facility]) Body temperature 97.0 [degF] 97.0 [degF] eCW1 ( [facility]) Respiratory rate 18 /min 18 /min eCW1 ([facility]) Heart rate 89 /min 89 /min eCW1 ([facility]) Body mass index (BMI) [Ratio] 20.36 kg/m2 20.36 kg/m2 eCW1 ([facility]) Body height 67 [in_us] 67 [in_us] eCW1 ([facility]) Body weight Measured 130.0 [lb_av] 130.0 [lb_av ] eCW1 ([facility]) Body mass index (BMI) [Ratio] 20.0 kg/m2 20.0 k g/m2 MEDENT ([facility]) Body weight 131.62 [lb_av] 131.62 [lb_av] MEDEN T ([facility]) Diastolic blood pressure 68 mm[Hg] 68 mm[Hg] eCW1 ([facility]) Systolic blood pressure 104 mm[Hg] 104 mm[Hg] e CW1 ([facility]) Body temperature 97.4 [degF] 97.4 [degF] eCW1 ( [facility]) Respiratory rate 16 /min 16 /min eCW1 ([facility]) Heart rate 83 /min 83 /min eCW1 ([facility]) Body mass index (BMI) [Ratio] 20.52 kg/m2 20.52 kg/m2 eCW1 ([facility]) Body height 67 [in_us] 67 [in_us] eCW1 ([facility]) Body weight Measured 131 [lb_av] 131 [lb_av] eC W1 ([facility]) Patient Treatment Plan of Care Planned Activity Planned Date Details Description Data Source (s) Nystatin [id number] UNT/ML Topical Cream 07/10/2020 12:00:00 AM EDT eCW1 ([facility]) valganciclovir 450 MG Oral Tablet 07/10/2020 12:00:00 AM EDT eCW1 ([facility]) Nystatin [id number] UNT/ML Topical Cream 07/10/2020 12:00:00 AM EDT eCW1 ([facility]) valganciclovir 450 MG Oral Tablet 07/10/2020 12:00:00 AM EDT eCW1 ([facility]) Nystatin [id number] UNT/ML Topical Cream 07/10/2020 12:00:00 AM EDT eCW1 ([facility]) valganciclovir 450 MG Oral Tablet 07/10/2020 12:00:00 AM EDT eCW1 ([facility]) Nystatin [id number] UNT/ML Topical Cream 07/10/2020 12:00:00 AM EDT eCW1 ([facility]) valganciclovir 450 MG Oral Tablet 07/10/2020 12:00:00 AM EDT eCW1 ([facility]) Nystatin [id number] UNT/ML Topical Cream 07/10/2020 12:00:00 AM EDT eCW1 ([facility]) valganciclovir 450 MG Oral Tablet 07/10/2020 12:00:00 AM EDT eCW1 ([facility]) Rivaroxaban 20 MG 07/01/2020 12:00:00 AM EDT eCW1 ([facility]) Rivaroxaban 20 MG 07/01/2020 12:00:00 AM EDT eCW1 ([facility]) mesalamine 1200 MG Delayed Release Oral Tablet 06/24/2020 12:00:00 AM EDT eCW1 ([facility]) pregabalin 50 MG Oral Capsule [Lyrica] 04/01/2020 12:00:00 AM EDT eCW1 ([facility]) pregabalin 50 MG Oral Capsule [Lyrica] 04/01/2020 12:00:00 AM EDT eCW1 ([facility]) pregabalin 50 MG Oral Capsule [Lyrica] 04/01/2020 12:00:00 AM EDT eCW1 ([facility]) Docusate Sodium 100 MG Oral Capsule [Colace] 01/14/2020 12:00:00 AM EDT eCW1 ([facility]) Docusate Sodium 100 MG Oral Capsule [Colace] 01/14/2020 12:00:00 AM EDT eCW1 ([facility]) Hydrocortisone 25 MG/ML Topical Cream [Anusol HC] 01/07/2020 12: 00:00 AM EDT eCW1 ([facility]) Hydrocortisone 25 MG/ML Topical Cream [Anusol HC] 01/07/2020 12: 00:00 AM EDT eCW1 ([facility]) Hydrocortisone 25 MG/ML Topical Cream [Anusol HC] 01/07/2020 12: 00:00 AM EDT eCW1 ([facility]) Hydrocortisone 25 MG/ML Topical Cream [Anusol HC] 01/07/2020 12: 00:00 AM EDT eCW1 ([facility]) Hydrocortisone 25 MG/ML Topical Cream [Anusol HC] 01/07/2020 12: 00:00 AM EDT eCW1 ([facility]) Hydrocortisone 25 MG/ML Topical Cream [Anusol HC] 01/07/2020 12: 00:00 AM EDT eCW1 ([facility]) doxycycline hyclate 100 MG Oral Capsule 12/24/2019 12:00:00 AM EDT eCW1 ([facility]) doxycycline hyclate 100 MG Oral Capsule 12/24/2019 12:00:00 AM EDT eCW1 ([facility]) Depend Pant Medium 1 ea 11/22/2019 12:00:00 AM EST eCW1 ([facility]) Depend Pant Medium 1 ea 11/22/2019 12:00:00 AM EST eCW1 ([facility]) Depend Pant Medium 1 ea 11/22/2019 12:00:00 AM EST eCW1 ([facility]) Depend Pant Medium 1 ea 11/22/2019 12:00:00 AM EST eCW1 ([facility]) Calcium Carbonate 1000 MG Chewable Tablet [Tums] 11/22/2019 12:00:0 0 AM EST eCW1 ([facility]) Depend Pant Medium 1 ea 11/22/2019 12:00:00 AM EST eCW1 ([facility]) Calcium Carbonate 1000 MG Chewable Tablet [Tums] 11/22/2019 12:00:0 0 AM EST eCW1 ([facility]) Depend Pant Medium 1 ea 11/22/2019 12:00:00 AM EST eCW1 ([facility]) Hydrocortisone 25 MG/ML Topical Cream [Anusol HC] 10/16/2019 12: 00:00 AM EST eCW1 ([facility]) calcium polycarbophil 625 MG Oral Tablet [FiberCon] 10/16/19 12:00:00 AM EST eCW1 ([facility]) Calamine 80 MG/ML / Pramoxine hydrochloride 10 MG/ML T opical Lotion [Caladryl] 09/11/2019 12:00:00 AM EST eCW1 ([facility]) Valcyclovir-1000 mg TID 500 mg 09/11/2019 12:00:00 AM EST eCW1 ([facility])
--- NOTE | 2020-11-06 16:44 | HPE ---
HISTORY AND PHYSICAL DATE OF ADMISSION: 11/06/2020 CHIEF COMPLAINT: Anemia. HISTORY: Jacqui Little is an 80-year-old patient of Dr. Wali Ramsey, sent from his office with anemia. She has baseline hemoglobin of around 11. It was 10.9 on 08/25/2020. Routine lab work done yesterday showed a hemoglobin of 7.6. She was found to be heme-positive stools. She was admitted for further evaluation. She has a history of gastrointestinal (GI) bleeding, for which she underwent a colonoscopy 06/20/2020. She had Cytomegalovirus present on stain. Biopsy showed gastric inflammation and ulceration, terminal ileum, ___ ulceration, lymphoid aggregate, and changes consistent with aphthoid ulcerations. Colon biopsy had positive stain for Cytomegalovirus. Patient herself denies any visual rectal bleeding, dark stool, hematemesis, epistaxis, or urinary bleeding. She was heme positive in the emergency room. MEDICAL HISTORY: 1. Anticoagulation for history of atrial fibrillation. Atrial fibrillation onset was January 2019. Had a transthoracic echo January 2019. Left atrium was 30 mm. She has been anticoagulated since then. 2. She has myasthenia gravis diagnosed January 2019. Positive acetylcholine-receptor binding antibodies. 3. History of esophagitis, as noted above, with gastritis on recent biopsy. 4. History of migraine headaches. 5. Osteopenia. 6. Hyperlipidemia. 7. Prediabetes. 8. 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 Small-vessel disease noted. 9. History of chronic rhinitis. 10. Chronic sinusitis. 11. Eustachian tube dysfunction with intermittent dizziness. Led to an MRI scan January 2019. 12. Degenerative disc disease, multilevel, in the thoracic and lumbosacral spine. 13. Bilateral hip arthritis. Had left total hip replacement in [place] June 2016. 14. History of Raynaud's phenomenon. 15. 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 16. Right distal femur fracture with mechanical fall July 2021. SURGICAL HISTORY: 1. Hysterectomy with unilateral salpingo-oophorectomy (USO). 2. Cholecystectomy. 3. Appendectomy. 4. Colonoscopy July 2006 and then July 2020. 5. Right rotator cuff repair June 2012. 6. Left total hip replacement June 2016. 7. Open reduction right hip intertrochanteric fracture with nail placement by Dr. Burkett September 2017. 8. Right total hip replacement with removal intramedullary device, Dr. Ruiz, November 2018. 9. Right distal femur fracture, status post open reduction, internal fixation (ORIF) July 2021. FAMILY HISTORY: Noncontributory at her age. SOCIAL HISTORY: Nonsmoker. Lives at home. Just discharged from [facility], where she went for rehabilitation after a hip fracture a few weeks ago. ADVANCE DIRECTIVES: January 2018 Medical Orders for Life-Sustaining Treatment (MOLST) form is DO NOT RESUSCITATE/DO NOT INTUBATE. ALLERGIES: ANTIHISTAMINES cause a rash. IV CONTRAST DYE led to trouble breathing. DOXYCYCLINE caused nausea and vomiting. GABAPENTIN caused a rash. PEPCID caused vomiting. LEVAQUIN caused hives. SULFA caused a rash and hives. NOVOCAINE made her pass out. BIAXIN caused dyspepsia. PENICILLIN caused anaphylaxis. KEFLEX caused anaphylaxis. MOBIC caused nausea and vomiting. NITROFURANTOIN caused paresthesias. MEDICATIONS: - aspirin 81 mg daily - Voltaren gel as needed - Tylenol as needed - esomeprazole 40 mg daily - Prolia subcutaneous injections for osteopenia - furosemide 40 mg daily - vitamin D 50,000 units weekly - Tums one tablet twice a day - Seroquel 25 mg at bedtime - pyridostigmine 60 mg four times a day - mycophenolate 500 mg two capsules twice a day - prednisone 20 mg daily for myasthenia gravis - metoprolol 25 mg twice a day - nystatin as needed - Xarelto 20 mg daily REVIEW OF SYSTEMS: As above. No visible rectal bleeding. No epistaxis, urinary bleeding, hematemesis, hemoptysis, unexplained weight loss. PHYSICAL EXAMINATION: Blood pressure 125/60, vital signs stable. Oxygen saturation 100%. GENERAL APPEARANCE: Elderly, resting comfortably. Seems to be showing some baseline dementia (10/17/2020 office note indicated the patient was having occasional hallucinations). Pupils equal, round and reactive to light. Pharynx benign. NECK: No masses. LUNGS: Clear. HEART: Regular rate and rhythm. Rate around 70. ABDOMEN: Soft, nontender. No masses. Stool heme-positive per report from the emergency room EXTREMITIES: Peripheral edema 1+. No clubbing, cyanosis. Venous stasis present. Varicose veins present. Moves arms and legs with equal strength. LABORATORY DATA: White count 9.9, hemoglobin 8.2, platelets 405. Chemistries yesterday looked unremarkable. COVID test is negative. IMPRESSION: 1. Anemia from presumed chronic gastrointestinal (GI) blood loss. Ordered iron studies. Will do serial complete blood counts (CBCs). If hemoglobin remains stable, she can have endoscopy as an outpatient. Patient wanted to get home tomorrow. Is asking to remarkable receive blood transfusions and be discharged in the morning. 2. Atrial fibrillation. Hold anticoagulant. Continue other medications. Will need to restart anticoagulant in the near future, as thromboembolic risk will accumulate over time. 3. Myasthenia gravis. Continue current medicines. No evidence of any neurologic decline. 4. Hypertension. Continue current medications. 5. History of gastritis. Continue esomeprazole. 6. History of Cytomegalovirus (CMV) mancilla colitis. If she ends up having endoscopy, will be sure that biopsies are performed and stained appropriately. 7. Code status. DO NOT RESUSCITATE/ DO NOT INTUBATE per office record.
[2020-11-06] MEDS: PYRIDOSTIGMINE 60 MG TAB PO SCH ×2 (17:00→21:07)
[2020-11-06] MEDS: NS 1,000 ML IV SCH ×2 (19:57→22:30)
[2020-11-06] MEDS ORDERED: QUEtiapine FUMARATE 25 MG TAB PO SCH (21:00)
[2020-11-06] MEDS: MYCOPHENOLATE MOFETIL 250 MG CAP (J7517) PO SCH (21:07)
[2020-11-06] MEDS: METOPROLOL TART 25 MG TABLET PO SCH (21:08)
[2020-11-07] MEDS: NS 1,000 ML IV SCH (05:16)
[2020-11-07 06:00] VITALS: BP 122/52
[2020-11-07 06:10] LABS: HEMATOCRIT 30.3 % (36.0-47.0); HEMOGLOBIN 9.2 g/dl (12.0-15.5); MEAN CORPUSCULAR HEMOGLOBIN 26.2 pg (27.0-33.0); MEAN CORPUSCULAR HGB CONC 30.4 g/dl (32.0-36.5); MEAN CORPUSCULAR VOLUME 86.3 fl (80.0-96.0); PLATELET COUNT, AUTOMATED 434 10^3/uL (150-450); RED BLOOD COUNT 3.51 10^6/uL (4.00-5.40); WHITE BLOOD COUNT 9.7 10^3/uL (4.0-10.0)
[2020-11-07 06:38] LABS: BLOOD UREA NITROGEN 14 MG/DL (7-18); CALCIUM LEVEL 7.6 MG/DL (8.8-10.2); CARBON DIOXIDE LEVEL 28 MEQ/L (21-32); CHLORIDE LEVEL 111 MEQ/L (98-107); CREATININE FOR GFR 0.73 MG/DL (0.55-1.30); GLOMERULAR FILTRATION RATE > 60.0 (>32); GLUCOSE, FASTING 73 MG/DL (70-100); POTASSIUM SERUM 3.3 MEQ/L (3.5-5.1); SODIUM LEVEL 145 MEQ/L (136-145)
[2020-11-07] MEDS ORDERED: POTASSIUM CHLORIDE 10 MEQ SR TABLET PO SCH (08:00)
--- NOTE | 2020-11-07 08:22 | IPN ---
PROGRESS NOTE DATE: 11/07/2020 SUBJECTIVE: Jacqui is feeling well. She has had a little bit of abdominal pain. Her hemoglobin is up to 9.2 after transfusion. No shortness of breath, palpitations, or chest pain. PHYSICAL EXAMINATION: VITAL SIGNS: Blood pressure 122/52, afebrile. LUNGS: Clear. HEART: Regular rate and rhythm. ABDOMEN: Soft, nontender. No masses. Trace peripheral edema. IMPRESSION: 1. Anemia from presumed chronic GI blood loss, she has been transfused. If her hemoglobin remains stable will discharge her tomorrow. 2. Atrial fibrillation, anticoagulant is on hold. This will need to be restarted promptly as an outpatient. 3. Myasthenia gravis, no sign of any crisis related to the anemia. 4. History of cytomegalovirus mancilla colitis. She had a recent colonoscopy that shows CMV on biopsies. Should she need repeat endoscopy will need to have biopsies performed and appropriately stained. 5. She is to be discharged tomorrow if hemoglobin is stable.
[2020-11-07] MEDS ORDERED: predniSONE 20 MG TAB PO SCH (09:00)
[2020-11-07] MEDS ORDERED: PANTOPRAZOLE 40MG TAB (PROTONIX) PO SCH (09:00)
[2020-11-07] MEDS: PYRIDOSTIGMINE 60 MG TAB PO SCH ×2 (10:30→14:47)
[2020-11-07 10:31] VITALS: BP 120/54
[2020-11-07] MEDS: MYCOPHENOLATE MOFETIL 250 MG CAP (J7517) PO SCH (10:31)
[2020-11-07] MEDS: METOPROLOL TART 25 MG TABLET PO SCH (10:31)
== END 2020-11-07 16:30 | disposition home or self-care (01) | DRG 812 ==
LOC: M ED 11:14 → M ED INP 15:47 → M MS5PR 18:20
PROVIDERS: ADMIT Family Medicine; ATTEND Family Medicine
PROC: 30233N1 Transfusion of Nonautologous Red Blood Cells into Peripheral Vein, Percutaneous Approach (ICD-10-PCS; principal; 2020-11-06)
DX: D50.0 Iron deficiency anemia secondary to blood loss (chronic) (principal); B25.8 Other cytomegaloviral diseases; I48.20 Chronic atrial fibrillation, unspecified; G70.00 Myasthenia gravis without (acute) exacerbation; Z79.01 Long term (current) use of anticoagulants; G43.909 Migraine, unspecified, not intractable, without status migrainosus; E78.5 Hyperlipidemia, unspecified; Z96.643 Presence of artificial hip joint, bilateral; Z86.73 Personal history of transient ischemic attack (TIA), and cerebral infarction without residual deficits; Z66 Do not resuscitate

== ENCOUNTER → 2020-11-10 | Outpatient (REF) | payer MEDICARE, MEDICAID ==
[~2020-11-10] MED LIST changes: +ANUS25SU PR; +MYCO500T PO; +PROC1CRE5 PR; +[UNRECOGNIZED DRUG - REMARK]
[2020-11-10 17:51] LABS: BASO % 0.3 % (0.0-1.0); HEMATOCRIT 36.3 % (36.0-47.0); HEMOGLOBIN 10.4 g/dl (12.0-15.5); LYMPH # 0.9 10^3/uL (1.5-5.0); LYMPH % 7.8 % (24.0-44.0); MEAN CORPUSCULAR HEMOGLOBIN 25.6 pg (27.0-33.0); MEAN CORPUSCULAR HGB CONC 28.7 g/dl (32.0-36.5); MEAN CORPUSCULAR VOLUME 89.2 fl (80.0-96.0); MONO # 0.4 10^3/uL (0.0-0.8); MONO % 3.4 % (2.0-8.0); NEUTROPHILS # 9.7 10^3/uL (1.5-8.5); NEUTROPHILS % 87.3 % (36.0-66.0); PLATELET COUNT, AUTOMATED 496 10^3/uL (150-450); RED BLOOD COUNT 4.07 10^6/uL (4.00-5.40)
[2020-11-10 18:13] LABS: ALBUMIN 3.4 GM/DL (3.2-5.2); BILIRUBIN,TOTAL 0.2 MG/DL (0.2-1.0); C REACTIVE PROTEIN QUANTITATIV 0.69 MG/DL (0.00-0.30); CALCIUM LEVEL 8.6 MG/DL (8.8-10.2); GLOMERULAR FILTRATION RATE 56.5 (>32); PERCENT SATURATION 6.2 % (13.2-45.0); POTASSIUM SERUM 4.1 MEQ/L (3.5-5.1); TOTAL PROTEIN 6.4 GM/DL (6.4-8.2)
[2020-11-10 19:07] LABS: ERYTHROCYTE SEDIMENTATION RATE 22 mm/hr (0-30)
== END ==
LOC: M SFHCPLAZ 14:42
PROVIDERS: ATTEND Family Medicine
DX: D50.9 Iron deficiency anemia, unspecified (principal); I50.32 Chronic diastolic (congestive) heart failure
CPT/HCPCS: 36415; 80053; 82728; 83550; 83880; 85025; 85652; 86140; 86677; 99496; G0463

== ENCOUNTER 2020-11-14 07:55 | Outpatient (CLI) | payer MEDICARE, MEDICAID ==
[~2020-11-14] VITALS: Ht 165.1 cm; Wt 62.2 kg
[~2020-11-14 07:55] MED LIST changes: +ALBUTEROL SULFATE 2.5 MG/0.5 ML INH NEB SOLN INH PRN; -ANUS25SU PR; +EPINEPHrine INJ 1 MG/ML 1ML AMP IM PRN; +diphenhydrAMINE 50MG/ML VIAL (J1200) IV PRN; +methylPREDNISolone 125MG 2ML VIAL IV PRN
[2020-11-14] MEDS ORDERED: NS 1,000 ML IV SCH (08:00)
[2020-11-14] MEDS ORDERED: FERRIC CARBOXYMALTOSE INJ 750 MG, VIAL MATE ADAPTER 1 EACH in NS 250 ML IV ONE (08:00)
[2020-11-14 08:05] VITALS: BP 120/59
[2020-11-14 09:40] VITALS: BP 124/59
== END 2020-11-14 09:50 | disposition home or self-care (01) ==
LOC: M INFU 07:55
PROVIDERS: ATTEND Family Medicine
DX: D50.9 Iron deficiency anemia, unspecified (principal); Z88.1 Allergy status to other antibiotic agents; Z88.2 Allergy status to sulfonamides; Z88.6 Allergy status to analgesic agent; Z88.8 Allergy status to other drugs, medicaments and biological substances
CPT/HCPCS: 96365; J1439

== ENCOUNTER → 2020-11-19 | Outpatient (REF) | payer MEDICARE, MEDICAID ==
[~2020-11-19] MED LIST changes: -ALBUTEROL SULFATE 2.5 MG/0.5 ML INH NEB SOLN INH PRN; -EPINEPHrine INJ 1 MG/ML 1ML AMP IM PRN; -diphenhydrAMINE 50MG/ML VIAL (J1200) IV PRN; -methylPREDNISolone 125MG 2ML VIAL IV PRN
== END ==
LOC: M LAB REF 13:47
PROVIDERS: ATTEND Internal Medicine Gastroenterology
DX: R19.7 Diarrhea, unspecified (principal)

== ENCOUNTER 2020-11-29 10:33 | Emergency (ER) | payer MEDICARE, MEDICAID ==
[~2020-11-29] VITALS: Ht 172.7 cm; Wt 61.8 kg
[2020-11-29 11:37] LABS: BASO # 0.1 10^3/uL (0.0-0.2); BASO % 0.5 % (0.0-1.0); EOS # 0.1 10^3/uL (0.0-0.5); EOS % 0.7 % (0.0-3.0); HEMATOCRIT 42.6 % (36.0-47.0); HEMOGLOBIN 12.5 g/dl (12.0-15.5); LYMPH # 1.1 10^3/uL (1.5-5.0); MEAN CORPUSCULAR HEMOGLOBIN 26.4 pg (27.0-33.0); MEAN CORPUSCULAR HGB CONC 29.3 g/dl (32.0-36.5); MEAN CORPUSCULAR VOLUME 89.9 fl (80.0-96.0); MONO # 0.7 10^3/uL (0.0-0.8); MONO % 5.2 % (2.0-8.0); NEUTROPHILS # 11.1 10^3/uL (1.5-8.5); NEUTROPHILS % 84.2 % (36.0-66.0); PLATELET COUNT, AUTOMATED 410 10^3/uL (150-450); RED BLOOD COUNT 4.74 10^6/uL (4.00-5.40); WHITE BLOOD COUNT 13.2 10^3/uL (4.0-10.0)
[2020-11-29] MEDS ORDERED: POTASSIUM CHLORIDE 10 MEQ SR TABLET PO ONE (12:05)
[2020-11-29 12:08] LABS: ALBUMIN 3.4 GM/DL (3.2-5.2); ALT/SGPT 18 U/L (12-78); BILIRUBIN,DIRECT < 0.1 MG/DL (0.0-0.2); BILIRUBIN,TOTAL 0.2 MG/DL (0.2-1.0); LIPASE 301 U/L (73-393); TOTAL PROTEIN 6.4 GM/DL (6.4-8.2)
--- NOTE | 2020-11-29 13:07 | ECGEPIP ---
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
[2020-11-29 15:37] LABS: HEMATOCRIT 41.4 % (36.0-47.0); HEMOGLOBIN 12.4 g/dl (12.0-15.5); MEAN CORPUSCULAR HEMOGLOBIN 26.6 pg (27.0-33.0); MEAN CORPUSCULAR VOLUME 88.8 fl (80.0-96.0); RED BLOOD COUNT 4.66 10^6/uL (4.00-5.40); WHITE BLOOD COUNT 11.6 10^3/uL (4.0-10.0)
[2020-11-29 16:07] LABS: PLATELET COUNT, AUTOMATED 296 10^3/uL (150-450)
[2020-11-29] MEDS ORDERED: ANUS25SU PR (16:15)
[2020-11-29 16:43] VITALS: BP 133/60
== END 2020-11-29 17:00 | disposition home or self-care (01) ==
LOC: M ED 10:33
DX: K64.9 Unspecified hemorrhoids (principal); I48.91 Unspecified atrial fibrillation; R78.5 Finding of other psychotropic drug in blood; G70.00 Myasthenia gravis without (acute) exacerbation; G43.909 Migraine, unspecified, not intractable, without status migrainosus; I73.00 Raynaud's syndrome without gangrene; Z86.73 Personal history of transient ischemic attack (TIA), and cerebral infarction without residual deficits; Z88.0 Allergy status to penicillin; Z88.1 Allergy status to other antibiotic agents; Z88.2 Allergy status to sulfonamides; Z88.8 Allergy status to other drugs, medicaments and biological substances; Z79.899 Other long term (current) drug therapy